=== PATIENT | female | born 1960 | race Caucasian/White ===

== ENCOUNTER 2021-01-01 14:00 | Inpatient (IN) | payer SELFPAY ==
[~2021-01-01] VITALS: Ht 165.1 cm; Wt 108.9 kg
--- NOTE | 2021-01-01 14:07 | ED General ---
General Stated Complaint: SOB History of Present Illness Date Seen by Provider: Jan 01, 2021 Time Seen by Provider: 14:07 Initial Comments 60-year-old female presents with shortness of breath. Patient reports that she has had shortness of breath for about 4 days. Patient has what sounds like an underlying COPD and takes inhalers for it. She reports that she has had "pneumonia" 5 or 6 times in the past and this seems similar. Patient states that she has not drink for 2 years but has been drinking vodka and large amounts for the last 3 days. Patient denies any chest pain. She denies any fevers or chills. She has been increasing and using inhaler for the last 4 days. Patient has a chronic cough. She denies any fevers or chills. She has not obtained a Covid vaccination and does not know of any Covid exposure. Patient believes she has allergies but she does not know what they are. Allergies and Home Medications Allergies Coded Allergies: No Known Drug Allergies (Unverified , 01/01/21) Patient Home Medication List Home Medication List Reviewed: Yes Review of Systems Review of Systems Constitutional: No chills, No fever; malaise EENTM: no symptoms reported Respiratory: cough, short of breath, wheezing Cardiovascular: No chest pain, No palpitations Gastrointestinal: No abdominal pain, No nausea, No vomiting Genitourinary: no symptoms reported Musculoskeletal: no symptoms reported Skin: no symptoms reported Psychiatric/Neurological: See HPI Hematologic/Lymphatic: No Symptoms Reported Immunological/Allergic: no symptoms reported Past Dquosxg-Ppdatq-Xehwxs Hx Patient Social History Tobacco Use?: No Physical Exam Vital Signs Vital Signs - First Documented 01/01/21 14:06 Temp 36.5 Pulse 109 Resp 20 B/P (MAP) 163/63 (96) Pulse Ox 91 O2 Delivery Nasal Cannula O2 Flow Rate 2.00 Capillary Refill : Height, Weight, BMI Height: '" Weight: lbs. oz. kg; BMI Method: General Appearance: Anxious HEENT: Pharynx Normal Neck: Non Tender, Supple Respiratory: No Accessory Muscle Use, No Respiratory Distress, Decreased Breath Sounds, Wheezing Cardiovascular: Tachycardia Gastrointestinal: Non Tender, Soft Extremity: Normal Capillary Refill, Normal Range of Motion Neurologic/Psychiatric: No Motor/Sensory Deficits, Other (Intoxicated) Skin: Normal Color, Warm/Dry Focused Exam Lactate Level 01/01/21 14:23: Lactic Acid Level 3.89*H 01/01/21 16:22: Lactic Acid Level 3.56*H Lactic Acid Level Laboratory Tests Test 01/01/21 14:23 01/01/21 16:22 Lactic Acid Level 3.89 MMOL/L (0.50-2.00) *H 3.56 MMOL/L (0.50-2.00) *H Progress/Results/Core Measures Suspected Sepsis SIRS Temperature: Pulse: Respiratory Rate: Laboratory Tests 01/01/21 14:23: White Blood Count 7.7 Blood Pressure / Mean: 01/01/21 14:23: Lactic Acid Level 3.89*H 01/01/21 16:22: Lactic Acid Level 3.56*H Laboratory Tests 01/01/21 14:23: Creatinine 0.67, Platelet Count 155, Total Bilirubin 0.5 Results/Orders Lab Results Laboratory Tests Test 01/01/21 14:10 01/01/21 14:23 01/01/21 14:26 01/01/21 16:22 Range/Units Urine Color YELLOW Urine Clarity CLOUDY Urine pH 6.0 5-9 Urine Specific Elida 1.020 1.016-1.022 Urine Protein 2+ H NEGATIVE Urine Glucose (UA) NEGATIVE NEGATIVE Urine Ketones NEGATIVE NEGATIVE Urine Nitrite NEGATIVE NEGATIVE Urine Bilirubin NEGATIVE NEGATIVE Urine Urobilinogen >=8.0 < = 1.0 MG/DL Urine Leukocyte Esterase TRACE H NEGATIVE Urine RBC (Auto) TRACE-I NEGATIVE Urine RBC 2-5 H /HPF Urine WBC 10-25 H /HPF Urine Squamous Epithelial Cells 25-50 H /HPF Urine Crystals NONE /LPF Urine Bacteria LARGE H /HPF Urine Casts NONE /LPF Urine Mucus NEGATIVE /LPF Urine Culture Indicated NO Urine Opiates Screen POSITIVE H NEGATIVE Urine Oxycodone Screen NEGATIVE NEGATIVE Urine Methadone Screen NEGATIVE NEGATIVE Urine Propoxyphene Screen NEGATIVE NEGATIVE Urine Barbiturates Screen NEGATIVE NEGATIVE Ur Tricyclic Antidepressants Screen NEGATIVE NEGATIVE Urine Phencyclidine Screen NEGATIVE NEGATIVE Urine Amphetamines Screen NEGATIVE NEGATIVE Urine Methamphetamines Screen NEGATIVE NEGATIVE Urine Benzodiazepines Screen POSITIVE H NEGATIVE Urine Cocaine Screen NEGATIVE NEGATIVE Urine Cannabinoids Screen NEGATIVE NEGATIVE White Blood Count 7.7 4.3-11.0 10^3/uL Red Blood Count 4.18 L 4.35-5.85 10^6/uL Hemoglobin 12.2 11.5-16.0 G/DL Hematocrit 36 35-52 % Mean Corpuscular Volume 87 80-99 FL Mean Corpuscular Hemoglobin 29 25-34 PG Mean Corpuscular Hemoglobin Concent 34 32-36 G/DL Red Cell Distribution Width 14.6 H 10.0-14.5 % Platelet Count 155 130-400 10^3/uL Mean Platelet Volume 10.6 H 7.4-10.4 FL Immature Granulocyte % (Auto) 0 % Neutrophils (%) (Auto) 67 42-75 % Lymphocytes (%) (Auto) 27 12-44 % Monocytes (%) (Auto) 5 0-12 % Eosinophils (%) (Auto) 0 0-10 % Basophils (%) (Auto) 0 0-10 % Neutrophils # (Auto) 5.2 1.8-7.8 X 10^3 Lymphocytes # (Auto) 2.1 1.0-4.0 X 10^3 Monocytes # (Auto) 0.4 0.0-1.0 X 10^3 Eosinophils # (Auto) 0.0 0.0-0.3 10^3/uL Basophils # (Auto) 0.0 0.0-0.1 10^3/uL Immature Granulocyte # (Auto) 0.0 0.0-0.1 10^3/uL Sodium Level 138 135-145 MMOL/L Potassium Level 3.4 L 3.6-5.0 MMOL/L Chloride Level 99 98-107 MMOL/L Carbon Dioxide Level 21 21-32 MMOL/L Anion Gap 18 H 5-14 MMOL/L Blood Urea Nitrogen 8 7-18 MG/DL Creatinine 0.67 0.60-1.30 MG/DL Estimat Glomerular Filtration Rate 89 BUN/Creatinine Ratio 12 Glucose Level 143 H 70-105 MG/DL Lactic Acid Level 3.89 *H 3.56 *H 0.50-2.00 MMOL/L Calcium Level 8.3 L 8.5-10.1 MG/DL Corrected Calcium 8.5 8.5-10.1 MG/DL Magnesium Level 1.6 1.6-2.4 MG/DL Total Bilirubin 0.5 0.1-1.0 MG/DL Aspartate Amino Transf (AST/SGOT) 89 H 5-34 U/L Alanine Aminotransferase (ALT/SGPT) 75 H 0-55 U/L Alkaline Phosphatase 334 H 40-136 U/L Total Protein 7.0 6.4-8.2 GM/DL Albumin 3.8 3.2-4.5 GM/DL Serum Alcohol 163 H <10 MG/DL My Orders Orders - RONAK THOMAS DO Alcohol (01/01/21 14:12) Cbc With Automated Diff (01/01/21 14:12) Comprehensive Metabolic Panel (01/01/21 14:12) Drug Screen Stat (Urine) (01/01/21 14:12) Magnesium (01/01/21 14:12) Ua Culture If Indicated (01/01/21 14:12) Albuterol/Ipra Inhalation Soln (Duoneb I (01/01/21 14:15) Methylprednisolone Sod Succ (Solu-Medrol (01/01/21 14:12) Svn Small Volume Nebulizer (01/01/21 14:12) Chest 1 View Ap/Pa Only (01/01/21 14:12) Covid 19 Inhouse Test (01/01/21 14:12) Ceftriaxone (Rocephin) (01/01/21 14:30) Azithromycin Injection (Zithromax Inject (01/01/21 14:30) Lactic Acid Analyzer (01/01/21 14:27) Acetaminophen Tablet (Tylenol Tablet) (01/01/21 14:52) Ondansetron Injection (Zofran Injectio (01/01/21 15:10) Ondansetron Injection (Zofran Injectio (01/01/21 15:15) Medications Given in ED Current Medications Medications Dose Ordered Sig/Gallito Route Start Time Stop Time Status Last Admin Dose Admin Albuterol/ Ipratropium 3 ml ONCE ONCE INH 01/01/21 14:15 01/01/21 14:16 DC 01/01/21 14:55 3 ML Azithromycin 500 mg/Sodium Chloride 255 ml @ 250 mls/hr ONCE ONCE IV 01/01/21 14:30 01/01/21 15:31 DC 01/01/21 15:01 250 MLS/HR Ceftriaxone Sodium 1000 mg/ Sterile Water 10 ml @ 200 mls/hr ONCE ONCE IV 01/01/21 14:30 01/01/21 14:32 DC 01/01/21 14:56 200 MLS/HR Ondansetron HCl 4 mg ONCE ONCE IVP 7/23/21 15:15 01/01/21 15:16 DC 01/01/21 15:15 4 MG Vital Signs/I&O 01/01/21 01/01/21 14:06 16:18 Temp 36.5 Pulse 109 98 Resp 20 20 B/P (MAP) 163/63 (96) 163/63 Pulse Ox 91 94 O2 Delivery Nasal Cannula Nasal Cannula O2 Flow Rate 2.00 2.00 Capillary Refill : Progress Note : Progress Note Patient x-ray shows pulmonary edema versus consolidation. Patient's lactic acid is elevated is likely result of her alcohol intoxication and abuse. Patient is requiring small amount of 2 L oxygen. We did attempt to wean starting at 1 L. She was able to maintain her oxygen on 1 L for a few minutes and it started to drop back in the upper 80s again. Patient is a likely with just some COPD with some pulmonary edema but she will be treated with azithromycin and Rocephin for early pneumonia. Patient stable, I did discuss with Dr. Juan and we will admit her for observation at [facility]. Patient was transferred in stable condition. ECG Initial ECG Impression Date: Jan 01, 2021 Initial ECG Impression Time: 14:12 Initial ECG Rate: 103 Initial ECG Rhythm: S.Tach Initial ECG Intervals: Normal Initial ECG Impression: Normal Comment No acute findings Diagnostic Imaging Diagonstic Imaging: Xray Plain Films/CT/US/NM/MRI: chest Comments CHEST 1 VIEW AP/PA ONLY EXAMINATION: Chest 1 view. HISTORY: SOB. COMPARISON: None available. FINDINGS: Heart size is upper limits of normal. There is prominence of the pulmonary vasculature which can be seen with pulmonary vascular congestion. There are patchy interstitial opacities within the left midlung and bilateral lung bases. No pleural effusion or pneumothorax. The osseous structures are intact. IMPRESSION: 1. Findings of pulmonary vascular congestion with findings of pulmonary edema or bibasilar atelectasis/consolidation. Departure Impression Primary Impression: Hypoxia Additional Impressions: Alcohol intoxication Qualified Codes: F10.920 - Alcohol use, unspecified with intoxication, uncomplicated COPD (chronic obstructive pulmonary disease) Qualified Codes: J44.9 - Chronic obstructive pulmonary disease, unspecified Pulmonary edema Qualified Codes: J81.0 - Acute pulmonary edema Disposition: 30 STILL A PATIENT Condition: Stable Departure-Patient Inst. Referrals: NO,LOCAL PHYSICIAN (PCP/Family) Primary Care Physician RONAK THOMAS DO Jan 01, 2021 14:07
[2021-01-01] MEDS ORDERED: methylPREDNISolone 125 MG (Solu-MEDROL) VIAL IV STA (14:12)
[2021-01-01] MEDS ORDERED: RT-ALBUTEROL/IPRATROPIUM 3 ML (DUONEB) VIAL INH ONE (14:15)
[2021-01-01] MEDS ORDERED: AZITHROMYCIN INJECTION 500 MG in NS (IVPB) 250 ML IV ONE (14:30)
[2021-01-01] MEDS ORDERED: cefTRIAXone 1,000 MG in WATER (STERILE) FOR INJECTION 10 ML IV ONE (14:30)
--- NOTE | 2021-01-01 14:35 | Diagnostic Imaging Report ---
EXAMINATION: Chest 1 view. HISTORY: SOB. COMPARISON: None available. FINDINGS: Heart size is upper limits of normal. There is prominence of the pulmonary vasculature which can be seen with pulmonary vascular congestion. There are patchy interstitial opacities within the left midlung and bilateral lung bases. No pleural effusion or pneumothorax. The osseous structures are intact. IMPRESSION: 1. Findings of pulmonary vascular congestion with findings of pulmonary edema or bibasilar atelectasis/consolidation. Dictated by: Dictated on workstation # [id number]
[2021-01-01 14:43] LABS: WHITE BLOOD COUNT 7.7 10^3/uL (4.3-11.0)
[2021-01-01 14:44] LABS: BASOPHILS % (AUTO) 0 % (0-10); EOSINOPHILS % (AUTO) 0 % (0-10); HEMATOCRIT 36 % (35-52); HEMOGLOBIN 12.2 G/DL (11.5-16.0); LYMPHOCYTES % (AUTO) 27 % (12-44); MEAN CORPUSCULAR HEMOGLOBIN 29 PG (25-34); MEAN CORPUSCULAR HGB CONC 34 G/DL (32-36); MEAN CORPUSCULAR VOLUME 87 FL (80-99); MEAN PLATELET VOLUME 10.6 FL (7.4-10.4); MONOCYTES % (AUTO) 5 % (0-12); NEUTROPHILS % (AUTO) 67 % (42-75); PLATELET COUNT 155 10^3/uL (130-400)
[2021-01-01 14:45] LABS: LYMPHOCYTES # (AUTO) 2.1 X 10^3 (1.0-4.0); MONOCYTES # (AUTO) 0.4 X 10^3 (0.0-1.0); NEUTROPHILS # (AUTO) 5.2 X 10^3 (1.8-7.8)
[2021-01-01 14:54] LABS: POTASSIUM 3.4 MMOL/L (3.6-5.0)
[2021-01-01 14:55] LABS: ALBUMIN 3.8 GM/DL (3.2-4.5); BILIRUBIN,TOTAL 0.5 MG/DL (0.1-1.0); CALCIUM 8.3 MG/DL (8.5-10.1); CREATININE SERUM 0.67 MG/DL (0.60-1.30); MAGNESIUM 1.6 MG/DL (1.6-2.4)
[2021-01-01] MEDS: ACETAMINOPHEN 500 MG TAB (TYLENOL) PO STA ×2 (15:04→15:07)
[2021-01-01 15:07] LABS: BILIRUBIN,URINE NEGATIVE (NEGATIVE); CLARITY,URINE CLOUDY; COLOR,URINE YELLOW; GLUCOSE, URINE (UA) NEGATIVE (NEGATIVE); KETONES,URINE NEGATIVE (NEGATIVE); NITRITE,URINE NEGATIVE (NEGATIVE); PROTEIN,URINE 2+ (NEGATIVE)
[2021-01-01 15:08] LABS: BACTERIA,URINE LARGE /HPF; LEUKOCYTE ESTERASE ,URINE TRACE (NEGATIVE); SQUAMOUS EPITHELIAL CELL,UR 25-50 /HPF
[2021-01-01] MEDS ORDERED: ONDANSETRON 4 MG/2 ML (SDV) Z0FRAN ONE (15:10)
[2021-01-01 15:11] LABS: AMPHETAMINE SCREEN, URINE NEGATIVE (NEGATIVE); BENZODIAZEPINES SCREEN URINE POSITIVE (NEGATIVE); CANNABINOID SCREEN, URINE NEGATIVE (NEGATIVE); COCAINE SCREEN URINE NEGATIVE (NEGATIVE); METHAMPHETAMINE SCREEN URINE S NEGATIVE (NEGATIVE); OPIATE SCREEN URINE POSITIVE (NEGATIVE)
[2021-01-01 15:12] LABS: BARBITURATE SCREEN URINE NEGATIVE (NEGATIVE); METHADONE STAT NEGATIVE (NEGATIVE); OXYCODONE STAT NEGATIVE (NEGATIVE); PROPOXYPHENE STAT NEGATIVE (NEGATIVE); TRICYCLIC ANTIDEPRESSANTS SCRE NEGATIVE (NEGATIVE)
[2021-01-01] MEDS ORDERED: ONDANSETRON 4 MG/2 ML (SDV) Z0FRAN IVP ONE (15:15)
[2021-01-01 17:54] VITALS: BP 136/72
[2021-01-01] MEDS ORDERED: RT-ALBUTEROL SULF 2.5 MG/3 ML PRE-MIX VIAL IH PRN (18:00)
[2021-01-01] MEDS ORDERED: CATHETER FLUSH 10 ML SYR IV PRN (18:00)
[2021-01-01] MEDS: LACTATED RINGERS 1,000 ML IV SCH (18:47)
[2021-01-01] MEDS ORDERED: HYDR-3817 PO (19:33)
[2021-01-01] MEDS ORDERED: QUET100T PO (19:33)
[2021-01-01] MEDS ORDERED: QUET50TA PO ×2 (19:33)
[2021-01-01] MEDS ORDERED: QUET400T PO (19:33)
[2021-01-01] MEDS ORDERED: PRAM0.5T2 PO (19:33)
[2021-01-01] MEDS ORDERED: ALPR0.5T PO (19:33)
[2021-01-01] MEDS ORDERED: MTP25TSR PO (19:33)
[2021-01-01 20:26] VITALS: BP 132/77
[2021-01-01] MEDS ORDERED: PRAMIPEXOLE 0.5 MG TAB (MIRAPEX) PO SCH (21:00)
[2021-01-01] MEDS ORDERED: RT-ALBUTEROL/IPRATROPIUM 3 ML (DUONEB) VIAL INH SCH (21:00)
[2021-01-01] MEDS: QUEtiapine 200 MG (SEROquel) TAB IMMEDIATE RELEASE PO SCH (21:36)
[2021-01-01] MEDS: meTOprolol TARTRATE 25 MG (LOPRESSOR) TABLET PO SCH (21:37)
[2021-01-01] MEDS ORDERED: ENOXAPARIN 30 MG/0.3 ML (LOVENOX) SYR SC SCH (21:45)
[2021-01-01 23:08] VITALS: BP 121/57
[2021-01-02] MEDS: RT-ALBUTEROL INHALER HFA (VENTOLIN HFA) 18 GM IH SCH ×4 (01:44→21:09)
[2021-01-02] MEDS: LACTATED RINGERS 1,000 ML IV SCH ×3 (02:27→18:39)
[2021-01-02 04:08] VITALS: BP 128/61
[2021-01-02] MEDS: dexAMETHasone 6 MG TAB (DECADRON) PO SCH (05:45)
[2021-01-02 05:53] LABS: BASOPHILS % (AUTO) 0 % (0-10); EOSINOPHILS % (AUTO) 0 % (0-10); HEMATOCRIT 35 % (35-52); HEMOGLOBIN 11.7 g/dL (11.5-16.0); LYMPHOCYTES # (AUTO) 0.9 10^3/uL (1.0-4.0); LYMPHOCYTES % (AUTO) 22 % (12-44); MEAN CORPUSCULAR HEMOGLOBIN 29 pg (25-34); MEAN CORPUSCULAR HGB CONC 33 g/dL (32-36); MEAN CORPUSCULAR VOLUME 89 fL (80-99); MEAN PLATELET VOLUME 10.9 fL (9.0-12.2); MONOCYTES # (AUTO) 0.2 10^3/uL (0.0-1.0); MONOCYTES % (AUTO) 4 % (0-12); NEUTROPHILS # (AUTO) 3.2 10^3/uL (1.8-7.8); NEUTROPHILS % (AUTO) 75 % (42-75); PLATELET COUNT 144 10^3/uL (130-400); WHITE BLOOD COUNT 4.3 10^3/uL (4.3-11.0)
[2021-01-02 06:02] LABS: ALBUMIN 3.6 GM/DL (3.2-4.5)
[2021-01-02 06:04] LABS: CALCIUM 8.4 MG/DL (8.5-10.1)
[2021-01-02 06:05] LABS: TOTAL PROTEIN 6.7 GM/DL (6.4-8.2)
[2021-01-02 06:07] LABS: BILIRUBIN,TOTAL 0.5 MG/DL (0.1-1.0)
[2021-01-02 06:09] LABS: CREATININE SERUM 0.93 MG/DL (0.60-1.30)
[2021-01-02] MEDS ORDERED: predniSONE 20 MG TAB PO SCH (07:00)
[2021-01-02 08:00] VITALS: BP 112/69
--- NOTE | 2021-01-02 08:35 | History & Physical-Hospitalist ---
History of Present Illness HPI/Chief Complaint Ilana Camara is a 60-year-old female with past medical history of anxiety, depression, COPD, alcohol abuse, who presented with shortness of breath. She has been short of breath for several days. She has also had a cough. She denies any fevers or chills. She denies any abdominal pain. She denies any nausea or vomiting. She has not had diarrhea. She denies chest pain. She did not get the Covid vaccine. She does not know of any sick contacts. She has been drinking heavily recently. Source: patient Exam Limitations: no limitations Date Seen 01/02/21 Time Seen by a Provider: 08:10 Attending Physician Carmel Arellano MD PCP No,Local Physician Referring Physician Date of Admission Jan 01, 2021 at 22:16 Home Medications & Allergies Home Medications Reviewed patient Home Medication Reconciliation performed by pharmacy medication reconciliations pharmacy technician instructor and/or nursing. Patients Allergies have been reviewed. Allergies Allergies Coded Allergies No Known Drug Allergies (Unverified01/01/21) Past Fokxdwx-Ogfwrp-Ouubbz Hx Patient Social History Tobacco Use?: No Smoking Status: Never a Smoker Smokeless Tobacco Frequency: Never a User Use of E-Cig and/or Vaping dev: No Substance use?: No Alcohol Use?: Yes Alcohol type: Hard Liquor Additional alcohol type: started drinking recently for pain management Additional Alcohol Comments: last 3 days being drinking heavly Pt feels they are or have been: Yes Current Status status: No status: No Advance Directives: No Communicates: Verbally Primary Language: Latvian Preferred Spoken Language: Latvian Is interpretation needed?: No Implanted or Applied Medical D: None Family Medical History No Pertinent Family Hx Review of Systems Constitutional: no symptoms reported EENTM: no symptoms reported Respiratory: cough, short of breath Cardiovascular: no symptoms reported Gastrointestinal: no symptoms reported Genitourinary: no symptoms reported Musculoskeletal: no symptoms reported Skin: no symptoms reported Psychiatric/Neurological: No Symptoms Reported Physical Exam Physical Exam Vital Signs Vital Signs - First Documented 01/01/21 14:06 Temp 36.5 Pulse 109 Resp 20 B/P (MAP) 163/63 (96) Pulse Ox 91 O2 Delivery Nasal Cannula O2 Flow Rate 2.00 Capillary Refill : Less Than 3 Seconds Height, Weight, BMI Height: '" Weight: lbs. oz. kg; 39.95 BMI Method: General Appearance: No Apparent Distress, Obese HEENT: PERRL/EOMI, Pharynx Normal Neck: Normal Inspection, Supple Respiratory: Lungs Clear, Normal Breath Sounds, No Respiratory Distress Cardiovascular: Regular Rate, Rhythm, No Edema, No Murmur Gastrointestinal: Normal Bowel Sounds, Non Tender, Soft Extremity: Normal Inspection, Non Tender, No Pedal Edema Neurologic/Psychiatric: Alert, Oriented x3, No Motor/Sensory Deficits, Depressed Affect Skin: Normal Color, Warm/Dry Lymphatic: No Adenopathy Results Results/Procedures Labs Laboratory Tests 01/01/21 14:23 01/02/21 05:13 Patient resulted labs reviewed. Imaging: Reviewed Imaging Report Assessment/Plan Admission Diagnosis Acute respiratory failure due to COVID-19 Admission Status: Inpatient Order (span 2 midnights) Reason for Inpatient Admission: Respiratory failure Assessment and Plan Acute respiratory failure due to COVID-19 COPD Covid positive on admission 01/01, symptoms started a few days prior Chest x-ray consistent with Covid, bilateral infiltrates Ddimer mildly elevated, monitor Prophylactic Lovenox Procalcitonin elevated Started on Rocephin and Azithromycin Requiring 4 L nasal cannula MAT protocol Started on Decadron Patient does not want remdesivir or convalescent plasma Acute alcohol intoxication Alcohol abuse Lactic acidosis Reports remote history of withdrawal Denies every day alcohol use at this time Lactic acidosis likely due to acute intoxication IV fluids Monitor Anxiety Depression Continue home meds Morbid obesity Clinically significant, no acute management needs DVT prophylaxis: Lovenox Diagnosis/Problems Diagnosis/Problems (1) Acute respiratory failure due to COVID-19 Status: Acute (2) COPD (chronic obstructive pulmonary disease) Status: Chronic Qualifiers: COPD type: unspecified COPD Qualified Codes: J44.9 - Chronic obstructive pulmonary disease, unspecified (3) Acute alcohol intoxication Status: Acute Qualifiers: Complication of substance-induced condition: uncomplicated Qualified Codes: F10.920 - Alcohol use, unspecified with intoxication, uncomplicated (4) Lactic acidosis Status: Acute (5) Anxiety and depression Status: Chronic (6) Morbid obesity Status: Chronic CARMEL ARELLANO MD Jan 02, 2021 08:35
[2021-01-02] MEDS: QUEtiapine 100 MG (SEROquel) TAB IMMEDIATE RELEASE PO SCH ×2 (10:57→11:01)
[2021-01-02] MEDS: AZITHROMYCIN 250 MG TAB (ZITHROMAX) PO SCH (10:57)
[2021-01-02] MEDS: meTOprolol TARTRATE 25 MG (LOPRESSOR) TABLET PO SCH ×2 (10:58→21:09)
[2021-01-02 12:00] VITALS: BP 115/70
[2021-01-02] MEDS: ENOXAPARIN 40 MG/0.4 ML (LOVENOX) SYR SC SCH ×2 (12:50→21:10)
[2021-01-02] MEDS ORDERED: AZITHROMYCIN 500 MG/NS 250 ML IVPB IV SCH ×2 (15:00)
[2021-01-02] MEDS: cefTRIAXone 1,000 MG/SWFI 10 ML IV PUSH IV SCH ×2 (15:24)
[2021-01-02] MEDS ORDERED: REMDESIVIR INJ 200 MG in NS (IVPB) 210 ML IV ONE (16:00)
[2021-01-02 16:30] VITALS: BP 130/73
[2021-01-02 19:45] VITALS: BP 136/80
[2021-01-02] MEDS: QUEtiapine 200 MG (SEROquel) TAB IMMEDIATE RELEASE PO SCH (21:09)
[2021-01-02] MEDS: PRAMIPEXOLE 0.5 MG TAB (MIRAPEX) PO SCH (21:09)
[2021-01-02] MEDS: ACETAMINOPHEN 325 MG TABLET PO PRN (21:19)
[2021-01-02] MEDS ORDERED: ALPRAZolam 0.25 MG (XANAX) TAB PO PRN (21:45)
[2021-01-03] VITALS (7 sets, daily range): BP systolic 108–157; BP diastolic 65–83
[2021-01-03] MEDS: ACETAMINOPHEN 325 MG TABLET PO PRN (02:23)
[2021-01-03] MEDS: RT-ALBUTEROL INHALER HFA (VENTOLIN HFA) 18 GM IH SCH ×6 (02:30→21:16)
[2021-01-03] MEDS: LACTATED RINGERS 1,000 ML IV SCH ×3 (03:36→14:41)
[2021-01-03] MEDS: dexAMETHasone 6 MG TAB (DECADRON) PO SCH (06:07)
[2021-01-03] MEDS ORDERED: BISACODYL 10 MG SUPP (DULCOLAX) PR PRN (07:45)
[2021-01-03] MEDS ORDERED: ANTACID SUSP 30 ML UDC (MYLANTA) PO PRN (07:45)
[2021-01-03] MEDS ORDERED: ONDANSETRON 4 MG (ZOFRAN) ORAL DISSOLVE TAB PO PRN (07:45)
[2021-01-03] MEDS ORDERED: polyethylene glycoL POWDER 17 GM (MIRALAX) PACK PO PRN (07:45)
[2021-01-03] MEDS ORDERED: diphenhydrAMINE 25 MG TAB (BENADRYL) PO PRN (07:45)
[2021-01-03] MEDS: ONDANSETRON 4 MG/2 ML (SDV) Z0FRAN IV PRN ×2 (09:30→10:54)
[2021-01-03] MEDS: AZITHROMYCIN 250 MG TAB (ZITHROMAX) PO SCH (10:53)
[2021-01-03] MEDS: ENOXAPARIN 40 MG/0.4 ML (LOVENOX) SYR SC SCH ×2 (10:54→20:53)
[2021-01-03] MEDS: QUEtiapine 100 MG (SEROquel) TAB IMMEDIATE RELEASE PO SCH (10:54)
[2021-01-03] MEDS: SENNOSIDES 8.6 MG (SENOKOT) TAB PO SCH ×2 (10:54→20:55)
[2021-01-03] MEDS: DOCUSATE SODIUM 100 MG (COLACE) CAP PO SCH ×2 (10:54→20:55)
[2021-01-03] MEDS: PRAMIPEXOLE 0.5 MG TAB (MIRAPEX) PO SCH ×2 (10:54→20:54)
[2021-01-03] MEDS: ALPRAZolam 0.5 MG (XANAX) TAB PO PRN ×2 (10:54→20:55)
[2021-01-03] MEDS: meTOprolol TARTRATE 25 MG (LOPRESSOR) TABLET PO SCH ×2 (10:54→20:55)
[2021-01-03] MEDS: inSUlin ASPART (NovoLOG) 1 UNIT/0.01 ML (CHARGE PER UNIT) SC SCH ×3 (10:58→20:48)
--- NOTE | 2021-01-03 12:01 | Progress Note - Hospitalist ---
Subjective HPI/CC On Admission Date Seen by Provider: Jan 03, 2021 Time Seen by Provider: 10:40 Ilana Camara is a 60-year-old female with past medical history of anxiety, depression, COPD, alcohol abuse, who presented with shortness of breath. She has been short of breath for several days. She has also had a cough. She denies any fevers or chills. She denies any abdominal pain. She denies any nausea or vomiting. She has not had diarrhea. She denies chest pain. She did not get the Covid vaccine. She does not know of any sick contacts. She has been drinking heavily recently. Subjective/Events-last exam She is feeling worse today. She does not feel short of breath. She has been having fevers. She still has a cough. She just feels unwell. Focused Exam Lactate Level 01/01/21 14:23: Lactic Acid Level 3.89*H 01/01/21 16:22: Lactic Acid Level 3.56*H 01/01/21 22:40: Lactic Acid Level 1.32 Objective Exam Vital Signs Vital Signs Date Time Temp Pulse Resp B/P (MAP) Pulse Ox O2 Delivery O2 Flow Rate FiO2 01/03/21 10:45 97 Vapotherm 30.00 75 01/03/21 08:00 36.5 103 32 157/83 (107) Capillary Refill : Less Than 3 Seconds General Appearance: Anxious, Mild Distress, Obese Respiratory: Decreased Breath Sounds, Respiratory Distress (Tachypnea) Cardiovascular: Regular Rate, Rhythm, No Edema, No Murmur Gastrointestinal: Normal Bowel Sounds, Non Tender, Soft Extremity: Normal Inspection, Non Tender, No Pedal Edema Neurologic/Psychiatric: Alert, Oriented x3, No Motor/Sensory Deficits, Normal Mood/Affect Skin: Normal Color, Warm/Dry Results/Procedures Lab Patient resulted labs reviewed. Imaging: Reviewed Imaging Report Assessment/Plan Assessment and Plan Assess & Plan/Chief Complaint Acute respiratory failure due to COVID-19 COPD Worsening oxygen requirement, transitioned to Vapotherm Covid positive on admission 01/01, symptoms started a few days prior Chest x-ray consistent with Covid, bilateral infiltrates Ddimer mildly elevated, repeat tomorrow Prophylactic Lovenox Procalcitonin elevated Continue Rocephin and Azithromycin MAT protocol Continue Decadron Remdesivir and convalescent plasma ordered after patient agreed yesterday afternoon Check CRP, consider Actemra Acute alcohol intoxication Alcohol abuse Reports remote history of withdrawal Denies every day alcohol use at this time Monitor Anxiety Depression Continue home meds Morbid obesity Clinically significant, no acute management needs DVT prophylaxis: Lovenox Lactic acidosis, resolved Diagnosis/Problems Diagnosis/Problems (1) Acute respiratory failure due to COVID-19 Status: Acute (2) COPD (chronic obstructive pulmonary disease) Status: Chronic Qualifiers: COPD type: unspecified COPD Qualified Codes: J44.9 - Chronic obstructive pulmonary disease, unspecified (3) Acute alcohol intoxication Status: Acute Qualifiers: Complication of substance-induced condition: uncomplicated Qualified Codes: F10.920 - Alcohol use, unspecified with intoxication, uncomplicated (4) Lactic acidosis Status: Resolved Resolution Date/Time: 01/03/21 @ 12:01 (5) Anxiety and depression Status: Chronic (6) Morbid obesity Status: Chronic CARMEL ARELLANO MD Jan 03, 2021 12:01
[2021-01-03 12:39] LABS: BASOPHILS % (AUTO) 0 % (0-10); EOSINOPHILS % (AUTO) 0 % (0-10); HEMATOCRIT 31 % (35-52); HEMOGLOBIN 10.3 g/dL (11.5-16.0); LYMPHOCYTES # (AUTO) 0.9 10^3/uL (1.0-4.0); LYMPHOCYTES % (AUTO) 11 % (12-44); MEAN CORPUSCULAR HEMOGLOBIN 30 pg (25-34); MEAN CORPUSCULAR HGB CONC 33 g/dL (32-36); MEAN CORPUSCULAR VOLUME 89 fL (80-99); MEAN PLATELET VOLUME 10.5 fL (9.0-12.2); MONOCYTES # (AUTO) 0.4 10^3/uL (0.0-1.0); MONOCYTES % (AUTO) 5 % (0-12); NEUTROPHILS # (AUTO) 6.3 10^3/uL (1.8-7.8); NEUTROPHILS % (AUTO) 82 % (42-75); PLATELET COUNT 133 10^3/uL (130-400); WHITE BLOOD COUNT 7.6 10^3/uL (4.3-11.0)
[2021-01-03 12:51] LABS: CALCIUM 8.1 MG/DL (8.5-10.1)
[2021-01-03 12:55] LABS: CREATININE SERUM 0.85 MG/DL (0.60-1.30)
[2021-01-03] MEDS: cefTRIAXone 1,000 MG/SWFI 10 ML IV PUSH IV SCH ×2 (14:40)
--- NOTE | 2021-01-03 15:48 | Tele-ICU Consult ---
Progress Note 60 y/o presents with SOB, has hx of COPD Has not had Covid vaccine. CXR: heart size is upper limits of normal. There is prominence of the pulmonary vasculature which can be seen with pulmonary vascular congestion. There are patchy interstitial opacities within the left midlung and bilateral lung bases. No pleural effusion or pneumothorax. The osseous structures are intact. IMPRESSION: 1. Findings of pulmonary vascular congestion with findings of pulmonary edema or bibasilar atelectasis/consolidation. Labs: COVID positive Lactate: 3.89 UA with bacteria , wbc and leukocyte esterase trace WBC: 4.18 Hgb: 12.2 Plt 155 Na 138 K: 3.4 Cl: 99 CO2 18 BUN 8 Creat: 0.67 Glu 143 ETOH 163 IMP: COVID PNA r/o bacterial PLAN: cultured Cefepime and zithromax Remdisivir and Decadron started Lovenox started Vapotherm for hypoxiaLaboratory Tests 01/01/21 14:10: Urine Color YELLOW, Urine Clarity CLOUDY, Urine pH 6.0, Urine Specific [place] 1.020, Urine Protein 2+H, Urine Glucose (UA) NEGATIVE, Urine Ketones NEGATIVE, Urine Nitrite NEGATIVE, Urine Bilirubin NEGATIVE, Urine Urobilinogen >=8.0, Urine Leukocyte Esterase TRACEH, Urine RBC (Auto) TRACE-I, Urine RBC 2-5H, Urine WBC 10-25H, Urine Squamous Epithelial Cells 25-50H, Urine Crystals NONE, Urine Bacteria LARGEH, Urine Casts NONE, Urine Mucus NEGATIVE, Urine Culture Indicated NO, Urine Opiates Screen POSITIVEH, Urine Oxycodone Screen NEGATIVE, Urine Methadone Screen NEGATIVE, Urine Propoxyphene Screen NEGATIVE, Urine Barbiturates Screen NEGATIVE, Ur Tricyclic Antidepressants Screen NEGATIVE, Urine Phencyclidine Screen NEGATIVE, Urine Amphetamines Screen NEGATIVE, Urine Methamphetamines Screen NEGATIVE, Urine Benzodiazepines Screen POSITIVEH, Urine Cocaine Screen NEGATIVE, Urine Cannabinoids Screen NEGATIVE 01/01/21 14:23: White Blood Count 7.7, Red Blood Count 4.18L, Hemoglobin 12.2, Hematocrit 36, Mean Corpuscular Volume 87, Mean Corpuscular Hemoglobin 29, Mean Corpuscular Hemoglobin Concent 34, Red Cell Distribution Width 14.6H, Platelet Count 155, Mean Platelet Volume 10.6H, Immature Granulocyte % (Auto) 0, Neutrophils (%) (Auto) 67, Lymphocytes (%) (Auto) 27, Monocytes (%) (Auto) 5, Eosinophils (%) (Auto) 0, Basophils (%) (Auto) 0, Neutrophils # (Auto) 5.2, Lymphocytes # (Auto) 2.1, Monocytes # (Auto) 0.4, Eosinophils # (Auto) 0.0, Basophils # (Auto) 0.0, Immature Granulocyte # (Auto) 0.0, Sodium Level 138, Potassium Level 3.4L, Chloride Level 99, Carbon Dioxide Level 21, Anion Gap 18H, Blood Urea Nitrogen 8, Creatinine 0.67, Estimat Glomerular Filtration Rate 89, BUN/Creatinine Ratio 12, Glucose Level 143H, Lactic Acid Level 3.89*H, Calcium Level 8.3L, Corrected Calcium 8.5, Magnesium Level 1.6, Total Bilirubin 0.5, Aspartate Amino Transf (AST/SGOT) 89H, Alanine Aminotransferase (ALT/SGPT) 75H, Alkaline Phosphatase 334H, Total Protein 7.0, Albumin 3.8, Serum Alcohol 163H 01/01/21 14:26: SARS-CoV-2 RNA (RT-PCR) DetectedH 01/01/21 16:22: Lactic Acid Level 3.56*H 01/01/21 19:31: Procalcitonin 1.01H 01/01/21 22:40: Lactic Acid Level 1.32 01/02/21 05:13: White Blood Count 4.3, Red Blood Count 3.98, Hemoglobin 11.7, Hematocrit 35, Mean Corpuscular Volume 89, Mean Corpuscular Hemoglobin 29, Mean Corpuscular Hemoglobin Concent 33, Red Cell Distribution Width 14.6H, Platelet Count 144, Mean Platelet Volume 10.9, Immature Granulocyte % (Auto) 1, Neutrophils (%) (Auto) 75, Lymphocytes (%) (Auto) 22, Monocytes (%) (Auto) 4, Eosinophils (%) (Auto) 0, Basophils (%) (Auto) 0, Neutrophils # (Auto) 3.2, Lymphocytes # (Auto) 0.9L, Monocytes # (Auto) 0.2, Eosinophils # (Auto) 0.0, Basophils # (Auto) 0.0, Immature Granulocyte # (Auto) 0.0, D-Dimer 0.85H, Sodium Level 139, Potassium Level 4.0, Chloride Level 101, Carbon Dioxide Level 26, Anion Gap 12, Blood Urea Nitrogen 14, Creatinine 0.93, Estimat Glomerular Filtration Rate 61, BUN/Creatinine Ratio 15, Glucose Level 277H, Calcium Level 8.4L, Corrected Calc ium 8.7, Total Bilirubin 0.5, Aspartate Amino Transf (AST/SGOT) 49H, Alanine Aminotransferase (ALT/SGPT) 68H, Alkaline Phosphatase 276H, Total Protein 6.7, Albumin 3.6 01/03/21 10:57: Glucometer 141H 01/03/21 12:25: White Blood Count 7.6, Red Blood Count 3.46L, Hemoglobin 10.3L, Hematocrit 31L, Mean Corpuscular Volume 89, Mean Corpuscular Hemoglobin 30, Mean Corpuscular Hemoglobin Concent 33, Red Cell Distribution Width 14.7H, Platelet Count 133, Mean Platelet Volume 10.5, Immature Granulocyte % (Auto) 2, Neutrophils (%) (Auto) 82H, Lymphocytes (%) (Auto) 11L, Monocytes (%) (Auto) 5, Eosinophils (%) (Auto) 0, Basophils (%) (Auto) 0, Neutrophils # (Auto) 6.3, Lymphocytes # (Auto) 0.9L, Monocytes # (Auto) 0.4, Eosinophils # (Auto) 0.0, Basophils # (Auto) 0.0, Immature Granulocyte # (Auto) 0.1, D-Dimer 0.96H, Sodium Level 137, Potassium Level 4.0, Chloride Level 99, Carbon Dioxide Level 27, Anion Gap 11, Blood Urea Nitrogen 18, Creatinine 0.85, Estimat Glomerular Filtration Rate 68, BUN/Creatinine Ratio 21, Glucose Level 146H, Calcium Level 8.1L, C-Reactive Protein High Sensitivity 3.50H Laboratory Tests 01/01/21 14:10: Urine Protein 2+H, Urine Leukocyte Esterase TRACEH, Urine RBC 2-5H, Urine WBC 10-25H, Urine Squamous Epithelial Cells 25-50H, Urine Bacteria LARGEH, Urine Opiates Screen POSITIVEH, Urine Benzodiazepines Screen POSITIVEH 01/01/21 14:23: Red Blood Count 4.18L, Red Cell Distribution Width 14.6H, Mean Platelet Volume 10.6H, Potassium Level 3.4L, Anion Gap 18H, Glucose Level 143H, Lactic Acid Level 3.89*H, Calcium Level 8.3L, Aspartate Amino Transf (AST/SGOT) 89H, Alanine Aminotransferase (ALT/SGPT) 75H, Alkaline Phosphatase 334H, Serum Alcohol 163H 01/01/21 14:26: SARS-CoV-2 RNA (RT-PCR) DetectedH 01/01/21 16:22: Lactic Acid Level 3.56*H 01/01/21 19:31: Procalcitonin 1.01H 01/01/21 22:40: 01/02/21 05:13: Red Cell Distribution Width 14.6H, Lymphocytes # (Auto) 0.9L, D-Dimer 0.85H, Glucose Level 277H, Calcium Level 8.4L, Aspartate Amino Transf (AST/SGOT) 49H, Alanine Aminotransferase (ALT/SGPT) 68H, Alkaline Phosphatase 276H 01/03/21 10:57: Glucometer 141H 01/03/21 12:25: Red Blood Count 3.46L, Hemoglobin 10.3L, Hematocrit 31L, Red Cell Distribution Width 14.7H, Neutrophils (%) (Auto) 82H, Lymphocytes (%) (Auto) 11L, Lymphocytes # (Auto) 0.9L, D-Dimer 0.96H, Glucose Level 146H, Calcium Level 8.1L, C-Reactive Protein High Sensitivity 3.50H Focused Exam Lactate Level 01/01/21 14:23: Lactic Acid Level 3.89*H 01/01/21 16:22: Lactic Acid Level 3.56*H 01/01/21 22:40: Lactic Acid Level 1.32 Height, Weight, BMI Height: '" Weight: lbs. oz. kg; 39.95 BMI Method: CHRISTOPHER JUDGE MD Jan 03, 2021 15:48
[2021-01-03] MEDS: REMDESIVIR INJ 100 MG in NS (IVPB) 230 ML IV SCH (20:50)
[2021-01-03] MEDS: QUEtiapine 200 MG (SEROquel) TAB IMMEDIATE RELEASE PO SCH (20:54)
[2021-01-04] VITALS (14 sets, daily range): BP systolic 110–129; BP diastolic 61–73
[2021-01-04] MEDS: RT-ALBUTEROL INHALER HFA (VENTOLIN HFA) 18 GM IH SCH ×6 (02:11→23:07)
[2021-01-04] MEDS: LACTATED RINGERS 1,000 ML IV SCH (03:22)
[2021-01-04] MEDS: ALPRAZolam 0.5 MG (XANAX) TAB PO PRN ×3 (05:04→20:37)
[2021-01-04] MEDS: ONDANSETRON 4 MG/2 ML (SDV) Z0FRAN IV PRN (05:04)
[2021-01-04] MEDS: dexAMETHasone 6 MG TAB (DECADRON) PO SCH (05:05)
[2021-01-04] MEDS: inSUlin ASPART (NovoLOG) 1 UNIT/0.01 ML (CHARGE PER UNIT) SC SCH ×4 (05:08→23:12)
[2021-01-04 07:26] LABS: BASOPHILS % (AUTO) 0 % (0-10); EOSINOPHILS % (AUTO) 0 % (0-10); HEMATOCRIT 33 % (35-52); HEMOGLOBIN 10.6 g/dL (11.5-16.0); LYMPHOCYTES # (AUTO) 1.3 10^3/uL (1.0-4.0); LYMPHOCYTES % (AUTO) 20 % (12-44); MEAN CORPUSCULAR HEMOGLOBIN 30 pg (25-34); MEAN CORPUSCULAR HGB CONC 33 g/dL (32-36); MEAN CORPUSCULAR VOLUME 91 fL (80-99); MEAN PLATELET VOLUME 10.2 fL (9.0-12.2); MONOCYTES # (AUTO) 0.4 10^3/uL (0.0-1.0); MONOCYTES % (AUTO) 6 % (0-12); NEUTROPHILS # (AUTO) 4.7 10^3/uL (1.8-7.8); NEUTROPHILS % (AUTO) 72 % (42-75); PLATELET COUNT 136 10^3/uL (130-400); WHITE BLOOD COUNT 6.5 10^3/uL (4.3-11.0)
[2021-01-04] MEDS: RT-ALBUTEROL INHALER HFA (VENTOLIN HFA) 18 GM IH PRN ×2 (07:31→22:07)
[2021-01-04 07:39] LABS: ALBUMIN 3.2 GM/DL (3.2-4.5); POTASSIUM 3.8 MMOL/L (3.6-5.0)
[2021-01-04 07:40] LABS: CALCIUM 7.9 MG/DL (8.5-10.1)
[2021-01-04 07:42] LABS: TOTAL PROTEIN 5.8 GM/DL (6.4-8.2)
[2021-01-04 07:44] LABS: BILIRUBIN,TOTAL 0.5 MG/DL (0.1-1.0)
[2021-01-04 07:45] LABS: CREATININE SERUM 0.83 MG/DL (0.60-1.30)
[2021-01-04] MEDS: DOCUSATE SODIUM 100 MG (COLACE) CAP PO SCH ×2 (08:59→20:38)
[2021-01-04] MEDS: meTOprolol TARTRATE 25 MG (LOPRESSOR) TABLET PO SCH ×2 (08:59→20:37)
[2021-01-04] MEDS: AZITHROMYCIN 250 MG TAB (ZITHROMAX) PO SCH (08:59)
[2021-01-04] MEDS: PRAMIPEXOLE 0.5 MG TAB (MIRAPEX) PO SCH ×2 (08:59→20:37)
[2021-01-04] MEDS: ENOXAPARIN 40 MG/0.4 ML (LOVENOX) SYR SC SCH ×2 (08:59→20:38)
[2021-01-04] MEDS: QUEtiapine 100 MG (SEROquel) TAB IMMEDIATE RELEASE PO SCH (08:59)
[2021-01-04] MEDS: SENNOSIDES 8.6 MG (SENOKOT) TAB PO SCH ×2 (08:59→20:37)
--- NOTE | 2021-01-04 10:29 | Progress Note - Hospitalist ---
Subjective HPI/CC On Admission Date Seen by Provider: Jan 04, 2021 Time Seen by Provider: 10:19 Ilana Camara is a 60-year-old female with past medical history of anxiety, depression, COPD, alcohol abuse, who presented with shortness of breath. She has been short of breath for several days. She has also had a cough. She denies any fevers or chills. She denies any abdominal pain. She denies any nausea or vomiting. She has not had diarrhea. She denies chest pain. She did not get the Covid vaccine. She does not know of any sick contacts. She has been drinking heavily recently. Subjective/Events-last exam Pt escalating to needing BiPAP overnight. Now on Vapotherm as she was quite nausea. She reports feeling worse and very sick. She clinically appears sick as well. Focused Exam Lactate Level 01/01/21 14:23: Lactic Acid Level 3.89*H 01/01/21 16:22: Lactic Acid Level 3.56*H 01/01/21 22:40: Lactic Acid Level 1.32 Objective Exam Vital Signs Vital Signs Date Time Temp Pulse Resp B/P (MAP) Pulse Ox O2 Delivery O2 Flow Rate FiO2 01/04/21 13:00 70 122/68 (86) 90 Vapotherm 40.00 50.00 01/04/21 12:40 75 01/04/21 11:28 36.6 22 Capillary Refill : Less Than 3 Seconds General Appearance: Chronically ill, Mild Distress (ill appearing), Obese Respiratory: Rhonci, Other (tachypneic in the 30s, on Vapotherm) Neurologic/Psychiatric: Alert, Oriented x3 Results/Procedures Lab Laboratory Tests 01/04/21 07:10 Patient resulted labs reviewed. Imaging: Reviewed Imaging Report Assessment/Plan Assessment and Plan Assess & Plan/Chief Complaint Acute respiratory failure due to COVID-19 COPD Still on Vapotherm and tachypneic- transfer to the ICU Covid positive on admission 01/01, symptoms started a few days prior Chest x-ray consistent with Covid, bilateral infiltrates Ddimer mildly elevated, repeat essentially the same Prophylactic Lovenox Procalcitonin elevated but trending down Continue Rocephin and Azithromycin MAT protocol Continue Decadron Remdesivir given, consider DC-ing due to high oxygen requirement and convalescent plasma ordered, awaiting arrival CRP 3.5, consider Actemra if no signs of bacterial infection still tomorrow Acute alcohol intoxication Alcohol abuse Reports remote history of withdrawal Denies every day alcohol use at this time Monitor Anxiety Depression Continue home meds Morbid obesity hyperglycemia Clinically significant, no acute management needs DVT prophylaxis: Lovenox Lactic acidosis, resolved QUINN KENT MD Jan 04, 2021 10:29
--- NOTE | 2021-01-04 13:26 | Physical Therapy Progress Note ---
Therapy Progress Note Patient has been transferred to ICU, will need new PT orders due to higher level of care. MANNY SKINNER PT Jan 04, 2021 13:26
--- NOTE | 2021-01-04 14:18 | Diagnostic Imaging Report ---
INDICATION: Hypoxia and Covid. FINDINGS: The severe 5 lobed infiltrates have substantially progressed from the comparison of 01/01/2021. The heart is at least mildly enlarged. There is no obvious pleural fluid or pneumothorax. IMPRESSION: Severe and progressive 5 lobed infiltrates. The report was faxed to Infection Control by derik@2:17 PM. Dictated by: Dictated on workstation # [id number]
--- NOTE | 2021-01-04 14:22 | Tele-ICU Consult ---
History of Present Illness History of Present Illness Date Seen by Provider: Jan 04, 2021 Time Seen by Provider: 14:21 Date of Admission Allergies and Home Medications Allergies Coded Allergies: No Known Drug Allergies (Unverified , 01/01/21) Home Medications Alprazolam 0.5 Mg Tablet, 0.5 MG PO DAILY, (Reported) Hydrocodone/Acetaminophen 1 Each Tablet, 1 EACH PO BID, (Reported) Metoprolol Succinate 25 Mg Tab.er.24h, 25 MG PO BID, (Reported) Pramipexole Di-HCl 0.5 Mg Tablet, 0.5 MG PO QID, (Reported) Quetiapine Fumarate 50 Mg Tablet, 50 MG PO DAILY, (Reported) Quetiapine Fumarate 100 Mg Tablet, 100 MG PO HS, (Reported) Quetiapine Fumarate 400 Mg Tablet, 400 MG PO HS, (Reported) Quetiapine Fumarate 50 Mg Tablet, 50 MG PO UD, (Reported) AT NOON Past Medical/Social/Family Hx Patient Social History Tobacco Use?: No Smoking Status: Never a Smoker Smokeless Tobacco Frequency: Never a User Use of E-Cig and/or Vaping dev: No Substance use?: No Alcohol Use?: Yes Alcohol type: Hard Liquor Additional alcohol type: started drinking recently for pain management last 3 days being drinking heavly Pt stated abuse/neglect: Yes Immunizations Up To Date Influenza Vaccine Up-to-Date: No; Not Current Current Status status: No status: No Advance Directives: No Communicates: Verbally Primary Language: Gabonese Preferred Spoken Language: Gabonese Is interpretation needed?: No Implanted or Applied Medical D: None Review of Systems Constitutional: see HPI Sepsis Event Evaluation Height, Weight, BMI Height: '" Weight: lbs. oz. kg; 39.95 BMI Method: Exam Exam Patient acknowledged, consented, and participated in this virtual visit which was conducted using real time audio/video Vital Signs Date Time Temp Pulse Resp B/P (MAP) Pulse Ox O2 Delivery O2 Flow Rate FiO2 01/04/21 13:00 70 122/68 (86) 90 Vapotherm 40.00 50.00 01/04/21 12:40 Vapotherm 40.00 75 01/04/21 12:35 Vapotherm 40.00 50.00 01/04/21 11:28 36.6 74 22 110/63 (79) 99 Vapotherm 30.00 80.00 7/26/21 10:06 98 Vapotherm 40.00 75 01/04/21 08:00 Vapotherm 40.00 75 01/04/21 07:54 36.2 91 24 129/73 (91) 96 Vapotherm 30.00 80.00 01/04/21 07:34 92 01/04/21 07:31 100 Vapotherm 40.00 90 01/04/21 03:23 36.0 87 26 124/70 (88) 100 NIV Bilevel 45.00 01/04/21 02:11 71 25 100 50.00 01/04/21 01:00 84 01/03/21 23:56 36.4 77 26 131/72 (91) 100 NIV Bilevel 60.00 01/03/21 21:17 97 28 94 40.00 01/03/21 20:56 36.6 87 26 115/69 (84) 97 Vapotherm 30.00 80.00 01/03/21 20:00 Vapotherm 40.00 100 01/03/21 19:00 102 01/03/21 18:53 100 Vapotherm 40.00 100 01/03/21 18:00 97 Vapotherm 40.00 100.00 01/03/21 15:51 36.6 96 26 124/76 (92) 94 NIV Bilevel 35.00 01/03/21 15:00 104 32 96 35.00 01/03/21 14:23 98 Vapotherm 30.00 50 I & O 01/04/21 07:00 Intake Total 1130 ml Output Total 2450 ml Balance -1320 ml Height & Weight Height: '" Weight: lbs. oz. kg; 39.95 BMI Method: General Appearance: No Apparent Distress, Chronically ill, Mild Distress (ill appearing), Obese HEENT: PERRL/EOMI, Pharynx Normal Neck: Normal Inspection, Supple Respiratory: Rhonci, Other (tachypneic in the 30s, on Vapotherm) Cardiovascular: Regular Rate, Rhythm, No Edema, No Murmur Capillary Refill: Less Than 3 Seconds Extremity: Normal Inspection, Non Tender, No Pedal Edema Neurologic/Psychiatric: Alert, Oriented x3 Skin: Normal Color, Warm/Dry Lymphatic: No Adenopathy Results Lab Laboratory Tests 01/03/21 12:25 01/04/21 07:10 Assessment/Plan Assessment/Plan (Tele-ICU Physician , consultation) Available chart/ vitals / labs / Images reviewed H&P is from ER notes Patient's information available about PMH, Shx, Fhx allergy reviewed in EMR. ROS as per chart and RN report Patient admitted 01/01 - COVID PNA 01/04 - trnsfer to ICU on Vapotherm , bipap at night Now in ICU, hemodynamically stable Video assessment done using teleICU camera, rest of exam as per RN Discussed with RN. Consultants: A/P Acute hypoxic resp failure - vapother, most likely will benfit from BIPAP at night -prone position if able - conservative fluid strategy (aim for even or negative fluid balance - recheck cxr [id number]/COVID-19 infection- ( Dx on admission 01/01, symptoms started a few days prior -Remdesivir - follow LFT Convalescent plasma -Steroids IV - started -Hypercoagulable state , DDIMER om low side -> lovenox ppx dose , follow D dimer Suspected superimposed bact PNA -empiric abx started on Rocephin and Azithromyci Acute alcohol intoxication Alcohol abuse- Denies every day alcohol use at this time Lines : periph (Central Line Necessity Reviewed) Mulligan: OG: Nutrition: op Analgesia: Anxiety/ delirium xanax VTE Prophylaxis: [id number] Stress Ulcer Prophylaxis: po intake Glycemic Control: ISS Plans in collaboration with bedside consultants and IM MDs. Discussed with RN to reach out if any questions or concerns A total of 32 minutes of critical care time was devoted to this patient today, required to treat and/or prevent further deterioration of critical care condition ( as above ) . IGLESIA DIEZ MD Jan 04, 2021 14:22
[2021-01-04] MEDS: cefTRIAXone 1,000 MG/SWFI 10 ML IV PUSH IV SCH ×2 (14:44)
[2021-01-04] MEDS: REMDESIVIR INJ 100 MG in NS (IVPB) 230 ML IV SCH (14:48)
--- NOTE | 2021-01-04 15:31 | Occ Therapy Progress Note ---
Therapy Progress Note Pt. transferred to ICU due to change in medical status. Will need new OT orders to resume care. [id number] TIANA SHELL OT Jan 04, 2021 15:31
[2021-01-04] MEDS: NS IV 500 ML 500 ML IV SCH (16:47)
[2021-01-04] MEDS: QUEtiapine 200 MG (SEROquel) TAB IMMEDIATE RELEASE PO SCH (20:37)
[2021-01-05] VITALS (26 sets, daily range): BP systolic 105–132; BP diastolic 60–95
[2021-01-05] MEDS: RT-ALBUTEROL INHALER HFA (VENTOLIN HFA) 18 GM IH PRN (02:43)
[2021-01-05] MEDS: RT-ALBUTEROL INHALER HFA (VENTOLIN HFA) 18 GM IH SCH ×6 (02:44→22:45)
[2021-01-05 04:28] LABS: BASOPHILS % (AUTO) 0 % (0-10); EOSINOPHILS % (AUTO) 0 % (0-10); HEMATOCRIT 33 % (35-52); HEMOGLOBIN 10.5 g/dL (11.5-16.0); LYMPHOCYTES # (AUTO) 2.2 10^3/uL (1.0-4.0); LYMPHOCYTES % (AUTO) 32 % (12-44); MEAN CORPUSCULAR HEMOGLOBIN 29 pg (25-34); MEAN CORPUSCULAR HGB CONC 32 g/dL (32-36); MEAN CORPUSCULAR VOLUME 91 fL (80-99); MEAN PLATELET VOLUME 10.9 fL (9.0-12.2); MONOCYTES # (AUTO) 0.4 10^3/uL (0.0-1.0); MONOCYTES % (AUTO) 6 % (0-12); NEUTROPHILS # (AUTO) 4.2 10^3/uL (1.8-7.8); NEUTROPHILS % (AUTO) 61 % (42-75); PLATELET COUNT 115 10^3/uL (130-400); WHITE BLOOD COUNT 6.9 10^3/uL (4.3-11.0)
[2021-01-05 04:46] LABS: ALBUMIN 3.2 GM/DL (3.2-4.5); POTASSIUM 3.8 MMOL/L (3.6-5.0)
[2021-01-05 04:47] LABS: CALCIUM 8.1 MG/DL (8.5-10.1)
[2021-01-05 04:50] LABS: BILIRUBIN,TOTAL 0.5 MG/DL (0.1-1.0)
[2021-01-05 04:52] LABS: CREATININE SERUM 0.77 MG/DL (0.60-1.30)
[2021-01-05] MEDS: MAGNESIUM 1 GM/100 ML IVPB 100 ML IV SCH (06:02)
[2021-01-05] MEDS: POTASSIUM CL 10MEQ/50ML IVPB 50 ML IV SCH (06:02)
[2021-01-05] MEDS: KCL 20 MEQ TAB (K-DUR) PO SCH (06:03)
[2021-01-05] MEDS: inSUlin ASPART (NovoLOG) 1 UNIT/0.01 ML (CHARGE PER UNIT) SC SCH ×4 (06:03→20:42)
[2021-01-05] MEDS: dexAMETHasone 6 MG TAB (DECADRON) PO SCH (06:19)
[2021-01-05] MEDS: NS IV 500 ML 500 ML IV SCH ×2 (07:40→20:49)
--- NOTE | 2021-01-05 07:59 | Progress Note - Hospitalist ---
Subjective HPI/CC On Admission Date Seen by Provider: Jan 05, 2021 Time Seen by Provider: 07:48 Ilana Camara is a 60-year-old female with past medical history of anxiety, depression, COPD, alcohol abuse, who presented with shortness of breath. She has been short of breath for several days. She has also had a cough. She denies any fevers or chills. She denies any abdominal pain. She denies any nausea or vomiting. She has not had diarrhea. She denies chest pain. She did not get the Covid vaccine. She does not know of any sick contacts. She has been drinking heavily recently. Subjective/Events-last exam Pt reports not feeling well. Escalated back to BiPAP overnight. Satting 89% when I was in the room. We discussed the potential need for intubation given worsening status. She is agreeable if needed. Objective Exam Vital Signs Vital Signs Date Time Temp Pulse Resp B/P (MAP) Pulse Ox O2 Delivery O2 Flow Rate FiO2 01/05/21 07:30 NIV Bilevel 90.00 01/05/21 07:08 72 36 96 01/05/21 06:00 106/95 (99) 01/05/21 04:00 36.4 01/05/21 04:00 95 Capillary Refill : Less Than 3 Seconds General Appearance: Anxious, Chronically ill, Obese Respiratory: Decreased Breath Sounds (in bases), Rhonci Cardiovascular: Regular Rate, Rhythm, No Murmur Gastrointestinal: Normal Bowel Sounds, Soft Neurologic/Psychiatric: Alert, Oriented x3 Results/Procedures Lab Laboratory Tests 01/05/21 04:00 Patient resulted labs reviewed. Imaging: Reviewed Imaging Report Assessment/Plan Assessment and Plan Assess & Plan/Chief Complaint Acute respiratory failure due to COVID-19 COPD Now on BiPAP, satting 89% while I was in the room, very high risk for intubation Covid positive on admission 01/01, symptoms started a few days prior Chest x-ray consistent with Covid, bilateral infiltrates Ddimer mildly elevated, repeat essentially the same Continue ppx lovenox Procalcitonin elevated but trending down Continue Rocephin and Azithromycin MAT protocol Continue Decadron Will DC remdesivir due to high oxygen requirement and dose Actemra instead Cannot tolerating proning TeleICU consulted, discussed with them today, appreciate assistance Acute alcohol intoxication Alcohol abuse Reports remote history of withdrawal Denies every day alcohol use at this time No evidence of withdrawal Anxiety Depression Continue home meds Morbid obesity hyperglycemia Clinically significant, no acute management needs DVT prophylaxis: Lovenox Lactic acidosis, resolved QUINN KENT MD Jan 05, 2021 07:59
--- NOTE | 2021-01-05 08:26 | Physical Therapy Progress Note ---
Therapy Progress Note Patient transferred to ICU. PT will require new orders due to transfer. MAGDI LEIGH PT Jan 05, 2021 08:26
[2021-01-05] MEDS ORDERED: TOCILIZUMAB INJECTION (NON-FOR 800 MG in NS (IVPB) 60 ML IV ONE (08:30)
[2021-01-05] MEDS: DOCUSATE SODIUM 100 MG (COLACE) CAP PO SCH ×2 (09:00→20:15)
[2021-01-05] MEDS: SENNOSIDES 8.6 MG (SENOKOT) TAB PO SCH ×2 (09:00→20:15)
[2021-01-05] MEDS: ENOXAPARIN 40 MG/0.4 ML (LOVENOX) SYR SC SCH ×2 (09:09→20:15)
[2021-01-05] MEDS: PRAMIPEXOLE 0.5 MG TAB (MIRAPEX) PO SCH ×2 (09:09→20:15)
[2021-01-05] MEDS: QUEtiapine 100 MG (SEROquel) TAB IMMEDIATE RELEASE PO SCH (09:09)
[2021-01-05] MEDS: meTOprolol TARTRATE 25 MG (LOPRESSOR) TABLET PO SCH ×2 (09:09→20:16)
[2021-01-05] MEDS: AZITHROMYCIN 250 MG TAB (ZITHROMAX) PO SCH (09:09)
--- NOTE | 2021-01-05 11:42 | Diagnostic Imaging Report ---
Portable erect AP chest at 1119 INDICATION: PICC line insertion The heart is enlarged but stable in size when compared to the prior exam of 01/04/2021. The diffuse alveolar/interstitial pulmonary infiltrates seen previously are again evident and no different. The mediastinum is not widened. The osseous structures are intact. In the interval since the prior exam a right-sided PICC line has been inserted. The tip of line overlies the cavoatrial junction. There is no sign of a pneumothorax. There is also a radiopaque oval density overlying the left upper quadrant. This was not present on the prior exam. This is probably extraneous to the patient. IMPRESSION: 1. There has been interval insertion of a right-sided PICC line without apparent complication. The tip of line overlies the cavoatrial junction. 2. The overall appearance of the chest is otherwise stable. Dictated by: Dictated on workstation # [id number]
--- NOTE | 2021-01-05 12:45 | Tele-ICU Progress Note ---
Subjective Date Seen by a Provider: Jan 05, 2021 Time Seen by a Provider: 12:45 Sepsis Event Evaluation Height, Weight, BMI Height: '" Weight: lbs. oz. kg; 39.95 BMI Method: Exam Exam Patient acknowledged, consented, and participated in this virtual visit which was conducted using real time audio/video Vital Signs Date Time Temp Pulse Resp B/P (MAP) Pulse Ox O2 Delivery O2 Flow Rate FiO2 01/05/21 12:00 61 112/62 (79) 94 NIV Bilevel 100.00 01/05/21 11:00 65 115/63 (80) 92 NIV Bilevel 100.00 01/05/21 10:40 68 40 98 95.00 01/05/21 10:00 66 108/60 (76) 94 NIV Bilevel 100.00 01/05/21 09:33 NIV Bilevel 100.00 01/05/21 09:00 73 131/68 (89) 100 NIV Bilevel 90.00 01/05/21 08:09 38.0 01/05/21 08:00 76 132/72 (92) 96 NIV Bilevel 90.00 01/05/21 08:00 NIV Bilevel 91 01/05/21 07:30 NIV Bilevel 90.00 01/05/21 07:08 72 36 96 100.00 01/05/21 07:00 73 126/66 (86) 97 NIV Bilevel 75.00 01/05/21 07:00 72 01/05/21 06:00 80 106/95 (99) 94 NIV Bilevel 75.00 01/05/21 05:11 75 125/71 (89) 87 NIV Bilevel 75.00 01/05/21 04:02 69 119/63 (81) 88 NIV Bilevel 75.00 01/05/21 04:00 36.4 01/05/21 04:00 NIV Bilevel 95 01/05/21 02:44 70 23 94 90.00 01/05/21 01:00 66 96 NIV Bilevel 75.00 01/05/21 01:00 66 01/05/21 00:01 82 120/68 (85) NIV Bilevel 75.00 01/05/21 00:00 NIV Bilevel 90 01/05/21 00:00 36.0 01/04/21 23:36 NIV Bilevel 75.00 01/04/21 23:27 72 114/61 (78) 81 NIV Bilevel 55.00 01/04/21 22:40 NIV Bilevel 55.00 01/04/21 22:29 72 112/64 (80) 86 Vapotherm 40.00 50.00 01/04/21 22:07 98 Vapotherm 40.00 95 01/04/21 20:28 36.2 68 36.2 36.0 01/04/21 20:27 90 123/61 (81) 88 Vapotherm 40.00 50.00 01/04/21 20:00 NIV Bilevel 55 01/04/21 19:31 36.2 01/04/21 19:14 36.2 68 36.1 36.2 01/04/21 19:00 84 01/04/21 18:50 89 Vapotherm 40.00 60 01/04/21 18:00 68 99 Vapotherm 40.00 50.00 01/04/21 17:00 71 8 117/65 (82) 94 Vapotherm 40.00 50.00 01/04/21 16:53 36.2 72 36.1 01/04/21 16:50 Vapotherm 40.00 60 01/04/21 16:00 70 121/68 (85) 85 Vapotherm 40.00 50.00 01/04/21 16:00 36.8 01/04/21 15:00 79 123/71 (88) 93 Vapotherm 40.00 50.00 01/04/21 14:54 91 Vapotherm 40.00 60 01/04/21 14:00 67 118/67 (84) 99 Vapotherm 40.00 50.00 01/04/21 13:00 70 122/68 (86) 90 Vapotherm 40.00 50.00 01/04/21 13:00 70 118/65 (82) 90 Vapotherm 40.00 50.00 01/04/21 13:00 70 I & O 01/05/21 07:00 Intake Total 1850 ml Output Total 3150 ml Balance -1300 ml Height & Weight Height: '" Weight: lbs. oz. kg; 39.95 BMI Method: General Appearance: Anxious, Chronically ill, Obese HEENT: PERRL/EOMI, Pharynx Normal Neck: Normal Inspection, Supple Respiratory: Decreased Breath Sounds (in bases), Rhonci Cardiovascular: Regular Rate, Rhythm, No Murmur Capillary Refill: Less Than 3 Seconds Extremity: Normal Inspection, Non Tender, No Pedal Edema Neurologic/Psychiatric: Alert, Oriented x3 Skin: Normal Color, Warm/Dry Lymphatic: No Adenopathy Results Lab Laboratory Tests 01/04/21 07:10 01/05/21 04:00 Assessment/Plan Assessment/Plan (Tele-ICU Physician , Progress Note ) BEDSIDE RN IS NOT AVAILABLE TO DISCUSS PATIENT, A/P DONE BASED ON DATA ABAILABLE IN EMR AND VIDEO ASSESSMENT BY E-CAMERA. FINAL PLAN /DECISIONS ARE BY ROUNDING BEDSIDE PHYSICIANS Available chart/ vitals / labs / Images reviewed Video assessment done using teleICU camera, Events overnight : biapap Afebrile I/O = danika 1400 Drips: Pressors: , hemodynamically stable EXAM PER RN Consultants: Hospital course: 01/01 - COVID PNA 01/04 - trnsfer to ICU on Vapotherm , bipap at night 01/05 BIPAP 18/10 100% rr 40 - tv 550 - TV 23 L Now in ICU, hemodynamically stable Video assessment done using teleICU camera Consultants: A/P Acute hypoxic resp failure - vapotherm -> BIPAP 18/10 100% rr 40 - tv 550 - TV 23 L , CXR is worsening - HIGH RESK FOR INTUBATION -prone position if able - can not tolerate for long - conservative fluid strategy (aim for even or negative fluid balance [id number]/COVID-19 infection- ( Dx on admission 01/01, symptoms started a few days prior -Remdesivir - follow LFT Convalescent plasma -Steroids IV - started -Hypercoagulable state , DDIMER om low side ( 1.8 on 01/05 ) -> lovenox ppx dose , follow D dimer Suspected superimposed bact PNA -empiric abx started on Rocephin and Azithromyci Acute alcohol intoxication Alcohol abuse- Denies every day alcohol use at this time Lines : periph (Central Line Necessity Reviewed) Mulligan: OG: Nutrition: op Analgesia: Anxiety/ delirium xanax VTE Prophylaxis: [id number] Stress Ulcer Prophylaxis: po intake? Glycemic Control: ISS Plans in collaboration with bedside consultants and IM MDs. RN to reach out if any questions or concerns Discussed wiyh Dr Itz A total of 32 minutes of critical care time was devoted to this patient today, required to treat and/or prevent further deterioration of critical care condition ( as above ) . IGLESIA DIEZ MD Jan 05, 2021 12:45
[2021-01-05] MEDS: cefTRIAXone 1,000 MG/SWFI 10 ML IV PUSH IV SCH ×2 (13:56)
[2021-01-05] MEDS: QUEtiapine 200 MG (SEROquel) TAB IMMEDIATE RELEASE PO SCH (20:14)
[2021-01-05] MEDS: ONDANSETRON 4 MG/2 ML (SDV) Z0FRAN IV PRN (20:42)
[2021-01-06] VITALS (28 sets, daily range): BP systolic 99–137; BP diastolic 49–95
[2021-01-06] MEDS: RT-ALBUTEROL INHALER HFA (VENTOLIN HFA) 18 GM IH SCH ×6 (02:31→22:02)
[2021-01-06 03:22] LABS: BASOPHILS % (AUTO) 0 % (0-10); EOSINOPHILS % (AUTO) 0 % (0-10); HEMATOCRIT 31 % (35-52); HEMOGLOBIN 9.8 g/dL (11.5-16.0); LYMPHOCYTES # (AUTO) 1.7 10^3/uL (1.0-4.0); LYMPHOCYTES % (AUTO) 42 % (12-44); MEAN CORPUSCULAR HEMOGLOBIN 29 pg (25-34); MEAN CORPUSCULAR HGB CONC 32 g/dL (32-36); MEAN CORPUSCULAR VOLUME 91 fL (80-99); MEAN PLATELET VOLUME 10.3 fL (9.0-12.2); MONOCYTES # (AUTO) 0.3 10^3/uL (0.0-1.0); MONOCYTES % (AUTO) 7 % (0-12); NEUTROPHILS # (AUTO) 2.1 10^3/uL (1.8-7.8); NEUTROPHILS % (AUTO) 50 % (42-75); PLATELET COUNT 130 10^3/uL (130-400); WHITE BLOOD COUNT 4.1 10^3/uL (4.3-11.0)
[2021-01-06 03:35] LABS: POTASSIUM 3.3 MMOL/L (3.6-5.0)
[2021-01-06 03:36] LABS: CALCIUM 8.3 MG/DL (8.5-10.1)
[2021-01-06 03:37] LABS: TOTAL PROTEIN 5.6 GM/DL (6.4-8.2)
[2021-01-06 03:39] LABS: BILIRUBIN,TOTAL 0.5 MG/DL (0.1-1.0)
[2021-01-06 03:40] LABS: CREATININE SERUM 0.67 MG/DL (0.60-1.30)
[2021-01-06] MEDS: KCL 20 MEQ TAB (K-DUR) PO SCH (05:14)
[2021-01-06] MEDS: inSUlin ASPART (NovoLOG) 1 UNIT/0.01 ML (CHARGE PER UNIT) SC SCH ×4 (05:14→21:15)
[2021-01-06] MEDS: MAGNESIUM 1 GM/100 ML IVPB 100 ML IV SCH ×2 (05:14→18:42)
[2021-01-06] MEDS: SENNOSIDES 8.6 MG (SENOKOT) TAB PO SCH ×2 (05:15→19:46)
[2021-01-06] MEDS: DOCUSATE SODIUM 100 MG (COLACE) CAP PO SCH ×2 (05:15→19:46)
[2021-01-06] MEDS: POTASSIUM CL 10MEQ/50ML IVPB 50 ML IV SCH (05:46)
[2021-01-06] MEDS: dexAMETHasone 6 MG TAB (DECADRON) PO SCH (05:47)
--- NOTE | 2021-01-06 07:57 | Physical Therapy Progress Note ---
Therapy Progress Note PT will require new orders due to transfer. MAGDI LEIGH PT Jan 06, 2021 07:57
--- NOTE | 2021-01-06 08:17 | Progress Note - Hospitalist ---
Subjective HPI/CC On Admission Date Seen by Provider: Jan 06, 2021 Time Seen by Provider: 08:15 Ilana Camara is a 60-year-old female with past medical history of anxiety, depression, COPD, alcohol abuse, who presented with shortness of breath. She has been short of breath for several days. She has also had a cough. She denies any fevers or chills. She denies any abdominal pain. She denies any nausea or vomiting. She has not had diarrhea. She denies chest pain. She did not get the Covid vaccine. She does not know of any sick contacts. She has been drinking heavily recently. Subjective/Events-last exam Pt reports doing ok today. About the same. Up in chair on BiPAP with 100% Fi02. No new complaints. Objective Exam Vital Signs Vital Signs Date Time Temp Pulse Resp B/P (MAP) Pulse Ox O2 Delivery O2 Flow Rate FiO2 01/07/21 13:43 100 Vapotherm 30.00 85 01/07/21 11:39 35.2 01/07/21 11:00 72 91/57 (68) 01/07/21 08:31 19 Capillary Refill : Less Than 3 Seconds General Appearance: No Apparent Distress, Chronically ill, Obese Respiratory: No Accessory Muscle Use, No Respiratory Distress, Decreased Breath Sounds Cardiovascular: Regular Rate, Rhythm, No Murmur Gastrointestinal: Normal Bowel Sounds, Non Tender, Soft Neurologic/Psychiatric: Alert, Oriented x3 Results/Procedures Lab Laboratory Tests 01/07/21 02:35 Patient resulted labs reviewed. Imaging: Reviewed Imaging Report Assessment/Plan Assessment and Plan Assess & Plan/Chief Complaint Acute respiratory failure due to COVID-19 COPD Still on BiPAP, encouraged continued OOB, very high risk for intubation still Covid positive on admission 01/01, symptoms started a few days prior Chest x-ray consistent with Covid, bilateral infiltrates Ddimer mildly elevated, repeat essentially the same Continue ppx lovenox Procalcitonin elevated but trending down Continue abx MAT protocol Continue Decadron received Actemra yesterday Cannot tolerating proning TeleICU consulted, appreciate assistance Acute alcohol intoxication Alcohol abuse Reports remote history of withdrawal Denies every day alcohol use at this time No evidence of withdrawal Anxiety Depression Continue home meds Morbid obesity hyperglycemia Clinically significant, no acute management needs DVT prophylaxis: Lovenox Lactic acidosis, resolved QUINN KENT MD Jan 06, 2021 08:17
[2021-01-06] MEDS: meTOprolol TARTRATE 25 MG (LOPRESSOR) TABLET PO SCH ×2 (09:04→19:49)
[2021-01-06] MEDS: PRAMIPEXOLE 0.5 MG TAB (MIRAPEX) PO SCH ×2 (09:04→19:48)
[2021-01-06] MEDS: QUEtiapine 100 MG (SEROquel) TAB IMMEDIATE RELEASE PO SCH (09:04)
[2021-01-06] MEDS: ENOXAPARIN 40 MG/0.4 ML (LOVENOX) SYR SC SCH (09:04)
[2021-01-06] MEDS: NS IV 500 ML 500 ML IV SCH (10:09)
--- NOTE | 2021-01-06 10:52 | Tele-ICU Progress Note ---
Subjective Date Seen by a Provider: Jan 06, 2021 Time Seen by a Provider: 10:52 Sepsis Event Evaluation Height, Weight, BMI Height: '" Weight: lbs. oz. kg; 39.95 BMI Method: Exam Exam Patient acknowledged, consented, and participated in this virtual visit which was conducted using real time audio/video Vital Signs Date Time Temp Pulse Resp B/P (MAP) Pulse Ox O2 Delivery O2 Flow Rate FiO2 01/06/21 10:00 51 101/65 (77) 97 NIV Bilevel 90.00 01/06/21 09:04 NIV Bilevel 90.00 01/06/21 09:00 54 109/73 (85) 100 NIV Bilevel 90.00 01/06/21 08:00 54 109/64 (79) 100 NIV Bilevel 90.00 01/06/21 07:45 36.1 01/06/21 07:00 57 113/95 (101) 93 NIV Bilevel 90.00 01/06/21 06:50 64 27 93 100.00 01/06/21 06:22 51 01/06/21 06:00 50 116/72 (87) 99 NIV Bilevel 90.00 01/06/21 05:00 55 127/71 (98) 89 NIV Bilevel 90.00 01/06/21 04:00 NIV Bilevel 95 01/06/21 04:00 55 117/70 (80) 90 NIV Bilevel 85.00 01/06/21 04:00 36.1 NIV Bilevel 90.00 01/06/21 03:00 53 115/69 (88) 90 NIV Bilevel 85.00 01/06/21 02:32 55 27 94 85.00 01/06/21 02:00 54 106/68 (87) 91 NIV Bilevel 85.00 01/06/21 01:00 57 01/06/21 01:00 57 110/60 (76) 89 NIV Bilevel 85.00 01/06/21 00:00 55 115/70 (89) 89 NIV Bilevel 90.00 01/06/21 00:00 36.5 NIV Bilevel 85.00 01/06/21 00:00 NIV Bilevel 85 01/05/21 23:00 67 109/63 (76) 100 NIV Bilevel 90.00 01/05/21 22:45 56 20 100 90.00 01/05/21 22:00 53 105/61 (78) 94 NIV Bilevel 90.00 01/05/21 21:00 68 113/72 (94) 98 NIV Bilevel 90.00 01/05/21 20:50 36.2 01/05/21 20:00 NIV Bilevel 95 01/05/21 20:00 58 123/66 (79) 98 NIV Bilevel 90.00 01/05/21 19:00 59 01/05/21 19:00 59 113/63 (80) 92 NIV Bilevel 90.00 01/05/21 18:35 NIV Bilevel 90.00 01/05/21 18:34 56 20 100 100.00 01/05/21 18:00 80 122/70 (87) 89 NIV Bilevel 100.00 01/05/21 17:00 56 111/65 (80) 91 NIV Bilevel 100.00 01/05/21 16:00 35.5 01/05/21 16:00 NIV Bilevel 92 01/05/21 16:00 60 113/70 (84) 96 NIV Bilevel 100.00 01/05/21 15:00 62 108/63 (78) 91 NIV Bilevel 100.00 01/05/21 14:57 60 24 93 100.00 01/05/21 14:00 63 116/70 (85) 98 NIV Bilevel 100.00 01/05/21 13:00 60 112/70 (84) 88 NIV Bilevel 100.00 01/05/21 13:00 60 01/05/21 12:55 36.3 01/05/21 12:00 61 112/62 (79) 94 NIV Bilevel 100.00 01/05/21 12:00 NIV Bilevel 94 01/05/21 11:00 65 115/63 (80) 92 NIV Bilevel 100.00 I & O 01/06/21 06:59 Intake Total 1250 ml Output Total 1425 ml Balance -175 ml Height & Weight Height: '" Weight: lbs. oz. kg; 39.95 BMI Method: General Appearance: No Apparent Distress, Chronically ill, Obese HEENT: PERRL/EOMI, Pharynx Normal Neck: Normal Inspection, Supple Respiratory: No Accessory Muscle Use, No Respiratory Distress, Decreased Breath Sounds Cardiovascular: Regular Rate, Rhythm, No Murmur Capillary Refill: Less Than 3 Seconds Extremity: Normal Inspection, Non Tender, No Pedal Edema Neurologic/Psychiatric: Alert, Oriented x3 Skin: Normal Color, Warm/Dry Lymphatic: No Adenopathy Results Lab Laboratory Tests 01/05/21 04:00 01/06/21 03:15 Assessment/Plan Assessment/Plan (Tele-ICU Physician , Progress Note ) Available chart/ vitals / labs / Images reviewed Video assessment done using teleICU camera, rest of exam as per RN Discussed with RN Events overnight : was sitting in a chair Afebrile I/O = even Drips: Pressors: , hemodynamically stable EXAM PER RN Consultants: Hospital course: 01/01 - COVID PNA 01/04 - trnsfer to ICU on Vapotherm , bipap at night 01/05 BIPAP 18/10 100% rr 40 - tv 550 - TV 23 L 01/06 - RR ? to 20s on biapp 90% A/P Acute hypoxic resp failure - BIPAP 18/ 10 - 90 % , RR ? to 20s - will try vapotherm to get some nutritions -BIAPAP at night ( even if tolerates Vapotherm -prone position if able - conservative fluid strategy (aim for even or negative fluid balance - CR stable , monitor id she can get PO TYDI-Caajnqwpsbl-3/COVID-19 infection- ( Dx on admission 01/01, symptoms started a few days prior -Remdesivir - follow LFT Convalescent plasma -Steroids IV - started -Hypercoagulable state , DDIMER on low side 01/05-> lovenox ppx dose , follow D dimer Suspected superimposed bact PNA -empiric abx started on Rocephin and Azithromyci Acute alcohol intoxication - Alcohol abuse- Denies every day alcohol use at this time Lines : periph (Central Line Necessity Reviewed) Mulligan: + OG: Nutrition: PO to try Analgesia: Anxiety/ delirium xanax VTE Prophylaxis: [id number] Stress Ulcer Prophylaxis: po intake Glycemic Control: ISS Plans in collaboration with bedside consultants and IM MDs. Discussed with RN to reach out if any questions or concerns A total of 32 minutes of critical care time was devoted to this patient today, required to treat and/or prevent further deterioration of critical care condition ( as above ) . IGLESIA DIEZ MD Jan 06, 2021 10:52
[2021-01-06] MEDS: QUEtiapine 200 MG (SEROquel) TAB IMMEDIATE RELEASE PO SCH (19:48)
[2021-01-06] MEDS: APIXABAN 5 MG (ELIQUIS) TABLET PO SCH (19:49)
--- NOTE | 2021-01-06 20:45 | Consultation-Cardiology ---
HPI-Cardiology Cardiology Consultation: Date of Consultation 01/06/21 Time Seen by a Provider: 20:20 Date of Admission Attending Physician Shannon Juan MD Admitting Physician No,Local Physician Consulting Physician ALLEN VILLALOBOS MD, MA, FACP, FACC, FSCAI, CCDS HPI: Chief Complaint: Reason for consultation: Wide-complex tachycardia HPI 60 yo woman admitted to the Hospitalist service on 01/01/21 with increasing angelo rtness of breath, COPD, COVID-positive status, and probable COVID pneumonia, who exhibited brief runs of irreg tachycardia today one of which showed wide complexes. Pt was asymptomatic. She denies cp or syncope. She has a chronic h/o brief, intermittent palpitations. She states she was diagnosed with PAF in [place] many years ago but has been noncompliant with therapy. She does not report swelling Review of Systems-Cardiology Review of Systems Constitutional: malaise, tiredness; No weight loss, No weight gain Eyes: No vision change Ears/Nose/Throat: No ear discharge, No nasal drainage, No recent hearing loss Respiratory: As described under HPI Gastrointestinal: No diarrhea, No nausea, No vomiting Genitourinary: No dysuria, No hematuria, No urine frequency changes Musculoskeletal: No back pain, No joint pain Skin: No rash, No ulcerations Psychiatric/Neurological: No seizure, No focal weakness, No syncope Hematologic: No bleeding abnormalities DWS-Zjoqzl-Ovhmkd Hx Patient Social History Smoking Status: Never a Smoker Have you traveled recently?: No Alcohol Use?: Yes Pt feels they are or have been: Yes Past Medical History PMH As described under Assessment. Family Medical History Family Medical History: She does not report fam h/o early CAD or SCD Allergies and Home Medications Allergies Coded Allergies: No Known Drug Allergies (Unverified , 01/01/21) Home Medications Alprazolam 0.5 Mg Tablet, 0.5 MG PO DAILY, (Reported) Last Action: New Order Hydrocodone/Acetaminophen 1 Each Tablet, 1 EACH PO BID, (Reported) Last Action: New Order Metoprolol Succinate 25 Mg Tab.er.24h, 25 MG PO BID, (Reported) Last Action: New Order Pramipexole Di-HCl 0.5 Mg Tablet, 0.5 MG PO QID, (Reported) Last Action: New Order Quetiapine Fumarate 50 Mg Tablet, 50 MG PO DAILY, (Reported) Last Action: New Order Quetiapine Fumarate 100 Mg Tablet, 100 MG PO HS, (Reported) Last Action: New Order Quetiapine Fumarate 400 Mg Tablet, 400 MG PO HS, (Reported) Last Action: New Order Quetiapine Fumarate 50 Mg Tablet, 50 MG PO UD, (Reported) AT NOON Last Action: New Order Patient Home Medication List Home Medication List Reviewed: Yes Physical Exam-Cardiology Physical Exam Vital Signs/I&O 01/06/21 01/06/21 01/06/21 01/06/21 09:00 09:04 10:00 10:50 Pulse 54 51 62 Resp 26 B/P (MAP) 109/73 (85) 101/65 (77) Pulse Ox 100 97 97 O2 Delivery NIV Bilevel NIV Bilevel NIV Bilevel O2 Flow Rate 90.00 90.00 90.00 90.00 01/06/21 01/06/21 01/06/21 01/06/21 10:58 11:00 12:00 12:00 Pulse 56 52 B/P (MAP) 117/75 (89) 124/74 (91) Pulse Ox 97 99 O2 Delivery NIV Bilevel NIV Bilevel NIV Bilevel NIV Bilevel O2 Flow Rate 80.00 80.00 80.00 FiO2 90 01/06/21 01/06/21 01/06/21 01/06/21 12:00 13:00 13:02 13:29 Temp 35.7 Pulse 54 55 B/P (MAP) 109/64 (79) Pulse Ox 93 98 O2 Delivery NIV Bilevel Vapotherm O2 Flow Rate 80.00 35.00 FiO2 95 01/06/21 01/06/21 01/06/21 01/06/21 13:45 14:00 15:00 16:00 Pulse 66 66 B/P (MAP) 122/78 (93) 100/51 (67) Pulse Ox 94 97 O2 Delivery Vapotherm Vapotherm Vapotherm NIV Bilevel O2 Flow Rate 35.00 35.00 35.00 95.00 95.00 95.00 FiO2 90 01/06/21 01/06/21 01/06/21 01/06/21 16:00 17:00 18:00 18:30 Pulse 73 55 59 57 Resp 27 B/P (MAP) 117/70 (86) 108/56 (73) 106/73 (84) Pulse Ox 84 100 94 99 O2 Delivery NIV Bilevel NIV Bilevel NIV Bilevel O2 Flow Rate 80.00 80.00 80.00 80.00 01/06/21 19:40 Temp 35.8 01/06/21 00:00 Intake Total 900 ml Output Total 600 ml Balance 300 ml Capillary Refill : Less Than 3 Seconds Constitutional: AAO x 3, well-developed, well-nourished HEENT: EOMI, hearing is well preserved; No xanthelasmas are seen Neck: carotid pulses are 2 + bilaterally, with good upstrokes Respiratory: No accessory muscle use Cardiovascular: regular rate-rhythm, systolic murmur (soft HORACE at card base) Gastrointestinal: No tender; soft; No guarding; audible bowel sounds Extremities: No clubbing, No cyanosis, No significant edema Neurologic/Psychiatric: oriented x 3, other (moves all limbs equally) Skin: No rash on exposed areas, No ulcerations on exposed areas Data Review Labs Laboratory Tests 01/06/21 03:15: White Blood Count 4.1L, Red Blood Count 3.38L, Hemoglobin 9.8L, Hematocrit 31L, Mean Corpuscular Volume 91, Mean Corpuscular Hemoglobin 29, Mean Corpuscular Hemoglobin Concent 32, Red Cell Distribution Width 14.3, Platelet Count 130, Mean Platelet Volume 10.3, Immature Granulocyte % (Auto) 2, Neutrophils (%) (Auto) 50, Lymphocytes (%) (Auto) 42, Monocytes (%) (Auto) 7, Eosinophils (%) (Auto) 0, Basophils (%) (Auto) 0, Neutrophils # (Auto) 2.1, Lymphocytes # (Auto) 1.7, Monocytes # (Auto) 0.3, Eosinophils # (Auto) 0.0, Basophils # (Auto) 0.0, Immature Granulocyte # (Auto) 0.1, Sodium Level 142, Potassium Level 3.3L, Chloride Level 99, Carbon Dioxide Level 29, Anion Gap 14, Blood Urea Nitrogen 16, Creatinine 0.67, Estimat Glomerular Filtration Rate 89, BUN/Creatinine Ratio 24, Glucose Level 105, Calcium Level 8.3L, Corrected Calcium 9.1, Total Bilirubin 0.5, Aspartate Amino Transf (AST/SGOT) 36H, Alanine Aminotransferase (ALT/SGPT) 26, Alkaline Phosphatase 121, Total Protein 5.6L, Albumin 3.0L 01/06/21 11:12: Glucometer 138H 01/06/21 16:24: Glucometer 120H Laboratory Tests 01/05/21 04:00 01/06/21 03:15 A/P-Cardiology Assessment/Admission Diagnosis PAF, diagnosed several years ago, per patient report - brief runs of irreg rhythm, both narrow and wide-complex, appear to be brief runs of PAF, wide-runs likely representing aberrancy Ac resp failure due to COVID-19 pneumonia superimposed on probable COPD and probable obesity-hypoventilation syndrome Obesity with BMI 40 Electrolyte abnormalities Discussion and Recomendations * Correct electrolyte abnormalities * Beta-tahir for vent rate control * Eliquis for stroke prophylaxis. D/c Lovenox after starting Eliquis * Advised compliance with meds * Outpt f/u advised ALLEN VILLALOBOS MD FACP FAC CCDS Jan 06, 2021 20:45
[2021-01-06] MEDS: ALPRAZolam 0.5 MG (XANAX) TAB PO PRN (23:33)
[2021-01-07] VITALS (22 sets, daily range): BP systolic 91–155; BP diastolic 48–115
[2021-01-07] MEDS: RT-ALBUTEROL INHALER HFA (VENTOLIN HFA) 18 GM IH SCH ×7 (01:55→21:44)
[2021-01-07 02:43] LABS: BASOPHILS % (AUTO) 0 % (0-10); EOSINOPHILS % (AUTO) 0 % (0-10); HEMATOCRIT 31 % (35-52); HEMOGLOBIN 10.1 g/dL (11.5-16.0); LYMPHOCYTES # (AUTO) 1.7 10^3/uL (1.0-4.0); LYMPHOCYTES % (AUTO) 39 % (12-44); MEAN CORPUSCULAR HEMOGLOBIN 29 pg (25-34); MEAN CORPUSCULAR HGB CONC 33 g/dL (32-36); MEAN CORPUSCULAR VOLUME 90 fL (80-99); MEAN PLATELET VOLUME 10.3 fL (9.0-12.2); MONOCYTES # (AUTO) 0.3 10^3/uL (0.0-1.0); MONOCYTES % (AUTO) 7 % (0-12); NEUTROPHILS # (AUTO) 2.3 10^3/uL (1.8-7.8); NEUTROPHILS % (AUTO) 53 % (42-75); PLATELET COUNT 179 10^3/uL (130-400); WHITE BLOOD COUNT 4.4 10^3/uL (4.3-11.0)
[2021-01-07 02:51] LABS: ALBUMIN 3.1 GM/DL (3.2-4.5); POTASSIUM 3.5 MMOL/L (3.6-5.0)
[2021-01-07 02:53] LABS: CALCIUM 8.3 MG/DL (8.5-10.1)
[2021-01-07 02:54] LABS: TOTAL PROTEIN 5.6 GM/DL (6.4-8.2)
[2021-01-07 02:56] LABS: BILIRUBIN,TOTAL 0.5 MG/DL (0.1-1.0)
[2021-01-07 02:57] LABS: CREATININE SERUM 0.74 MG/DL (0.60-1.30)
[2021-01-07] MEDS: POTASSIUM CL 10MEQ/50ML IVPB 50 ML IV SCH (04:55)
[2021-01-07] MEDS: KCL 20 MEQ TAB (K-DUR) PO SCH (04:55)
[2021-01-07] MEDS: inSUlin ASPART (NovoLOG) 1 UNIT/0.01 ML (CHARGE PER UNIT) SC SCH ×4 (04:55→21:27)
[2021-01-07] MEDS: MAGNESIUM 1 GM/100 ML IVPB 100 ML IV SCH (04:56)
[2021-01-07] MEDS: dexAMETHasone 6 MG TAB (DECADRON) PO SCH (04:56)
--- NOTE | 2021-01-07 07:44 | Diagnostic Imaging Report ---
INDICATION: Hypoxia. COMPARISON: 01/05/2021 FINDINGS: There is diffuse bilateral airspace disease. There is cardiomegaly. Underlying venous congestion cannot be excluded. There is no pleural effusion or pneumothorax. Mediastinum is unremarkable. PICC line has its tip in the superior vena cava IMPRESSION: 1. Diffuse bilateral airspace disease. 2. Cardiomegaly. 3. Some underlying central pulmonary venous congestion cannot be excluded Dictated by: Dictated on workstation # [id number]
--- NOTE | 2021-01-07 07:59 | Physical Therapy Progress Note ---
Therapy Progress Note Patient currently on BiPap and is up with nursing staff SBA to independent. PT will require new orders due to transfer. MAGDI LEIGH PT Jan 07, 2021 07:59
--- NOTE | 2021-01-07 08:28 | Tele-ICU Progress Note ---
Subjective Date Seen by a Provider: Jan 07, 2021 Time Seen by a Provider: 08:27 Sepsis Event Evaluation Height, Weight, BMI Height: '" Weight: lbs. oz. kg; 39.95 BMI Method: Exam Exam Patient acknowledged, consented, and participated in this virtual visit which was conducted using real time audio/video Vital Signs Date Time Temp Pulse Resp B/P (MAP) Pulse Ox O2 Delivery O2 Flow Rate FiO2 01/07/21 08:00 60 128/68 (88) 90 NIV Bilevel 70.00 01/07/21 07:54 35.6 01/07/21 07:00 57 118/65 (82) 93 NIV Bilevel 70.00 01/07/21 07:00 60 01/07/21 06:45 NIV Bilevel 70.00 01/07/21 06:35 Vapotherm 40.00 100.00 01/07/21 06:00 52 129/73 (91) 97 NIV Bilevel 70.00 01/07/21 05:00 57 123/71 (88) 91 NIV Bilevel 70.00 01/07/21 04:00 NIV Bilevel 70 01/07/21 04:00 63 130/67 (88) 88 NIV Bilevel 70.00 01/07/21 04:00 36.0 70.00 01/07/21 03:00 60 124/68 (86) 94 NIV Bilevel 75.00 01/07/21 02:00 51 129/71 (90) 98 NIV Bilevel 75.00 01/07/21 01:56 57 24 95 75.00 01/07/21 01:00 55 01/07/21 01:00 55 118/73 (88) 95 NIV Bilevel 75.00 01/07/21 00:00 NIV Bilevel 80 01/07/21 00:00 54 104/57 (73) 95 NIV Bilevel 75.00 01/07/21 00:00 36.0 NIV Bilevel 75.00 01/06/21 23:00 56 109/59 (76) 98 NIV Bilevel 80.00 01/06/21 22:02 53 20 98 75.00 01/06/21 22:00 53 113/67 (82) 99 NIV Bilevel 80.00 01/06/21 21:00 64 99/49 (66) 96 NIV Bilevel 80.00 01/06/21 20:00 Vapotherm 100 01/06/21 20:00 70 137/70 (92) 98 NIV Bilevel 80.00 01/06/21 19:40 35.8 01/06/21 19:00 60 01/06/21 19:00 58 98 NIV Bilevel 80.00 01/06/21 18:30 57 27 99 80.00 01/06/21 18:00 59 106/73 (84) 94 NIV Bilevel 80.00 01/06/21 17:00 55 108/56 (73) 100 NIV Bilevel 80.00 01/06/21 16:00 73 117/70 (86) 84 NIV Bilevel 80.00 01/06/21 16:00 NIV Bilevel 90 01/06/21 15:00 66 100/51 (67) 97 Vapotherm 35.00 95.00 01/06/21 14:00 66 122/78 (93) 94 Vapotherm 35.00 95.00 01/06/21 13:45 Vapotherm 35.00 95.00 01/06/21 13:29 98 Vapotherm 35.00 95 01/06/21 13:02 55 01/06/21 13:00 54 109/64 (79) 93 NIV Bilevel 80.00 01/06/21 12:00 35.7 01/06/21 12:00 52 124/74 (91) 99 NIV Bilevel 80.00 01/06/21 12:00 NIV Bilevel 90 01/06/21 11:00 56 117/75 (89) 97 NIV Bilevel 80.00 01/06/21 10:58 NIV Bilevel 80.00 01/06/21 10:50 62 26 97 90.00 01/06/21 10:00 51 101/65 (77) 97 NIV Bilevel 90.00 01/06/21 09:04 NIV Bilevel 90.00 01/06/21 09:00 54 109/73 (85) 100 NIV Bilevel 90.00 I & O 01/07/21 07:00 Intake Total 1415 ml Output Total 1775 ml Balance -360 ml Height & Weight Height: '" Weight: lbs. oz. kg; 39.95 BMI Method: General Appearance: No Apparent Distress, Chronically ill, Obese HEENT: PERRL/EOMI, Pharynx Normal Neck: Normal Inspection, Supple Respiratory: No Accessory Muscle Use, No Respiratory Distress, Decreased Breath Sounds Cardiovascular: Regular Rate, Rhythm, No Murmur Capillary Refill: Less Than 3 Seconds Extremity: Normal Inspection, Non Tender, No Pedal Edema Neurologic/Psychiatric: Alert, Oriented x3 Skin: Normal Color, Warm/Dry Lymphatic: No Adenopathy Results Lab Laboratory Tests 01/06/21 03:15 01/07/21 02:35 Assessment/Plan Assessment/Plan (Tele-ICU Physician , Progress Note ) Available chart/ vitals / labs / Images reviewed Video assessment done using teleICU camera, rest of exam as per RN Discussed with RN Events overnight : was sitting in a chair Afebrile I/O = even Drips: Pressors: , hemodynamically stable EXAM PER RN Consultants: nasir Hospital course: 01/01 - COVID PNA 01/04 - trnsfer to ICU on Vapotherm , bipap at night 01/05 BIPAP 18/10 100% rr 40 - tv 550 - TV 23 L 01/06 - RR ? to 20s on biapp 90% 01/06 - PAF - cards consulted - eliquis started 01/07 - vapothemt 70% 40L A/P Acute hypoxic resp failure - BIPAP 18/ 10 - 70 % , RR to 20s - PRN vapotherm -BIAPAP at night ( even if tolerates Vapotherm -prone position if able - conservative fluid strategy (aim for even or negative fluid balance - CR stable , monitor id she can get PO HHYP-Vyjjdgktfbu-9/COVID-19 infection- ( Dx on admission 01/01, symptoms started a few days prior -Remdesivir - follow LFT Convalescent plasma -Steroids IV - started -Hypercoagulable state , DDIMER on low side 01/05-> lovenox ppx dose ,started on ELIQUIS 01/06 ( fo PAF Suspected superimposed bact PNA -empiric abx started on Rocephin and Azithromycin PAF - intermittent , on 01/06 - beta blockers , ELIQUIS 01/06 Acute alcohol intoxication - Alcohol abuse- Denies every day alcohol use at this time Loose BM X 1 - on ABX , s/p stool softener - monitor Lines : periph (Central Line Necessity Reviewed) Mulligan: + OG: Nutrition: PO to try Analgesia: Anxiety/ delirium xanax VTE Prophylaxis: [id number] Stress Ulcer Prophylaxis: po intake Glycemic Control: ISS Plans in collaboration with bedside consultants and IM MDs. Discussed with RN to reach out if any questions or concerns A total of 32 minutes of critical care time was devoted to this patient today, required to treat and/or prevent further deterioration of critical care condition ( as above ) . IGLESIA DIEZ MD Jan 07, 2021 08:27
[2021-01-07] MEDS: RT-ALBUTEROL INHALER HFA (VENTOLIN HFA) 18 GM IH PRN (08:29)
[2021-01-07] MEDS: meTOprolol TARTRATE 25 MG (LOPRESSOR) TABLET PO SCH ×2 (08:58→20:05)
[2021-01-07] MEDS: DOCUSATE SODIUM 100 MG (COLACE) CAP PO SCH ×2 (08:58→20:05)
[2021-01-07] MEDS: SENNOSIDES 8.6 MG (SENOKOT) TAB PO SCH ×2 (08:58→20:23)
[2021-01-07] MEDS: QUEtiapine 100 MG (SEROquel) TAB IMMEDIATE RELEASE PO SCH (08:58)
[2021-01-07] MEDS: PRAMIPEXOLE 0.5 MG TAB (MIRAPEX) PO SCH ×2 (08:58→20:05)
[2021-01-07] MEDS: APIXABAN 5 MG (ELIQUIS) TABLET PO SCH ×2 (08:58→20:05)
[2021-01-07] MEDS: NS IV 500 ML 500 ML IV SCH (08:59)
--- NOTE | 2021-01-07 09:42 | Cardiology Progress Note ---
Progress Note-Cardiology Events since last exam Date Seen by Provider: Jan 07, 2021 Time Seen by Provider: 09:39 Events since last exam We are seeing her due to paroxysmal atrial fibrillation. I did not see the patient today due to her Covid status. I reviewed her telemetry and she has not had any recurrent atrial fibrillation in the last 24 hours. Vitals Last set of Vitals Signs Vital Signs 01/07/21 01/07/21 01/07/21 01/07/21 04:00 07:54 08:00 08:31 Temp 35.6 Pulse 57 Resp 19 B/P (MAP) 128/68 (88) Pulse Ox 99 O2 Delivery NIV Bilevel O2 Flow Rate 60.00 FiO2 70 Labs Labs Laboratory Tests 01/07/21 02:35 Exam Vital Signs Vital Signs Date Time Temp Pulse Resp B/P (MAP) Pulse Ox O2 Delivery O2 Flow Rate FiO2 01/07/21 08:31 57 19 99 60.00 01/07/21 08:00 128/68 (88) NIV Bilevel 01/07/21 07:54 35.6 01/07/21 04:00 70 Physical Exam The patient was not examined due to her Covid status. Labs Laboratory Tests Test 01/06/21 11:12 01/06/21 16:24 01/06/21 20:57 01/07/21 02:35 Range/Units Glucometer 138 H 120 H 151 H 70-110 MG/DL White Blood Count 4.4 4.3-11.0 10^3/uL Red Blood Count 3.46 L 3.80-5.11 10^6/uL Hemoglobin 10.1 L 11.5-16.0 g/dL Hematocrit 31 L 35-52 % Mean Corpuscular Volume 90 80-99 fL Mean Corpuscular Hemoglobin 29 25-34 pg Mean Corpuscular Hemoglobin Concent 33 32-36 g/dL Red Cell Distribution Width 13.8 10.0-14.5 % Platelet Count 179 130-400 10^3/uL Mean Platelet Volume 10.3 9.0-12.2 fL Immature Granulocyte % (Auto) 2 % Neutrophils (%) (Auto) 53 42-75 % Lymphocytes (%) (Auto) 39 12-44 % Monocytes (%) (Auto) 7 0-12 % Eosinophils (%) (Auto) 0 0-10 % Basophils (%) (Auto) 0 0-10 % Neutrophils # (Auto) 2.3 1.8-7.8 10^3/uL Lymphocytes # (Auto) 1.7 1.0-4.0 10^3/uL Monocytes # (Auto) 0.3 0.0-1.0 10^3/uL Eosinophils # (Auto) 0.0 0.0-0.3 10^3/uL Basophils # (Auto) 0.0 0.0-0.1 10^3/uL Immature Granulocyte # (Auto) 0.1 0.0-0.1 10^3/uL Sodium Level 142 135-145 MMOL/L Potassium Level 3.5 L 3.6-5.0 MMOL/L Chloride Level 100 98-107 MMOL/L Carbon Dioxide Level 29 21-32 MMOL/L Anion Gap 13 5-14 MMOL/L Blood Urea Nitrogen 19 H 7-18 MG/DL Creatinine 0.74 0.60-1.30 MG/DL Estimat Glomerular Filtration Rate 80 BUN/Creatinine Ratio 26 Glucose Level 99 70-105 MG/DL Calcium Level 8.3 L 8.5-10.1 MG/DL Corrected Calcium 9.0 8.5-10.1 MG/DL Total Bilirubin 0.5 0.1-1.0 MG/DL Aspartate Amino Transf (AST/SGOT) 32 5-34 U/L Alanine Aminotransferase (ALT/SGPT) 25 0-55 U/L Alkaline Phosphatase 109 40-136 U/L Total Protein 5.6 L 6.4-8.2 GM/DL Albumin 3.1 L 3.2-4.5 GM/DL Diagnosis/Problems Diagnosis/Problems (1) Paroxysmal atrial fibrillation Assessment & Plan: She remains in sinus rhythm on metoprolol. Apixaban has been started for stroke prophylaxis. If she starts to have recurrent episodes of atrial fibrillation, we may want to consider a short course of antiarrhythmic drug therapy. Once she is discharged to home, she will need outpatient cardiology follow-up and an echocardiogram would be helpful after she is treated for the Covid. (2) Morbid obesity Status: Chronic Assessment & Plan: There is data in the literature to show that 20 pounds of weight loss will help decrease the risk of recurrent atrial fibrillation. CONI LEWIS JR, MD Jan 07, 2021 09:42
--- NOTE | 2021-01-07 09:51 | Progress Note - Hospitalist ---
Subjective HPI/CC On Admission Date Seen by Provider: Jan 07, 2021 Time Seen by Provider: 09:50 Ilana Camara is a 60-year-old female with past medical history of anxiety, depression, COPD, alcohol abuse, who presented with shortness of breath. She has been short of breath for several days. She has also had a cough. She denies any fevers or chills. She denies any abdominal pain. She denies any nausea or vomiting. She has not had diarrhea. She denies chest pain. She did not get the Covid vaccine. She does not know of any sick contacts. She has been drinking heavily recently. Subjective/Events-last exam Pt reports feeling fair today. Her only concern today is about getting a bath/shower and increasing her pain medication. I informed her that we will address her pain as much as possible but have to balance this with her respiratory status. She agrees. Objective Exam Vital Signs Vital Signs Date Time Temp Pulse Resp B/P (MAP) Pulse Ox O2 Delivery O2 Flow Rate FiO2 01/07/21 13:43 100 Vapotherm 30.00 85 01/07/21 11:39 35.2 01/07/21 11:00 72 91/57 (68) 01/07/21 08:31 19 Capillary Refill : Less Than 3 Seconds General Appearance: No Apparent Distress Results/Procedures Lab Laboratory Tests 01/07/21 02:35 Patient resulted labs reviewed. Imaging: Reviewed Imaging Report Assessment/Plan Assessment and Plan Assess & Plan/Chief Complaint Acute respiratory failure due to COVID-19 COPD Still on BiPAP, encouraged continued OOB, very high risk for intubation still despite some improvement with oxygen requirement Covid positive on admission 01/01, symptoms started a few days prior Chest x-ray consistent with Covid, bilateral infiltrates Ddimer mildly elevated, repeats essentially the same Continue ppx lovenox Procalcitonin elevated but trended down Continue abx MAT protocol Continue Decadron received Actemra Cannot tolerating proning TeleICU consulted, appreciate assistance Acute alcohol intoxication Alcohol abuse Reports remote history of withdrawal Denies every day alcohol use at this time No evidence of withdrawal Anxiety Depression Continue home meds Morbid obesity hyperglycemia Clinically significant, no acute management needs DVT prophylaxis: Lovenox Lactic acidosis, resolved QUINN KENT MD Jan 07, 2021 09:51
[2021-01-07] MEDS: LOPERAMIDE 2 MG (IMODIUM) TABLET PO PRN (18:50)
[2021-01-07] MEDS: QUEtiapine 200 MG (SEROquel) TAB IMMEDIATE RELEASE PO SCH (20:05)
[2021-01-08] VITALS (16 sets, daily range): BP systolic 102–137; BP diastolic 52–95
[2021-01-08] MEDS: RT-ALBUTEROL INHALER HFA (VENTOLIN HFA) 18 GM IH SCH ×6 (02:13→22:16)
[2021-01-08] MEDS: NS IV 500 ML 500 ML IV SCH (04:17)
[2021-01-08 04:42] LABS: BASOPHILS % (AUTO) 0 % (0-10); EOSINOPHILS # (AUTO) 0.1 10^3/uL (0.0-0.3); EOSINOPHILS % (AUTO) 1 % (0-10); HEMATOCRIT 32 % (35-52); HEMOGLOBIN 10.2 g/dL (11.5-16.0); LYMPHOCYTES # (AUTO) 2.4 10^3/uL (1.0-4.0); LYMPHOCYTES % (AUTO) 39 % (12-44); MEAN CORPUSCULAR HEMOGLOBIN 29 pg (25-34); MEAN CORPUSCULAR HGB CONC 32 g/dL (32-36); MEAN CORPUSCULAR VOLUME 90 fL (80-99); MEAN PLATELET VOLUME 10.1 fL (9.0-12.2); MONOCYTES # (AUTO) 0.4 10^3/uL (0.0-1.0); MONOCYTES % (AUTO) 6 % (0-12); NEUTROPHILS # (AUTO) 3.1 10^3/uL (1.8-7.8); NEUTROPHILS % (AUTO) 51 % (42-75); PLATELET COUNT 212 10^3/uL (130-400); WHITE BLOOD COUNT 6.1 10^3/uL (4.3-11.0)
[2021-01-08 04:59] LABS: ALBUMIN 3.1 GM/DL (3.2-4.5); POTASSIUM 3.4 MMOL/L (3.6-5.0)
[2021-01-08 05:00] LABS: CALCIUM 8.3 MG/DL (8.5-10.1)
[2021-01-08 05:02] LABS: TOTAL PROTEIN 5.5 GM/DL (6.4-8.2)
[2021-01-08 05:03] LABS: BILIRUBIN,TOTAL 0.5 MG/DL (0.1-1.0)
[2021-01-08 05:05] LABS: CREATININE SERUM 0.8 MG/DL (0.60-1.30)
[2021-01-08] MEDS: POTASSIUM CL 10MEQ/50ML IVPB 50 ML IV SCH (05:23)
[2021-01-08] MEDS: KCL 20 MEQ TAB (K-DUR) PO SCH (05:23)
[2021-01-08] MEDS: inSUlin ASPART (NovoLOG) 1 UNIT/0.01 ML (CHARGE PER UNIT) SC SCH ×4 (05:25→21:26)
[2021-01-08] MEDS ORDERED: KCL 20 MEQ TAB (K-DUR) PO ONE (05:30)
[2021-01-08] MEDS: MAGNESIUM 1 GM/100 ML IVPB 100 ML IV SCH (05:54)
[2021-01-08] MEDS: dexAMETHasone 6 MG TAB (DECADRON) PO SCH (06:13)
--- NOTE | 2021-01-08 07:57 | Physical Therapy Progress Note ---
Therapy Progress Note Patient currently on Vapotherm and is up with nursing staff SBA to independent. PT will require new orders due to transfer. MAGDI LEIGH PT Jan 08, 2021 07:57
--- NOTE | 2021-01-08 08:52 | Progress Note - Hospitalist ---
Subjective HPI/CC On Admission Date Seen by Provider: Jan 08, 2021 Time Seen by Provider: 08:45 Ilana Camara is a 60-year-old female with past medical history of anxiety, depression, COPD, alcohol abuse, who presented with shortness of breath. She has been short of breath for several days. She has also had a cough. She denies any fevers or chills. She denies any abdominal pain. She denies any nausea or vomiting. She has not had diarrhea. She denies chest pain. She did not get the Covid vaccine. She does not know of any sick contacts. She has been drinking heavily recently. Subjective/Events-last exam Pt reports feeling better today. Currently on vapotherm. Wore BiPAP all night. Encouraged continued OOB activity and IS. Objective Exam Vital Signs Vital Signs Date Time Temp Pulse Resp B/P (MAP) Pulse Ox O2 Delivery O2 Flow Rate FiO2 01/08/21 08:11 35.9 01/08/21 07:17 94 Vapotherm 30.00 100 01/08/21 06:00 60 132/81 (98) 01/08/21 02:13 18 Capillary Refill : Less Than 3 Seconds General Appearance: No Apparent Distress, WD/WN Respiratory: No Accessory Muscle Use, Crackles, Decreased Breath Sounds, Other (on Vapotherm) Cardiovascular: Regular Rate, Rhythm, No Murmur Gastrointestinal: Normal Bowel Sounds, Non Tender, Soft Neurologic/Psychiatric: Alert, Oriented x3 Results/Procedures Lab Laboratory Tests 01/08/21 04:15 Patient resulted labs reviewed. Imaging: Reviewed Imaging Report Assessment/Plan Assessment and Plan Assess & Plan/Chief Complaint Acute respiratory failure due to COVID-19 COPD On Vapotherm, encouraged continued OOB/IS, still high risk for COVID but hopefully improving and may be able to avoid Covid positive on admission 01/01, symptoms started a few days prior Chest x-ray consistent with Covid, bilateral infiltrates Ddimer mildly elevated, repeats essentially the same Continue ppx lovenox Continue abx MAT protocol Continue Decadron received Actemra Cannot tolerating proning TeleICU consulted, appreciate assistance Acute alcohol intoxication Alcohol abuse Reports remote history of withdrawal Denies every day alcohol use at this time No evidence of withdrawal Anxiety Depression Continue home meds Requesting Lexapro restarted but not on med rec or in fill history, will confirm dose and restart Morbid obesity hyperglycemia Clinically significant, no acute management needs DVT prophylaxis: Lovenox Lactic acidosis, resolved QUINN KENT MD Jan 08, 2021 08:52
--- NOTE | 2021-01-08 09:04 | Cardiology Progress Note ---
Progress Note-Cardiology Events since last exam Date Seen by Provider: Jan 08, 2021 Time Seen by Provider: 09:03 Events since last exam We are seeing the patient due to paroxysmal atrial fibrillation. I did not enter the room due to Covid status. I did speak with the nurse. I did review telemetry and she has remained in sinus rhythm. Certain portions of this document may have been dictated utilizing voice recognition technology. Inherent to this technology, typographical and grammatical errors may exist. As much as I am diligent to identify and correct these mistakes, some errors may remain in the document. Vitals Last set of Vitals Signs Vital Signs 01/08/21 01/08/21 01/08/21 01/08/21 01/08/21 15:00 15:58 16:00 17:00 18:35 Temp 36.2 Pulse 70 Resp 18 B/P (MAP) 120/95 (103) Pulse Ox 92 O2 Delivery Vapotherm O2 Flow Rate 25.00 FiO2 45 Labs Labs Laboratory Tests 01/08/21 04:15 Exam Vital Signs Vital Signs Date Time Temp Pulse Resp B/P (MAP) Pulse Ox O2 Delivery O2 Flow Rate FiO2 01/08/21 18:35 92 Vapotherm 25.00 45 01/08/21 17:00 70 01/08/21 15:58 36.2 01/08/21 15:00 18 Physical Exam I did not examine the patient due to Covid status. Labs Laboratory Tests Test 01/07/21 20:22 01/08/21 04:15 01/08/21 10:51 01/08/21 15:31 Range/Units Glucometer 79 170 H 120 H 70-110 MG/DL White Blood Count 6.1 4.3-11.0 10^3/uL Red Blood Count 3.53 L 3.80-5.11 10^6/uL Hemoglobin 10.2 L 11.5-16.0 g/dL Hematocrit 32 L 35-52 % Mean Corpuscular Volume 90 80-99 fL Mean Corpuscular Hemoglobin 29 25-34 pg Mean Corpuscular Hemoglobin Concent 32 32-36 g/dL Red Cell Distribution Width 13.9 10.0-14.5 % Platelet Count 212 130-400 10^3/uL Mean Platelet Volume 10.1 9.0-12.2 fL Immature Granulocyte % (Auto) 3 % Neutrophils (%) (Auto) 51 42-75 % Lymphocytes (%) (Auto) 39 12-44 % Monocytes (%) (Auto) 6 0-12 % Eosinophils (%) (Auto) 1 0-10 % Basophils (%) (Auto) 0 0-10 % Neutrophils # (Auto) 3.1 1.8-7.8 10^3/uL Lymphocytes # (Auto) 2.4 1.0-4.0 10^3/uL Monocytes # (Auto) 0.4 0.0-1.0 10^3/uL Eosinophils # (Auto) 0.1 0.0-0.3 10^3/uL Basophils # (Auto) 0.0 0.0-0.1 10^3/uL Immature Granulocyte # (Auto) 0.2 H 0.0-0.1 10^3/uL Sodium Level 143 135-145 MMOL/L Potassium Level 3.4 L 3.6-5.0 MMOL/L Chloride Level 102 98-107 MMOL/L Carbon Dioxide Level 28 21-32 MMOL/L Anion Gap 13 5-14 MMOL/L Blood Urea Nitrogen 18 7-18 MG/DL Creatinine 0.80 0.60-1.30 MG/DL Estimat Glomerular Filtration Rate 73 BUN/Creatinine Ratio 23 Glucose Level 99 70-105 MG/DL Calcium Level 8.3 L 8.5-10.1 MG/DL Corrected Calcium 9.0 8.5-10.1 MG/DL Magnesium Level 1.9 1.6-2.4 MG/DL Total Bilirubin 0.5 0.1-1.0 MG/DL Aspartate Amino Transf (AST/SGOT) 31 5-34 U/L Alanine Aminotransferase (ALT/SGPT) 21 0-55 U/L Alkaline Phosphatase 108 40-136 U/L Total Protein 5.5 L 6.4-8.2 GM/DL Albumin 3.1 L 3.2-4.5 GM/DL Diagnosis/Problems Diagnosis/Problems (1) Paroxysmal atrial fibrillation Assessment & Plan: No further atrial fibrillation since starting metoprolol. Continue apixaban started for stroke prophylaxis. If she starts to have recurrent episodes of atrial fibrillation, we may want to consider a short course of antiarrhythmic drug therapy. Once she is discharged to home, she will need outpatient cardiology follow-up and an echocardiogram would be helpful after she is treated for the Covid. (2) Morbid obesity Status: Chronic Assessment & Plan: There is data in the literature to show that 20 pounds of weight loss will help decrease the risk of recurrent atrial fibrillation. CONI LEWIS JR, MD Jan 08, 2021 09:04
[2021-01-08] MEDS: QUEtiapine 100 MG (SEROquel) TAB IMMEDIATE RELEASE PO SCH (09:05)
[2021-01-08] MEDS: APIXABAN 5 MG (ELIQUIS) TABLET PO SCH ×2 (09:05→21:25)
[2021-01-08] MEDS: PRAMIPEXOLE 0.5 MG TAB (MIRAPEX) PO SCH ×2 (09:05→21:25)
[2021-01-08] MEDS: meTOprolol TARTRATE 25 MG (LOPRESSOR) TABLET PO SCH ×2 (09:05→21:25)
[2021-01-08] MEDS: SENNOSIDES 8.6 MG (SENOKOT) TAB PO SCH ×2 (09:07→21:53)
[2021-01-08] MEDS: DOCUSATE SODIUM 100 MG (COLACE) CAP PO SCH ×2 (09:07→21:53)
--- NOTE | 2021-01-08 09:18 | Tele-ICU Progress Note ---
Subjective Date Seen by a Provider: Jan 08, 2021 Time Seen by a Provider: 11:00 Subjective/Events-last exam PNA from COVID, on vapotherm, 30 lpm, FiO2 70% with good SpO2 on decadron, remdesivir, eliquis for PAF CXR shows extensive bilateral opacities Not working hard to breathe c/o chronic back pain Sepsis Event Evaluation Height, Weight, BMI Height: '" Weight: lbs. oz. kg; 39.95 BMI Method: Exam Exam Patient acknowledged, consented, and participated in this virtual visit which was conducted using real time audio/video Vital Signs Date Time Temp Pulse Resp B/P (MAP) Pulse Ox O2 Delivery O2 Flow Rate FiO2 01/08/21 08:11 35.9 01/08/21 08:00 76 131/67 (85) 97 Vapotherm 30.00 70.00 01/08/21 07:17 94 Vapotherm 30.00 100 01/08/21 07:00 61 01/08/21 07:00 63 136/73 (102) 89 Vapotherm 30.00 70.00 01/08/21 06:19 Vapotherm 30.00 70.00 01/08/21 06:00 60 132/81 (98) 100 NIV Bilevel 70.00 01/08/21 05:00 57 124/76 (92) 97 NIV Bilevel 70.00 01/08/21 04:00 94 NIV Bilevel 70 01/08/21 04:00 35.1 01/08/21 04:00 60 123/66 (85) 97 NIV Bilevel 70.00 01/08/21 03:00 62 127/70 (89) 93 NIV Bilevel 70.00 01/08/21 02:13 64 18 98 50.00 01/08/21 01:00 65 01/08/21 00:00 NIV Bilevel 70 01/07/21 23:46 NIV Bilevel 70.00 01/07/21 23:26 35.3 01/07/21 23:00 73 155/115 (128) 100 Vapotherm 30.00 70.00 01/07/21 22:00 72 154/83 (106) 93 Vapotherm 30.00 70.00 01/07/21 21:44 92 Vapotherm 30.00 70 01/07/21 21:00 61 98/57 (71) 97 Vapotherm 30.00 70.00 01/07/21 20:00 67 115/77 (90) 100 Vapotherm 30.00 70.00 01/07/21 20:00 Vapotherm 30.00 80 01/07/21 19:35 35.9 01/07/21 19:00 81 01/07/21 19:00 81 114/57 (76) 100 Vapotherm 30.00 70.00 01/07/21 18:38 93 Vapotherm 30.00 70 01/07/21 16:25 35.9 01/07/21 16:00 Vapotherm 30.00 80 01/07/21 14:00 71 131/71 (91) 93 NIV Bilevel 70.00 01/07/21 13:43 100 Vapotherm 30.00 85 01/07/21 13:00 59 121/68 (85) 87 NIV Bilevel 70.00 01/07/21 12:44 61 01/07/21 12:00 56 117/64 (81) 100 NIV Bilevel 70.00 01/07/21 12:00 Vapotherm 40.00 100 01/07/21 11:39 35.2 01/07/21 11:00 72 91/57 (68) 94 NIV Bilevel 70.00 01/07/21 10:12 96 Vapotherm 40.00 100 01/07/21 10:00 75 94 NIV Bilevel 70.00 01/07/21 10:00 106/48 (67) I & O 01/08/21 06:59 Intake Total 1345 ml Output Total 1190 ml Balance 155 ml Height & Weight Height: '" Weight: lbs. oz. kg; 39.95 BMI Method: General Appearance: No Apparent Distress, WD/WN HEENT: PERRL/EOMI, Pharynx Normal Neck: Normal Inspection, Supple Respiratory: No Accessory Muscle Use, Crackles, Decreased Breath Sounds, Other (on Vapotherm) Cardiovascular: Regular Rate, Rhythm, No Murmur Capillary Refill: Less Than 3 Seconds Gastrointestinal: normal bowel sounds, non tender, soft Extremity: Normal Inspection, Non Tender, No Pedal Edema Neurologic/Psychiatric: Alert, Oriented x3 Skin: Normal Color, Warm/Dry Lymphatic: No Adenopathy Results Lab Laboratory Tests 01/07/21 02:35 01/08/21 04:15 Assessment/Plan Assessment/Plan Severe COVID PNA, continue present meds, has gotten convalescent plasma, Despite CXR looks better Can send to floor, keep on vapotherm continue Eliquis Critical Care: Critically Ill Patient CHRISTOPHER ROE MD Jan 08, 2021 09:18
[2021-01-08] MEDS ORDERED: ESCI20TA PO (10:35)
[2021-01-08] MEDS: LOPERAMIDE 2 MG (IMODIUM) TABLET PO PRN ×2 (18:01→21:25)
[2021-01-08] MEDS: QUEtiapine 200 MG (SEROquel) TAB IMMEDIATE RELEASE PO SCH (21:30)
[2021-01-09] VITALS (7 sets, daily range): BP systolic 130–144; BP diastolic 66–81
[2021-01-09] MEDS: RT-ALBUTEROL INHALER HFA (VENTOLIN HFA) 18 GM IH SCH ×6 (02:26→22:20)
[2021-01-09 04:04] LABS: BASOPHILS % (AUTO) 0 % (0-10); EOSINOPHILS # (AUTO) 0.1 10^3/uL (0.0-0.3); EOSINOPHILS % (AUTO) 1 % (0-10); HEMATOCRIT 32 % (35-52); HEMOGLOBIN 10.2 g/dL (11.5-16.0); LYMPHOCYTES # (AUTO) 2.4 10^3/uL (1.0-4.0); LYMPHOCYTES % (AUTO) 30 % (12-44); MEAN CORPUSCULAR HEMOGLOBIN 29 pg (25-34); MEAN CORPUSCULAR HGB CONC 32 g/dL (32-36); MEAN CORPUSCULAR VOLUME 91 fL (80-99); MEAN PLATELET VOLUME 9.9 fL (9.0-12.2); MONOCYTES # (AUTO) 0.5 10^3/uL (0.0-1.0); MONOCYTES % (AUTO) 6 % (0-12); NEUTROPHILS # (AUTO) 4.9 10^3/uL (1.8-7.8); NEUTROPHILS % (AUTO) 60 % (42-75); PLATELET COUNT 218 10^3/uL (130-400); WHITE BLOOD COUNT 8.2 10^3/uL (4.3-11.0)
[2021-01-09 04:13] LABS: ALBUMIN 3.2 GM/DL (3.2-4.5)
[2021-01-09 04:14] LABS: CALCIUM 8.4 MG/DL (8.5-10.1)
[2021-01-09 04:16] LABS: TOTAL PROTEIN 5.6 GM/DL (6.4-8.2)
[2021-01-09 04:17] LABS: BILIRUBIN,TOTAL 0.5 MG/DL (0.1-1.0)
[2021-01-09] MEDS: inSUlin ASPART (NovoLOG) 1 UNIT/0.01 ML (CHARGE PER UNIT) SC SCH ×4 (04:17→20:04)
[2021-01-09 04:19] LABS: CREATININE SERUM 0.91 MG/DL (0.60-1.30)
[2021-01-09 04:23] LABS: MAGNESIUM 1.9 MG/DL (1.6-2.4)
[2021-01-09] MEDS: dexAMETHasone 6 MG TAB (DECADRON) PO SCH (06:28)
[2021-01-09] MEDS: QUEtiapine 100 MG (SEROquel) TAB IMMEDIATE RELEASE PO SCH (09:27)
[2021-01-09] MEDS: APIXABAN 5 MG (ELIQUIS) TABLET PO SCH ×2 (09:28→20:04)
[2021-01-09] MEDS: DOCUSATE SODIUM 100 MG (COLACE) CAP PO SCH ×2 (09:28→19:31)
[2021-01-09] MEDS: meTOprolol TARTRATE 25 MG (LOPRESSOR) TABLET PO SCH ×2 (09:28→20:04)
[2021-01-09] MEDS: PRAMIPEXOLE 0.5 MG TAB (MIRAPEX) PO SCH ×2 (09:28→20:03)
[2021-01-09] MEDS: SENNOSIDES 8.6 MG (SENOKOT) TAB PO SCH ×2 (09:29→20:04)
--- NOTE | 2021-01-09 11:04 | Cardiology Progress Note ---
Progress Note-Cardiology Events since last exam Date Seen by Provider: Jan 09, 2021 Time Seen by Provider: 11:02 Events since last exam We are seeing her due to atrial fibrillation. She remains on telemetry. No recurrent atrial fibrillation. I did not see the patient due to her Covid status. Certain portions of this document may have been dictated utilizing voice recognition technology. Inherent to this technology, typographical and grammatical errors may exist. As much as I am diligent to identify and correct these mistakes, some errors may remain in the document. Vitals Last set of Vitals Signs Vital Signs 01/09/21 01/09/21 01/09/21 08:45 09:59 10:00 Temp 36.2 Pulse 79 Resp 21 B/P (MAP) 135/78 (97) Pulse Ox 98 O2 Delivery Vapotherm O2 Flow Rate 30.00 FiO2 65 Labs Labs Laboratory Tests 01/09/21 03:50 Exam Vital Signs Vital Signs Date Time Temp Pulse Resp B/P (MAP) Pulse Ox O2 Delivery O2 Flow Rate FiO2 01/09/21 10:00 30.00 65 01/09/21 09:59 98 Vapotherm 01/09/21 08:45 36.2 79 21 135/78 (97) Physical Exam I did not examine the patient due to her Covid status. Labs Laboratory Tests Test 01/08/21 15:31 01/08/21 20:28 01/09/21 03:50 Range/Units Glucometer 120 H 115 H 70-110 MG/DL White Blood Count 8.2 4.3-11.0 10^3/uL Red Blood Count 3.47 L 3.80-5.11 10^6/uL Hemoglobin 10.2 L 11.5-16.0 g/dL Hematocrit 32 L 35-52 % Mean Corpuscular Volume 91 80-99 fL Mean Corpuscular Hemoglobin 29 25-34 pg Mean Corpuscular Hemoglobin Concent 32 32-36 g/dL Red Cell Distribution Width 14.1 10.0-14.5 % Platelet Count 218 130-400 10^3/uL Mean Platelet Volume 9.9 9.0-12.2 fL Immature Granulocyte % (Auto) 3 % Neutrophils (%) (Auto) 60 42-75 % Lymphocytes (%) (Auto) 30 12-44 % Monocytes (%) (Auto) 6 0-12 % Eosinophils (%) (Auto) 1 0-10 % Basophils (%) (Auto) 0 0-10 % Neutrophils # (Auto) 4.9 1.8-7.8 10^3/uL Lymphocytes # (Auto) 2.4 1.0-4.0 10^3/uL Monocytes # (Auto) 0.5 0.0-1.0 10^3/uL Eosinophils # (Auto) 0.1 0.0-0.3 10^3/uL Basophils # (Auto) 0.0 0.0-0.1 10^3/uL Immature Granulocyte # (Auto) 0.2 H 0.0-0.1 10^3/uL Sodium Level 143 135-145 MMOL/L Potassium Level 4.0 3.6-5.0 MMOL/L Chloride Level 102 98-107 MMOL/L Carbon Dioxide Level 27 21-32 MMOL/L Anion Gap 14 5-14 MMOL/L Blood Urea Nitrogen 22 H 7-18 MG/DL Creatinine 0.91 0.60-1.30 MG/DL Estimat Glomerular Filtration Rate 63 BUN/Creatinine Ratio 24 Glucose Level 109 H 70-105 MG/DL Calcium Level 8.4 L 8.5-10.1 MG/DL Corrected Calcium 9.0 8.5-10.1 MG/DL Magnesium Level 1.9 1.6-2.4 MG/DL Total Bilirubin 0.5 0.1-1.0 MG/DL Aspartate Amino Transf (AST/SGOT) 30 5-34 U/L Alanine Aminotransferase (ALT/SGPT) 26 0-55 U/L Alkaline Phosphatase 100 40-136 U/L Total Protein 5.6 L 6.4-8.2 GM/DL Albumin 3.2 3.2-4.5 GM/DL Diagnosis/Problems Diagnosis/Problems (1) Paroxysmal atrial fibrillation Assessment & Plan: No further atrial fibrillation since starting metoprolol. Continue apixaban started for stroke prophylaxis. If she starts to have recurrent episodes of atrial fibrillation, we may want to consider a short course of antiarrhythmic drug therapy. Once she is discharged to home, she will need outpatient cardiology follow-up and an echocardiogram would be helpful after she is treated for the Covid. I suspect the atrial fibrillation may have been brought on by the acute pulmonary illness. She may not need life long anticoagulation but it is too early to tell. (2) Morbid obesity Status: Chronic Assessment & Plan: Weight loss has been proven to help reduce the risk of recurrent atrial fibrillation. CONI LEWIS JR, MD Jan 09, 2021 11:04
--- NOTE | 2021-01-09 11:28 | Progress Note - Hospitalist ---
Subjective HPI/CC On Admission Date Seen by Provider: Jan 09, 2021 Time Seen by Provider: 11:25 Ilana Camara is a 60-year-old female with past medical history of anxiety, depression, COPD, alcohol abuse, who presented with shortness of breath. She has been short of breath for several days. She has also had a cough. She denies any fevers or chills. She denies any abdominal pain. She denies any nausea or vomiting. She has not had diarrhea. She denies chest pain. She did not get the Covid vaccine. She does not know of any sick contacts. She has been drinking heavily recently. Subjective/Events-last exam Pt reports feeling better today. No complaints. Breathing is easier. Objective Exam Vital Signs Vital Signs Date Time Temp Pulse Resp B/P (MAP) Pulse Ox O2 Delivery O2 Flow Rate FiO2 01/09/21 10:00 30.00 65 01/09/21 09:59 98 Vapotherm 01/09/21 08:45 36.2 79 21 135/78 (97) Capillary Refill : Less Than 3 Seconds General Appearance: No Apparent Distress, WD/WN Respiratory: No Accessory Muscle Use; No Crackles; Decreased Breath Sounds, Other (on Vapotherm- 30lpm at 70%) Cardiovascular: Regular Rate, Rhythm, No Murmur Extremity: No Calf Tenderness, No Pedal Edema Neurologic/Psychiatric: Alert, Oriented x3 Results/Procedures Lab Laboratory Tests 01/09/21 03:50 Patient resulted labs reviewed. Imaging: Reviewed Imaging Report Assessment/Plan Assessment and Plan Assess & Plan/Chief Complaint Acute respiratory failure due to COVID-19 COPD On Vapotherm, encouraged continued OOB/IS, continue to titrate down Covid positive on admission 01/01, symptoms started a few days prior Chest x-ray consistent with Covid, bilateral infiltrates Ddimer was elevated but stable, Continue ppx lovenox Continue abx MAT protocol Continue Decadron received Actemra Cannot tolerating proning TeleICU consulted, appreciate assistance Acute alcohol intoxication Alcohol abuse Reports remote history of withdrawal Denies every day alcohol use at this time No evidence of withdrawal Anxiety Depression Continue home meds- resumed per med rec Morbid obesity hyperglycemia Clinically significant, no acute management needs DVT prophylaxis: Lovenox Critical Care Critically Ill Patient QUINN KENT MD Jan 09, 2021 11:28
[2021-01-09] MEDS: QUEtiapine 200 MG (SEROquel) TAB IMMEDIATE RELEASE PO SCH (20:03)
[2021-01-09] MEDS: ALPRAZolam 0.5 MG (XANAX) TAB PO PRN (20:04)
[2021-01-09] MEDS: MELATONIN 3 MG TABLET PO PRN (20:04)
[2021-01-10] VITALS: BP 106/59
[2021-01-10 01:58] LABS: BASOPHILS % (AUTO) 0 % (0-10); EOSINOPHILS # (AUTO) 0.1 10^3/uL (0.0-0.3); EOSINOPHILS % (AUTO) 1 % (0-10); HEMATOCRIT 31 % (35-52); LYMPHOCYTES # (AUTO) 2.6 X 10^3 (1.0-4.0); LYMPHOCYTES % (AUTO) 26 % (12-44); MEAN CORPUSCULAR HEMOGLOBIN 30 pg (25-34); MEAN CORPUSCULAR HGB CONC 33 g/dL (32-36); MEAN CORPUSCULAR VOLUME 92 fL (80-99); MEAN PLATELET VOLUME 9.6 fL (9.0-12.2); MONOCYTES # (AUTO) 0.6 X 10^3 (0.0-1.0); MONOCYTES % (AUTO) 6 % (0-12); NEUTROPHILS # (AUTO) 6.5 X 10^3 (1.8-7.8); NEUTROPHILS % (AUTO) 65 % (42-75); PLATELET COUNT 236 10^3/uL (130-400); WHITE BLOOD COUNT 10.1 10^3/uL (4.3-11.0)
[2021-01-10] MEDS: RT-ALBUTEROL INHALER HFA (VENTOLIN HFA) 18 GM IH SCH ×5 (02:33→19:16)
[2021-01-10 03:10] LABS: CALCIUM 8.3 MG/DL (8.5-10.1); CREATININE SERUM 0.79 MG/DL (0.60-1.30); POTASSIUM 3.9 MMOL/L (3.6-5.0)
[2021-01-10 03:11] LABS: ALBUMIN 3.2 GM/DL (3.2-4.5); BILIRUBIN,TOTAL 0.5 MG/DL (0.1-1.0); TOTAL PROTEIN 5.8 GM/DL (6.4-8.2)
[2021-01-10 03:42] LABS: MAGNESIUM 1.9 MG/DL (1.6-2.4)
[2021-01-10 04:00] VITALS: BP 128/66
[2021-01-10] MEDS: inSUlin ASPART (NovoLOG) 1 UNIT/0.01 ML (CHARGE PER UNIT) SC SCH ×4 (06:22→21:44)
[2021-01-10] MEDS: dexAMETHasone 6 MG TAB (DECADRON) PO SCH (06:43)
[2021-01-10 07:58] VITALS: BP 115/65
[2021-01-10] MEDS: QUEtiapine 100 MG (SEROquel) TAB IMMEDIATE RELEASE PO SCH (08:57)
[2021-01-10] MEDS: DOCUSATE SODIUM 100 MG (COLACE) CAP PO SCH ×3 (08:57→19:48)
[2021-01-10] MEDS: SENNOSIDES 8.6 MG (SENOKOT) TAB PO SCH ×3 (08:57→19:49)
[2021-01-10] MEDS: meTOprolol TARTRATE 25 MG (LOPRESSOR) TABLET PO SCH ×2 (08:57→21:45)
[2021-01-10] MEDS: PRAMIPEXOLE 0.5 MG TAB (MIRAPEX) PO SCH ×2 (08:57→21:44)
[2021-01-10] MEDS: APIXABAN 5 MG (ELIQUIS) TABLET PO SCH ×2 (08:57→21:45)
--- NOTE | 2021-01-10 09:44 | Cardiology Progress Note ---
Progress Note-Cardiology Events since last exam Date Seen by Provider: Jan 10, 2021 Time Seen by Provider: 09:42 Events since last exam We are seeing her due to paroxysmal atrial fibrillation. I did not actually see the patient due to her Covid status. I did review the telemetry and there have been no signs of recurrent atrial fibrillation. Certain portions of this document may have been dictated utilizing voice recognition technology. Inherent to this technology, typographical and grammatical errors may exist. As much as I am diligent to identify and correct these mistakes, some errors may remain in the document. Vitals Last set of Vitals Signs Vital Signs 01/09/21 01/10/21 01/10/21 16:12 07:12 07:58 Temp 35.0 Pulse 63 Resp 20 B/P (MAP) 115/65 (82) Pulse Ox 97 O2 Delivery Vapotherm O2 Flow Rate 30.00 70.00 FiO2 70 Labs Labs Laboratory Tests 01/10/21 01:50 Exam Vital Signs Vital Signs Date Time Temp Pulse Resp B/P (MAP) Pulse Ox O2 Delivery O2 Flow Rate FiO2 01/10/21 07:58 35.0 63 115/65 (82) 97 Vapotherm 30.00 70.00 01/10/21 07:12 70 01/09/21 16:12 20 Physical Exam The patient was not seen or examined due to her Covid status. Labs Laboratory Tests Test 01/09/21 11:10 01/09/21 17:20 01/09/21 20:00 01/10/21 01:50 Range/Units Glucometer 225 H 146 H 163 H 70-110 MG/DL White Blood Count 10.1 4.3-11.0 10^3/uL Red Blood Count 3.35 L 3.80-5.11 10^6/uL Hemoglobin 10.0 L 11.5-16.0 g/dL Hematocrit 31 L 35-52 % Mean Corpuscular Volume 92 80-99 fL Mean Corpuscular Hemoglobin 30 25-34 pg Mean Corpuscular Hemoglobin Concent 33 32-36 g/dL Red Cell Distribution Width 14.2 10.0-14.5 % Platelet Count 236 130-400 10^3/uL Mean Platelet Volume 9.6 9.0-12.2 fL Immature Granulocyte % (Auto) 2 % Neutrophils (%) (Auto) 65 42-75 % Lymphocytes (%) (Auto) 26 12-44 % Monocytes (%) (Auto) 6 0-12 % Eosinophils (%) (Auto) 1 0-10 % Basophils (%) (Auto) 0 0-10 % Neutrophils # (Auto) 6.5 1.8-7.8 X 10^3 Lymphocytes # (Auto) 2.6 1.0-4.0 X 10^3 Monocytes # (Auto) 0.6 0.0-1.0 X 10^3 Eosinophils # (Auto) 0.1 0.0-0.3 10^3/uL Basophils # (Auto) 0.0 0.0-0.1 10^3/uL Immature Granulocyte # (Auto) 0.2 H 0.0-0.1 10^3/uL Sodium Level 141 135-145 MMOL/L Potassium Level 3.9 3.6-5.0 MMOL/L Chloride Level 103 98-107 MMOL/L Carbon Dioxide Level 28 21-32 MMOL/L Anion Gap 10 5-14 MMOL/L Blood Urea Nitrogen 21 H 7-18 MG/DL Creatinine 0.79 0.60-1.30 MG/DL Estimat Glomerular Filtration Rate 74 BUN/Creatinine Ratio 27 Glucose Level 108 H 70-105 MG/DL Calcium Level 8.3 L 8.5-10.1 MG/DL Corrected Calcium 8.9 8.5-10.1 MG/DL Magnesium Level 1.9 1.6-2.4 MG/DL Total Bilirubin 0.5 0.1-1.0 MG/DL Aspartate Amino Transf (AST/SGOT) 25 5-34 U/L Alanine Aminotransferase (ALT/SGPT) 29 0-55 U/L Alkaline Phosphatase 99 40-136 U/L Total Protein 5.8 L 6.4-8.2 GM/DL Albumin 3.2 3.2-4.5 GM/DL Test 01/10/21 05:30 Range/Units Glucometer 94 70-110 MG/DL Diagnosis/Problems Diagnosis/Problems (1) Paroxysmal atrial fibrillation Assessment & Plan: No further atrial fibrillation since starting metoprolol. Continue apixaban started for stroke prophylaxis. If she starts to have recurrent episodes of atrial fibrillation, we may want to consider a short course of antiarrhythmic drug therapy. Once she is discharged to home, she will need outpatient cardiology follow-up and an echocardiogram would be helpful after she is treated for the Covid. I suspect the atrial fibrillation may have been brought on by the acute pulmonary illness. She may not need life long anticoagulation but it is too early to tell. (2) Morbid obesity Status: Chronic Assessment & Plan: She needs to work on weight loss not only to help reduce the risk of recurrent atrial fibrillation but to help reduce the risk of other complications related to obesity. CONI LEWIS JR, MD Jan 10, 2021 09:44
--- NOTE | 2021-01-10 09:47 | Progress Note - Hospitalist ---
Subjective HPI/CC On Admission Date Seen by Provider: Jan 10, 2021 Time Seen by Provider: 09:45 Ilana Camara is a 60-year-old female with past medical history of anxiety, depression, COPD, alcohol abuse, who presented with shortness of breath. She has been short of breath for several days. She has also had a cough. She denies any fevers or chills. She denies any abdominal pain. She denies any nausea or vomiting. She has not had diarrhea. She denies chest pain. She did not get the Covid vaccine. She does not know of any sick contacts. She has been drinking heavily recently. Subjective/Events-last exam Pt reports feeling much better today. No complaints.Was satting 100% when I entered the room and I titrated vapotherm setting down. Objective Exam Vital Signs Vital Signs Date Time Temp Pulse Resp B/P (MAP) Pulse Ox O2 Delivery O2 Flow Rate FiO2 01/10/21 07:58 35.0 63 115/65 (82) 97 Vapotherm 30.00 70.00 01/10/21 07:12 70 01/09/21 16:12 20 Capillary Refill : Less Than 3 Seconds General Appearance: No Apparent Distress, Chronically ill, Obese Respiratory: No Accessory Muscle Use, Decreased Breath Sounds, Other (Vapotherm 30lpm at 60%) Cardiovascular: Regular Rate, Rhythm, No Murmur Gastrointestinal: Normal Bowel Sounds, Non Tender, Soft Neurologic/Psychiatric: Alert, Oriented x3 Results/Procedures Lab Laboratory Tests 01/10/21 01:50 Patient resulted labs reviewed. Imaging: Reviewed Imaging Report Assessment/Plan Assessment and Plan Assess & Plan/Chief Complaint Acute respiratory failure due to COVID-19 COPD On Vapotherm, encouraged continued OOB/IS, continue to titrate down, may be able to transfer to 4th floor soon Covid positive on admission 01/01, symptoms started a few days prior Chest x-ray consistent with Covid, bilateral infiltrates Ddimer was elevated but stable, Continue ppx lovenox Continue abx MAT protocol Continue Decadron received Actemra Cannot tolerating proning TeleICU consulted, appreciate assistance Acute alcohol intoxication Alcohol abuse Reports remote history of withdrawal Denies every day alcohol use at this time No evidence of withdrawal Anxiety Depression Continue home meds- resumed per med rec Morbid obesity hyperglycemia Clinically significant, no acute management needs DVT prophylaxis: Lovenox Critical Care Critically Ill Patient QUINN KENT MD Jan 10, 2021 09:47
[2021-01-10 12:15] VITALS: BP 108/56
[2021-01-10 20:59] VITALS: BP 156/88
[2021-01-10] MEDS: RT-ALBUTEROL INHALER HFA (VENTOLIN HFA) 18 GM IH PRN (21:10)
[2021-01-10] MEDS: MELATONIN 3 MG TABLET PO PRN (21:44)
[2021-01-10] MEDS: QUEtiapine 200 MG (SEROquel) TAB IMMEDIATE RELEASE PO SCH (22:44)
[2021-01-11 00:08] VITALS: BP 134/83
[2021-01-11] MEDS: ACETAMINOPHEN 325 MG TABLET PO PRN (02:11)
[2021-01-11 03:41] VITALS: BP 109/68
[2021-01-11 05:25] LABS: ALBUMIN 3.3 GM/DL (3.2-4.5); POTASSIUM 3.9 MMOL/L (3.6-5.0)
[2021-01-11 05:26] LABS: CALCIUM 8.7 MG/DL (8.5-10.1)
[2021-01-11 05:28] LABS: TOTAL PROTEIN 5.7 GM/DL (6.4-8.2)
[2021-01-11 05:29] LABS: BILIRUBIN,TOTAL 0.5 MG/DL (0.1-1.0)
[2021-01-11 05:31] LABS: CREATININE SERUM 0.97 MG/DL (0.60-1.30)
[2021-01-11 05:34] LABS: MAGNESIUM 2.1 MG/DL (1.6-2.4)
[2021-01-11] MEDS: inSUlin ASPART (NovoLOG) 1 UNIT/0.01 ML (CHARGE PER UNIT) SC SCH ×3 (05:34→16:31)
[2021-01-11] MEDS: dexAMETHasone 6 MG TAB (DECADRON) PO SCH (06:20)
[2021-01-11 07:07] LABS: BASOPHILS % (AUTO) 0 % (0-10); EOSINOPHILS # (AUTO) 0.1 10^3/uL (0.0-0.3); EOSINOPHILS % (AUTO) 1 % (0-10); HEMATOCRIT 33 % (35-52); HEMOGLOBIN 10.2 g/dL (11.5-16.0); LYMPHOCYTES # (AUTO) 3.1 10^3/uL (1.0-4.0); LYMPHOCYTES % (AUTO) 30 % (12-44); MEAN CORPUSCULAR HEMOGLOBIN 29 pg (25-34); MEAN CORPUSCULAR HGB CONC 31 g/dL (32-36); MEAN CORPUSCULAR VOLUME 92 fL (80-99); MEAN PLATELET VOLUME 10.1 fL (9.0-12.2); MONOCYTES # (AUTO) 0.6 10^3/uL (0.0-1.0); MONOCYTES % (AUTO) 6 % (0-12); NEUTROPHILS # (AUTO) 6.2 10^3/uL (1.8-7.8); NEUTROPHILS % (AUTO) 61 % (42-75); PLATELET COUNT 265 10^3/uL (130-400); WHITE BLOOD COUNT 10.2 10^3/uL (4.3-11.0)
--- NOTE | 2021-01-11 07:52 | Physical Therapy Progress Note ---
Therapy Progress Note Patient currently on Vapotherm and is up with nursing staff SBA to independent. PT will require new orders due to transfer. MAGDI LEIGH PT Jan 11, 2021 07:52
[2021-01-11 08:54] VITALS: BP 135/65
[2021-01-11] MEDS: APIXABAN 5 MG (ELIQUIS) TABLET PO SCH (09:09)
[2021-01-11] MEDS: DOCUSATE SODIUM 100 MG (COLACE) CAP PO SCH (09:09)
[2021-01-11] MEDS: SENNOSIDES 8.6 MG (SENOKOT) TAB PO SCH (09:09)
[2021-01-11] MEDS: PRAMIPEXOLE 0.5 MG TAB (MIRAPEX) PO SCH (09:09)
[2021-01-11] MEDS: meTOprolol TARTRATE 25 MG (LOPRESSOR) TABLET PO SCH (09:09)
[2021-01-11] MEDS: QUEtiapine 100 MG (SEROquel) TAB IMMEDIATE RELEASE PO SCH (09:09)
[2021-01-11] MEDS: RT-ALBUTEROL INHALER HFA (VENTOLIN HFA) 18 GM IH SCH ×4 (09:32→15:10)
--- NOTE | 2021-01-11 09:52 | Cardiology Progress Note ---
Progress Note-Cardiology Events since last exam Date Seen by Provider: Jan 11, 2021 Time Seen by Provider: 09:50 Events since last exam We are following the patient for paroxysmal atrial fibrillation. I did not see the patient today due to her Covid status.Last evening she was transferred from the ICU to the medical floor. Her telemetry monitoring was inadvertently discontinued although the order is still in place. I asked the nurses to get her back on telemetry. Certain portions of this document may have been dictated utilizing voice recognition technology. Inherent to this technology, typographical and grammatical errors may exist. As much as I am diligent to identify and correct these mistakes, some errors may remain in the document. Vitals Last set of Vitals Signs Vital Signs 01/10/21 01/11/21 01/11/21 14:48 08:54 09:33 Temp 36.3 Pulse 76 Resp 20 B/P (MAP) 135/65 (88) Pulse Ox 96 O2 Delivery Nasal Cannula O2 Flow Rate 4.00 FiO2 70 Labs Labs Laboratory Tests 01/11/21 04:35 01/11/21 06:30 Exam Vital Signs Vital Signs Date Time Temp Pulse Resp B/P (MAP) Pulse Ox O2 Delivery O2 Flow Rate FiO2 01/11/21 09:33 Nasal Cannula 4.00 01/11/21 08:54 36.3 76 20 135/65 (88) 96 01/10/21 14:48 70 Physical Exam The patient was not examined today due to her Covid status. Labs Laboratory Tests Test 01/10/21 10:28 01/10/21 11:39 01/10/21 15:58 01/10/21 21:43 Range/Units Glucometer 208 H 130 H 167 H 105 70-110 MG/DL Test 01/11/21 04:35 01/11/21 06:30 Range/Units Sodium Level 143 135-145 MMOL/L Potassium Level 3.9 3.6-5.0 MMOL/L Chloride Level 102 98-107 MMOL/L Carbon Dioxide Level 28 21-32 MMOL/L Anion Gap 13 5-14 MMOL/L Blood Urea Nitrogen 24 H 7-18 MG/DL Creatinine 0.97 0.60-1.30 MG/DL Estimat Glomerular Filtration Rate 58 BUN/Creatinine Ratio 25 Glucose Level 91 70-105 MG/DL Calcium Level 8.7 8.5-10.1 MG/DL Corrected Calcium 9.3 8.5-10.1 MG/DL Magnesium Level 2.1 1.6-2.4 MG/DL Total Bilirubin 0.5 0.1-1.0 MG/DL Aspartate Amino Transf (AST/SGOT) 20 5-34 U/L Alanine Aminotransferase (ALT/SGPT) 23 0-55 U/L Alkaline Phosphatase 87 40-136 U/L Total Protein 5.7 L 6.4-8.2 GM/DL Albumin 3.3 3.2-4.5 GM/DL White Blood Count 10.2 4.3-11.0 10^3/uL Red Blood Count 3.54 L 3.80-5.11 10^6/uL Hemoglobin 10.2 L 11.5-16.0 g/dL Hematocrit 33 L 35-52 % Mean Corpuscular Volume 92 80-99 fL Mean Corpuscular Hemoglobin 29 25-34 pg Mean Corpuscular Hemoglobin Concent 31 L 32-36 g/dL Red Cell Distribution Width 14.3 10.0-14.5 % Platelet Count 265 130-400 10^3/uL Mean Platelet Volume 10.1 9.0-12.2 fL Immature Granulocyte % (Auto) 2 % Neutrophils (%) (Auto) 61 42-75 % Lymphocytes (%) (Auto) 30 12-44 % Monocytes (%) (Auto) 6 0-12 % Eosinophils (%) (Auto) 1 0-10 % Basophils (%) (Auto) 0 0-10 % Neutrophils # (Auto) 6.2 1.8-7.8 10^3/uL Lymphocytes # (Auto) 3.1 1.0-4.0 10^3/uL Monocytes # (Auto) 0.6 0.0-1.0 10^3/uL Eosinophils # (Auto) 0.1 0.0-0.3 10^3/uL Basophils # (Auto) 0.0 0.0-0.1 10^3/uL Immature Granulocyte # (Auto) 0.2 H 0.0-0.1 10^3/uL Diagnosis/Problems Diagnosis/Problems (1) Paroxysmal atrial fibrillation Assessment & Plan: No further atrial fibrillation since starting metoprolol although she has been off telemetry since last night. I have asked the nurses to get her back on telemetry and I also ordered an electrocardiogram for this morning. Continue apixaban for stroke prophylaxis. If she starts to have recurrent episodes of atrial fibrillation, we may want to consider a short course of antiarrhythmic drug therapy. Once she is discharged to home, she will need outpatient cardiology follow-up and an echocardiogram would be helpful after she is treated for the Covid. I suspect the atrial fibrillation may have been brought on by the acute pulmonary illness. She may not need life long anticoagulation but it is too early to tell. (2) Morbid obesity Status: Chronic Assessment & Plan: She needs to work on weight loss not only to help reduce the risk of recurrent atrial fibrillation but to help reduce the risk of other complications related to obesity. CONI LEWIS JR, MD Jan 11, 2021 09:52
[2021-01-11] MEDS ORDERED: METO-333 PO (11:30)
[2021-01-11] MEDS ORDERED: APIX5TAB PO (11:30)
[2021-01-11] MEDS ORDERED: ESCI20TA PO (11:56)
[2021-01-11] MEDS ORDERED: ALPR0.5T PO (11:56)
[2021-01-11] MEDS ORDERED: PRAM0.5T2 PO (11:56)
[2021-01-11] MEDS ORDERED: HYDR-3817 PO (11:56)
[2021-01-11] MEDS ORDERED: QUET50TA PO (11:56)
[2021-01-11] MEDS ORDERED: QUET400T PO (11:56)
[2021-01-11 12:10] VITALS: BP 115/62
--- NOTE | 2021-01-11 17:04 | Discharge Summary ---
Discharge Summary Hospital Course Problems/Dx: (1) Acute respiratory failure due to COVID-19 Status: Acute (2) Acute alcohol intoxication Status: Acute Qualifiers: Qualified Codes: F10.920 - Alcohol use, unspecified with intoxication, uncomplicated (3) Anxiety and depression Status: Chronic (4) Paroxysmal atrial fibrillation Status: Acute (5) Morbid obesity Status: Chronic Hospital Course Date of Admission: Jan 01, 2021 at 22:16 Admission Diagnosis : Acute respiratory failure due to COVID-19 Family Physician/Provider: JeanetteLocal Physician Date of Discharge: 01/11/21 Discharge Diagnosis: Acute respiratory failure due to COVID-19 Hospital Course: Ilana Durán is a 60-year-old female who presented with shortness of breath and was admitted with acute respiratory failure due to COVID-19. She was also found to be acutely intoxicated with alcohol. She was treated with Decadron and Actemra. He was requiring high flow oxygen Via Vapotherm. This improved and she was transitioned to nasal cannula. An oxygen evaluation done at the time of discharge found her to need 4 L continuously. Her course was complicated by a bacterial pneumonia and she received a course of antibiotics. She does not have a local physician. She needs to establish care with a primary care physician and a follow-up appointment was scheduled at the [facility]. She was discharged home in stable condition. Labs and Pending Lab Test: Laboratory Tests 01/10/21 21:43: Glucometer 105 01/11/21 04:35: Sodium Level 143, Potassium Level 3.9, Chloride Level 102, Carbon Dioxide Level 28, Anion Gap 13, Blood Urea Nitrogen 24H, Creatinine 0.97, Estimat Glomerular Filtration Rate 58, BUN/Creatinine Ratio 25, Glucose Level 91, Calcium Level 8.7, Corrected Calcium 9.3, Magnesium Level 2.1, Total Bilirubin 0.5, Aspartate Amino Transf (AST/SGOT) 20, Alanine Aminotransferase (ALT/SGPT) 23, Alkaline Phosphatase 87, Total Protein 5.7L, Albumin 3.3 01/11/21 06:30: White Blood Count 10.2, Red Blood Count 3.54L, Hemoglobin 10.2L, Hematocrit 33L, Mean Corpuscular Volume 92, Mean Corpuscular Hemoglobin 29, Mean Corpuscular Hemoglobin Concent 31L, Red Cell Distribution Width 14.3, Platelet Count 265, Mean Platelet Volume 10.1, Immature Granulocyte % (Auto) 2, Neutrophils (%) (Auto) 61, Lymphocytes (%) (Auto) 30, Monocytes (%) (Auto) 6, Eosinophils (%) (Auto) 1, Basophils (%) (Auto) 0, Neutrophils # (Auto) 6.2, Lymphocytes # (Auto) 3.1, Monocytes # (Auto) 0.6, Eosinophils # (Auto) 0.1, Basophils # (Auto) 0.0, Immature Granulocyte # (Auto) 0.2H 01/11/21 10:51: Glucometer 127H Home Meds Active Lexapro (Escitalopram Oxalate) 20 Mg Tablet 20 Mg PO DAILY 30 Days Seroquel (Quetiapine Fumarate) 400 Mg Tablet 400 Mg PO HS 30 Days Seroquel (Quetiapine Fumarate) 50 Mg Tablet 50 Mg PO 0800,1300 30 Days Mirapex (Pramipexole Di-HCl) 0.5 Mg Tablet 0.5 Mg PO QID 30 Days Hydrocodone-Acetamin 7.5-325 (Hydrocodone/Acetaminophen) 1 Each Tablet 1 Each PO BID 7 Days Xanax (Alprazolam) 0.5 Mg Tablet 0.5 Mg PO HS 30 Days Metoprolol Tartrate 25 Mg Tablet 25 Mg PO BID 30 Days Eliquis (Apixaban) 5 Mg Tablet 5 Mg PO BID 30 Days Assessment/Pt Instructions Take medications as prescribed. Establish care with a primary care physician. Return with worsening shortness of breath or if you feel like you are getting worse. Discharge Planning: >30 minutes discharge planning Discharge Instructions Discharge Diet: No Restrictions Activity as Tolerated: Yes Consultations Cardiology, pulmonology Discharge Physical Examination Vital Signs Vital Signs Date Time Temp Pulse Resp B/P (MAP) Pulse Ox O2 Delivery O2 Flow Rate FiO2 01/11/21 15:10 95 Nasal Cannula 4.00 01/11/21 15:03 92 01/11/21 12:10 36.1 12 115/62 (79) 01/10/21 14:48 70 Allergies: Coded Allergies: No Known Drug Allergies (Unverified , 01/01/21) Copy Copies To 1: [facility] [place] Summary Date of Admission Jan 01, 2021 at 22:16 Date of Discharge Discharge Date: Jan 11, 2021 Discharge Time: 17:05 Admission Diagnosis Acute respiratory failure due to COVID-19 Consults/Procedures Consulations Cardiology, pulmonology Discharge Diagnosis Acute respiratory failure due to COVID-19 (1) Acute respiratory failure due to COVID-19 Status: Acute (2) Acute alcohol intoxication Status: Acute Qualifiers: Qualified Codes: F10.920 - Alcohol use, unspecified with intoxication, uncomplicated (3) Anxiety and depression Status: Chronic (4) Paroxysmal atrial fibrillation Status: Acute (5) Morbid obesity Status: Chronic CARMEL ARELLANO MD Jan 11, 2021 17:04
[2021-01-11 18:34] VITALS: BP 115/62
== END 2021-01-11 18:35 | disposition home or self-care (01) | DRG 177 ==
LOC: ER FS 14:02 → 4TH 17:30 → OBSVTOIN 22:16 → 4TH 01-03 10:36 → ICU 01-03 14:53 → 4TH 01-03 16:29 → ICU 01-04 12:25 → CSD 01-08 18:42 → 4TH 01-10 21:15
PROVIDERS: ADMIT Internal Medicine; ATTEND Internal Medicine
PROC: 5A09457 Assistance with Respiratory Ventilation, 24-96 Consecutive Hours, Continuous Positive Airway Pressure (ICD-10-PCS; 2021-01-03)
PROC: XW033E5 Introduction of Remdesivir Anti-infective into Peripheral Vein, Percutaneous Approach, New Technology Group 5 (ICD-10-PCS; principal; 2021-01-04)
PROC: XW13325 Transfusion of Convalescent Plasma (Nonautologous) into Peripheral Vein, Percutaneous Approach, New Technology Group 5 (ICD-10-PCS; 2021-01-04)
DX: U07.1 COVID-19 (principal); J96.01 Acute respiratory failure with hypoxia; J81.0 Acute pulmonary edema; J12.82 Pneumonia due to coronavirus disease 2019; J15.9 Unspecified bacterial pneumonia; Z68.41 Body mass index [BMI] 40.0-44.9, adult; E87.2 Acidosis; J44.0 Chronic obstructive pulmonary disease with (acute) lower respiratory infection; D68.59 Other primary thrombophilia; F10.129 Alcohol abuse with intoxication, unspecified; E66.01 Morbid (severe) obesity due to excess calories; F41.9 Anxiety disorder, unspecified; F32.9 Major depressive disorder, single episode, unspecified; R73.9 Hyperglycemia, unspecified; I48.0 Paroxysmal atrial fibrillation
CPT/HCPCS: 36415; 36569; 71045; 76937; 80048; 80053; 80306; 80320; 81000; 82947; 83036; 83605; 83735; 84145; 85025; 85379; 86141; 86900; 86901; 87636; 93005; 94640; 94660; 94760; 94761; 96365; 96375; G0378

== ENCOUNTER 2021-04-07 23:44 | Emergency (ER) | payer SELFPAY ==
[~2021-04-07] VITALS: Ht 165 cm; Wt 107.0 kg
[~2021-04-07 23:44] MED LIST: ALPR0.5T PO; APIX5TAB PO; ESCI20TA PO; HYDR-3817 PO; METO-333 PO; MTP25TSR PO; PRAM0.5T2 PO; QUET100T PO; QUET400T PO; QUET50TA PO
--- NOTE | 2021-04-08 00:37 | ED Chest Pain ---
General Chief Complaint: Cardiac/General Problems Stated Complaint: CHEST PAIN Source: patient Exam Limitations: no limitations History of Present Illness Date Seen by Provider: Apr 08, 2021 Time Seen by Provider: 11:45 Initial Comments 60yoF with past medical history of paroxysmal A. fib on Eliquis, bipolar disorder, and previous gastric bypass coming in due to intermittent sharp substernal chest pain that started earlier this morning. Lasts a couple minutes at a time and is not having much right now. Nothing seems to make the pain better or worse. Denies ever having pain like this before. Has some associated nausea but no vomiting. Also states that she feels like she is going "crazy" and that she started hearing voices earlier today. The voices sound like her family that lives with her, but when she got up to check if they were there they were not. Of note, she says she had COVID this summer and since then has had more medical problems then ever before. Wears 1.5L O2 at home intermittently. Has been taking a lot of vitamins to try to helps including a lot of extra vitamin D. Allergies: NKDA Meds: eliquis, metoprolol, seroquel, vitamin D, mirapex, hydrocodone PMH: denies h/o blood clots or cardiac disease PSH: lap appendectomy, cholecystectomy, gastric bypass SH: denies smoking or drug use, alcohol use rarely Allergies and Home Medications Allergies Coded Allergies: No Known Drug Allergies (Unverified , 01/01/21) Patient Home Medication List Home Medication List Reviewed: Yes Alprazolam (Xanax) 0.5 Mg Tablet, 0.5 MG PO HS Prescribed by: CARMEL ARELLANO on 01/11/21 1157 Apixaban (Eliquis) 5 Mg Tablet, 5 MG PO BID Prescribed by: CARMEL ARELLANO on 01/11/21 1130 Escitalopram Oxalate (Lexapro) 20 Mg Tablet, 20 MG PO DAILY Prescribed by: CARMEL ARELLANO on 01/11/21 1156 Hydrocodone/Acetaminophen (Hydrocodone-Acetamin 7.5-325) 1 Each Tablet, 1 EACH PO BID Prescribed by: CARMEL ARELLANO on 01/11/21 1157 Metoprolol Tartrate (Metoprolol Tartrate) 25 Mg Tablet, 25 MG PO BID Prescribed by: CARMEL ARELLANO on 01/11/21 1130 Pramipexole Di-HCl (Mirapex) 0.5 Mg Tablet, 0.5 MG PO QID Prescribed by: CARMEL ARELLANO on 01/11/21 1156 Quetiapine Fumarate (Seroquel) 50 Mg Tablet, 50 MG PO 0800,1300 Prescribed by: CARMEL ARELLANO on 01/11/21 1156 Quetiapine Fumarate (Seroquel) 400 Mg Tablet, 400 MG PO HS Prescribed by: CARMEL ARELLANO on 01/11/21 1156 Review of Systems Review of Systems Constitutional: No chills, No fever EENTM: No Blurred Vision Respiratory: Denies Cough, Denies Shortness of Air Cardiovascular: Chest Pain; Denies Lightheadedness; Palpitations; Denies Syncope Gastrointestinal: Abdominal Pain; Denies Diarrhea; Nausea; Denies Vomiting Genitourinary: No Symptoms Reported Musculoskeletal: no symptoms reported Skin: no symptoms reported Psychiatric/Neurological: No Symptoms Reported Endocrine: No Symptoms Reported Hematologic/Lymphatic: No Symptoms Reported All Other Systems Reviewed Negative Unless Noted: Yes Past Udhasdq-[id number]-Ktgemj Hx Patient Social History Tobacco Use?: No Substance use?: No Alcohol Use?: Yes Alcohol Frequency: Once in a while Past Medical History Surgeries: Yes Abdominal (gastric bypass), Appendectomy, Gallbladder Family Medical History No Pertinent Family Hx Physical Exam Vital Signs Vital Signs - First Documented 04/07/21 23:45 Temp 36.7 Pulse 100 Resp 19 B/P (MAP) 190/87 (121) Pulse Ox 98 O2 Delivery Room Air Capillary Refill : Height, Weight, BMI Height: '" Weight: lbs. oz. kg; 39.95 BMI Method: General Appearance: No Apparent Distress, WD/WN HEENT: PERRL/EOMI, Normal ENT Inspection, Pharynx Normal Neck: Full Range of Motion, Normal Inspection, Non Tender, Supple Respiratory: Chest Non Tender, Lungs Clear, Normal Breath Sounds, No Accessory Muscle Use, No Respiratory Distress Cardiovascular: Regular Rate, Rhythm, No Edema, Normal Peripheral Pulses Gastrointestinal: Normal Bowel Sounds, Non Tender, Soft; No Guarding Extremity: Normal Capillary Refill, Normal Inspection, Normal Range of Motion, Non Tender, No Calf Tenderness, No Pedal Edema Neurologic/Psychiatric: Alert, Oriented x3, No Motor/Sensory Deficits, Normal Mood/Affect, barrel inspector tight II-XII Norm as Tested, Other (denies hallucinations currently) Skin: Normal Color, Warm/Dry Lymphatic: No Adenopathy Progress/Results/Core Measures Results/Orders Lab Results Laboratory Tests Test 04/08/21 00:03 04/08/21 01:38 Range/Units White Blood Count 6.6 4.3-11.0 10^3/uL Red Blood Count 4.47 3.80-5.11 10^6/uL Hemoglobin 14.1 11.5-16.0 g/dL Hematocrit 41 35-52 % Mean Corpuscular Volume 92 80-99 fL Mean Corpuscular Hemoglobin 32 25-34 pg Mean Corpuscular Hemoglobin Concent 34 32-36 g/dL Red Cell Distribution Width 14.8 H 10.0-14.5 % Platelet Count 126 L 130-400 10^3/uL Mean Platelet Volume 10.9 9.0-12.2 fL Immature Granulocyte % (Auto) 0 % Neutrophils (%) (Auto) 49 42-75 % Lymphocytes (%) (Auto) 43 12-44 % Monocytes (%) (Auto) 7 0-12 % Eosinophils (%) (Auto) 1 0-10 % Basophils (%) (Auto) 0 0-10 % Neutrophils # (Auto) 3.2 1.8-7.8 X 10^3 Lymphocytes # (Auto) 2.8 1.0-4.0 X 10^3 Monocytes # (Auto) 0.5 0.0-1.0 X 10^3 Eosinophils # (Auto) 0.0 0.0-0.3 10^3/uL Basophils # (Auto) 0.0 0.0-0.1 10^3/uL Immature Granulocyte # (Auto) 0.0 0.0-0.1 10^3/uL Prothrombin Time 15.2 H 12.2-14.7 SEC INR Comment 1.2 0.8-1.4 Activated Partial Thromboplast Time 28 24-35 SEC Sodium Level 136 135-145 MMOL/L Potassium Level 3.7 3.6-5.0 MMOL/L Chloride Level 99 98-107 MMOL/L Carbon Dioxide Level 23 21-32 MMOL/L Anion Gap 14 5-14 MMOL/L Blood Urea Nitrogen 16 7-18 MG/DL Creatinine 0.90 0.60-1.30 MG/DL Estimat Glomerular Filtration Rate 64 BUN/Creatinine Ratio 18 Glucose Level 138 H 70-105 MG/DL Calcium Level 9.1 8.5-10.1 MG/DL Corrected Calcium 8.7 8.5-10.1 MG/DL Total Bilirubin 1.8 H 0.1-1.0 MG/DL Aspartate Amino Transf (AST/SGOT) 35 H 5-34 U/L Alanine Aminotransferase (ALT/SGPT) 21 0-55 U/L Alkaline Phosphatase 79 40-136 U/L Troponin I < 0.30 < 0.30 <0.30 NG/ML Pro-B-Type Natriuretic Peptide 495.3 H <75.0 PG/ML Total Protein 7.4 6.4-8.2 GM/DL Albumin 4.5 3.2-4.5 GM/DL Lipase 36 8-78 U/L My Orders Orders - SARA HAM MD Nitroglycerin Ointment (Nitrobid Ointme (04/08/21 00:45) Aspirin Chewable Tablet (Baby Aspirin Ch (04/08/21 00:45) Antacid Suspension (Mylanta Suspension (04/08/21 00:45) Chest 1 View Ap/Pa Only (04/08/21 ) Ct Abdomen/Pelvis W (04/08/21 01:06) Troponin I Fs (04/08/21 01:40) Iohexol Injection (Omnipaque 350 Mg/Ml 1 (04/08/21 01:30) Received Contrast (Hold Metformin- Contr (04/08/21 01:30) Sodium Chloride Flush (Catheter Flush Sy (04/08/21 01:30) Ns (Ivpb) (Sodium Chloride 0.9% Ivpb Bag (04/08/21 01:30) Cbc With Automated Diff (04/08/21 00:03) Protime With Inr (04/08/21 00:03) Partial Thromboplastin Time (04/08/21 00:03) Comprehensive Metabolic Panel (04/08/21 00:03) Lipase (04/08/21 00:03) Probnp Fs (04/08/21 00:03) Troponin I Fs (04/08/21 00:03) Hydrocodone/Apap 10/325 Tablet (Lortab 1 (04/08/21 01:45) Iohexol Injection (Omnipaque 350 Mg/Ml 1 (04/08/21 02:00) Received Contrast (Hold Metformin- Contr (04/08/21 02:00) Sodium Chloride Flush (Catheter Flush Sy (04/08/21 02:00) Ns (Ivpb) (Sodium Chloride 0.9% Ivpb Bag (04/08/21 02:00) Medications Given in ED Current Medications Medications Dose Ordered Sig/Gallito Route Start Time Stop Time Status Last Admin Dose Admin Acetaminophen/ Hydrocodone Bitart 1 ea ONCE ONCE PO 04/08/21 01:45 04/08/21 01:46 DC 04/08/21 01:46 1 EA Al Hydrox/Mg Hydrox/Simethicone 30 ml ONCE ONCE PO 04/08/21 00:45 04/08/21 00:46 DC 04/08/21 00:24 30 ML Aspirin 324 mg ONCE ONCE PO 04/08/21 00:45 04/08/21 00:46 DC 04/08/21 00:20 324 MG Nitroglycerin 1 inch ONCE ONCE TOP 04/08/21 00:45 04/08/21 00:46 DC 04/08/21 00:22 1 INCH Vital Signs/I&O 04/07/21 23:45 Temp 36.7 Pulse 100 Resp 19 B/P (MAP) 190/87 (121) Pulse Ox 98 O2 Delivery Room Air Progress Progress Note : Progress Note 60-year-old female with above history coming in due to multiple issues most notably intermittent chest pain with intermittent abdominal pain and hallucinations earlier that she is not currently having. ABCs were intact and vitals were stable on presentation. She does have paroxysmal A. fib but is sinus rhythm currently. She is on metoprolol and Eliquis for this and has not missed any doses. Most notably in her history she has been taking a lot of vitamin D and I am mostly concerned she could have hypercalcemia causing double symptoms. IV was placed and basic labs were obtained including cardiac biomarkers. Labs significant for normal white blood count, normal creatinine, slightly elevated bilirubin at 1.8, barely elevated AST at 35. Troponin is negative x2. On reassessment she is having more vague abdominal pain and given her previous surgeries CT abdomen and pelvis ordered which was negative for any obstruction. Her common bile duct was 17 mm with previous study being 15 mm. This is not a significant change. On reassessment her pain had almost completely resolved. I discussed her liver enzymes and recommended she get repeat labs within the next week or so which she is agreeable to. I believe she is stable for discharge. She was sent home with strict return precautions. At the time of discharge, she is also not having any hallucinations. Initial ECG Impression Date: Apr 08, 2021 Initial ECG Impression Time: 23:47 Initial ECG Rate: 101 Initial ECG Rhythm: Normal Sinus Comment Narrow QRS, normal axis, no significant ST changes or T wave abnormalities, baseline wander in multiple leads Diagnostic Imaging Diagonstic Imaging: CT Plain Films/CT/US/NM/MRI: abdomen, pelvis Comments Reviewed the [facility] read showing, bile duct of 17 mm previously measuring 15 mm, no bowel obstruction Departure Impression Primary Impression: Chest pain Qualified Codes: R07.9 - Chest pain, unspecified Additional Impressions: Abdominal pain Qualified Codes: R10.11 - Right upper quadrant pain Common bile duct dilatation Disposition: 01 HOME, SELF-CARE Condition: Stable Departure-Patient Inst. Decision time for Depature: 03:11 Referrals: NO,LOCAL PHYSICIAN (PCP/Family) Primary Care Physician Patient Instructions: Chest Pain (DC), Abdominal Pain, Adult ED Add. Discharge Instructions: You are seen in the emergency department for chest pain as well as intermittent abdominal pain. Your labs are reassuring and it does not appear like you had a heart attack. We did a CT of your abdomen and pelvis and we do not see any acute findings that would cause the pain you are experiencing. Your common bile duct was 17mm which is slightly enlarged, and previously it was 15mm. This is not a significant difference. Your total bilirubin was slighlty elevated at 1.8 (normal is 1) and AST very slightly elevated at 35 (another liver enzyme). I recommend you show this to yor primary care doctor and have repeat labs done soon to make sure they are trending in the right direction. In regards to the hallucinations that you are hearing voices, if this continues I would recommend calling your primary care doctor for potential psychiatric evaluation, but if it never happens again it is possible you are just under a lot of stress on the moment. If you have any concerns then please come back to the ER. SARA HAM MD Apr 08, 2021 00:37
[2021-04-08] MEDS ORDERED: ASPIRIN 81 MG CHEW (CHILDREN'S ASA) PO ONE (00:45)
[2021-04-08] MEDS ORDERED: ANTACID SUSP 30 ML UDC (MYLANTA) PO ONE (00:45)
[2021-04-08] MEDS ORDERED: NITROGLYCERIN 2% OINT 1 GM UNIT DOSE PACKET TOP ONE (00:45)
[2021-04-08 01:22] LABS: HEMATOCRIT 41 % (35-52); HEMOGLOBIN 14.1 g/dL (11.5-16.0); MEAN CORPUSCULAR VOLUME 92 fL (80-99); WHITE BLOOD COUNT 6.6 10^3/uL (4.3-11.0)
[2021-04-08 01:23] LABS: BASOPHILS % (AUTO) 0 % (0-10); EOSINOPHILS % (AUTO) 1 % (0-10); LYMPHOCYTES # (AUTO) 2.8 X 10^3 (1.0-4.0); LYMPHOCYTES % (AUTO) 43 % (12-44); MEAN CORPUSCULAR HEMOGLOBIN 32 pg (25-34); MEAN CORPUSCULAR HGB CONC 34 g/dL (32-36); MEAN PLATELET VOLUME 10.9 fL (9.0-12.2); MONOCYTES # (AUTO) 0.5 X 10^3 (0.0-1.0); MONOCYTES % (AUTO) 7 % (0-12); NEUTROPHILS # (AUTO) 3.2 X 10^3 (1.8-7.8); NEUTROPHILS % (AUTO) 49 % (42-75); PLATELET COUNT 126 10^3/uL (130-400)
[2021-04-08 01:25] LABS: ALANINE AMINOTRANSFERASE 21 U/L (0-55); ALKALINE PHOSPHATASE 79 U/L (40-136); BILIRUBIN,TOTAL 1.8 MG/DL (0.1-1.0); BUN/CREATININE RATIO 18; CALCIUM 9.1 MG/DL (8.5-10.1); CARBON DIOXIDE 23 MMOL/L (21-32); CHLORIDE 99 MMOL/L (98-107); GFR ESTIMATED 64; GLUCOSE 138 MG/DL (70-105); POTASSIUM 3.7 MMOL/L (3.6-5.0); SODIUM 136 MMOL/L (135-145)
[2021-04-08 01:26] LABS: LIPASE 36 U/L (8-78); TOTAL PROTEIN 7.4 GM/DL (6.4-8.2)
[2021-04-08 01:27] LABS: ALBUMIN 4.5 GM/DL (3.2-4.5); PROTHROMBIN TIME PATIENT 15.2 SEC (12.2-14.7)
[2021-04-08 01:28] LABS: INR 1.2 (0.8-1.4)
[2021-04-08] MEDS ORDERED: CATHETER FLUSH 10 ML SYR IV PRN ×2 (01:30→02:00)
[2021-04-08] MEDS ORDERED: NS 100 ML (IVPB) BAG IV ONE ×2 (01:30→02:00)
[2021-04-08] MEDS ORDERED: HOLD METFORMIN - RECEIVED CONTRAST 20 ML VIAL IV SCH ×2 (01:30→02:00)
[2021-04-08] MEDS ORDERED: IOHEXOL 350 MG/ML 100 ML (OMNIPAQUE 350) VIAL IV ONE ×2 (01:30→02:00)
[2021-04-08 03:29] VITALS: BP 168/86
--- NOTE | 2021-04-08 05:57 | Diagnostic Imaging Report ---
EXAMINATION: AP upright portable chest INDICATION: Chest pain. COMPARISON: Multiple priors, most recent performed on 01/07/2021. FINDINGS: Marked improvement in lung aeration compared to prior exam. There is mild linear scarring/atelectasis in left midlung. The lungs are otherwise clear and the pulmonary vasculature is normal. No pneumothorax or large pleural effusion. Heart size and mediastinal contours are normal. No acute osseous abnormality is identified. IMPRESSION: Marked improvement in lung aeration compared to prior exam. There is mild linear scarring/atelectasis in left midlung. Otherwise, no radiographic evidence of acute chest disease. Dictated by: Dictated on workstation # [id number]
--- NOTE | 2021-04-08 06:57 | Diagnostic Imaging Report ---
PROCEDURE: CT abdomen and pelvis with contrast. TECHNIQUE: Multiple contiguous axial images were obtained through the abdomen and pelvis after administration of intravenous contrast. Auto Exposure Controls were utilized during the CT exam to meet ALARA standards for radiation dose reduction. All CT scans use one or more of the following dose optimizing techniques: automated exposure control, MA and/or KvP adjustment based on patient size and exam type or iterative reconstruction. INDICATION: Right abdominal pain. COMPARISON: None available. FINDINGS: Focal linear consolidation in the inferior lingula laterally likely reflects atelectasis. The lung bases are otherwise clear. The heart is normal in size. The liver, spleen, pancreas and adrenal glands are unremarkable. The gallbladder is surgically absent. There is dilatation of the common bile duct, which measures up to 17 mm in diameter. No calcified choledocholithiasis. Kidneys are symmetric in size and demonstrate normal enhancement. There is no renal calculus or hydronephrosis on either side. No suspicious renal mass. The ureters are normal. Patient is status post gastric bypass surgery. There is suggestion of a small hiatal hernia. No abnormality at site of anastomosis in the left upper abdomen. There is no evidence of obstruction or bowel wall thickening. The appendix is not visualized and may be surgically absent. There is no pneumoperitoneum, abdominal free fluid or loculated collection. The bladder is normal. Uterus is unremarkable. No suspicious adnexal mass or pelvic free fluid is identified. There is mild calcified atherosclerotic plaque of the abdominal aorta, without aneurysmal dilatation. There is no evidence of venous thrombosis. There is a small fat-containing ventral wall hernia below the umbilicus just to the right of midline. There is a small amount of layering fluid in the hernia. Postsurgical changes are noted along the midline ventral abdominal wall inferiorly. Mild stranding is noted in the subcutaneous fat of both lateral thighs and in the lumbar region, without focal fluid collection. No acute osseous abnormality is identified. IMPRESSION: There is dilatation of the common bile duct, which may be related to prior cholecystectomy. There is no calcified choledocholithiasis. This can be correlated with physical exam and laboratory values. There is a small fat-containing ventral wall hernia just to the right of midline below the level of the umbilicus, which contains a small amount of fluid. Otherwise, no acute abdominal or pelvic pathology and no findings to account for the patient's symptoms. Chronic and incidental findings are detailed above. Findings are in agreement with initial teleradiology report. Dictated by: Dictated on workstation # [id number]
== END 2021-04-08 03:29 | disposition home or self-care (01) ==
LOC: EDUNIT# 23:44 → ER FS 23:44
DX: R07.9 Chest pain, unspecified (principal); K83.8 Other specified diseases of biliary tract; R10.9 Unspecified abdominal pain; I48.0 Paroxysmal atrial fibrillation; F31.9 Bipolar disorder, unspecified; Z79.01 Long term (current) use of anticoagulants; Z79.899 Other long term (current) drug therapy
CPT/HCPCS: 36415; 71045; 74177; 80053; 83690; 83880; 84484; 85025; 85610; 85730; 93005

== ENCOUNTER → 2021-06-08 | Outpatient (CLI) | payer MEDICAID | LOC: CARD 11:30 | PROVIDERS: ATTEND Internal Medicine Cardiovascular Disease | DX: I08.0 Rheumatic disorders of both mitral and aortic valves (principal); I48.0 Paroxysmal atrial fibrillation | CPT/HCPCS: 93306 ==

== ENCOUNTER 2021-06-27 04:28 | Inpatient (IN) | payer MEDICAID ==
[~2021-06-27] VITALS: Ht 165.1 cm; Wt 108.0 kg
[2021-06-27] VITALS (9 sets, daily range): BP systolic 140–181; BP diastolic 65–98
[2021-06-27] MEDS ORDERED: NS IV 1000 ML 1,000 ML IV STA ×2 (04:43→05:10)
[2021-06-27] MEDS ORDERED: ONDANSETRON 4 MG/2 ML (SDV) Z0FRAN IVP STA (04:43)
--- NOTE | 2021-06-27 04:45 | ED General ---
General Chief Complaint: Abdominal/GI Problems Stated Complaint: VOMITTING Source of Information: Patient, EMS History of Present Illness Date Seen by Provider: Jun 27, 2021 Time Seen by Provider: 04:28 Initial Comments 60-year-old female presenting by EMS from home. She reports that she has been drinking vodka for the last 3 weeks. She has been drinking at least a pint of vodka a day. She was diagnosed with COVID a little over 2 weeks ago. She states with the COVID she had gotten a lot of swelling in her legs and abdomen as well as elevated blood pressure. She was recently started on blood pressure medicine. She has been having nausea and vomiting in the last few days. She reports that she recently moved here from [place] and is seeing Dr. Storm in the [facility] clinic. She reports that she has not tried to call or see Dr. Storm about her alcohol abuse because she was too embarrassed to speak with her about it. This morning at 4 am after several days of reported n/v and f eeling sick at home she called EMS to transport her to the ED. She denies any acute change this morning to prompt EMS to be called, other than she was worried she would go into DTs because she has done that in the past. She reports her last drink of Vodka was less than 2 hours ago. She also expressed concern that she might have blood clots with her legs being swollen since she had Covid a few weeks ago. Again, although her legs have been swollen for over 2 weeks and they are no different this am, she has not tried to call or check with the clinic or her PCP about this. Timing/Duration: 3-4 Days Modifying Factors: worse with Eating Associated Systoms: No Chest Pain, No Cough, No Diaphoresis, No Fever/Chills, No Headaches, No Loss of Appetite; Nausea/Vomiting; No Rash, No Seizure, No Shortness of Air, No Syncope, No Weakness Allergies and Home Medications Allergies Coded Allergies: No Known Drug Allergies (Unverified , 01/01/21) Patient Home Medication List Home Medication List Reviewed: Yes Alprazolam (Xanax) 0.5 Mg Tablet, 0.5 MG PO HS Prescribed by: CARMEL ARELLANO on 01/11/21 1157 Apixaban (Eliquis) 5 Mg Tablet, 5 MG PO BID Prescribed by: CARMEL ARELLANO on 01/11/21 1130 Escitalopram Oxalate (Lexapro) 20 Mg Tablet, 20 MG PO DAILY Prescribed by: CARMEL ARELLANO on 01/11/21 1156 Hydrocodone/Acetaminophen (Hydrocodone-Acetamin 7.5-325) 1 Each Tablet, 1 EACH PO BID Prescribed by: CARMEL ARELLANO on 01/11/21 1157 Metoprolol Tartrate (Metoprolol Tartrate) 25 Mg Tablet, 25 MG PO BID Prescribed by: CARMEL ARELLANO on 01/11/21 1130 Pramipexole Di-HCl (Mirapex) 0.5 Mg Tablet, 0.5 MG PO QID Prescribed by: CARMEL ARELLANO on 01/11/21 1156 Quetiapine Fumarate (Seroquel) 50 Mg Tablet, 50 MG PO 0800,1300 Prescribed by: CARMEL ARELLANO on 01/11/21 1156 Quetiapine Fumarate (Seroquel) 400 Mg Tablet, 400 MG PO HS Prescribed by: CARMEL ARELLANO on 01/11/21 1156 Review of Systems Review of Systems Constitutional: No chills, No fever EENTM: No epistaxis, No nose congestion Respiratory: No cough, No short of breath Cardiovascular: see HPI; No chest pain; edema Gastrointestinal: No abdominal pain; nausea, vomiting Genitourinary: No dysuria, No frequency Musculoskeletal: back pain (chronic) Skin: No rash Psychiatric/Neurological: Other (burning sensation in her feet since diagnosed with Covid a few weeks ago) Past Dmygtgp-Mtqchf-Aeghgf Hx Patient Social History Tobacco Use?: No Use of E-Cig and/or Vaping dev: No Substance use?: No Alcohol Use?: Yes Alcohol type: Hard Liquor Alcohol Frequency: Daily Past Medical History Surgeries: Yes Abdominal, Appendectomy, Gallbladder Psychosocial: Yes Bipolar Family Medical History No Pertinent Family Hx Physical Exam Vital Signs Vital Signs - First Documented 06/27/21 04:32 Temp 36.6 Pulse 112 Resp 18 B/P (MAP) 171/73 (105) Pulse Ox 92 O2 Delivery Room Air Capillary Refill : Height, Weight, BMI Height: '" Weight: lbs. oz. kg; 39.00 BMI Method: General Appearance: No Apparent Distress, Obese, Other HEENT: PERRL/EOMI, Pharynx Normal, Moist Mucous Membranes Neck: Full Range of Motion, Non Tender, Supple Respiratory: Chest Non Tender, Lungs Clear, Normal Breath Sounds, No Accessory Muscle Use, No Respiratory Distress Cardiovascular: Regular Rate, Rhythm, Normal Peripheral Pulses Gastrointestinal: Normal Bowel Sounds, No Pulsatile Mass, Non Tender, Soft Rectal: Deferred Extremity: Normal Capillary Refill, Normal Inspection, Pedal Edema (1+ pitting edema to BLE) Neurologic/Psychiatric: Alert, Oriented x3, senior storage administrator II-XII Norm as Tested Skin: Normal Color, Warm/Dry Progress/Results/Core Measures Suspected Sepsis SIRS Temperature: Pulse: Respiratory Rate: Laboratory Tests 06/27/21 04:42: White Blood Count 5.8 Blood Pressure / Mean: Laboratory Tests 06/27/21 04:42: Creatinine 0.80, INR Comment 1.0, Platelet Count 173, Total Bilirubin 1.1H Results/Orders Lab Results Laboratory Tests Test 06/27/21 04:42 Range/Units White Blood Count 5.8 4.3-11.0 10^3/uL Red Blood Count 4.82 3.80-5.11 10^6/uL Hemoglobin 15.4 11.5-16.0 g/dL Hematocrit 44 35-52 % Mean Corpuscular Volume 91 80-99 fL Mean Corpuscular Hemoglobin 32 25-34 pg Mean Corpuscular Hemoglobin Concent 35 32-36 g/dL Red Cell Distribution Width 14.7 H 10.0-14.5 % Platelet Count 173 130-400 10^3/uL Mean Platelet Volume 9.4 9.0-12.2 fL Immature Granulocyte % (Auto) 0 % Neutrophils (%) (Auto) 35 L 42-75 % Lymphocytes (%) (Auto) 50 H 12-44 % Monocytes (%) (Auto) 13 H 0-12 % Eosinophils (%) (Auto) 1 0-10 % Basophils (%) (Auto) 1 0-10 % Neutrophils # (Auto) 2.1 1.8-7.8 X 10^3 Lymphocytes # (Auto) 2.9 1.0-4.0 X 10^3 Monocytes # (Auto) 0.8 0.0-1.0 X 10^3 Eosinophils # (Auto) 0.1 0.0-0.3 10^3/uL Basophils # (Auto) 0.1 0.0-0.1 10^3/uL Immature Granulocyte # (Auto) 0.0 0.0-0.1 10^3/uL Prothrombin Time 13.4 12.2-14.7 SEC INR Comment 1.0 0.8-1.4 Activated Partial Thromboplast Time 28 24-35 SEC D-Dimer 0.29 0.00-0.49 UG/ML Sodium Level 137 135-145 MMOL/L Potassium Level 2.3 *L 3.6-5.0 MMOL/L Chloride Level 83 L 98-107 MMOL/L Carbon Dioxide Level 30 21-32 MMOL/L Anion Gap 24 H 5-14 MMOL/L Blood Urea Nitrogen 6 L 7-18 MG/DL Creatinine 0.80 0.60-1.30 MG/DL Estimat Glomerular Filtration Rate 84 BUN/Creatinine Ratio 8 Glucose Level 172 H 70-105 MG/DL Calcium Level 8.6 8.5-10.1 MG/DL Corrected Calcium 8.4 L 8.5-10.1 MG/DL Magnesium Level 1.4 L 1.6-2.4 MG/DL Total Bilirubin 1.1 H 0.1-1.0 MG/DL Aspartate Amino Transf (AST/SGOT) 423 H 5-34 U/L Alanine Aminotransferase (ALT/SGPT) 126 H 0-55 U/L Alkaline Phosphatase 144 H 40-136 U/L Troponin I < 0.30 <0.30 NG/ML Pro-B-Type Natriuretic Peptide 71.3 <75.0 PG/ML Total Protein 7.5 6.4-8.2 GM/DL Albumin 4.3 3.2-4.5 GM/DL Lipase 26 8-78 U/L Salicylates Level < 0.3 L 5.0-20.0 MG/DL Acetaminophen Level < 10 L 10-30 UG/ML Serum Alcohol 260 H <10 MG/DL My Orders Orders - COLTEN FRANKLIN MD Ua Culture If Indicated (06/27/21 04:41) Cbc With Automated Diff (06/27/21 04:41) Comprehensive Metabolic Panel (06/27/21 04:41) Alcohol (06/27/21 04:41) Drug Screen Stat (Urine) (06/27/21 04:41) Acetaminophen (06/27/21 04:41) Salicylate (06/27/21 04:41) Ekg Tracing (06/27/21 04:41) Ed Iv/Invasive Line Start (06/27/21 04:41) Monitor-Rhythm Ecg Trace Only (06/27/21 04:41) Lipase (06/27/21 04:41) Fibrin Degradation Products (06/27/21 04:41) Protime With Inr (06/27/21 04:41) Partial Thromboplastin Time (06/27/21 04:41) Ns Iv 1000 Ml (Sodium Chloride 0.9%) (06/27/21 04:43) Ondansetron Injection (Zofran Injectio (06/27/21 04:43) Troponin I Fs (06/27/21 04:43) Probnp Fs (06/27/21 04:43) Magnesium (06/27/21 04:45) Magnesium 1 Gm/100 Ml Ivpb (Magnesium Dawson (06/27/21 05:10) Potassium Cl 10meq/50ml Ivpb (Kcl 10 Meq (06/27/21 05:10) Potassium Chloride (Tablet) (K Dur Table (06/27/21 05:10) Ns Iv 1000 Ml (Sodium Chloride 0.9%) (06/27/21 05:10) Lorazepam Injection (Ativan Injection) (06/27/21 05:34) Apixaban Tablet (Eliquis Tablet) (06/27/21 05:34) Vital Signs/I&O 06/27/21 06/27/21 04:32 06:21 Temp 36.6 Pulse 112 105 Resp 18 16 B/P (MAP) 171/73 (105) 140/65 Pulse Ox 92 92 O2 Delivery Room Air Room Air Capillary Refill : Progress Note #1: Progress Note Check basic labs and electrocardiogram with cardiac enzymes. Give IV fluids for hydration, Zofran for nausea. Obtain urine check urinalysis as well as urine drug screen. Obtain alcohol level with serum analysis. Progress Note #2: Progress Note Labs show that her CBC is stable. Her coags and D-dimer are not elevated. Her chemistry panel shows low sodium of 2.3 and magnesium of 1.4. She does have elevation of her LFTs as well. Her alcohol level came back at 260. Lipase was negative. Discussed results with the patient and advised that we would help supplement her potassium and magnesium. Continue IV fluids for hydration. Will discuss admission with Dr. Haile who is on-call for the [facility] service and Dr. Storm. When I discussed with patient about admission and doing a prophylactic blood thinner she stated that she does take Eliquis. She also reports that she has not taken any of her medications for the last 6 days because she has just been drinking alcohol. Will restart her Eliquis as a blood thinner and to act as a DVT prophylaxis as well. [address] Haile for the [facility] service and he accepted the patient for admission to telemetry bed for alcohol intoxication and electrolyte imbalance. Will supplement her electrolytes and admit with the CIWA protocol for alcohol withdrawal. ECG Initial ECG Impression Date: Jun 27, 2021 Initial ECG Impression Time: 04:47 Initial ECG Rate: 108 Initial ECG Rhythm: S.Tach Initial ECG Comparisson: Changed Comment Sinus tachycardia with a heart rate of 108 bpm. NC interval 149 ms. QT interval 349 ms with a QTc interval of [address] elevation. There is artifact on the tracing. Multifocal PVCs. Frequent PVCs are new from her previous tracings in 2020. Departure Communication (Admissions) Time/Spoke to Admitting Phy: 05:19 d/w Dr. Haile for [facility]. He accepted pt for admit for alcohol intoxication with hypokalemia, hypomagnesemia and tachycardia. Will admit with CIWA protocol. Initiate potassium and magnesium here in the ED. Continue with IV fluids and Zofran. Impression Primary Impression: Acute alcohol intoxication Qualified Codes: F10.920 - Alcohol use, unspecified with intoxication, uncomplicated Additional Impressions: Hypokalemia Hypomagnesemia Nausea and vomiting in adult Disposition: 30 STILL A PATIENT Condition: Stable Admissions Decision to Admit Reason: Admit from ER (General) Decision to Admit/Date: Jun 27, 2021 Time/Decision to Admit Time: 05:19 Departure-Patient Inst. Referrals: NO,LOCAL PHYSICIAN (PCP/Family) Primary Care Physician COLTEN FRANKLIN MD Jun 27, 2021 04:45
[2021-06-27 04:52] LABS: BASOPHILS % (AUTO) 1 % (0-10); EOSINOPHILS % (AUTO) 1 % (0-10); HEMATOCRIT 44 % (35-52); HEMOGLOBIN 15.4 g/dL (11.5-16.0); LYMPHOCYTES # (AUTO) 2.9 X 10^3 (1.0-4.0); LYMPHOCYTES % (AUTO) 50 % (12-44); MEAN CORPUSCULAR HEMOGLOBIN 32 pg (25-34); MEAN CORPUSCULAR HGB CONC 35 g/dL (32-36); MEAN CORPUSCULAR VOLUME 91 fL (80-99); MEAN PLATELET VOLUME 9.4 fL (9.0-12.2); MONOCYTES % (AUTO) 13 % (0-12); NEUTROPHILS # (AUTO) 2.1 X 10^3 (1.8-7.8); NEUTROPHILS % (AUTO) 35 % (42-75); PLATELET COUNT 173 10^3/uL (130-400); WHITE BLOOD COUNT 5.8 10^3/uL (4.3-11.0)
[2021-06-27 04:53] LABS: BASOPHILS # (AUTO) 0.1 10^3/uL (0.0-0.1); EOSINOPHILS # (AUTO) 0.1 10^3/uL (0.0-0.3); MONOCYTES # (AUTO) 0.8 X 10^3 (0.0-1.0)
[2021-06-27 05:08] LABS: MAGNESIUM 1.4 MG/DL (1.6-2.4); SODIUM 137 MMOL/L (135-145)
[2021-06-27 05:09] LABS: BILIRUBIN,TOTAL 1.1 MG/DL (0.1-1.0); CALCIUM 8.6 MG/DL (8.5-10.1); CARBON DIOXIDE 30 MMOL/L (21-32); CHLORIDE 83 MMOL/L (98-107); GLUCOSE 172 MG/DL (70-105); POTASSIUM 2.3 MMOL/L (3.6-5.0); TOTAL PROTEIN 7.5 GM/DL (6.4-8.2)
[2021-06-27] MEDS ORDERED: KCL 20 MEQ TAB (K-DUR) PO STA (05:10)
[2021-06-27] MEDS ORDERED: POTASSIUM CL 10MEQ/50ML IVPB 50 ML IV STA (05:10)
[2021-06-27] MEDS ORDERED: MAGNESIUM 1 GM/100 ML IVPB 100 ML IV STA (05:10)
[2021-06-27 05:11] LABS: ACETAMINOPHEN < 10 UG/ML (10-30); ALANINE AMINOTRANSFERASE 126 U/L (0-55); ALBUMIN 4.3 GM/DL (3.2-4.5); ALKALINE PHOSPHATASE 144 U/L (40-136); BUN/CREATININE RATIO 8; GFR ESTIMATED 84; SALICYLATE < 0.3 MG/DL (5.0-20.0)
[2021-06-27 05:12] LABS: PROTHROMBIN TIME PATIENT 13.4 SEC (12.2-14.7)
[2021-06-27 05:32] LABS: FIBRIN DEGRADATION PRODUCTS 0.29 UG/ML (0.00-0.49)
[2021-06-27] MEDS ORDERED: LORazepam INJ 2 MG/ML (ATIVAN) VIAL IVP STA (05:34)
[2021-06-27] MEDS ORDERED: APIXABAN 5 MG (ELIQUIS) TABLET PO STA (05:34)
[2021-06-27] MEDS ORDERED: ONDANSETRON 4 MG/2 ML (SDV) Z0FRAN IV PRN (08:45)
[2021-06-27] MEDS ORDERED: SENNA W/DOCUSATE (SENOKOT S) TABLET PO PRN (08:45)
[2021-06-27] MEDS ORDERED: ANTACID SUSP 30 ML UDC (MYLANTA) PO PRN (08:45)
[2021-06-27] MEDS ORDERED: LORazepam INJ 2 MG/ML (ATIVAN) VIAL IM/IV PRN (08:45)
[2021-06-27] MEDS ORDERED: D5 1/2 NS 1000 ML IV SOLUTION 1,000 ML IV PRN (08:45)
[2021-06-27] MEDS ORDERED: 1/2 NS IV SOLUTION 1,000 ML IV PRN (08:45)
[2021-06-27] MEDS ORDERED: LORazepam INJ 2 MG/ML (ATIVAN) VIAL IV PRN (08:45)
[2021-06-27] MEDS: NS IV 1000 ML 1,000 ML IV SCH ×3 (09:39→19:58)
[2021-06-27] MEDS: FOLIC ACID 1 MG TAB PO SCH (09:39)
[2021-06-27] MEDS: MAGNESIUM OXIDE (MAG-OX)400 MG TAB PO SCH ×2 (09:39→20:03)
[2021-06-27] MEDS: meTOproloL SUCCINATE 50 MG (TOPROL XL) TAB PO SCH (09:39)
[2021-06-27] MEDS ORDERED: RT-ALBUTEROL SULF 2.5 MG/3 ML PRE-MIX VIAL INH PRN (09:45)
[2021-06-27] MEDS ORDERED: LORazepam 0.5 MG (ATIVAN) TABLET PO STA (10:03)
[2021-06-27] MEDS ORDERED: LORazepam 1 MG (ATIVAN) TAB ONE (10:05)
--- NOTE | 2021-06-27 10:37 | History & Physical-Hospitalist ---
History of Present Illness HPI/Chief Complaint I have the patient is 60-year-old white female with alcohol use disorder who over the last 3 or 4 weeks have been drinking at least a pint of vodka a day. She noted some increased lower extremity swelling 3 to 4 weeks ago and a week ago started having intermittent nausea and vomiting. She denied hematemesis melena or bright red blood per rectum. She reported epigastric discomfort aggravated by alcohol. Last reported drink was late last night and when she presented to the emergency room her alcohol level of 260 without obvious evidence for intoxication. She reports a history of withdrawals in 1 alcohol-related seizure during hospitalization in the past. She was last hospitalized here in January for COVID-pneumonia with respiratory failure that did not require mechanical intubation. She reports she received her first Moderna vaccination a month and a half ago had a lot of shoulder soreness and she felt like she had flulike symptoms for a week after. She denies any head cold symptoms cough or chest congestion. In her January admission she was intoxicated on admission as well but did not have severe withdrawal symptoms at that time that were reported anyway. She reports a history of bipolar disorder that she has taken Seroquel in the past but the only medication that she has been compliant with over the past month is been Eliquis that she takes for paroxysmal atrial fibrillation likely alcohol related noted in her January admission. She has not been aware of any palpitations or heart racing. In the emergency room she was in sinus tachycardia with frequent PACs on reviewed ECG heart rate anywhere from 1 10- 30. Date Seen 06/27/21 Time Seen by a Provider: 10:37 Attending Physician Aditya Barry MD PCP Lida Storm MD Referring Physician Date of Admission Jun 27, 2021 at 08:22 Home Medications & Allergies Home Medications Reviewed patient Home Medication Reconciliation performed by pharmacy medication reconciliations commercial service technician and/or nursing. Patients Allergies have been reviewed. Allergies Allergies Coded Allergies No Known Drug Allergies (Unverified01/01/21) Past Hkfxzoc-Rpsluc-Yrjyvm Hx Patient Social History Tobacco Use?: No Use of E-Cig and/or Vaping dev: No Substance use?: No Alcohol Use?: Yes Alcohol type: Hard Liquor Alcohol Frequency: Daily Current Status Advance Directives: No Primary Language: [place] Preferred Spoken Language: [place] Past Medical History Surgeries: Abdominal, Appendectomy, Gallbladder Bipolar Family Medical History No Pertinent Family Hx Review of Systems Constitutional: see HPI Physical Exam Physical Exam Vital Signs Vital Signs - First Documented 06/27/21 06/27/21 04:32 09:37 Temp 36.6 Pulse 112 Resp 18 B/P (MAP) 171/73 (105) Pulse Ox 92 O2 Delivery Room Air FiO2 21 Capillary Refill : Less Than 3 Seconds Height, Weight, BMI Height: '" Weight: lbs. oz. kg; 39.00 BMI Method: General Appearance: No Apparent Distress, Obese, Other (Alert oriented and appropriate.) Respiratory: Chest Non Tender, Lungs Clear, Normal Breath Sounds, No Accessory Muscle Use, No Respiratory Distress Cardiovascular: Regular Rate, Rhythm, No Edema, No Gallop, No JVD, No Murmur, Normal Peripheral Pulses Gastrointestinal: No Organomegaly, Soft, Other (Epigastric pain to palpation without rebound or guarding abdomen nondistended.) Extremity: Normal Range of Motion, No Calf Tenderness, Other (Trace pretibial edema bilaterally) Neurologic/Psychiatric: Alert, Oriented x3 Results Results/Procedures Labs Laboratory Tests 06/27/21 04:42 Patient resulted labs reviewed. Assessment/Plan Admission Diagnosis 1. Alcohol use disorder complicated by alcohol related hepatitis as well as likely gastritis. She is high risk for bleeding so we will hold Eliquis and monitor telemetry for evidence for atrial fibrillation. We will consult dialysis social worker as the patient at this point is amenable to consideration for treatment for her alcohol use disorder. She is at high risk for significant withdrawal symptoms so we will continue withdrawal protocol. 2. Reported bipolar disorder off of medication for some time without reported [place] it was some depressive symptoms without suicidal ideation we will continue to monitor. 3. Paroxysmal atrial fibrillation currently sinus tachycardia with PACs due to alcohol intoxication it is too early with for withdrawal symptoms as the patient still has significant the elevated alcohol level. Admission Status: Inpatient Order (span 2 midnights) Reason for Inpatient Admission: See admission diagnosis ADITYA BARRY MD Jun 27, 2021 10:37
[2021-06-27] MEDS ORDERED: ONDANSETRON 4 MG/2 ML (SDV) Z0FRAN IVP PRN (11:00)
[2021-06-28] VITALS (7 sets, daily range): BP systolic 149–187; BP diastolic 77–886
[2021-06-28] MEDS: NS IV 1000 ML 1,000 ML IV SCH ×2 (06:00→15:52)
[2021-06-28] MEDS: THIAMINE 100 MG (VITAMIN B-1) TAB PO SCH (06:00)
[2021-06-28] MEDS: MULTIVIT W/MINERALS TAB (THERAGRAN M) PO SCH (06:00)
[2021-06-28] MEDS: meTOproloL SUCCINATE 50 MG (TOPROL XL) TAB PO SCH (06:00)
[2021-06-28] MEDS ORDERED: METO-333 PO (08:30)
[2021-06-28] MEDS ORDERED: PRAM0.5T9 PO (08:30)
[2021-06-28] MEDS ORDERED: APIX2.5T PO (08:30)
[2021-06-28] MEDS ORDERED: HYDR25TA4 PO (08:30)
[2021-06-28] MEDS ORDERED: QUET200T29 PO (08:30)
[2021-06-28] MEDS ORDERED: HYDR-3817 PO (08:31)
[2021-06-28] MEDS ORDERED: CYAN250010 PO (08:32)
[2021-06-28] MEDS ORDERED: ASCO500C17 PO (08:33)
[2021-06-28] MEDS ORDERED: CHOL10004 PO (08:33)
[2021-06-28] MEDS ORDERED: LOPE1LIQ7 PO (08:34)
[2021-06-28] MEDS ORDERED: FERR-84 PO (08:34)
[2021-06-28] MEDS ORDERED: APIX5TAB PO (09:02)
[2021-06-28] MEDS: FOLIC ACID 1 MG TAB PO SCH (09:18)
[2021-06-28] MEDS: MAGNESIUM OXIDE (MAG-OX)400 MG TAB PO SCH ×2 (09:18→21:47)
[2021-06-28 12:22] LABS: ALBUMIN 3.6 GM/DL (3.2-4.5); POTASSIUM 2.9 MMOL/L (3.6-5.0)
[2021-06-28 12:23] LABS: CALCIUM 7.3 MG/DL (8.5-10.1)
[2021-06-28 12:24] LABS: TOTAL PROTEIN 6.3 GM/DL (6.4-8.2)
[2021-06-28 12:26] LABS: BILIRUBIN,TOTAL 1.6 MG/DL (0.1-1.0)
[2021-06-28 12:28] LABS: CREATININE SERUM 0.81 MG/DL (0.60-1.30)
--- NOTE | 2021-06-28 12:28 | Progress Note - Hospitalist ---
Subjective HPI/CC On Admission Date Seen by Provider: Jun 28, 2021 Time Seen by Provider: 11:00 I have the patient is 60-year-old white female with alcohol use disorder who over the last 3 or 4 weeks have been drinking at least a pint of vodka a day. She noted some increased lower extremity swelling 3 to 4 weeks ago and a week ago started having intermittent nausea and vomiting. She denied hematemesis melena or bright red blood per rectum. She reported epigastric discomfort aggravated by alcohol. Last reported drink was late last night and when she presented to the emergency room her alcohol level of 260 without obvious e vidence for intoxication. She reports a history of withdrawals in 1 alcohol- related seizure during hospitalization in the past. She was last hospitalized here in January for COVID-pneumonia with respiratory failure that did not require mechanical intubation. She reports she received her first Moderna vaccination a month and a half ago had a lot of shoulder soreness and she felt like she had flulike symptoms for a week after. She denies any head cold symptoms cough or chest congestion. In her January admission she was intoxicated on admission as well but did not have severe withdrawal symptoms at that time that were reported anyway. She reports a history of bipolar disorder that she has taken Seroquel in the past but the only medication that she has been compliant with over the past month is been Eliquis that she takes for paroxysmal atrial fibrillation likely alcohol related noted in her January admission. She has not been aware of any palpitations or heart racing. In the emergency room she was in sinus tachycardia with frequent PACs on reviewed ECG heart rate anywhere from 1 10-1 30. Subjective/Events-last exam Patient reports feeling little anxious but does not appear to be agitated. 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 She denies abdominal pain. Objective Exam Vital Signs Vital Signs Date Time Temp Pulse Resp B/P (MAP) Pulse Ox O2 Delivery O2 Flow Rate FiO2 06/28/21 11:58 149/86 (107) 06/28/21 11:25 36.6 92 20 94 Room Air 06/27/21 09:37 21 Capillary Refill : Less Than 3 Seconds General Appearance: No Apparent Distress Respiratory: Chest Non Tender, Lungs Clear, Normal Breath Sounds, No Accessory Muscle Use, No Respiratory Distress Cardiovascular: Regular Rate, Rhythm, No Edema, No Gallop, No JVD, No Murmur, Normal Peripheral Pulses Gastrointestinal: Normal Bowel Sounds, No Organomegaly, No Pulsatile Mass, Non Tender, Soft Results/Procedures Lab Laboratory Tests 06/28/21 12:02 Patient resulted labs reviewed. Assessment/Plan Assessment and Plan Assess & Plan/Chief Complaint 1. Alcohol use disorder complicated by alcohol related hepatitis as well as likely gastritis. She is high risk for bleeding so we will hold Eliquis and monitor telemetry for evidence for atrial fibrillation. We will consult certified social workers in health care as the patient at this point is amenable to consideration for treatment for her alcohol use disorder. Thus far no evidence for withdrawal. 2. Reported bipolar disorder off of medication for some time without reported [place] it was some depressive symptoms without suicidal ideation we will continue to monitor And will resume Seroquel and the patient requests trazodone which she takes nightly for insomnia as well. 3. Paroxysmal atrial fibrillation Past history continue to hold Eliquis as noted above no evidence for recurrent atrial fibrillation heart rate trending lower sinus rhythm with frequent PACs. ADITYA BARRY MD Jun 28, 2021 12:28
[2021-06-28] MEDS: DIPHENOXYLATE/ATROPINE 2.5MG/0.025MG (LOMOTIL) TAB PO PRN (12:59)
[2021-06-28] MEDS: LORazepam 1 MG (ATIVAN) TAB PO PRN (21:47)
[2021-06-28] MEDS: PRAMIPEXOLE 0.5 MG TAB (MIRAPEX) PO SCH (21:47)
[2021-06-28] MEDS: QUEtiapine 200 MG (SEROquel) TAB IMMEDIATE RELEASE PO SCH (21:47)
[2021-06-29] VITALS (7 sets, daily range): BP systolic 107–167; BP diastolic 66–85
[2021-06-29] MEDS: NS IV 1000 ML 1,000 ML IV SCH ×3 (02:35→21:49)
[2021-06-29] MEDS: LORazepam 1 MG (ATIVAN) TAB PO PRN ×5 (04:13→23:55)
[2021-06-29] MEDS: MULTIVIT W/MINERALS TAB (THERAGRAN M) PO SCH (06:06)
[2021-06-29] MEDS: THIAMINE 100 MG (VITAMIN B-1) TAB PO SCH (06:06)
[2021-06-29 07:03] LABS: ALBUMIN 3.3 GM/DL (3.2-4.5); BILIRUBIN,TOTAL 1.8 MG/DL (0.1-1.0); CALCIUM 6.9 MG/DL (8.5-10.1); CREATININE SERUM 0.76 MG/DL (0.60-1.30)
[2021-06-29 07:10] LABS: BASOPHILS % (AUTO) 0 % (0-10); HEMATOCRIT 37 % (35-52); HEMOGLOBIN 12.4 g/dL (11.5-16.0); MEAN CORPUSCULAR HEMOGLOBIN 32 pg (25-34); MEAN CORPUSCULAR HGB CONC 33 g/dL (32-36); MEAN CORPUSCULAR VOLUME 97 fL (80-99); MEAN PLATELET VOLUME 11.1 fL (9.0-12.2); PLATELET COUNT 87 10^3/uL (130-400)
[2021-06-29 07:12] LABS: EOSINOPHILS # (AUTO) 0.1 10^3/uL (0.0-0.3); EOSINOPHILS % (AUTO) 1 % (0-10); LYMPHOCYTES # (AUTO) 2.4 10^3/uL (1.0-4.0); LYMPHOCYTES % (AUTO) 44 % (12-44); MONOCYTES # (AUTO) 0.4 10^3/uL (0.0-1.0); MONOCYTES % (AUTO) 6 % (0-12); NEUTROPHILS # (AUTO) 2.6 10^3/uL (1.8-7.8); NEUTROPHILS % (AUTO) 48 % (42-75); WHITE BLOOD COUNT 5.5 10^3/uL (4.3-11.0)
[2021-06-29 07:14] LABS: POTASSIUM 2.4 MMOL/L (3.6-5.0)
[2021-06-29] MEDS ORDERED: POTASSIUM CL 10MEQ/50ML IVPB 400 ML IV ONE (09:07)
[2021-06-29] MEDS: DIPHENOXYLATE/ATROPINE 2.5MG/0.025MG (LOMOTIL) TAB PO PRN ×2 (09:09→21:42)
[2021-06-29] MEDS: MAGNESIUM OXIDE (MAG-OX)400 MG TAB PO SCH ×2 (09:09→20:14)
[2021-06-29] MEDS: meTOprolol SUCCINATE 100 MG (TOPROL XL) TAB PO SCH (09:09)
[2021-06-29] MEDS: ONDANSETRON 4 MG (ZOFRAN) ORAL DISSOLVE TAB SL PRN (09:09)
[2021-06-29] MEDS: FOLIC ACID 1 MG TAB PO SCH (09:09)
[2021-06-29] MEDS: POTASSIUM CL 10MEQ/50ML IVPB 50 ML IV SCH ×8 (09:11→17:00)
--- NOTE | 2021-06-29 09:45 | Progress Note - Hospitalist ---
Subjective HPI/CC On Admission Date Seen by Provider: Jun 29, 2021 Time Seen by Provider: 10:00 I have the patient is 60-year-old white female with alcohol use disorder who over the last 3 or 4 weeks have been drinking at least a pint of vodka a day. She noted some increased lower extremity swelling 3 to 4 weeks ago and a week ago started having intermittent nausea and vomiting. She denied hematemesis melena or bright red blood per rectum. She reported epigastric discomfort aggravated by alcohol. Last reported drink was late last night and when she presented to the emergency room her alcohol level of 260 without obvious e vidence for intoxication. She reports a history of withdrawals in 1 alcohol- related seizure during hospitalization in the past. She was last hospitalized here in January for COVID-pneumonia with respiratory failure that did not require mechanical intubation. She reports she received her first Moderna vaccination a month and a half ago had a lot of shoulder soreness and she felt like she had flulike symptoms for a week after. She denies any head cold symptoms cough or chest congestion. In her January admission she was intoxicated on admission as well but did not have severe withdrawal symptoms at that time that were reported anyway. She reports a history of bipolar disorder that she has taken Seroquel in the past but the only medication that she has been compliant with over the past month is been Eliquis that she takes for paroxysmal atrial fibrillation likely alcohol related noted in her January admission. She has not been aware of any palpitations or heart racing. In the emergency room she was in sinus tachycardia with frequent PACs on reviewed ECG heart rate anywhere from 1 10- 30. Subjective/Events-last exam Pt is about the same Alcohol withdrawal protocol still on board Hypokalemia will be replaced with 80 mL equivalent of IV potassium Still pretty nauseated can't do it on the oral route Pt wants to go home soon Review of Systems General: Fatigue, Malaise Objective Exam Vital Signs Vital Signs Date Time Temp Pulse Resp B/P (MAP) Pulse Ox O2 Delivery O2 Flow Rate FiO2 06/30/21 03:52 36.8 85 93 06/30/21 03:23 18 150/91 (110) Nasal Cannula 2.00 06/27/21 09:37 21 Capillary Refill : Less Than 3 Seconds General Appearance: WD/WN, Anxious, Chronically ill, Mild Distress Respiratory: Lungs Clear, Normal Breath Sounds Cardiovascular: Regular Rate, Rhythm Neurologic/Psychiatric: Alert, Oriented x3, No Motor/Sensory Deficits, Normal Mood/Affect Results/Procedures Lab Laboratory Tests 06/29/21 06:12 Patient resulted labs reviewed. Assessment/Plan Assessment and Plan Assess & Plan/Chief Complaint Assessment: 1. Alcohol use disorder complicated by alcohol related hepatitis as well as likely gastritis. She is high risk for bleeding so we will hold Eliquis and monitor telemetry for evidence for atrial fibrillation. We will consult social media director as the patient at this point is amenable to consideration for treatment for her alcohol use disorder. Thus far no evidence for withdrawal. 2. Reported bipolar disorder off of medication for some time without reported am[place] albeit was some depressive symptoms without suicidal ideation we will continue to monitor And will resume Seroquel and the patient requests trazodone which she takes nightly for insomnia as well. 3. Paroxysmal atrial fibrillation Past history continue to hold Eliquis as noted above no evidence for recurrent atrial fibrillation heart rate trending lower sinus rhythm with frequent PACs. Plan: Replace potassium Monitor closely BENY WHEELER DO Jun 29, 2021 09:45
[2021-06-29] MEDS: ENOXAPARIN 40 MG/0.4 ML (LOVENOX) SYR SC SCH (10:42)
[2021-06-29] MEDS: PRAMIPEXOLE 0.5 MG TAB (MIRAPEX) PO SCH (20:14)
[2021-06-29] MEDS: QUEtiapine 200 MG (SEROquel) TAB IMMEDIATE RELEASE PO SCH (20:14)
[2021-06-30] VITALS (7 sets, daily range): BP systolic 141–176; BP diastolic 73–93
[2021-06-30] MEDS: LORazepam 1 MG (ATIVAN) TAB PO PRN ×4 (03:26→19:44)
[2021-06-30] MEDS: THIAMINE 100 MG (VITAMIN B-1) TAB PO SCH (06:58)
[2021-06-30] MEDS: MULTIVIT W/MINERALS TAB (THERAGRAN M) PO SCH (06:58)
[2021-06-30 07:10] LABS: BASOPHILS % (AUTO) 0 % (0-10); EOSINOPHILS # (AUTO) 0.1 10^3/uL (0.0-0.3); EOSINOPHILS % (AUTO) 2 % (0-10); HEMATOCRIT 36 % (35-52); HEMOGLOBIN 11.9 g/dL (11.5-16.0); LYMPHOCYTES # (AUTO) 2.5 10^3/uL (1.0-4.0); LYMPHOCYTES % (AUTO) 40 % (12-44); MEAN CORPUSCULAR HEMOGLOBIN 32 pg (25-34); MEAN CORPUSCULAR HGB CONC 33 g/dL (32-36); MEAN CORPUSCULAR VOLUME 97 fL (80-99); MEAN PLATELET VOLUME 10.4 fL (9.0-12.2); MONOCYTES # (AUTO) 0.3 10^3/uL (0.0-1.0); MONOCYTES % (AUTO) 5 % (0-12); NEUTROPHILS # (AUTO) 3.3 10^3/uL (1.8-7.8); NEUTROPHILS % (AUTO) 52 % (42-75); WHITE BLOOD COUNT 6.2 10^3/uL (4.3-11.0)
[2021-06-30 07:18] LABS: PLATELET COUNT 79 10^3/uL (130-400)
[2021-06-30 07:36] LABS: ALBUMIN 3.2 GM/DL (3.2-4.5); BILIRUBIN,TOTAL 1.2 MG/DL (0.1-1.0); CALCIUM 6.7 MG/DL (8.5-10.1); CREATININE SERUM 0.72 MG/DL (0.60-1.30); MAGNESIUM 1.5 MG/DL (1.6-2.4); POTASSIUM 2.9 MMOL/L (3.6-5.0); TOTAL PROTEIN 5.9 GM/DL (6.4-8.2)
[2021-06-30] MEDS: ONDANSETRON 4 MG (ZOFRAN) ORAL DISSOLVE TAB SL PRN (07:49)
[2021-06-30] MEDS: DIPHENOXYLATE/ATROPINE 2.5MG/0.025MG (LOMOTIL) TAB PO PRN (07:49)
[2021-06-30] MEDS: meTOprolol SUCCINATE 100 MG (TOPROL XL) TAB PO SCH (07:49)
[2021-06-30] MEDS: NS IV 1000 ML 1,000 ML IV SCH ×2 (07:49→23:41)
[2021-06-30] MEDS: FOLIC ACID 1 MG TAB PO SCH (07:49)
[2021-06-30] MEDS: ENOXAPARIN 40 MG/0.4 ML (LOVENOX) SYR SC SCH (11:09)
--- NOTE | 2021-06-30 12:15 | Progress Note - Hospitalist ---
[facility] 06/30/21 1215: Subjective HPI/CC On Admission Date Seen by Provider: Jun 30, 2021 Time Seen by Provider: 08:30 I have the patient is 60-year-old white female with alcohol use disorder who over the last 3 or 4 weeks have been drinking at least a pint of vodka a day. She noted some increased lower extremity swelling 3 to 4 weeks ago and a week ago started having intermittent nausea and vomiting. She denied hematemesis melena or bright red blood per rectum. She reported epigastric discomfort aggravated by alcohol. Last reported drink was late last night and when she presented to the emergency room her alcohol level of 260 without obvious evidence for intoxication. She reports a history of withdrawals in 1 alcohol- related seizure during hospitalization in the past. She was last hospitalized here in January for COVID-pneumonia with respiratory failure that did not require mechanical intubation. She reports she received her first Moderna vaccination a month and a half ago had a lot of shoulder soreness and she felt like she had flulike symptoms for a week after. She denies any head cold symptoms cough or chest congestion. In her January admission she was intoxicated on admission as well but did not have severe withdrawal symptoms at that time that were reported anyway. She reports a history of bipolar disorder that she has taken Seroquel in the past but the only medication that she has been compliant with over the past month is been Eliquis that she takes for paroxysmal atrial fibrillation likely alcohol related noted in her January admission. She has not been aware of any palpitations or heart racing. In the emergency room she was in sinus tachycardia with frequent PACs on reviewed ECG heart rate anywhere from 06 21-07 11. Subjective/Events-last exam Patient continues to have nausea and diarrhea Reports numbness and tingling, and calf cramps States that her hand cramps when she is having her BP taken Reports a medical history of Back pain and sciatica which she takes hydrocodone to relieve the pain Potassium at 2.9, Platelets at 79, Ca2+ at 7.3 and Liver enzymes are trending down Review of Systems General: No Chills, No Other (fevers) Pulmonary: No Dyspnea, No Cough Cardiovascular: No: Chest Pain, Palpitations Gastrointestinal: Nausea, Diarrhea; No: Vomiting, Abdominal Pain Neurological: Numbness (In UE and LE) Objective Exam Vital Signs Vital Signs Date Time Temp Pulse Resp B/P (MAP) Pulse Ox O2 Delivery O2 Flow Rate FiO2 06/30/21 08:00 36.7 98 18 172/82 (112) 93 Nasal Cannula 2.00 06/27/21 09:37 21 Capillary Refill : Less Than 3 Seconds General Appearance: No Apparent Distress, WD/WN HEENT: TMs Normal, Normal ENT Inspection (no gross deformities) Neck: Non Tender, Supple Respiratory: Chest Non Tender, Lungs Clear, Normal Breath Sounds, No Accessory Muscle Use, No Respiratory Distress Cardiovascular: No Edema, No Murmur, Normal Peripheral Pulses (radial pulses bilaterally 2+), Irregularly Irregular Gastrointestinal: Non Tender, Soft Extremity: No Calf Tenderness, No Pedal Edema Neurologic/Psychiatric: Alert, Oriented x3, Normal Mood/Affect Skin: Normal Color, Warm/Dry Results/Procedures Lab Laboratory Tests 06/30/21 06:55 Patient resulted labs reviewed. Assessment/Plan Assessment and Plan Assess & Plan/Chief Complaint Alcohol use disorder Alcohol withdrawal diarrhea possibly secondary to Opioid withdrawal hypokalemia hypomagnesemia hypocalcemia Acute hepatitis secondary to alcohol Numbness and tingling secondary to electrolyte disturbance Hypertensive during hospital course Sciatica (outside diagnosis) Reported bipolar disorder Paroxysmal Afib Appreciate substance abuse services director Continue GI prophylaxis including tums Continue Home meds for bipolar disorder Will begin pain regimen for sciatica Continue to replace electrolytes Continue medication for nausea Alcohol withdrawal protocol monitor closely HILLARY WHEELER DO 07/01/21 0539: Subjective Subjective/Events-last exam Pt is still in alcohol withdrawal Potassium 2.9, I did order more potassium She remains very nauseated when she attempts to eat Midline will be placed, she just ripped out her IV Review of Systems General: Fatigue, Malaise Gastrointestinal: Nausea Objective Exam General Appearance: No Apparent Distress, WD/WN, Chronically ill, Obese Respiratory: Lungs Clear, Normal Breath Sounds Cardiovascular: Irregularly Irregular Neurologic/Psychiatric: Alert, Oriented x3 Assessment/Plan Assessment and Plan Assess & Plan/Chief Complaint Supportive care Supervisory-Addendum Brief Verification & Attestation Participated in pt care: history, MDM, physical Personally performed: exam, history, MDM, supervision of care Care discussed with: Medical Student Procedures: n/a Results interpretation: Verified all documentation Verification and Attestation of Medical Student E/M Service A medical student performed and documented this service in my presence. I reviewed and verified all information documented by the medical student and made modifications to such information, when appropriate. I personally performed the physical exam and medical decision making. Hillary Wheeler, Jul 01, 2021,05:37 [facility] Jun 30, 2021 12:15 HILLARY WHEELER DO Jul 01, 2021 05:39
[2021-06-30] MEDS: CALCIUM CARBONATE 500 MG (TUMS) TAB.CHEW PO SCH ×3 (12:22→19:44)
[2021-06-30] MEDS: POTASSIUM CL 10MEQ/50ML IVPB 50 ML IV SCH ×8 (14:29→23:27)
[2021-06-30] MEDS ORDERED: REGADENOSON 0.4 MG/5 ML SYR (LEXISCAN) IV ONE (15:45)
[2021-06-30] MEDS: QUEtiapine 200 MG (SEROquel) TAB IMMEDIATE RELEASE PO SCH (19:44)
[2021-06-30] MEDS: PRAMIPEXOLE 0.5 MG TAB (MIRAPEX) PO SCH (19:44)
[2021-07-01 05:03] VITALS: BP 183/91
[2021-07-01] MEDS ORDERED: LOPERAMIDE SUSP 2 MG/15 ML (IMODIUM) UDC PO PRN (05:45)
[2021-07-01 05:57] LABS: BASOPHILS % (AUTO) 0 % (0-10); EOSINOPHILS # (AUTO) 0.1 10^3/uL (0.0-0.3); EOSINOPHILS % (AUTO) 2 % (0-10); LYMPHOCYTES # (AUTO) 1.8 10^3/uL (1.0-4.0); MEAN CORPUSCULAR HEMOGLOBIN 32 pg (25-34); MEAN PLATELET VOLUME 10.3 fL (9.0-12.2)
[2021-07-01 05:59] LABS: HEMATOCRIT 35 % (35-52); HEMOGLOBIN 11.4 g/dL (11.5-16.0); LYMPHOCYTES % (AUTO) 24 % (12-44); MEAN CORPUSCULAR HGB CONC 33 g/dL (32-36); MEAN CORPUSCULAR VOLUME 99 fL (80-99); MONOCYTES # (AUTO) 0.3 10^3/uL (0.0-1.0); MONOCYTES % (AUTO) 4 % (0-12); NEUTROPHILS # (AUTO) 5.4 10^3/uL (1.8-7.8); NEUTROPHILS % (AUTO) 70 % (42-75); PLATELET COUNT 87 10^3/uL (130-400); WHITE BLOOD COUNT 7.7 10^3/uL (4.3-11.0)
[2021-07-01 06:23] LABS: ALBUMIN 3.3 GM/DL (3.2-4.5); POTASSIUM 3.4 MMOL/L (3.6-5.0)
[2021-07-01 06:24] LABS: CALCIUM 6.9 MG/DL (8.5-10.1)
[2021-07-01 06:27] LABS: BILIRUBIN,TOTAL 1.4 MG/DL (0.1-1.0)
[2021-07-01 06:29] LABS: CREATININE SERUM 0.73 MG/DL (0.60-1.30)
[2021-07-01 07:00] VITALS: BP 171/82
[2021-07-01] MEDS: MULTIVIT W/MINERALS TAB (THERAGRAN M) PO SCH (07:34)
[2021-07-01] MEDS: CATHETER FLUSH 10 ML SYR IV PRN ×2 (07:53→08:55)
[2021-07-01] MEDS ORDERED: REGADENOSON 0.4 MG/5 ML SYR (LEXISCAN) IV ONE (08:44)
[2021-07-01 08:53] VITALS: BP 177/108
[2021-07-01] MEDS ORDERED: VITAMIN D3 25 MCG (1,000 UNITS) TABLET PO SCH (09:00)
[2021-07-01] MEDS ORDERED: meTOprolol TARTRATE 25 MG (LOPRESSOR) TABLET PO SCH (09:00)
[2021-07-01] MEDS ORDERED: APIXABAN 5 MG (ELIQUIS) TABLET PO SCH (09:00)
[2021-07-01] MEDS: meTOprolol SUCCINATE 100 MG (TOPROL XL) TAB PO SCH (10:00)
[2021-07-01] MEDS: FOLIC ACID 1 MG TAB PO SCH (10:00)
[2021-07-01] MEDS: CALCIUM CARBONATE 500 MG (TUMS) TAB.CHEW PO SCH ×2 (10:01→13:36)
--- NOTE | 2021-07-01 10:51 | NUCLEAR STRESS TEST ---
REGADENOSON NUCLEAR STRESS Date of procedure: 07/01/2021. Primary care provider: Lida Storm MD Admitting physician: Marquita Rawls DO. INDICATION: Abnormal electrocardiogram. BASELINE ELECTROCARDIOGRAM: Sinus tachycardia at [address] changes. STRESS TEST PROCEDURE: The patient was administered 0.4 mg of intravenous Regadenoson. The resting heart rate was 104 bpm and the peak heart rate was 116 bpm. The resting blood pressure was 192/116 mmHg and the minimum blood pressure was 177/108 mmHg. This represents a normal heart rate and a normal blood pressure response to Regadenoson with resting hypertension. The test was stopped due to the protocol. There was no chest discomfort during the test. There were no arrhythmias during the test. There were no significant stress induced electrocardiogram changes. NUCLEAR PROCEDURE: The patient was administered 10.4 mCi of intravenous technetium 99m Tetrofosmin at rest for the rest images. The patient was subsequently administered 32.8 mCi of intravenous technetium 99m Tetrofosmin at peak stress for the stress images. Following an appropriate wait after each injection, imaging was obtained. The images were subsequently processed and reformatted in the usual views. Gated imaging was obtained. The image quality was adequate with some degree of gastrointestinal and breast attenuation artifact. CT attenuation correction was used as a adjunct to standard imaging. Both the corrected and uncorrected images were reviewed for interpretation. NUCLEAR RESULTS: There was normal myocardial perfusion in all segments without evidence of infarction or ischemia. There was normal left ventricular chamber size with an end-diastolic volume of 38 mL and an end-systolic volume of 9 mL. There was no evidence of transient ischemic dilatation. The TID ratio was 1.09. There was normal wall motion in all segments with a calculated ejection fraction of 77%. IMPRESSION: 1. Normal heart rate and blood pressure response to regadenoson with resting hypertension. 2. There was no chest discomfort, arrhythmias, or electrocardiogram changes during the test. 3. There was normal myocardial perfusion in all segments without evidence of infarction or ischemia. 4. There was normal wall motion in all segments with a calculated ejection fraction of 77%. Certain portions of this document may have been dictated utilizing voice recognition technology. Inherent to this technology, typographical and grammatical errors may exist. As much as I am diligent to identify and correct these mistakes, some errors may remain in the document. CONI LEWIS JR, MD Jul 01, 2021 10:50
[2021-07-01] MEDS ORDERED: KCL 20 MEQ TAB (K-DUR) PO ONE ×2 (11:30→11:41)
[2021-07-01] MEDS ORDERED: CATHETER FLUSH 10 ML SYR IV PRN (11:45)
[2021-07-01] MEDS ORDERED: QUET200T29 PO (11:55)
[2021-07-01] MEDS ORDERED: FERR-84 PO (11:55)
[2021-07-01] MEDS ORDERED: APIX5TAB PO (11:55)
[2021-07-01] MEDS ORDERED: PRAM0.5T9 PO (11:55)
[2021-07-01] MEDS ORDERED: HYDR-3817 PO (11:55)
[2021-07-01] MEDS ORDERED: HYDR25TA4 PO (11:55)
[2021-07-01] MEDS ORDERED: MTP100TCR PO (11:55)
[2021-07-01] MEDS ORDERED: POTA10TA37 PO (11:55)
--- NOTE | 2021-07-01 11:56 | Discharge Summary ---
Discharge Summary Hospital Course Was the Problem List Reviewed?: Yes Problems/Dx: (1) Alcohol withdrawal (2) Hypokalemia Hospital Course Date of Admission: Jun 27, 2021 at 08:22 Admission Diagnosis : Family Physician/Provider: Lida Storm MD Date of Discharge: 07/01/21 Discharge Diagnosis: Alcohol withdrawal, hypokalemia, paroxysmal A. fib Hospital Course: Standard hospital course: Withdrawal. Hypokalemia replaced. Paroxysmal A. fib was stable. Stress test obtained by Dr. Biggs and was planned for outpatient. Restarted all home meds. Patient was discharged improved condition. Labs and Pending Lab Test: Laboratory Tests 07/01/21 05:35: White Blood Count 7.7, Red Blood Count 3.54L, Hemoglobin 11.4L, Hematocrit 35, Mean Corpuscular Volume 99, Mean Corpuscular Hemoglobin 32, Mean Corpuscular Hemoglobin Concent 33, Red Cell Distribution Width 14.6H, Platelet Count 87L, Mean Platelet Volume 10.3, Immature Granulocyte % (Auto) 0, Neutrophils (%) (Auto) 70, Lymphocytes (%) (Auto) 24, Monocytes (%) (Auto) 4, Eosinophils (%) (Auto) 2, Basophils (%) (Auto) 0, Neutrophils # (Auto) 5.4, Lymphocytes # (Auto) 1.8, Monocytes # (Auto) 0.3, Eosinophils # (Auto) 0.1, Basophils # (Auto) 0.0, Immature Granulocyte # (Auto) 0.0, Percent Immature Platelet Fraction 4.4, Sodium Level 140, Potassium Level 3.4L, Chloride Level 105, Carbon Dioxide Level 22, Anion Gap 13, Blood Urea Nitrogen 7, Creatinine 0.73, Estimat Glomerular Filtration Rate 94, BUN/Creatinine Ratio 10, Glucose Level 103, Calcium Level 6.9L, Corrected Calcium 7.5L, Total Bilirubin 1.4H, Aspartate Amino Transf (AST/SGOT) 59H, Alanine Aminotransferase (ALT/SGPT) 42, Alkaline Phosphatase 69, Total Protein 6.0L, Albumin 3.3 Home Meds Active Potassium Chloride 10 Meq Tab.er.prt 10 Meq PO DAILY Metoprolol Succinate 100 Mg Tab.er.24h 100 Mg PO DAILY Eliquis (Apixaban) 5 Mg Tablet 5 Mg PO BID Iron (Ferrous Sulfate) 325 Mg Tablet 325 Mg PO DAILY Hydrocodone-Acetamin 7.5-325 (Hydrocodone/Acetaminophen) 1 Each Tablet 1 Each PO Q6H PRN Pramipexole Dihydrochloride (Pramipexole Di-HCl) 0.5 Mg Tablet 0.5 Mg PO HS Quetiapine Fumarate 200 Mg Tablet 200 Mg PO HS Hydrochlorothiazide 25 Mg Tablet 25 Mg PO DAILY Reported Imodium A-D (Loperamide HCl) 1 Mg/7.5 Ml Liquid 1 Mg PO Q4H PRN Vitamin D3 (Cholecalciferol (Vitamin D3)) 25 Mcg Tablet 25 Mcg PO DAILY Vitamin C (Ascorbic Acid) 500 Mg Capsule 500 Mg PO DAILY Vitamin B12 (Cyanocobalamin (Vitamin B-12)) 2,500 Mcg Tablet 2,500 Mcg PO DAILY Metoprolol Tartrate 25 Mg Tablet 25 Mg PO DAILY Assessment/Pt Instructions PCP in 1 week Discharge Planning: <30 minutes discharge planning Discharge Instructions Discharge Diet: No Restrictions Discharge Physical Examination Vital Signs Vital Signs Date Time Temp Pulse Resp B/P (MAP) Pulse Ox O2 Delivery O2 Flow Rate FiO2 07/01/21 10:00 Nasal Cannula 2.00 07/01/21 08:53 104 16 177/108 (131) 95 07/01/21 07:00 37.4 06/27/21 09:37 21 General Appearance: No Apparent Distress, WD/WN, Chronically ill Allergies: Coded Allergies: cephalexin (Verified Allergy, Severe, 06/27/21) Discharge Summary Date of Admission Jun 27, 2021 at 08:22 Date of Discharge Discharge Date: Jul 01, 2021 Admission Diagnosis 1. Alcohol use disorder complicated by alcohol related hepatitis as well as likely gastritis. She is high risk for bleeding so we will hold Eliquis and monitor telemetry for evidence for atrial fibrillation. We will consult addiction social worker as the patient at this point is amenable to consideration for treatment for her alcohol use disorder. She is at high risk for significant withdrawal symptoms so we will continue withdrawal protocol. 2. Reported bipolar disorder off of medication for some time without reported [place] it was some depressive symptoms without suicidal ideation we will continue to monitor. 3. Paroxysmal atrial fibrillation currently sinus tachycardia with PACs due to alcohol intoxication it is too early with for withdrawal symptoms as the patient still has significant the elevated alcohol level. Discharge Diagnosis Supportive care BENY WHEELER DO Jul 01, 2021 11:56
[2021-07-01 12:00] VITALS: BP 169/89
--- NOTE | 2021-07-01 13:49 | Progress Note ---
[facility] 07/01/21 1349: Progress Note Brief Hospital Course: Patient was admitted on 06/27/2021 and discharged 07/01/2021. Patient was admitted from the ED to the ICU and when stable, transferred to the floor. Patient received CBC, CMP, UA, Drug Screen, EKG. CMP was significant for low potassium of 2.3 and magnesium of 1.4. Serum alcohol was 260. EKG was significant for Sinus tachycardia with a heart rate of 108 bpm. [place] interval 149 ms. QT interval 349 ms with a QTc interval of [address] elevation. There is artifact on the tracing. Multifocal PVCs. Patient was admitted to medicine and consulted Macerator Operator. Hospital interventions included medical management of electrolyte abnormalities, and alcohol withdrawal protocol as well as other past medical history, and medical issues. On discharge, patient was sent home. Patient will continue home meds. This summary does not include the entirety of the patient's visit and is only a short description of pertinent lab values and information. For the complete hospital course, please refer to the patient's chart. Date of Admission: 06/27/2021 Date of Discharge: 07/01/2021 Attending Physician: Dr. Hillary Rawls DO Admission Diagnosis: Alcohol Intoxication, Hypomagnesemia, Hypokalemia Discharge Diagnosis: Alcohol Use Disorder Consultations: Macerator Operator, Nutrition Procedures: None HILLARY RAWLS DO 07/01/212020: Supervisory-Addendum Brief Verification & Attestation Participated in pt care: history, MDM, physical Personally performed: exam, history, MDM, supervision of care Care discussed with: Medical Student Procedures: n/a Results interpretation: Verified all documentation Verification and Attestation of Medical Student E/M Service A medical student performed and documented this service in my presence. I reviewed and verified all information documented by the medical student and made modifications to such information, when appropriate. I personally performed the physical exam and medical decision making. Hillary Rawls, Jul 01, 2021,20:21 [facility] Jul 01, 2021 13:49 HILLARY RAWLS DO Jul 01, 2021 20:21
[2021-07-01] MEDS ORDERED: CATHETER FLUSH 10 ML SYR IV SCH (14:00)
[2021-07-01] MEDS ORDERED: PRAMIPEXOLE 0.5 MG TAB (MIRAPEX) PO SCH (21:00)
[2021-07-01] MEDS ORDERED: QUEtiapine 200 MG (SEROquel) TAB IMMEDIATE RELEASE PO SCH (21:00)
[2021-07-02] MEDS ORDERED: KCL 20 MEQ TAB (K-DUR) PO SCH (07:00)
== END 2021-07-01 17:00 | disposition home or self-care (01) | DRG 897 ==
LOC: EDUNIT# 04:28 → ER FS 04:30 → 4TH 08:22
PROVIDERS: ADMIT Internal Medicine; ATTEND Internal Medicine
DX: F10.929 Alcohol use, unspecified with intoxication, unspecified (principal); F10.939 Alcohol use, unspecified with withdrawal, unspecified; Y90.8 Blood alcohol level of 240 mg/100 ml or more; K70.10 Alcoholic hepatitis without ascites; K29.20 Alcoholic gastritis without bleeding; E87.6 Hypokalemia; E83.42 Hypomagnesemia; I48.0 Paroxysmal atrial fibrillation; F31.9 Bipolar disorder, unspecified; Z86.16 Personal history of COVID-19; R19.7 Diarrhea, unspecified; F11.23 Opioid dependence with withdrawal; E83.51 Hypocalcemia; M54.30 Sciatica, unspecified side
CPT/HCPCS: 36410; 36415; 76937; 78452; 80053; 80320; 80329; 83690; 83735; 83880; 84484; 85025; 85379; 85610; 85730; 93005; 93017; 93041; 94760; 96361; 96365; 96375

== ENCOUNTER 2021-07-29 01:01 | Emergency (ER) | payer MEDICAID ==
[~2021-07-29] VITALS: Ht 165 cm; Wt 99.7 kg
[~2021-07-29 01:01] MED LIST changes: +APIX2.5T PO; +ASCO500C17 PO; +CHOL10004 PO; +CYAN250010 PO; +FERR-84 PO; +HYDR25TA4 PO; +LOPE1LIQ7 PO; +MTP100TCR PO; +POTA10TA37 PO; +PRAM0.5T9 PO; +QUET200T29 PO
[2021-07-29] MEDS ORDERED: ONDANSETRON 4 MG/2 ML (SDV) Z0FRAN IVP STA ×2 (01:15→05:35)
[2021-07-29] MEDS ORDERED: PANTOPRAZOLE 40 MG (PROTONIX) VIAL IV STA (01:15)
[2021-07-29] MEDS ORDERED: NS IV 1000 ML 1,000 ML IV STA (01:15)
--- NOTE | 2021-07-29 01:24 | ED Psychosocial ---
General Chief Complaint: Substance Abuse Stated Complaint: SOB;SUBSTANCE ABUSE Source: patient, EMS, old records Exam Limitations: intoxication History of Present Illness Date Seen by Provider: Jul 29, 2021 Time Seen by Provider: 01:01 Initial Comments 60-year-old female presenting by EMS with complaints of alcohol intoxication. She states that she wants to get help with alcohol withdrawal and stopping drinking. She presents with the same story as when she was here June 27. She again states that she has had vomiting and diarrhea for the last several days. She states that she has only been able to keep down alcohol. She has been drinking alcohol to prevent having withdrawal symptoms and seizures. She states that it has been over 4 years since she had any seizures when withdrawing from alcohol. She has been drinking at least 2/5 of vodka a day. She had been very apologetic again just like her last ER visit a month ago stating that she wants to quit drinking and wants help. She has established with Dr. Funez through the [facility] clinic but has not seen her for the symptoms. She has not followed up since she was released from the hospital for alcohol intoxication and hypokalemia when she was admitted June 27. Given that she has been having symptoms for several days to a week she has not seen anyone until tonight in the middle of the night when she called EMS. 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) Severity: severe Associated Symptoms: anxiety, impaired concentration Allergies and Home Medications Allergies Coded Allergies: cephalexin (Verified Allergy, Severe, 06/27/21) Patient Home Medication List Home Medication List Reviewed: Yes Apixaban (Eliquis) 5 Mg Tablet, 5 MG PO BID Prescribed by: BENY WHEELER on 07/01/21 1155 Ascorbic Acid (Vitamin C) 500 Mg Capsule, 500 MG PO DAILY, (Reported) Entered as Reported by: INGRID SLADE on 06/28/21 0833 Chlordiazepoxide HCl (Chlordiazepoxide HCl) 25 Mg Capsule, 25 MG PO UD Prescribed by: COLTEN FRANKLIN on 07/29/21 0745 Cholecalciferol (Vitamin D3) (Vitamin D3) 25 Mcg Tablet, 25 MCG PO DAILY, (Reported) Entered as Reported by: INGRID SLADE on 06/28/21 0833 Cyanocobalamin (Vitamin B-12) (Vitamin B12) 2,500 Mcg Tablet, 2,500 MCG PO DAILY, (Reported) Entered as Reported by: INGRID SLADE on 06/28/21 0832 Ferrous Sulfate (Iron) 325 Mg Tablet, 325 MG PO DAILY Prescribed by: BENY WHEELER on 07/01/21 115 Hydrochlorothiazide (Hydrochlorothiazide) 25 Mg Tablet, 25 MG PO DAILY Prescribed by: BENY WHEELER on 07/01/21 1155 Hydrocodone/Acetaminophen (Hydrocodone-Acetamin 7.5-325) 1 Each Tablet, 1 EACH PO Q6H PRN for PAIN-MODERATE (5-7) Prescribed by: BENY WHEELER on 07/01/21 115 Loperamide HCl (Imodium A-D) 1 Mg/7.5 Ml Liquid, 1 MG PO Q4H PRN for DIARRHEA, (Reported) Entered as Reported by: INGRID SLADE on 06/28/21 0834 Metoprolol Succinate (Metoprolol Succinate) 100 Mg Tab.er.24h, 100 MG PO DAILY Prescribed by: BENY WHEELER on 07/01/21 115 Ondansetron (Ondansetron Odt) 4 Mg Tab.rapdis, 4 MG PO Q6H PRN for NAUSEA/VOMITING Prescribed by: COLTEN FRANKLIN on 07/29/21 0735 Potassium Chloride (Potassium Chloride) 10 Meq Tab.er.prt, 10 MEQ PO DAILY Prescribed by: BENY WHEELER on 07/01/21 115 Pramipexole Di-HCl (Pramipexole Dihydrochloride) 0.5 Mg Tablet, 0.5 MG PO HS Prescribed by: BENY WHEELER on 07/01/21 115 Quetiapine Fumarate (Quetiapine Fumarate) 200 Mg Tablet, 200 MG PO HS Prescribed by: BENY WHEELER on 07/01/21 1155 Review of Systems Constitutional: No chills; fever (subjective feels like she is "burning the alcohol out of my system") EENTM: no symptoms reported Respiratory: cough, short of breath Cardiovascular: No chest pain; palpitations Gastrointestinal: abdominal pain (epigastric abdominal pain), diarrhea, nausea, vomiting Genitourinary: no symptoms reported Musculoskeletal: no symptoms reported Skin: no symptoms reported Psychiatric/Neurological: Anxiety Past Ifopzbm-[id number]-Sezkbk Hx Patient Social History Tobacco Use?: No Alcohol Use?: Yes Alcohol type: Hard Liquor (Vodka) Alcohol Frequency: Daily Immunizations Up To Date First/Initial COVID19 Vaccinat: JAN 2021 Past Medical History Surgery/Hospitalization HX: Alcohol Abuse, Bipolar Surgeries: Yes Abdominal, Appendectomy, Gallbladder Psychosocial: Yes Bipolar Family Medical History No Pertinent Family Hx Physical Exam Vital Signs - First Documented 07/29/21 01:03 Temp 36.5 Pulse 98 Resp 22 B/P (MAP) 171/80 (110) Pulse Ox 96 O2 Delivery Room Air Capillary Refill : Height, Weight, BMI Height: '" Weight: lbs. oz. kg; 39.62 BMI Method: General Appearance: obese, other (tearful and anxious) HEENT: PERRL/EOMI, pharynx normal Neck: non-tender, full range of motion Respiratory: chest non-tender, lungs clear, normal breath sounds, no respiratory distress, no accessory muscle use Cardiovascular: normal peripheral pulses, regular rate, rhythm Gastrointestinal: normal bowel sounds, soft, no pulsatile mass; No distended, No guarding, No rebound; tenderness (diffuse) Extremities: normal range of motion, non-tender, normal capillary refill Neurologic/Psychiatric: alert, oriented x 3, other (anxious, tearful and apologizing repeatedly about being here with alcohol intoxication) Appearance/Memory: disheveled Behavior/Eye Contact: cooperative, good eye contact Thoughts/Hallucinations: no apparent hallucination Skin: normal color, warm/dry Progress/Results/Core Measures Results/Orders Lab Results Laboratory Tests Test 07/29/21 01:35 07/29/21 02:30 07/29/21 05:50 Range/Units White Blood Count 9.0 4.3-11.0 10^3/uL Red Blood Count 4.14 3.80-5.11 10^6/uL Hemoglobin 13.2 11.5-16.0 g/dL Hematocrit 38 35-52 % Mean Corpuscular Volume 92 80-99 fL Mean Corpuscular Hemoglobin 32 25-34 pg Mean Corpuscular Hemoglobin Concent 35 32-36 g/dL Red Cell Distribution Width 14.6 H 10.0-14.5 % Platelet Count 107 L 130-400 10^3/uL Mean Platelet Volume 9.6 9.0-12.2 fL Immature Granulocyte % (Auto) 0 % Neutrophils (%) (Auto) 49 42-75 % Lymphocytes (%) (Auto) 46 H 12-44 % Monocytes (%) (Auto) 5 0-12 % Eosinophils (%) (Auto) 0 0-10 % Basophils (%) (Auto) 0 0-10 % Neutrophils # (Auto) 4.4 1.8-7.8 10^3/uL Lymphocytes # (Auto) 4.1 H 1.0-4.0 10^3/uL Monocytes # (Auto) 0.4 0.0-1.0 10^3/uL Eosinophils # (Auto) 0.0 0.0-0.3 10^3/uL Basophils # (Auto) 0.0 0.0-0.1 10^3/uL Immature Granulocyte # (Auto) 0.0 0.0-0.1 10^3/uL Sodium Level 138 142 135-145 MMOL/L Potassium Level 3.0 L 3.4 L 3.6-5.0 MMOL/L Chloride Level 91 L 96 L 98-107 MMOL/L Carbon Dioxide Level 26 27 21-32 MMOL/L Anion Gap 21 H 19 H 5-14 MMOL/L Blood Urea Nitrogen 6 L 6 L 7-18 MG/DL Creatinine 0.69 0.70 0.60-1.30 MG/DL Estimat Glomerular Filtration Rate 99 98 BUN/Creatinine Ratio 9 9 Glucose Level 128 H 125 H 70-105 MG/DL Calcium Level 8.9 8.5 8.5-10.1 MG/DL Corrected Calcium 8.8 8.6 8.5-10.1 MG/DL Total Bilirubin 1.4 H 1.2 H 0.1-1.0 MG/DL Aspartate Amino Transf (AST/SGOT) 324 H 331 H 5-34 U/L Alanine Aminotransferase (ALT/SGPT) 93 H 93 H 0-55 U/L Alkaline Phosphatase 157 H 151 H 40-136 U/L Total Protein 7.0 6.8 6.4-8.2 GM/DL Albumin 4.1 3.9 3.2-4.5 GM/DL Salicylates Level < 0.3 L 5.0-20.0 MG/DL Acetaminophen Level < 10 L 10-30 UG/ML Serum Alcohol 279 H 142 H <10 MG/DL Urine Color YELLOW Urine Clarity CLEAR Urine pH 7.0 5-9 Urine Specific V[place]ell <=1.005 1.016-1.022 Urine Protein NEGATIVE NEGATIVE Urine Glucose (UA) NEGATIVE NEGATIVE Urine Ketones NEGATIVE NEGATIVE Urine Nitrite NEGATIVE NEGATIVE Urine Bilirubin NEGATIVE NEGATIVE Urine Urobilinogen 0.2 < = 1.0 MG/DL Urine Leukocyte Esterase NEGATIVE NEGATIVE Urine RBC (Auto) NEGATIVE NEGATIVE Urine RBC NONE /HPF Urine WBC NONE /HPF Urine Squamous Epithelial Cells 0-2 /HPF Urine Crystals NONE /LPF Urine Bacteria NEGATIVE /HPF Urine Casts NONE /LPF Urine Mucus NEGATIVE /LPF Urine Culture Indicated NO Urine Opiates Screen NEGATIVE NEGATIVE Urine Oxycodone Screen NEGATIVE NEGATIVE Urine Methadone Screen NEGATIVE NEGATIVE Urine Propoxyphene Screen NEGATIVE NEGATIVE Urine Barbiturates Screen NEGATIVE NEGATIVE Ur Tricyclic Antidepressants Screen NEGATIVE NEGATIVE Urine Phencyclidine Screen NEGATIVE NEGATIVE Urine Amphetamines Screen NEGATIVE NEGATIVE Urine Methamphetamines Screen NEGATIVE NEGATIVE Urine Benzodiazepines Screen NEGATIVE NEGATIVE Urine Cocaine Screen NEGATIVE NEGATIVE Urine Cannabinoids Screen NEGATIVE NEGATIVE My Orders Orders - COLTEN FRANKLIN MD Ua Culture If Indicated (07/29/21 01:15) Cbc With Automated Diff (07/29/21 01:15) Comprehensive Metabolic Panel (07/29/21 01:15) Alcohol (07/29/21 01:15) Drug Screen Stat (Urine) (07/29/21 01:15) Acetaminophen (07/29/21 01:15) Salicylate (07/29/21 01:15) Ekg Tracing (07/29/21 01:15) Ed Iv/Invasive Line Start (07/29/21 01:15) Monitor-Rhythm Ecg Trace Only (07/29/21 01:15) Ns Iv 1000 Ml (Sodium Chloride 0.9%) (07/29/21 01:15) Ondansetron Injection (Zofran Injectio (07/29/21 01:15) Pantoprazole Injection (Protonix Injecti (07/29/21 01:15) Ondansetron Injection (Zofran Injectio (07/29/21 01:50) Lactated Ringers (Lr 1000 Ml Iv Solution (07/29/21 04:08) Potassium Cl 10meq/50ml Ivpb (Kcl 10 Meq (07/29/21 04:08) Ondansetron Injection (Zofran Injectio (07/29/21 05:35) Comprehensive Metabolic Panel (07/29/21 05:46) Alcohol (07/29/21 05:46) Lorazepam Injection (Ativan Injection) (07/29/21 07:45) Vital Signs/I&O Progress Progress Note #1: Progress Note Obtain basic labs and alcohol level. Give a liter of normal saline IV fluids for hydration. Have her on cardiac telemetry monitoring in addition to obtaining electrocardiogram since she has a history of hypokalemia a month ago when she presented with similar complaints Progress Note #2: Progress Note Labs were showing stable CBC without acute significant abnormality. Her chemistry panel did show mild hypokalemia at 3.0. Her LFTs were slightly elevated with total bili 1.4. She also had elevation of her AST, ALT and alk phos. Her alcohol level was 279. Her acetaminophen and salicylate levels were 0. Her urine drug screen was negative. Her urine did not show signs of infection. Patient remained stable with normal blood pressure and heart rate. She has been resting in the room and has not had any vomiting or diarrhea here in the ED. She does have some apparent sleep apnea as when she falls asleep her O2 saturation does drift down to 88-89% but then she wakes herself up and it comes right back up. [address] Wheeler and with patient not exhibiting signs and symptoms of withdrawal such as hypertension, tachycardia, or seizures and her hypokalemia is not as severe as when she was admitted for this in June. Will try additional hydration with supplemental potassium and see how she is doing with a recheck of alcohol level around 6 am. Progress Note #3: Time: 07:00 Progress Note Recheck of chemistry shows improved electrolytes with potassium up to 3.4. LFTs improved as well. Alcohol level down to 142. She has still not had any diarrhea or emesis here in the ED. She has heart rate 90-100 bpm and is not hypertensive. Will continue with plan for outpatient treatment and try treating with Librium scheduled taper and Zofran prn for nausea. Encouraged to drink fluids and check with [facility] and [facility] about help with alcohol detox and to stay sober Initial ECG Impression Date: Jul 29, 2021 Initial ECG Impression Time: 02:06 Initial ECG Rate: 85 Initial ECG Rhythm: Normal Sinus Initial ECG Comparisson: Unchanged Comment Normal sinus rhythm with a heart rate of 85 bpm. NE interval 155 ms. Low voltage precordial leads. Prolonged QT interval of 423 ms with a QTc interval of [address] elevation. Appears similar to prior tracings in the system. Departure Impression Primary Impression: Alcohol intoxication Qualified Codes: F10.920 - Alcohol use, unspecified with intoxication, uncomplicated Disposition: 01 HOME, SELF-CARE Condition: Stable Departure-Patient Inst. Decision time for Depature: 07:33 Referrals: SUNNY FUNEZ MD (PCP/Family) Primary Care Physician Patient Instructions: ALCOHOL AND SUBSTANCE ABUSE, Alcohol Intoxication ED, Alcohol Use Disorder ED Add. Discharge Instructions: Work with Dr. Funez and [facility] clinic as well as the [facility] about your alcohol abuse. All discharge instructions reviewed with patient and/or family. Voiced understanding. Scripts Chlordiazepoxide HCl (Chlordiazepoxide HCl) 25 Mg Capsule 25 MG PO UD for Alcohol Withdrawal for 4 Days, #15 CAP 0 Refills 50 mg (2 caps) by mouth every 6 hours day 1, 25 mg by mouth every 6 hours day 2, 25 mg by mouth every 12 hours day 3, 25 mg by mouth at bedtime day 4, then stop Prov: COLTEN FRANKLIN MD 07/29/21 Ondansetron (Ondansetron Odt) 4 Mg Tab.rapdis 4 MG PO Q6H PRN for NAUSEA/VOMITING for 4 Days, #16 TAB 0 Refills Prov: COLTEN FRANKLIN MD 07/29/21 COLTEN FRANKLIN MD Jul 29, 2021 01:24
[2021-07-29] MEDS ORDERED: ONDANSETRON 4 MG/2 ML (SDV) Z0FRAN ONE (01:50)
[2021-07-29 01:53] LABS: BASOPHILS % (AUTO) 0 % (0-10); EOSINOPHILS % (AUTO) 0 % (0-10); HEMATOCRIT 38 % (35-52); HEMOGLOBIN 13.2 g/dL (11.5-16.0); LYMPHOCYTES # (AUTO) 4.1 10^3/uL (1.0-4.0); LYMPHOCYTES % (AUTO) 46 % (12-44); MEAN CORPUSCULAR HEMOGLOBIN 32 pg (25-34); MEAN CORPUSCULAR HGB CONC 35 g/dL (32-36); MEAN CORPUSCULAR VOLUME 92 fL (80-99); MEAN PLATELET VOLUME 9.6 fL (9.0-12.2); MONOCYTES # (AUTO) 0.4 10^3/uL (0.0-1.0); MONOCYTES % (AUTO) 5 % (0-12); NEUTROPHILS # (AUTO) 4.4 10^3/uL (1.8-7.8); NEUTROPHILS % (AUTO) 49 % (42-75); PLATELET COUNT 107 10^3/uL (130-400)
[2021-07-29 02:16] LABS: ACETAMINOPHEN < 10 UG/ML (10-30); ALANINE AMINOTRANSFERASE 93 U/L (0-55); ALBUMIN 4.1 GM/DL (3.2-4.5); ALKALINE PHOSPHATASE 157 U/L (40-136); BILIRUBIN,TOTAL 1.4 MG/DL (0.1-1.0); BUN/CREATININE RATIO 9; CALCIUM 8.9 MG/DL (8.5-10.1); CARBON DIOXIDE 26 MMOL/L (21-32); CHLORIDE 91 MMOL/L (98-107); CREATININE SERUM 0.69 MG/DL (0.60-1.30); GFR ESTIMATED 99; GLUCOSE 128 MG/DL (70-105); SALICYLATE < 0.3 MG/DL (5.0-20.0); SODIUM 138 MMOL/L (135-145)
[2021-07-29 02:40] LABS: BILIRUBIN,URINE NEGATIVE (NEGATIVE); CLARITY,URINE CLEAR; COLOR,URINE YELLOW; GLUCOSE, URINE (UA) NEGATIVE (NEGATIVE); KETONES,URINE NEGATIVE (NEGATIVE); LEUKOCYTE ESTERASE ,URINE NEGATIVE (NEGATIVE); NITRITE,URINE NEGATIVE (NEGATIVE); PROTEIN,URINE NEGATIVE (NEGATIVE)
[2021-07-29 02:49] LABS: BACTERIA,URINE NEGATIVE /HPF; SQUAMOUS EPITHELIAL CELL,UR 0-2 /HPF
[2021-07-29 02:52] LABS: AMPHETAMINE SCREEN, URINE NEGATIVE (NEGATIVE); BARBITURATE SCREEN URINE NEGATIVE (NEGATIVE); BENZODIAZEPINES SCREEN URINE NEGATIVE (NEGATIVE); CANNABINOID SCREEN, URINE NEGATIVE (NEGATIVE); COCAINE SCREEN URINE NEGATIVE (NEGATIVE); METHADONE STAT NEGATIVE (NEGATIVE); METHAMPHETAMINE SCREEN URINE S NEGATIVE (NEGATIVE); OPIATE SCREEN URINE NEGATIVE (NEGATIVE); OXYCODONE STAT NEGATIVE (NEGATIVE); PROPOXYPHENE STAT NEGATIVE (NEGATIVE); TRICYCLIC ANTIDEPRESSANTS SCRE NEGATIVE (NEGATIVE)
[2021-07-29] MEDS ORDERED: POTASSIUM CL 10MEQ/50ML IVPB 50 ML IV STA (04:08)
[2021-07-29] MEDS ORDERED: LACTATED RINGERS 1,000 ML IV STA (04:08)
[2021-07-29 06:24] LABS: BILIRUBIN,TOTAL 1.2 MG/DL (0.1-1.0); CALCIUM 8.5 MG/DL (8.5-10.1); CREATININE SERUM 0.7 MG/DL (0.60-1.30); POTASSIUM 3.4 MMOL/L (3.6-5.0)
[2021-07-29 06:25] LABS: ALBUMIN 3.9 GM/DL (3.2-4.5); TOTAL PROTEIN 6.8 GM/DL (6.4-8.2)
[2021-07-29] MEDS ORDERED: ONDA4TAB11 PO (07:35)
[2021-07-29] MEDS ORDERED: CHLO25CA10 PO ×2 (07:35→07:45)
[2021-07-29] MEDS ORDERED: LORazepam INJ 2 MG/ML (ATIVAN) VIAL IVP ONE (07:45)
[2021-07-29 07:50] VITALS: BP 164/81
== END 2021-07-29 07:51 | disposition home or self-care (01) ==
LOC: EDUNIT# 01:01 → ER FS 01:03
DX: F10.129 Alcohol abuse with intoxication, unspecified (principal); F31.9 Bipolar disorder, unspecified; E66.9 Obesity, unspecified; Z68.39 Body mass index [BMI] 39.0-39.9, adult; Z79.899 Other long term (current) drug therapy; Z79.01 Long term (current) use of anticoagulants
CPT/HCPCS: 36415; 80053; 80306; 81000; 85025; 93005; 93041; 99284; G0480 ×3; 80320; 80329

== ENCOUNTER 2021-07-29 08:07 | Emergency (ER) | payer MEDICAID ==
[~2021-07-29 08:07] MED LIST changes: +CHLO25CA10 PO; +ONDA4TAB11 PO
== END 2021-07-29 08:17 | disposition left against medical advice (07) ==
LOC: EDUNIT# 08:07 → ER FS 08:08
DX: R45.851 Suicidal ideations (principal)

== ENCOUNTER 2021-11-22 10:21 | Emergency (ER) | payer MEDICAID ==
--- NOTE | 2021-11-22 10:24 | ED General ---
General Chief Complaint: Suicidal Ideation Risk Stated Complaint: SUICIDAL IDEATION History of Present Illness Date Seen by Provider: Nov 22, 2021 Time Seen by Provider: 10:25 Initial Comments Pt left without being fully examined since there was a critical patient in the ER, and pt did not want to wait. I saw the pt to explain to her that there will be a wait. No exam done but I visualized vitals and it was unremarkable for criticality Allergies and Home Medications Allergies Coded Allergies: cephalexin (Verified Allergy, Severe, 06/27/21) Patient Home Medication List Home Medication List Reviewed: Yes Apixaban (Eliquis) 5 Mg Tablet, 5 MG PO BID Prescribed by: BENY WHEELER on 07/01/21 1155 Ascorbic Acid (Vitamin C) 500 Mg Capsule, 500 MG PO DAILY, (Reported) Entered as Reported by: INGRID SLADE on 06/28/21 0833 Chlordiazepoxide HCl (Chlordiazepoxide HCl) 25 Mg Capsule, 25 MG PO UD Prescribed by: COLTEN FRANKLIN on 07/29/21 0745 Cholecalciferol (Vitamin D3) (Vitamin D3) 25 Mcg Tablet, 25 MCG PO DAILY, (Reported) Entered as Reported by: INGRID SLADE on 06/28/21 0833 Cyanocobalamin (Vitamin B-12) (Vitamin B12) 2,500 Mcg Tablet, 2,500 MCG PO DAILY, (Reported) Entered as Reported by: INGRID SLADE on 06/28/21 0832 Ferrous Sulfate (Iron) 325 Mg Tablet, 325 MG PO DAILY Prescribed by: BENY WHEELER on 07/01/21 1155 Hydrochlorothiazide (Hydrochlorothiazide) 25 Mg Tablet, 25 MG PO DAILY Prescribed by: BENY WHEELER on 07/01/21 1155 Hydrocodone/Acetaminophen (Hydrocodone-Acetamin 7.5-325) 1 Each Tablet, 1 EACH PO Q6H PRN for PAIN-MODERATE (5-7) Prescribed by: BENY WHEELER on 07/01/21 1156 Loperamide HCl (Imodium A-D) 1 Mg/7.5 Ml Liquid, 1 MG PO Q4H PRN for DIARRHEA, (Reported) Entered as Reported by: INGRID SLADE on 06/28/21 0834 Metoprolol Succinate (Metoprolol Succinate) 100 Mg Tab.er.24h, 100 MG PO DAILY Prescribed by: BENY WHEELER on 07/01/21 1155 Ondansetron (Ondansetron Odt) 4 Mg Tab.rapdis, 4 MG PO Q6H PRN for NAUSEA/VOMITING Prescribed by: COLTEN FRANKLIN on 07/29/21 0735 Potassium Chloride (Potassium Chloride) 10 Meq Tab.er.prt, 10 MEQ PO DAILY Prescribed by: BENY WHEELER on 07/01/21 1155 Pramipexole Di-HCl (Pramipexole Dihydrochloride) 0.5 Mg Tablet, 0.5 MG PO HS Prescribed by: BENY WHEELER on 07/01/21 1155 Quetiapine Fumarate (Quetiapine Fumarate) 200 Mg Tablet, 200 MG PO HS Prescribed by: BENY WHEELER on 07/01/21 1155 Review of Systems Review of Systems Constitutional: no symptoms reported Physical Exam Vital Signs Capillary Refill : Height, Weight, BMI Height: '" Weight: lbs. oz. kg; BMI Method: General Appearance: No Apparent Distress, WD/WN Progress/Results/Core Measures Suspected Sepsis SIRS Temperature: Pulse: Respiratory Rate: Blood Pressure / Mean: Results/Orders My Orders Orders - BABATUNDE FOSTER MD Ekg Tracing (11/22/21 10:24) Acetaminophen (11/22/21 12:44) Alcohol (11/22/21 12:44) Cbc With Automated Diff (11/22/21 12:44) Comprehensive Metabolic Panel (11/22/21 12:44) Drug Screen Stat (Urine) (11/22/21 12:44) Lactic Acid Analyzer (11/22/21 12:44) Magnesium (11/22/21 12:44) Salicylate (11/22/21 12:44) Ua Culture If Indicated (11/22/21 12:44) Ekg Tracing (11/22/21 12:45) Vital Signs/I&O Capillary Refill : Progress Note : Progress Note Pt left without being fully examined since there was a critical patient in the ER, and pt did not want to wait. I saw the pt to explain to her that there will be a wait. No exam done but I visualized vitals and it was unremarkable for criticality Departure Impression Primary Impression: Patient left without being seen Disposition: 07 AGAINST MEDICAL ADVICE Condition: Stable Departure-Patient Inst. Patient Instructions: OUTPT MENTAL HEALTH SERVICES BABATUNDE FOSTER MD Nov 22, 2021 10:24
[2021-11-23] MEDS ORDERED: NITR100C PO (01:21)
== END 2021-11-22 11:55 | disposition left against medical advice (07) ==
LOC: EDUNIT# 10:21 → ER FS 10:23
DX: R45.851 Suicidal ideations (principal)
CPT/HCPCS: 83605

== ENCOUNTER 2021-11-22 19:20 | Emergency (ER) | payer MEDICAID ==
[~2021-11-22] VITALS: Ht 165 cm; Wt 90.7 kg
[2021-11-22] MEDS ORDERED: NS IV 1000 ML 1,000 ML IV SCH ×2 (19:30→21:45)
--- NOTE | 2021-11-22 19:33 | ED Psychosocial ---
General Chief Complaint: Psych/Social Disorder Stated Complaint: PSYCH EVAL Nursing Triage Note: Pt c/o feeling anxious and possibly having a panic attack. Pt reports drinking vodka today and stated "I just need something to help me sleep." Pt denies SI/HI or using any other drugs. History of Present Illness Date Seen by Provider: Nov 22, 2021 Time Seen by Provider: 19:26 Initial Comments 61-year-old female with PMH of alcohol addiction and abuse/BPD/anxiety, is here with complaints of alcohol intoxication and panic attack which has been going on all day today. Patient has run out of her Seroquel which she takes at night, and has not taken it for the past 3 days. Patient states that she has moved here from [place] and has not yet set up care with a primary care physician. Patient denies drug abuse, abdominal pain, nausea and vomiting, fever, chest p ain or shortness of breath. Patient also came earlier in the morning but left AMA. Allergies and Home Medications Allergies Coded Allergies: cephalexin (Verified Allergy, Severe, 06/27/21) Patient Home Medication List Home Medication List Reviewed: Yes Apixaban (Eliquis) 5 Mg Tablet, 5 MG PO BID Prescribed by: BENY WHEELER on 07/01/21 1155 Ascorbic Acid (Vitamin C) 500 Mg Capsule, 500 MG PO DAILY, (Reported) Entered as Reported by: INGRID SLADE on 06/28/21 0833 Chlordiazepoxide HCl (Chlordiazepoxide HCl) 25 Mg Capsule, 25 MG PO UD Prescribed by: COLTEN FRANKLIN on 07/29/21 0745 Cholecalciferol (Vitamin D3) (Vitamin D3) 25 Mcg Tablet, 25 MCG PO DAILY, (Reported) Entered as Reported by: INGRID SLADE on 06/28/21 0833 Cyanocobalamin (Vitamin B-12) (Vitamin B12) 2,500 Mcg Tablet, 2,500 MCG PO DAILY, (Reported) Entered as Reported by: INGRID SLADE on 06/28/21 0832 Ferrous Sulfate (Iron) 325 Mg Tablet, 325 MG PO DAILY Prescribed by: BENY WHEELER on 07/01/21 1155 Hydrochlorothiazide (Hydrochlorothiazide) 25 Mg Tablet, 25 MG PO DAILY Prescribed by: BENY WHEELER on 07/01/21 1155 Hydrocodone/Acetaminophen (Hydrocodone-Acetamin 7.5-325) 1 Each Tablet, 1 EACH PO Q6H PRN for PAIN-MODERATE (5-7) Prescribed by: BENY WHEELER on 07/01/21 1156 Loperamide HCl (Imodium A-D) 1 Mg/7.5 Ml Liquid, 1 MG PO Q4H PRN for DIARRHEA, (Reported) Entered as Reported by: INGRID SLADE on 06/28/21 0834 Metoprolol Succinate (Metoprolol Succinate) 100 Mg Tab.er.24h, 100 MG PO DAILY Prescribed by: BENY WHEELER on 07/01/21 1155 Nitrofurantoin Macrocrystal (Nitrofurantoin) 100 Mg Capsule, 100 MG PO BID Prescribed by: BABATUNDE FOSTER MD on 11/23/21 0121 Last Action: New Order Ondansetron (Ondansetron Odt) 4 Mg Tab.rapdis, 4 MG PO Q6H PRN for NAUSEA/VOMITING Prescribed by: COLTEN FRANKLIN on 07/29/21 0735 Potassium Chloride (Potassium Chloride) 10 Meq Tab.er.prt, 10 MEQ PO DAILY Prescribed by: BENY WHEELER on 07/01/21 1155 Pramipexole Di-HCl (Pramipexole Dihydrochloride) 0.5 Mg Tablet, 0.5 MG PO HS Prescribed by: BENY WHEELER on 07/01/21 1155 Quetiapine Fumarate (Quetiapine Fumarate) 200 Mg Tablet, 200 MG PO HS Prescribed by: BENY WHEELER on 07/01/21 1155 Review of Systems Constitutional: no symptoms reported EENTM: no symptoms reported Respiratory: no symptoms reported Cardiovascular: no symptoms reported Gastrointestinal: no symptoms reported Genitourinary: no symptoms reported Musculoskeletal: no symptoms reported Skin: no symptoms reported Psychiatric/Neurological: Anxiety, Other (alcohol intoxication) Past Wdescis-Vcjeuw-Iseikx Hx Immunizations Up To Date First/Initial COVID19 Vaccinat: JAN 2021 Past Medical History Surgery/Hospitalization HX: Alcohol Abuse, Bipolar Surgeries: Yes Abdominal, Appendectomy, Gallbladder Psychosocial: Yes Bipolar Family Medical History No Pertinent Family Hx Physical Exam Vital Signs - First Documented 11/22/21 19:20 Temp 37.0 Pulse 129 Resp 18 B/P (MAP) 134/92 (106) Pulse Ox 98 O2 Delivery Room Air Capillary Refill : Less Than 3 Seconds Height, Weight, BMI Height: '" Weight: lbs. oz. kg; 35.00 BMI Method: General Appearance: mild distress HEENT: PERRL/EOMI Neck: full range of motion Respiratory: chest non-tender, lungs clear, normal breath sounds Cardiovascular: normal peripheral pulses, regular rate, rhythm Gastrointestinal: normal bowel sounds, non tender, soft Neurologic/Psychiatric: no motor/sensory deficits, alert, oriented x 3, other (intoxicated, anxious and agitated) Behavior/Eye Contact: normal speech, increased rate of speech, other (anxious) Progress/Results/Core Measures Results/Orders Lab Results Laboratory Tests Test 11/22/21 19:50 11/22/21 20:36 11/22/21 22:40 Range/Units White Blood Count 8.5 4.3-11.0 10^3/uL Red Blood Count 4.22 3.80-5.11 10^6/uL Hemoglobin 13.2 11.5-16.0 g/dL Hematocrit 38 35-52 % Mean Corpuscular Volume 90 80-99 fL Mean Corpuscular Hemoglobin 31 25-34 pg Mean Corpuscular Hemoglobin Concent 35 32-36 g/dL Red Cell Distribution Width 15.4 H 10.0-14.5 % Platelet Count 113 L 130-400 10^3/uL Mean Platelet Volume 10.6 9.0-12.2 fL Immature Granulocyte % (Auto) 1 % Neutrophils (%) (Auto) 54 42-75 % Lymphocytes (%) (Auto) 40 12-44 % Monocytes (%) (Auto) 5 0-12 % Eosinophils (%) (Auto) 0 0-10 % Basophils (%) (Auto) 0 0-10 % Neutrophils # (Auto) 4.6 1.8-7.8 X 10^3 Lymphocytes # (Auto) 3.4 1.0-4.0 X 10^3 Monocytes # (Auto) 0.5 0.0-1.0 X 10^3 Eosinophils # (Auto) 0.0 0.0-0.3 10^3/uL Basophils # (Auto) 0.0 0.0-0.1 10^3/uL Immature Granulocyte # (Auto) 0.0 0.0-0.1 10^3/uL Percent Immature Platelet Fraction 4.9 0.0-7.6 % Sodium Level 138 135-145 MMOL/L Potassium Level 4.1 3.6-5.0 MMOL/L Chloride Level 96 L 98-107 MMOL/L Carbon Dioxide Level 20 L 21-32 MMOL/L Anion Gap 22 H 5-14 MMOL/L Blood Urea Nitrogen 10 7-18 MG/DL Creatinine 0.97 0.60-1.30 MG/DL Estimat Glomerular Filtration Rate 66 BUN/Creatinine Ratio 10 Glucose Level 96 70-105 MG/DL Calcium Level 8.6 8.5-10.1 MG/DL Corrected Calcium 8.2 L 8.5-10.1 MG/DL Magnesium Level 1.8 1.6-2.4 MG/DL Total Bilirubin 1.4 H 0.1-1.0 MG/DL Aspartate Amino Transf (AST/SGOT) 225 H 5-34 U/L Alanine Aminotransferase (ALT/SGPT) 118 H 0-55 U/L Alkaline Phosphatase 239 H 40-136 U/L Total Protein 7.6 6.4-8.2 GM/DL Albumin 4.5 3.2-4.5 GM/DL Lipase 16 8-78 U/L Salicylates Level < 0.3 L 5.0-20.0 MG/DL Acetaminophen Level < 10 L 10-30 UG/ML Serum Alcohol 346 *H <10 MG/DL Urine Color YELLOW Urine Clarity SL CLOUDY Urine pH 6.0 5-9 Urine Specific [place] 1.025 H 1.016-1.022 Urine Protein TRACE H NEGATIVE Urine Glucose (UA) NEGATIVE NEGATIVE Urine Ketones 1+ H NEGATIVE Urine Nitrite POSITIVE H NEGATIVE Urine Bilirubin NEGATIVE NEGATIVE Urine Urobilinogen 0.2 < = 1.0 MG/DL Urine Leukocyte Esterase NEGATIVE NEGATIVE Urine RBC (Auto) TRACE-I H NEGATIVE Urine RBC NONE /HPF Urine WBC RARE /HPF Urine Squamous Epithelial Cells RARE /HPF Urine Crystals NONE /LPF Urine Bacteria LARGE H /HPF Urine Casts NONE /LPF Urine Mucus NEGATIVE /LPF Urine Culture Indicated YES Urine Opiates Screen NEGATIVE NEGATIVE Urine Oxycodone Screen NEGATIVE NEGATIVE Urine Methadone Screen NEGATIVE NEGATIVE Urine Propoxyphene Screen NEGATIVE NEGATIVE Urine Barbiturates Screen NEGATIVE NEGATIVE Ur Tricyclic Antidepressants Screen POSITIVE H NEGATIVE Urine Phencyclidine Screen NEGATIVE NEGATIVE Urine Amphetamines Screen NEGATIVE NEGATIVE Urine Methamphetamines Screen NEGATIVE NEGATIVE Urine Benzodiazepines Screen NEGATIVE NEGATIVE Urine Cocaine Screen NEGATIVE NEGATIVE Urine Cannabinoids Screen NEGATIVE NEGATIVE My Orders Orders - CRISTIAN,BABATUNDE L MD Alcohol (11/22/21 19:30) Cbc With Automated Diff (11/22/21 19:30) Comprehensive Metabolic Panel (11/22/21 19:30) Drug Screen Stat (Urine) (11/22/21 19:30) Lipase (11/22/21 19:30) Magnesium (11/22/21 19:30) Ua Culture If Indicated (11/22/21 19:30) Ed Iv/Invasive Line Start (11/22/21 19:30) Ns Iv 1000 Ml (Sodium Chloride 0.9%) (11/22/21 19:30) Thiamine Injection (Vitamin B-1 Injectio (11/22/21 20:19) Acetaminophen (11/22/21 20:26) Salicylate (11/22/21 20:26) Thiamine Injection (Vitamin B-1 Injectio (11/22/21 20:34) Ns (Ivpb) (Sodium Chloride 0.9% Ivpb Bag (11/22/21 20:34) Urine Culture (11/22/21 20:36) Lorazepam Injection (Ativan Injection) (11/22/21 21:00) Lorazepam Injection (Ativan Injection) (11/22/21 21:30) Ed Iv/Invasive Line Start (11/22/21 21:38) Ns Iv 1000 Ml (Sodium Chloride 0.9%) (11/22/21 21:45) Nitrofurantoin Capsule,Macro (Macrobid C (11/22/21 21:45) Alcohol (11/22/21 22:42) Medications Given in ED Current Medications Medications Dose Ordered Sig/Gallito Route Start Time Stop Time Status Last Admin Dose Admin Lorazepam 0.5 mg ONCE ONCE IVP 11/22/21 21:00 11/22/21 21:01 DC 11/22/21 20:58 0.5 MG Lorazepam 1 mg ONCE ONCE IVP 11/22/21 21:30 11/22/21 21:31 DC 11/22/21 21:30 1 MG Nitrofurantoin Macrocrystals 100 mg ONCE ONCE PO 11/22/21 21:45 11/22/21 21:50 DC 11/22/21 21:51 100 MG Vital Signs/I&O 11/22/21 11/22/21 19:20 21:10 Temp 37.0 Pulse 129 119 Resp 18 17 B/P (MAP) 134/92 (106) Pulse Ox 98 96 O2 Delivery Room Air Room Air Blood Pressure Mean: 106 Progress Progress Note : Progress Note 1. ALCOHOL INTOXICATION: -s. ETOH 346 - Labs unremarkable - NS IVF bolus x 2, Thiamine iv - alcohol cessation counselling - pt wants to go to detox 2. ANXIETY ATTACK: - UDS: Benzos - Ativan 0.5mg , then later 1mg 3. UTI: - UA positive for infection - Nitrofurantoin 100 mg bid for 7 days Diagnostic Imaging Plain Films/CT/US/NM/MRI: other (spine) Departure Impression Primary Impression: UTI (urinary tract infection) Qualified Codes: N30.01 - Acute cystitis with hematuria Additional Impressions: Alcohol intoxication Qualified Codes: F10.929 - Alcohol use, unspecified with intoxication, unspecified Alcohol dependence Qualified Codes: F10.288 - Alcohol dependence with other alcohol-induced disorder Acute anxiety Disposition: HOME, SELF-CARE Condition: Stable Departure-Patient Inst. Referrals: SUNNY FUNEZ MD (PCP/Family) Primary Care Physician Patient Instructions: Alcohol Intoxication ED, Effects of Alcohol on Your Health, Urinary Tract Infection, Adult (DC) Add. Discharge Instructions: Follow up with PCP in the next 1 to 3 days - Alcohol cessation counselling - Nitrofurantoin 100mg bid for 7 days All discharge instructions reviewed with patient and/or family. Voiced understanding. Scripts Nitrofurantoin Macrocrystal (Nitrofurantoin) 100 Mg Capsule 100 MG PO BID for 7 Days, #14 CAP Prov: BABATUNDE FOSTER MD 11/23/21 BABATUNDE FOSTER MD Nov 22, 2021 19:33
[2021-11-22 20:02] LABS: HEMATOCRIT 38 % (35-52); HEMOGLOBIN 13.2 g/dL (11.5-16.0); MEAN CORPUSCULAR HEMOGLOBIN 31 pg (25-34); MEAN CORPUSCULAR VOLUME 90 fL (80-99); WHITE BLOOD COUNT 8.5 10^3/uL (4.3-11.0)
[2021-11-22 20:03] LABS: BASOPHILS % (AUTO) 0 % (0-10); EOSINOPHILS % (AUTO) 0 % (0-10); LYMPHOCYTES # (AUTO) 3.4 X 10^3 (1.0-4.0); LYMPHOCYTES % (AUTO) 40 % (12-44); MEAN CORPUSCULAR HGB CONC 35 g/dL (32-36); MEAN PLATELET VOLUME 10.6 fL (9.0-12.2); MONOCYTES # (AUTO) 0.5 X 10^3 (0.0-1.0); MONOCYTES % (AUTO) 5 % (0-12); NEUTROPHILS # (AUTO) 4.6 X 10^3 (1.8-7.8); NEUTROPHILS % (AUTO) 54 % (42-75); PLATELET COUNT 113 10^3/uL (130-400)
[2021-11-22] MEDS ORDERED: THIAMINE INJECTION 100 MG in NS (IVPB) 50 ML IV STA (20:19)
[2021-11-22 20:20] LABS: BILIRUBIN,TOTAL 1.4 MG/DL (0.1-1.0); CALCIUM 8.6 MG/DL (8.5-10.1); CREATININE SERUM 0.97 MG/DL (0.60-1.30); MAGNESIUM 1.8 MG/DL (1.6-2.4); POTASSIUM 4.1 MMOL/L (3.6-5.0); TOTAL PROTEIN 7.6 GM/DL (6.4-8.2)
[2021-11-22 20:21] LABS: ALBUMIN 4.5 GM/DL (3.2-4.5)
[2021-11-22] MEDS ORDERED: NS (IVPB) 50 ML ONE (20:34)
[2021-11-22] MEDS ORDERED: THIAMINE 100 MG/ML 2 ML (VITAMIN B-1) VIAL ONE (20:34)
[2021-11-22 20:45] LABS: BILIRUBIN,URINE NEGATIVE (NEGATIVE); CLARITY,URINE SL CLOUDY; COLOR,URINE YELLOW; GLUCOSE, URINE (UA) NEGATIVE (NEGATIVE); KETONES,URINE 1+ (NEGATIVE); LEUKOCYTE ESTERASE ,URINE NEGATIVE (NEGATIVE); NITRITE,URINE POSITIVE (NEGATIVE); PROTEIN,URINE TRACE (NEGATIVE)
[2021-11-22 20:46] LABS: ACETAMINOPHEN < 10 UG/ML (10-30); SALICYLATE < 0.3 MG/DL (5.0-20.0)
[2021-11-22 20:51] LABS: BACTERIA,URINE LARGE /HPF; SQUAMOUS EPITHELIAL CELL,UR RARE /HPF; WBC,URINE RARE /HPF
[2021-11-22 20:54] LABS: AMPHETAMINE SCREEN, URINE NEGATIVE (NEGATIVE); BARBITURATE SCREEN URINE NEGATIVE (NEGATIVE); BENZODIAZEPINES SCREEN URINE NEGATIVE (NEGATIVE); CANNABINOID SCREEN, URINE NEGATIVE (NEGATIVE); COCAINE SCREEN URINE NEGATIVE (NEGATIVE); METHADONE STAT NEGATIVE (NEGATIVE); OPIATE SCREEN URINE NEGATIVE (NEGATIVE); OXYCODONE STAT NEGATIVE (NEGATIVE); PROPOXYPHENE STAT NEGATIVE (NEGATIVE); TRICYCLIC ANTIDEPRESSANTS SCRE POSITIVE (NEGATIVE)
[2021-11-22] MEDS ORDERED: LORazepam INJ 2 MG/ML (ATIVAN) VIAL IVP ONE ×2 (21:00→21:30)
[2021-11-22] MEDS ORDERED: NITROFURANTOIN 100 MG (MACROBID) CAPSULE PO ONE (21:45)
[2021-11-23 01:20] VITALS: BP 142/85
[2021-11-23] MEDS ORDERED: NITR100C PO (01:21)
== END 2021-11-23 01:20 | disposition home or self-care (01) ==
LOC: EDUNIT# 19:20 → ER FS 19:21
DX: F41.0 Panic disorder [episodic paroxysmal anxiety] (principal); F10.229 Alcohol dependence with intoxication, unspecified; N39.0 Urinary tract infection, site not specified; T43.596A Underdosing of other antipsychotics and neuroleptics, initial encounter; Z91.14 Patient's other noncompliance with medication regimen; Z90.49 Acquired absence of other specified parts of digestive tract; Y90.8 Blood alcohol level of 240 mg/100 ml or more
CPT/HCPCS: 36415; 80053; 80306; 81000; 83690; 83735; 85025; 87088; 99284; G0480 ×3; 80320; 80329; 87077; 87186

== ENCOUNTER 2021-11-25 18:09 | Inpatient (IN) | payer MEDICAID ==
[~2021-11-25] VITALS: Ht 163 cm; Wt 105.3 kg
[~2021-11-25 18:09] MED LIST changes: +NITR100C PO
[2021-11-25] MEDS ORDERED: MAGNESIUM 1 GM/100 ML IVPB 100 ML IV STA ×2 (18:16→20:08)
[2021-11-25] MEDS ORDERED: dilTIAZem DRIP PRE-MIX 125 ML IV STA (18:16)
--- NOTE | 2021-11-25 18:24 | ED General ---
General Chief Complaint: General Problems/Pain Stated Complaint: CP,SOA Source of Information: Patient, EMS Exam Limitations: No Limitations History of Present Illness Date Seen by Provider: Nov 25, 2021 Time Seen by Provider: 18:10 Initial Comments 61-year-old female with past medical history of A. fib on Eliquis, chronic respiratory failure with hypoxia on roughly 2 L baseline oxygen, hypertension, alcohol use disorder coming in via EMS from home due to 3 days of chest pain, shortness of breath, and worsening anxiety. She drinks about 1/5 of alcohol per day. She stopped cold turkey 3 days ago trying to get into rehab. Symptoms started around that time. EMS reports A. fib with RVR ranging from 120s to 180s . They gave 25 mg of Cardizem with improvement to around 110. They also gave 1 L bolus of IV fluids. Oxygen was 88% on her baseline 2 L on arrival. She says she is also felt nauseous. Had COVID roughly 4 to 5 months ago, and says she has been on oxygen since then. Says she has not taken any of her medicines for 3 days including her Eliquis. Allergies and Home Medications Allergies Coded Allergies: cephalexin (Verified Allergy, Severe, 06/27/21) Patient Home Medication List Home Medication List Reviewed: Yes Apixaban (Eliquis) 5 Mg Tablet, 5 MG PO BID Prescribed by: BENY WHEELER on 07/01/21 1155 Ascorbic Acid (Vitamin C) 500 Mg Capsule, 500 MG PO DAILY, (Reported) Entered as Reported by: INGRID SLADE on 06/28/21 0833 Chlordiazepoxide HCl (Chlordiazepoxide HCl) 25 Mg Capsule, 25 MG PO UD Prescribed by: COLTEN FRANKLIN on 07/29/21 0745 Cholecalciferol (Vitamin D3) (Vitamin D3) 25 Mcg Tablet, 25 MCG PO DAILY, (Rep orted) Entered as Reported by: INGRID SLADE on 06/28/21 0833 Cyanocobalamin (Vitamin B-12) (Vitamin B12) 2,500 Mcg Tablet, 2,500 MCG PO DAILY, (Reported) Entered as Reported by: INGRID SLADE on 06/28/21 0832 Ferrous Sulfate (Iron) 325 Mg Tablet, 325 MG PO DAILY Prescribed by: BENY WHEELER on 07/01/21 1155 Hydrochlorothiazide (Hydrochlorothiazide) 25 Mg Tablet, 25 MG PO DAILY Prescribed by: BENY WHEELER on 07/01/21 1155 Hydrocodone/Acetaminophen (Hydrocodone-Acetamin 7.5-325) 1 Each Tablet, 1 EACH PO Q6H PRN for PAIN-MODERATE (5-7) Prescribed by: BENY WHEELER on 07/01/21 1156 Loperamide HCl (Imodium A-D) 1 Mg/7.5 Ml Liquid, 1 MG PO Q4H PRN for DIARRHEA, (Reported) Entered as Reported by: INGRID SLADE on 06/28/21 0834 Metoprolol Succinate (Metoprolol Succinate) 100 Mg Tab.er.24h, 100 MG PO DAILY Prescribed by: BENY WHEELER on 07/01/21 115 Nitrofurantoin Macrocrystal (Nitrofurantoin) 100 Mg Capsule, 100 MG PO BID Prescribed by: BABATUNDE FOSTER MD on 11/23/21 0121 Ondansetron (Ondansetron Odt) 4 Mg Tab.rapdis, 4 MG PO Q6H PRN for NAUSEA/VOMITING Prescribed by: COLTEN FRANKLIN on 07/29/21 0735 Potassium Chloride (Potassium Chloride) 10 Meq Tab.er.prt, 10 MEQ PO DAILY Prescribed by: BENY WHEELER on 07/01/21 1155 Pramipexole Di-HCl (Pramipexole Dihydrochloride) 0.5 Mg Tablet, 0.5 MG PO HS Prescribed by: BENY WHEELER on 07/01/21 115 Quetiapine Fumarate (Quetiapine Fumarate) 200 Mg Tablet, 200 MG PO HS Prescribed by: BENY WHEELER on 07/01/21 1155 Review of Systems Review of Systems Constitutional: No fever EENTM: No blurred vision Respiratory: No cough; short of breath Cardiovascular: chest pain Gastrointestinal: No abdominal pain; nausea Genitourinary: no symptoms reported Musculoskeletal: no symptoms reported Skin: no symptoms reported Psychiatric/Neurological: Anxiety Hematologic/Lymphatic: No Symptoms Reported Immunological/Allergic: no symptoms reported All Other Systems Reviewed Negative Unless Noted: Yes Past Agzygnc-Bvihgm-Ezjlkp Hx Patient Social History Tobacco Use?: No Substance use?: No Alcohol Use?: Yes Alcohol type: Hard Liquor Alcohol Frequency: Daily Pt feels they are or have been: Unable to obtain Immunizations Up To Date First/Initial COVID19 Vaccinat: [place] Past Medical History Surgery/Hospitalization HX: Alcohol Abuse, Bipolar Surgeries: Yes Abdominal, Appendectomy, Gallbladder Psychosocial: Yes Bipolar Family Medical History No Pertinent Family Hx Physical Exam Vital Signs Vital Signs - First Documented 11/25/21 11/25/21 18:21 19:00 Temp 37.6 Pulse 131 Resp 28 B/P (MAP) 124/103 (110) Pulse Ox 94 O2 Delivery Room Air O2 Flow Rate 2.00 FiO2 92 Capillary Refill : Height, Weight, BMI Height: '" Weight: lbs. oz. kg; 33.00 BMI Method: General Appearance: Anxious Eyes: Bilateral Eye Normal Inspection HEENT: PERRL/EOMI, Normal ENT Inspection, Pharynx Normal Neck: Full Range of Motion, Normal Inspection, Non Tender, Supple Respiratory: Chest Non Tender, Lungs Clear, Normal Breath Sounds, No Accessory Muscle Use, No Respiratory Distress Cardiovascular: No Edema, Normal Peripheral Pulses, Irregularly Irregular, Tachycardia Gastrointestinal: Normal Bowel Sounds, Non Tender, Soft; No Distended, No Guarding Back: Normal Inspection, No CVA Tenderness, No Vertebral Tenderness Extremity: Normal Capillary Refill, Normal Inspection, Normal Range of Motion, Non Tender, No Calf Tenderness Neurologic/Psychiatric: Alert, Oriented x3, No Motor/Sensory Deficits, Normal Mood/Affect Skin: Normal Color, Warm/Dry Lymphatic: No Adenopathy Focused Exam Sepsis Stage: Severe Sepsis Possible Source: Pulmonary Lactate Level 11/25/21 18:58: Lactic Acid Level 3.66*H 11/25/21 20:52: Lactic Acid Level 2.88*H Time of Focused Exam: 19:00 Respiratory: Chest Non Tender, Lungs Clear, Other (increased respiratory rate with some accessory muscle use) Cardiovascular: No Edema, Normal Peripheral Pulses, Irregularly Irregular, Tachycardia Capillary Refill: Less Than 3 Seconds Peripheral Pulses: 2+ Radial Pulses (R), 2+ Radial Pulses (L) Skin: normal color, warm/dry Lactic Acid Level Laboratory Tests Test 11/25/21 18:58 11/25/21 20:52 Lactic Acid Level 3.66 MMOL/L (0.50-2.00) *H 2.88 MMOL/L (0.50-2.00) *H Within 3hrs of presentation: Admin fluids, Admin 30ml/kg IBW due to BMI>30, Admin ABX, Blood cultures prior to ABX's, Focus exam, Lactate level Procedures/Interventions Ultrasound guidance used in real-time depression 18-gauge IV in the right basilic vein in the left basilic vein without complications Progress/Results/Core Measures Suspected Sepsis SIRS Temperature: Pulse: Respiratory Rate: Laboratory Tests 11/25/21 18:14: White Blood Count 10.3 Blood Pressure / Mean: 11/25/21 18:58: Lactic Acid Level 3.66*H 11/25/21 20:52: Lactic Acid Level 2.88*H Laboratory Tests 11/25/21 18:14: Creatinine 1.33H, INR Comment 1.2, Platelet Count 41L, Total Bilirubin 3.5H Results/Orders Lab Results Laboratory Tests Test 11/25/21 18:14 11/25/21 18:30 11/25/21 18:58 11/25/21 20:52 Range/Units White Blood Count 10.3 4.3-11.0 10^3/uL Red Blood Count 3.82 3.80-5.11 10^6/uL Hemoglobin 12.0 11.5-16.0 g/dL Hematocrit 34 L 35-52 % Mean Corpuscular Volume 90 80-99 fL Mean Corpuscular Hemoglobin 31 25-34 pg Mean Corpuscular Hemoglobin Concent 35 32-36 g/dL Red Cell Distribution Width 14.2 10.0-14.5 % Platelet Count 41 L 130-400 10^3/uL Mean Platelet Volume 12.1 9.0-12.2 fL Immature Granulocyte % (Auto) 10 % Neutrophils (%) (Auto) 80 H 42-75 % Lymphocytes (%) (Auto) 7 L 12-44 % Monocytes (%) (Auto) 2 0-12 % Eosinophils (%) (Auto) 1 0-10 % Basophils (%) (Auto) 1 0-10 % Neutrophils # (Auto) 8.3 H 1.8-7.8 10^3/uL Lymphocytes # (Auto) 0.7 L 1.0-4.0 10^3/uL Monocytes # (Auto) 0.2 0.0-1.0 10^3/uL Eosinophils # (Auto) 0.1 0.0-0.3 10^3/uL Basophils # (Auto) 0.1 0.0-0.1 10^3/uL Immature Granulocyte # (Auto) 1.0 H 0.0-0.1 10^3/uL Neutrophils % (Manual) 64 % Lymphocytes % (Manual) 10 % Monocytes % (Manual) 7 % Eosinophils % (Manual) 1 % Basophils % (Manual) 0 % Metamyelocytes % 1 % Band Neutrophils 17 % Prothrombin Time 16.1 H 12.2-14.7 SEC INR Comment 1.2 0.8-1.4 Activated Partial Thromboplast Time 35 24-35 SEC D-Dimer 4.55 H 0.00-0.49 UG/ML Sodium Level 131 L 135-145 MMOL/L Potassium Level 2.7 L 3.6-5.0 MMOL/L Chloride Level 89 L 98-107 MMOL/L Carbon Dioxide Level 23 21-32 MMOL/L Anion Gap 19 H 5-14 MMOL/L Blood Urea Nitrogen 13 7-18 MG/DL Creatinine 1.33 H 0.60-1.30 MG/DL Estimat Glomerular Filtration Rate 45 BUN/Creatinine Ratio 10 Glucose Level 145 H 70-105 MG/DL Calcium Level 7.3 L 8.5-10.1 MG/DL Corrected Calcium 7.9 L 8.5-10.1 MG/DL Magnesium Level 0.8 *L 1.6-2.4 MG/DL Total Bilirubin 3.5 H 0.1-1.0 MG/DL Aspartate Amino Transf (AST/SGOT) 102 H 5-34 U/L Alanine Aminotransferase (ALT/SGPT) 65 H 0-55 U/L Alkaline Phosphatase 157 H 40-136 U/L Troponin I < 0.30 <0.30 NG/ML Pro-B-Type Natriuretic Peptide 38298.0 H <75.0 PG/ML Total Protein 6.3 L 6.4-8.2 GM/DL Albumin 3.3 3.2-4.5 GM/DL Serum Alcohol < 10 <10 MG/DL Influenza Type A Antigen NEGATIVE NEGATIVE Influenza Type B Antigen NEGATIVE NEGATIVE Lactic Acid Level 3.66 *H 2.88 *H 0.50-2.00 MMOL/L My Orders Orders - SARA HAM MD Fibrin Degradation Products (11/25/21 18:16) Procalcitonin (Pct) (11/25/21 18:16) Covid 19 Inhouse Test (11/25/21 18:16) Influenza A & B Antigens (11/25/21 18:16) Cbc With Automated Diff (11/25/21 18:16) Magnesium (11/25/21 18:16) Chest 1 View Ap/Pa Only (11/25/21 18:16) Ekg Tracing (11/25/21 18:16) Comprehensive Metabolic Panel (11/25/21 18:16) Protime With Inr (11/25/21 18:16) Partial Thromboplastin Time (11/25/21 18:16) O2 (11/25/21 18:16) Monitor-Rhythm Ecg Trace Only (11/25/21 18:16) Aspirin Chewable Tablet (Baby Aspirin Ch (11/25/21 18:30) Ed Iv/Invasive Line Start (11/25/21 18:16) Troponin I Fs (11/25/21 18:16) Probnp Fs (11/25/21 18:16) Ondansetron Injection (Zofran Injectio (11/25/21 18:30) Diltiazem Drip Pre-Mix (Cardizem Drip Pr (11/25/21 18:16) Magnesium 1 Gm/100 Ml Ivpb (Magnesium Dawson (11/25/21 18:16) Enoxaparin Injection (Lovenox Injection) (11/25/21 18:30) Lorazepam Injection (Ativan Injection) (11/25/21 18:30) Manual Differential (11/25/21 18:14) Blood Culture (11/25/21 18:39) Vital Signs Adult Sepsis Patie Q15M (11/25/21 18:39) Remove Rings In Anticipation O (11/25/21 18:39) Lactic Acid Analyzer (11/25/21 18:39) Levofloxacin 750 Mg/150 Ml Iv (Levaquin (11/25/21 18:45) Ns Iv 1000 Ml (Sodium Chloride 0.9%) (11/25/21 18:44) Ct Angio Chest W (11/25/21 19:08) Iohexol Injection (Omnipaque 350 Mg/Ml 1 (11/25/21 19:15) Received Contrast (Hold Metformin- Contr (11/25/21 19:15) Ns (Ivpb) (Sodium Chloride 0.9% Ivpb Bag (11/25/21 19:15) Alcohol (11/25/21 20:08) Diazepam Tablet (Valium Tablet) (11/25/21 20:15) Magnesium 1 Gm/100 Ml Ivpb (Magnesium Dawson (11/25/21 20:08) Acetaminophen Tablet (Tylenol Tablet) (11/25/21 20:15) Ed Admission (Communication) (11/25/21 20:18) Medications Given in ED Current Medications Medications Dose Ordered Sig/Gallito Route Start Time Stop Time Status Last Admin Dose Admin Acetaminophen 1,000 mg ONCE ONCE PO 11/25/21 20:15 11/25/21 20:16 DC 11/25/21 20:18 1,000 MG Aspirin 324 mg ONCE ONCE PO 11/25/21 18:30 11/25/21 18:31 DC 11/25/21 18:32 324 MG Diazepam 5 mg ONCE ONCE PO 11/25/21 20:15 11/25/21 20:16 DC 11/25/21 20:18 5 MG Enoxaparin Sodium 90 mg ONCE ONCE SC 11/25/21 18:30 11/25/21 18:31 DC 11/25/21 18:31 90 MG Iohexol 125 ml ONCE ONCE IV 11/25/21 19:15 11/25/21 19:16 DC 11/25/21 19:50 125 ML Levofloxacin/ Dextrose 150 ml @ 100 mls/hr ONCE ONCE IV 11/25/21 18:45 11/25/21 20:14 DC 11/25/21 19:48 100 MLS/HR Lorazepam 1 mg ONCE ONCE IVP 11/25/21 18:30 11/25/21 18:31 DC 11/25/21 18:28 1 MG Ondansetron HCl 4 mg ONCE ONCE IVP 11/25/21 18:30 11/25/21 18:31 DC 11/25/21 18:28 4 MG Sodium Chloride 100 ml ONCE ONCE IV 11/25/21 19:15 11/25/21 19:16 DC 11/25/21 19:50 100 ML Vital Signs/I&O 11/25/21 11/25/21 11/25/21 18:21 19:00 21:08 Temp 37.6 Pulse 131 133 Resp 28 93 B/P (MAP) 124/103 (110) 101/69 Pulse Ox 94 92 93 O2 Delivery Room Air Nasal Cannula Nasal Cannula O2 Flow Rate 2.00 2.00 FiO2 92 Capillary Refill : Progress Note : Progress Note 61-year-old female with above history coming in short of breath with chest pain. Patient was tachycardic to around the 150s in A. fib with RVR. Blood pressure appropriate. Oxygen on 2 L sats in the 90s which is her baseline. Chest x-ray my interpretation with pneumonia in the right lower lobe. She is allergic to cephalosporins so was given Levaquin. EKG without acute ischemic changes, just shows A. fib with RVR. She was given Lovenox, started on Cardizem drip, given a second liter of IV fluids. Her ideal body weight is around 121 pounds so this is over 30 cc/kg of ideal body weight. She was given Ativan given her vital sign abnormalities with her lack of drinking alcohol in roughly 3 days. Troponin negative, BNP just under 11,000, D-dimer very elevated. CTA then ordered. I was discussing the case with the radiologist on-call, and he believes the chest x-ray could show some perihilar findings concerning for malignancy which they will also assess for on the CT. I called and discussed the case with Dr. hWeeler, she will admit the patient to the intensive care unit. I then contacted the business consult, Dr. Biggs who will be consulting on this case. ECG Initial ECG Impression Date: Nov 25, 2021 Initial ECG Impression Time: 18:20 Initial ECG Rate: 151 Initial ECG Rhythm: A Fib/Flutter Comment Narrow QRS, normal axis, mild ST depression in the lateral leads , no T wave abnormalities Diagnostic Imaging Diagonstic Imaging: Xray Plain Films/CT/US/NM/MRI: chest Comments NAME: ALBINO LAZCANO [facility] REC#: [id number] PT STATUS: REG ER : 1960 PHYSICIAN: SARA HAM MD ADMIT DATE: 11/25/21/ER FS Draft Date of Exam:11/25/21 CHEST 1 VIEW AP/PA ONLY HISTORY: Chest pain and shortness of breath. TECHNIQUE: Frontal view of the chest. COMPARISON: 04/08/2021 FINDINGS: There is airspace consolidation in the right perihilar region and right lung base. No significant pleural effusion or pneumothorax is seen. The cardiac silhouette is normal in size. IMPRESSION:. Airspace opacities in the right lung concerning for infection in the appropriate clinical setting. Recommend followup to resolution. Dictated on workstation # [id number] Dict: 11/25/211834 Trans: 11/25/211841 CVB [id number] Interpreted by: ROSIE CRUZ MD Electronically signed by: NAME: ALBINO LAZCANO [facility] REC#: [id number] PT STATUS: REG ER : 1960 PHYSICIAN: SARA HAM MD ADMIT DATE: 11/25/21/ER FS Draft Date of Exam:11/25/21 CT ANGIO CHEST W PROCEDURE: CT angiography of the chest with contrast. TECHNIQUE: Multiple contiguous axial images were obtained through the chest after uneventful bolus administration of intravenous contrast. 3D reconstructed CTA MIP acquisitions were also performed. Auto Exposure Controls were utilized during the CT exam to meet ALARA standards for radiation dose reduction. INDICATION: Chest pain. Shortness of breath. Elevated D-dimer. History of gastric bypass surgery. COMPARISON: Chest radiograph 11/25/2021. FINDINGS: No pulmonary artery filling defects. Normal caliber thoracic aorta. Normal heart size. No pericardial effusion. Prominent subcarinal and right hilar lymph nodes measuring up to 1.1 cm in short axis dimension. There is dense airspace consolidation with air bronchograms in the superior right lower lobe and nearly the entire right middle lobe. There are additional patchy airspace opacities in the right upper lobe and left upper lobe. No pleural effusion or pneumothorax. No acute osseous findings. Diffuse fatty infiltration of the liver. Cholecystectomy. Postoperative changes in the stomach and a small hiatal hernia. IMPRESSION: 1. No pulmonary emboli. 2. Dense airspace opacities with air bronchograms consistent with pneumonitis involving nearly the entire right middle lobe and a large portion of the superior right lower lobe. There are also additional patchy airspace opacities in the upper lobes bilaterally. 3. Subcarinal and right hilar lymphadenopathy is likely reactive. 4. Hepatic steatosis. Dictated on workstation # [id number] Dict: 11/25/212006 Trans: 11/25/212012 CVB [id number] Interpreted by: SHREYA JIMENES MD Electronically signed by: Critical Care Note Critical Care Start Time: 18:10 Stop Time: 19:45 Total Time (minutes) 95 Progress The patient was at significant risk for hemodynamic compromise and received notable medications that require frequent monitoring and reevaluation. There is a lot of time as well spent discussing the case with other physicians, chart reviewing, documenting, and doing repeat exams on the patient. This is all separate from procedures. Departure Impression Primary Impression: Atrial fibrillation with RVR Additional Impressions: Pneumonia Qualified Codes: J18.9 - Pneumonia, unspecified organism Hypomagnesemia Respiratory failure Qualified Codes: J96.21 - Acute and chronic respiratory failure with hypoxia Severe sepsis Disposition: 30 STILL A PATIENT Condition: Stable Admissions Decision to Admit Reason: Admit from ER (General) Decision to Admit/Date: Nov 25, 2021 Time/Decision to Admit Time: 20:00 Transfer Method of Transfer: EMS Departure-Patient Inst. Referrals: SUNNY FUNEZ MD (PCP/Family) Primary Care Physician SARA HAM MD Nov 25, 2021 18:24
[2021-11-25] MEDS ORDERED: ASPIRIN 81 MG CHEW (CHILDREN'S ASA) PO ONE (18:30)
[2021-11-25] MEDS ORDERED: LORazepam INJ 2 MG/ML (ATIVAN) VIAL IVP ONE (18:30)
[2021-11-25] MEDS ORDERED: ENOXAPARIN 100 MG/1 ML (LOVENOX) SYR SC ONE (18:30)
[2021-11-25] MEDS ORDERED: ONDANSETRON 4 MG/2 ML (SDV) Z0FRAN IVP ONE (18:30)
[2021-11-25 18:31] LABS: BASOPHILS # (AUTO) 0.1 10^3/uL (0.0-0.1); BASOPHILS % (AUTO) 1 % (0-10); EOSINOPHILS # (AUTO) 0.1 10^3/uL (0.0-0.3); EOSINOPHILS % (AUTO) 1 % (0-10); HEMATOCRIT 34 % (35-52); LYMPHOCYTES # (AUTO) 0.7 10^3/uL (1.0-4.0); LYMPHOCYTES % (AUTO) 7 % (12-44); MEAN CORPUSCULAR HEMOGLOBIN 31 pg (25-34); MEAN CORPUSCULAR HGB CONC 35 g/dL (32-36); MEAN CORPUSCULAR VOLUME 90 fL (80-99); MEAN PLATELET VOLUME 12.1 fL (9.0-12.2); MONOCYTES # (AUTO) 0.2 10^3/uL (0.0-1.0); MONOCYTES % (AUTO) 2 % (0-12); NEUTROPHILS # (AUTO) 8.3 10^3/uL (1.8-7.8); NEUTROPHILS % (AUTO) 80 % (42-75); PLATELET COUNT 41 10^3/uL (130-400); WHITE BLOOD COUNT 10.3 10^3/uL (4.3-11.0)
--- NOTE | 2021-11-25 18:42 | Diagnostic Imaging Report ---
HISTORY: Chest pain and shortness of breath. TECHNIQUE: Frontal view of the chest. COMPARISON: 04/08/2021 FINDINGS: There is airspace consolidation in the right perihilar region and right lung base. No significant pleural effusion or pneumothorax is seen. The cardiac silhouette is normal in size. IMPRESSION:. Airspace opacities in the right lung concerning for infection in the appropriate clinical setting. Recommend followup to resolution. Dictated by: Dictated on workstation # [id number]
[2021-11-25] MEDS ORDERED: NS IV 1000 ML 1,000 ML IV STA (18:44)
[2021-11-25] MEDS ORDERED: NS IV ONE (18:45)
[2021-11-25 19:05] LABS: INR 1.2 (0.8-1.4); PROTHROMBIN TIME PATIENT 16.1 SEC (12.2-14.7)
[2021-11-25 19:07] LABS: CALCIUM 7.3 MG/DL (8.5-10.1); CREATININE SERUM 1.33 MG/DL (0.60-1.30); POTASSIUM 2.7 MMOL/L (3.6-5.0)
[2021-11-25 19:09] LABS: ALBUMIN 3.3 GM/DL (3.2-4.5); BILIRUBIN,TOTAL 3.5 MG/DL (0.1-1.0); MAGNESIUM 0.8 MG/DL (1.6-2.4); TOTAL PROTEIN 6.3 GM/DL (6.4-8.2)
[2021-11-25] MEDS ORDERED: IOHEXOL 350 MG/ML 150 ML (OMNIPAQUE 350) VIAL IV ONE (19:15)
[2021-11-25] MEDS ORDERED: NS 100 ML (IVPB) BAG IV ONE (19:15)
[2021-11-25] MEDS ORDERED: HOLD METFORMIN - RECEIVED CONTRAST 20 ML VIAL IV SCH (19:15)
[2021-11-25 19:28] LABS: BAND NEUTROPHILS 17 %; BASOPHILS % (MANUAL) 0 %; EOSINOPHILS % (MANUAL) 1 %; LYMPHOCYTES % (MANUAL) 10 %; METAMYELOCYTES % 1 %; MONOCYTES % (MANUAL) 7 %; NEUTROPHILS % (MANUAL) 64 %
--- NOTE | 2021-11-25 20:14 | Diagnostic Imaging Report ---
PROCEDURE: CT angiography of the chest with contrast. TECHNIQUE: Multiple contiguous axial images were obtained through the chest after uneventful bolus administration of intravenous contrast. 3D reconstructed CTA MIP acquisitions were also performed. Auto Exposure Controls were utilized during the CT exam to meet ALARA standards for radiation dose reduction. INDICATION: Chest pain. Shortness of breath. Elevated D-dimer. History of gastric bypass surgery. COMPARISON: Chest radiograph 11/25/2021. FINDINGS: No pulmonary artery filling defects. Normal caliber thoracic aorta. Normal heart size. No pericardial effusion. Prominent subcarinal and right hilar lymph nodes measuring up to 1.1 cm in short axis dimension. There is dense airspace consolidation with air bronchograms in the superior right lower lobe and nearly the entire right middle lobe. There are additional patchy airspace opacities in the right upper lobe and left upper lobe. No pleural effusion or pneumothorax. No acute osseous findings. Diffuse fatty infiltration of the liver. Cholecystectomy. Postoperative changes in the stomach and a small hiatal hernia. IMPRESSION: 1. No pulmonary emboli. 2. Dense airspace opacities with air bronchograms consistent with pneumonitis involving nearly the entire right middle lobe and a large portion of the superior right lower lobe. There are also additional patchy airspace opacities in the upper lobes bilaterally. 3. Subcarinal and right hilar lymphadenopathy is likely reactive. 4. Hepatic steatosis. Dictated by: Dictated on workstation # [id number]
[2021-11-25] MEDS ORDERED: DIAZEPAM 5 MG (VALIUM) TABLET PO ONE (20:15)
[2021-11-25] MEDS ORDERED: ACETAMINOPHEN 500 MG TAB (TYLENOL) PO ONE (20:15)
[2021-11-25 22:45] VITALS: BP 124/103
[2021-11-25] MEDS ORDERED: ENOXAPARIN 100 MG/1 ML (LOVENOX) SYR SC SCH (22:45)
[2021-11-25] MEDS ORDERED: 1/2 NS IV SOLUTION 1,000 ML IV PRN (22:45)
[2021-11-25] MEDS ORDERED: diphenhydrAMINE 50 MG/ML INJ (BENADRYL) IVP PRN (22:45)
[2021-11-25] MEDS ORDERED: diphenhydrAMINE 25 MG TAB (BENADRYL) PO PRN (22:45)
[2021-11-25] MEDS ORDERED: D5 1/2 NS 1000 ML IV SOLUTION 1,000 ML IV PRN (22:45)
[2021-11-25] MEDS ORDERED: BISACODYL 10 MG SUPP (DULCOLAX) PR PRN (22:45)
[2021-11-25] MEDS ORDERED: ONDANSETRON 4 MG (ZOFRAN) ORAL DISSOLVE TAB PO PRN (22:45)
[2021-11-25] MEDS ORDERED: ONDANSETRON 4 MG/2 ML (SDV) Z0FRAN IV PRN (22:45)
[2021-11-25] MEDS ORDERED: LORazepam INJ 2 MG/ML (ATIVAN) VIAL IM/IV PRN (22:45)
[2021-11-25] MEDS ORDERED: ANTACID SUSP 30 ML UDC (MYLANTA) PO PRN (22:45)
[2021-11-25] MEDS ORDERED: MELATONIN 3 MG TABLET PO PRN (22:45)
[2021-11-25] MEDS ORDERED: ACETAMINOPHEN 325 MG TABLET PO PRN (22:45)
[2021-11-25] MEDS ORDERED: polyethylene glycoL POWDER 17 GM (MIRALAX) PACK PO PRN (22:45)
[2021-11-25] MEDS: morphine INJ 4 MG/ML 1 ML (VIAL/SYRINGE) IV PRN (23:06)
[2021-11-25 23:08] LABS: POTASSIUM 2.7 MMOL/L (3.6-5.0)
[2021-11-25 23:10] LABS: CALCIUM 7.2 MG/DL (8.5-10.1)
[2021-11-25 23:11] LABS: TOTAL PROTEIN 5.4 GM/DL (6.4-8.2)
[2021-11-25 23:13] LABS: BILIRUBIN,TOTAL 4.2 MG/DL (0.1-1.0)
[2021-11-25 23:15] LABS: CREATININE SERUM 1.4 MG/DL (0.60-1.30)
[2021-11-25 23:17] LABS: MAGNESIUM 1.5 MG/DL (1.6-2.4)
[2021-11-26] MEDS ORDERED: KCL 20 MEQ TAB (K-DUR) PO ONE ×4 (00:30→09:30)
--- NOTE | 2021-11-26 00:54 | Tele-ICU Consult ---
History of Present Illness History of Present Illness Date Seen by Provider: Nov 26, 2021 Time Seen by Provider: 00:49 History of Present Illness 61 yo F brought to ED with a fib with RVR with rate 120-180, Given IV Cardizem, and 3 l IVF, Has been on Eliquis but not taken for 3 day, Chronic EtOH abuse last drink 3 days ago Many abnormal labs T Bili 3.5, LA was 3.66 was 2.88, potassium 2.7, Cr 1.22, INR 1.2, PTT 35 PT 16, ASST 105, ALT 65 Carries Dx of biploar, had COVID 4-5 months, uses home oxygn @ 2 lpm plt count 41 CTA did not show pulm emb but has PNA RML, RLL flu serology negative, COVID serology negative Allergies and Home Medications Allergies Coded Allergies: cephalexin (Verified Allergy, Severe, 06/27/21) Home Medications Apixaban 5 Mg Tablet, 5 MG PO BID Prescribed by: BENY WHEELER on 07/01/21 1155 Ascorbic Acid 500 Mg Capsule, 500 MG PO DAILY, (Reported) Chlordiazepoxide HCl 25 Mg Capsule, 25 MG PO UD 50 mg (2 caps) by mouth every 6 hours day 1, 25 mg by mouth every 6 hours day 2, 25 mg by mouth every 12 hours day 3, 25 mg by mouth at bedtime day 4, then stop Prescribed by: COLTEN FRANKLIN on 07/29/21 0745 Cholecalciferol (Vitamin D3) 25 Mcg Tablet, 25 MCG PO DAILY, (Reported) Cyanocobalamin (Vitamin B-12) 2,500 Mcg Tablet, 2,500 MCG PO DAILY, (Reported) Ferrous Sulfate 325 Mg Tablet, 325 MG PO DAILY Prescribed by: BENY WHEELER on 07/01/21 1155 Hydrochlorothiazide 25 Mg Tablet, 25 MG PO DAILY Prescribed by: BENY WHEELER on 07/01/21 1155 Hydrocodone/Acetaminophen 1 Each Tablet, 1 EACH PO Q6H PRN for PAIN-MODERATE (5- 7) Prescribed by: BENY WHEELER on 07/01/21 1156 Loperamide HCl 1 Mg/7.5 Ml Liquid, 1 MG PO Q4H PRN for DIARRHEA, (Reported) Metoprolol Succinate 100 Mg Tab.er.24h, 100 MG PO DAILY Prescribed by: BENY WHEELER on 07/01/21 1155 Nitrofurantoin Macrocrystal 100 Mg Capsule, 100 MG PO BID Prescribed by: BABATUNDE FOSTER MD on 11/23/21 0121 Ondansetron 4 Mg Tab.rapdis, 4 MG PO Q6H PRN for NAUSEA/VOMITING Prescribed by: COLTEN FRANKLIN on 07/29/21 0735 Potassium Chloride 10 Meq Tab.er.prt, 10 MEQ PO DAILY Prescribed by: BENY WHEELER on 07/01/21 1155 Pramipexole Di-HCl 0.5 Mg Tablet, 0.5 MG PO HS Prescribed by: BENY WHEELER on 07/01/21 115 Quetiapine Fumarate 200 Mg Tablet, 200 MG PO HS Prescribed by: BENY WHEELER on 07/01/21 1155 Past Medical/Social/Family Hx Patient Social History Tobacco Use?: No Substance use?: No Alcohol Use?: Yes Alcohol type: Hard Liquor Alcohol Frequency: Daily 5th of vodka per day for the last 5 months. Pt stated abuse/neglect: Unable to obtain Immunizations Up To Date First/Initial COVID19 Vaccinat: Moderna Current Status Primary Language: Montenegrin Preferred Spoken Language: Montenegrin Review of Systems Constitutional: see HPI EENTM: see HPI Respiratory: see HPI Cardiovascular: see HPI Gastrointestinal: see HPI Genitourinary: see HPI Musculoskeletal: see HPI Skin: see HPI Psychiatric/Neurological: See HPI Focused Exam Lactate Level 11/25/21 18:58: Lactic Acid Level 3.66*H 11/25/21 20:52: Lactic Acid Level 2.88*H 11/25/21 22:45: Lactic Acid Level 2.97*H Height, Weight, BMI Height: '" Weight: lbs. oz. kg; 34.00 BMI Method: Time of Focused Exam: 19:00 Lactic Acid Level Laboratory Tests Test 11/25/21 20:52 11/25/21 22:45 Lactic Acid Level 2.88 MMOL/L (0.50-2.00) *H 2.97 MMOL/L (0.50-2.00) *H Exam Exam Patient acknowledged, consented, and participated in this virtual visit which was conducted using real time audio/video Vital Signs Date Time Temp Pulse Resp B/P (MAP) Pulse Ox O2 Delivery O2 Flow Rate FiO2 11/26/21 00:15 103 96/53 95 Nasal Cannula 4.00 11/26/21 00:00 109 91/52 97 Nasal Cannula 4.00 11/25/21 23:45 122 89/50 93 Nasal Cannula 4.00 11/25/21 23:27 37.5 11/25/21 23:06 36.5 11/25/21 22:45 37.6 131 94 28 11/25/21 22:30 116 115/59 91 Nasal Cannula 4.00 11/25/21 21:08 133 93 101/69 93 Nasal Cannula 2.00 11/25/21 19:00 92 Nasal Cannula 2.00 92 11/25/21 18:21 37.6 131 28 124/103 (110) 94 Room Air I & O 11/26/21 07:00 Intake Total 1950 ml Balance 1950 ml Height & Weight Height: '" Weight: lbs. oz. kg; 34.00 BMI Method: General Appearance: Anxious HEENT: PERRL/EOMI, Normal ENT Inspection, Pharynx Normal Neck: Full Range of Motion, Normal Inspection, Non Tender, Supple Respiratory: Chest Non Tender, Lungs Clear, Decreased Breath Sounds, Other (increased respiratory rate with some accessory muscle use) Cardiovascular: No Edema, Normal Peripheral Pulses, Irregularly Irregular, Tachycardia, Other (A fib rate 110-120 continues on IV Cardizem BP 89/55) Capillary Refill: Less Than 3 Seconds Peripheral Pulses: 2+ Radial Pulses (R), 2+ Radial Pulses (L) Gastrointestinal: normal bowel sounds, non tender, soft Extremity: Normal Capillary Refill, Normal Inspection, Normal Range of Motion, Non Tender, No Calf Tenderness, No Pedal Edema Neurologic/Psychiatric: Alert, Oriented x3, No Motor/Sensory Deficits, Normal Mood/Affect Skin: Normal Color, Warm/Dry Lymphatic: No Adenopathy Results Lab Laboratory Tests 11/25/21 18:14 11/25/21 22:45 Assessment/Plan Assessment/Plan will continue IV Cardizem for a fib with RVR Pt bleeding from puncture sites so will hold Lovenox for tonight, plt count 41, probably from chonic EtOH T Bili elevated will need to be w/u cirrrhosis?, EtOH hepatitis, will watch for sign for ETOH withdrawal Critical Care: Critically Ill Patient Time spent with patient (mins): 35 CHRISTOPHER ROE MD Nov 26, 2021 00:54
[2021-11-26] MEDS: MAGNESIUM 1 GM/100 ML IVPB 100 ML IV SCH ×3 (00:57→06:55)
[2021-11-26] MEDS: dilTIAZem DRIP PRE-MIX 125 ML IV SCH ×2 (01:01→19:45)
[2021-11-26] MEDS: NS IV 1000 ML 1,000 ML IV SCH ×3 (01:02→19:55)
[2021-11-26] MEDS: morphine INJ 4 MG/ML 1 ML (VIAL/SYRINGE) IV PRN ×2 (02:15→19:54)
[2021-11-26] MEDS: LORazepam INJ 2 MG/ML (ATIVAN) VIAL IV PRN ×3 (02:56→19:53)
[2021-11-26 02:59] LABS: EOSINOPHILS % (AUTO) 1 % (0-10); MEAN PLATELET VOLUME 12.1 fL (9.0-12.2); MONOCYTES # (AUTO) 0.2 10^3/uL (0.0-1.0)
[2021-11-26 03:00] LABS: BASOPHILS # (AUTO) 0.1 10^3/uL (0.0-0.1); BASOPHILS % (AUTO) 1 % (0-10); HEMATOCRIT 31 % (35-52); HEMOGLOBIN 10.7 g/dL (11.5-16.0); LYMPHOCYTES # (AUTO) 0.6 10^3/uL (1.0-4.0); LYMPHOCYTES % (AUTO) 10 % (12-44); MEAN CORPUSCULAR HEMOGLOBIN 31 pg (25-34); MEAN CORPUSCULAR HGB CONC 34 g/dL (32-36); MEAN CORPUSCULAR VOLUME 92 fL (80-99); MONOCYTES % (AUTO) 3 % (0-12); NEUTROPHILS # (AUTO) 4.7 10^3/uL (1.8-7.8); NEUTROPHILS % (AUTO) 84 % (42-75); WHITE BLOOD COUNT 5.6 10^3/uL (4.3-11.0)
[2021-11-26 03:09] LABS: PLATELET COUNT 33 10^3/uL (130-400)
[2021-11-26 03:11] LABS: ALBUMIN 3.1 GM/DL (3.2-4.5)
[2021-11-26 03:12] LABS: POTASSIUM 2.6 MMOL/L (3.6-5.0)
[2021-11-26 03:13] LABS: CALCIUM 7.2 MG/DL (8.5-10.1)
[2021-11-26 03:14] LABS: TOTAL PROTEIN 5.6 GM/DL (6.4-8.2)
[2021-11-26 03:16] LABS: BILIRUBIN,TOTAL 4.5 MG/DL (0.1-1.0)
[2021-11-26 03:18] LABS: CREATININE SERUM 1.31 MG/DL (0.60-1.30)
[2021-11-26 03:34] LABS: HYPOCHROMASIA SLIGHT; LYMPHOCYTES % (MANUAL) 10 %; MONOCYTES % (MANUAL) 3 %; NEUTROPHILS % (MANUAL) 87 %; POLYCHROMASIA SLIGHT
[2021-11-26 05:15] LABS: POTASSIUM 2.8 MMOL/L (3.6-5.0)
[2021-11-26 05:22] LABS: MAGNESIUM 2.1 MG/DL (1.6-2.4)
--- NOTE | 2021-11-26 06:17 | History & Physical-Hospitalist ---
History of Present Illness HPI/Chief Complaint CC: Atrial Fibrillation with RVR with Pneumonia and Alcohol Withdrawal HPI: This is a 61F alcoholic clinic patient of [facility] who presented to the ER at [facility] [place] with complaints of SOB and weakness. She was found to have A-Fib with RVR, along with pneumonia and alcohol withdrawal, acute kidney injury among other significant issues. She was placed in ICU. Cardiology was consulted, Cardizem drip was maintained. Potassium and Magnesium were very low those were replaced. Alcohol withdrawal was placed on protocol and will monitor patient closely in the meantime. Pt has guarded prognosis at this current time. Source: patient Exam Limitations: clinical condition Date Seen 11/26/21 Time Seen by a Provider: 10:30 Attending Physician Lida Storm MD PCP Admitting Physician: Hillary Rawls DO Attending Physician: Hillary Rawls DO Referring Physician Date of Admission Nov 25, 2021 at 22:21 Home Medications & Allergies Home Medications Reviewed patient Home Medication Reconciliation performed by pharmacy medication reconciliations auto transmission technician and/or nursing. Patients Allergies have been reviewed. Allergies Allergies Coded Allergies cephalexin (Verified Allergy, Severe, 06/27/21) Past Rysiwlz-Qsfkof-Gcuedw Hx Patient Social History Marrital Status: single Employed/Student: unemployed Tobacco Use?: No Smoking Status: Current Everyday Smoker Substance use?: No Alcohol Use?: Yes Alcohol type: Hard Liquor Alcohol Frequency: Daily Additional Alcohol Comments: 5th of vodka per day for the last 5 months. Pt feels they are or have been: Unable to obtain Immunizations Up To Date Date of Influenza Vaccine: Apr 12, 2021 First/Initial COVID19 Vaccinat: Moderna Current Status Primary Language: Guyanese Preferred Spoken Language: Guyanese Past Medical History Surgeries: Abdominal, Appendectomy, Gallbladder COPD High Cholesterol, Hypertension Bipolar Family Medical History No Pertinent Family Hx Review of Systems ROS-Unable to Obtain: lethargy Constitutional: see HPI, malaise, weakness Physical Exam Physical Exam Vital Signs Vital Signs - First Documented 11/25/21 11/25/21 18:21 19:00 Temp 37.6 Pulse 131 Resp 28 B/P (MAP) 124/103 (110) Pulse Ox 94 O2 Delivery Room Air O2 Flow Rate 2.00 FiO2 92 Capillary Refill : Less Than 3 Seconds Height, Weight, BMI Height: '" Weight: lbs. oz. kg; 34.00 BMI Method: General Appearance: No Apparent Distress, Anxious, Chronically ill, Obese Respiratory: No Accessory Muscle Use, No Respiratory Distress, Decreased Breath Sounds Cardiovascular: Irregularly Irregular, Tachycardia Neurologic/Psychiatric: Alert, Depressed Affect, Disoriented, Motor Weakness (generalized) Results Results/Procedures Labs Laboratory Tests 11/25/21 18:14 11/25/21 22:45 11/26/21 02:51 11/26/21 04:55 Patient resulted labs reviewed. Assessment/Plan Admission Diagnosis Assessment: Sepsis AF RVR PNA JUAQUIN Hypokalemia Hypomag ETOH withdrawal Plan: IVF IV abx Cardiology ETOH w/d protocol Admission Status: Inpatient Order (span 2 midnights) Reason for Inpatient Admission: af rvr pna etoh w/d Diagnosis/Problems Diagnosis/Problems (1) Paroxysmal atrial fibrillation Status: Acute (2) Pneumonia (3) Alcohol withdrawal (4) Lactic acidosis Status: Resolved Resolution Date/Time: 01/03/21 @ 12:01 (5) Acute respiratory failure due to COVID-19 Status: Acute (6) COPD (chronic obstructive pulmonary disease) Status: Chronic HILLARY RAWLS DO Nov 26, 2021 06:17
[2021-11-26] MEDS ORDERED: ENOXAPARIN 100 MG/1 ML (LOVENOX) SYR SC SCH (06:30)
[2021-11-26] MEDS: KCL 20 MEQ TAB (K-DUR) PO SCH (06:45)
[2021-11-26] MEDS: POTASSIUM CL 10MEQ/50ML IVPB 50 ML IV SCH (06:55)
[2021-11-26] MEDS: PANTOPRAZOLE 40 MG (PROTONIX) VIAL IV SCH (08:41)
[2021-11-26] MEDS: DOCUSATE SODIUM 100 MG (COLACE) CAP PO SCH ×2 (08:41→19:54)
[2021-11-26] MEDS: NICOTINE 21 MG (NICODERM) PATCH TD SCH ×2 (08:41→09:00)
[2021-11-26] MEDS: FOLIC ACID 1 MG TAB PO SCH (08:41)
[2021-11-26] MEDS: MAGNESIUM OXIDE (MAG-OX)400 MG TAB PO SCH ×2 (08:41→19:54)
--- NOTE | 2021-11-26 09:42 | Physical Therapy Evaluation ---
PT Evaluation-General Medical Diagnosis Admission Date Nov 25, 2021 at 22:21 Medical Diagnosis: ETOH withdraw, A-fib with RVR and pneumonia Onset Date: Nov 25, 2021 Therapy Diagnosis Therapy Diagnosis: impaired mobility, strength, endurance Precautions Precautions/Isolations: Standard Precautions Referral Physician: Hillary Rawls DO Reason for Referral: Evaluation/Treatment Medical History Additional Medical History Past Medical History Surgeries: Abdominal, Appendectomy, Gallbladder Bipolar Reviewed History: Yes Social History Current Living Status: Alone Entry Into Home: Level Entry Prior Prior Level of Function SCALE: Activities may be completed with or without assistive devices. 0-Zvmvcslliw-ghnpdcr completes the activity by him/herself with no assistance from a helper. 5-Set-up or Clean-up Assistance-helper sets up or cleans up; patient completes activity. [place] assists only prior to or following the activity. 4-Supervision or Touching Assistance-helper provides verbal cues and/or touching /steadying and/or contact guard assistance as patient completes activity. Assistance may be provided throughout the activity or intermittently. 3-Partial/Moderate Assistance-helper does LESS THAN HALF the effort. [place] lifts, holds or supports trunk or limbs, but provides less than half the effort. 2-Substantial/Maximal Assistance-helper does MORE THAN HALF the effort. [place] lifts or holds trunk or limbs and provides more than half the effort. 8-Boxbkzxix-xzcwsv does ALL the effort. Patient does none of the effort to complete the activity. Or, the assistance of 2 or more helpers is required for the patient to complete the activity. If activity was not attempted, code reason: 7-Patient Refused. 9-Not Applicable-not attempted and the patient did not perform the activity before the current illness, exacerbation or injury. 10-Not Attempted due to Environmental Limitations-(lack of equipment, weather restraints, etc.). 88-Not Attempted due to Medical Conditions or Safety Concerns. Bed Mobility: 6 Transfers (B,C,W/C): 6 Gait: 6 Stairs: 6 Indoor Mobility (Ambulation): Independent Stairs: Independent PT Evaluation-Current Subjective Patient in bed pre tx, agrees to PT, has chest and back pain, nurse aware of pain. Pt/Family Goals to be independent at home Objective Patient Orientation: Person, Place, Situation Attachments: Oxygen, Mulligan Catheter, IV ROM/Strength ROM Lower Extremities WNL Strength Lower Extremities LLE (hip flexion 3/5, knee flexion 3+/5, knee extension 3+/5, dorsiflexion 4/5), RLE (hip flexion 3/5, knee flexion 3+/5, knee extension 3+/5, dorsiflexion 4/5) Sensory Hearing: Functional Sensation Right Lower Extremit: Impaired Sensation Left Lower Extremity: Impaired Transfers Roll Left to Right (QC): 3 Sit to Lying (QC): 3 Lying to Sitting/Side of Bed(Q: 3 Sit to Stand (QC): 4 min assist for supine <-> sit, CGA for sit <-> stand Gait Does the Patient Walk?: Yes Mode of Locomotion: Walk Anticipated Mode of Locomotion: Walk Distance: 3' Gait Assistive Device: FWW Comments/Gait Description sidestep at bedside toward the head of the bed. After standing and taking a few steps to the head of the bed patient's O2 drops quickly to about 75%, patient sits and performs purse lip breathing and O2 comes back up to 90% after about 15 sec Balance Sitting Static: Fair Sitting Dynamic: Fair Standing Static: Fair Assessment/Needs Patient in bed post tx with nurse call, phone, tray, all needs met. Patient has impaired mobility, strength, endurance. Nurse in room post tx. Rehab Potential: Fair PT Senior Care Goals Pressure Vessel Inspector Goals PT Pressure Vessel Inspector Goals Time Frame: Dec 03, 2021 Roll Left & Right (QC): 6 Sit to Lying (QC): 6 Lying-Sitting on Side/Bed(QC): 6 Sit to Stand (QC): 4 (SBA) Chair/Wzh-mr-Jdstv Xfer(QC): 4 (SBA) Walk 10 feet (QC): 4 (SBA) Walk 50ft with 2 Turns (QC): 4 (SBA) PT Plan Problem List Problem List: Activity Tolerance, Functional Strength, Safety, Balance, Gait, Transfer, Bed Mobility, ROM Treatment/Plan Treatment Plan: Continue Plan of Care Treatment Plan: Bed Mobility, Education, Functional Activity Tian, Functional Strength, Gait, Safety, Therapeutic Exercise, Transfers Treatment Duration: Dec 03, 2021 Frequency: 6 times per week Estimated Hrs Per Day: .25 hour per day Patient and/or Family Agrees t: Yes Safety Risks/Education Patient Education: Gait Training, Transfer Techniques, Correct Positioning, Safety Issues Teaching Recipient: Patient Teaching Methods: Demonstration, Discussion Response to Teaching: Reinforcement Needed Discharge Recommendations Plan Patient will perform bed mobility and transfer training, balance and endurance training, functional strengthening, stair training, gait training, and education, to improve functional mobility and independence at home. Therapy Discharge Recommendati: Scheduled Assistance, Post Acute PT Time/GCodes Time In: 906 Time Out: 917 Total Billed Treatment Time: 11 Total Billed Treatment 1 visit MANNY CHAN PT Nov 26, 2021 09:42
--- NOTE | 2021-11-26 11:37 | Occupational Therapy Eval ---
OT Evaluation-General/PLF Medical Diagnosis Admission Date Nov 25, 2021 at 22:21 Medical Diagnosis: ETOH withdraw, A-fib with RVR and pneumonia Onset Date: Nov 25, 2021 Therapy Diagnosis Therapy Diagnosis: reduced adl status Precautions Precautions/Isolations: Fall Prevention, Standard Precautions Referral Physician: Hillary Rawls DO Referral Reason: Evaluation/Treatment Medical History Pertinent Medical History: Atrial Fib, Alcoholism, HTN Current History appendectomy, gallbladder surgery Reviewed History: Yes Social History Home: Apartment (3rd floor apartment ) Current Living Status: Alone Entry Into Home: Elevator Pt arrived to ER with c/o chest pain, SOB and worsening anxiety. She drinks ~1/5 of alcohol per day. She stopped cold turkey 3 days prior. Found to be in a-fib. Pt reports living alone in a 3rd floor apartment with elevator access. She states she had trouble with adls but could "manage." She was not using any AD at baseline. Pt reports using 4-5L oxygen at baseline. ADL-Prior Level of Function SCALE: Activities may be completed with or without assistive devices. 3-Dfxrznwlds-vztqcnv completes the activity by him/herself with no assistance from a helper. 5-Set-up or Clean-up Assistance-helper sets up or cleans up; patient completes activity. [place] assists only prior to or following the activity. 4-Supervision or Touching Assistance-helper provides verbal cues and/or touching/steadying and/or contact guard assistance as patient completes activity. Assistance may be provided throughout the activity or intermittently. 3-Partial/Moderate Assistance-helper does LESS THAN HALF the effort. [place] lif ts, holds or supports trunk or limbs, but provides less than half the effort. 2-Substantial/Maximal Assistance-helper does MORE THAN HALF the effort. [place] lifts or holds trunk or limbs and provides more than half the effort. 4-Vagomvath-ngzemq does ALL the effort. Patient does none of the effort to complete the activity. Or, the assistance of 2 or more helpers is required for the patient to complete the activity. If activity was not attempted, code reason: 7-Patient Refused. 9-Not Applicable-not attempted and the patient did not perform the activity before the current illness, exacerbation or injury. 10-Not Attempted due to Environmental Limitations-(lack of equipment, weather restraints, etc.). 88-Not Attempted due to Medical Conditions or Safety Concerns. Self Care: Independent Functional Cognition: Unknown Drive Self: Yes OT Current Status Subjective Pt lethargic, difficult to keep awake. States she has chest and back pain rating at 9/10. Appearance Pt left supine in bed, all needs within reach, RN notified. Current Upper Extremity ROM Difficult to get accurate range as pt is very lethargic. ADL-Treatment Pt lethargic, difficult to keep awake. States she has chest and back pain rating at 9/10. RN reports pt is currently detoxing and was given Ativan. Pt not safe to perform any OOB/EOB activities this date secondary to lethargy. She was able to bring hand to face to drink water and wash face but was falling asleep during task, thus needing assist from therapist to keep cup from spilling. Education OT Patient Education: Purpose of tx/functional activities, Reviewed precautions, Rehab process, Safety issues Teaching Recipient: Patient Teaching Methods: Discussion Response to Teaching: Reinforcement Needed OT Detention Goals Detention Goals Time Frame: Dec 13, 2021 Eating (QC): 5 Oral Hygiene (QC): 5 Toileting Hygiene (QC): 4 Shower/Bathe Self (QC): 4 Upper Body Dressing (QC): 5 Lower Body Dressing (QC): 4 On/Off Footwear (QC): 4 1=Demonstrate adherence to instructed precautions during ADL tasks. 2=Patient will verbalize/demonstrate understanding of assistive devices/modifications for ADL. 3=Patient will improve strength/tolerance for activity to enable patient to pe rform ADL's. OT Education/Plan Problem List/Assessment Assessment: Decreased Activ Tolerance, Decreased Safety Aware, Decreased UE Strength, Impaired Cognition, Impaired I ADL's, Impaired Self-Care Skills Discharge Recommendations Plan/Recommendations: Continue POC Target Placement ongoing assessment needed Treatment Plan/Plan of Care Treatment,Training & Education: Yes Patient would benefit from OT for education, treatment and training to promote independence in ADL's, mobility, safety and/or upper extremity function for ADL's. Plan of Care: ADL Retraining, Cognitive Retraining, Functional Mobility, Group Exercise/Act as Ind, UE Funct Exercise/Act Treatment Duration: Dec 13, 2021 Frequency: 3 times per week (3-5x/week) Estimated Hrs Per Day: .25 hour per day Rehab Potential: Fair Time/GCodes Start Time: 11:12 Stop Time: 11:20 Total Time Billed (hr/min): 8 Billed Treatment Time 1 visit Keren Garcia OT Nov 26, 2021 11:37
[2021-11-26] MEDS ORDERED: QUET400T13 PO (12:00)
[2021-11-26] MEDS ORDERED: DULO30CA49 PO (12:00)
[2021-11-26] MEDS ORDERED: ACHD5005 PO (12:00)
[2021-11-26] MEDS ORDERED: PRAM0.5T9 PO (12:00)
--- NOTE | 2021-11-26 14:21 | Consultation-Cardiology ---
HPI-Cardiology Cardiology Consultation: Date of Consultation 11/26/21 Date of Admission 11/25/21 Attending Physician Lida Storm MD Admitting Physician Admitting Physician: Hillary Wheeler DO Attending Physician: Hillary Wheeler DO Consulting Physician CONI LEWIS JR, MD HPI: Time Seen by a Provider: 16:12 Chief Complaint: REASON FOR CONSULTATION: Atrial fibrillation. I had the pleasure of seeing Ilana in the intensive care unit at [facility] in [place], [place] today. She is known to me from a previous hospitalization and the office. She has a history of paroxysmal atrial fibrillation first identified around December 2020 when she was in the hospital with COVID, aortic stenosis, hypertension, recurrent pneumonia, bipolar disorder with depression, alcohol dependence, and obesity. She states that she recently started drinking a fair amount of alcohol. At that time, she stopped her cardiac medications. Then about 3 or 4 days ago she started developing a cough and shortness of breath. She stopped drinking alcohol thinking that she will get herself into an alcohol rehab facility. However, the cough and shortness of breath persisted. She was also having some chest tightness that radiated to her back. She had a fair amount of palpitations associated with lightheadedness but denies any syncope. She was also having a fair amount of insomnia. Yesterday she could barely even move because of the shortness of breath and discomfort she seemed to be experiencing all over her body. She called 911 and was brought to the emergency room in [place]. She was found to be in atrial fibrillation with a rapid ventricular rate and was placed on intravenous diltiazem and transferred to our intensive care unit. Overnight, she converted to sinus rhythm. She is still somewhat drowsy. I did restart her beta-tahir for couple of hours ago. She still has a cough and some slight shortness of breath. Her main complaint right now is that she wants her psychiatric medications resumed so that she can sleep at night. She does not report paroxysmal nocturnal dyspnea, orthopnea, or lower extremity edema. Because of the atrial fibrillation, a cardiology consultation was requested. Certain portions of this document may have been dictated utilizing voice recognition technology. Inherent to this technology, typographical and grammatical errors may exist. As much as I am diligent to identify and correct these mistakes, some errors may remain in the document. Review of Systems-Cardiology Review of Systems Other comments Review of 10 organ systems is as per the history of present illness, otherwise negative. All Other Systems Reviewed Negative Unless Noted: Yes [id number] Hx Patient Social History Alcohol Use?: Yes Pt feels they are or have been: Unable to obtain Immunizations Up To Date Date of Influenza Vaccine: Apr 12, 2021 Past Medical History PMH As described under Assessment. Family Medical History Family Medical History: She does not report fam h/o early CAD or SCD Allergies and Home Medications Allergies Coded Allergies: cephalexin (Verified Allergy, Severe, 06/27/21) Patient Home Medication List Home Medication List Reviewed: Yes Duloxetine HCl (Duloxetine HCl) 30 Mg Capsule.dr, 30 MG PO DAILY, (Reported) Entered as Reported by: INGRID GODINEZ on 11/26/211199 Last Action: Reviewed Hydrocodone/Acetaminophen (Hydrocodone-Acetamin 5-325 mg) 5 Mg-325 Mg Tablet, 1 TAB PO BID PRN for PAIN-MODERATE (5-7), (Reported) Entered as Reported by: INGRID GODINEZ on 11/26/211199 Last Action: Reviewed Loperamide HCl (Imodium A-D) 1 Mg/7.5 Ml Liquid, 1 MG PO Q4H PRN for DIARRHEA, (Reported) Entered as Reported by: INGRID SLADE on 06/28/21 0834 Last Action: Reviewed Pramipexole Di-HCl (Pramipexole Dihydrochloride) 0.5 Mg Tablet, 0.5 MG PO HS, (Reported) Entered as Reported by: INGRID GODINEZ on 11/26/211199 Last Action: Reviewed Quetiapine Fumarate (Quetiapine Fumarate) 400 Mg Tablet, 400 MG PO HS, (Reported) Entered as Reported by: INGRID GODINEZ on 11/26/211199 Last Action: Reviewed Discontinued Medications Apixaban (Eliquis) 5 Mg Tablet, 5 MG PO BID Discontinued Reason: No Longer Taking Prescribed by: HILLARY WHEELER on 07/01/21 1155 Last Action: Discontinued Ascorbic Acid (Vitamin C) 500 Mg Capsule, 500 MG PO DAILY, (Reported) Discontinued Reason: No Longer Taking Entered as Reported by: INGRID SLADE on 06/28/21 0833 Last Action: Discontinued Chlordiazepoxide HCl (Chlordiazepoxide HCl) 25 Mg Capsule, 25 MG PO UD Discontinued Reason: No Longer Taking Prescribed by: COLTEN FRANKLIN on 07/29/21 0745 Last Action: Discontinued Cholecalciferol (Vitamin D3) (Vitamin D3) 25 Mcg Tablet, 25 MCG PO DAILY, (Reported) Discontinued Reason: No Longer Taking Entered as Reported by: INGRID SLADE on 06/28/21 0833 Last Action: Discontinued Cyanocobalamin (Vitamin B-12) (Vitamin B12) 2,500 Mcg Tablet, 2,500 MCG PO DAILY, (Reported) Discontinued Reason: No Longer Taking Entered as Reported by: INGRID SLADE on 06/28/21 0832 Last Action: Discontinued Ferrous Sulfate (Iron) 325 Mg Tablet, 325 MG PO DAILY Discontinued Reason: No Longer Taking Prescribed by: HILLARY WHEELER on 07/01/211154 Last Action: Discontinued Hydrochlorothiazide (Hydrochlorothiazide) 25 Mg Tablet, 25 MG PO DAILY Discontinued Reason: No Longer Taking Prescribed by: HILLARY WHEELER on 07/01/211154 Last Action: Discontinued Hydrocodone/Acetaminophen (Hydrocodone-Acetamin 7.5-325) 1 Each Tablet, 1 EACH PO Q6H PRN for PAIN-MODERATE (5-7) Discontinued Reason: No Longer Taking Prescribed by: HILLARY WHEELER on 07/01/211155 Last Action: Discontinued Metoprolol Succinate (Metoprolol Succinate) 100 Mg Tab.er.24h, 100 MG PO DAILY Discontinued Reason: No Longer Taking Prescribed by: HILLARY WHEELER on 07/01/211154 Last Action: Discontinued Nitrofurantoin Macrocrystal (Nitrofurantoin) 100 Mg Capsule, 100 MG PO BID Discontinued Reason: No Longer Taking Prescribed by: BABATUNDE FOSTER MD on 11/23/21 0121 Last Action: Discontinued Ondansetron (Ondansetron Odt) 4 Mg Tab.rapdis, 4 MG PO Q6H PRN for TRUMAN SEA/VOMITING Discontinued Reason: No Longer Taking Prescribed by: COLTEN FRANKLIN on 07/29/21 0735 Last Action: Discontinued Potassium Chloride (Potassium Chloride) 10 Meq Tab.er.prt, 10 MEQ PO DAILY Discontinued Reason: No Longer Taking Prescribed by: HILLARY WHEELER on 07/01/211154 Last Action: Discontinued Pramipexole Di-HCl (Pramipexole Dihydrochloride) 0.5 Mg Tablet, 0.5 MG PO HS Discontinued Reason: No Longer Taking Prescribed by: HILLARY WHEELER on 07/01/211154 Last Action: Discontinued Quetiapine Fumarate (Quetiapine Fumarate) 200 Mg Tablet, 200 MG PO HS Discontinued Reason: No Longer Taking Prescribed by: HILLARY WHEELER on 07/01/21 1155 Last Action: Discontinued Exam Vital Signs Vital Signs Date Time Temp Pulse Resp B/P (MAP) Pulse Ox O2 Delivery O2 Flow Rate FiO2 11/26/21 16:00 99 93/55 92 Nasal Cannula 2.00 11/26/21 15:00 23 11/26/21 12:00 37.1 11/25/21 22:45 28 Physical Exam General: Somewhat somnolent but talkative. No acute distress. Well nourished and appears stated age. She is obese. Eye: Extraocular movements are intact. Conjunctivae are clear. There are no xanthelasma. HENT: Normocephalic. Atraumatic. Carotid pulsations 2/2 without bruits. Neck: Jugular venous pressure does not appear elevated. No thyromegaly appreciated. Respiratory: Lungs are clear to auscultation. Respirations are non-labored. Breath sounds are equal. Symmetrical chest wall expansion. Cardiovascular: Normal rate. Regular rhythm. Distant S1/S2. 2/6 systolic ejection murmur. No gallop. Point of maximal impulse is not appear displaced. Good pulses equal in all extremities. No edema. Gastrointestinal: Soft. Normal bowel sounds. Skin: Skin turgor is normal. There is no pallor. Musculoskeletal: No kyphosis or scoliosis appreciated. Neurologic: Somewhat somnolent but oriented to person, place, time. Cranial nerves 3-12 appear grossly intact. The patient has good motor tone strength in the upper and lower extremities bilaterally. Psychiatric: Cooperative. Flat affect. Labs Laboratory Tests Test 11/25/21 18:14 11/25/21 18:30 11/25/21 18:58 11/25/21 20:52 Range/Units White Blood Count 10.3 4.3-11.0 10^3/uL Red Blood Count 3.82 3.80-5.11 10^6/uL Hemoglobin 12.0 11.5-16.0 g/dL Hematocrit 34 L 35-52 % Mean Corpuscular Volume 90 80-99 fL Mean Corpuscular Hemoglobin 31 25-34 pg Mean Corpuscular Hemoglobin Concent 35 32-36 g/dL Red Cell Distribution Width 14.2 10.0-14.5 % Platelet Count 41 L 130-400 10^3/uL Mean Platelet Volume 12.1 9.0-12.2 fL Immature Granulocyte % (Auto) 10 % Neutrophils (%) (Auto) 80 H 42-75 % Lymphocytes (%) (Auto) 7 L 12-44 % Monocytes (%) (Auto) 2 0-12 % Eosinophils (%) (Auto) 1 0-10 % Basophils (%) (Auto) 1 0-10 % Neutrophils # (Auto) 8.3 H 1.8-7.8 10^3/uL Lymphocytes # (Auto) 0.7 L 1.0-4.0 10^3/uL Monocytes # (Auto) 0.2 0.0-1.0 10^3/uL Eosinophils # (Auto) 0.1 0.0-0.3 10^3/uL Basophils # (Auto) 0.1 0.0-0.1 10^3/uL Immature Granulocyte # (Auto) 1.0 H 0.0-0.1 10^3/uL Neutrophils % (Manual) 64 % Lymphocytes % (Manual) 10 % Monocytes % (Manual) 7 % Eosinophils % (Manual) 1 % Basophils % (Manual) 0 % Metamyelocytes % 1 % Band Neutrophils 17 % Prothrombin Time 16.1 H 12.2-14.7 SEC INR Comment 1.2 0.8-1.4 Activated Partial Thromboplast Time 35 24-35 SEC D-Dimer 4.55 H 0.00-0.49 UG/ML Sodium Level 131 L 135-145 MMOL/L Potassium Level 2.7 L 3.6-5.0 MMOL/L Chloride Level 89 L 98-107 MMOL/L Carbon Dioxide Level 23 21-32 MMOL/L Anion Gap 19 H 5-14 MMOL/L Blood Urea Nitrogen 13 7-18 MG/DL Creatinine 1.33 H 0.60-1.30 MG/DL Estimat Glomerular Filtration Rate 45 BUN/Creatinine Ratio 10 Glucose Level 145 H 70-105 MG/DL Calcium Level 7.3 L 8.5-10.1 MG/DL Corrected Calcium 7.9 L 8.5-10.1 MG/DL Magnesium Level 0.8 *L 1.6-2.4 MG/DL Total Bilirubin 3.5 H 0.1-1.0 MG/DL Aspartate Amino Transf (AST/SGOT) 102 H 5-34 U/L Alanine Aminotransferase (ALT/SGPT) 65 H 0-55 U/L Alkaline Phosphatase 157 H 40-136 U/L Troponin I < 0.30 <0.30 NG/ML Pro-B-Type Natriuretic Peptide 23322.0 H <75.0 PG/ML Total Protein 6.3 L 6.4-8.2 GM/DL Albumin 3.3 3.2-4.5 GM/DL Procalcitonin 10.63 H <0.10 NG/ML Serum Alcohol < 10 <10 MG/DL Influenza Type A Antigen NEGATIVE NEGATIVE Influenza Type B Antigen NEGATIVE NEGATIVE SARS-CoV-2 RNA (RT-PCR) Not Detected Not Detecte Lactic Acid Level 3.66 *H 2.88 *H 0.50-2.00 MMOL/L Test 11/25/21 22:45 11/25/21 23:13 11/26/21 00:48 11/26/21 02:51 Range/Units Sodium Level 130 L 130 L 135-145 MMOL/L Potassium Level 2.7 L 2.6 L 3.6-5.0 MMOL/L Chloride Level 91 L 91 L 98-107 MMOL/L Carbon Dioxide Level 23 23 21-32 MMOL/L Anion Gap 16 H 16 H 5-14 MMOL/L Blood Urea Nitrogen 14 14 7-18 MG/DL Creatinine 1.40 H 1.31 H 0.60-1.30 MG/DL Estimat Glomerular Filtration Rate 43 46 BUN/Creatinine Ratio 10 11 Glucose Level 96 102 70-105 MG/DL Lactic Acid Level 2.97 *H 3.53 *H 2.07 *H 0.50-2.00 MMOL/L Calcium Level 7.2 L 7.2 L 8.5-10.1 MG/DL Corrected Calcium 8.0 L 7.9 L 8.5-10.1 MG/DL Magnesium Level 1.5 L 1.6-2.4 MG/DL Total Bilirubin 4.2 H 4.5 H 0.1-1.0 MG/DL Aspartate Amino Transf (AST/SGOT) 89 H 85 H 5-34 U/L Alanine Aminotransferase (ALT/SGPT) 66 H 64 H 0-55 U/L Alkaline Phosphatase 132 132 40-136 U/L Total Protein 5.4 L 5.6 L 6.4-8.2 GM/DL Albumin 3.0 L 3.1 L 3.2-4.5 GM/DL Glucometer 94 70-110 MG/DL White Blood Count 5.6 4.3-11.0 10^3/uL Red Blood Count 3.41 L 3.80-5.11 10^6/uL Hemoglobin 10.7 L 11.5-16.0 g/dL Hematocrit 31 L 35-52 % Mean Corpuscular Volume 92 80-99 fL Mean Corpuscular Hemoglobin 31 25-34 pg Mean Corpuscular Hemoglobin Concent 34 32-36 g/dL Red Cell Distribution Width 14.2 10.0-14.5 % Platelet Count 33 *L 130-400 10^3/uL Mean Platelet Volume 12.1 9.0-12.2 fL Immature Granulocyte % (Auto) 1 % Neutrophils (%) (Auto) 84 H 42-75 % Lymphocytes (%) (Auto) 10 L 12-44 % Monocytes (%) (Auto) 3 0-12 % Eosinophils (%) (Auto) 1 0-10 % Basophils (%) (Auto) 1 0-10 % Neutrophils # (Auto) 4.7 1.8-7.8 10^3/uL Lymphocytes # (Auto) 0.6 L 1.0-4.0 10^3/uL Monocytes # (Auto) 0.2 0.0-1.0 10^3/uL Eosinophils # (Auto) 0.0 0.0-0.3 10^3/uL Basophils # (Auto) 0.1 0.0-0.1 10^3/uL Immature Granulocyte # (Auto) 0.0 0.0-0.1 10^3/uL Neutrophils % (Manual) 87 % Lymphocytes % (Manual) 10 % Monocytes % (Manual) 3 % Smudge Cells SLIGHT Percent Immature Platelet Fraction 12.9 H 0.0-7.6 % Polychromasia SLIGHT Hypochromasia SLIGHT Test 11/26/21 04:55 11/26/21 13:50 Range/Units Potassium Level 2.8 L 3.6-5.0 MMOL/L Lactic Acid Level 1.86 0.50-2.00 MMOL/L Magnesium Level 2.1 1.6-2.4 MG/DL Glucometer 104 70-110 MG/DL Radiology ECHOCARDIOGRAM (11/26/2021): 1. The is a technically difficult study due to poor image quality secondary to patient's body habitus. 2. Left ventricle: The cavity size is normal. There is mild concentric hypertrophy. Systolic function is normal. The estimated ejection fraction is 55- 60%. Regional wall motion abnormalities cannot be excluded due to poor endocardial definition. The left ventricular diastolic function is indeterminate. 3. Left atrium: The left atrium is mildly to moderately dilated with a volume index ranging from 29-60 mL/m. 4. Right atrium: The right atrium is mildly dilated with an area of 23 cm. 5. Aortic valve: The aortic valve appears tricuspid with thickened and calcified leaflets with restricted leaflet mobility. There is mild aortic stenosis with a mean gradient of 17 mmHg, a peak gradient of 30 mmHg, a peak velocity of 2.7 m/s, and an aortic valve area of 1.6 cm. There is trivial aortic regurgitation. 6. Mitral valve: There is mild mitral annular calcification. 7. Pulmonary arteries: The estimated pulmonary artery systolic pressure is 37 mmHg assuming a right atrial pressure of 5 mmHg. 8. Compared to the previous study from 06/08/2021, there has been no significant change. REGADENOSON NUCLEAR STRESS TEST (07/01/2021): 1. Normal heart rate and blood pressure response to regadenoson with resting hypertension. 2. There was no chest discomfort, arrhythmias, or electrocardiogram changes during the test. 3. There was normal myocardial perfusion in all segments without evidence of infarction or ischemia. 4. There was normal wall motion in all segments with a calculated ejection fraction of 77%. ELECTROCARDIOGRAM (06/21/2021): Sinus rhythm with low voltage in the precordial leads and possible old anterior myocardial infarction. ECHOCARDIOGRAM (06/08/2021): 1. Normal left ventricular chamber size with moderate concentric left ventricular hypertrophy. Normal left ventricular systolic function with an estimated ejection fraction of 65-70% with no regional wall motion abnormalities identified. 2. The left ventricular diastolic parameters are consistent with grade 2 diastolic dysfunction. 3. The left atrium is mildly dilated with a volume index of 31-37 mL/m. 4. There is mild mitral annular calcification. 5. There is mild mitral regurgitation. 6. There is mild aortic stenosis with a mean gradient of 19 mmHg, a peak gradient of 33 mmHg, a peak velocity of 2.9 m/s and a calculated aortic valve area of 1.6 cm. 7. There is mild aortic regurgitation with a pressure half-time of 407 ms. 8. The estimated pulmonary artery systolic pressure is 31 mmHg assuming a right atrial pressure of 5 mmHg. ECG Impression ECG Comment Electrocardiogram from the emergency room on 11/25 shows atrial fibrillation with a rapid ventricular rate at 151 bpm with low voltage in the precordial leads, poor R wave progression and nonspecific ST-T wave changes. Diagnosis/Problems Diagnosis/Problems (1) Paroxysmal atrial fibrillation Status: Acute Assessment & Plan: She now has recurrent atrial fibrillation. She converted to sinus rhythm overnight. Her [id number] score is 2 for female sex and hypertension. I have restarted her beta-tahir. I will also resume apixaban. At this point, I do not see any strong indication for antiarrhythmic drug. (2) Aortic stenosis Assessment & Plan: Her echocardiogram from this admission again shows mild aortic stenosis. This should not be causing symptoms but will need to be followed longitudinally. (3) Primary hypertension Assessment & Plan: As above, I have resumed her metoprolol. Her blood pressures have intermittently been running on the low side. If this persists, we may need to decrease the dose of metoprolol. (4) Chest pain Status: Acute Assessment & Plan: Exact etiology unclear. She does not have any ischemic changes on her electrocardiogram and her troponin level was undetectable in the outside emergency room. I suspect this is noncardiac chest pain, possibly due to musculoskeletal strain from her coughing. She did undergo a nuclear stress test in June 2021 as outlined above and this was normal. (5) Alcohol dependence Status: Acute Assessment & Plan: She was counseled about abstinence from alcohol. However, I did also tell her that her cardiac medications do not necessarily have any specific interaction with alcohol and that if she does resume heavy drinking, she should try to continue to take her cardiac medications. But again, I encouraged her to quit drinking. CONI LEWIS JR, MD Nov 26, 2021 14:21
[2021-11-26] MEDS ORDERED: meTOprolol SUCCINATE 100 MG (TOPROL XL) TAB PO ONE (14:30)
[2021-11-26] MEDS ORDERED: CATHETER FLUSH 10 ML SYR IVP PRN (17:45)
[2021-11-26] MEDS: APIXABAN 5 MG (ELIQUIS) TABLET PO SCH (19:54)
[2021-11-26] MEDS ORDERED: VANCOMYCIN INJECTION 0.1 MG in NS (IVPB) 250 ML IV SCH (20:15)
[2021-11-26] MEDS ORDERED: LOPERAMIDE SUSP 2 MG/15 ML (IMODIUM) UDC PO PRN (20:30)
[2021-11-26] MEDS: RT-ALBUTEROL/IPRATROPIUM 3 ML (DUONEB) VIAL INH PRN (21:17)
[2021-11-26] MEDS: HYDROcodone/APAP 5 MG/325 MG (LORTAB) TAB PO PRN (21:59)
[2021-11-26] MEDS: VANCOMYCIN 1 GM/NS 250 ML IVPB IV SCH ×4 (22:00→22:42)
[2021-11-26] MEDS: QUEtiapine 200 MG (SEROquel) TAB IMMEDIATE RELEASE PO SCH (22:16)
[2021-11-26] MEDS: PRAMIPEXOLE 0.5 MG TAB (MIRAPEX) PO SCH (22:16)
[2021-11-26] MEDS ORDERED: NS IV 1000 ML 1,000 ML IV SCH (22:30)
[2021-11-27] MEDS ORDERED: NS IV 1000 ML 1,000 ML IV SCH (02:00)
[2021-11-27 04:36] LABS: MEAN CORPUSCULAR HGB CONC 34 g/dL (32-36); MONOCYTES # (AUTO) 0.4 10^3/uL (0.0-1.0)
[2021-11-27 04:38] LABS: BASOPHILS % (AUTO) 1 % (0-10); EOSINOPHILS % (AUTO) 1 % (0-10); HEMATOCRIT 25 % (35-52); HEMOGLOBIN 8.5 g/dL (11.5-16.0); LYMPHOCYTES % (AUTO) 28 % (12-44); MEAN CORPUSCULAR HEMOGLOBIN 32 pg (25-34); MEAN CORPUSCULAR VOLUME 96 fL (80-99); MONOCYTES % (AUTO) 12 % (0-12); NEUTROPHILS % (AUTO) 57 % (42-75); WHITE BLOOD COUNT 3.5 10^3/uL (4.3-11.0)
[2021-11-27 04:41] LABS: PLATELET COUNT 33 10^3/uL (130-400)
[2021-11-27 04:42] VITALS: BP 92/55
[2021-11-27 04:52] LABS: ALBUMIN 2.8 GM/DL (3.2-4.5); POTASSIUM 3.7 MMOL/L (3.6-5.0)
[2021-11-27 04:53] LABS: CALCIUM 6.9 MG/DL (8.5-10.1)
[2021-11-27 04:55] LABS: TOTAL PROTEIN 5.4 GM/DL (6.4-8.2)
[2021-11-27 04:56] LABS: BILIRUBIN,TOTAL 3.2 MG/DL (0.1-1.0)
[2021-11-27] MEDS: POTASSIUM CL 10MEQ/50ML IVPB 50 ML IV SCH (04:56)
[2021-11-27] MEDS: KCL 20 MEQ TAB (K-DUR) PO SCH (04:56)
[2021-11-27 04:58] LABS: CREATININE SERUM 1.21 MG/DL (0.60-1.30)
[2021-11-27 05:53] LABS: MAGNESIUM 1.8 MG/DL (1.6-2.4)
[2021-11-27 05:59] LABS: PHOSPHORUS 0.8 MG/DL (2.3-4.7)
[2021-11-27] MEDS: MAGNESIUM 1 GM/100 ML IVPB 100 ML IV SCH (05:59)
--- NOTE | 2021-11-27 06:06 | Progress Note - Hospitalist ---
Subjective HPI/CC On Admission Date Seen by Provider: Nov 27, 2021 Time Seen by Provider: 09:00 CC: Atrial Fibrillation with RVR with Pneumonia and Alcohol Withdrawal HPI: This is a 61F alcoholic clinic patient of [facility] who presented to the ER at [facility] with complaints of SOB and weakness. She was found to have A-Fib with RVR, along with pneumonia and alcohol withdrawal, acute kidney injury among other significant issues. She was placed in ICU. Cardiology was consulted, Cardizem drip was maintained. Potassium and Magnesium were very low those were replaced. Alcohol withdrawal was placed on protocol and will monitor patient closely in the meantime. Pt has guarded prognosis at this current time. Subjective/Events-last exam Patient doing a little better Platelet count 33,000 Patient going through alcohol withdrawal Ativan given per protocol E. coli bacteremia awaiting sensitivity Vancomycin for staph bacteremia Review of Systems General: Fatigue Neurological: Confusion Focused Exam Lactate Level 11/26/21 00:48: Lactic Acid Level 3.53*H 11/26/21 02:51: Lactic Acid Level 2.07*H 11/26/21 04:55: Lactic Acid Level 1.86 Time of Focused Exam: 19:00 Objective Exam Vital Signs Vital Signs Date Time Temp Pulse Resp B/P (MAP) Pulse Ox O2 Delivery O2 Flow Rate FiO2 11/27/21 19:00 37.6 112 26 106/66 95 Nasal Cannula 3.00 11/27/21 08:00 40 Capillary Refill : Less Than 3 Seconds General Appearance: No Apparent Distress, WD/WN, Chronically ill Respiratory: Lungs Clear, Normal Breath Sounds Cardiovascular: Regular Rate, Rhythm, Tachycardia Neurologic/Psychiatric: Alert, Oriented x3, No Motor/Sensory Deficits, Normal Mood/Affect Results/Procedures Lab Laboratory Tests 11/27/21 04:20 Patient resulted labs reviewed. Assessment/Plan Assessment and Plan Assess & Plan/Chief Complaint Assessment: Sepsis AF RVR PNA JUAQUIN Hypokalemia Hypomag ETOH withdrawal E. coli bacteremia Staph bacteremia Plan: IVF IV abx Cardiology ETOH w/d protocol 11/27/2021: Supportive care ICU required Alcohol withdrawal Antibiotics Critical Care Critically Ill Patient Diagnosis/Problems Diagnosis/Problems (1) Paroxysmal atrial fibrillation Status: Acute (2) Pneumonia (3) Alcohol withdrawal (4) Lactic acidosis Status: Resolved Resolution Date/Time: 01/03/21 @ 12:01 (5) Acute respiratory failure due to COVID-19 Status: Acute (6) COPD (chronic obstructive pulmonary disease) Status: Chronic BENY WHEELER DO Nov 27, 2021 06:06
--- NOTE | 2021-11-27 06:44 | Diagnostic Imaging Report ---
Indication: Respiratory distress Portable chest 6:21 AM There is cardiomegaly. There is consolidation in the right lower lung. There is some left perihilar atelectasis. There are no effusions. IMPRESSION: Bilateral perihilar atelectasis with large area of consolidation in the right lower lung suspicious for pneumonia. The lung weiss appear slightly worse compared to 11/25/2021. Dictated by: Dictated on workstation # [id number]
[2021-11-27 06:45] VITALS: BP 98/62
[2021-11-27] MEDS ORDERED: POTASSIUM PHOSPHATE INJ 30 MM in NS (IVPB) 250 ML IV ONE (08:00)
[2021-11-27] MEDS: HYDROcodone/APAP 5 MG/325 MG (LORTAB) TAB PO PRN (08:02)
[2021-11-27] MEDS: FOLIC ACID 1 MG TAB PO SCH (08:02)
[2021-11-27] MEDS: MAGNESIUM OXIDE (MAG-OX)400 MG TAB PO SCH ×2 (08:02→19:41)
[2021-11-27] MEDS: NICOTINE 21 MG (NICODERM) PATCH TD SCH (08:02)
[2021-11-27] MEDS: PANTOPRAZOLE 40 MG (PROTONIX) VIAL IV SCH (08:02)
[2021-11-27] MEDS: DULoxetine 30 MG (CYMBALTA) CAP PO SCH (08:02)
[2021-11-27] MEDS: APIXABAN 5 MG (ELIQUIS) TABLET PO SCH ×2 (08:02→19:41)
[2021-11-27] MEDS: DOCUSATE SODIUM 100 MG (COLACE) CAP PO SCH ×2 (08:04→19:47)
[2021-11-27] MEDS: meTOprolol SUCCINATE 100 MG (TOPROL XL) TAB PO SCH (08:04)
[2021-11-27] MEDS: LORazepam INJ 2 MG/ML (ATIVAN) VIAL IV PRN ×2 (09:47→17:18)
--- NOTE | 2021-11-27 10:05 | Cardiology Progress Note ---
Progress Note-Cardiology Events since last exam Date Seen by Provider: Nov 27, 2021 Time Seen by Provider: 10:00 Events since last exam I am following her due to atrial fibrillation. She remains in the intensive care unit on the alcohol withdrawal protocol. Last evening she dropped her saturations and was placed on BiPAP. This was removed this morning. Just before I saw the patient, she was given Ativan for the alcohol withdrawal protocol and was somewhat sedated but arousable and talkative to voice. She still complains of some vague chest discomfort. Her shortness of breath persists. She denies palpitations, syncope, or ankle edema. Certain portions of this document may have been dictated utilizing voice recognition technology. Inherent to this technology, typographical and grammatical errors may exist. As much as I am diligent to identify and correct these mistakes, some errors may remain in the document. Vitals Last set of Vitals Signs Vital Signs 11/27/21 11/27/21 11/27/21 08:00 09:00 09:26 Temp 37.1 Pulse 87 Resp 21 B/P (MAP) 95/55 Pulse Ox 94 O2 Delivery Nasal Cannula O2 Flow Rate 2.00 Labs Labs Laboratory Tests 11/27/21 04:20 Exam Vital Signs Vital Signs Date Time Temp Pulse Resp B/P (MAP) Pulse Ox O2 Delivery O2 Flow Rate FiO2 11/27/21 09:26 94 Nasal Cannula 2.00 11/27/21 09:00 87 21 95/55 11/27/21 08:00 40 11/27/21 08:00 37.1 Physical Exam General: Somnolent from Ativan but arousable to voice. No acute distress. She is obese. Eye: No xanthelasma. HENT: Normocephalic. Neck: Jugular venous pressure does not appear elevated. Respiratory: Lungs are clear to auscultation. Respirations are non-labored. Breath sounds are equal. Symmetrical chest wall expansion. Cardiovascular: Normal rate. Regular rhythm. Distant S1/S2. 2/6 systolic ejection murmur. No gallop. No edema. Gastrointestinal: Soft. Normal bowel sounds. Skin: Warm. Dry. Neurologic: Somnolent but oriented to person and place but not time. Cranial nerves 3-11 grossly intact. Psychiatric: Cooperative. Flat affect. Labs Laboratory Tests Test 6/17/22 13:50 11/27/21 04:18 11/27/21 04:20 Range/Units Glucometer 104 70-110 MG/DL Bedside Blood Gas pH (LAB) 7.347 7.310-7.410 Bedside Blood Gas pCO2 (LAB) 35.0 L 41.0-51.0 mmHg Bedside Blood Gas pO2 (LAB) 81 80-105 mmHg Bedside Blood Gas HCO3 (LAB) 19.2 L 23.0-28.0 mmol/L POC Blood Gas Total CO2 Calc 20 L 24-29 mmol/L Bedside Bl Gas O2 Saturation (Calc) 95 95-98 % Bedside Arterial Blood Base Excess -6 L -2-3 mmol/L White Blood Count 3.5 L 4.3-11.0 10^3/uL Red Blood Count 2.66 L 3.80-5.11 10^6/uL Hemoglobin 8.5 #L 11.5-16.0 g/dL Hematocrit 25 L 35-52 % Mean Corpuscular Volume 96 80-99 fL Mean Corpuscular Hemoglobin 32 25-34 pg Mean Corpuscular Hemoglobin Concent 34 32-36 g/dL Red Cell Distribution Width 14.9 H 10.0-14.5 % Platelet Count 33 *L 130-400 10^3/uL Mean Platelet Volume 12.0 9.0-12.2 fL Immature Granulocyte % (Auto) 2 % Neutrophils (%) (Auto) 57 42-75 % Lymphocytes (%) (Auto) 28 12-44 % Monocytes (%) (Auto) 12 0-12 % Eosinophils (%) (Auto) 1 0-10 % Basophils (%) (Auto) 1 0-10 % Neutrophils # (Auto) 2.0 1.8-7.8 10^3/uL Lymphocytes # (Auto) 1.0 1.0-4.0 10^3/uL Monocytes # (Auto) 0.4 0.0-1.0 10^3/uL Eosinophils # (Auto) 0.0 0.0-0.3 10^3/uL Basophils # (Auto) 0.0 0.0-0.1 10^3/uL Immature Granulocyte # (Auto) 0.1 0.0-0.1 10^3/uL Percent Immature Platelet Fraction 16.6 H 0.0-7.6 % Sodium Level 127 L 135-145 MMOL/L Potassium Level 3.7 3.6-5.0 MMOL/L Chloride Level 97 L 98-107 MMOL/L Carbon Dioxide Level 19 L 21-32 MMOL/L Anion Gap 11 5-14 MMOL/L Blood Urea Nitrogen 21 H 7-18 MG/DL Creatinine 1.21 0.60-1.30 MG/DL Estimat Glomerular Filtration Rate 51 BUN/Creatinine Ratio 17 Glucose Level 88 70-105 MG/DL Calcium Level 6.9 L 8.5-10.1 MG/DL Corrected Calcium 7.9 L 8.5-10.1 MG/DL Phosphorus Level 0.8 *L 2.3-4.7 MG/DL Magnesium Level 1.8 1.6-2.4 MG/DL Total Bilirubin 3.2 H 0.1-1.0 MG/DL Aspartate Amino Transf (AST/SGOT) 107 H 5-34 U/L Alanine Aminotransferase (ALT/SGPT) 57 H 0-55 U/L Alkaline Phosphatase 151 H 40-136 U/L Total Protein 5.4 L 6.4-8.2 GM/DL Albumin 2.8 L 3.2-4.5 GM/DL Diagnosis/Problems Diagnosis/Problems (1) Paroxysmal atrial fibrillation Status: Acute Assessment & Plan: She had recurrent atrial fibrillation in the emergency room that converted to sinus rhythm on the first evening while on intravenous diltiazem. The diltiazem infusion has been discontinued. Her [id number] score is 2 for female sex and hypertension. I resumed her apixaban. I have also restarted her beta-tahir. At this point, I do not see any strong indication for antiarrhythmic drug. (2) Aortic stenosis Assessment & Plan: Her echocardiogram from this admission again shows mild aortic stenosis. This should not be causing symptoms but will need to be followed longitudinally. (3) Primary hypertension Assessment & Plan: As above, I have resumed her metoprolol. Her blood pressures have intermittently been running on the low side. If this persists, we may need to decrease the dose of metoprolol. (4) Chest pain Status: Acute Assessment & Plan: Exact etiology unclear. She does not have any ischemic changes on her electrocardiogram and her troponin level was undetectable in the outside emergency room. She had a nuclear stress test in June 2021 that was normal. I suspect this is noncardiac chest pain, possibly due to musculoskeletal strain from her coughing which she had for at least a couple of days prior to admission. (5) Alcohol dependence Status: Acute Assessment & Plan: She was counseled about abstinence from alcohol. However, I did also tell her that her cardiac medications do not necessarily have any specific interaction with alcohol and that if she does resume heavy drinking, she should try to continue to take her cardiac medications. But again, I encouraged her to quit drinking. (6) Morbid obesity Status: Chronic Assessment & Plan: She needs to work on weight loss. She was counseled in this regard. CONI LEWIS JR, MD Nov 27, 2021 10:05
--- NOTE | 2021-11-27 10:53 | Tele-ICU Progress Note ---
Subjective Date Seen by a Provider: Nov 27, 2021 Time Seen by a Provider: 10:47 Subjective/Events-last exam Now on BiPAP, but now off, back on 2 lpm NC SpO2 92%, spont RR and less use of accessory muscles. Needing IV Ativan 2mg PRN for EtOH withdrawal for diaphoresis, agitation, anxiety. No hallucinations. On IV Vancomycin, Levaquin for PNA, not much coughing, lungs are sounding clearer Now having sinus tachycardia but does have paroxysms of a fib, off cardizem plt still low at 33k but no active bleeding LFT's still up, T Bili 3 which I sucpect is due to EtOH liver disease as is low plt count Sepsis Event Evaluation Height, Weight, BMI Height: '" Weight: lbs. oz. kg; 41.74 BMI Method: Focused Exam Lactate Level 11/26/21 00:48: Lactic Acid Level 3.53*H 11/26/21 02:51: Lactic Acid Level 2.07*H 11/26/21 04:55: Lactic Acid Level 1.86 Time of Focused Exam: 19:00 Exam Exam Patient acknowledged, consented, and participated in this virtual visit which was conducted using real time audio/video Vital Signs Date Time Temp Pulse Resp B/P (MAP) Pulse Ox O2 Delivery O2 Flow Rate FiO2 11/27/21 10:00 93 21 92/60 91 NIV Bilevel 40.00 11/27/21 09:26 94 Nasal Cannula 2.00 11/27/21 09:00 87 21 95/55 97 NIV Bilevel 40.00 11/27/21 08:00 97 NIV Bilevel 40 11/27/21 08:00 91 26 97/62 98 NIV Bilevel 40.00 11/27/21 08:00 37.1 11/27/21 07:00 87 24 104/64 99 NIV Bilevel 40.00 11/27/21 07:00 95 11/27/21 06:59 NIV Bilevel 40.00 11/27/21 06:48 40.00 11/27/21 06:45 94 25 100 50.00 11/27/21 06:00 93 21 97/59 100 NIV Bilevel 50.00 11/27/21 05:00 92 26 88/55 100 NIV Bilevel 50.00 11/27/21 04:42 96 24 99 50.00 11/27/21 04:38 NIV Bilevel 50.00 11/27/21 04:36 NIV Bilevel 60.00 11/27/21 04:18 Nasal Cannula 5.00 11/27/21 04:00 99 35 94/68 98 Non Rebreather 15.00 11/27/21 04:00 Non Rebreather 15.00 11/27/21 03:45 94 Nasal Cannula 6.00 11/27/21 03:45 36.9 Nasal Cannula 4.00 11/27/21 03:00 96 17 91/62 96 Nasal Cannula 4.00 11/27/21 02:00 93 32 97/66 96 Nasal Cannula 4.00 11/27/21 01:32 Nasal Cannula 4.00 11/27/21 01:00 Nasal Cannula 3.00 11/27/21 01:00 95 32 101/63 92 Nasal Cannula 3.00 11/27/21 01:00 93 11/27/21 00:00 85 26 92/65 95 Nasal Cannula 2.00 11/26/21 23:00 36.5 81 22 89/59 92 Nasal Cannula 2.00 11/26/21 23:00 92 Nasal Cannula 2.00 11/26/21 22:00 95 27 83/55 96 Nasal Cannula 2.00 11/26/21 21:17 94 Face Tent 2.00 11/26/21 21:00 94 32 98/67 95 Nasal Cannula 2.00 11/26/21 20:00 96 Nasal Cannula 2.00 11/26/21 20:00 93 88/67 95 Nasal Cannula 2.00 11/26/21 19:38 93 11/26/21 19:00 36.3 92 16 98/51 96 Nasal Cannula 2.00 11/26/21 18:00 93 92/51 93 Nasal Cannula 2.00 11/26/21 17:00 92 93/44 93 Nasal Cannula 2.00 11/26/21 16:00 99 93/55 92 Nasal Cannula 2.00 11/26/21 16:00 96 Nasal Cannula 2.00 11/26/21 15:00 107 23 92/71 91 Nasal Cannula 2.00 11/26/21 14:00 112 25 120/63 97 Nasal Cannula 2.00 11/26/21 13:00 112 104/59 96 Nasal Cannula 2.00 11/26/21 12:37 103 11/26/21 12:00 107 109/64 96 Nasal Cannula 2.00 11/26/21 12:00 37.1 11/26/21 12:00 96 Nasal Cannula 2.00 11/26/21 11:00 106 93/62 96 Nasal Cannula 2.00 I & O 11/27/21 07:00 Intake Total 5465 ml Output Total 875 ml Balance 4590 ml Height & Weight Height: '" Weight: lbs. oz. kg; 41.74 BMI Method: General Appearance: No Apparent Distress, Anxious, Chronically ill, Obese HEENT: PERRL/EOMI, Normal ENT Inspection, Pharynx Normal Neck: Full Range of Motion, Normal Inspection, Non Tender, Supple Respiratory: Lungs Clear, No Accessory Muscle Use, No Respiratory Distress, Decreased Breath Sounds Cardiovascular: Irregularly Irregular, Tachycardia, Other (a fib at times) Capillary Refill: Less Than 3 Seconds Peripheral Pulses: 2+ Radial Pulses (R), 2+ Radial Pulses (L) Gastrointestinal: normal bowel sounds, non tender, soft Extremity: Normal Capillary Refill, Normal Inspection, Normal Range of Motion, Non Tender, No Calf Tenderness, No Pedal Edema Neurologic/Psychiatric: Alert, Depressed Affect, Disoriented, Motor Weakness (generalized) Skin: Normal Color, Warm/Dry Lymphatic: No Adenopathy Results Lab Laboratory Tests 11/25/21 18:14 11/25/21 22:45 11/26/21 02:51 11/26/21 04:55 11/27/21 04:20 Assessment/Plan Assessment/Plan EtOH withdrawal-will continue PRN Ativan per CIWA score Elevated LFT's,-would image liver on u/s or CT looking for signs of cirrhosis a fib-will follow and give something for rate control if needed, cardiology note read, due to CHADSVASC-2 on apixiban, will watch for any bleeding. PNA-resp status is better and will continue abx, follow QTc interval as is on Levaquin-last QTc was 452 If does well today may be able to go to step down in am Phosphaate 0.8, is being replaced. Critical Care: Critically Ill Patient Time spent with patient (mins): 30 CHRISTOPHER ROE MD Nov 27, 2021 10:53
--- NOTE | 2021-11-27 12:41 | Physical Therapy Daily Note ---
PT Daily Note-Current Subjective States that she is feeling okay. Transfers SCALE: Activities may be completed with or without assistive devices. 5-Agdiqswhzg-qnvemqo completes the activity by him/herself with no assistance from a helper. 5-Set-up or Clean-up Assistance-helper sets up or cleans up; patient completes activity. [place] assists only prior to or following the activity. 4-Supervision or Touching Assistance-helper provides verbal cues and/or touching/steadying and/or contact guard assistance as patient completes activity. Assistance may be provided throughout the activity or intermittently. 3-Partial/Moderate Assistance-helper does LESS THAN HALF the effort. [place] lift s, holds or supports trunk or limbs, but provides less than half the effort. 2-Substantial/Maximal Assistance-helper does MORE THAN HALF the effort. [place] lifts or holds trunk or limbs and provides more than half the effort. 8-Nfreqflcb-zzndvj does ALL the effort. Patient does none of the effort to complete the activity. Or, the assistance of 2 or more helpers is required for the patient to complete the activity. If activity was not attempted, code reason: 7-Patient Refused. 9-Not Applicable-not attempted and the patient did not perform the activity before the current illness, exacerbation or injury. 10-Not Attempted due to Environmental Limitations-(lack of equipment, weather restraints, etc.). 88-Not Attempted due to Medical Conditions or Safety Concerns. Exercises Supine Ex: LE Protocol Supine Reps: 20 Assessment Current Status: Fair Progress Patient very lethargic today. PT Group Home Goals Skin Care Therapist Goals PT Skin Care Therapist Goals Time Frame: Dec 03, 2021 Roll Left & Right (QC): 6 Sit to Lying (QC): 6 Lying-Sitting on Side/Bed(QC): 6 Sit to Stand (QC): 4 (SBA) Chair/Ydz-ab-Jgaaz Xfer(QC): 4 (SBA) Walk 10 feet (QC): 4 (SBA) Walk 50ft with 2 Turns (QC): 4 (SBA) PT Plan Treatment/Plan Treatment Plan: Continue Plan of Care Treatment Plan: Bed Mobility, Education, Functional Activity Tian, Functional Strength, Gait, Safety, Therapeutic Exercise, Transfers Treatment Duration: Dec 03, 2021 Frequency: 6 times per week Estimated Hrs Per Day: .25 hour per day Patient and/or Family Agrees t: Yes Time/GCodes Time In: 1210 Time Out: 1220 Total Billed Treatment Time: 10 Total Billed Treatment 1, EX x 10' MARICHUY PALACIOS PT Nov 27, 2021 12:41
[2021-11-27] MEDS: VANCOMYCIN 1 GM/NS 250 ML IVPB IV SCH ×2 (17:07)
[2021-11-27] MEDS ORDERED: meTOproloL SUCCINATE 50 MG (TOPROL XL) TAB PO ONE (19:37)
[2021-11-27] MEDS: QUEtiapine 200 MG (SEROquel) TAB IMMEDIATE RELEASE PO SCH (19:41)
[2021-11-27] MEDS: PRAMIPEXOLE 0.5 MG TAB (MIRAPEX) PO SCH (19:41)
[2021-11-27] MEDS ORDERED: meTOprolol SUCCINATE 100 MG (TOPROL XL) TAB PO ONE (19:45)
[2021-11-27] MEDS: dilTIAZem DRIP PRE-MIX 125 ML IV SCH (22:27)
[2021-11-28] MEDS ORDERED: dilTIAZem DRIP PRE-MIX 125 ML IV ONE (01:08)
[2021-11-28] MEDS: dilTIAZem DRIP PRE-MIX 125 ML IV SCH ×2 (01:13→15:36)
[2021-11-28 04:55] LABS: BASOPHILS % (AUTO) 1 % (0-10); EOSINOPHILS % (AUTO) 1 % (0-10); HEMATOCRIT 28 % (35-52); HEMOGLOBIN 9.1 g/dL (11.5-16.0); LYMPHOCYTES # (AUTO) 0.9 10^3/uL (1.0-4.0); LYMPHOCYTES % (AUTO) 22 % (12-44); MEAN CORPUSCULAR HEMOGLOBIN 31 pg (25-34); MEAN CORPUSCULAR HGB CONC 32 g/dL (32-36); MEAN CORPUSCULAR VOLUME 97 fL (80-99); MEAN PLATELET VOLUME 12.4 fL (9.0-12.2); MONOCYTES # (AUTO) 0.7 10^3/uL (0.0-1.0); MONOCYTES % (AUTO) 17 % (0-12); NEUTROPHILS # (AUTO) 2.4 10^3/uL (1.8-7.8); NEUTROPHILS % (AUTO) 55 % (42-75); PLATELET COUNT 49 10^3/uL (130-400); WHITE BLOOD COUNT 4.3 10^3/uL (4.3-11.0)
[2021-11-28 05:08] LABS: ALBUMIN 2.9 GM/DL (3.2-4.5)
[2021-11-28 05:09] LABS: POTASSIUM 3.5 MMOL/L (3.6-5.0)
[2021-11-28 05:10] LABS: CALCIUM 7.6 MG/DL (8.5-10.1)
[2021-11-28 05:11] LABS: TOTAL PROTEIN 5.7 GM/DL (6.4-8.2)
[2021-11-28 05:13] LABS: BILIRUBIN,TOTAL 1.9 MG/DL (0.1-1.0)
[2021-11-28] MEDS: KCL 20 MEQ TAB (K-DUR) PO SCH (05:13)
[2021-11-28] MEDS: POTASSIUM CL 10MEQ/50ML IVPB 50 ML IV SCH (05:13)
[2021-11-28 05:14] LABS: PHOSPHORUS 1.3 MG/DL (2.3-4.7)
[2021-11-28 05:15] LABS: CREATININE SERUM 1.09 MG/DL (0.60-1.30)
[2021-11-28] MEDS: MAGNESIUM 1 GM/100 ML IVPB 100 ML IV SCH (06:09)
--- NOTE | 2021-11-28 07:06 | Progress Note - Hospitalist ---
Subjective HPI/CC On Admission Date Seen by Provider: Nov 28, 2021 Time Seen by Provider: 10:00 CC: Atrial Fibrillation with RVR with Pneumonia and Alcohol Withdrawal HPI: This is a 61F alcoholic clinic patient of [facility] who presented to the ER at [facility] with complaints of SOB and weakness. She was found to have A-Fib with RVR, along with pneumonia and alcohol withdrawal, acute kidney injury among other significant issues. She was placed in ICU. Cardiology was consulted, Cardizem drip was maintained. Potassium and Magnesium were very low those were replaced. Alcohol withdrawal was placed on protocol and will monitor patient closely in the meantime. Pt has guarded prognosis at this current time. Subjective/Events-last exam Patient doing a little better Back on a Cardizem drip for A. fib with RVR Flecainide started Antibiotics maintained Alcohol withdrawal still requiring treatment Review of Systems General: Fatigue, Malaise Pulmonary: Dyspnea, Cough Cardiovascular: Chest Pain Neurological: Confusion Focused Exam Lactate Level 11/26/21 00:48: Lactic Acid Level 3.53*H 11/26/21 02:51: Lactic Acid Level 2.07*H 11/26/21 04:55: Lactic Acid Level 1.86 Time of Focused Exam: 19:00 Objective Exam Vital Signs Vital Signs Date Time Temp Pulse Resp B/P (MAP) Pulse Ox O2 Delivery O2 Flow Rate FiO2 11/28/21 17:00 109 111/83 94 Nasal Cannula 4.00 11/28/21 16:00 97 11/28/21 16:00 15 11/28/21 15:47 36.6 Capillary Refill : Less Than 3 Seconds General Appearance: No Apparent Distress, WD/WN, Chronically ill Respiratory: Lungs Clear, Normal Breath Sounds Cardiovascular: Irregularly Irregular, Tachycardia Neurologic/Psychiatric: Alert, Depressed Affect Results/Procedures Lab Laboratory Tests 11/28/21 04:50 Patient resulted labs reviewed. Assessment/Plan Assessment and Plan Assess & Plan/Chief Complaint Assessment: Sepsis AF RVR PNA JUAQUIN Hypokalemia Hypomag ETOH withdrawal E. coli bacteremia Staph bacteremia Plan: IVF IV abx Cardiology ETOH w/d protocol 11/27/2021: Supportive care ICU required Alcohol withdrawal Antibiotics 11/28/2021: Supportive care Elichastityis A. fib with RVR Critical Care Critically Ill Patient Diagnosis/Problems Diagnosis/Problems (1) Paroxysmal atrial fibrillation Status: Acute (2) Pneumonia (3) Alcohol withdrawal (4) Lactic acidosis Status: Resolved Resolution Date/Time: 01/03/21 @ 12:01 (5) Acute respiratory failure due to COVID-19 Status: Acute (6) COPD (chronic obstructive pulmonary disease) Status: Chronic BENY WHEELER DO Nov 28, 2021 07:06
[2021-11-28] MEDS: PANTOPRAZOLE 40 MG (PROTONIX) VIAL IV SCH (08:15)
[2021-11-28] MEDS: FOLIC ACID 1 MG TAB PO SCH (08:16)
[2021-11-28] MEDS: MAGNESIUM OXIDE (MAG-OX)400 MG TAB PO SCH ×2 (08:16→20:44)
[2021-11-28] MEDS: APIXABAN 5 MG (ELIQUIS) TABLET PO SCH ×2 (08:16→20:43)
[2021-11-28] MEDS: DULoxetine 30 MG (CYMBALTA) CAP PO SCH (08:16)
[2021-11-28] MEDS: meTOprolol SUCCINATE 100 MG (TOPROL XL) TAB PO SCH (08:16)
[2021-11-28] MEDS: DOCUSATE SODIUM 100 MG (COLACE) CAP PO SCH ×2 (08:17→20:44)
[2021-11-28] MEDS: NICOTINE 21 MG (NICODERM) PATCH TD SCH (08:20)
[2021-11-28] MEDS ORDERED: KCL 20 MEQ TAB (K-DUR) PO ONE (09:00)
--- NOTE | 2021-11-28 09:41 | Cardiology Progress Note ---
Progress Note-Cardiology Events since last exam Date Seen by Provider: Nov 28, 2021 Time Seen by Provider: 09:36 Events since last exam I am following her due to atrial fibrillation. She developed recurrent atrial fibrillation last evening. Yesterday she did not receive her metoprolol due to low blood pressure. Diltiazem was restarted and her heart rates have improved but she remains in atrial fibrillation. She still complains of nearly constant chest pain as well as some shortness of breath. She has a multitude of cardiac and noncardiac complaints. However, she denies palpitations, syncope, or ankle edema. Certain portions of this document may have been dictated utilizing voice recognition technology. Inherent to this technology, typographical and grammatical errors may exist. As much as I am diligent to identify and correct these mistakes, some errors may remain in the document. Vitals Last set of Vitals Signs Vital Signs 11/28/21 11/28/21 11/28/21 11/28/21 07:52 08:00 08:08 08:33 Temp 36.4 Pulse 99 Resp 21 B/P (MAP) 104/72 Pulse Ox 94 O2 Delivery Nasal Cannula O2 Flow Rate 4.00 FiO2 90 Labs Labs Laboratory Tests 11/28/21 04:50 Exam Vital Signs Vital Signs Date Time Temp Pulse Resp B/P (MAP) Pulse Ox O2 Delivery O2 Flow Rate FiO2 11/28/21 08:33 Nasal Cannula 4.00 11/28/21 08:08 90 11/28/21 08:00 99 21 104/72 94 11/28/21 07:52 36.4 Physical Exam General: Alert but somewhat drowsy. No acute distress. She is obese. Eye: No xanthelasma. HENT: Normocephalic. Neck: Jugular venous pressure does not appear elevated. Respiratory: Lungs are clear to auscultation. Respirations are non-labored. Breath sounds are equal. Symmetrical chest wall expansion. Cardiovascular: Normal rate. Irregular rhythm. Distant S1/S2. 2/6 systolic ejection murmur. No gallop. No edema. Gastrointestinal: Soft. Normal bowel sounds. Skin: Warm. Dry. Neurologic: Alert and oriented to person, place, time. Cranial nerves 3-11 grossly intact. Psychiatric: Cooperative. Flat affect. Labs Laboratory Tests Test 11/28/21 04:50 Range/Units White Blood Count 4.3 4.3-11.0 10^3/uL Red Blood Count 2.91 L 3.80-5.11 10^6/uL Hemoglobin 9.1 L 11.5-16.0 g/dL Hematocrit 28 L 35-52 % Mean Corpuscular Volume 97 80-99 fL Mean Corpuscular Hemoglobin 31 25-34 pg Mean Corpuscular Hemoglobin Concent 32 32-36 g/dL Red Cell Distribution Width 15.2 H 10.0-14.5 % Platelet Count 49 L 130-400 10^3/uL Mean Platelet Volume 12.4 H 9.0-12.2 fL Immature Granulocyte % (Auto) 4 % Neutrophils (%) (Auto) 55 42-75 % Lymphocytes (%) (Auto) 22 12-44 % Monocytes (%) (Auto) 17 H 0-12 % Eosinophils (%) (Auto) 1 0-10 % Basophils (%) (Auto) 1 0-10 % Neutrophils # (Auto) 2.4 1.8-7.8 10^3/uL Lymphocytes # (Auto) 0.9 L 1.0-4.0 10^3/uL Monocytes # (Auto) 0.7 0.0-1.0 10^3/uL Eosinophils # (Auto) 0.0 0.0-0.3 10^3/uL Basophils # (Auto) 0.0 0.0-0.1 10^3/uL Immature Granulocyte # (Auto) 0.2 H 0.0-0.1 10^3/uL Sodium Level 132 L 135-145 MMOL/L Potassium Level 3.5 L 3.6-5.0 MMOL/L Chloride Level 100 98-107 MMOL/L Carbon Dioxide Level 19 L 21-32 MMOL/L Anion Gap 13 5-14 MMOL/L Blood Urea Nitrogen 16 7-18 MG/DL Creatinine 1.09 0.60-1.30 MG/DL Estimat Glomerular Filtration Rate 57 BUN/Creatinine Ratio 15 Glucose Level 85 70-105 MG/DL Calcium Level 7.6 L 8.5-10.1 MG/DL Corrected Calcium 8.5 8.5-10.1 MG/DL Phosphorus Level 1.3 L 2.3-4.7 MG/DL Magnesium Level 2.0 1.6-2.4 MG/DL Total Bilirubin 1.9 H 0.1-1.0 MG/DL Aspartate Amino Transf (AST/SGOT) 79 H 5-34 U/L Alanine Aminotransferase (ALT/SGPT) 50 0-55 U/L Alkaline Phosphatase 148 H 40-136 U/L Total Protein 5.7 L 6.4-8.2 GM/DL Albumin 2.9 L 3.2-4.5 GM/DL Diagnosis/Problems Diagnosis/Problems (1) Persistent atrial fibrillation Assessment & Plan: She had recurrent atrial fibrillation in the emergency room that converted to sinus rhythm on the first evening while on intravenous diltiazem. She then developed recurrent atrial fibrillation last evening and was placed back on the intravenous diltiazem. Her beta-tahir had been held due to low blood pressure. I will decrease the dose of beta-tahir. Due to the recurrent atrial fibrillation, I will start her on flecainide. She did have a nuclear stress test earlier this year that was normal and she does not have an y known history of coronary artery disease. Her [id number] score is 2 for female sex and hypertension. I resumed her apixaban. (2) Aortic stenosis Assessment & Plan: Her echocardiogram from this admission again shows mild aortic stenosis. This should not be causing symptoms but will need to be followed longitudinally. (3) Primary hypertension Assessment & Plan: As above, I have resumed her metoprolol. Her blood pressures have intermittently been running on the low side. I cut the dose of metoprolol succinate in half down to 50 mg daily. I put a hold order for systolic blood pressure less than 100 but asked the nurses to notify cardiology if they need to hold the beta-tahir. (4) Chest pain Status: Acute Assessment & Plan: Exact etiology unclear. She does not have any ischemic changes on her electrocardiogram and her troponin level was undetectable in the outside emergency room. She had a nuclear stress test in June 2021 that was normal. I suspect this is noncardiac chest pain, possibly due to musculoskeletal strain from her coughing which she had for at least a couple of days prior to admission. (5) Alcohol dependence Status: Acute Assessment & Plan: She was counseled about abstinence from alcohol. However, I did also tell her that her cardiac medications do not necessarily have any specific interaction with alcohol and that if she does resume heavy drinking, she should try to continue to take her cardiac medications. But again, I encouraged her to quit drinking. (6) Morbid obesity Status: Chronic Assessment & Plan: She needs to work on weight loss. She was counseled in this regard. CONI LEWSI JR, MD Nov 28, 2021 09:41
[2021-11-28] MEDS: FLECAINIDE 100 MG (TAMBOCOR) TAB PO SCH ×2 (10:43→20:44)
[2021-11-28] MEDS: VANCOMYCIN 1 GM/NS 250 ML IVPB IV SCH ×2 (10:48)
--- NOTE | 2021-11-28 14:46 | Tele-ICU Progress Note ---
Subjective Date Seen by a Provider: Nov 28, 2021 Time Seen by a Provider: 14:45 Subjective/Events-last exam (Tele-ICU Physician , Progress Note ) Available chart/ vitals / labs / Images reviewed Video assessment done using teleICU camera, rest of exam as per RN Discussed with RN , EXAM PER RN Events overnight : recurrent atrial fibrillation last evening. Afebrile FiO2 - 3l I/O = + Drips: Pressors: , hemodynamically stable Consultants: nasir Hospital course: (11/25) 61yr old female admitted with respiratory failure, chest pain, pneumonia, afib/rvr, hypokalemia and hypomagnesemia. Admits to drinking 1/5th a day. Last drink 3 days ago (11/28) Blood cultures return pos for ecoli and staph aureus. On Vanco A/P EtOH withdrawal -will continue PRN Ativan per CIWA score A fib RVR - as per cards , -did not receive her metoprolol due to low blood pressure - now on cardizem gtt - AC with eliquis ETOH withdrawal - cont CIWA E. coli bacteremia Staph bacteremia 11/25 - cont abx ( follow QTc interval as is on Levaquin-last QTc was 452 - repeat cx 11/28 Elevated LFT's Lines : (Central Line Necessity Reviewed) Mulligan: + OG: Nutrition: po Analgesia: Anxiety/ delirium eliquis VTE Prophylaxis: eliquis Stress Ulcer Prophylaxis: ppi Plans in collaboration with bedside consultants and IM MDs. Discussed with RN to reach out if any questions or concerns A total of 32 minutes of critical care time was devoted to this patient today, required to treat and/or prevent further deterioration of critical care condition ( as above) Sepsis Event Evaluation Height, Weight, BMI Height: '" Weight: lbs. oz. kg; 41.81 BMI Method: Focused Exam Lactate Level 11/26/21 00:48: Lactic Acid Level 3.53*H 11/26/21 02:51: Lactic Acid Level 2.07*H 11/26/21 04:55: Lactic Acid Level 1.86 Time of Focused Exam: 19:00 Exam Exam Patient acknowledged, consented, and participated in this virtual visit which was conducted using real time audio/video Vital Signs Date Time Temp Pulse Resp B/P (MAP) Pulse Ox O2 Delivery O2 Flow Rate FiO2 11/28/21 14:00 96 91 94/78 95 Nasal Cannula 4.00 11/28/21 13:00 95 34 90/61 96 Nasal Cannula 4.00 11/28/21 13:00 101 11/28/21 12:00 Nasal Cannula 5.00 90 11/28/21 12:00 90 18 99/63 92 Nasal Cannula 4.00 11/28/21 11:58 36.3 11/28/21 11:00 93 22 102/66 93 Nasal Cannula 4.00 11/28/21 10:00 99 8 105/74 94 Nasal Cannula 4.00 11/28/21 09:00 112 15 109/72 94 Nasal Cannula 4.00 11/28/21 08:33 Nasal Cannula 4.00 11/28/21 08:08 Nasal Cannula 5.00 90 11/28/21 08:00 99 21 104/72 94 Nasal Cannula 3.00 11/28/21 07:52 36.4 11/28/21 07:00 106 24 96/57 93 Nasal Cannula 3.00 11/28/21 07:00 108 11/28/21 06:00 98 27 121/92 93 Nasal Cannula 3.00 11/28/21 05:00 107 27 118/75 95 Nasal Cannula 3.00 11/28/21 04:00 36.7 107 21 146/87 95 Nasal Cannula 3.00 11/28/21 04:00 95 Nasal Cannula 3.00 11/28/21 03:00 112 22 120/86 96 Nasal Cannula 3.00 11/28/21 02:00 108 27 124/90 96 Nasal Cannula 3.00 11/28/21 01:00 121 11/28/21 01:00 110 16 115/77 98 Nasal Cannula 3.00 11/28/21 00:00 118 24 128/86 98 Nasal Cannula 3.00 11/27/21 23:25 99 Nasal Cannula 3.00 11/27/21 23:25 36.4 Nasal Cannula 3.00 11/27/21 23:00 118 29 111/74 99 Nasal Cannula 3.00 11/27/21 22:00 128 30 92/67 97 Nasal Cannula 3.00 11/27/21 21:00 118 28 97/76 97 Nasal Cannula 3.00 11/27/21 20:00 122 22 102/72 97 Nasal Cannula 3.00 11/27/21 19:00 37.6 112 26 106/66 95 Nasal Cannula 3.00 11/27/21 19:00 95 Nasal Cannula 3.00 11/27/21 19:00 120 11/27/21 18:00 101 24 120/75 90 Nasal Cannula 2.00 11/27/21 17:57 38.4 11/27/21 17:00 107 14 104/65 92 Nasal Cannula 2.00 11/27/21 16:03 97 Nasal Cannula 2.00 11/27/21 16:00 128 12 96/64 91 Nasal Cannula 11/27/21 15:00 96 33 113/74 92 Nasal Cannula 2.00 I & O 11/28/21 07:00 Intake Total 1635 ml Output Total 2550 ml Balance -915 ml Height & Weight Height: '" Weight: lbs. oz. kg; 41.81 BMI Method: General Appearance: No Apparent Distress, WD/WN, Chronically ill HEENT: PERRL/EOMI, Normal ENT Inspection, Pharynx Normal Neck: Full Range of Motion, Normal Inspection, Non Tender, Supple Respiratory: Lungs Clear, Normal Breath Sounds Cardiovascular: Regular Rate, Rhythm, Tachycardia Capillary Refill: Less Than 3 Seconds Peripheral Pulses: 2+ Radial Pulses (R), 2+ Radial Pulses (L) Gastrointestinal: normal bowel sounds, non tender, soft Extremity: Normal Capillary Refill, Normal Inspection, Normal Range of Motion, Non Tender, No Calf Tenderness, No Pedal Edema Neurologic/Psychiatric: Alert, Oriented x3, No Motor/Sensory Deficits, Normal Mood/Affect Skin: Normal Color, Warm/Dry Lymphatic: No Adenopathy Results Lab Laboratory Tests 11/27/21 04:20 11/28/21 04:50 Assessment/Plan Assessment/Plan ` IGLESIA DIEZ MD Nov 28, 2021 14:46
[2021-11-28] MEDS: QUEtiapine 200 MG (SEROquel) TAB IMMEDIATE RELEASE PO SCH (20:44)
[2021-11-28] MEDS: PRAMIPEXOLE 0.5 MG TAB (MIRAPEX) PO SCH (20:44)
[2021-11-28] MEDS: HYDROcodone/APAP 5 MG/325 MG (LORTAB) TAB PO PRN (20:45)
[2021-11-28 23:05] VITALS: BP 94/69
[2021-11-28] MEDS: LORazepam INJ 2 MG/ML (ATIVAN) VIAL IV PRN (23:46)
[2021-11-29] MEDS ORDERED: TROUGH ORDER-PHARMACY XX NR (03:00)
[2021-11-29 03:35] LABS: ALBUMIN 2.9 GM/DL (3.2-4.5); POTASSIUM 3.6 MMOL/L (3.6-5.0)
[2021-11-29 03:36] LABS: CALCIUM 8.2 MG/DL (8.5-10.1)
[2021-11-29 03:39] LABS: BILIRUBIN,TOTAL 1.6 MG/DL (0.1-1.0)
[2021-11-29 03:40] LABS: PHOSPHORUS 1.9 MG/DL (2.3-4.7)
[2021-11-29 03:41] LABS: CREATININE SERUM 1.11 MG/DL (0.60-1.30)
[2021-11-29 03:44] LABS: MAGNESIUM 2.2 MG/DL (1.6-2.4)
[2021-11-29 03:50] LABS: VANCOMYCIN,TROUGH 9.5 UG/ML (10.0-20.0)
[2021-11-29 04:12] LABS: BASOPHILS % (AUTO) 0 % (0-10); EOSINOPHILS % (AUTO) 0 % (0-10); HEMATOCRIT 35 % (35-52); HEMOGLOBIN 10.8 g/dL (11.5-16.0); LYMPHOCYTES # (AUTO) 0.3 10^3/uL (1.0-4.0); LYMPHOCYTES % (AUTO) 2 % (12-44); MEAN CORPUSCULAR HEMOGLOBIN 32 pg (25-34); MEAN CORPUSCULAR HGB CONC 31 g/dL (32-36); MEAN CORPUSCULAR VOLUME 102 fL (80-99); MEAN PLATELET VOLUME 11.5 fL (9.0-12.2); MONOCYTES # (AUTO) 0.7 10^3/uL (0.0-1.0); MONOCYTES % (AUTO) 5 % (0-12); NEUTROPHILS # (AUTO) 12.4 10^3/uL (1.8-7.8); NEUTROPHILS % (AUTO) 89 % (42-75); PLATELET COUNT 146 10^3/uL (130-400); WHITE BLOOD COUNT 13.9 10^3/uL (4.3-11.0)
[2021-11-29] MEDS: POTASSIUM CL 10MEQ/50ML IVPB 50 ML IV SCH (07:53)
[2021-11-29] MEDS: dilTIAZem DRIP PRE-MIX 125 ML IV SCH ×2 (07:53→18:25)
[2021-11-29] MEDS: KCL 20 MEQ TAB (K-DUR) PO SCH (07:54)
[2021-11-29] MEDS: MAGNESIUM 1 GM/100 ML IVPB 100 ML IV SCH (07:54)
[2021-11-29] MEDS ORDERED: POTASSIUM CL 10MEQ/50ML IVPB 50 ML IV SCH (08:15)
[2021-11-29] MEDS: VANCOMYCIN 1 GM/NS 250 ML IVPB IV SCH ×2 (08:15)
[2021-11-29] MEDS ORDERED: KCL 20 MEQ TAB (K-DUR) PO NR (08:59)
[2021-11-29] MEDS: DOCUSATE SODIUM 100 MG (COLACE) CAP PO SCH ×2 (09:00→20:41)
[2021-11-29] MEDS ORDERED: meTOprolol SUCCINATE 100 MG (TOPROL XL) TAB PO SCH (09:00)
[2021-11-29] MEDS ORDERED: meTOproloL SUCCINATE 50 MG (TOPROL XL) TAB PO SCH (09:00)
[2021-11-29] MEDS: NICOTINE 21 MG (NICODERM) PATCH TD SCH (09:00)
--- NOTE | 2021-11-29 09:00 | Tele-ICU Progress Note ---
Subjective Date Seen by a Provider: Nov 29, 2021 Time Seen by a Provider: 09:00 Subjective/Events-last exam (Tele-ICU Physician , Progress Note ) Available chart/ vitals / labs / Images reviewed Video assessment done using teleICU camera, rest of exam as per RN Discussed with RN , EXAM PER RN Events overnight : recurrent atrial fibrillation last evening. Afebrile FiO2 - 3l I/O = neg 1200 Drips: Pressors: , hemodynamically stable Consultants: nasir Hospital course: (11/25) 61yr old female admitted with respiratory failure, chest pain, pneumonia, afib/rvr, hypokalemia and hypomagnesemia. Admits to drinking 1/5th a day. Last drink 3 days ago (11/28) Blood cultures return pos for ecoli and staph aureus. On Vanco 11/29-OFF cardizem gtt A/P EtOH withdrawal -will continue PRN Ativan per CIWA score- neede only one dose last 12 h Hypoxia - BIPAP last night for lethargy empirically - NC now 4 L Lethargy - not needed lots of benzo - nhung check ABG - TSH is elevated ( can contributes to fatigue ) - w/up as per PCP A fib RVR - as per cards , -did not receive her metoprolol due to low blood pressure - OFF cardizem gtt - AC with eliquis ETOH withdrawal - cont CIWA E. coli bacteremia Staph bacteremia 11/25 - cont abx ( follow QTc interval as is on Levaquin-last QTc was 452 - repeated cx 11/28- pending Elevated LFT's Lines : (Central Line Necessity Reviewed) Mulligan: + OG: Nutrition: po Analgesia: Anxiety/ delirium VTE Prophylaxis: eliquis Stress Ulcer Prophylaxis: ppi Plans in collaboration with bedside consultants and IM MDs. Discussed with RN to reach out if any questions or concerns A total of 32 minutes of critical care time was devoted to this patient today, required to treat and/or prevent further deterioration of critical care condition ( as above) Sepsis Event Evaluation Height, Weight, BMI Height: '" Weight: lbs. oz. kg; 41.81 BMI Method: Focused Exam Time of Focused Exam: 19:00 Exam Exam Patient acknowledged, consented, and participated in this virtual visit which was conducted using real time audio/video Vital Signs Date Time Temp Pulse Resp B/P (MAP) Pulse Ox O2 Delivery O2 Flow Rate FiO2 11/29/21 08:00 37.2 93 24 92/67 99 Nasal Cannula 4.00 11/29/21 07:00 104 11/29/21 07:00 118 24 113/70 98 Nasal Cannula 4.00 11/29/21 06:00 120 130/90 98 Nasal Cannula 4.00 11/29/21 05:00 88 107/79 97 Nasal Cannula 4.00 11/29/21 04:00 89 108/72 98 Nasal Cannula 4.00 11/29/21 04:00 NIV Bilevel 40 11/29/21 03:00 90 108/74 94 Nasal Cannula 4.00 11/29/21 03:00 37.0 11/29/21 02:00 105 108/75 97 Nasal Cannula 4.00 11/29/21 01:00 104 11/29/21 01:00 104 104/71 94 Nasal Cannula 4.00 11/29/21 00:00 104 108/84 100 Nasal Cannula 4.00 11/29/21 00:00 NIV Bilevel 40 11/28/21 23:05 89 35 100 40.00 11/28/21 23:03 103 94/69 Nasal Cannula 4.00 11/28/21 22:00 87 92/66 96 Nasal Cannula 4.00 11/28/21 21:00 88 105/70 96 Nasal Cannula 4.00 11/28/21 20:00 85 115/82 98 Nasal Cannula 4.00 11/28/21 20:00 37.1 11/28/21 19:51 NIV Bilevel 40 11/28/21 19:00 100 96/59 91 Nasal Cannula 4.00 11/28/21 19:00 100 11/28/21 17:00 109 111/83 94 Nasal Cannula 4.00 11/28/21 16:00 Nasal Cannula 3.00 97 11/28/21 16:00 101 15 103/76 95 Nasal Cannula 4.00 11/28/21 15:47 36.6 11/28/21 15:00 100 119/78 97 Nasal Cannula 4.00 11/28/21 14:00 96 94/78 95 Nasal Cannula 4.00 11/28/21 13:00 95 34 90/61 96 Nasal Cannula 4.00 11/28/21 13:00 101 11/28/21 12:00 Nasal Cannula 5.00 90 6/19/22 12:00 90 18 99/63 92 Nasal Cannula 4.00 11/28/21 11:58 36.3 11/28/21 11:00 93 22 102/66 93 Nasal Cannula 4.00 11/28/21 10:00 99 8 105/74 94 Nasal Cannula 4.00 I & O 11/29/21 07:00 Intake Total 750 ml Output Total 1775 ml Balance -1025 ml Height & Weight Height: '" Weight: lbs. oz. kg; 41.81 BMI Method: General Appearance: No Apparent Distress, WD/WN, Chronically ill HEENT: PERRL/EOMI, Normal ENT Inspection, Pharynx Normal Neck: Full Range of Motion, Normal Inspection, Non Tender, Supple Respiratory: Lungs Clear, Normal Breath Sounds Cardiovascular: Irregularly Irregular, Tachycardia Capillary Refill: Less Than 3 Seconds Peripheral Pulses: 2+ Radial Pulses (R), 2+ Radial Pulses (L) Gastrointestinal: normal bowel sounds, non tender, soft Extremity: Normal Capillary Refill, Normal Inspection, Normal Range of Motion, Non Tender, No Calf Tenderness, No Pedal Edema Neurologic/Psychiatric: Alert, Depressed Affect Skin: Normal Color, Warm/Dry Lymphatic: No Adenopathy Results Lab Laboratory Tests 11/28/21 04:50 11/29/21 03:00 11/29/21 04:00 Assessment/Plan Assessment/Plan 1 IGLESIA DIEZ MD Nov 29, 2021 09:00
--- NOTE | 2021-11-29 09:14 | Cardiology Progress Note ---
Progress Note-Cardiology Events since last exam Date Seen by Provider: Nov 29, 2021 Time Seen by Provider: 09:10 Events since last exam I am following her due to atrial fibrillation. She developed recurrent atrial fibrillation while here in the hospital after having converted earlier during the hospitalization. She remains in the intensive care unit. She was up sitting in her chair. She still complains of vague discomfort all over her chest and back as well as shortness of breath. She denies palpitations, syncope, or ankle edema. Certain portions of this document may have been dictated utilizing voice recognition technology. Inherent to this technology, typographical and grammatical errors may exist. As much as I am diligent to identify and correct these mistakes, some errors may remain in the document. Vitals Last set of Vitals Signs Vital Signs 11/29/21 11/29/21 11/29/21 04:00 08:00 09:00 Temp 37.2 Pulse 130 Resp 24 B/P (MAP) 126/97 Pulse Ox 100 O2 Delivery Nasal Cannula O2 Flow Rate 4.00 FiO2 40 Labs Labs Laboratory Tests 11/29/21 03:00 11/29/21 04:00 Exam Vital Signs Vital Signs Date Time Temp Pulse Resp B/P (MAP) Pulse Ox O2 Delivery O2 Flow Rate FiO2 11/29/21 09:00 130 24 126/97 100 Nasal Cannula 4.00 11/29/21 08:00 37.2 11/29/21 04:00 40 Physical Exam General: Alert. No acute distress. She is obese. Eye: No xanthelasma. HENT: Normocephalic. Neck: Jugular venous pressure does not appear elevated. Respiratory: Lungs are clear to auscultation but with decreased breath sounds at the bases bilaterally. Respirations are non-labored. Breath sounds are equal. Symmetrical chest wall expansion. Cardiovascular: Normal rate. Irregular rhythm. Distant S1/S2. 2/6 systolic ejection murmur. No gallop. No edema. Gastrointestinal: Soft. Normal bowel sounds. Skin: Warm. Dry. Neurologic: Alert and oriented to person, place, time. Cranial nerves 3-11 grossly intact. Psychiatric: Cooperative. Appropriate mood & affect. Labs Laboratory Tests Test 11/29/21 03:00 11/29/21 04:00 Range/Units Sodium Level 133 L 135-145 MMOL/L Potassium Level 3.6 3.6-5.0 MMOL/L Chloride Level 100 98-107 MMOL/L Carbon Dioxide Level 20 L 21-32 MMOL/L Anion Gap 13 5-14 MMOL/L Blood Urea Nitrogen 17 7-18 MG/DL Creatinine 1.11 0.60-1.30 MG/DL Estimat Glomerular Filtration Rate 56 BUN/Creatinine Ratio 15 Glucose Level 104 70-105 MG/DL Calcium Level 8.2 L 8.5-10.1 MG/DL Corrected Calcium 9.1 8.5-10.1 MG/DL Phosphorus Level 1.9 L 2.3-4.7 MG/DL Magnesium Level 2.2 1.6-2.4 MG/DL Total Bilirubin 1.6 H 0.1-1.0 MG/DL Aspartate Amino Transf (AST/SGOT) 69 H 5-34 U/L Alanine Aminotransferase (ALT/SGPT) 45 0-55 U/L Alkaline Phosphatase 138 H 40-136 U/L Total Protein 6.0 L 6.4-8.2 GM/DL Albumin 2.9 L 3.2-4.5 GM/DL Vancomycin Level Trough 9.5 L 10.0-20.0 UG/ML White Blood Count 13.9 H 4.3-11.0 10^3/uL Red Blood Count 3.43 L 3.80-5.11 10^6/uL Hemoglobin 10.8 L 11.5-16.0 g/dL Hematocrit 35 35-52 % Mean Corpuscular Volume 102 H 80-99 fL Mean Corpuscular Hemoglobin 32 25-34 pg Mean Corpuscular Hemoglobin Concent 31 L 32-36 g/dL Red Cell Distribution Width 13.6 10.0-14.5 % Platelet Count 146 130-400 10^3/uL Mean Platelet Volume 11.5 9.0-12.2 fL Immature Granulocyte % (Auto) 4 % Neutrophils (%) (Auto) 89 H 42-75 % Lymphocytes (%) (Auto) 2 L 12-44 % Monocytes (%) (Auto) 5 0-12 % Eosinophils (%) (Auto) 0 0-10 % Basophils (%) (Auto) 0 0-10 % Neutrophils # (Auto) 12.4 H 1.8-7.8 10^3/uL Lymphocytes # (Auto) 0.3 L 1.0-4.0 10^3/uL Monocytes # (Auto) 0.7 0.0-1.0 10^3/uL Eosinophils # (Auto) 0.0 0.0-0.3 10^3/uL Basophils # (Auto) 0.0 0.0-0.1 10^3/uL Immature Granulocyte # (Auto) 0.5 H 0.0-0.1 10^3/uL Diagnosis/Problems Diagnosis/Problems (1) Persistent atrial fibrillation Assessment & Plan: She had recurrent atrial fibrillation in the emergency room that converted to sinus rhythm on the first evening while on intravenous diltiazem. She then developed recurrent atrial fibrillation on 11/28 and was placed back on the intravenous diltiazem. Her beta-tahir had been held due to low blood pressure. I decreased the dose of beta-tahir. Due to the recurrent atrial fibrillation, I started her on flecainide on 11/28. She did have a nuclear stress test earlier this year that was normal and she does not have any known history of coronary artery disease. Her [id number] score is 2 for female sex and hypertension. I resumed her apixaban. She remains in atrial fibrillation this morning. If she does not convert overnight, I will plan on a cardioversion on 11/30. (2) Aortic stenosis Assessment & Plan: Her echocardiogram from this admission again shows mild aortic stenosis which was similar to an echocardiogram from earlier this year. This should not be causing symptoms but will need to be followed longitudinally. (3) Primary hypertension Assessment & Plan: As above, I have resumed her metoprolol. Her blood pressures have intermittently been running on the low side. I cut the dose of metoprolol succinate in half down to 50 mg daily. I put a hold order for systolic blood pressure less than 100 but asked the nurses to notify cardiology if they need to hold the beta-tahir. (4) Chest pain Status: Acute Assessment & Plan: Exact etiology unclear. She does not have any ischemic changes on her electrocardiogram and her troponin level was undetectable in the outside emergency room. She had a nuclear stress test in June 2021 that was normal. I suspect this is noncardiac chest pain, possibly due to musculoskeletal strain from her coughing which she had for at least a couple of days prior to admission. (5) Alcohol dependence Status: Acute Assessment & Plan: She was counseled about abstinence from alcohol. However, I did also tell her that her cardiac medications do not necessarily have any specific interaction with alcohol and that if she does resume heavy drinking, she should try to continue to take her cardiac medications. But again, I encouraged her to quit drinking. (6) Morbid obesity Status: Chronic Assessment & Plan: She needs to work on weight loss. She was counseled in this regard. CONI LEWIS JR, MD Nov 29, 2021 09:14
[2021-11-29] MEDS: PANTOPRAZOLE 40 MG (PROTONIX) VIAL IV SCH (09:42)
[2021-11-29] MEDS: FOLIC ACID 1 MG TAB PO SCH (09:42)
[2021-11-29] MEDS: APIXABAN 5 MG (ELIQUIS) TABLET PO SCH ×2 (09:42→20:40)
[2021-11-29] MEDS: FLECAINIDE 100 MG (TAMBOCOR) TAB PO SCH ×2 (09:43→20:40)
[2021-11-29] MEDS: DULoxetine 30 MG (CYMBALTA) CAP PO SCH (09:43)
--- NOTE | 2021-11-29 10:06 | Progress Note ---
Subjective Subjective/Events-last exam Pt states she is not feeling well, hurts all over including skin and especially chest. She feels out of it but is oriented, just very drowsy. Focused Exam Time of Focused Exam: 19:00 Objective Exam Last Set of Vital Signs Vital Signs Date Time Temp Pulse Resp B/P (MAP) Pulse Ox O2 Delivery O2 Flow Rate FiO2 11/29/21 10:00 105 36 125/88 96 Nasal Cannula 4.00 11/29/21 08:00 37.2 11/29/21 04:00 40 Capillary Refill : Less Than 3 Seconds I&O Intake and Output 11/28/21 23:59 Intake Total 1100 ml Output Total 2300 ml Balance -1200 ml Intake Oral 700 ml IV Total 400 ml Output Urine Total 2300 ml General: Other (drowsy but arousable, oriented to self, location and month and year) HEENT: PERRLA, EOMI Lungs: Clear to Auscultation Heart: Other (irregularly irregular ) Abdomen: Normal Bowel Sounds, Soft Neuro: Normal Tone, Cranial Nerves 3-12 NL, Other (normal finger to nose testing) Results/Procedures Lab Laboratory Tests 11/29/21 03:00: Sodium Level 133L, Potassium Level 3.6, Chloride Level 100, Carbon Dioxide Level 20L, Anion Gap 13, Blood Urea Nitrogen 17, Creatinine 1.11, Estimat Glomerular Filtration Rate 56, BUN/Creatinine Ratio 15, Glucose Level 104, Calcium Level 8.2L, Corrected Calcium 9.1, Phosphorus Level 1.9L, Magnesium Level 2.2, Total Bilirubin 1.6H, Aspartate Amino Transf (AST/SGOT) 69H, Alanine Aminotransferase (ALT/SGPT) 45, Alkaline Phosphatase 138H, Total Protein 6.0L, Albumin 2.9L, Vancomycin Level Trough 9.5L 11/29/21 04:00: White Blood Count 13.9H, Red Blood Count 3.43L, Hemoglobin 10.8L, Hematocrit 35, Mean Corpuscular Volume 102H, Mean Corpuscular Hemoglobin 32, Mean Corpuscular Hemoglobin Concent 31L, Red Cell Distribution Width 13.6, Platelet Count 146, Mean Platelet Volume 11.5, Immature Granulocyte % (Auto) 4, Neutrophils (%) (Auto) 89H, Lymphocytes (%) (Auto) 2L, Monocytes (%) (Auto) 5, Eosinophils (%) (Auto) 0, Basophils (%) (Auto) 0, Neutrophils # (Auto) 12.4H, Lymphocytes # (Auto) 0.3L, Monocytes # (Auto) 0.7, Eosinophils # (Auto) 0.0, Basophils # (Auto) 0.0, Immature Granulocyte # (Auto) 0.5H Microbiology 11/25/21 Blood Culture - Final, Complete Escherichia coli Assessment/Plan Assessment/Plan Assessment & Plan Sepsis AF RVR PNA JUAQUIN Hypokalemia Hypomag ETOH withdrawal E. coli bacteremia Staph bacteremia (1) Pneumonia Status: Acute Assessment & Plan: Blood culture with E coli and MSSA, change antibiotics to ceftiraxone and d/c vancomycin. Qualifiers: Qualified Codes: J15.5 - Pneumonia due to Escherichia coli (2) Severe sepsis Status: Acute Assessment & Plan: Secondary to pneumonia. (3) Lactic acidosis Status: Resolved (4) Atrial fibrillation with RVR Status: Acute Assessment & Plan: Requiring diltiazem drip. Appreciate Cardiology recommendations. D dimer elevated on admit, CTA negative for PE. On apixaban. (5) COPD (chronic obstructive pulmonary disease) Status: Chronic (6) Alcohol dependence Status: Chronic Assessment & Plan: Alcohol withdrawal protocol initiated, scores low over last 24 hours, last lorazepam last night, do not suspect it is causing her somnolence this morning. (7) Alcohol withdrawal Status: Acute (8) Primary hypertension Status: Chronic (9) Chest pain Status: Acute (10) DVT prophylaxis Status: Acute Assessment & Plan: Apixaban. VICKI VICENTE MD Nov 29, 2021 10:06
[2021-11-29 10:15] LABS: ABG BASE EXCESS -3.5 MMOL/L (-2.5-2.5); ABG OXYGEN SATURATION 94 % (94-100); ABG PCO2 35 MMHG (35-45); ABG PH 7.38 (7.37-7.43); ABG PO2 62 MMHG (79-93); ABG TCO2 22.1 MMOL/L (21.0-31.0)
[2021-11-29 10:16] LABS: ALLENS TEST YES-POS; VENTILATOR NO
[2021-11-29 10:17] LABS: INSPIRED O2 4L / 40%
--- NOTE | 2021-11-29 10:19 | Physical Therapy Daily Note ---
PT Daily Note-Current Subjective Patient reluctantly agrees to PT. Mental Status Patient Orientation: Person, Time, Situation Attachments: Oxygen, Mulligan Catheter, IV Transfers SCALE: Activities may be completed with or without assistive devices. 3-Cjmckhotzy-siqbait completes the activity by him/herself with no assistance from a helper. 5-Set-up or Clean-up Assistance-helper sets up or cleans up; patient completes activity. [place] assists only prior to or following the activity. 4-Supervision or Touching Assistance-helper provides verbal cues and/or touching/steadying and/or contact guard assistance as patient completes activity. Assistance may be provided throughout the activity or intermittently. 3-Partial/Moderate Assistance-helper does LESS THAN HALF the effort. [place] lifts, holds or supports trunk or limbs, but provides less than half the effort. 2-Substantial/Maximal Assistance-helper does MORE THAN HALF the effort. [place] lifts or holds trunk or limbs and provides more than half the effort. 7-Utwjqhfpc-xcgwdx does ALL the effort. Patient does none of the effort to complete the activity. Or, the assistance of 2 or more helpers is required for the patient to complete the activity. If activity was not attempted, code reason: 7-Patient Refused. 9-Not Applicable-not attempted and the patient did not perform the activity before the current illness, exacerbation or injury. 10-Not Attempted due to Environmental Limitations-(lack of equipment, weather restraints, etc.). 88-Not Attempted due to Medical Conditions or Safety Concerns. Lying to Sitting/Side of Bed(Q: 4 Sit to Stand (QC): 4 Chair/Bji-wa-Mjnmi Xfer(QC): 4 Gait Training Walk 10 feet (QC): 7 Walk 50 ft with 2 Turns(QC): 7 Walk 150 ft (QC): 7 Exercises Seated Therapy Exercises: Ankle pumps, Long arc quads Seated Reps: 15 Assessment Patient performed a squat pivot transfer bed to chair SBA. Patient declined ambulation at this time. Increase activity as allow/tolerated by patient. PT Keyboard Operator Goals Keyboard Operator Goals PT Fpc Goals Time Frame: Dec 03, 2021 Roll Left & Right (QC): 6 Sit to Lying (QC): 6 Lying-Sitting on Side/Bed(QC): 6 Sit to Stand (QC): 4 (SBA) Chair/Ncf-jw-Jkmnj Xfer(QC): 4 (SBA) Walk 10 feet (QC): 4 (SBA) Walk 50ft with 2 Turns (QC): 4 (SBA) PT Plan Treatment/Plan Treatment Plan: Continue Plan of Care Treatment Plan: Bed Mobility, Education, Functional Activity Tian, Functional Strength, Gait, Safety, Therapeutic Exercise, Transfers Treatment Duration: Dec 03, 2021 Frequency: 6 times per week Estimated Hrs Per Day: .25 hour per day Patient and/or Family Agrees t: Yes Time/GCodes Time In: 800 Time Out: 814 Total Billed Treatment Time: 14 Total Billed Treatment 1 visit FA 14 min MAGDI LEIGH PT Nov 29, 2021 10:19
[2021-11-29] MEDS: cefTRIAXone 2,000 MG/NS 50 ML IVPB IV SCH ×2 (12:09)
[2021-11-29] MEDS: POT PHOS/NA PHOS (K-PHOS NEUTRAL) PO SCH ×2 (12:09→20:41)
--- NOTE | 2021-11-29 14:18 | Occupational Ther Daily Note ---
OT Current Status-Daily Note Subjective Pt sleepy but awake lying in bed. Pt agrees to therapy. No c/o pain. Mental Status/Objective Patient Orientation: Person, Unable to Assess (due to sleepiness) Attachments: Mulligan Catheter, IV, Oxygen, Telemetry ADL-Treatment Therapy Code Descriptions/Definitions Functional [place] Measure: 0=Not Assessed/NA 4=Minimal Assistance 1=Total Assistance 5=Supervision or Setup 2=Maximal Assistance 6=Modified [place] 3=Moderate Assistance 7=Complete IndependenceSCALE: Activities may be completed with or without assistive devices. 4-Rwasdeqvac-ukjpbug completes the activity by him/herself with no assistance from a helper. 5-Set-up or Clean-up Assistance-helper sets up or cleans up; patient completes activity. [place] assists only prior to or following the activity. 4-Supervision or Touching Assistance-helper provides verbal cues and/or touching/steadying and/or contact guard assistance as patient completes activity. Assistance may be provided throughout the activity or intermittently. 3-Partial/Moderate Assistance-helper does LESS THAN HALF the effort. [place] lifts, holds or supports trunk or limbs, but provides less than half the effort. 2-Substantial/Maximal Assistance-helper does MORE THAN HALF the effort. [place] lifts or holds trunk or limbs and provides more than half the effort. 3-Xlvtpgfvv-fnxcab does ALL the effort. Patient does none of the effort to complete the activity. Or, the assistance of 2 or more helpers is required for the patient to complete the activity. If activity was not attempted, code reason: 7-Patient Refused. 9-Not Applicable-not attempted and the patient did not perform the activity before the current illness, exacerbation or injury. 10-Not Attempted due to Environmental Limitations-(lack of equipment, weather restraints, etc.). 88-Not Attempted due to Medical Conditions or Safety Concerns. Other Treatment Pt able to follow simple directions to complete B UE exercises using light resistance. Skilled instruction for correct technique and modifications when necessary. Pt completed 4 exercises 1 set 5 reps of each. Pt fatigues quickly with each exercise. Pt able to demonstrate understanding of theraband exercises. After therapy, pt lying in bed with call light/phone in reach. All needs met in room. OT Insurance Claims Analyst Goals Insurance Claims Analyst Goals Time Frame: Dec 13, 2021 Eating (QC): 5 Oral Hygiene (QC): 5 Toileting Hygiene (QC): 4 Shower/Bathe Self (QC): 4 Upper Body Dressing (QC): 5 Lower Body Dressing (QC): 4 On/Off Footwear (QC): 4 1=Demonstrate adherence to instructed precautions during ADL tasks. 2=Patient will verbalize/demonstrate understanding of assistive devices/modifications for ADL. 3=Patient will improve strength/tolerance for activity to enable patient to perform ADL's. OT Education/Plan Problem List/Assessment Assessment: Decreased Activ Tolerance, Decreased Safety Aware, Decreased UE Strength Discharge Recommendations Plan/Recommendations: Continue POC Treatment Plan/Plan of Care Patient would benefit from OT for education, treatment and training to promote independence in ADL's, mobility, safety and/or upper extremity function for ADL's. Plan of Care: ADL Retraining, Cognitive Retraining, Functional Mobility, Group Exercise/Act as Ind, UE Funct Exercise/Act Treatment Duration: Dec 13, 2021 Frequency: 3 times per week (3-5x/week) Estimated Hrs Per Day: .25 hour per day Rehab Potential: Fair Time/GCodes Start Time: 13:43 Stop Time: 13:53 Total Time Billed (hr/min): 10 Billed Treatment Time 1 visit-EX 1 (10 min) YINA WHITFIELD Nov 29, 2021 14:18
[2021-11-29] MEDS ORDERED: dilTIAZem DRIP PRE-MIX 125 ML IV SCH (18:30)
[2021-11-29] MEDS: QUEtiapine 200 MG (SEROquel) TAB IMMEDIATE RELEASE PO SCH (20:40)
[2021-11-29] MEDS: PRAMIPEXOLE 0.5 MG TAB (MIRAPEX) PO SCH (20:41)
[2021-11-30 04:48] VITALS: BP 109/73
[2021-11-30] MEDS: KCL 20 MEQ TAB (K-DUR) PO SCH (05:33)
[2021-11-30] MEDS: POTASSIUM CL 10MEQ/50ML IVPB 50 ML IV SCH (05:33)
[2021-11-30] MEDS: MAGNESIUM 1 GM/100 ML IVPB 100 ML IV SCH (05:33)
--- NOTE | 2021-11-30 05:43 | Progress Note - Hospitalist ---
Subjective HPI/CC On Admission Date Seen by Provider: Nov 30, 2021 Time Seen by Provider: 10:00 CC: Atrial Fibrillation with RVR with Pneumonia and Alcohol Withdrawal HPI: This is a 61F alcoholic clinic patient of [facility] who presented to the ER at [facility] with complaints of SOB and weakness. She was found to have A-Fib with RVR, along with pneumonia and alcohol withdrawal, acute kidney injury among other significant issues. She was placed in ICU. Cardiology was consulted, Cardizem drip was maintained. Potassium and Magnesium were very low those were replaced. Alcohol withdrawal was placed on protocol and will monitor patient closely in the meantime. Pt has guarded prognosis at this current time. Subjective/Events-last exam Pt had a cardioversion today Afib was 125 on monitor Pt appears to be chronically ill Alcohol withdrawal seems to be improved Review of Systems General: Fatigue, Malaise Focused Exam Time of Focused Exam: 19:00 Objective Exam Vital Signs Vital Signs Date Time Temp Pulse Resp B/P (MAP) Pulse Ox O2 Delivery O2 Flow Rate FiO2 11/30/21 19:49 36.8 11/30/21 19:35 96 High Flow N/C 4.00 11/30/21 19:00 87 21 121/73 11/30/21 04:48 28 Capillary Refill : Less Than 3 Seconds General Appearance: No Apparent Distress, WD/WN, Chronically ill Respiratory: Lungs Clear, Normal Breath Sounds Cardiovascular: Irregularly Irregular, Tachycardia Neurologic/Psychiatric: Alert, Depressed Affect Results/Procedures Lab Laboratory Tests 11/30/21 06:25 Patient resulted labs reviewed. Assessment/Plan Assessment and Plan Assess & Plan/Chief Complaint Assessment: Sepsis AF RVR PNA JUAQUIN Hypokalemia Hypomag ETOH withdrawal E. coli bacteremia Staph bacteremia Plan: IVF IV abx Cardiology ETOH w/d protocol 11/27/2021: Supportive care ICU required Alcohol withdrawal Antibiotics 11/28/2021: Supportive care Eliquis A. fib with RVR 11/30: Cardioversion Critical Care Critically Ill Patient Diagnosis/Problems Diagnosis/Problems (1) Paroxysmal atrial fibrillation Status: Acute (2) Alcohol withdrawal Status: Acute (3) Lactic acidosis Status: Resolved Resolution Date/Time: 01/03/21 @ 12:01 (4) Acute respiratory failure due to COVID-19 Status: Resolved (5) COPD (chronic obstructive pulmonary disease) Status: Chronic BENY WHEELER DO Nov 30, 2021 05:43
[2021-11-30 06:46] LABS: BASOPHILS # (AUTO) 0.1 10^3/uL (0.0-0.1); BASOPHILS % (AUTO) 1 % (0-10); EOSINOPHILS # (AUTO) 0.1 10^3/uL (0.0-0.3); EOSINOPHILS % (AUTO) 0 % (0-10); HEMATOCRIT 30 % (35-52); HEMOGLOBIN 9.6 g/dL (11.5-16.0); LYMPHOCYTES # (AUTO) 2.2 10^3/uL (1.0-4.0); LYMPHOCYTES % (AUTO) 19 % (12-44); MEAN CORPUSCULAR HEMOGLOBIN 32 pg (25-34); MEAN CORPUSCULAR HGB CONC 33 g/dL (32-36); MEAN CORPUSCULAR VOLUME 98 fL (80-99); MEAN PLATELET VOLUME 11.5 fL (9.0-12.2); MONOCYTES # (AUTO) 1.4 10^3/uL (0.0-1.0); MONOCYTES % (AUTO) 12 % (0-12); NEUTROPHILS # (AUTO) 7.4 10^3/uL (1.8-7.8); NEUTROPHILS % (AUTO) 62 % (42-75); PLATELET COUNT 145 10^3/uL (130-400); WHITE BLOOD COUNT 11.9 10^3/uL (4.3-11.0)
[2021-11-30 06:58] LABS: ALBUMIN 2.7 GM/DL (3.2-4.5)
[2021-11-30 06:59] LABS: POTASSIUM 3.6 MMOL/L (3.6-5.0)
[2021-11-30 07:00] LABS: CALCIUM 8.2 MG/DL (8.5-10.1)
[2021-11-30 07:01] LABS: TOTAL PROTEIN 5.8 GM/DL (6.4-8.2)
[2021-11-30 07:03] LABS: BILIRUBIN,TOTAL 1.3 MG/DL (0.1-1.0)
[2021-11-30 07:04] LABS: PHOSPHORUS 2.8 MG/DL (2.3-4.7)
[2021-11-30 07:05] LABS: CREATININE SERUM 0.79 MG/DL (0.60-1.30)
[2021-11-30 07:07] LABS: MAGNESIUM 1.7 MG/DL (1.6-2.4)
[2021-11-30] MEDS ORDERED: NS IV 500 ML 500 ML ONE (09:03)
--- NOTE | 2021-11-30 09:26 | Cardiology Progress Note ---
Progress Note-Cardiology Events since last exam Date Seen by Provider: Nov 30, 2021 Time Seen by Provider: 09:22 Events since last exam I am following her due to atrial fibrillation. She remained in atrial fibri llation overnight. She seems to be asymptomatic with this. She continues to be somnolent. She has not received any Ativan for about the past 24 hours which has been prescribed for alcohol withdrawal. However, she has been taking some oxycodone for back pain. This morning she was somnolent prior to the cardioversion but denied chest discomfort, dyspnea, palpitations, syncope, or ankle edema. Certain portions of this document may have been dictated utilizing voice recognition technology. Inherent to this technology, typographical and grammatical errors may exist. As much as I am diligent to identify and correct these mistakes, some errors may remain in the document. Vitals Last set of Vitals Signs Vital Signs 11/30/21 11/30/21 11/30/21 11/30/21 11/30/21 03:25 04:48 06:03 07:21 07:38 Temp 36.7 Pulse 102 Resp 36 B/P (MAP) 107/71 Pulse Ox 91 O2 Delivery Nasal Cannula O2 Flow Rate 4.00 FiO2 28 Labs Labs Laboratory Tests 11/30/21 06:25 Exam Vital Signs Vital Signs Date Time Temp Pulse Resp B/P (MAP) Pulse Ox O2 Delivery O2 Flow Rate FiO2 11/30/21 07:38 91 Nasal Cannula 4.00 11/30/21 07:21 102 11/30/21 06:03 36 107/71 11/30/21 04:48 28 11/30/21 03:25 36.7 Physical Exam General: Somnolent but arousable to voice and answering questions however, she quickly falls back to sleep. No acute distress. She is obese. Eye: No xanthelasma. HENT: Normocephalic. Neck: Jugular venous pressure does not appear elevated. Respiratory: Lungs are clear to auscultation but decreased at the bases bilaterally. Respirations are non-labored. Breath sounds are equal. Symmetrical chest wall expansion. Cardiovascular: Normal rate. Regular rhythm. (Following cardioversion). Distant S1/S2. 2/6 systolic ejection murmur. No gallop. No edema. Gastrointestinal: Soft. Normal bowel sounds. Skin: Warm. Dry. Neurologic: Somnolent and seems to be oriented to person only but difficult to tell because she falls asleep.. Cranial nerves 3-11 grossly intact. Psychiatric: Cooperative when awake. Flat affect. Labs Laboratory Tests Test 11/29/21 10:00 11/30/21 06:25 Range/Units Blood Gas Puncture Site RT RAD Blood Gas Patient Temperature 36.0 Arterial Blood pH 7.38 7.37-7.43 Arterial Blood Partial Pressure CO2 35 35-45 MMHG Arterial Blood Partial Pressure O2 62 L 79-93 MMHG Arterial Blood HCO3 21 L 23-27 MMOL/L Arterial Blood Total CO2 22.1 21.0-31.0 MMOL/L Arterial Blood Oxygen Saturation 94 94-100 % Arterial Blood Base Excess -3.5 L -2.5-2.5 MMOL/L Ambrose Test YES-POS Blood Gas Ventilator Setting NO Blood Gas Inspired Oxygen 4L / 40% White Blood Count 11.9 H 4.3-11.0 10^3/uL Red Blood Count 3.02 L 3.80-5.11 10^6/uL Hemoglobin 9.6 L 11.5-16.0 g/dL Hematocrit 30 L 35-52 % Mean Corpuscular Volume 98 80-99 fL Mean Corpuscular Hemoglobin 32 25-34 pg Mean Corpuscular Hemoglobin Concent 33 32-36 g/dL Red Cell Distribution Width 15.9 H 10.0-14.5 % Platelet Count 145 130-400 10^3/uL Mean Platelet Volume 11.5 9.0-12.2 fL Immature Granulocyte % (Auto) 6 % Neutrophils (%) (Auto) 62 42-75 % Lymphocytes (%) (Auto) 19 12-44 % Monocytes (%) (Auto) 12 0-12 % Eosinophils (%) (Auto) 0 0-10 % Basophils (%) (Auto) 1 0-10 % Neutrophils # (Auto) 7.4 1.8-7.8 10^3/uL Lymphocytes # (Auto) 2.2 1.0-4.0 10^3/uL Monocytes # (Auto) 1.4 H 0.0-1.0 10^3/uL Eosinophils # (Auto) 0.1 0.0-0.3 10^3/uL Basophils # (Auto) 0.1 0.0-0.1 10^3/uL Immature Granulocyte # (Auto) 0.7 H 0.0-0.1 10^3/uL Sodium Level 135 135-145 MMOL/L Potassium Level 3.6 3.6-5.0 MMOL/L Chloride Level 101 98-107 MMOL/L Carbon Dioxide Level 22 21-32 MMOL/L Anion Gap 12 5-14 MMOL/L Blood Urea Nitrogen 11 7-18 MG/DL Creatinine 0.79 0.60-1.30 MG/DL Estimat Glomerular Filtration Rate 85 BUN/Creatinine Ratio 14 Glucose Level 83 70-105 MG/DL Calcium Level 8.2 L 8.5-10.1 MG/DL Corrected Calcium 9.2 8.5-10.1 MG/DL Phosphorus Level 2.8 2.3-4.7 MG/DL Magnesium Level 1.7 1.6-2.4 MG/DL Total Bilirubin 1.3 H 0.1-1.0 MG/DL Aspartate Amino Transf (AST/SGOT) 55 H 5-34 U/L Alanine Aminotransferase (ALT/SGPT) 35 0-55 U/L Alkaline Phosphatase 148 H 40-136 U/L Total Protein 5.8 L 6.4-8.2 GM/DL Albumin 2.7 L 3.2-4.5 GM/DL Diagnosis/Problems Diagnosis/Problems (1) Persistent atrial fibrillation Assessment & Plan: She had recurrent atrial fibrillation in the emergency room that converted to sinus rhythm on the first evening while on intravenous diltiazem. She then developed recurrent atrial fibrillation on 11/28 and was placed back on the intravenous diltiazem. Her beta-tahir had been held due to low blood pressure. I decreased the dose of beta-tahir. Due to the recurrent atrial fibrillation, I started her on flecainide on 11/28. She did have a nuclear stress test earlier this year that was normal and she does not have any known history of coronary artery disease. Her [id number] score is 2 for female sex and hypertension. I resumed her apixaban. She remains in atrial f ibrillation this morning. I have increased the flecainide and did a cardioversion this morning which was successful. We will continue beta-tahir and apixaban. (2) Aortic stenosis Status: Chronic Assessment & Plan: Her echocardiogram from this admission again shows mild aortic stenosis which was similar to an echocardiogram from earlier this year. This should not be causing symptoms but will need to be followed longitudinally. (3) Primary hypertension Status: Chronic Assessment & Plan: As above, I have resumed her metoprolol. Her blood pressures have intermittently been running on the low side. I cut the dose of metoprolol succinate in half down to 50 mg daily. I will decrease the dose to 25 mg daily due to ongoing low blood pressures. She needs to be on at least a low-dose of beta-tahir since she is now on flecainide for the atrial fibrillation. (4) Chest pain Status: Acute Assessment & Plan: Exact etiology unclear. She does not have any ischemic changes on her electrocardiogram and her troponin level was undetectable in the outside emergency room. She had a nuclear stress test in June 2021 that was normal. I suspect this is noncardiac chest pain, possibly due to musculoskeletal strain from her coughing which she had for at least a couple of days prior to admission. (5) Alcohol dependence Status: Chronic Assessment & Plan: She was counseled about abstinence from alcohol. However, I did also tell her that her cardiac medications do not necessarily have any specific interaction with alcohol and that if she does resume heavy drinking, she should try to continue to take her cardiac medications. But again, I encouraged her to quit drinking. (6) Morbid obesity Status: Chronic Assessment & Plan: She needs to work on weight loss. She was counseled in this regard. CONI LEWIS JR, MD Nov 30, 2021 09:26
--- NOTE | 2021-11-30 09:28 | Cardiac Procedure Note-KU ---
Cardiology Procedures Date of Procedure 11/30/21 DIRECT-CURRENT CARDIOVERSION INDICATION: Persistent atrial fibrillation. PROCEDURE: After informed consent for both the patient and her brother and in the fasting state, deep sedation was provided by the anesthesia department. I subsequently performed direct-current cardioversion in a stepwise fashion with synchronized, biphasic shocks starting with 50 J and then 100 J. With the second shock, she converted from atrial fibrillation to sinus rhythm. IMPRESSION: 1. Status post successful direct-current cardioversion with a final biphasic energy level of 100 J with conversion of atrial fibrillation to sinus rhythm. Certain portions of this document may have been dictated utilizing voice recognition technology. Inherent to this technology, typographical and grammatical errors may exist. As much as I am diligent to identify and correct these mistakes, some errors may remain in the document. CONI LEWIS JR, MD Nov 30, 2021 09:28
[2021-11-30] MEDS: APIXABAN 5 MG (ELIQUIS) TABLET PO SCH ×2 (09:31→20:28)
[2021-11-30] MEDS: PANTOPRAZOLE 40 MG (PROTONIX) VIAL IV SCH (09:31)
[2021-11-30] MEDS: DOCUSATE SODIUM 100 MG (COLACE) CAP PO SCH ×2 (09:31→20:28)
[2021-11-30] MEDS: FOLIC ACID 1 MG TAB PO SCH (09:31)
[2021-11-30] MEDS: DULoxetine 30 MG (CYMBALTA) CAP PO SCH (09:31)
[2021-11-30] MEDS: POT PHOS/NA PHOS (K-PHOS NEUTRAL) PO SCH ×2 (09:31→20:28)
--- NOTE | 2021-11-30 09:31 | Anesthesia-General Post-Op ---
MAC Patient Condition Mental Status/LOC: Same as Preop Cardiovascular: Satisfactory Nausea/Vomiting: Absent Respiratory: Satisfactory Pain: Controlled Complications: Absent Post Op Complications Complications None Follow Up Care/Instructions Patient Instructions None needed. Anesthesiology Discharge Order Discharge Order Patient is doing well, no complaints, stable vital signs, no apparent adverse anesthesia problems. No complications reported per nursing. DANIEL VACA CRNA Nov 30, 2021 09:31
[2021-11-30] MEDS ORDERED: proPOfol 200 MG/20 ML (DIPRIVAN) VIAL IV ONE (09:33)
[2021-11-30] MEDS: FLECAINIDE 100 MG (TAMBOCOR) TAB PO SCH ×2 (09:44→20:28)
--- NOTE | 2021-11-30 10:25 | Tele-ICU Progress Note ---
Subjective Date Seen by a Provider: Nov 30, 2021 Time Seen by a Provider: 10:25 Subjective/Events-last exam Tele-ICU Physician , Progress Note ) Available chart/ vitals / labs / Images reviewed Video assessment done using teleICU camera, rest of exam as per RN Discussed with RN , EXAM PER RN Events overnight : recurrent atrial fibrillation last evening. Afebrile FiO2 - 3l I/O = neg 1200 Drips: Pressors: , hemodynamically stable Consultants: nasir Hospital course: (11/25) 61yr old female admitted with respiratory failure, chest pain, pneumonia, afib/rvr, hypokalemia and hypomagnesemia. Admits to drinking 1/5th a day. Last drink 3 days ago (11/28) Blood cultures return pos for ecoli and staph aureus. On Vanco 11/29-OFF cardizem gtt -12/01- s/p cardioversion 12/01- sinus A/P EtOH withdrawal -will continue PRN Ativan per CIWA score- neede only one dose last 12 h Hypoxia - BIPAP last night for lethargy empirically - NC now 4 L Lethargy - not needed lots of benzo - nhung check ABG - TSH is elevated ( can contributes to fatigue ) - w/up as per PCP A fib RVR - as per cards , -s/p cardioversion 12/01- sinus - AC with eliquis ETOH withdrawal - cont CIWA E. coli bacteremia Staph bacteremia 11/25 - cont abx - cefepime - CONSIDER to stop tomorrow 9 7 days - repeated cx 11/28- NEGATIVE x2 Elevated LFT's Lines : (Central Line Necessity Reviewed) Mulligan: + OG: Nutrition: po Analgesia: Anxiety/ delirium VTE Prophylaxis: eliquis Stress Ulcer Prophylaxis: ppi Plans in collaboration with bedside consultants and IM MDs. Discussed with RN to reach out if any questions or concerns A total of 32 minutes of critical care time was devoted to this patient today, required to treat and/or prevent further deterioration of critical care condition ( as above) Sepsis Event Evaluation Height, Weight, BMI Height: '" Weight: lbs. oz. kg; 41.43 BMI Method: Focused Exam Time of Focused Exam: 19:00 Exam Exam Patient acknowledged, consented, and participated in this virtual visit which was conducted using real time audio/video Vital Signs Date Time Temp Pulse Resp B/P (MAP) Pulse Ox O2 Delivery O2 Flow Rate FiO2 11/30/21 10:00 88 12 104/60 93 High Flow N/C 4.00 11/30/21 09:15 112 11/30/21 09:00 103 35 109/65 93 High Flow N/C 4.00 11/30/21 08:00 36.1 11/30/21 08:00 117 23 110/68 93 High Flow N/C 4.00 11/30/21 07:38 91 Nasal Cannula 4.00 11/30/21 07:21 102 11/30/21 07:00 115 32 104/90 92 High Flow N/C 4.00 11/30/21 06:39 High Flow N/C 4.00 11/30/21 06:13 High Flow N/C 6.00 11/30/21 06:03 112 36 107/71 88 Nasal Cannula 4.00 11/30/21 05:00 85 23 106/76 92 Nasal Cannula 4.00 11/30/21 04:48 87 94 28 11/30/21 04:00 109 27 117/77 92 Nasal Cannula 4.00 11/30/21 03:25 36.7 87 23 109/73 93 Nasal Cannula 4.00 11/30/21 03:25 93 Nasal Cannula 4.00 11/30/21 03:00 96 23 101/67 93 Nasal Cannula 4.00 11/30/21 02:00 107 24 110/68 93 Nasal Cannula 4.00 11/30/21 01:00 105 23 102/62 95 Nasal Cannula 4.00 11/30/21 01:00 105 11/30/21 00:00 111 20 100/72 92 Nasal Cannula 4.00 11/29/21 23:00 36.4 104 20 98/70 94 Nasal Cannula 4.00 11/29/21 23:00 94 Nasal Cannula 4.00 11/29/21 22:00 129 107/78 95 Nasal Cannula 4.00 11/29/21 21:00 92 106/69 94 Nasal Cannula 4.00 11/29/21 20:00 117 26 101/77 95 Nasal Cannula 4.00 11/29/21 19:45 95 Nasal Cannula 4.00 11/29/21 19:00 111 11/29/21 19:00 36.3 126 16 109/78 94 Nasal Cannula 4.00 11/29/21 18:00 113 36 125/82 95 Nasal Cannula 4.00 11/29/21 17:00 112 32 115/74 95 Nasal Cannula 4.00 11/29/21 16:00 Nasal Cannula 4.00 11/29/21 16:00 105 22 107/73 95 Nasal Cannula 4.00 11/29/21 15:27 36.2 11/29/21 15:00 103 18 105/72 95 Nasal Cannula 4.00 11/29/21 14:00 118 28 118/79 97 Nasal Cannula 4.00 11/29/21 13:00 101 24 98/66 99 Nasal Cannula 4.00 11/29/21 12:50 114 11/29/21 12:00 105 24 105/71 99 Nasal Cannula 4.00 11/29/21 12:00 36.9 Nasal Cannula 4.00 11/29/21 12:00 Nasal Cannula 4.00 11/29/21 11:00 108 15 106/67 96 Nasal Cannula 4.00 I & O 11/30/21 07:00 Intake Total 950 ml Output Total 1635 ml Balance -685 ml Height & Weight Height: '" Weight: lbs. oz. kg; 41.43 BMI Method: General Appearance: No Apparent Distress, WD/WN, Chronically ill HEENT: PERRL/EOMI, Normal ENT Inspection, Pharynx Normal Neck: Full Range of Motion, Normal Inspection, Non Tender, Supple Respiratory: Lungs Clear, Normal Breath Sounds Cardiovascular: Irregularly Irregular, Tachycardia Capillary Refill: Less Than 3 Seconds Peripheral Pulses: 2+ Radial Pulses (R), 2+ Radial Pulses (L) Gastrointestinal: normal bowel sounds, non tender, soft Extremity: Normal Capillary Refill, Normal Inspection, Normal Range of Motion, Non Tender, No Calf Tenderness, No Pedal Edema Neurologic/Psychiatric: Alert, Depressed Affect Skin: Normal Color, Warm/Dry Lymphatic: No Adenopathy Results Lab Laboratory Tests 11/29/21 03:00 11/29/21 04:00 11/30/21 06:25 Assessment/Plan Assessment/Plan ` IGLESIA DIEZ MD Nov 30, 2021 10:25
[2021-11-30] MEDS: cefTRIAXone 2,000 MG/NS 50 ML IVPB IV SCH ×2 (12:55)
--- NOTE | 2021-11-30 14:00 | Occupational Ther Daily Note ---
OT Current Status-Daily Note Subjective Pt sitting in recliner, drowsy. Pt agrees to therapy. No c/o pain. Mental Status/Objective Patient Orientation: Person, Place, Time, Situation Attachments: IV, Oxygen (HiFlow 4L), Telemetry ADL-Treatment Set up to eat. Pt ate only a few bites of lunch. Pt is able to reach out and grasp cup then bring to mouth for drink. Pt agrees to oral care. After sup plies gathered and toothpaste applied to toothbrush, pt able to complete oral care with supervision. Call light/phone in reach, pt sitting in recliner after session. All needs met. Therapy Code Descriptions/Definitions Functional [place] Measure: 0=Not Assessed/NA 4=Minimal Assistance 1=Total Assistance 5=Supervision or Setup 2=Maximal Assistance 6=Modified [place] 3=Moderate Assistance 7=Complete IndependenceSCALE: Activities may be completed with or without assistive devices. 1-Nvswysmcvx-jebdcfd completes the activity by him/herself with no assistance from a helper. 5-Set-up or Clean-up Assistance-helper sets up or cleans up; patient completes a ctivity. [place] assists only prior to or following the activity. 4-Supervision or Touching Assistance-helper provides verbal cues and/or touching/steadying and/or contact guard assistance as patient completes activity. Assistance may be provided throughout the activity or intermittently. 3-Partial/Moderate Assistance-helper does LESS THAN HALF the effort. [place] lifts, holds or supports trunk or limbs, but provides less than half the effort. 2-Substantial/Maximal Assistance-helper does MORE THAN HALF the effort. [place] lifts or holds trunk or limbs and provides more than half the effort. 5-Psdlveuvy-vgorlz does ALL the effort. Patient does none of the effort to complete the activity. Or, the assistance of 2 or more helpers is required for the patient to complete the activity. If activity was not attempted, code reason: 7-Patient Refused. 9-Not Applicable-not attempted and the patient did not perform the activity before the current illness, exacerbation or injury. 10-Not Attempted due to Environmental Limitations-(lack of equipment, weather restraints, etc.). 88-Not Attempted due to Medical Conditions or Safety Concerns. Eating (QC): 5 Oral Hygiene (QC): 4 OT Educational Specialist Goals Detention Goals Time Frame: Dec 13, 2021 Eating (QC): 5 Oral Hygiene (QC): 5 Toileting Hygiene (QC): 4 Shower/Bathe Self (QC): 4 Upper Body Dressing (QC): 5 Lower Body Dressing (QC): 4 On/Off Footwear (QC): 4 1=Demonstrate adherence to instructed precautions during ADL tasks. 2=Patient will verbalize/demonstrate understanding of assistive devices/modifications for ADL. 3=Patient will improve strength/tolerance for activity to enable patient to perform ADL's. OT Education/Plan Problem List/Assessment Assessment: Decreased Activ Tolerance, Decreased UE Strength, Impaired Self- Care Skills Discharge Recommendations Plan/Recommendations: Continue POC Treatment Plan/Plan of Care Patient would benefit from OT for education, treatment and training to promote independence in ADL's, mobility, safety and/or upper extremity function for ADL's. Plan of Care: ADL Retraining, Cognitive Retraining, Functional Mobility, Group Exercise/Act as Ind, UE Funct Exercise/Act Treatment Duration: Dec 13, 2021 Frequency: 3 times per week (3-5x/week) Estimated Hrs Per Day: .25 hour per day Rehab Potential: Fair Time/GCodes Start Time: 13:26 Stop Time: 13:46 Total Time Billed (hr/min): 20 Billed Treatment Time 1 visit-ADL 1 (20 min) YINA WHITFIELD Nov 30, 2021 14:00
--- NOTE | 2021-11-30 15:51 | Physical Therapy Daily Note ---
PT Daily Note-Current Subjective Patient lying supine in bed upon PT arrival, agreeable to treatment but very drowsy. Mental Status Patient Orientation: Person, Place, Time, Situation Transfers SCALE: Activities may be completed with or without assistive devices. 5-Mtfaeqsgjm-ggrziia completes the activity by him/herself with no assistance from a helper. 5-Set-up or Clean-up Assistance-helper sets up or cleans up; patient completes activity. [place] assists only prior to or following the activity. 4-Supervision or Touching Assistance-helper provides verbal cues and/or touching/steadying and/or contact guard assistance as patient completes activity. Assistance may be provided throughout the activity or intermittently. 3-Partial/Moderate Assistance-helper does LESS THAN HALF the effort. [place] lifts, holds or supports trunk or limbs, but provides less than half the effort. 2-Substantial/Maximal Assistance-helper does MORE THAN HALF the effort. [place] lifts or holds trunk or limbs and provides more than half the effort. 2-Fztdaikcj-zltflv does ALL the effort. Patient does none of the effort to complete the activity. Or, the assistance of 2 or more helpers is required for the patient to complete the activity. If activity was not attempted, code reason: 7-Patient Refused. 9-Not Applicable-not attempted and the patient did not perform the activity before the current illness, exacerbation or injury. 10-Not Attempted due to Environmental Limitations-(lack of equipment, weather restraints, etc.). 88-Not Attempted due to Medical Conditions or Safety Concerns. Roll Left & Right (QC): 4 Sit to Lying (QC): 4 Lying to Sitting/Side of Bed(Q: 4 Sit to Stand (QC): 4 Chair/Idx-zl-Zreuc Xfer(QC): 4 Gait Training Does the Patient Walk?: Yes Distance: 4 Assessment Current Status: Poor Progress Patient very tired and groggy. Agreeable to treatment but difficulty awakening initially. Patient performs all observed bed mobility and transfers with CGA and verbal cues for safety and performance. Patient performs short steps with FWW to chair with CGA. Patient in chair post treatment with all needs met, nursing notified, call light in hand. PT Family And Divorce Legal Assistant Goals Family And Divorce Legal Assistant Goals PT Family And Divorce Legal Assistant Goals Time Frame: Dec 03, 2021 Roll Left & Right (QC): 6 Sit to Lying (QC): 6 Lying-Sitting on Side/Bed(QC): 6 Sit to Stand (QC): 4 (SBA) Chair/Nzm-gy-Wivls Xfer(QC): 4 (SBA) Walk 10 feet (QC): 4 (SBA) Walk 50ft with 2 Turns (QC): 4 (SBA) PT Plan Treatment/Plan Treatment Plan: Continue Plan of Care Treatment Plan: Bed Mobility, Education, Functional Activity Tian, Functional Strength, Gait, Safety, Therapeutic Exercise, Transfers Treatment Duration: Dec 03, 2021 Frequency: 6 times per week Estimated Hrs Per Day: .25 hour per day Patient and/or Family Agrees t: Yes Safety Risks/Education Patient Education: Transfer Techniques Teaching Recipient: Patient Teaching Methods: Demonstration, Discussion Response to Teaching: Verbalize Understanding, Return Demonstration Time/GCodes Time In: 1122 Time Out: 1136 Total Billed Treatment Time: 14 Total Billed Treatment Visit, FA REE COOPER PT Nov 30, 2021 15:51
[2021-11-30] MEDS: dilTIAZem DRIP PRE-MIX 125 ML IV SCH (19:42)
[2021-11-30] MEDS: PRAMIPEXOLE 0.5 MG TAB (MIRAPEX) PO SCH (20:28)
[2021-11-30] MEDS: QUEtiapine 200 MG (SEROquel) TAB IMMEDIATE RELEASE PO SCH (20:29)
[2021-12-01 05:21] LABS: BASOPHILS # (AUTO) 0.1 10^3/uL (0.0-0.1); BASOPHILS % (AUTO) 1 % (0-10); EOSINOPHILS # (AUTO) 0.1 10^3/uL (0.0-0.3); EOSINOPHILS % (AUTO) 1 % (0-10); HEMATOCRIT 28 % (35-52); HEMOGLOBIN 9.1 g/dL (11.5-16.0); LYMPHOCYTES # (AUTO) 2.4 10^3/uL (1.0-4.0); LYMPHOCYTES % (AUTO) 20 % (12-44); MEAN CORPUSCULAR HEMOGLOBIN 32 pg (25-34); MEAN CORPUSCULAR HGB CONC 33 g/dL (32-36); MEAN CORPUSCULAR VOLUME 98 fL (80-99); MEAN PLATELET VOLUME 10.4 fL (9.0-12.2); MONOCYTES # (AUTO) 0.9 10^3/uL (0.0-1.0); MONOCYTES % (AUTO) 7 % (0-12); NEUTROPHILS % (AUTO) 65 % (42-75); PLATELET COUNT 201 10^3/uL (130-400); WHITE BLOOD COUNT 12.3 10^3/uL (4.3-11.0)
[2021-12-01 05:30] LABS: ALBUMIN 2.7 GM/DL (3.2-4.5); POTASSIUM 3.3 MMOL/L (3.6-5.0)
[2021-12-01 05:31] LABS: CALCIUM 8.3 MG/DL (8.5-10.1)
[2021-12-01 05:32] LABS: TOTAL PROTEIN 5.7 GM/DL (6.4-8.2)
[2021-12-01 05:34] LABS: BILIRUBIN,TOTAL 1.2 MG/DL (0.1-1.0)
[2021-12-01 05:36] LABS: CREATININE SERUM 0.76 MG/DL (0.60-1.30); PHOSPHORUS 3.4 MG/DL (2.3-4.7)
[2021-12-01 05:39] LABS: MAGNESIUM 1.7 MG/DL (1.6-2.4)
[2021-12-01] MEDS: MAGNESIUM 1 GM/100 ML IVPB 100 ML IV SCH ×2 (05:56→06:08)
[2021-12-01] MEDS: POTASSIUM CL 10MEQ/50ML IVPB 50 ML IV SCH (05:56)
[2021-12-01] MEDS: KCL 20 MEQ TAB (K-DUR) PO SCH (05:56)
[2021-12-01] MEDS ORDERED: KCL 20 MEQ TAB (K-DUR) PO ONE ×2 (06:00→08:00)
[2021-12-01] MEDS: PANTOPRAZOLE 40 MG (PROTONIX) VIAL IV SCH (08:32)
[2021-12-01] MEDS: FOLIC ACID 1 MG TAB PO SCH (08:33)
[2021-12-01] MEDS: APIXABAN 5 MG (ELIQUIS) TABLET PO SCH ×2 (08:33→19:45)
[2021-12-01] MEDS: DOCUSATE SODIUM 100 MG (COLACE) CAP PO SCH ×2 (08:33→19:45)
[2021-12-01] MEDS: meTOproloL SUCCINATE 50 MG (TOPROL XL) TAB PO SCH (08:33)
[2021-12-01] MEDS: DULoxetine 30 MG (CYMBALTA) CAP PO SCH (08:33)
[2021-12-01] MEDS: FLECAINIDE 100 MG (TAMBOCOR) TAB PO SCH ×2 (08:34→19:45)
--- NOTE | 2021-12-01 09:23 | Physical Therapy Daily Note ---
PT Daily Note-Current Subjective Patient sitting in chair upon PT arrival, agreeable to treatment. Reports 7/10 pain in her abdomen and back, Nurse in the room during pain rating. Mental Status Patient Orientation: Person Attachments: Oxygen, Mulligan Catheter, IV Transfers SCALE: Activities may be completed with or without assistive devices. 2-Vbfrmarpvx-dccjwhn completes the activity by him/herself with no assistance from a helper. 5-Set-up or Clean-up Assistance-helper sets up or cleans up; patient completes activity. [place] assists only prior to or following the activity. 4-Supervision or Touching Assistance-helper provides verbal cues and/or touching/steadying and/or contact guard assistance as patient completes activity. Assistance may be provided throughout the activity or intermittently. 3-Partial/Moderate Assistance-helper does LESS THAN HALF the effort. [place] lifts, holds or supports trunk or limbs, but provides less than half the effort. 2-Substantial/Maximal Assistance-helper does MORE THAN HALF the effort. [place] lifts or holds trunk or limbs and provides more than half the effort. 1-Nyshsjqon-wxlxib does ALL the effort. Patient does none of the effort to complete the activity. Or, the assistance of 2 or more helpers is required for the patient to complete the activity. If activity was not attempted, code reason: 7-Patient Refused. 9-Not Applicable-not attempted and the patient did not perform the activity before the current illness, exacerbation or injury. 10-Not Attempted due to Environmental Limitations-(lack of equipment, weather restraints, etc.). 88-Not Attempted due to Medical Conditions or Safety Concerns. Sit to Stand (QC): 3 Chair/Shm-yl-Ewsjy Xfer(QC): 4 Gait Training Does the Patient Walk?: Yes Distance: 20 Walk 10 feet (QC): 4 Gait Assistive Device: FWW Exercises Supine Ex: Ankle pumps, Quad Set, Glut sets Supine Reps: 20 Assessment Current Status: Fair Progress Patient tolerated treatment fair. Performed LE exercises as listed above. Patient performs all observed transfers with min/SBA. Patient ambulates 20 feet in the room with FWW, with CGA and verbal cues for safety, progression and posture. Patient reports dizziness at midpoint of gait and requests to return to the chair. Patient in chair post treatment with all needs met, nursing notified, call light in reach. PT Drafter Marine Goals Prison Goals PT Drafter Marine Goals Time Frame: Dec 03, 2021 Roll Left & Right (QC): 6 Sit to Lying (QC): 6 Lying-Sitting on Side/Bed(QC): 6 Sit to Stand (QC): 4 (SBA) Chair/Djb-zi-Hgccg Xfer(QC): 4 (SBA) Walk 10 feet (QC): 4 (SBA) Walk 50ft with 2 Turns (QC): 4 (SBA) PT Plan Treatment/Plan Treatment Plan: Continue Plan of Care Treatment Plan: Bed Mobility, Education, Functional Activity Tian, Functional Strength, Gait, Safety, Therapeutic Exercise, Transfers Treatment Duration: Dec 03, 2021 Frequency: 6 times per week Estimated Hrs Per Day: .25 hour per day Patient and/or Family Agrees t: Yes Safety Risks/Education Patient Education: Gait Training, Transfer Techniques Teaching Recipient: Patient Teaching Methods: Demonstration, Discussion Response to Teaching: Verbalize Understanding, Return Demonstration Time/GCodes Time In: 841 Time Out: 906 Total Billed Treatment Time: 25 Total Billed Treatment Visit, Piter, REE Dewitt PT Dec 01, 2021 09:23
--- NOTE | 2021-12-01 09:25 | Cardiology Progress Note ---
Progress Note-Cardiology Events since last exam Date Seen by Provider: Dec 01, 2021 Time Seen by Provider: 09:23 Events since last exam I am following her due to atrial fibrillation. She remains in the intensive care unit. She is more awake and alert today than she has been during the entire hospitalization. She still has nearly constant chest pain. This is worse with deep breathing. She has a persistent cough and also shortness of breath. She denies palpitations or syncope. She still has mild ankle edema. Certain portions of this document may have been dictated utilizing voice recognition technology. Inherent to this technology, typographical and grammatical errors may exist. As much as I am diligent to identify and correct these mistakes, some errors may remain in the document. Vitals Last set of Vitals Signs Vital Signs 11/30/21 12/01/21 12/01/21 04:48 11:35 12:00 Temp 35.9 B/P (MAP) 117/71 FiO2 28 Labs Labs Laboratory Tests 12/01/21 05:14 Exam Vital Signs Vital Signs Date Time Temp Pulse Resp B/P (MAP) Pulse Ox O2 Delivery O2 Flow Rate FiO2 12/01/21 13:00 86 20 99 High Flow N/C 4.00 12/01/21 11:35 35.9 11/30/21 04:48 28 Physical Exam General: Somnolent but easily arousable. No acute distress. She is obese. Eye: No xanthelasma. HENT: Normocephalic. Neck: Jugular venous pressure does not appear elevated. Respiratory: Lungs have some scattered rhonchi. Respirations are non-labored. Breath sounds are equal. Symmetrical chest wall expansion. Cardiovascular: Normal rate. Regular rhythm. Distant S1/S2. 2/6 systolic ejection murmur. No gallop. 1+ bilateral pretibial edema. Gastrointestinal: Soft. Normal bowel sounds. Skin: Warm. Dry. Neurologic: Somnolent but easily arousable and oriented to person, place, time. Cranial nerves 3-11 grossly intact. Psychiatric: Cooperative. Appropriate mood & affect. Labs Laboratory Tests Test 12/01/21 05:14 Range/Units White Blood Count 12.3 H 4.3-11.0 10^3/uL Red Blood Count 2.84 L 3.80-5.11 10^6/uL Hemoglobin 9.1 L 11.5-16.0 g/dL Hematocrit 28 L 35-52 % Mean Corpuscular Volume 98 80-99 fL Mean Corpuscular Hemoglobin 32 25-34 pg Mean Corpuscular Hemoglobin Concent 33 32-36 g/dL Red Cell Distribution Width 15.7 H 10.0-14.5 % Platelet Count 201 130-400 10^3/uL Mean Platelet Volume 10.4 9.0-12.2 fL Immature Granulocyte % (Auto) 7 % Neutrophils (%) (Auto) 65 42-75 % Lymphocytes (%) (Auto) 20 12-44 % Monocytes (%) (Auto) 7 0-12 % Eosinophils (%) (Auto) 1 0-10 % Basophils (%) (Auto) 1 0-10 % Neutrophils # (Auto) 8.0 H 1.8-7.8 10^3/uL Lymphocytes # (Auto) 2.4 1.0-4.0 10^3/uL Monocytes # (Auto) 0.9 0.0-1.0 10^3/uL Eosinophils # (Auto) 0.1 0.0-0.3 10^3/uL Basophils # (Auto) 0.1 0.0-0.1 10^3/uL Immature Granulocyte # (Auto) 0.9 H 0.0-0.1 10^3/uL Sodium Level 136 135-145 MMOL/L Potassium Level 3.3 L 3.6-5.0 MMOL/L Chloride Level 99 98-107 MMOL/L Carbon Dioxide Level 23 21-32 MMOL/L Anion Gap 14 5-14 MMOL/L Blood Urea Nitrogen 8 7-18 MG/DL Creatinine 0.76 0.60-1.30 MG/DL Estimat Glomerular Filtration Rate 89 BUN/Creatinine Ratio 11 Glucose Level 85 70-105 MG/DL Calcium Level 8.3 L 8.5-10.1 MG/DL Corrected Calcium 9.3 8.5-10.1 MG/DL Phosphorus Level 3.4 2.3-4.7 MG/DL Magnesium Level 1.7 1.6-2.4 MG/DL Total Bilirubin 1.2 H 0.1-1.0 MG/DL Aspartate Amino Transf (AST/SGOT) 45 H 5-34 U/L Alanine Aminotransferase (ALT/SGPT) 30 0-55 U/L Alkaline Phosphatase 140 H 40-136 U/L Total Protein 5.7 L 6.4-8.2 GM/DL Albumin 2.7 L 3.2-4.5 GM/DL Diagnosis/Problems Diagnosis/Problems (1) Persistent atrial fibrillation Assessment & Plan: She had recurrent atrial fibrillation in the emergency room that converted to sinus rhythm on the first evening while on intravenous diltiazem. She then developed recurrent atrial fibrillation on 11/28 and was placed back on the intravenous diltiazem. Her beta-tahir had been held due to low blood pressure. I decreased the dose of beta-tahir. Due to the recurrent atrial fibrillation, I started her on flecainide on 11/28. She did have a nuclear stress test earlier this year that was normal and she does not have any known history of coronary artery disease. Her [id number] score is 2 for female sex and hypertension. I resumed her apixaban. On 11/30 I had her undergo a cardioversion which was successful. She should continue on beta-tahir, flecainide and apixaban. From a cardiac standpoint, she can be transferred out of the ICU to a medical bed on telemetry. (2) Aortic stenosis Status: Chronic Assessment & Plan: Her echocardiogram from this admission again shows mild aortic stenosis which was similar to an echocardiogram from earlier this year. This should not be causing symptoms but will need to be followed longitudinally. (3) Primary hypertension Status: Chronic Assessment & Plan: As above, I have resumed her metoprolol. Her blood pressures have intermittently been running on the low side. I have decreased her dose of metoprolol. She needs to be on at least a low-dose of beta-tahir since she is now on flecainide for the atrial fibrillation. (4) Chest pain Status: Acute Assessment & Plan: Exact etiology unclear. She does not have any ischemic changes on her electrocardiogram and her troponin level was undetectable in the outside emergency room. She had a nuclear stress test in June 2021 that was normal. I suspect this is noncardiac chest pain, possibly due to musculoskeletal strain from her coughing which she had for at least a couple of days prior to admission. (5) Acute on chronic respiratory failure with hypoxemia Assessment & Plan: Most likely due to pneumonia. She has been treated with antibiotics under the direction of the hospitalist. (6) Alcohol dependence Status: Chronic Assessment & Plan: She was counseled about abstinence from alcohol. However, I did also tell her that her cardiac medications do not necessarily have any specific interaction with alcohol and that if she does resume heavy drinking, she should try to continue to take her cardiac medications. But again, I encouraged her to quit drinking. (7) Morbid obesity Status: Chronic Assessment & Plan: She needs to work on weight loss. She was counseled in this regard. CONI LEWIS JR, MD Dec 01, 2021 09:25
[2021-12-01] MEDS ORDERED: guaiFENesin SYRUP 100 MG/5 ML 10 ML (ROBITUSSIN SF) PO PRN (09:30)
--- NOTE | 2021-12-01 10:00 | Diagnostic Imaging Report ---
INDICATION: Lower respiratory infection. EXAMINATION: PA and lateral chest. FINDINGS: There is an infiltrate present in the right lower lung and in the anterior segment of the right upper lobe. The left lung is clear. There is no appreciable effusion. IMPRESSION: Infiltrates in the right upper and lower lobes. There is minimal residual left perihilar atelectasis which has improved. The infiltrate in the right lung is stable compared to 11/27/2021. Dictated by: Dictated on workstation # [id number]
--- NOTE | 2021-12-01 10:46 | Tele-ICU Progress Note ---
Subjective Date Seen by a Provider: Dec 01, 2021 Time Seen by a Provider: 10:46 Subjective/Events-last exam Tele-ICU Physician , Progress Note ) Available chart/ vitals / labs / Images reviewed Video assessment done using teleICU camera, rest of exam as per RN Discussed with RN , EXAM PER RN Events overnight : recurrent atrial fibrillation last evening. Afebrile FiO2 - 3l I/O = neg 1200 Drips: Pressors: , hemodynamically stable Consultants: nasir Hospital course: (11/25) 61yr old female admitted with respiratory failure, chest pain, pneumonia, afib/rvr, hypokalemia and hypomagnesemia. Admits to drinking 1/5th a day. Last drink 3 days ago (11/28) Blood cultures return pos for ecoli and staph aureus. On Vanco 11/29-OFF cardizem gtt -12/01- s/p cardioversion 12/01- sinus A/P EtOH withdrawal -will continue PRN Ativan per CIWA score- MINIMAL NEEDS for benzo Hypoxia - BIPAP OFF - NC now 4 L Lethargy - not needed lots of benzo - TSH is elevated ( can contributes to fatigue ) - w/up as per PCP A fib RVR - as per cards , -s/p cardioversion 11/30- sinus - AC with eliquis ETOH withdrawal - cont CIWA E. coli bacteremia Staph bacteremia 11/25 - cont abx - cefepime - CONSIDER to stop today if ok with PCP - repeated cx 11/28- NEGATIVE x2 Elevated LFT's Lines : (Central Line Necessity Reviewed) Mulligan: + OG: Nutrition: po Analgesia: Anxiety/ delirium VTE Prophylaxis: eliquis Stress Ulcer Prophylaxis: ppi Plans in collaboration with bedside consultants and IM MDs. Discussed with RN to reach out if any questions or concerns A total of 32 minutes of critical care time was devoted to this patient today, required to treat and/or prevent further deterioration of critical care condition ( as above) Sepsis Event Evaluation Height, Weight, BMI Height: '" Weight: lbs. oz. kg; 40.91 BMI Method: Focused Exam Time of Focused Exam: 19:00 Exam Exam Patient acknowledged, consented, and participated in this virtual visit which was conducted using real time audio/video Vital Signs Date Time Temp Pulse Resp B/P (MAP) Pulse Ox O2 Delivery O2 Flow Rate FiO2 12/01/21 08:00 93 High Flow N/C 4.00 12/01/21 07:45 36.7 12/01/21 06:00 86 21 126/76 96 High Flow N/C 4.00 12/01/21 05:00 84 25 111/67 94 High Flow N/C 4.00 12/01/21 04:00 86 32 92/65 92 High Flow N/C 4.00 12/01/21 03:45 93 High Flow N/C 4.00 12/01/21 03:45 36.2 85 23 93 High Flow N/C 4.00 12/01/21 03:00 85 36 114/69 95 High Flow N/C 4.00 12/01/21 02:00 87 27 115/70 89 High Flow N/C 4.00 12/01/21 01:00 85 19 114/69 94 High Flow N/C 4.00 12/01/21 01:00 85 12/01/21 00:00 95 High Flow N/C 4.00 12/01/21 00:00 82 30 120/68 96 High Flow N/C 4.00 12/01/21 00:00 36.6 High Flow N/C 4.00 11/30/21 23:00 83 20 110/68 93 High Flow N/C 4.00 11/30/21 22:00 84 111/55 95 High Flow N/C 4.00 11/30/21 21:00 84 21 105/64 93 High Flow N/C 4.00 11/30/21 20:00 87 32 124/68 92 High Flow N/C 4.00 11/30/21 19:49 36.8 11/30/21 19:35 96 High Flow N/C 4.00 11/30/21 19:00 88 11/30/21 19:00 87 21 121/73 96 High Flow N/C 4.00 11/30/21 18:00 90 25 120/73 96 High Flow N/C 4.00 11/30/21 17:00 86 25 126/66 92 High Flow N/C 4.00 11/30/21 16:00 93 Nasal Cannula 4.00 11/30/21 16:00 85 17 106/61 95 High Flow N/C 4.00 11/30/21 16:00 36.2 11/30/21 15:00 85 16 122/72 97 High Flow N/C 4.00 11/30/21 14:00 86 27 123/74 95 High Flow N/C 4.00 11/30/21 13:00 85 26 118/68 97 High Flow N/C 4.00 11/30/21 12:33 87 11/30/21 12:00 93 Nasal Cannula 4.00 11/30/21 11:00 88 12 104/60 93 High Flow N/C 4.00 I & O 12/01/21 07:00 Intake Total 1590 ml Output Total 1720 ml Balance -130 ml Height & Weight Height: '" Weight: lbs. oz. kg; 40.91 BMI Method: General Appearance: No Apparent Distress, WD/WN, Chronically ill HEENT: PERRL/EOMI, Normal ENT Inspection, Pharynx Normal Neck: Full Range of Motion, Normal Inspection, Non Tender, Supple Respiratory: Lungs Clear, Normal Breath Sounds Cardiovascular: Irregularly Irregular, Tachycardia Capillary Refill: Less Than 3 Seconds Peripheral Pulses: 2+ Radial Pulses (R), 2+ Radial Pulses (L) Gastrointestinal: normal bowel sounds, non tender, soft Extremity: Normal Capillary Refill, Normal Inspection, Normal Range of Motion, Non Tender, No Calf Tenderness, No Pedal Edema Neurologic/Psychiatric: Alert, Depressed Affect Skin: Normal Color, Warm/Dry Lymphatic: No Adenopathy Results Lab Laboratory Tests 11/30/21 06:25 12/01/21 05:14 Assessment/Plan Assessment/Plan ` IGLESIA DIEZ MD Dec 01, 2021 10:46
[2021-12-01] MEDS: cefTRIAXone 2,000 MG/NS 50 ML IVPB IV SCH ×2 (11:39)
--- NOTE | 2021-12-01 13:07 | Occupational Ther Daily Note ---
OT Current Status-Daily Note Subjective Pt dowsy, but awake sitting in recliner. Pt agrees to therapy. No c/o pain. Mental Status/Objective Patient Orientation: Person, Place, Time, Situation Attachments: [place] Catheter, IV, Oxygen (HiFlow 4L), Telemetry ADL-Treatment Therapy Code Descriptions/Definitions Functional [place] Measure: 0=Not Assessed/NA 4=Minimal Assistance 1=Total Assistance 5=Supervision or Setup 2=Maximal Assistance 6=Modified [place] 3=Moderate Assistance 7=Complete IndependenceSCALE: Activities may be completed with or without assistive devices. 0-Xvapgtrltx-pzlspgq completes the activity by him/herself with no assistance from a helper. 5-Set-up or Clean-up Assistance-helper sets up or cleans up; patient completes activity. [place] assists only prior to or following the activity. 4-Supervision or Touching Assistance-helper provides verbal cues and/or touching/steadying and/or contact guard assistance as patient completes activity. Assistance may be provided throughout the activity or intermittently. 3-Partial/Moderate Assistance-helper does LESS THAN HALF the effort. [place] lifts, holds or supports trunk or limbs, but provides less than half the effort. 2-Substantial/Maximal Assistance-helper does MORE THAN HALF the effort. [place] lifts or holds trunk or limbs and provides more than half the effort. 4-Rvjspamyl-imxodf does ALL the effort. Patient does none of the effort to complete the activity. Or, the assistance of 2 or more helpers is required for the patient to complete the activity. If activity was not attempted, code reason: 7-Patient Refused. 9-Not Applicable-not attempted and the patient did not perform the activity before the current illness, exacerbation or injury. 10-Not Attempted due to Environmental Limitations-(lack of equipment, weather restraints, etc.). 88-Not Attempted due to Medical Conditions or Safety Concerns. Oral Hygiene (QC): 5 Other Treatment Pt given medium resistance theraband for B UE strengthening. Skilled instruction to complete exercises with correct technique. Pt tolerate 15 reps 1 set of shldr horizontal abd/add. Pt able to complete oral care by self after supplies gathered. Pt then was able to stand 2x's with education on breathing through nose when O2 sats below 90%. Pt able to stand and maintain 90%+. After session, pt sitting in recliner with call light/phone in reach. All needs met in room. OT Assisted Goals Assisted Goals Time Frame: Dec 13, 2021 Eating (QC): 5 Oral Hygiene (QC): 5 Toileting Hygiene (QC): 4 Shower/Bathe Self (QC): 4 Upper Body Dressing (QC): 5 Lower Body Dressing (QC): 4 On/Off Footwear (QC): 4 1=Demonstrate adherence to instructed precautions during ADL tasks. 2=Patient will verbalize/demonstrate understanding of assistive devices/modifications for ADL. 3=Patient will improve strength/tolerance for activity to enable patient to perform ADL's. OT Education/Plan Problem List/Assessment Assessment: Decreased Activ Tolerance, Decreased UE Strength, Impaired Funct Balance, Impaired Self-Care Skills Discharge Recommendations Plan/Recommendations: Continue POC Treatment Plan/Plan of Care Patient would benefit from OT for education, treatment and training to promote independence in ADL's, mobility, safety and/or upper extremity function for ADL's. Plan of Care: ADL Retraining, Cognitive Retraining, Functional Mobility, Group Exercise/Act as Ind, UE Funct Exercise/Act Treatment Duration: Dec 13, 2021 Frequency: 3 times per week (3-5x/week) Estimated Hrs Per Day: .25 hour per day Rehab Potential: Fair Time/GCodes Start Time: 12:36 Stop Time: 13:00 Total Time Billed (hr/min): 24 Billed Treatment Time 1 visit-EX 1 (8 min) FA 1 (16 min) YINA WHITFIELD Dec 01, 2021 13:07
--- NOTE | 2021-12-01 13:32 | Progress Note ---
Subjective Subjective/Events-last exam Afebrile, feeling a little better than yesterday, but still much worse than her baseline. Asking if she can get something for cough. Focused Exam Time of Focused Exam: 19:00 Objective Exam Last Set of Vital Signs Vital Signs Date Time Temp Pulse Resp B/P (MAP) Pulse Ox O2 Delivery O2 Flow Rate FiO2 12/01/21 11:35 35.9 12/01/21 08:00 93 High Flow N/C 4.00 12/01/21 06:00 86 21 126/76 11/30/21 04:48 28 Capillary Refill : Less Than 3 Seconds I&O Intake and Output 12/01/21 00:00 Intake Total 1390 ml Output Total 1420 ml Balance -30 ml Intake Oral 1040 ml IV Total 350 ml Output Urine Total 1420 ml General: Alert, No Acute Distress Lungs: Other (ronchi) Heart: Regular Rate Extremities: Other (1+ pitting edema) Neuro: Normal Speech Psych/Mental Status: Mood NL Results/Procedures Lab Laboratory Tests 12/01/21 05:14: White Blood Count 12.3H, Red Blood Count 2.84L, Hemoglobin 9.1L, Hematocrit 28L, Mean Corpuscular Volume 98, Mean Corpuscular Hemoglobin 32, Mean Corpuscular Hemoglobin Concent 33, Red Cell Distribution Width 15.7H, Platelet Count 201, Mean Platelet Volume 10.4, Immature Granulocyte % (Auto) 7, Neutrophils (%) (Auto) 65, Lymphocytes (%) (Auto) 20, Monocytes (%) (Auto) 7, Eosinophils (%) (Auto) 1, Basophils (%) (Auto) 1, Neutrophils # (Auto) 8.0H, Lymphocytes # (Auto) 2.4, Monocytes # (Auto) 0.9, Eosinophils # (Auto) 0.1, Basophils # (Auto) 0.1, Immature Granulocyte # (Auto) 0.9H, Sodium Level 136, Potassium Level 3.3L, Chloride Level 99, Carbon Dioxide Level 23, Anion Gap 14, Blood Urea Nitrogen 8, Creatinine 0.76, Estimat Glomerular Filtration Rate 89, BUN/Creatinine Ratio 11, Glucose Level 85, Calcium Level 8.3L, Corrected Calcium 9.3, Phosphorus Level 3.4, Magnesium Level 1.7, Total Bilirubin 1.2H, Aspartate Amino Transf (AST/SGOT) 45H, Alanine Aminotransferase (ALT/SGPT) 30, Alkaline Phosphatase 140H, Total Protein 5.7L, Albumin 2.7L Microbiology 11/28/21 Blood Culture - Preliminary, Resulted No growth Assessment/Plan Assessment/Plan Assessment & Plan Sepsis AF RVR PNA JUAQUIN Hypokalemia Hypomag ETOH withdrawal E. coli bacteremia Staph bacteremia (1) Pneumonia Status: Acute Assessment & Plan: 11/29: Blood culture with E coli and MSSA, change antibiotics to ceftriaxone and d/c vancomycin. Qualifiers: Qualified Codes: J15.5 - Pneumonia due to Escherichia coli (2) Severe sepsis Status: Resolved Assessment & Plan: Secondary to pneumonia. (3) Lactic acidosis Status: Resolved (4) Atrial fibrillation with RVR Status: Resolved Assessment & Plan: Requiring diltiazem drip. Appreciate Cardiology recommendations. D dimer elevated on admit, CTA negative for PE. On apixaban. 12/01 s/p cardioversion yesterday, monitor. Flecainide per Cardiology. (5) COPD (chronic obstructive pulmonary disease) Status: Chronic (6) Alcohol dependence Status: Chronic Assessment & Plan: 11/29 Alcohol withdrawal protocol initiated, scores low over last 24 hours, last lorazepam last night, do not suspect it is causing her somnolence this morning. 12/01 has not required further doses of lorazepam (7) Alcohol withdrawal Status: Acute (8) Primary hypertension Status: Chronic (9) Chest pain Status: Acute (10) DVT prophylaxis Status: Acute Assessment & Plan: Apixaban. VICKI VICENTE MD Dec 01, 2021 13:32
[2021-12-01] MEDS: PRAMIPEXOLE 0.5 MG TAB (MIRAPEX) PO SCH (19:45)
[2021-12-01] MEDS: QUEtiapine 200 MG (SEROquel) TAB IMMEDIATE RELEASE PO SCH (19:45)
[2021-12-02 06:11] LABS: BASOPHILS # (AUTO) 0.1 10^3/uL (0.0-0.1); BASOPHILS % (AUTO) 1 % (0-10); EOSINOPHILS % (AUTO) 0 % (0-10); HEMATOCRIT 27 % (35-52); HEMOGLOBIN 8.6 g/dL (11.5-16.0); LYMPHOCYTES # (AUTO) 1.9 10^3/uL (1.0-4.0); LYMPHOCYTES % (AUTO) 18 % (12-44); MEAN CORPUSCULAR HEMOGLOBIN 31 pg (25-34); MEAN CORPUSCULAR HGB CONC 32 g/dL (32-36); MEAN CORPUSCULAR VOLUME 98 fL (80-99); MEAN PLATELET VOLUME 10.5 fL (9.0-12.2); MONOCYTES # (AUTO) 0.5 10^3/uL (0.0-1.0); MONOCYTES % (AUTO) 5 % (0-12); NEUTROPHILS # (AUTO) 7.4 10^3/uL (1.8-7.8); NEUTROPHILS % (AUTO) 71 % (42-75); PLATELET COUNT 233 10^3/uL (130-400); WHITE BLOOD COUNT 10.4 10^3/uL (4.3-11.0)
[2021-12-02] MEDS: guaiFENesin/DM (ROBITUSSIN DM) 10 ML UDC PO PRN ×2 (06:12→15:12)
[2021-12-02 06:19] LABS: ALBUMIN 2.6 GM/DL (3.2-4.5); POTASSIUM 3.8 MMOL/L (3.6-5.0)
[2021-12-02 06:20] LABS: CALCIUM 8.4 MG/DL (8.5-10.1)
[2021-12-02 06:22] LABS: TOTAL PROTEIN 5.6 GM/DL (6.4-8.2)
[2021-12-02 06:25] LABS: CREATININE SERUM 0.72 MG/DL (0.60-1.30); PHOSPHORUS 3.2 MG/DL (2.3-4.7)
[2021-12-02 06:28] LABS: MAGNESIUM 1.8 MG/DL (1.6-2.4)
[2021-12-02] MEDS: APIXABAN 5 MG (ELIQUIS) TABLET PO SCH ×2 (08:57→20:17)
[2021-12-02] MEDS: meTOproloL SUCCINATE 50 MG (TOPROL XL) TAB PO SCH (08:57)
[2021-12-02] MEDS: DULoxetine 30 MG (CYMBALTA) CAP PO SCH (08:57)
[2021-12-02] MEDS: DOCUSATE SODIUM 100 MG (COLACE) CAP PO SCH ×2 (08:57→20:20)
[2021-12-02] MEDS: FLECAINIDE 100 MG (TAMBOCOR) TAB PO SCH ×2 (08:57→20:17)
[2021-12-02] MEDS: FOLIC ACID 1 MG TAB PO SCH (08:57)
[2021-12-02] MEDS: PANTOPRAZOLE 40 MG (PROTONIX) VIAL IV SCH (08:58)
--- NOTE | 2021-12-02 09:03 | Occupational Ther Daily Note ---
OT Current Status-Daily Note Subjective Pt alert, sitting up in bed. Pt coughing and having hard time catching breath. Guided pt with breathing techniques for calming. Pt agrees to therapy. Mental Status/Objective Patient Orientation: Person, Place, Time, Situation Attachments: IV, Oxygen, Telemetry ADL-Treatment Therapy Code Descriptions/Definitions Functional Bent Measure: 0=Not Assessed/NA 4=Minimal Assistance 1=Total Assistance 5=Supervision or Setup 2=Maximal Assistance 6=Modified Bent 3=Moderate Assistance 7=Complete IndependenceSCALE: Activities may be completed with or without assistive devices. 8-Geumgejnvm-itorldk completes the activity by him/herself with no assistance from a helper. 5-Set-up or Clean-up Assistance-helper sets up or cleans up; patient completes activity. [place] assists only prior to or following the activity. 4-Supervision or Touching Assistance-helper provides verbal cues and/or touch ing/steadying and/or contact guard assistance as patient completes activity. Assistance may be provided throughout the activity or intermittently. 3-Partial/Moderate Assistance-helper does LESS THAN HALF the effort. Sheyenne lifts, holds or supports trunk or limbs, but provides less than half the effort. 2-Substantial/Maximal Assistance-helper does MORE THAN HALF the effort. [place]yenne lifts or holds trunk or limbs and provides more than half the effort. 5-Znwpsjbdw-jmmvjk does ALL the effort. Patient does none of the effort to complete the activity. Or, the assistance of 2 or more helpers is required for the patient to complete the activity. If activity was not attempted, code reason: 7-Patient Refused. 9-Not Applicable-not attempted and the patient did not perform the activity before the current illness, exacerbation or injury. 10-Not Attempted due to Environmental Limitations-(lack of equipment, weather restraints, etc.). 88-Not Attempted due to Medical Conditions or Safety Concerns. Eating (QC): 6 Other Treatment Pt attempting to eat in bed. Pt agrees to sit in recliner to eat breakfast. Supine to EOB SBA with HOB raised. CGA for SPT from EOB to recliner. Pt able to complete own meal set up and uses regular utensils to eat. After session, pt sitting in recliner with call light/phone in reach. Nrsg aware of pt's position. All needs met. OT Shelter Goals Customer Acquisition Manager Goals Time Frame: Dec 13, 2021 Eating (QC): 5 Oral Hygiene (QC): 5 Toileting Hygiene (QC): 4 Shower/Bathe Self (QC): 4 Upper Body Dressing (QC): 5 Lower Body Dressing (QC): 4 On/Off Footwear (QC): 4 1=Demonstrate adherence to instructed precautions during ADL tasks. 2=Patient will verbalize/demonstrate understanding of assistive devices/modifications for ADL. 3=Patient will improve strength/tolerance for activity to enable patient to perform ADL's. OT Education/Plan Problem List/Assessment Assessment: Decreased Activ Tolerance, Decreased UE Strength, Impaired Self- Care Skills Discharge Recommendations Plan/Recommendations: Continue POC Treatment Plan/Plan of Care Patient would benefit from OT for education, treatment and training to promote independence in ADL's, mobility, safety and/or upper extremity function for ADL's. Plan of Care: ADL Retraining, Cognitive Retraining, Functional Mobility, Group Exercise/Act as Ind, UE Funct Exercise/Act Treatment Duration: Dec 13, 2021 Frequency: 3 times per week (3-5x/week) Estimated Hrs Per Day: .25 hour per day Rehab Potential: Fair Time/GCodes Start Time: 07:30 Stop Time: 07:47 Total Time Billed (hr/min): 17 Billed Treatment Time 1 visit-FA 1 (17 min) YNIA WHITFIELD Dec 02, 2021 09:03
[2021-12-02] MEDS: cefTRIAXone 2,000 MG/NS 50 ML IVPB IV SCH ×2 (10:14)
--- NOTE | 2021-12-02 10:20 | Physical Therapy Daily Note ---
PT Daily Note-Current Subjective Patient agrees to PT. Mental Status Patient Orientation: Person, Time, Situation Attachments: Oxygen (4L HF), Mulligan Catheter Transfers SCALE: Activities may be completed with or without assistive devices. 2-Atytjajwjm-hjmqase completes the activity by him/herself with no assistance from a helper. 5-Set-up or Clean-up Assistance-helper sets up or cleans up; patient completes activity. Morris assists only prior to or following the activity. 4-Supervision or Touching Assistance-helper provides verbal cues and/or touching/steadying and/or contact guard assistance as patient completes activity. Assistance may be provided throughout the activity or intermittently. 3-Partial/Moderate Assistance-helper does LESS THAN HALF the effort. Morris lifts, holds or supports trunk or limbs, but provides less than half the effort. 2-Substantial/Maximal Assistance-helper does MORE THAN HALF the effort. Morris lifts or holds trunk or limbs and provides more than half the effort. 7-Pittjqyze-twnvxp does ALL the effort. Patient does none of the effort to complete the activity. Or, the assistance of 2 or more helpers is required for the patient to complete the activity. If activity was not attempted, code reason: 7-Patient Refused. 9-Not Applicable-not attempted and the patient did not perform the activity before the current illness, exacerbation or injury. 10-Not Attempted due to Environmental Limitations-(lack of equipment, weather restraints, etc.). 88-Not Attempted due to Medical Conditions or Safety Concerns. Lying to Sitting/Side of Bed(Q: 4 Sit to Stand (QC): 4 Chair/Uwv-vk-Wbgud Xfer(QC): 4 Gait Training Distance: 150' Walk 10 feet (QC): 4 Walk 50 ft with 2 Turns(QC): 4 Walk 150 ft (QC): 4 Gait Assistive Device: FWW patient c/o dizziness with upright activity Assessment Patient up in recliner with needs met. Patient much improved on this date. Patient does c/o dizziness with up right activity. RN notified. PT [facility] Goals Wheelchair Van Driver Goals PT Wheelchair Van Driver Goals Time Frame: Dec 03, 2021 Roll Left & Right (QC): 6 Sit to Lying (QC): 6 Lying-Sitting on Side/Bed(QC): 6 Sit to Stand (QC): 4 (SBA) Chair/Tme-pb-Dzekk Xfer(QC): 4 (SBA) Walk 10 feet (QC): 4 (SBA) Walk 50ft with 2 Turns (QC): 4 (SBA) PT Plan Treatment/Plan Treatment Plan: Continue Plan of Care Treatment Plan: Bed Mobility, Education, Functional Activity Tian, Functional Strength, Gait, Safety, Therapeutic Exercise, Transfers Treatment Duration: Dec 03, 2021 Frequency: 6 times per week Estimated Hrs Per Day: .25 hour per day Patient and/or Family Agrees t: Yes Time/GCodes Time In: 940 Time Out: 951 Total Billed Treatment Time: 11 Total Billed Treatment 1 visit FA 11 min MAGDI LEIGH PT Dec 02, 2021 10:20
[2021-12-02 11:45] VITALS: BP 121/71
--- NOTE | 2021-12-02 12:15 | Cardiology Progress Note ---
Progress Note-Cardiology Events since last exam Date Seen by Provider: Dec 02, 2021 Time Seen by Provider: 12:14 Events since last exam I am following her for atrial fibrillation. On 12/01 she was transferred from the ICU to the medical floor. Her chest discomfort and dyspnea seem to be improving. She plans to be transferred to inpatient drug and alcohol rehab facility tomorrow. She denies palpitations or syncope. She has mild ankle edema. Certain portions of this document may have been dictated utilizing voice recognition technology. Inherent to this technology, typographical and grammatical errors may exist. As much as I am diligent to identify and correct these mistakes, some errors may remain in the document. Vitals Last set of Vitals Signs Vital Signs 12/02/21 12/02/21 12/02/21 08:00 08:18 11:45 Temp 36.0 Pulse 88 Resp 18 B/P (MAP) 121/71 (88) Pulse Ox 95 O2 Delivery Room Air O2 Flow Rate 4.00 FiO2 92 Labs Labs Laboratory Tests 12/02/21 05:38 Exam Vital Signs Vital Signs Date Time Temp Pulse Resp B/P (MAP) Pulse Ox O2 Delivery O2 Flow Rate FiO2 12/02/21 11:45 36.0 88 18 121/71 (88) 95 Room Air 12/02/21 08:18 4.00 12/02/21 08:00 92 Physical Exam General: Alert. No acute distress. She is much more awake and alert than she has been for this entire hospitalization. Eye: No xanthelasma. HENT: Normocephalic. Neck: Jugular venous pressure does not appear elevated. Respiratory: Lungs are clear to auscultation. Respirations are non-labored. Breath sounds are equal. Symmetrical chest wall expansion. Cardiovascular: Normal rate. Regular rhythm. Distant S1/S2. 2/6 systolic e jection murmur. No gallop. 1+ bilateral pretibial edema. Gastrointestinal: Soft. Normal bowel sounds. Skin: Warm. Dry. Neurologic: Alert and oriented to person, place, time. Cranial nerves 3-11 gross ly intact. Psychiatric: Cooperative. Appropriate mood & affect. Labs Laboratory Tests Test 12/02/21 05:38 Range/Units White Blood Count 10.4 4.3-11.0 10^3/uL Red Blood Count 2.75 L 3.80-5.11 10^6/uL Hemoglobin 8.6 L 11.5-16.0 g/dL Hematocrit 27 L 35-52 % Mean Corpuscular Volume 98 80-99 fL Mean Corpuscular Hemoglobin 31 25-34 pg Mean Corpuscular Hemoglobin Concent 32 32-36 g/dL Red Cell Distribution Width 15.5 H 10.0-14.5 % Platelet Count 233 130-400 10^3/uL Mean Platelet Volume 10.5 9.0-12.2 fL Immature Granulocyte % (Auto) 5 % Neutrophils (%) (Auto) 71 42-75 % Lymphocytes (%) (Auto) 18 12-44 % Monocytes (%) (Auto) 5 0-12 % Eosinophils (%) (Auto) 0 0-10 % Basophils (%) (Auto) 1 0-10 % Neutrophils # (Auto) 7.4 1.8-7.8 10^3/uL Lymphocytes # (Auto) 1.9 1.0-4.0 10^3/uL Monocytes # (Auto) 0.5 0.0-1.0 10^3/uL Eosinophils # (Auto) 0.0 0.0-0.3 10^3/uL Basophils # (Auto) 0.1 0.0-0.1 10^3/uL Immature Granulocyte # (Auto) 0.6 H 0.0-0.1 10^3/uL Sodium Level 139 135-145 MMOL/L Potassium Level 3.8 3.6-5.0 MMOL/L Chloride Level 102 98-107 MMOL/L Carbon Dioxide Level 27 21-32 MMOL/L Anion Gap 10 5-14 MMOL/L Blood Urea Nitrogen 7 7-18 MG/DL Creatinine 0.72 0.60-1.30 MG/DL Estimat Glomerular Filtration Rate 94 BUN/Creatinine Ratio 10 Glucose Level 92 70-105 MG/DL Calcium Level 8.4 L 8.5-10.1 MG/DL Corrected Calcium 9.5 8.5-10.1 MG/DL Phosphorus Level 3.2 2.3-4.7 MG/DL Magnesium Level 1.8 1.6-2.4 MG/DL Total Bilirubin 1.0 0.1-1.0 MG/DL Aspartate Amino Transf (AST/SGOT) 32 5-34 U/L Alanine Aminotransferase (ALT/SGPT) 23 0-55 U/L Alkaline Phosphatase 124 40-136 U/L Total Protein 5.6 L 6.4-8.2 GM/DL Albumin 2.6 L 3.2-4.5 GM/DL Diagnosis/Problems Diagnosis/Problems (1) Persistent atrial fibrillation Assessment & Plan: She had recurrent atrial fibrillation in the emergency room that converted to sinus rhythm on the first evening while on intravenous diltiazem. She then developed recurrent atrial fibrillation on 11/28 and was placed back on the intravenous diltiazem. Her beta-tahir had been held due to low blood pressure. I decreased the dose of beta-tahir. Due to the recurrent atrial fibrillation, I started her on flecainide on 11/28. She did have a nuclear stress test earlier this year that was normal and she does not have any known history of coronary artery disease. Her [id number] score is 2 for female sex and hypertension. I resumed her apixaban. On 11/30 I had her undergo a cardioversion which was successful. She should continue on beta-tahir, flecainide and apixaban. From a cardiac standpoint, she can discharge once her noncardiac issues are improved. I have sent prescriptions for beta-tahir, flecainide and apixaban to her regular outpatient pharmacy. I have asked the staff to get the patient a follow-up appointment with me in 1 month. (2) Aortic stenosis Status: Chronic Assessment & Plan: Her echocardiogram from this admission again shows mild aortic stenosis which was similar to an echocardiogram from earlier this year. This should not be causing symptoms but will need to be followed longitudinally. (3) Primary hypertension Status: Chronic Assessment & Plan: As above, I have resumed her metoprolol. Her blood pressures have intermittently been running on the low side. I have decreased her dose of metoprolol. She needs to be on at least a low-dose of beta-tahir since she is now on flecainide for the atrial fibrillation. (4) Chest pain Status: Acute Assessment & Plan: Exact etiology unclear. She does not have any ischemic changes on her electrocardiogram and her troponin level was undetectable in the outside emergency room. She had a nuclear stress test in June 2021 that was normal. I suspect this is noncardiac chest pain, possibly due to musculoskeletal strain from her coughing which she had for at least a couple of days prior to admission. The chest discomfort now seems to be improving. (5) Acute on chronic respiratory failure with hypoxemia Assessment & Plan: Most likely due to pneumonia. She has been treated with antibiotics under the direction of the hospitalist. (6) Alcohol dependence Status: Chronic Assessment & Plan: She was counseled about abstinence from alcohol. However, I did also tell her that her cardiac medications do not necessarily have any specific interaction with alcohol and that if she does resume heavy drinking, she should try to continue to take her cardiac medications. But again, I encouraged her to quit drinking. From a cardiac standpoint, she can be transferred to the inpatient alcohol rehabilitation facility at any point in time. (7) Morbid obesity Status: Chronic Assessment & Plan: She needs to work on weight loss. She was counseled in this regard. CONI LEWIS JR, MD Dec 02, 2021 12:15
[2021-12-02] MEDS ORDERED: FLEC100T PO (12:17)
[2021-12-02] MEDS ORDERED: METO50TA7 PO (12:17)
[2021-12-02] MEDS ORDERED: APIX5TAB PO (12:17)
--- NOTE | 2021-12-02 15:02 | Progress Note ---
Subjective Subjective/Events-last exam States she is still feeling very weak, had a hard time walking with PT, thinks she needs to try to work on that more today. Focused Exam Time of Focused Exam: 19:00 Objective Exam Last Set of Vital Signs Vital Signs Date Time Temp Pulse Resp B/P (MAP) Pulse Ox O2 Delivery O2 Flow Rate FiO2 12/02/21 13:33 92 12/02/21 11:45 36.0 18 121/71 (88) 95 Room Air 12/02/21 08:18 4.00 12/02/21 08:00 92 Capillary Refill : Less Than 3 Seconds I&O Intake and Output 12/02/21 00:00 Intake Total 1280 ml Output Total 2075 ml Balance -795 ml Intake Oral 1280 ml Output Urine Total 2075 ml General: Alert, No Acute Distress Lungs: Normal Air Movement Heart: Regular Rate, No Murmurs Extremities: Other (1+ pitting edema both legs) Psych/Mental Status: Other (flat affect) Results/Procedures Lab Laboratory Tests 12/02/21 05:38: White Blood Count 10.4, Red Blood Count 2.75L, Hemoglobin 8.6L, Hematocrit 27L, Mean Corpuscular Volume 98, Mean Corpuscular Hemoglobin 31, Mean Corpuscular Hemoglobin Concent 32, Red Cell Distribution Width 15.5H, Platelet Count 233, Mean Platelet Volume 10.5, Immature Granulocyte % (Auto) 5, Neutrophils (%) (Auto) 71, Lymphocytes (%) (Auto) 18, Monocytes (%) (Auto) 5, Eosinophils (%) (Auto) 0, Basophils (%) (Auto) 1, Neutrophils # (Auto) 7.4, Lymphocytes # (Auto) 1.9, Monocytes # (Auto) 0.5, Eosinophils # (Auto) 0.0, Basophils # (Auto) 0.1, Immature Granulocyte # (Auto) 0.6H, Sodium Level 139, Potassium Level 3.8, Chloride Level 102, Carbon Dioxide Level 27, Anion Gap 10, Blood Urea Nitrogen 7, Creatinine 0.72, Estimat Glomerular Filtration Rate 94, BUN/Creatinine Ratio 10, Glucose Level 92, Calcium Level 8.4L, Corrected Calcium 9.5, Phosphorus Level 3.2, Magnesium Level 1.8, Total Bilirubin 1.0, Aspartate Amino Transf (AST/SGOT) 32, Alanine Aminotransferase (ALT/SGPT) 23, Alkaline Phosphatase 124, Total Protein 5.6L, Albumin 2.6L Microbiology 11/28/21 Blood Culture - Preliminary, Resulted No growth Assessment/Plan Assessment/Plan Assessment & Plan Sepsis AF RVR PNA JUAQUIN Hypokalemia Hypomag ETOH withdrawal E. coli bacteremia Staph bacteremia (1) Pneumonia Status: Acute Assessment & Plan: 11/29: Blood culture with E coli and MSSA, change antibiotics to ceftriaxone and d/c vancomycin. 12/02: IV going bad, will change to cefdinir. Qualifiers: Qualified Codes: J15.5 - Pneumonia due to Escherichia coli (2) Severe sepsis Status: Resolved Assessment & Plan: Secondary to pneumonia. (3) Lactic acidosis Status: Resolved (4) Atrial fibrillation with RVR Status: Resolved Assessment & Plan: Requiring diltiazem drip. Appreciate Cardiology recommendations. D dimer elevated on admit, CTA negative for PE. On apixaban. 12/01 s/p cardioversion yesterday, monitor. Flecainide per Cardiology. (5) COPD (chronic obstructive pulmonary disease) Status: Chronic (6) Alcohol dependence Status: Chronic Assessment & Plan: 11/29 Alcohol withdrawal protocol initiated, scores low over last 24 hours, last lorazepam last night, do not suspect it is causing her somnolence this morning. 12/01 has not required further doses of lorazepam [facility] when d/c. (7) Alcohol withdrawal Status: Acute (8) Primary hypertension Status: Chronic (9) Chest pain Status: Acute Assessment & Plan: No ischemic changes on EKG, negative troponin and unremarkable stress test 06/2021. (10) Debility Status: Acute Assessment & Plan: Continue to work with PT, anticipate d/c tomorrow with walker (11) DVT prophylaxis Status: Acute Assessment & Plan: Apixaban. VICKI VICENTE MD Dec 02, 2021 15:02
[2021-12-02 15:56] VITALS: BP 149/85
[2021-12-02 20:00] VITALS: BP 138/69
[2021-12-02] MEDS: PRAMIPEXOLE 0.5 MG TAB (MIRAPEX) PO SCH (20:17)
[2021-12-02] MEDS: QUEtiapine 200 MG (SEROquel) TAB IMMEDIATE RELEASE PO SCH (20:18)
[2021-12-02] MEDS: CEFDINIR 300 MG (OMNICEF) CAP PO SCH (20:18)
[2021-12-02 23:10] VITALS: BP 123/74
[2021-12-03] MEDS: guaiFENesin/DM (ROBITUSSIN DM) 10 ML UDC PO PRN (03:10)
[2021-12-03] MEDS: RT-ALBUTEROL/IPRATROPIUM 3 ML (DUONEB) VIAL INH PRN ×2 (03:20→08:02)
[2021-12-03 04:36] VITALS: BP 125/64
[2021-12-03 07:01] LABS: BASOPHILS # (AUTO) 0.1 10^3/uL (0.0-0.1); BASOPHILS % (AUTO) 1 % (0-10); EOSINOPHILS % (AUTO) 0 % (0-10); HEMATOCRIT 27 % (35-52); HEMOGLOBIN 8.8 g/dL (11.5-16.0); LYMPHOCYTES # (AUTO) 1.5 10^3/uL (1.0-4.0); LYMPHOCYTES % (AUTO) 12 % (12-44); MEAN CORPUSCULAR HEMOGLOBIN 31 pg (25-34); MEAN CORPUSCULAR HGB CONC 32 g/dL (32-36); MEAN CORPUSCULAR VOLUME 98 fL (80-99); MEAN PLATELET VOLUME 10.1 fL (9.0-12.2); MONOCYTES # (AUTO) 0.6 10^3/uL (0.0-1.0); MONOCYTES % (AUTO) 5 % (0-12); NEUTROPHILS # (AUTO) 10.5 10^3/uL (1.8-7.8); NEUTROPHILS % (AUTO) 81 % (42-75); PLATELET COUNT 236 10^3/uL (130-400); WHITE BLOOD COUNT 12.9 10^3/uL (4.3-11.0)
[2021-12-03 07:11] LABS: ALBUMIN 2.9 GM/DL (3.2-4.5)
[2021-12-03 07:12] LABS: POTASSIUM 3.7 MMOL/L (3.6-5.0)
[2021-12-03 07:13] LABS: CALCIUM 8.6 MG/DL (8.5-10.1)
[2021-12-03 07:16] LABS: BILIRUBIN,TOTAL 1.1 MG/DL (0.1-1.0)
[2021-12-03 07:18] LABS: CREATININE SERUM 0.7 MG/DL (0.60-1.30)
[2021-12-03 07:39] VITALS: BP 139/80
[2021-12-03 08:08] VITALS: BP 139/80
[2021-12-03] MEDS ORDERED: RT-ALBUTEROL HFA 8.5 GM INHALER IH PRN (08:15)
--- NOTE | 2021-12-03 08:38 | Occupational Ther Daily Note ---
OT Current Status-Daily Note Subjective Pt seated in recliner upon OT arrival. Pt agreeable to tx. Pt was hungry and requested OT to call and order breakfast. Mental Status/Objective Patient Orientation: Person, Place, Situation Attachments: Oxygen (4L via NC) ADL-Treatment Therapy Code Descriptions/Definitions Functional [place] Measure: 0=Not Assessed/NA 4=Minimal Assistance 1=Total Assistance 5=Supervision or Setup 2=Maximal Assistance 6=Modified [place] 3=Moderate Assistance 7=Complete IndependenceSCALE: Activities may be completed with or without assistive devices. 2-Tbznlhrdej-tpfldqh completes the activity by him/herself with no assistance from a helper. 5-Set-up or Clean-up Assistance-helper sets up or cleans up; patient completes activity. [place] assists only prior to or following the activity. 4-Supervision or Touching Assistance-helper provides verbal cues and/or touching/steadying and/or contact guard assistance as patient completes activity. Assistance may be provided throughout the activity or intermittently. 3-Partial/Moderate Assistance-helper does LESS THAN HALF the effort. [place] lifts, holds or supports trunk or limbs, but provides less than half the effort. 2-Substantial/Maximal Assistance-helper does MORE THAN HALF the effort. [place] lifts or holds trunk or limbs and provides more than half the effort. 6-Wlbrkrgim-yagvdi does ALL the effort. Patient does none of the effort to complete the activity. Or, the assistance of 2 or more helpers is required for the patient to complete the activity. If activity was not attempted, code reason: 7-Patient Refused. 9-Not Applicable-not attempted and the patient did not perform the activity before the current illness, exacerbation or injury. 10-Not Attempted due to Environmental Limitations-(lack of equipment, weather restraints, etc.). 88-Not Attempted due to Medical Conditions or Safety Concerns. Oral Hygiene (QC): 4 (Supervision for standing balance) Other Treatment Pt stood from recliner, [facility], and used FWW to walk to bathroom, A, to complete oral hygiene and grooming tasks standing at the sink. Pt then returned to recliner with FWW, SBA. She was educated on the importance of holding onto FWW until back of BLEs are touching the recliner to increase safety and prevent falls. While seated in recliner, pt participated in BUE exercises with Theraband (red-med resistance), completed ~5-10 reps of 4 different exercises, brief RB between exercises. Post tx, pt left in recliner with call light in reach and needs met. Education OT Patient Education: Correct positioning, Energy conservation, Exercise program, Progress toward Goal/Update tx plan, Purpose of tx/functional activities, Rehab process, Transfer techniques Teaching Recipient: Patient Teaching Methods: Demonstration, Discussion Response to Teaching: Verbalize Understanding, Return Demonstration, Reinforcement Needed OT [facility] Goals [employer] Goals Time Frame: Dec 13, 2021 Eating (QC): 5 Oral Hygiene (QC): 5 Toileting Hygiene (QC): 4 Shower/Bathe Self (QC): 4 Upper Body Dressing (QC): 5 Lower Body Dressing (QC): 4 On/Off Footwear (QC): 4 1=Demonstrate adherence to instructed precautions during ADL tasks. 2=Patient will verbalize/demonstrate understanding of assistive devices/modifications for ADL. 3=Patient will improve strength/tolerance for activity to enable patient to perform ADL's. OT Education/Plan Problem List/Assessment Assessment: Decreased Activ Tolerance, Decreased Safety Aware, Decreased UE Strength, Impaired Funct Balance, Impaired I ADL's, Impaired Self-Care Skills Discharge Recommendations Plan/Recommendations: Continue POC Treatment Plan/Plan of Care Patient would benefit from OT for education, treatment and training to promote independence in ADL's, mobility, safety and/or upper extremity function for ADL' s. Plan of Care: ADL Retraining, Cognitive Retraining, Functional Mobility, Group Exercise/Act as Ind, UE Funct Exercise/Act Treatment Duration: Dec 13, 2021 Frequency: 3 times per week (3-5x/week) Estimated Hrs Per Day: .25 hour per day Rehab Potential: Fair Time/GCodes Start Time: 08:07 Stop Time: 08:23 Total Time Billed (hr/min): 16 Billed Treatment Time 1, ADL (16') BENITO HERNANDEZ OT Dec 03, 2021 08:38
[2021-12-03] MEDS: DOCUSATE SODIUM 100 MG (COLACE) CAP PO SCH (08:46)
[2021-12-03] MEDS: APIXABAN 5 MG (ELIQUIS) TABLET PO SCH (08:46)
[2021-12-03] MEDS: FOLIC ACID 1 MG TAB PO SCH (08:47)
[2021-12-03] MEDS: FLECAINIDE 100 MG (TAMBOCOR) TAB PO SCH (08:47)
[2021-12-03] MEDS: CEFDINIR 300 MG (OMNICEF) CAP PO SCH (08:47)
[2021-12-03] MEDS: DULoxetine 30 MG (CYMBALTA) CAP PO SCH (08:47)
[2021-12-03] MEDS: meTOproloL SUCCINATE 50 MG (TOPROL XL) TAB PO SCH (08:48)
[2021-12-03] MEDS ORDERED: PANTOPRAZOLE 40 MG (PROTONIX) TAB PO SCH (09:00)
--- NOTE | 2021-12-03 10:03 | Physical Therapy Daily Note ---
PT Daily Note-Current Subjective Patient much more alert on this date. Agrees to PT. Mental Status Patient Orientation: Normal For Age Attachments: Oxygen (5L HF NC), Mulligan Catheter Transfers SCALE: Activities may be completed with or without assistive devices. 2-Mvmozuikfs-csclpaf completes the activity by him/herself with no assistance from a helper. 5-Set-up or Clean-up Assistance-helper sets up or cleans up; patient completes activity. [place] assists only prior to or following the activity. 4-Supervision or Touching Assistance-helper provides verbal cues and/or touching/steadying and/or contact guard assistance as patient completes activity. Assistance may be provided throughout the activity or intermittently. 3-Partial/Moderate Assistance-helper does LESS THAN HALF the effort. [place] lifts, holds or supports trunk or limbs, but provides less than half the effort. 2-Substantial/Maximal Assistance-helper does MORE THAN HALF the effort. [place] lifts or holds trunk or limbs and provides more than half the effort. 5-Wlqclhkuc-awoxgg does ALL the effort. Patient does none of the effort to complete the activity. Or, the assistance of 2 or more helpers is required for the patient to complete the activity. If activity was not attempted, code reason: 7-Patient Refused. 9-Not Applicable-not attempted and the patient did not perform the activity before the current illness, exacerbation or injury. 10-Not Attempted due to Environmental Limitations-(lack of equipment, weather restraints, etc.). 88-Not Attempted due to Medical Conditions or Safety Concerns. Sit to Stand (QC): 6 Gait Training Distance: 250' Walk 10 feet (QC): 6 Walk 50 ft with 2 Turns(QC): 6 Walk 150 ft (QC): 6 Gait Assistive Device: FWW safe and functional with no deviation Assessment Current Status: Excellent Progress Patient much improved on this date. PT to dismiss patient from services due to independent PLOF. PT [employer] Goals Half-Way Goals PT [employer] Goals Time Frame: Dec 03, 2021 Roll Left & Right (QC): 6 Sit to Lying (QC): 6 Lying-Sitting on Side/Bed(QC): 6 Sit to Stand (QC): 4 (SBA) Chair/Koy-sa-Jwqse Xfer(QC): 4 (SBA) Walk 10 feet (QC): 4 (SBA) Walk 50ft with 2 Turns (QC): 4 (SBA) PT Plan Treatment/Plan Treatment Plan: Discontinue PT Treatment Plan: Bed Mobility, Education, Functional Activity Tian, Functional Strength, Gait, Safety, Therapeutic Exercise, Transfers Treatment Duration: Dec 03, 2021 Frequency: 6 times per week Estimated Hrs Per Day: .25 hour per day Patient and/or Family Agrees t: Yes Time/GCodes Time In: 907 Time Out: 917 Total Billed Treatment Time: 10 Total Billed Treatment 1 visit FA 10 min MAGDI LEIGH PT Dec 03, 2021 10:03
[2021-12-03 11:12] VITALS: BP 142/86
--- NOTE | 2021-12-03 11:19 | Discharge Summary ---
Discharge Summary Hospital Course Problems/Diagnosis: (1) Pneumonia Status: Acute Assessment & Plan: 11/29: Blood culture with E coli and MSSA, change antibiotics to ceftriaxone and d/c vancomycin. 12/02: IV went bad, changed to cefdinir, completed course prior to d/c. Qualifiers: Qualified Codes: J15.5 - Pneumonia due to Escherichia coli (2) Severe sepsis Status: Resolved Resolution Date/Time: 12/01/21 @ 13:30 Assessment & Plan: Secondary to pneumonia. (3) Lactic acidosis Status: Resolved Resolution Date/Time: 01/03/21 @ 12:01 (4) Atrial fibrillation with RVR Status: Resolved Resolution Date/Time: 12/01/21 @ 13:30 Assessment & Plan: Requiring diltiazem drip. Appreciate Cardiology rec ommendations. D dimer elevated on admit, CTA negative for PE. On apixaban. 12/01 s/p cardioversion yesterday, monitor. Flecainide per Cardiology. (5) COPD (chronic obstructive pulmonary disease) Status: Chronic Assessment & Plan: Required 5 lpm supplemental oxygen on d/c. (6) Alcohol dependence Status: Chronic Assessment & Plan: 11/29 Alcohol withdrawal protocol initiated, scores low over last 24 hours, last lorazepam last night, do not suspect it is causing her somnolence this morning. 12/01 has not required further doses of lorazepam [facility] d/c. (7) Alcohol withdrawal Status: Resolved Resolution Date/Time: 12/03/21 @ 11:17 (8) Primary hypertension Status: Chronic (9) Chest pain Status: Acute Assessment & Plan: No ischemic changes on EKG, negative troponin and unremarkable stress test 06/2021. (10) Debility Status: Acute Assessment & Plan: Walker ordered for home use. Hospital Course Date of Admission: Nov 25, 2021 at 22:21 Admission Diagnosis : Family Physician/Provider: Lida Storm MD Date of Discharge: 12/03/21 Discharge Diagnosis: See problem list Hospital Course: See problem list Labs and Pending Lab Test: Laboratory Tests 12/03/21 06:51: White Blood Count 12.9H, Red Blood Count 2.80L, Hemoglobin 8.8L, Hematocrit 27L, Mean Corpuscular Volume 98, Mean Corpuscular Hemoglobin 31, Mean Corpuscular Hemoglobin Concent 32, Red Cell Distribution Width 15.4H, Platelet Count 236, Mean Platelet Volume 10.1, Immature Granulocyte % (Auto) 2, Neutrophils (%) (Auto) 81H, Lymphocytes (%) (Auto) 12, Monocytes (%) (Auto) 5, Eosinophils (%) (Auto) 0, Basophils (%) (Auto) 1, Neutrophils # (Auto) 10.5H, Lymphocytes # (Auto) 1.5, Monocytes # (Auto) 0.6, Eosinophils # (Auto) 0.0, Basophils # (Auto) 0.1, Immature Granulocyte # (Auto) 0.2H, Sodium Level 138, Potassium Level 3.7, Chloride Level 99, Carbon Dioxide Level 28, Anion Gap 11, Blood Urea Nitrogen 6L , Creatinine 0.70, Estimat Glomerular Filtration Rate 98, BUN/Creatinine Ratio 9, Glucose Level 100, Calcium Level 8.6, Corrected Calcium 9.5, Total Bilirubin 1.1H, Aspartate Amino Transf (AST/SGOT) 33, Alanine Aminotransferase (ALT/SGPT) 23, Alkaline Phosphatase 109, Total Protein 6.0L, Albumin 2.9L Microbiology 11/28/21 Blood Culture - Preliminary, Resulted No growth Home Meds Active Flecainide Acetate 100 Mg Tablet 150 Mg PO BID Metoprolol Succinate 50 Mg Tab.er.24h 25 Mg PO DAILY Eliquis (Apixaban) 5 Mg Tablet 5 Mg PO BID Reported Hydrocodone-Acetamin 5-325 mg (Hydrocodone/Acetaminophen) 5 Mg-325 Mg Tablet 1 Tab PO BID PRN Pramipexole Dihydrochloride (Pramipexole Di-HCl) 0.5 Mg Tablet 0.5 Mg PO HS Quetiapine Fumarate 400 Mg Tablet 400 Mg PO HS Duloxetine HCl 30 Mg Capsule.dr 30 Mg PO DAILY Imodium A-D (Loperamide HCl) 1 Mg/7.5 Ml Liquid 1 Mg PO Q4H PRN Assessment/Pt DC Instructions Follow up with primary doctor after leaving [facility]. Discharge Diet: Cardiac Diet Activity as Tolerated: Yes Discharge Physical Examination Allergies: Coded Allergies: cephalexin (Verified Allergy, Severe, Has received ceftriaxone in the past w/o issue, 11/29/21) General Appearance: No Apparent Distress Respiratory: No Respiratory Distress Skin: Normal Color Neurologic/Psychiatric: Alert, Normal Mood/Affect VICKI VICENTE MD Dec 03, 2021 11:17
== END 2021-12-03 11:40 | disposition short-term general hospital (02) | DRG 871 ==
LOC: EDUNIT# 18:09 → ER FS 18:10 → ICU 22:21 → 4TH 12-01 16:12
PROVIDERS: ADMIT Internal Medicine; ATTEND Family Medicine
PROC: 5A09357 Assistance with Respiratory Ventilation, Less than 24 Consecutive Hours, Continuous Positive Airway Pressure (ICD-10-PCS; 2021-11-27)
PROC: 5A2204Z Restoration of Cardiac Rhythm, Single (ICD-10-PCS; principal; 2021-11-30)
PROC: 5A0945A Assistance with Respiratory Ventilation, 24-96 Consecutive Hours, High Flow/Velocity Cannula (ICD-10-PCS; 2021-11-30)
DX: A41.51 Sepsis due to Escherichia coli [E. coli] (principal); J18.9 Pneumonia, unspecified organism; J96.21 Acute and chronic respiratory failure with hypoxia; F10.239 Alcohol dependence with withdrawal, unspecified; N17.9 Acute kidney failure, unspecified; J44.0 Chronic obstructive pulmonary disease with (acute) lower respiratory infection; E87.2 Acidosis; I48.19 Other persistent atrial fibrillation; A41.2 Sepsis due to unspecified staphylococcus; Z79.01 Long term (current) use of anticoagulants; I10 Essential (primary) hypertension; F31.9 Bipolar disorder, unspecified; E83.42 Hypomagnesemia; F17.210 Nicotine dependence, cigarettes, uncomplicated; E78.00 Pure hypercholesterolemia, unspecified; E87.6 Hypokalemia; I48.0 Paroxysmal atrial fibrillation; R53.83 Other fatigue; R65.20 Severe sepsis without septic shock; I35.0 Nonrheumatic aortic (valve) stenosis; R07.9 Chest pain, unspecified; E66.01 Morbid (severe) obesity due to excess calories; Z68.39 Body mass index [BMI] 39.0-39.9, adult; Z20.822 Contact with and (suspected) exposure to COVID-19
CPT/HCPCS: 36415; 71045; 71046; 71275; 80053; 80061; 80202; 80320; 82805; 82947; 83605; 83735; 83880; 84100; 84132; 84145; 84443; 84484; 85007; 85025; 85027; 85379; 85610; 85730; 87040; 87077; 87186; 87636; 87804; 93005; 93041; 93306; 94640; 94660; 94760; 94761; 96361; 96365; 96366; 96367; 96372; 96375; Q9967

== ENCOUNTER 2021-12-04 06:45 | Inpatient (IN) | payer MEDICAID ==
[~2021-12-04] VITALS: Ht 165.1 cm; Wt 103.0 kg
[~2021-12-04 06:45] MED LIST changes: +ACHD5005 PO; +DULO30CA49 PO; +FLEC100T PO; +METO50TA7 PO; +QUET400T13 PO
--- NOTE | 2021-12-04 08:00 | History & Physical-Hospitalist ---
History of Present Illness HPI/Chief Complaint Chief complaint: Pneumonia with acute respiratory failure History of present illness: This is a 61-year-old female who was transferred from [facility] due to shortness of breath 1 day after discharge from a complicated ICU course which included A. fib with RVR status post cardioversion and pneumonia with bacteremia and alcohol withdrawal. She had been discharged to a [facility] for alcohol rehab when she began having shortness of breath so was brought to [facility] found to have significant pneumon ia and due to cardiac risk factors she was transferred to higher level care. Currently she is feeling much better. Source: patient Exam Limitations: no limitations Date Seen 12/04/21 Time Seen by a Provider: 11:30 Attending Physician Lida Storm MD PCP Admitting Physician: Hillary Rawls DO Attending Physician: Hillary Rawls DO Referring Physician Date of Admission Home Medications & Allergies Home Medications Reviewed patient Home Medication Reconciliation performed by pharmacy medication reconciliations general service technician and/or nursing. Patients Allergies have been reviewed. Allergies Allergies Coded Allergies cephalexin (Verified Allergy, Severe, Has received ceftriaxone in the past w/o issue, 11/29/21) Past Ewbmuth-Zpafwq-Ndgcpg Hx Patient Social History Marrital Status: single Employed/Student: unemployed Smoking Status: Former Smoker Alcohol Use?: Yes Immunizations Up To Date Date of Influenza Vaccine: Apr 12, 2021 First/Initial COVID19 Vaccinat: Moderna Current Status Primary Language: Congolese Past Medical History Surgeries: Abdominal, Appendectomy, Gallbladder COPD Atrial Fibrillation, High Cholesterol, Hypertension Bipolar Family Medical History No Pertinent Family Hx Review of Systems Constitutional: see HPI, malaise, weakness EENTM: no symptoms reported Respiratory: cough, dyspnea on exertion Cardiovascular: no symptoms reported Gastrointestinal: no symptoms reported Genitourinary: no symptoms reported Musculoskeletal: no symptoms reported Skin: no symptoms reported Psychiatric/Neurological: No Symptoms Reported All Other Systems Reviewed Negative Unless Noted: Yes Physical Exam Physical Exam Vital Signs Vital Signs - First Documented 12/04/21 12/04/21 12/04/21 10:53 11:00 12:00 Temp 36.3 Pulse 89 Resp 15 B/P (MAP) 154/93 (113) Pulse Ox 94 O2 Delivery Nasal Cannula O2 Flow Rate 5.00 Capillary Refill : Height, Weight, BMI Height: '" Weight: lbs. oz. kg; 39.63 BMI Method: General Appearance: No Apparent Distress, Chronically ill Eyes: Right Eye Normal Inspection, Right Eye PERRL HEENT: PERRL/EOMI, Normal ENT Inspection, Pharynx Normal, Moist Mucous Membranes Neck: Full Range of Motion, Normal Inspection, Non Tender Respiratory: Chest Non Tender, No Accessory Muscle Use, No Respiratory Distress, Crackles, Decreased Breath Sounds Cardiovascular: Regular Rate, Rhythm, No Edema, No Gallop, No JVD, No Murmur, Normal Peripheral Pulses Gastrointestinal: Normal Bowel Sounds, No Organomegaly, No Pulsatile Mass, Non Tender, Soft Back: Normal Inspection, No CVA Tenderness, No Vertebral Tenderness Extremity: Normal Capillary Refill, Normal Inspection, Normal Range of Motion, Non Tender, No Calf Tenderness, No Pedal Edema Neurologic/Psychiatric: Alert, Oriented x3, No Motor/Sensory Deficits, Normal Mood/Affect Skin: Normal Color, Warm/Dry Lymphatic: No Adenopathy Results Results/Procedures Labs Laboratory Tests 12/04/21 11:12 12/05/21 05:23 Patient resulted labs reviewed. Assessment/Plan Admission Diagnosis Assessment: Pneumonia Hypoxia History of A. fib with RVR status post cardioversion last week Alcohol withdrawal hospital course last week Recent E. coli bacteremia Plan: IV antibiotics Supportive care Admission Status: Inpatient Order (span 2 midnights) Reason for Inpatient Admission: Pneumonia with A. fib HILLARY RAWLS DO Dec 04, 2021 08:00
[2021-12-04] MEDS ORDERED: CALCIUM CARBONATE 500 MG (TUMS) TAB.CHEW PO PRN (10:45)
[2021-12-04] MEDS ORDERED: polyethylene glycoL POWDER 17 GM (MIRALAX) PACK PO PRN ×2 (10:45→11:45)
[2021-12-04] MEDS ORDERED: diphenhydrAMINE 50 MG/ML INJ (BENADRYL) IVP PRN (10:45)
[2021-12-04] MEDS ORDERED: MILK OF MAGNESIA 400 MG/5 ML 30 ML UDC PO PRN (10:45)
[2021-12-04] MEDS ORDERED: BISACODYL 10 MG SUPP (DULCOLAX) PR PRN ×2 (10:45→11:45)
[2021-12-04] MEDS ORDERED: ONDANSETRON 4 MG/2 ML (SDV) Z0FRAN IV PRN (10:45)
[2021-12-04] MEDS ORDERED: ANTACID SUSP 30 ML UDC (MYLANTA) PO PRN ×2 (10:45→11:45)
[2021-12-04] MEDS ORDERED: ONDANSETRON 4 MG (ZOFRAN) ORAL DISSOLVE TAB PO PRN ×2 (10:45→11:45)
[2021-12-04] MEDS ORDERED: LACTULOSE SYRUP 10GM/15ML (ENULOSE) 30ML UDC PO PRN (10:45)
[2021-12-04] MEDS ORDERED: diphenhydrAMINE 25 MG TAB (BENADRYL) PO PRN (10:45)
[2021-12-04] MEDS ORDERED: VANCOMYCIN INJECTION 0.1 MG in NS (IVPB) 250 ML IV SCH (10:45)
[2021-12-04 11:25] LABS: BASOPHILS # (AUTO) 0.1 10^3/uL (0.0-0.1); BASOPHILS % (AUTO) 0 % (0-10); EOSINOPHILS % (AUTO) 0 % (0-10); HEMATOCRIT 26 % (35-52); HEMOGLOBIN 7.9 g/dL (11.5-16.0); LYMPHOCYTES # (AUTO) 1.4 10^3/uL (1.0-4.0); LYMPHOCYTES % (AUTO) 11 % (12-44); MEAN CORPUSCULAR HEMOGLOBIN 32 pg (25-34); MEAN CORPUSCULAR HGB CONC 31 g/dL (32-36); MEAN CORPUSCULAR VOLUME 102 fL (80-99); MEAN PLATELET VOLUME 10.5 fL (9.0-12.2); MONOCYTES # (AUTO) 0.6 10^3/uL (0.0-1.0); MONOCYTES % (AUTO) 5 % (0-12); NEUTROPHILS # (AUTO) 10.2 10^3/uL (1.8-7.8); NEUTROPHILS % (AUTO) 82 % (42-75); PLATELET COUNT 204 10^3/uL (130-400); WHITE BLOOD COUNT 12.5 10^3/uL (4.3-11.0)
--- NOTE | 2021-12-04 11:30 | Physical Therapy Evaluation ---
PT Evaluation-General Medical Diagnosis Admission Date Dec 04, 2021 at 10:12 Medical Diagnosis: sepsis, pneumonia Onset Date: Nov 25, 2021 Therapy Diagnosis Therapy Diagnosis: weakness Precautions Precautions/Isolations: Fall Prevention, Standard Precautions Weight Bear Status Right Lower Extremity: Right Full Weight Bearing Left Lower Extremity: Left Full Weight Bearing Referral Physician: Curly Reason for Referral: Evaluation/Treatment Medical History Pertinent Medical History: Atrial Fib, Alcoholism, COPD, HTN Additional Medical History abdominal Sx, high cholesterol, bipolar Current History Pt admitted on 11/25/ due to weakness, SOA. Just discharged yesterday to [facility]. Back to ER this morning due to SOA. Reviewed History: Yes Social History Home: Apartment Current Living Status: Alone Entry Into Home: Level Entry Prior Prior Level of Function SCALE: Activities may be completed with or without assistive devices. 2-Fbckvzrkun-nfxabpi completes the activity by him/herself with no assistance from a helper. 5-Set-up or Clean-up Assistance-helper sets up or cleans up; patient completes activity. [place] assists only prior to or following the activity. 4-Supervision or Touching Assistance-helper provides verbal cues and/or touching/steadying and/or contact guard assistance as patient completes activity. Assistance may be provided throughout the activity or intermittently. 3-Partial/Moderate Assistance-helper does LESS THAN HALF the effort. [place] lifts, holds or supports trunk or limbs, but provides less than half the effort. 2-Substantial/Maximal Assistance-helper does MORE THAN HALF the effort. [place] lifts or holds trunk or limbs and provides more than half the effort. 4-Dcrkkdpan-hvwmtc does ALL the effort. Patient does none of the effort to complete the activity. Or, the assistance of 2 or more helpers is required for the patient to complete the activity. If activity was not attempted, code reason: 7-Patient Refused. 9-Not Applicable-not attempted and the patient did not perform the activity before the current illness, exacerbation or injury. 10-Not Attempted due to Environmental Limitations-(lack of equipment, weather restraints, etc.). 88-Not Attempted due to Medical Conditions or Safety Concerns. Bed Mobility: 6 Transfers (B,C,W/C): 6 Gait: 6 Stairs: 9 Indoor Mobility (Ambulation): Independent Stairs: Not Applicalbe Prior Devices Use: None Prior Device Use: Pt did admit to furniture/wall walking PT Evaluation-Current Subjective Pt in bed, agreeable. Reports she continues to feel significant SOA. Pt reports she felt "pretty normal" walking yesterday and this AM. Pain Numeric Pain Scale: 0-No Pain Pt/Family Goals Home Objective Patient Orientation: Person, Place, Time, Situation Attachments: Oxygen Multiple monitor lines ROM/Strength ROM Upper Extremities See OT ROM Lower Extremities WFL Strength Upper Extremities See OT Strength Lower Extremities grossly WFL Integumentary/Posture Integumentary See nurses' notes Posture grossly WFL, forward head Sensory Vision: Functional Hearing: Functional Transfers Roll Left to Right (QC): 6 Sit to Lying (QC): 6 Lying to Sitting/Side of Bed(Q: 6 Sit to Stand (QC): 6 Gait Does the Patient Walk?: Yes Mode of Locomotion: Walk Anticipated Mode of Locomotion: Walk Walk 10 feet (QC): 10 Walk 50 ft with 2 Turns(QC): 10 Walk 150 ft (QC): 10 Gait Assistive Device: FWW Comments/Gait Description Pt stood and marched at EOB with SBA-mod (I) due to limited range on monitors, O2 this date. Pt sats remained >92% but increased SOB Wheelchair Training Does the Pt Use a Wheelchair?: No Type of Wheelchair: N/A Balance Sitting Static: Normal Sitting Dynamic: Normal Standing Static: Good Standing Dynamic: Good Treatment Eval. Returned to bed with O2 in situ Assessment/Needs Pt near PLOF for functional mobility per her report. Pt would benefit from short term skilled PT to improve functional activity tolerance and (I) with functional mobility for safe return home. Rehab Potential: Good PT [employer] Goals [facility] Goals PT [employer] Goals Time Frame: Dec 11, 2021 Roll Left & Right (QC): 6 Sit to Lying (QC): 6 Lying-Sitting on Side/Bed(QC): 6 Sit to Stand (QC): 6 Chair/Cyy-ls-Qxlxd Xfer(QC): 6 Toilet Transfer (QC): 6 Car Transfer (QC): 6 Does the Patient Walk: Yes Walk 10 feet (QC): 6 Walk 50ft with 2 Turns (QC): 6 Walk 150 ft (QC): 6 Walking 10ft on Uneven Surface: 6 1 Step (curb) (QC): 6 4 Steps (QC): 9 12 Steps (QC): 9 Picking up an Object (QC): 6 Does the Pt use WC or Scooter?: No Wheel 50 feet with 2 turns (QC: 9 Wheel 150 feet: 9 Type: N/A (9) LTGs established to allow safe (I) return home. PT Plan Problem List Problem List: Activity Tolerance, Functional Strength, Safety, Balance, Gait, Transfer Treatment/Plan Treatment Plan: Continue Plan of Care Treatment Plan: Education, Functional Activity Tian, Functional Strength, Gait, Safety, Therapeutic Exercise, Transfers Treatment Duration: Dec 11, 2021 Frequency: 6 times per week Estimated Hrs Per Day: .25 hour per day Patient and/or Family Agrees t: Yes Safety Risks/Education Teaching Recipient: Patient Teaching Methods: Discussion Response to Teaching: Verbalize Understanding PT POC Discharge Recommendations Therapy Discharge Recommendati: Home & Family Time/GCodes Time In: 1059 Time Out: 1122 Total Billed Treatment Time: 23 Total Billed Treatment 1, EVMODC x 23' SAYRA CAMERON DPMegan Dec 04, 2021 11:30
[2021-12-04 11:42] LABS: ALBUMIN 2.6 GM/DL (3.2-4.5); BILIRUBIN,TOTAL 1.1 MG/DL (0.1-1.0); CALCIUM 8.2 MG/DL (8.5-10.1); CREATININE SERUM 0.68 MG/DL (0.60-1.30); POTASSIUM 3.8 MMOL/L (3.6-5.0); TOTAL PROTEIN 5.5 GM/DL (6.4-8.2)
[2021-12-04] MEDS ORDERED: guaiFENesin SYRUP 100 MG/5 ML 10 ML (ROBITUSSIN SF) PO PRN (11:45)
[2021-12-04] MEDS ORDERED: ACETAMINOPHEN 325 MG TABLET PO PRN (11:45)
[2021-12-04] MEDS ORDERED: morphine INJ 4 MG/ML 1 ML (VIAL/SYRINGE) IV PRN (11:45)
[2021-12-04] MEDS ORDERED: CATHETER FLUSH 10 ML SYR IVP PRN (11:45)
[2021-12-04] MEDS ORDERED: MELATONIN 3 MG TABLET PO PRN (11:45)
[2021-12-04 12:00] VITALS: BP 154/93
[2021-12-04] MEDS ORDERED: PIPERACILLIN SODIUM/TAZOBACTAM 4.5 GM in NS (IVPB) 100 ML IV NR (12:00)
[2021-12-04] MEDS ORDERED: SENNA W/DOCUSATE (SENOKOT S) TABLET PO ONE ×2 (12:30→14:45)
[2021-12-04] MEDS ORDERED: LACTULOSE SYRUP 10GM/15ML (ENULOSE) 30ML UDC PO ONE ×2 (12:30→14:45)
[2021-12-04] MEDS ORDERED: BISACODYL 10 MG SUPP (DULCOLAX) PR ONE (12:30)
[2021-12-04] MEDS ORDERED: VANCOMYCIN 2000 MG/NS 500 ML IVPB IV ONE ×2 (13:00)
[2021-12-04] MEDS: morphine INJ 4 MG/ML 1 ML (VIAL/SYRINGE) IV PRN (14:43)
[2021-12-04] MEDS: RT-ALBUTEROL SULF 2.5 MG/3 ML PRE-MIX VIAL INH SCH ×2 (14:58→18:52)
[2021-12-04 15:44] VITALS: BP 156/87
--- NOTE | 2021-12-04 16:07 | Consultation-Cardiology ---
HPI-Cardiology Cardiology Consultation Date of Consultation 12/04/21 Date of Admission Time Seen by Provider: 16:02 Indication: Shortness of breath HPI 61-year-old lady with paroxysmal atrial fibrillation, was discharged yesterday from the hospital. Patient reported that she started to have increasing shortness of breath. Loss of energy. Fatigue. Return to the emergency room for evaluation she was admitted. On my evaluation she was laying down in bed, reporting improvement in her symptoms. Reporting that she is feeling better. Home Medications & Allergies Allergies: Coded Allergies: cephalexin (Verified Allergy, Severe, Has received ceftriaxone in the past w/o issue, 11/29/21) Home Medication List Reviewed: Yes [id number] Hx Patient Social History Marital Status: Employed/Student: retired Have you traveled recently?: No Alcohol Use?: Yes Immunizations Up To Date Date of Influenza Vaccine: Apr 12, 2021 Past Medical History Discussed below Family Medical History Significant Family History: No Pertinent Family Hx Family Medical Hx Noncontributory Review of Systems-General Review of Systems Constitutional: no symptoms reported, see HPI, malaise, weakness EENTM: see HPI, no symptoms reported Respiratory: see HPI; No cough; dyspnea on exertion; No hemoptysis, No orthopnea, No phlegm; short of breath; No stridor, No wheezing, No other Cardiovascular: see HPI; No chest pain; edema; No Hx of Intervention, No palpitations, No syncope, No vascular heart diseas, No other Gastrointestinal: no symptoms reported, see HPI Genitourinary: no symptoms reported, see HPI Musculoskeletal: no symptoms reported, see HPI Skin: no symptoms reported, see HPI Psychiatric/Neurological: No Symptoms Reported, See HPI Reviewed Test Results Reviewed Test Results Lab Laboratory Tests Test 12/04/21 11:12 Range/Units White Blood Count 12.5 H 4.3-11.0 10^3/uL Red Blood Count 2.50 L 3.80-5.11 10^6/uL Hemoglobin 7.9 L 11.5-16.0 g/dL Hematocrit 26 L 35-52 % Mean Corpuscular Volume 102 H 80-99 fL Mean Corpuscular Hemoglobin 32 25-34 pg Mean Corpuscular Hemoglobin Concent 31 L 32-36 g/dL Red Cell Distribution Width 15.7 H 10.0-14.5 % Platelet Count 204 130-400 10^3/uL Mean Platelet Volume 10.5 9.0-12.2 fL Immature Granulocyte % (Auto) 1 % Neutrophils (%) (Auto) 82 H 42-75 % Lymphocytes (%) (Auto) 11 L 12-44 % Monocytes (%) (Auto) 5 0-12 % Eosinophils (%) (Auto) 0 0-10 % Basophils (%) (Auto) 0 0-10 % Neutrophils # (Auto) 10.2 H 1.8-7.8 10^3/uL Lymphocytes # (Auto) 1.4 1.0-4.0 10^3/uL Monocytes # (Auto) 0.6 0.0-1.0 10^3/uL Eosinophils # (Auto) 0.0 0.0-0.3 10^3/uL Basophils # (Auto) 0.1 0.0-0.1 10^3/uL Immature Granulocyte # (Auto) 0.2 H 0.0-0.1 10^3/uL Sodium Level 138 135-145 MMOL/L Potassium Level 3.8 3.6-5.0 MMOL/L Chloride Level 98 98-107 MMOL/L Carbon Dioxide Level 26 21-32 MMOL/L Anion Gap 14 5-14 MMOL/L Blood Urea Nitrogen 5 L 7-18 MG/DL Creatinine 0.68 0.60-1.30 MG/DL Estimat Glomerular Filtration Rate 98 BUN/Creatinine Ratio 7 Glucose Level 89 70-105 MG/DL Calcium Level 8.2 L 8.5-10.1 MG/DL Corrected Calcium 9.3 8.5-10.1 MG/DL Total Bilirubin 1.1 H 0.1-1.0 MG/DL Aspartate Amino Transf (AST/SGOT) 34 5-34 U/L Alanine Aminotransferase (ALT/SGPT) 20 0-55 U/L Alkaline Phosphatase 85 40-136 U/L Total Protein 5.5 L 6.4-8.2 GM/DL Albumin 2.6 L 3.2-4.5 GM/DL Physical Exam Physical Exam Vital Signs Vital Signs - First Documented 12/04/21 12/04/21 12/04/21 10:53 11:00 12:00 Temp 36.3 Pulse 89 Resp 15 B/P (MAP) 154/93 (113) Pulse Ox 94 O2 Delivery Nasal Cannula O2 Flow Rate 5.00 Capillary Refill : Height, Weight, BMI Height: '" Weight: lbs. oz. kg; 38.30 BMI Method: General Appearance: No Apparent Distress, WD/WN Eyes: Bilateral Eye Normal Inspection, Bilateral Eye PERRL, Bilateral Eye EOMI HEENT: PERRL/EOMI, TMs Normal, Normal ENT Inspection, Pharynx Normal, Moist Mucous Membranes Neck: Full Range of Motion, Normal Inspection, Non Tender, Supple, Carotid Bruit Respiratory: Chest Non Tender, Normal Breath Sounds, No Accessory Muscle Use, No Respiratory Distress Cardiovascular: Regular Rate, Rhythm, No Edema, No Gallop, No JVD, No Murmur, Normal Peripheral Pulses Gastrointestinal: Normal Bowel Sounds, No Organomegaly, No Pulsatile Mass, Non Tender, Soft Back: Normal Inspection, No CVA Tenderness, No Vertebral Tenderness Extremity: Normal Capillary Refill, Normal Inspection, Normal Range of Motion, Non Tender, No Calf Tenderness, No Pedal Edema Neurologic/Psychiatric: Alert, Oriented x3, No Motor/Sensory Deficits, Normal Mood/Affect Skin: Normal Color, Warm/Dry Lymphatic: No Adenopathy A/P-Cardiology Admission Diagnosis Shortness of breath Pneumonia Paroxysmal atrial fibrillation Hypertension Assessment/Plan Shortness of breath, worsening recently, increasing dyspnea. Patient was admitted to stepdown unit and started on antibiotic and diuretics. Pneumonia, started on piperacillin. Managed by medical team. Paroxysmal atrial fibrillation, underwent cardioversion on November 30, 2021. Maintained on flecainide and Eliquis. Continue to monitor [id number] score 2, maintained on Eliquis. Mild aortic valve stenosis. Has been followed by Dr. Biggs. Continue to monitor Chest pain nonspecific etiology, reporting improvement, no chest pain was reported at this point. Hypertension, controlled, restart home medication monitor History of alcoholism. Obesity, BMI 38, we discussed weight loss MISBAH RIVERA MD Dec 04, 2021 16:07
[2021-12-04 16:43] VITALS: BP 150/70
[2021-12-04] MEDS ORDERED: RIVAROXABAN 20 MG TABLET (XARELTO) PO SCH (17:00)
[2021-12-04] MEDS: PIPERACILLIN SODIUM/TAZOBACTAM 4.5 GM in NS (IVPB) 100 ML IV SCH (17:46)
[2021-12-04 19:18] VITALS: BP 143/72
[2021-12-04] MEDS ORDERED: DIAZEPAM INJ 10 MG/2 ML (VALIUM) SYR ONE (20:07)
[2021-12-04] MEDS: SENNA W/DOCUSATE (SENOKOT S) TABLET PO SCH (20:12)
[2021-12-04] MEDS: PRAMIPEXOLE 0.5 MG TAB (MIRAPEX) PO SCH (20:12)
[2021-12-04] MEDS: QUEtiapine 200 MG (SEROquel) TAB IMMEDIATE RELEASE PO SCH (20:12)
[2021-12-04] MEDS: SENNOSIDES 8.6 MG (SENOKOT) TAB PO SCH (20:12)
[2021-12-04] MEDS: DOCUSATE SODIUM 100 MG (COLACE) CAP PO SCH (20:12)
[2021-12-04] MEDS: FLECAINIDE 100 MG (TAMBOCOR) TAB PO SCH (20:13)
[2021-12-04] MEDS: DIAZEPAM INJ 10 MG/2 ML (VALIUM) SYR IVP PRN (20:15)
[2021-12-04] MEDS: LACTULOSE SYRUP 10GM/15ML (ENULOSE) 30ML UDC PO SCH (20:17)
[2021-12-04] MEDS ORDERED: DOCUSATE SODIUM 100 MG (COLACE) CAP PO SCH (21:00)
[2021-12-04] MEDS: VANCOMYCIN 1 GM/NS 250 ML IVPB IV SCH ×2 (23:33)
[2021-12-05] MEDS: MELATONIN 3 MG TABLET PO PRN (00:24)
[2021-12-05] MEDS: morphine INJ 4 MG/ML 1 ML (VIAL/SYRINGE) IV PRN ×3 (00:24→19:37)
[2021-12-05] MEDS: PIPERACILLIN SODIUM/TAZOBACTAM 4.5 GM in NS (IVPB) 100 ML IV SCH ×3 (02:46→17:15)
[2021-12-05 04:56] VITALS: BP 143/85
[2021-12-05 05:40] LABS: BASOPHILS # (AUTO) 0.1 10^3/uL (0.0-0.1); BASOPHILS % (AUTO) 1 % (0-10); EOSINOPHILS % (AUTO) 0 % (0-10); HEMATOCRIT 24 % (35-52); HEMOGLOBIN 7.6 g/dL (11.5-16.0); LYMPHOCYTES # (AUTO) 1.5 10^3/uL (1.0-4.0); LYMPHOCYTES % (AUTO) 14 % (12-44); MEAN CORPUSCULAR HEMOGLOBIN 31 pg (25-34); MEAN CORPUSCULAR HGB CONC 32 g/dL (32-36); MEAN CORPUSCULAR VOLUME 99 fL (80-99); MEAN PLATELET VOLUME 9.9 fL (9.0-12.2); MONOCYTES # (AUTO) 0.7 10^3/uL (0.0-1.0); MONOCYTES % (AUTO) 7 % (0-12); NEUTROPHILS # (AUTO) 8.5 10^3/uL (1.8-7.8); NEUTROPHILS % (AUTO) 78 % (42-75); PLATELET COUNT 285 10^3/uL (130-400); WHITE BLOOD COUNT 10.9 10^3/uL (4.3-11.0)
[2021-12-05] MEDS: VANCOMYCIN 1 GM/NS 250 ML IVPB IV SCH ×6 (05:41→21:32)
[2021-12-05 05:56] LABS: ALBUMIN 2.7 GM/DL (3.2-4.5)
[2021-12-05 05:57] LABS: POTASSIUM 3.2 MMOL/L (3.6-5.0)
[2021-12-05 05:58] LABS: CALCIUM 8.2 MG/DL (8.5-10.1)
[2021-12-05 05:59] LABS: TOTAL PROTEIN 5.5 GM/DL (6.4-8.2)
[2021-12-05 06:01] LABS: BILIRUBIN,TOTAL 1.2 MG/DL (0.1-1.0)
[2021-12-05 06:02] LABS: CREATININE SERUM 0.71 MG/DL (0.60-1.30)
[2021-12-05] MEDS: MULTIVIT W/MINERALS TAB (THERAGRAN M) PO SCH (06:31)
--- NOTE | 2021-12-05 07:26 | Progress Note - Hospitalist ---
Subjective HPI/CC On Admission Date Seen by Provider: Dec 05, 2021 Time Seen by Provider: 11:00 Chief complaint: Pneumonia with acute respiratory failure History of present illness: This is a 61-year-old female who was transferred from [facility] due to shortness of breath 1 day after discharge from a complicated ICU course which included A. fib with RVR status post cardioversion and pneumonia with bacteremia and alcohol withdrawal. She had been discharged to a [facility] for alcohol rehab when she began having shortness of breath so was brought to [facility] found to have significant pneumonia and due to cardiac risk factors she was transferred to higher level care. Currently she is feeling much better. Subjective/Events-last exam Patient doing a lot better Coughing is an issue Shortness of breath is an issue Nebulizers, Advair, Singulair, IV steroids, Tessalon Perles will be added Review of Systems Pulmonary: Cough Objective Exam Vital Signs Vital Signs Date Time Temp Pulse Resp B/P (MAP) Pulse Ox O2 Delivery O2 Flow Rate FiO2 12/05/21 19:52 36.1 87 19 120/75 (90) 95 Nasal Cannula 5.00 Capillary Refill : General Appearance: No Apparent Distress, WD/WN, Chronically ill Respiratory: Lungs Clear, Normal Breath Sounds Cardiovascular: Regular Rate, Rhythm Results/Procedures Lab Laboratory Tests 12/05/21 05:23 Patient resulted labs reviewed. Assessment/Plan Assessment and Plan Assess & Plan/Chief Complaint Assessment: Pneumonia Hypoxia History of A. fib with RVR status post cardioversion last week Alcohol withdrawal hospital course last week Recent E. coli bacteremia Plan: IV antibiotics Supportive care BENY WHEELER DO Dec 05, 2021 07:26
[2021-12-05 08:03] VITALS: BP 138/65
[2021-12-05] MEDS: RT-ALBUTEROL SULF 2.5 MG/3 ML PRE-MIX VIAL INH SCH ×3 (09:02→21:00)
[2021-12-05] MEDS: SENNA W/DOCUSATE (SENOKOT S) TABLET PO SCH ×2 (09:07→20:17)
[2021-12-05] MEDS: guaiFENesin/DM (ROBITUSSIN DM) 10 ML UDC PO PRN ×2 (09:07→17:14)
[2021-12-05] MEDS: LACTULOSE SYRUP 10GM/15ML (ENULOSE) 30ML UDC PO SCH ×2 (09:07→20:16)
[2021-12-05] MEDS: FOLIC ACID 1 MG TAB PO SCH (09:07)
[2021-12-05] MEDS: KCL 20 MEQ TAB (K-DUR) PO SCH (09:08)
[2021-12-05] MEDS: DULoxetine 30 MG (CYMBALTA) CAP PO SCH (09:08)
[2021-12-05] MEDS: SENNOSIDES 8.6 MG (SENOKOT) TAB PO SCH ×2 (09:08→20:17)
[2021-12-05] MEDS: FLECAINIDE 100 MG (TAMBOCOR) TAB PO SCH ×2 (09:08→20:17)
[2021-12-05] MEDS: DOCUSATE SODIUM 100 MG (COLACE) CAP PO SCH ×2 (09:08→20:17)
[2021-12-05] MEDS: PANTOPRAZOLE 40 MG (PROTONIX) TAB PO SCH (09:08)
--- NOTE | 2021-12-05 11:25 | Cardiology Progress Note ---
Subjective Date Seen by Provider: Dec 05, 2021 Time Seen by Provider: 11:24 Subjective/Events-last exam Patient is laying down in bed, still having shortness of breath, maintained on oxygen. No chest pain Review of Systems General: No Chills, No Night Sweats; Fatigue; No Malaise, No Appetite, No Other HEENT: No Head Aches, No Visual Changes, No Eye Pain, No Ear Pain, No Dysphasia, No Sinus Congestion, No Post Nasal Drip, No Sore Throat, No Other Pulmonary: Dyspnea; No Cough, No Pleuritic Chest Pain, No Other Cardiovascular: No: Chest Pain, Palpitations, Orthopnea, Paroxysmal Noc. Dyspnea, Edema, Lt Headedness, Other Objective-Cardiology Exam Last Set of Vital Signs Vital Signs 12/05/21 12/05/21 08:03 09:09 Temp 36.4 Pulse 94 Resp 20 B/P (MAP) 138/65 (89) Pulse Ox 96 O2 Delivery Nasal Cannula O2 Flow Rate 5.00 I&O Intake and Output 12/05/21 00:00 Intake Total 1160 ml Balance 1160 ml Intake Oral 1160 ml # Voids 3 Daily Weight Change No General: Alert, Oriented X3, Cooperative HEENT: Atraumatic, PERRLA Neck: Supple, No JVD, No Thyromegaly Lungs: Normal Air Movement Heart: Regular Rate, Normal S1, Normal S2, No Murmurs Abdomen: Normal Bowel Sounds, Soft, No Tenderness, No Hepatosplenomegaly, No Masses Extremities: No Clubbing, No Cyanosis, No Edema, Normal Pulses, No Tenderness/Swelling Skin: No Rashes, No Breakdown, No Significant Lesion Neuro: Normal Gait, Normal Speech, Strength at 5/5 X4 Ext, Normal Tone, Sensation Intact Psych/Mental Status: Mental Status NL, Mood NL Results Lab Laboratory Tests 12/05/21 05:23 A/P-Cardiology Admission Diagnosis Shortness of breath Pneumonia Paroxysmal atrial fibrillation Hypertension Assessment/Plan Shortness of breath, worsening recently, increasing dyspnea. Patient was readmitted, receiving antibiotics and diuretics. I will repeat chest x-ray and evaluate BNP level Pneumonia, started on piperacillin and vancomycin. Managed by medical team. Paroxysmal atrial fibrillation, underwent cardioversion on November 30, 2021. Maintained on flecainide and Eliquis. Continue to monitor [id number] score 2, maintained on Eliquis. Mild aortic valve stenosis. Has been followed by Dr. Biggs. Continue to monitor Chest pain nonspecific etiology, reporting improvement, no chest pain was reported at this point. Hypertension, controlled, restart home medication monitor History of alcoholism. Obesity, BMI 38, we discussed weight loss MISBAH RIVERA MD Dec 05, 2021 11:25
[2021-12-05] MEDS ORDERED: FUROSEMIDE 40 MG/4 ML INJ (LASIX) IVP ONE (11:30)
[2021-12-05] MEDS ORDERED: ADVAIR HFA 115/21 MCG INHALER 8 GM IH SCH (11:30)
[2021-12-05 11:37] VITALS: BP 129/60
--- NOTE | 2021-12-05 12:02 | Diagnostic Imaging Report ---
INDICATION: Shortness of breath. COMPARISON: December 01, 2021. FINDINGS: There is persistent airspace consolidation present within the right lung, most suggestive of pneumonia. Some minimal discoid opacities within the mid left lung are stable. There is no large effusion evident or findings of a pneumothorax. The heart size is mildly prominent but the pulmonary vascularity appears appropriate. IMPRESSION: Persistent dense airspace consolidation at the right base suggesting a right base pneumonia. Dictated by: Dictated on workstation # [id number]
[2021-12-05] MEDS: methylPREDNISolone 40 MG/ML (Solu-MEDROL) VIAL IV SCH ×2 (12:55→17:14)
[2021-12-05] MEDS: BENZONATATE 100 MG (TESSALON) CAPSULE PO SCH ×2 (12:55→20:18)
[2021-12-05] MEDS: MONTELUKAST 10 MG (SINGULAIR) TAB PO SCH (12:57)
[2021-12-05 15:30] VITALS: BP 147/63
[2021-12-05 19:52] VITALS: BP 120/75
[2021-12-05] MEDS: QUEtiapine 200 MG (SEROquel) TAB IMMEDIATE RELEASE PO SCH (20:18)
[2021-12-05] MEDS: PRAMIPEXOLE 0.5 MG TAB (MIRAPEX) PO SCH (20:25)
[2021-12-05] MEDS ORDERED: TROUGH ORDER-PHARMACY XX NR (21:00)
[2021-12-05] MEDS: RT--FLUTICASONE/SALMETEROL 113-14 (AIRDUO RespiCLICK) IH SCH (21:00)
[2021-12-06] MEDS: methylPREDNISolone 40 MG/ML (Solu-MEDROL) VIAL IV SCH ×5 (00:42→23:28)
[2021-12-06 00:59] VITALS: BP 132/64
[2021-12-06] MEDS: PIPERACILLIN SODIUM/TAZOBACTAM 4.5 GM in NS (IVPB) 100 ML IV SCH ×3 (02:32→17:16)
[2021-12-06] MEDS: morphine INJ 4 MG/ML 1 ML (VIAL/SYRINGE) IV PRN ×3 (05:25→18:36)
[2021-12-06] MEDS: MULTIVIT W/MINERALS TAB (THERAGRAN M) PO SCH (06:05)
[2021-12-06] MEDS: KCL 20 MEQ TAB (K-DUR) PO SCH (06:05)
--- NOTE | 2021-12-06 06:09 | Progress Note - Hospitalist ---
Subjective HPI/CC On Admission Date Seen by Provider: Dec 06, 2021 Time Seen by Provider: 10:00 Chief complaint: Pneumonia with acute respiratory failure History of present illness: This is a 61-year-old female who was transferred from [facility] due to shortness of breath 1 day after discharge from a complicated ICU course which included A. fib with RVR status post cardioversion and pneumonia with bacteremia and alcohol withdrawal. She had been discharged to a [facility] for alcohol rehab when she began having shortness of breath so was brought to [facility] found to have significant pneumonia and due to cardiac risk factors she was transferred to higher level care. Currently she is feeling much better. Subjective/Events-last exam Patient doing a lot better Cough is improved Decreased wheezing Aggressive medication initiated to help with exacerbation of COPD and pneumonia Appreciate Dr. Biggs managing the atrial fibrillation status post cardioversion Hopefully discharge back to [facility] tomorrow Review of Systems General: Fatigue, Malaise Pulmonary: Dyspnea, Cough Objective Exam Vital Signs Vital Signs Date Time Temp Pulse Resp B/P (MAP) Pulse Ox O2 Delivery O2 Flow Rate FiO2 12/06/21 19:34 36.2 87 18 138/86 (103) 97 Nasal Cannula 5.00 Capillary Refill : General Appearance: No Apparent Distress, WD/WN, Chronically ill Respiratory: Lungs Clear, Normal Breath Sounds, Decreased Breath Sounds Cardiovascular: Regular Rate, Rhythm Neurologic/Psychiatric: Alert, Oriented x3, No Motor/Sensory Deficits, Normal Mood/Affect Results/Procedures Lab Laboratory Tests 12/06/21 05:56 Patient resulted labs reviewed. Assessment/Plan Assessment and Plan Assess & Plan/Chief Complaint Assessment: Pneumonia Hypoxia History of A. fib with RVR status post cardioversion last week Alcohol withdrawal hospital course last week Recent E. coli bacteremia Anemia Plan: IV antibiotics Supportive care Nebs O2 Singulair Steroids BENY WHEELER DO Dec 06, 2021 06:09
[2021-12-06 06:52] LABS: BASOPHILS % (AUTO) 0 % (0-10); EOSINOPHILS % (AUTO) 0 % (0-10); HEMATOCRIT 26 % (35-52); LYMPHOCYTES % (AUTO) 10 % (12-44); MEAN CORPUSCULAR HEMOGLOBIN 31 pg (25-34); MEAN CORPUSCULAR HGB CONC 31 g/dL (32-36); MEAN CORPUSCULAR VOLUME 99 fL (80-99); MEAN PLATELET VOLUME 10.2 fL (9.0-12.2); MONOCYTES # (AUTO) 0.3 10^3/uL (0.0-1.0); MONOCYTES % (AUTO) 3 % (0-12); NEUTROPHILS # (AUTO) 8.3 10^3/uL (1.8-7.8); NEUTROPHILS % (AUTO) 86 % (42-75); PLATELET COUNT 332 10^3/uL (130-400); WHITE BLOOD COUNT 9.6 10^3/uL (4.3-11.0)
[2021-12-06 06:56] LABS: POTASSIUM 3.5 MMOL/L (3.6-5.0)
[2021-12-06 06:57] LABS: CALCIUM 8.8 MG/DL (8.5-10.1)
[2021-12-06 06:58] LABS: TOTAL PROTEIN 6.1 GM/DL (6.4-8.2)
[2021-12-06 07:02] LABS: CREATININE SERUM 0.79 MG/DL (0.60-1.30)
[2021-12-06 07:04] LABS: MAGNESIUM 1.7 MG/DL (1.6-2.4)
[2021-12-06 07:53] VITALS: BP 149/72
[2021-12-06] MEDS: RT-ALBUTEROL SULF 2.5 MG/3 ML PRE-MIX VIAL INH SCH ×3 (07:54→21:31)
[2021-12-06] MEDS: RT--FLUTICASONE/SALMETEROL 113-14 (AIRDUO RespiCLICK) IH SCH ×2 (07:55→21:31)
--- NOTE | 2021-12-06 08:28 | Cardiology Progress Note ---
Progress Note-Cardiology Events since last exam Date Seen by Provider: Dec 06, 2021 Time Seen by Provider: 08:27 Events since last exam I am following her due to atrial fibrillation. She feels as though her ceferino thing has improved since admission. She feels like she might benefit from having a nebulizer when she is discharged. Her chest discomfort has essentially resolved. She denies palpitations, syncope, or ankle edema. Certain portions of this document may have been dictated utilizing voice recognition technology. Inherent to this technology, typographical and grammatical errors may exist. As much as I am diligent to identify and correct these mistakes, some errors may remain in the document. Vitals Last set of Vitals Signs Vital Signs 12/06/21 12/06/21 12/06/21 07:53 07:55 08:00 Temp 37.0 Pulse 81 Resp 19 B/P (MAP) 149/72 (97) Pulse Ox 95 O2 Delivery Nasal Cannula O2 Flow Rate 5.00 Labs Labs Laboratory Tests 12/06/21 05:56 Exam Vital Signs Vital Signs Date Time Temp Pulse Resp B/P (MAP) Pulse Ox O2 Delivery O2 Flow Rate FiO2 12/06/21 08:00 Nasal Cannula 5.00 12/06/21 07:55 95 12/06/21 07:53 37.0 81 19 149/72 (97) Physical Exam General: Alert. No acute distress. She is obese. Eye: No xanthelasma. HENT: Normocephalic. Neck: Jugular venous pressure does not appear elevated. Respiratory: Lungs are clear to auscultation. Respirations are non-labored. Breath sounds are equal. Symmetrical chest wall expansion. Cardiovascular: Normal rate. Regular rhythm. Distant S1/S2. 2/6 systolic ejection murmur. No gallop. No edema. Gastrointestinal: Soft. Normal bowel sounds. Skin: Warm. Dry. Neurologic: Alert and oriented to person, place, time. Cranial nerves 3-11 grossly intact. Psychiatric: Cooperative. Appropriate mood & affect. Labs Laboratory Tests Test 12/05/21 20:54 12/06/21 05:56 Range/Units Vancomycin Level Trough 25.5 *H 10.0-20.0 UG/ML White Blood Count 9.6 4.3-11.0 10^3/uL Red Blood Count 2.62 L 3.80-5.11 10^6/uL Hemoglobin 8.0 L 11.5-16.0 g/dL Hematocrit 26 L 35-52 % Mean Corpuscular Volume 99 80-99 fL Mean Corpuscular Hemoglobin 31 25-34 pg Mean Corpuscular Hemoglobin Concent 31 L 32-36 g/dL Red Cell Distribution Width 15.1 H 10.0-14.5 % Platelet Count 332 130-400 10^3/uL Mean Platelet Volume 10.2 9.0-12.2 fL Immature Granulocyte % (Auto) 1 % Neutrophils (%) (Auto) 86 H 42-75 % Lymphocytes (%) (Auto) 10 L 12-44 % Monocytes (%) (Auto) 3 0-12 % Eosinophils (%) (Auto) 0 0-10 % Basophils (%) (Auto) 0 0-10 % Neutrophils # (Auto) 8.3 H 1.8-7.8 10^3/uL Lymphocytes # (Auto) 1.0 1.0-4.0 10^3/uL Monocytes # (Auto) 0.3 0.0-1.0 10^3/uL Eosinophils # (Auto) 0.0 0.0-0.3 10^3/uL Basophils # (Auto) 0.0 0.0-0.1 10^3/uL Immature Granulocyte # (Auto) 0.1 0.0-0.1 10^3/uL Sodium Level 140 135-145 MMOL/L Potassium Level 3.5 L 3.6-5.0 MMOL/L Chloride Level 99 98-107 MMOL/L Carbon Dioxide Level 28 21-32 MMOL/L Anion Gap 13 5-14 MMOL/L Blood Urea Nitrogen 6 L 7-18 MG/DL Creatinine 0.79 0.60-1.30 MG/DL Estimat Glomerular Filtration Rate 85 BUN/Creatinine Ratio 8 Glucose Level 176 H 70-105 MG/DL Calcium Level 8.8 8.5-10.1 MG/DL Corrected Calcium 9.6 8.5-10.1 MG/DL Magnesium Level 1.7 1.6-2.4 MG/DL Total Bilirubin 1.0 0.1-1.0 MG/DL Aspartate Amino Transf (AST/SGOT) 17 5-34 U/L Alanine Aminotransferase (ALT/SGPT) 12 0-55 U/L Alkaline Phosphatase 89 40-136 U/L B-Type Natriuretic Peptide 756.8 H <100.0 PG/ML Total Protein 6.1 L 6.4-8.2 GM/DL Albumin 3.0 L 3.2-4.5 GM/DL Diagnosis/Problems Diagnosis/Problems (1) Persistent atrial fibrillation Assessment & Plan: No signs of recurrence on flecainide. She is on beta- tahir for rate control in the event she has recurrent atrial fibrillation. She had been on apixaban prior to discharge but has anemia. Her hemoglobin level has been stable. I will restart her apixaban but the anemia probably warrants evaluation. (2) Aortic stenosis Status: Chronic Assessment & Plan: This has been in a mild range and should not be causing symptoms but will need to be followed. (3) Primary hypertension Status: Chronic Assessment & Plan: Blood pressure has been reasonably controlled with present medication. (4) Anemia Assessment & Plan: Etiology unclear. Her hemoglobin was normal earlier in the year. Some of the anemia could be related to her alcohol abuse. However, she probably needs some additional evaluation of the anemia which I will leave up to the discretion of the hospitalist. Since her hemoglobin has been stable, I will restart her apixaban. (5) Acute on chronic respiratory failure with hypoxemia Assessment & Plan: Most likely due to pneumonia for which she is being treated. CONI LEWIS JR, MD Dec 06, 2021 08:28
[2021-12-06] MEDS: BENZONATATE 100 MG (TESSALON) CAPSULE PO SCH ×3 (08:47→20:38)
[2021-12-06] MEDS: VANCOMYCIN 1250 MG/NS 250 ML IVPB IV SCH ×4 (08:47→18:36)
[2021-12-06] MEDS: PANTOPRAZOLE 40 MG (PROTONIX) TAB PO SCH (08:48)
[2021-12-06] MEDS: FOLIC ACID 1 MG TAB PO SCH (08:48)
[2021-12-06] MEDS: MONTELUKAST 10 MG (SINGULAIR) TAB PO SCH (08:48)
[2021-12-06] MEDS: FLECAINIDE 100 MG (TAMBOCOR) TAB PO SCH ×2 (08:48→20:38)
[2021-12-06] MEDS: DULoxetine 30 MG (CYMBALTA) CAP PO SCH (08:49)
[2021-12-06] MEDS: SENNOSIDES 8.6 MG (SENOKOT) TAB PO SCH ×2 (08:49→21:53)
[2021-12-06] MEDS: SENNA W/DOCUSATE (SENOKOT S) TABLET PO SCH ×2 (08:49→21:53)
[2021-12-06] MEDS: LACTULOSE SYRUP 10GM/15ML (ENULOSE) 30ML UDC PO SCH ×2 (08:49→21:53)
[2021-12-06] MEDS: DOCUSATE SODIUM 100 MG (COLACE) CAP PO SCH ×2 (08:49→21:53)
[2021-12-06] MEDS ORDERED: AMT10T PO (09:43)
[2021-12-06] MEDS ORDERED: FLUO40CA PO (09:43)
[2021-12-06] MEDS ORDERED: METO50TA7 PO ×2 (09:43→09:44)
[2021-12-06] MEDS ORDERED: APIX5TAB PO (09:44)
[2021-12-06] MEDS ORDERED: ASCO250T55 PO (09:46)
[2021-12-06] MEDS ORDERED: MULT200T12 PO (09:46)
[2021-12-06] MEDS ORDERED: FERR-84 PO (09:47)
--- NOTE | 2021-12-06 11:12 | Physical Therapy Daily Note ---
PT Daily Note-Current Subjective Patient agrees to PT. Mental Status Patient Orientation: Normal For Age Attachments: Oxygen, IV Transfers SCALE: Activities may be completed with or without assistive devices. 8-Zqrgyznngc-ghdaxom completes the activity by him/herself with no assistance from a helper. 5-Set-up or Clean-up Assistance-helper sets up or cleans up; patient completes activity. [place] assists only prior to or following the activity. 4-Supervision or Touching Assistance-helper provides verbal cues and/or touching/steadying and/or contact guard assistance as patient completes activity. Assistance may be provided throughout the activity or intermittently. 3-Partial/Moderate Assistance-helper does LESS THAN HALF the effort. [place] lifts, holds or supports trunk or limbs, but provides less than half the effort. 2-Substantial/Maximal Assistance-helper does MORE THAN HALF the effort. [place] lifts or holds trunk or limbs and provides more than half the effort. 5-Ujcfsvunq-iodwaf does ALL the effort. Patient does none of the effort to complete the activity. Or, the assistance of 2 or more helpers is required for the patient to complete the activity. If activity was not attempted, code reason: 7-Patient Refused. 9-Not Applicable-not attempted and the patient did not perform the activity before the current illness, exacerbation or injury. 10-Not Attempted due to Environmental Limitations-(lack of equipment, weather restraints, etc.). 88-Not Attempted due to Medical Conditions or Safety Concerns. Lying to Sitting/Side of Bed(Q: 6 Sit to Stand (QC): 6 Chair/Bte-wj-Tdbug Xfer(QC): 6 Weight Bearing Right Lower Extremity: Right Full Weight Bearing Left Lower Extremity: Left Full Weight Bearing Gait Training Distance: 500' Walk 10 feet (QC): 6 Walk 50 ft with 2 Turns(QC): 6 Walk 150 ft (QC): 6 Gait Assistive Device: None safe and functional with no deviation Assessment Patient is currently at independent PLOF with all gross motor skills and does not require skilled PT at this time. PT to dismiss patient from services. Patient to ambulate PRN in hallway with O2 in place. PT Debone Supervisor Goals Debone Supervisor Goals PT Debone Supervisor Goals Time Frame: Dec 11, 2021 Roll Left & Right (QC): 6 Sit to Lying (QC): 6 Lying-Sitting on Side/Bed(QC): 6 Sit to Stand (QC): 6 Chair/Eks-yz-Jzkfv Xfer(QC): 6 Toilet Transfer (QC): 6 Car Transfer (QC): 6 Does the Patient Walk: Yes Walk 10 feet (QC): 6 Walk 50ft with 2 Turns (QC): 6 Walk 150 ft (QC): 6 Walking 10ft on Uneven Surface: 6 1 Step (curb) (QC): 6 4 Steps (QC): 9 12 Steps (QC): 9 Picking up an Object (QC): 6 Does the Pt use WC or Scooter?: No Wheel 50 feet with 2 turns (QC: 9 Wheel 150 feet: 9 Type: N/A (9) PT Plan Treatment/Plan Treatment Plan: Continue Plan of Care Treatment Plan: Education, Functional Activity Tian, Functional Strength, Gait, Safety, Therapeutic Exercise, Transfers Treatment Duration: Dec 11, 2021 Frequency: 6 times per week Estimated Hrs Per Day: .25 hour per day Patient and/or Family Agrees t: Yes Time/GCodes Time In: 1020 Time Out: 1033 Total Billed Treatment Time: 13 Total Billed Treatment 1 visit FA 13 min MAGDI LEIGH PT Dec 06, 2021 11:12
--- NOTE | 2021-12-06 11:27 | Occupational Therapy Eval ---
OT Evaluation-General/PLF Medical Diagnosis Admission Date Dec 04, 2021 at 10:12 Medical Diagnosis: sepsis, pneumonia Onset Date: Nov 25, 2021 Therapy Diagnosis Therapy Diagnosis: decreased ADL status Precautions Precautions/Isolations: Standard Precautions Referral Physician: Curly Becker Reason: Evaluation/Treatment Medical History Pertinent Medical History: Atrial Fib, Alcoholism, COPD, HTN Additional Medical History COPD, AFib, HTN, and Bipolar Current History tsf from [facility] d/t SOB and higher level of care one day after d/c from complicated ICU course of aFib with RVR. S/p cardioversion and PNA with bacterium and alcohol withdrawal. She was d/c'd to a ATC, began having SOB so brought to [facility], found significant PNA. Social History Home: Apartment Current Living Status: Alone Entry Into Home: Elevator ADL-Prior Level of Function SCALE: Activities may be completed with or without assistive devices. 6-Eljbhrkosx-tgfdcbe completes the activity by him/herself with no assistance from a helper. 5-Set-up or Clean-up Assistance-helper sets up or cleans up; patient completes activity. [place] assists only prior to or following the activity. 4-Supervision or Touching Assistance-helper provides verbal cues and/or touching/steadying and/or contact guard assistance as patient completes activity. Assistance may be provided throughout the activity or intermittently. 3-Partial/Moderate Assistance-helper does LESS THAN HALF the effort. [place] lifts, holds or supports trunk or limbs, but provides less than half the effort. 2-Substantial/Maximal Assistance-helper does MORE THAN HALF the effort. [place] lifts or holds trunk or limbs and provides more than half the effort. 6-Xmnsieueq-xbtxjw does ALL the effort. Patient does none of the effort to complete the activity. Or, the assistance of 2 or more helpers is required for the patient to complete the activity. If activity was not attempted, code reason: 7-Patient Refused. 9-Not Applicable-not attempted and the patient did not perform the activity before the current illness, exacerbation or injury. 10-Not Attempted due to Environmental Limitations-(lack of equipment, weather restraints, etc.). 88-Not Attempted due to Medical Conditions or Safety Concerns. ADL PLOF Comments Pt reports having some difficulty with ADLs at PLOF, but was IND. Pt does not use AE or AD and furniture/wall walks to get around. Self Care: Independent Functional Cognition: Independent OT Current Status Subjective Pt seated in recliner upon OT arrival, agreeable to eval/tx. Mental Status/Objective Patient Orientation: Person, Place, Situation Attachments: IV, Oxygen Current Upper Extremity ROM WFL Upper Extremity Sensation WFL Upper Extremity Strength grossly 3+/5 ADL-Treatment Eating (QC): 6 Oral Hygiene (QC): 6 Other Treatments Pt provided information about PLOF and home environment. Pt transferred sit <>stand, IND, and independently walked to bathroom without AD to complete oral hygiene and grooming tasks. Pt returned to recliner, no AD, IND. Pt educated on the purpose of OT tx, but politely declined as she feels that she is at her baseline. Per PT report, pt walked 500' with no AD. Post tx, pt left in recliner with call light in reach and all needs met. Education OT Patient Education: Progress toward Goal/Update tx plan, Purpose of tx/functional activities, Rehab process Teaching Recipient: Patient Teaching Methods: Discussion Response to Teaching: Verbalize Understanding OT Sawyer Cork Slabs Goals Sawyer Cork Slabs Goals 1=Demonstrate adherence to instructed precautions during ADL tasks. 2=Patient will verbalize/demonstrate understanding of assistive devices/anastasia fications for ADL. 3=Patient will improve strength/tolerance for activity to enable patient to perform ADL's. OT Education/Plan Problem List/Assessment Assessment: No Skilled OT Needs ID'd Pt demonstrated PLOF skills by completing oral hygiene, grooming, and functional mobility tasks independently. No need for skilled OT services at this time. Pt told to have staff notify OT if any further questions/concerns about self-care activities arise. Discharge Recommendations Plan/Recommendations: Discharge/Goals Met Treatment Plan/Plan of Care Patient would benefit from OT for education, treatment and training to promote independence in ADL's, mobility, safety and/or upper extremity function for ADL's. Plan of Care: ADL Retraining, Functional Mobility Treatment Duration: Dec 06, 2021 Frequency: 1 time per week (eval only) Estimated Hrs Per Day: .25 hour per day Rehab Potential: Good Time/GCodes Start Time: 11:07 Stop Time: 11:17 Total Time Billed (hr/min): 10 Billed Treatment Time 1, EVL (10') BENITO HERNANDEZ OT Dec 06, 2021 11:27
[2021-12-06 12:08] VITALS: BP 135/65
[2021-12-06 15:28] VITALS: BP 129/74
[2021-12-06] MEDS: DIAZEPAM INJ 10 MG/2 ML (VALIUM) SYR IVP PRN (18:35)
[2021-12-06 19:34] VITALS: BP 138/86
[2021-12-06] MEDS: QUEtiapine 200 MG (SEROquel) TAB IMMEDIATE RELEASE PO SCH (20:38)
[2021-12-06] MEDS: PRAMIPEXOLE 0.5 MG TAB (MIRAPEX) PO SCH (20:38)
[2021-12-06] MEDS ORDERED: PRAMIPEXOLE 0.5 MG TAB (MIRAPEX) PO SCH (21:00)
[2021-12-06] MEDS ORDERED: NON-FORMULARY MEDICATION 1 EA EA (Quetiapine Fumarate 400 MG) PO SCH (21:00)
[2021-12-06 23:23] VITALS: BP 120/76
[2021-12-07] VITALS (7 sets, daily range): BP systolic 120–147; BP diastolic 60–79
[2021-12-07] MEDS: morphine INJ 4 MG/ML 1 ML (VIAL/SYRINGE) IV PRN ×5 (01:46→21:05)
[2021-12-07] MEDS: PIPERACILLIN SODIUM/TAZOBACTAM 4.5 GM in NS (IVPB) 100 ML IV SCH ×3 (01:46→18:41)
--- NOTE | 2021-12-07 05:52 | Progress Note - Hospitalist ---
Subjective HPI/CC On Admission Date Seen by Provider: Dec 07, 2021 Time Seen by Provider: 09:00 Chief complaint: Pneumonia with acute respiratory failure History of present illness: This is a 61-year-old female who was transferred from [facility] due to shortness of breath 1 day after discharge from a complicated ICU course which included A. fib with RVR status post cardioversion and pneumonia with bacteremia and alcohol withdrawal. She had been discharged to a [facility] for alcohol rehab when she began having shortness of breath so was brought to [facility] found to have significant pneumonia and due to cardiac risk factors she was transferred to higher level care. Currently she is feeling much better. Subjective/Events-last exam Patient doing a lot better Hemoglobin 7.5 Iron studies along with B12 ordered pending results Dr. Smith will be consulted for scope Lungs remain stable Decreasing Solu-Medrol from every 6 to every 12 PT and OT Ambulating Review of Systems Pulmonary: Dyspnea, Cough Objective Exam Vital Signs Vital Signs Date Time Temp Pulse Resp B/P (MAP) Pulse Ox O2 Delivery O2 Flow Rate FiO2 12/07/21 20:26 36.3 82 18 144/64 (90) 92 Nasal Cannula 5.00 Capillary Refill : General Appearance: No Apparent Distress, WD/WN Respiratory: Chest Non Tender, Lungs Clear, Normal Breath Sounds, No Accessory Muscle Use, No Respiratory Distress, Decreased Breath Sounds Cardiovascular: Regular Rate, Rhythm Neurologic/Psychiatric: Alert, Oriented x3, No Motor/Sensory Deficits, 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 Assessment/Plan Assessment and Plan Assess & Plan/Chief Complaint Assessment: Pneumonia Hypoxia History of A. fib with RVR status post cardioversion last week Alcohol withdrawal hospital course last week Recent E. coli bacteremia Anemia Plan: IV antibiotics Supportive care Nebs O2 Singulair Steroids Dr Smith consult BENY WHEELER DO Dec 07, 2021 05:52
[2021-12-07 06:08] LABS: BASOPHILS % (AUTO) 0 % (0-10); EOSINOPHILS % (AUTO) 0 % (0-10); HEMATOCRIT 25 % (35-52); HEMOGLOBIN 7.5 g/dL (11.5-16.0); LYMPHOCYTES # (AUTO) 1.2 10^3/uL (1.0-4.0); LYMPHOCYTES % (AUTO) 9 % (12-44); MEAN CORPUSCULAR HEMOGLOBIN 31 pg (25-34); MEAN CORPUSCULAR HGB CONC 31 g/dL (32-36); MEAN CORPUSCULAR VOLUME 101 fL (80-99); MEAN PLATELET VOLUME 10.2 fL (9.0-12.2); MONOCYTES # (AUTO) 0.5 10^3/uL (0.0-1.0); MONOCYTES % (AUTO) 3 % (0-12); NEUTROPHILS # (AUTO) 11.9 10^3/uL (1.8-7.8); NEUTROPHILS % (AUTO) 87 % (42-75); PLATELET COUNT 393 10^3/uL (130-400); WHITE BLOOD COUNT 13.7 10^3/uL (4.3-11.0)
[2021-12-07] MEDS: MULTIVIT W/MINERALS TAB (THERAGRAN M) PO SCH (06:10)
[2021-12-07] MEDS: methylPREDNISolone 40 MG/ML (Solu-MEDROL) VIAL IV SCH ×2 (06:10→18:41)
[2021-12-07] MEDS: KCL 20 MEQ TAB (K-DUR) PO SCH (06:10)
[2021-12-07 06:11] LABS: ALBUMIN 3.1 GM/DL (3.2-4.5)
[2021-12-07 06:12] LABS: POTASSIUM 3.7 MMOL/L (3.6-5.0)
[2021-12-07 06:13] LABS: CALCIUM 8.9 MG/DL (8.5-10.1)
[2021-12-07 06:14] LABS: TOTAL PROTEIN 6.1 GM/DL (6.4-8.2)
[2021-12-07 06:16] LABS: BILIRUBIN,TOTAL 0.8 MG/DL (0.1-1.0)
[2021-12-07 06:18] LABS: CREATININE SERUM 1.56 MG/DL (0.60-1.30)
[2021-12-07 06:30] LABS: VANCOMYCIN,TROUGH 32.5 UG/ML (10.0-20.0)
[2021-12-07] MEDS: VANCOMYCIN 1250 MG/NS 250 ML IVPB IV SCH ×2 (06:35)
[2021-12-07] MEDS: RT-ALBUTEROL SULF 2.5 MG/3 ML PRE-MIX VIAL INH SCH ×2 (06:40→20:25)
[2021-12-07] MEDS: RT--FLUTICASONE/SALMETEROL 113-14 (AIRDUO RespiCLICK) IH SCH ×2 (06:40→20:25)
[2021-12-07] MEDS ORDERED: TROUGH ORDER-PHARMACY XX ONE (07:00)
[2021-12-07 07:20] LABS: NEUTROPHILS % (MANUAL) 94 %
[2021-12-07 07:21] LABS: ANISOCYTOSIS MODERATE; LYMPHOCYTES % (MANUAL) 4 %; MONOCYTES % (MANUAL) 2 %
--- NOTE | 2021-12-07 08:20 | Cardiology Progress Note ---
Progress Note-Cardiology Events since last exam Date Seen by Provider: Dec 07, 2021 Time Seen by Provider: 08:18 Events since last exam I am following her due to atrial fibrillation. She feels as though her ceferino thing is gradually improving. She denies chest discomfort, palpitations, syncope, or ankle edema. Certain portions of this document may have been dictated utilizing voice recognition technology. Inherent to this technology, typographical and grammatical errors may exist. As much as I am diligent to identify and correct these mistakes, some errors may remain in the document. Vitals Last set of Vitals Signs Vital Signs 12/07/21 12/07/21 07:35 08:53 Temp 36.3 Pulse 87 Resp 19 B/P (MAP) 147/79 (101) Pulse Ox 94 O2 Delivery Nasal Cannula O2 Flow Rate 5.00 Labs Labs Laboratory Tests 12/07/21 05:59 Exam Vital Signs Vital Signs Date Time Temp Pulse Resp B/P (MAP) Pulse Ox O2 Delivery O2 Flow Rate FiO2 12/07/21 08:53 94 Nasal Cannula 5.00 12/07/21 07:35 36.3 87 19 147/79 (101) Physical Exam General: Alert. No acute distress. She is obese. Eye: No xanthelasma. HENT: Normocephalic. Neck: Jugular venous pressure does not appear elevated. Respiratory: Lungs are clear to auscultation. Respirations are non-labored. Breath sounds are equal. Symmetrical chest wall expansion. Cardiovascular: Normal rate. Regular rhythm. 2/6 systolic ejection murmur. No gallop. No edema. Gastrointestinal: Soft. Normal bowel sounds. Skin: Warm. Dry. Neurologic: Alert and oriented to person, place, time. Cranial nerves 3-11 grossly intact. Psychiatric: Cooperative. Appropriate mood & affect. Labs Laboratory Tests Test 12/07/21 05:59 Range/Units White Blood Count 13.7 H 4.3-11.0 10^3/uL Red Blood Count 2.43 L 3.80-5.11 10^6/uL Hemoglobin 7.5 L 11.5-16.0 g/dL Hematocrit 25 L 35-52 % Mean Corpuscular Volume 101 H 80-99 fL Mean Corpuscular Hemoglobin 31 25-34 pg Mean Corpuscular Hemoglobin Concent 31 L 32-36 g/dL Red Cell Distribution Width 15.4 H 10.0-14.5 % Platelet Count 393 130-400 10^3/uL Mean Platelet Volume 10.2 9.0-12.2 fL Immature Granulocyte % (Auto) 1 % Neutrophils (%) (Auto) 87 H 42-75 % Lymphocytes (%) (Auto) 9 L 12-44 % Monocytes (%) (Auto) 3 0-12 % Eosinophils (%) (Auto) 0 0-10 % Basophils (%) (Auto) 0 0-10 % Neutrophils # (Auto) 11.9 H 1.8-7.8 10^3/uL Lymphocytes # (Auto) 1.2 1.0-4.0 10^3/uL Monocytes # (Auto) 0.5 0.0-1.0 10^3/uL Eosinophils # (Auto) 0.0 0.0-0.3 10^3/uL Basophils # (Auto) 0.0 0.0-0.1 10^3/uL Immature Granulocyte # (Auto) 0.1 0.0-0.1 10^3/uL Neutrophils % (Manual) 94 % Lymphocytes % (Manual) 4 % Monocytes % (Manual) 2 % Anisocytosis MODERATE Sodium Level 139 135-145 MMOL/L Potassium Level 3.7 3.6-5.0 MMOL/L Chloride Level 99 98-107 MMOL/L Carbon Dioxide Level 27 21-32 MMOL/L Anion Gap 13 5-14 MMOL/L Blood Urea Nitrogen 14 7-18 MG/DL Creatinine 1.56 H 0.60-1.30 MG/DL Estimat Glomerular Filtration Rate 37 BUN/Creatinine Ratio 9 Glucose Level 180 H 70-105 MG/DL Calcium Level 8.9 8.5-10.1 MG/DL Corrected Calcium 9.6 8.5-10.1 MG/DL Total Bilirubin 0.8 0.1-1.0 MG/DL Aspartate Amino Transf (AST/SGOT) 19 5-34 U/L Alanine Aminotransferase (ALT/SGPT) 14 0-55 U/L Alkaline Phosphatase 76 40-136 U/L Total Protein 6.1 L 6.4-8.2 GM/DL Albumin 3.1 L 3.2-4.5 GM/DL Vancomycin Level Trough 32.5 *H 10.0-20.0 UG/ML Diagnosis/Problems Diagnosis/Problems (1) Persistent atrial fibrillation Assessment & Plan: No signs of recurrence on flecainide. She is on beta- tahir for rate control in the event she has recurrent atrial fibrillation. She had been on apixaban prior to discharge but has anemia. Her hemoglobin level has been stable. I restarted her apixaban on 12/06. The hospitalist has ordered iron studies and stool Hemoccult. (2) Aortic stenosis Status: Chronic Assessment & Plan: This has been in a mild range and should not be causing symptoms but will need to be followed. (3) Primary hypertension Status: Chronic Assessment & Plan: Blood pressure has been reasonably controlled with present medication. (4) Acute kidney injury Assessment & Plan: Her creatinine went up over the past 24 hours. Exact etiology unclear. She is not receiving diuretic. This will need to be watched closely. (5) Anemia Assessment & Plan: Etiology unclear. Her hemoglobin was normal earlier in the month. Some of the anemia could be related to her alcohol abuse. However, she probably needs some additional evaluation of the anemia which I will leave up to the discretion of the hospitalist. Since her hemoglobin has been stable, I restarted her apixaban. The hospitalist has ordered iron studies and stool for Hemoccult. (6) Acute on chronic respiratory failure with hypoxemia Assessment & Plan: Most likely due to pneumonia for which she is being treated. CONI LEWIS JR, MD Dec 07, 2021 08:20
--- NOTE | 2021-12-07 08:46 | Diagnostic Imaging Report ---
EXAMINATION: Chest, 1 view. HISTORY: Pneumonia. COMPARISON: 11/27/2021. FINDINGS: No significant change in the bilateral airspace opacities, consistent with pneumonia. No pneumothorax. There may be a tiny right effusion. The heart size is normal. IMPRESSION: Stable moderate bilateral airspace opacities, consistent with pneumonia. Dictated by: Dictated on workstation # [id number]
[2021-12-07] MEDS ORDERED: BISACODYL 10 MG SUPP (DULCOLAX) PR ONE (09:00)
[2021-12-07] MEDS ORDERED: DULoxetine 30 MG (CYMBALTA) CAP PO SCH (09:00)
[2021-12-07] MEDS ORDERED: APIXABAN 5 MG (ELIQUIS) TABLET PO SCH (09:00)
[2021-12-07] MEDS ORDERED: LACTULOSE SYRUP 10GM/15ML (ENULOSE) 30ML UDC PO ONE (09:00)
[2021-12-07] MEDS ORDERED: SENNA W/DOCUSATE (SENOKOT S) TABLET PO ONE (09:00)
[2021-12-07] MEDS: DOCUSATE SODIUM 100 MG (COLACE) CAP PO SCH ×2 (09:46→20:17)
[2021-12-07] MEDS: FOLIC ACID 1 MG TAB PO SCH (09:46)
[2021-12-07] MEDS: ASCORBIC ACID (VIT C) 500 MG TABLET PO SCH (09:46)
[2021-12-07] MEDS: SENNOSIDES 8.6 MG (SENOKOT) TAB PO SCH ×2 (09:46→20:17)
[2021-12-07] MEDS: DULoxetine 30 MG (CYMBALTA) CAP PO SCH (09:46)
[2021-12-07] MEDS: MONTELUKAST 10 MG (SINGULAIR) TAB PO SCH (09:47)
[2021-12-07] MEDS: SENNA W/DOCUSATE (SENOKOT S) TABLET PO SCH ×2 (09:47→20:17)
[2021-12-07] MEDS: PANTOPRAZOLE 40 MG (PROTONIX) TAB PO SCH (09:47)
[2021-12-07] MEDS: meTOproloL SUCCINATE 50 MG (TOPROL XL) TAB PO SCH (09:47)
[2021-12-07] MEDS: FLECAINIDE 100 MG (TAMBOCOR) TAB PO SCH ×2 (09:48→20:17)
[2021-12-07] MEDS: FLUoxetine HCL 20 MG (PROzac) CAP PO SCH (09:48)
[2021-12-07] MEDS: FERROUS SULF 325 MG (IRON) TAB PO SCH (09:49)
[2021-12-07] MEDS: BENZONATATE 100 MG (TESSALON) CAPSULE PO SCH ×3 (09:49→20:16)
[2021-12-07] MEDS: LACTULOSE SYRUP 10GM/15ML (ENULOSE) 30ML UDC PO SCH ×2 (09:50→20:17)
[2021-12-07] MEDS: AMITRIPTYLINE 10 MG (ELAVIL) TAB PO SCH (10:09)
--- NOTE | 2021-12-07 10:10 | Consultation - Surgery ---
History of Present Illness History of Present Illness Patient Consulted On(jay/time) 12/07/21 10:10 Date Seen by Provider: Dec 07, 2021 Time Seen by Provider: 10:10 Reason for Visit: Shortness of breath History of Present Illness Consult requested by Dr. Rawls for anemia. Patient is a 61 year old female with pneumonia bacteremia and alcohol withdrawal. Patient with Afib rvr and on abixiban. Her hgb is 7.5 which is stable. She denies any abdominal pain. Her breathing is improving she states. She does not notice any dark or bloody stools. She does have occasional GERD symptoms. Fairly controlled on her medications she states. She states overall she is improving. Denies any other complaints at this time. Allergies and Home Medications Allergies Coded Allergies: cephalexin (Verified Allergy, Severe, Has received ceftriaxone in the past w/o issue, 11/29/21) Patient Home Medication List Home Medication List Reviewed: Yes Amitriptyline HCl (Amitriptyline HCl) 10 Mg Tablet, 10 MG PO DAILY, (Reported) Entered as Reported by: INGRID SLADE on 12/06/2143 Last Action: Continued Apixaban (Eliquis) 5 Mg Tablet, 5 MG PO DAILY, (Reported) Entered as Reported by: INGRID SLADE on 12/06/21 0944 Last Action: Continued Ascorbic Acid/Ascorbate Sodium (Vitamin C 250 mg Tablet Chew) 250 Mg Tab.chew, 250 MG PO DAILY, (Reported) Entered as Reported by: INGRID SLADE on 12/06/21 0946 Last Action: Converted Duloxetine HCl (Duloxetine HCl) 30 Mg Capsule.dr, 30 MG PO DAILY, (Reported) Entered as Reported by: INGRID GODINEZ on 11/26/21 1200 Last Action: Continued Ferrous Sulfate (Iron) 325 Mg (65 Mg Iron) Tablet, 325 MG PO DAILY, (Reported) Entered as Reported by: INGRID SLADE on 12/06/21 0947 Last Action: Continued Fluoxetine HCl (Fluoxetine HCl) 40 Mg Capsule, 40 MG PO DAILY, (Reported) Entered as Reported by: INGRID SLADE on 12/06/21 0943 Last Action: Converted Loperamide HCl (Imodium A-D) 1 Mg/7.5 Ml Liquid, 1 MG PO Q4H PRN for DIARRHEA, (Reported) Entered as Reported by: INGRID SLADE on 06/28/2134 Last Action: Continued Metoprolol Succinate (Metoprolol Succinate) 50 Mg Tab.er.24h, 50 MG PO DAILY, (Reported) Entered as Reported by: INGRID SLADE on 12/06/21943 Last Action: Continued Multivit-Minerals/Folic Acid (Multivitamin Gummies) 200 Mcg Tab.chew, 200 MCG PO DAILY, (Reported) Entered as Reported by: INGRID SLADE on 12/06/2146 Last Action: Converted Pramipexole Di-HCl (Pramipexole Dihydrochloride) 0.5 Mg Tablet, 0.5 MG PO HS, (Reported) Entered as Reported by: INGRID GODINEZ on 11/26/211199 Last Action: Continued Quetiapine Fumarate (Quetiapine Fumarate) 400 Mg Tablet, 400 MG PO HS, (Reported) Entered as Reported by: INGRID GODINEZ on 11/26/211199 Last Action: Converted Past Fyjbpki-Snhnki-Clnolc Hx Patient Social History Drug of Choice: EtOH Smoking Status: Former Smoker Alcohol Use?: Yes Have you traveled recently?: No Immunizations Up To Date Date of Influenza Vaccine: Apr 12, 2021 Surgeries History of Surgeries: Yes Surgeries: Abdominal, Appendectomy, Gallbladder Respiratory History of Respiratory Disorde: Yes Respiratory Disorders: COPD Cardiovascular History of Cardiac Disorders: Yes Cardiac Disorders: Atrial Fibrillation, High Cholesterol, Hypertension Neurological History of Neurological Disord: No Genitourinary History of Genitourinary Disor: No Gastrointestinal History of Gastrointestinal Di: Yes Gastrointestinal Disorders: Gastroesophageal Reflux Musculoskeletal History of Musculoskeletal Dis: No Endocrine History of Endocrine Disorders: No Cancer History of Cancer: No Psychosocial History of Psychiatric Problem: Yes Behavioral Health Disorders: Bipolar Reviewed Nursing Assessment Reviewed/Agree w Nursing PMH: Yes Family Medical History Significant Family History: No Pertinent Family Hx Review of Systems-General Constitutional: No chills, No diaphoresis EENTM: No blurred vision Respiratory: dyspnea on exertion, short of breath Cardiovascular: No chest pain, No palpitations Gastrointestinal: No abdominal pain, No nausea, No vomiting Genitourinary: No decreased output, No discharge Musculoskeletal: No back pain, No joint pain Skin: No change in color, No change in hair/nails Psychiatric/Neurological: Denies Anxiety, Denies Depressed, Denies Emotional Problems All Other Systems Reviewed Negative Unless Noted: Yes (Negative excepted noted.) Physical Exam-General Problems Physical Exam Vital Signs Vital Signs - First Documented 12/04/21 12/04/21 12/04/21 10:53 11:00 12:00 Temp 36.3 Pulse 89 Resp 15 B/P (MAP) 154/93 (113) Pulse Ox 94 O2 Delivery Nasal Cannula O2 Flow Rate 5.00 Capillary Refill : General Appearance: no apparent distress, mild distress HEENT: PERRL/EOMI, normal ENT inspection Neck: non-tender Respiratory: chest non-tender, no respiratory distress, no accessory muscle use Cardiovascular: no JVD, irregularly irregular Gastrointestinal: non tender, soft Rectal: deferred Back: normal inspection, no CVA tenderness Extremities: non-tender, normal inspection Neurologic/Psychiatric: alert, normal mood/affect, oriented x 3 Skin: normal color, warm/dry Lymphatic: no adenopathy Data Review Labs Laboratory Tests 12/07/21 05:59: White Blood Count 13.7H, Red Blood Count 2.43L, Hemoglobin 7.5L, Hematocrit 25L, Mean Corpuscular Volume 101H, Mean Corpuscular Hemoglobin 31, Mean Corpuscular Hemoglobin Concent 31L, Red Cell Distribution Width 15.4H, Platelet Count 393, Mean Platelet Volume 10.2, Immature Granulocyte % (Auto) 1, Neutrophils (%) ( Auto) 87H, Lymphocytes (%) (Auto) 9L, Monocytes (%) (Auto) 3, Eosinophils (%) (Auto) 0, Basophils (%) (Auto) 0, Neutrophils # (Auto) 11.9H, Lymphocytes # (Auto) 1.2, Monocytes # (Auto) 0.5, Eosinophils # (Auto) 0.0, Basophils # (Auto) 0.0, Immature Granulocyte # (Auto) 0.1, Neutrophils % (Manual) 94, Lymphocytes % (Manual) 4, Monocytes % (Manual) 2, Anisocytosis MODERATE, Sodium Level 139, Potassium Level 3.7, Chloride Level 99, Carbon Dioxide Level 27, Anion Gap 13, Blood Urea Nitrogen 14, Creatinine 1.56H, Estimat Glomerular Filtration Rate 37, BUN/Creatinine Ratio 9, Glucose Level 180H, Calcium Level 8.9, Corrected Calcium 9.6, Total Bilirubin 0.8, Aspartate Amino Transf (AST/SGOT) 19, Alanine Aminotransferase (ALT/SGPT) 14, Alkaline Phosphatase 76, Total Protein 6.1L, Albumin 3.1L, Vancomycin Level Trough 32.5*H Assessment/Plan Assessment/Plan Assessment/Plan anemia GERD Etoh Withdrawal Pneumonia Afib rvr snf anticoagulation patient with anemia which has been stable and on anticogulation. added carafate to current regimen has not had colonoscopy for greater than 10 years, would recomend egd/colonoscopy inpatient vs outpatient since hgb stable and currently on Eliquis likely outpatient follow hgb transfuse prbc if needed KEYLA ZELAYA DO Dec 07, 2021 10:10
[2021-12-07] MEDS: APIXABAN 5 MG (ELIQUIS) TABLET PO SCH ×2 (10:14→20:17)
[2021-12-07] MEDS: SUCRALFATE 1 GM (CARAFATE) TAB PO SCH ×3 (11:24→20:17)
[2021-12-07] MEDS: PRAMIPEXOLE 0.5 MG TAB (MIRAPEX) PO SCH (20:16)
[2021-12-07] MEDS: QUEtiapine 200 MG (SEROquel) TAB IMMEDIATE RELEASE PO SCH (20:16)
[2021-12-08] MEDS: PIPERACILLIN SODIUM/TAZOBACTAM 4.5 GM in NS (IVPB) 100 ML IV SCH ×3 (01:50→17:21)
[2021-12-08] MEDS: morphine INJ 4 MG/ML 1 ML (VIAL/SYRINGE) IV PRN ×4 (01:50→21:37)
[2021-12-08 03:46] VITALS: BP 131/75
--- NOTE | 2021-12-08 05:52 | Progress Note - Hospitalist ---
Subjective HPI/CC On Admission Date Seen by Provider: Dec 08, 2021 Time Seen by Provider: 09:00 Chief complaint: Pneumonia with acute respiratory failure History of present illness: This is a 61-year-old female who was transferred from [facility] due to shortness of breath 1 day after discharge from a complicated ICU course which included A. fib with RVR status post cardioversion and pneumonia with bacteremia and alcohol withdrawal. She had been discharged to a [facility] for alcohol rehab when she began having shortness of breath so was brought to [facility] found to have significant pneumonia and due to cardiac risk factors she was transferred to higher level care. Currently she is feeling much better. Subjective/Events-last exam Pt feels like she isn't doing well today Hypotension noted Hemoglobin is 7.[address] Smith consulted for scope Overall very debilitated status Review of Systems General: Fatigue, Malaise Pulmonary: Dyspnea, Cough Objective Exam Vital Signs Vital Signs Date Time Temp Pulse Resp B/P (MAP) Pulse Ox O2 Delivery O2 Flow Rate FiO2 12/08/21 19:16 95 Nasal Cannula 5.00 12/08/21 19:00 82 12/08/21 16:54 36.2 22 152/86 (108) Capillary Refill : General Appearance: No Apparent Distress, WD/WN, Chronically ill Respiratory: Lungs Clear, Normal Breath Sounds, Decreased Breath Sounds Cardiovascular: Regular Rate, Rhythm Neurologic/Psychiatric: Alert, Oriented x3, No Motor/Sensory Deficits, Normal Mood/Affect Results/Procedures Lab Laboratory Tests 12/08/21 06:41 Patient resulted labs reviewed. Assessment/Plan Assessment and Plan Assess & Plan/Chief Complaint Assessment: Pneumonia Hypoxia History of A. fib with RVR status post cardioversion last week Alcohol withdrawal hospital course last week Recent E. coli bacteremia Anemia Plan: IV antibiotics Supportive care Nebs O2 Singulair Steroids Dr Smith consult Ambulate BENY WHEELER DO Dec 08, 2021 05:52
[2021-12-08] MEDS: methylPREDNISolone 40 MG/ML (Solu-MEDROL) VIAL IV SCH ×2 (05:57→17:20)
[2021-12-08] MEDS: KCL 20 MEQ TAB (K-DUR) PO SCH (05:57)
[2021-12-08] MEDS: MULTIVIT W/MINERALS TAB (THERAGRAN M) PO SCH (05:57)
[2021-12-08] MEDS: SUCRALFATE 1 GM (CARAFATE) TAB PO SCH ×4 (05:58→20:07)
[2021-12-08 06:54] LABS: BASOPHILS % (AUTO) 0 % (0-10); EOSINOPHILS % (AUTO) 0 % (0-10); HEMATOCRIT 26 % (35-52); HEMOGLOBIN 7.4 g/dL (11.5-16.0); LYMPHOCYTES # (AUTO) 1.8 10^3/uL (1.0-4.0); LYMPHOCYTES % (AUTO) 13 % (12-44); MEAN CORPUSCULAR HEMOGLOBIN 31 pg (25-34); MEAN CORPUSCULAR HGB CONC 29 g/dL (32-36); MEAN CORPUSCULAR VOLUME 106 fL (80-99); MEAN PLATELET VOLUME 10.2 fL (9.0-12.2); MONOCYTES # (AUTO) 0.8 10^3/uL (0.0-1.0); MONOCYTES % (AUTO) 5 % (0-12); NEUTROPHILS # (AUTO) 11.6 10^3/uL (1.8-7.8); NEUTROPHILS % (AUTO) 81 % (42-75); PLATELET COUNT 390 10^3/uL (130-400); WHITE BLOOD COUNT 14.3 10^3/uL (4.3-11.0)
[2021-12-08] MEDS ORDERED: TROUGH ORDER-PHARMACY XX ONE (07:00)
[2021-12-08 07:12] LABS: ALBUMIN 3.1 GM/DL (3.2-4.5); POTASSIUM 4.7 MMOL/L (3.6-5.0)
[2021-12-08 07:13] LABS: CALCIUM 8.8 MG/DL (8.5-10.1)
[2021-12-08 07:14] LABS: TOTAL PROTEIN 6.1 GM/DL (6.4-8.2)
[2021-12-08 07:28] LABS: VANCOMYCIN,TROUGH 22.9 UG/ML (10.0-20.0)
[2021-12-08] MEDS: RT--FLUTICASONE/SALMETEROL 113-14 (AIRDUO RespiCLICK) IH SCH ×2 (07:31→19:14)
[2021-12-08] MEDS: RT-ALBUTEROL SULF 2.5 MG/3 ML PRE-MIX VIAL INH SCH ×2 (07:31→19:14)
[2021-12-08 07:56] VITALS: BP 108/52
--- NOTE | 2021-12-08 08:33 | Cardiology Progress Note ---
Progress Note-Cardiology Events since last exam Date Seen by Provider: Dec 08, 2021 Time Seen by Provider: 08:32 Events since last exam I am following her due to atrial fibrillation. Today she feels weak. She t hinks this is because her blood pressure is low although she has not had any systolic readings below 100 mmHg. She is starting to cough again. She denies chest discomfort. She denies dyspnea at rest. She denies palpitations, syncope, or ankle edema. Certain portions of this document may have been dictated utilizing voice recognition technology. Inherent to this technology, typographical and grammatical errors may exist. As much as I am diligent to identify and correct these mistakes, some errors may remain in the document. Vitals Last set of Vitals Signs Vital Signs 12/08/21 16:54 Temp 36.2 Pulse 79 Resp 22 B/P (MAP) 152/86 (108) Pulse Ox 97 O2 Delivery Nasal Cannula O2 Flow Rate 5.00 Labs Labs Laboratory Tests 12/08/21 06:41 Exam Vital Signs Vital Signs Date Time Temp Pulse Resp B/P (MAP) Pulse Ox O2 Delivery O2 Flow Rate FiO2 12/08/21 16:54 36.2 79 22 152/86 (108) 97 Nasal Cannula 5.00 Physical Exam General: Alert. No acute distress. She is obese. Eye: No xanthelasma. HENT: Normocephalic. Neck: Jugular venous pressure does not appear elevated. Respiratory: Lungs are clear to auscultation. Respirations are non-labored. Breath sounds are equal. Symmetrical chest wall expansion. Cardiovascular: Normal rate. Regular rhythm. 2/6 systolic ejection murmur. No gallop. No edema. Gastrointestinal: Soft. Normal bowel sounds. Skin: Warm. Dry. Neurologic: Alert and oriented to person, place, time. Cranial nerves 3-11 grossly intact. Psychiatric: Cooperative. Appropriate mood & affect. Labs Laboratory Tests Test 12/08/21 06:41 12/08/21 15:15 Range/Units White Blood Count 14.3 H 4.3-11.0 10^3/uL Red Blood Count 2.41 L 3.80-5.11 10^6/uL Hemoglobin 7.4 L 11.5-16.0 g/dL Hematocrit 26 L 35-52 % Mean Corpuscular Volume 106 H 80-99 fL Mean Corpuscular Hemoglobin 31 25-34 pg Mean Corpuscular Hemoglobin Concent 29 L 32-36 g/dL Red Cell Distribution Width 15.9 H 10.0-14.5 % Platelet Count 390 130-400 10^3/uL Mean Platelet Volume 10.2 9.0-12.2 fL Immature Granulocyte % (Auto) 1 % Neutrophils (%) (Auto) 81 H 42-75 % Lymphocytes (%) (Auto) 13 12-44 % Monocytes (%) (Auto) 5 0-12 % Eosinophils (%) (Auto) 0 0-10 % Basophils (%) (Auto) 0 0-10 % Neutrophils # (Auto) 11.6 H 1.8-7.8 10^3/uL Lymphocytes # (Auto) 1.8 1.0-4.0 10^3/uL Monocytes # (Auto) 0.8 0.0-1.0 10^3/uL Eosinophils # (Auto) 0.0 0.0-0.3 10^3/uL Basophils # (Auto) 0.0 0.0-0.1 10^3/uL Immature Granulocyte # (Auto) 0.1 0.0-0.1 10^3/uL Sodium Level 137 135-145 MMOL/L Potassium Level 4.7 3.6-5.0 MMOL/L Chloride Level 98 98-107 MMOL/L Carbon Dioxide Level 27 21-32 MMOL/L Anion Gap 12 5-14 MMOL/L Blood Urea Nitrogen 21 H 7-18 MG/DL Creatinine 2.00 H 0.60-1.30 MG/DL Estimat Glomerular Filtration Rate 28 BUN/Creatinine Ratio 11 Glucose Level 95 70-105 MG/DL Calcium Level 8.8 8.5-10.1 MG/DL Corrected Calcium 9.5 8.5-10.1 MG/DL Total Bilirubin 1.0 0.1-1.0 MG/DL Aspartate Amino Transf (AST/SGOT) 61 H 5-34 U/L Alanine Aminotransferase (ALT/SGPT) 26 0-55 U/L Alkaline Phosphatase 72 40-136 U/L Total Protein 6.1 L 6.4-8.2 GM/DL Albumin 3.1 L 3.2-4.5 GM/DL Vancomycin Level Trough 22.9 H 10.0-20.0 UG/ML Stool Occult Blood Immunoassay POSITIVE H NEGATIVE Diagnosis/Problems Diagnosis/Problems (1) Persistent atrial fibrillation Assessment & Plan: No signs of recurrence on flecainide. She is on beta- tahir for rate control in the event she has recurrent atrial fibrillation. She had been on apixaban prior to discharge but has anemia. Her hemoglobin level has been stable. I restarted her apixaban on 12/06. The hospitalist has ordered iron studies and stool Hemoccult. General surgery has seen and plans to arrange for an outpatient EGD and colonoscopy. (2) Primary hypertension Status: Chronic Assessment & Plan: She feels like her blood pressure has been low but her blood pressure has been reasonably controlled with present medication. (3) Aortic stenosis Status: Chronic Assessment & Plan: This has been in a mild range and should not be causing symptoms but will need to be followed. (4) Acute kidney injury Assessment & Plan: Her creatinine went up over the past 48 hours. Exact etiology unclear. She is not receiving diuretic. I will give her a a fluid bolus. I will also consult pharmacy to see if any of her antibiotics could be causing the creatinine to go up. This will need to be watched closely. (5) Anemia Assessment & Plan: Etiology unclear. Her hemoglobin was normal earlier in the month. Some of the anemia could be related to her alcohol abuse. However, she probably needs some additional evaluation of the anemia which I will leave up to the discretion of the hospitalist. She has been seen by general surgery who will arrange for some outpatient testing as outlined above. (6) Acute on chronic respiratory failure with hypoxemia Assessment & Plan: Most likely due to pneumonia for which she is being treated. CONI LEWIS JR, MD Dec 08, 2021 08:33
[2021-12-08] MEDS: FERROUS SULF 325 MG (IRON) TAB PO SCH (08:45)
[2021-12-08] MEDS: PANTOPRAZOLE 40 MG (PROTONIX) TAB PO SCH (08:45)
[2021-12-08] MEDS: AMITRIPTYLINE 10 MG (ELAVIL) TAB PO SCH (08:45)
[2021-12-08] MEDS: LACTULOSE SYRUP 10GM/15ML (ENULOSE) 30ML UDC PO SCH ×2 (08:45→20:05)
[2021-12-08] MEDS: ASCORBIC ACID (VIT C) 500 MG TABLET PO SCH (08:46)
[2021-12-08] MEDS: BENZONATATE 100 MG (TESSALON) CAPSULE PO SCH ×3 (08:46→20:06)
[2021-12-08] MEDS: APIXABAN 5 MG (ELIQUIS) TABLET PO SCH (08:46)
[2021-12-08] MEDS: MONTELUKAST 10 MG (SINGULAIR) TAB PO SCH (08:47)
[2021-12-08] MEDS: FOLIC ACID 1 MG TAB PO SCH (08:47)
[2021-12-08] MEDS: DOCUSATE SODIUM 100 MG (COLACE) CAP PO SCH ×2 (08:47→20:07)
[2021-12-08] MEDS: DULoxetine 30 MG (CYMBALTA) CAP PO SCH (08:47)
[2021-12-08] MEDS: SENNA W/DOCUSATE (SENOKOT S) TABLET PO SCH ×2 (08:47→20:07)
[2021-12-08] MEDS: FLUoxetine HCL 20 MG (PROzac) CAP PO SCH (08:47)
[2021-12-08] MEDS: SENNOSIDES 8.6 MG (SENOKOT) TAB PO SCH ×2 (08:48→20:06)
[2021-12-08 11:13] VITALS: BP 106/56
--- NOTE | 2021-12-08 11:18 | Progress Note - Surgery ---
Subjective Date Seen by a Provider: Dec 08, 2021 Time Seen by a Provider: 11:18 Subjective/Events-last exam Feeling worse today in terms of her breathing. No abdominal pain. Hgb stable. WBC slight increase. Denies n/v fever sweats chills or chest pain. Objective Exam Vital Signs Date Time Temp Pulse Resp B/P (MAP) Pulse Ox O2 Delivery O2 Flow Rate FiO2 12/08/21 11:13 35.9 84 18 106/56 (73) 93 Nasal Cannula 5.00 12/08/21 07:56 35.9 91 16 108/52 (70) 94 Nasal Cannula 5.00 12/08/21 07:31 95 Nasal Cannula 5.00 12/08/21 06:43 79 12/08/21 03:46 35.8 79 18 131/75 (93) 93 Nasal Cannula 5.00 12/08/21 01:00 76 12/07/21 23:10 36.1 73 18 127/75 (92) 92 Nasal Cannula 5.00 12/07/21 20:26 36.3 82 18 144/64 (90) 92 Nasal Cannula 5.00 12/07/21 20:25 92 Nasal Cannula 5.00 12/07/21 20:00 92 Nasal Cannula 5.00 12/07/21 18:39 84 12/07/21 16:30 36.2 96 18 121/64 (83) 94 Nasal Cannula 5.00 12/07/21 12:37 89 I & O 12/08/21 07:00 Intake Total 2000 ml Balance 2000 ml Capillary Refill : General Appearance: No Apparent Distress, WD/WN HEENT: PERRL/EOMI, Normal ENT Inspection, Pharynx Normal, Moist Mucous Membranes Neck: Full Range of Motion, Normal Inspection, Non Tender Respiratory: Chest Non Tender, No Accessory Muscle Use, No Respiratory Distress, Decreased Breath Sounds Cardiovascular: Regular Rate, Rhythm, No JVD Gastrointestinal: non tender, soft Extremity: Normal Capillary Refill, Normal Inspection, Normal Range of Motion, Non Tender, No Calf Tenderness, No Pedal Edema Neurologic/Psychiatric: Alert, Oriented x3, No Motor/Sensory Deficits, regulatory coordinator II- XII Norm as Tested, Depressed Affect Skin: Normal Color, Warm/Dry Lymphatic: No Adenopathy Results Lab Laboratory Tests 12/08/21 06:41: White Blood Count 14.3H, Red Blood Count 2.41L, Hemoglobin 7.4L, Hematocrit 26L, Mean Corpuscular Volume 106H, Mean Corpuscular Hemoglobin 31, Mean Corpuscular Hemoglobin Concent 29L, Red Cell Distribution Width 15.9H, Platelet Count 390, Mean Platelet Volume 10.2, Immature Granulocyte % (Auto) 1, Neutrophils (%) (Auto) 81H, Lymphocytes (%) (Auto) 13, Monocytes (%) (Auto) 5, Eosinophils (%) (Auto) 0, Basophils (%) (Auto) 0, Neutrophils # (Auto) 11.6H, Lymphocytes # (Auto) 1.8, Monocytes # (Auto) 0.8, Eosinophils # (Auto) 0.0, Basophils # (Auto) 0.0, Immature Granulocyte # (Auto) 0.1, Sodium Level 137, Potassium Level 4.7, Chloride Level 98, Carbon Dioxide Level 27, Anion Gap 12, Blood Urea Nitrogen 21H, Creatinine 2.00H, Estimat Glomerular Filtration Rate 28, BUN/Creatinine Ratio 11, Glucose Level 95, Calcium Level 8.8, Corrected Calcium 9.5, Total Bilirubin 1.0, Aspartate Amino Transf (AST/SGOT) 61H, Alanine Aminotransferase (ALT/SGPT) 26, Alkaline Phosphatase 72, Total Protein 6.1L, Albumin 3.1L, Vancomycin Level Trough 22.9H Assessment/Plan Assessment/Plan Assessment/Plan anemia GERD Etoh Withdrawal Pneumonia Afib [facility] anticoagulation patient with anemia which has been stable and on anticogulation. Protonix/ carafate has not had colonoscopy for greater than 10 years, would recomend egd/colonoscopy inpatient vs outpatient since hgb stable and currently on Eliquis likely outpatient follow hgb transfuse prbc if needed slightly worsening respiratory status today, encouraged using IS KEYLA ZELAYA DO Dec 08, 2021 11:18
[2021-12-08] MEDS: FLECAINIDE 100 MG (TAMBOCOR) TAB PO SCH ×2 (11:27→20:08)
[2021-12-08] MEDS: meTOproloL SUCCINATE 50 MG (TOPROL XL) TAB PO SCH (11:28)
[2021-12-08 16:54] VITALS: BP 152/86
[2021-12-08] MEDS: NS IV 500 ML 500 ML IV SCH (18:17)
[2021-12-08 19:30] VITALS: BP 157/84
[2021-12-08] MEDS: PRAMIPEXOLE 0.5 MG TAB (MIRAPEX) PO SCH (20:06)
[2021-12-08] MEDS: QUEtiapine 200 MG (SEROquel) TAB IMMEDIATE RELEASE PO SCH (20:07)
[2021-12-08] MEDS: MELATONIN 3 MG TABLET PO PRN (20:07)
[2021-12-08 23:52] VITALS: BP 126/73
[2021-12-09] VITALS (9 sets, daily range): BP systolic 128–159; BP diastolic 70–82
[2021-12-09] MEDS: NS IV 500 ML 500 ML IV SCH
[2021-12-09] MEDS: PIPERACILLIN SODIUM/TAZOBACTAM 4.5 GM in NS (IVPB) 100 ML IV SCH ×3 (01:13→18:16)
[2021-12-09] MEDS: SUCRALFATE 1 GM (CARAFATE) TAB PO SCH ×4 (04:54→21:00)
[2021-12-09] MEDS: methylPREDNISolone 40 MG/ML (Solu-MEDROL) VIAL IV SCH ×2 (04:54→18:16)
--- NOTE | 2021-12-09 05:56 | Progress Note - Hospitalist ---
Subjective HPI/CC On Admission Date Seen by Provider: Dec 09, 2021 Time Seen by Provider: 11:00 Chief complaint: Pneumonia with acute respiratory failure History of present illness: This is a 61-year-old female who was transferred from [facility] due to shortness of breath 1 day after discharge from a complicated ICU course which included A. fib with RVR status post cardioversion and pneumonia with bacteremia and alcohol withdrawal. She had been discharged to a [facility] for alcohol rehab when she began having shortness of breath so was brought to [facility] found to have significant pneumonia and due to cardiac risk factors she was transferred to higher level care. Currently she is feeling much better. Subjective/Events-last exam Pt is doing about the same Hemoglobin is 7.1, will give one unit of blood Creatinine was 2.17 Overall appears to be very fatigued Review of Systems General: Fatigue Pulmonary: Dyspnea Objective Exam Vital Signs Vital Signs Date Time Temp Pulse Resp B/P (MAP) Pulse Ox O2 Delivery O2 Flow Rate FiO2 12/09/21 20:02 36.4 69 18 159/77 (104) 94 Nasal Cannula 4.00 Capillary Refill : General Appearance: No Apparent Distress, WD/WN, Chronically ill Respiratory: Lungs Clear, Normal Breath Sounds Cardiovascular: Regular Rate, Rhythm Neurologic/Psychiatric: Alert, Oriented x3, No Motor/Sensory Deficits, Depressed Affect Results/Procedures Lab Laboratory Tests 12/09/21 05:29 Patient resulted labs reviewed. Assessment/Plan Assessment and Plan Assess & Plan/Chief Complaint Assessment: Pneumonia Hypoxia History of A. fib with RVR status post cardioversion last week Alcohol withdrawal hospital course last week Recent E. coli bacteremia Anemia requiring transfusion 12/09/21 Plan: IV antibiotics Supportive care Nebs O2 Singulair Steroids Dr Smith consult Ambulate Transfuse Change IV steroids to PO BENY WHEELER DO Dec 09, 2021 05:56
[2021-12-09] MEDS: KCL 20 MEQ TAB (K-DUR) PO SCH (05:57)
[2021-12-09] MEDS: MULTIVIT W/MINERALS TAB (THERAGRAN M) PO SCH (05:57)
[2021-12-09] MEDS: LOPERAMIDE SUSP 2 MG/15 ML (IMODIUM) UDC PO PRN (06:00)
[2021-12-09 06:05] LABS: BASOPHILS % (AUTO) 0 % (0-10); EOSINOPHILS % (AUTO) 0 % (0-10); HEMATOCRIT 23 % (35-52); HEMOGLOBIN 7.1 g/dL (11.5-16.0); LYMPHOCYTES # (AUTO) 1.7 10^3/uL (1.0-4.0); LYMPHOCYTES % (AUTO) 17 % (12-44); MEAN CORPUSCULAR HEMOGLOBIN 31 pg (25-34); MEAN CORPUSCULAR HGB CONC 31 g/dL (32-36); MEAN CORPUSCULAR VOLUME 101 fL (80-99); MONOCYTES # (AUTO) 0.6 10^3/uL (0.0-1.0); MONOCYTES % (AUTO) 7 % (0-12); NEUTROPHILS # (AUTO) 7.1 10^3/uL (1.8-7.8); NEUTROPHILS % (AUTO) 75 % (42-75); PLATELET COUNT 388 10^3/uL (130-400); WHITE BLOOD COUNT 9.5 10^3/uL (4.3-11.0)
[2021-12-09 06:26] LABS: ALBUMIN 3.1 GM/DL (3.2-4.5)
[2021-12-09 06:27] LABS: POTASSIUM 3.6 MMOL/L (3.6-5.0)
[2021-12-09 06:28] LABS: CALCIUM 8.8 MG/DL (8.5-10.1)
[2021-12-09 06:29] LABS: TOTAL PROTEIN 5.8 GM/DL (6.4-8.2)
[2021-12-09 06:31] LABS: BILIRUBIN,TOTAL 0.9 MG/DL (0.1-1.0)
[2021-12-09 06:33] LABS: CREATININE SERUM 2.17 MG/DL (0.60-1.30)
[2021-12-09] MEDS: RT-ALBUTEROL SULF 2.5 MG/3 ML PRE-MIX VIAL INH SCH ×2 (07:59→21:20)
[2021-12-09] MEDS: RT--FLUTICASONE/SALMETEROL 113-14 (AIRDUO RespiCLICK) IH SCH ×2 (07:59→21:20)
[2021-12-09] MEDS: LACTULOSE SYRUP 10GM/15ML (ENULOSE) 30ML UDC PO SCH ×2 (09:35→21:17)
[2021-12-09] MEDS: ACETAMINOPHEN 325 MG TABLET PO PRN ×3 (09:36→20:58)
[2021-12-09] MEDS: AMITRIPTYLINE 10 MG (ELAVIL) TAB PO SCH (09:37)
[2021-12-09] MEDS: ASCORBIC ACID (VIT C) 500 MG TABLET PO SCH (09:37)
[2021-12-09] MEDS: FLUoxetine HCL 20 MG (PROzac) CAP PO SCH (09:38)
[2021-12-09] MEDS: FLECAINIDE 100 MG (TAMBOCOR) TAB PO SCH ×2 (09:38→20:59)
[2021-12-09] MEDS: FERROUS SULF 325 MG (IRON) TAB PO SCH (09:38)
[2021-12-09] MEDS: FOLIC ACID 1 MG TAB PO SCH (09:39)
[2021-12-09] MEDS: meTOproloL SUCCINATE 50 MG (TOPROL XL) TAB PO SCH (09:39)
[2021-12-09] MEDS: MONTELUKAST 10 MG (SINGULAIR) TAB PO SCH (09:39)
[2021-12-09] MEDS: PANTOPRAZOLE 40 MG (PROTONIX) TAB PO SCH (09:39)
[2021-12-09] MEDS: BENZONATATE 100 MG (TESSALON) CAPSULE PO SCH ×3 (09:40→20:58)
[2021-12-09] MEDS: DOCUSATE SODIUM 100 MG (COLACE) CAP PO SCH ×2 (10:14→21:16)
[2021-12-09] MEDS: SENNOSIDES 8.6 MG (SENOKOT) TAB PO SCH ×2 (10:16→21:17)
[2021-12-09] MEDS: SENNA W/DOCUSATE (SENOKOT S) TABLET PO SCH ×2 (10:16→21:17)
[2021-12-09] MEDS: DULoxetine 30 MG (CYMBALTA) CAP PO SCH (10:24)
[2021-12-09] MEDS ORDERED: NS IV 500 ML 500 ML IV SCH (11:00)
--- NOTE | 2021-12-09 12:48 | Progress Note - Surgery ---
Subjective Date Seen by a Provider: Dec 09, 2021 Time Seen by a Provider: 12:41 Subjective/Events-last exam Patient breathing about the same as yesterday. Hgb 7.1. No abdominal pain. Tolerating diet. Denies n/v fever sweats chills shortness Objective Exam Vital Signs Date Time Temp Pulse Resp B/P (MAP) Pulse Ox O2 Delivery O2 Flow Rate FiO2 12/09/21 11:41 96 Nasal Cannula 4.00 12/09/21 11:40 36.2 67 20 128/77 (94) 98 Nasal Cannula 4.00 12/09/21 08:03 36.3 80 20 143/78 (99) 99 Nasal Cannula 5.00 12/09/21 08:00 94 Nasal Cannula 4.00 12/09/21 07:59 95 Nasal Cannula 5.00 12/09/21 07:00 93 Nasal Cannula 4.00 12/09/21 07:00 69 12/09/21 03:18 36.4 78 22 153/82 (105) 100 Nasal Cannula 5.00 12/09/21 01:00 96 12/08/21 23:52 35.7 74 22 126/73 (90) 97 Nasal Cannula 5.00 12/08/21 22:03 92 Nasal Cannula 5.00 12/08/21 20:00 92 Nasal Cannula 5.00 12/08/21 19:30 36.2 88 22 157/84 (108) 97 Nasal Cannula 5.00 12/08/21 19:16 95 Nasal Cannula 5.00 12/08/21 19:00 82 12/08/21 16:54 36.2 79 22 152/86 (108) 97 Nasal Cannula 5.00 I & O 12/09/21 07:00 Intake Total 3050 ml Balance 3050 ml Capillary Refill : General Appearance: No Apparent Distress, WD/WN, Chronically ill HEENT: PERRL/EOMI, Normal ENT Inspection, Pharynx Normal, Moist Mucous Membranes Neck: Full Range of Motion, Normal Inspection, Non Tender Respiratory: Chest Non Tender, Normal Breath Sounds, Decreased Breath Sounds Cardiovascular: Regular Rate, Rhythm Gastrointestinal: non tender, soft Extremity: Normal Capillary Refill, Normal Inspection, Normal Range of Motion, Non Tender, No Calf Tenderness, No Pedal Edema Neurologic/Psychiatric: Alert, Oriented x3, No Motor/Sensory Deficits, Normal Mood/Affect Skin: Normal Color, Warm/Dry Lymphatic: No Adenopathy Results Lab Laboratory Tests 12/08/21 15:15: Stool Occult Blood Immunoassay POSITIVEH 12/09/21 05:29: White Blood Count 9.5, Red Blood Count 2.30L, Hemoglobin 7.1L, Hematocrit 23L, Mean Corpuscular Volume 101H, Mean Corpuscular Hemoglobin 31, Mean Corpuscular Hemoglobin Concent 31L, Red Cell Distribution Width 15.7H, Platelet Count 388, Mean Platelet Volume 10.0, Immature Granulocyte % (Auto) 1, Neutrophils (%) (Auto) 75, Lymphocytes (%) (Auto) 17, Monocytes (%) (Auto) 7, Eosinophils (%) (Auto) 0, Basophils (%) (Auto) 0, Neutrophils # (Auto) 7.1, Lymphocytes # (Auto) 1.7, Monocytes # (Auto) 0.6, Eosinophils # (Auto) 0.0, Basophils # (Auto) 0.0, Immature Granulocyte # (Auto) 0.1, Sodium Level 139, Potassium Level 3.6, Chloride Level 101, Carbon Dioxide Level 28, Anion Gap 10, Blood Urea Nitrogen 24H, Creatinine 2.17H, Estimat Glomerular Filtration Rate 25, BUN/Creatinine Ratio 11, Glucose Level 105, Calcium Level 8.8, Corrected Calcium 9.5, Total Bilirubin 0.9, Aspartate Amino Transf (AST/SGOT) 38H, Alanine Aminotransferase (ALT/SGPT) 29, Alkaline Phosphatase 70, Total Protein 5.8L, Albumin 3.1L Assessment/Plan Assessment/Plan Assessment/Plan anemia GERD Etoh Withdrawal Pneumonia Afib rvr care home anticoagulation patient with anemia which has been stable and on anticogulation. Protonix/ carafate has not had colonoscopy for greater than 10 years, would recomend egd/colonoscopy inpatient vs outpatient since hgb stable and currently on Eliquis likely outpatient follow hgb transfuse prbc if needed respiratory status same as yesterday, encouraged using IS KEYLA ZELAYA DO Dec 09, 2021 12:48
--- NOTE | 2021-12-09 18:47 | Cardiology Progress Note ---
Progress Note-Cardiology Events since last exam Date Seen by Provider: Dec 09, 2021 Time Seen by Provider: 18:42 Events since last exam I am following her due to atrial fibrillation. Today she received a blood t ransfusion. She denies chest discomfort, dyspnea at rest, palpitations, syncope, or ankle edema. If she needs to have endoscopies, she would prefer to have this done before she is discharged. Certain portions of this document may have been dictated utilizing voice recognition technology. Inherent to this technology, typographical and grammatical errors may exist. As much as I am diligent to identify and correct these mistakes, some errors may remain in the document. Vitals Last set of Vitals Signs Vital Signs 12/09/21 18:00 Temp 36.0 Pulse 77 Resp 18 B/P (MAP) 142/77 Pulse Ox 95 O2 Delivery Nasal Cannula O2 Flow Rate 4.00 Labs Labs Laboratory Tests 12/09/21 05:29 Exam Vital Signs Vital Signs Date Time Temp Pulse Resp B/P (MAP) Pulse Ox O2 Delivery O2 Flow Rate FiO2 12/09/21 18:00 36.0 77 18 142/77 95 Nasal Cannula 4.00 Physical Exam General: Alert. No acute distress. She is obese. Eye: No xanthelasma. HENT: Normocephalic. Neck: Jugular venous pressure does not appear elevated. Respiratory: Lungs are clear to auscultation. Respirations are non-labored. Breath sounds are equal. Symmetrical chest wall expansion. Cardiovascular: Normal rate. Regular rhythm. Distant S1/S2. 2/6 systolic ejection murmur. No gallop. Trace bilateral pretibial edema. Gastrointestinal: Soft. Normal bowel sounds. Skin: Warm. Dry. Neurologic: Alert and oriented to person, place, time. Cranial nerves 3-11 grossly intact. Psychiatric: Cooperative. Appropriate mood & affect. Labs Laboratory Tests Test 12/09/21 05:29 Range/Units White Blood Count 9.5 4.3-11.0 10^3/uL Red Blood Count 2.30 L 3.80-5.11 10^6/uL Hemoglobin 7.1 L 11.5-16.0 g/dL Hematocrit 23 L 35-52 % Mean Corpuscular Volume 101 H 80-99 fL Mean Corpuscular Hemoglobin 31 25-34 pg Mean Corpuscular Hemoglobin Concent 31 L 32-36 g/dL Red Cell Distribution Width 15.7 H 10.0-14.5 % Platelet Count 388 130-400 10^3/uL Mean Platelet Volume 10.0 9.0-12.2 fL Immature Granulocyte % (Auto) 1 % Neutrophils (%) (Auto) 75 42-75 % Lymphocytes (%) (Auto) 17 12-44 % Monocytes (%) (Auto) 7 0-12 % Eosinophils (%) (Auto) 0 0-10 % Basophils (%) (Auto) 0 0-10 % Neutrophils # (Auto) 7.1 1.8-7.8 10^3/uL Lymphocytes # (Auto) 1.7 1.0-4.0 10^3/uL Monocytes # (Auto) 0.6 0.0-1.0 10^3/uL Eosinophils # (Auto) 0.0 0.0-0.3 10^3/uL Basophils # (Auto) 0.0 0.0-0.1 10^3/uL Immature Granulocyte # (Auto) 0.1 0.0-0.1 10^3/uL Sodium Level 139 135-145 MMOL/L Potassium Level 3.6 3.6-5.0 MMOL/L Chloride Level 101 98-107 MMOL/L Carbon Dioxide Level 28 21-32 MMOL/L Anion Gap 10 5-14 MMOL/L Blood Urea Nitrogen 24 H 7-18 MG/DL Creatinine 2.17 H 0.60-1.30 MG/DL Estimat Glomerular Filtration Rate 25 BUN/Creatinine Ratio 11 Glucose Level 105 70-105 MG/DL Calcium Level 8.8 8.5-10.1 MG/DL Corrected Calcium 9.5 8.5-10.1 MG/DL Total Bilirubin 0.9 0.1-1.0 MG/DL Aspartate Amino Transf (AST/SGOT) 38 H 5-34 U/L Alanine Aminotransferase (ALT/SGPT) 29 0-55 U/L Alkaline Phosphatase 70 40-136 U/L Total Protein 5.8 L 6.4-8.2 GM/DL Albumin 3.1 L 3.2-4.5 GM/DL Diagnosis/Problems Diagnosis/Problems (1) Persistent atrial fibrillation Assessment & Plan: No signs of recurrence on flecainide. She is on beta- tahir for rate control in the event she has recurrent atrial fibrillation and apixaban for stroke prophylaxis. Since she had a blood transfusion today, from a cardiac standpoint, I would prefer she have upper and lower endoscopy prior to discharge if possible by general surgery. (2) Primary hypertension Status: Chronic Assessment & Plan: Her blood pressure has been reasonably controlled with present medication but trended up slightly today. Continue to monitor. (3) Aortic stenosis Status: Chronic Assessment & Plan: This has been in a mild range and should not be causing symptoms but will need to be followed. (4) Acute kidney injury Assessment & Plan: Her creatinine went up over the past 48 hours. Exact etiology unclear. She is not receiving diuretic. I will gave her a a fluid bolus on 12/08 but her creatinine is worse today. Unclear whether or not this could be related to her anemia.. I consulted pharmacy to see if any of her antibiotics or other medications could be causing the creatinine to go up. This will need to be watched closely. (5) Anemia Assessment & Plan: Etiology unclear. Her hemoglobin was normal earlier in the month. Some of the anemia could be related to her alcohol abuse. As above, she has now received a blood transfusion. General surgery is following the patient in regards to deciding about inpatient versus outpatient endoscopies. (6) Acute on chronic respiratory failure with hypoxemia Assessment & Plan: Most likely due to pneumonia for which she is being treated. CONI LEWIS JR, MD Dec 09, 2021 18:47
[2021-12-09] MEDS: MELATONIN 3 MG TABLET PO PRN (20:59)
[2021-12-09] MEDS: QUEtiapine 200 MG (SEROquel) TAB IMMEDIATE RELEASE PO SCH (20:59)
[2021-12-09] MEDS: PRAMIPEXOLE 0.5 MG TAB (MIRAPEX) PO SCH (21:14)
[2021-12-10] MEDS: PIPERACILLIN SODIUM/TAZOBACTAM 4.5 GM in NS (IVPB) 100 ML IV SCH ×3 (02:13→17:57)
[2021-12-10 03:21] VITALS: BP 143/72
[2021-12-10 05:56] LABS: BASOPHILS % (AUTO) 0 % (0-10); EOSINOPHILS % (AUTO) 0 % (0-10); HEMATOCRIT 27 % (35-52); HEMOGLOBIN 8.2 g/dL (11.5-16.0); LYMPHOCYTES # (AUTO) 1.4 10^3/uL (1.0-4.0); LYMPHOCYTES % (AUTO) 12 % (12-44); MEAN CORPUSCULAR HEMOGLOBIN 31 pg (25-34); MEAN CORPUSCULAR HGB CONC 31 g/dL (32-36); MEAN CORPUSCULAR VOLUME 100 fL (80-99); MONOCYTES # (AUTO) 0.5 10^3/uL (0.0-1.0); MONOCYTES % (AUTO) 4 % (0-12); NEUTROPHILS # (AUTO) 9.1 10^3/uL (1.8-7.8); NEUTROPHILS % (AUTO) 82 % (42-75); PLATELET COUNT 383 10^3/uL (130-400); WHITE BLOOD COUNT 11.2 10^3/uL (4.3-11.0)
--- NOTE | 2021-12-10 06:04 | Progress Note - Hospitalist ---
Subjective HPI/CC On Admission Date Seen by Provider: Dec 10, 2021 Time Seen by Provider: 10:30 Chief complaint: Pneumonia with acute respiratory failure History of present illness: This is a 61-year-old female who was transferred from [facility] due to shortness of breath 1 day after discharge from a complicated ICU course which included A. fib with RVR status post cardioversion and pneumonia with bacteremia and alcohol withdrawal. She had been discharged to a [facility] for alcohol rehab when she began having shortness of breath so was brought to [facility] found to have significant pneumonia and due to cardiac risk factors she was transferred to higher level care. Currently she is feeling much better. Subjective/Events-last exam Pt is doing a little better Still very fatigued Nauseated today Creatinine is 2.1 Hemoglobin is 8.2 Alcohol rehab will likely wait until Monday Review of Systems General: Fatigue, Malaise Objective Exam Vital Signs Vital Signs Date Time Temp Pulse Resp B/P (MAP) Pulse Ox O2 Delivery O2 Flow Rate FiO2 12/10/21 19:00 71 12/10/21 16:11 36.4 16 171/87 (115) 97 Nasal Cannula 4.00 Capillary Refill : General Appearance: No Apparent Distress, WD/WN, Chronically ill, Obese Respiratory: Lungs Clear, Normal Breath Sounds, Decreased Breath Sounds Cardiovascular: Regular Rate, Rhythm Neurologic/Psychiatric: Alert, Oriented x3, No Motor/Sensory Deficits, Depressed Affect Results/Procedures Lab Laboratory Tests 12/10/21 05:20 Patient resulted labs reviewed. Assessment/Plan Assessment and Plan Assess & Plan/Chief Complaint Assessment: Pneumonia Hypoxia History of A. fib with RVR status post cardioversion last week Alcohol withdrawal hospital course last week Recent E. coli bacteremia Anemia requiring transfusion 12/09/21 Plan: IV antibiotics Supportive care Nebs O2 Singulair Steroids Dr Smith consult Ambulate Transfuse Change IV steroids to PO BENY WHEELER DO Dec 10, 2021 06:04
[2021-12-10 06:09] LABS: POTASSIUM 4.1 MMOL/L (3.6-5.0)
[2021-12-10 06:11] LABS: CALCIUM 8.7 MG/DL (8.5-10.1)
[2021-12-10 06:12] LABS: TOTAL PROTEIN 5.6 GM/DL (6.4-8.2)
[2021-12-10] MEDS: KCL 20 MEQ TAB (K-DUR) PO SCH (06:12)
[2021-12-10] MEDS: MULTIVIT W/MINERALS TAB (THERAGRAN M) PO SCH (06:12)
[2021-12-10] MEDS: SUCRALFATE 1 GM (CARAFATE) TAB PO SCH ×4 (06:13→20:13)
[2021-12-10 06:14] LABS: BILIRUBIN,TOTAL 0.8 MG/DL (0.1-1.0)
[2021-12-10 06:15] LABS: CREATININE SERUM 2.16 MG/DL (0.60-1.30)
[2021-12-10] MEDS: ACETAMINOPHEN 325 MG TABLET PO PRN (06:19)
[2021-12-10] MEDS ORDERED: predniSONE 20 MG TAB PO SCH (07:00)
[2021-12-10] MEDS: RT-ALBUTEROL SULF 2.5 MG/3 ML PRE-MIX VIAL INH SCH ×2 (07:29→21:50)
[2021-12-10] MEDS: RT--FLUTICASONE/SALMETEROL 113-14 (AIRDUO RespiCLICK) IH SCH ×2 (07:30→21:50)
[2021-12-10] MEDS: SENNOSIDES 8.6 MG (SENOKOT) TAB PO SCH ×2 (07:46→21:13)
[2021-12-10] MEDS: LACTULOSE SYRUP 10GM/15ML (ENULOSE) 30ML UDC PO SCH ×2 (07:46→21:13)
[2021-12-10] MEDS: SENNA W/DOCUSATE (SENOKOT S) TABLET PO SCH ×2 (07:46→21:13)
[2021-12-10] MEDS: DOCUSATE SODIUM 100 MG (COLACE) CAP PO SCH ×2 (07:46→21:13)
[2021-12-10] MEDS: FLUoxetine HCL 20 MG (PROzac) CAP PO SCH (08:17)
[2021-12-10] MEDS: AMITRIPTYLINE 10 MG (ELAVIL) TAB PO SCH (08:17)
[2021-12-10] MEDS: ASCORBIC ACID (VIT C) 500 MG TABLET PO SCH (08:17)
[2021-12-10] MEDS: BENZONATATE 100 MG (TESSALON) CAPSULE PO SCH ×3 (08:17→20:13)
[2021-12-10] MEDS: FLECAINIDE 100 MG (TAMBOCOR) TAB PO SCH ×2 (08:18→20:13)
[2021-12-10] MEDS: PANTOPRAZOLE 40 MG (PROTONIX) TAB PO SCH ×2 (08:20→20:13)
[2021-12-10] MEDS: FERROUS SULF 325 MG (IRON) TAB PO SCH (08:20)
[2021-12-10] MEDS: FOLIC ACID 1 MG TAB PO SCH (08:20)
[2021-12-10] MEDS: MONTELUKAST 10 MG (SINGULAIR) TAB PO SCH (08:20)
[2021-12-10] MEDS: meTOproloL SUCCINATE 50 MG (TOPROL XL) TAB PO SCH (08:20)
[2021-12-10] MEDS: DULoxetine 30 MG (CYMBALTA) CAP PO SCH (08:20)
[2021-12-10 08:40] VITALS: BP 174/81
--- NOTE | 2021-12-10 10:24 | Progress Note - Surgery ---
Subjective Date Seen by a Provider: Dec 10, 2021 Time Seen by a Provider: 09:20 Subjective/Events-last exam Having some nausea. Did not really want to eat. Breathing still not much improved from yesterday. Sitting in chair. No abdominal pain. Denies fever chills chest pain. Transfused 1 prbc yesterday a nd hgb increased appropriately. Objective Exam Vital Signs Date Time Temp Pulse Resp B/P (MAP) Pulse Ox O2 Delivery O2 Flow Rate FiO2 12/10/21 08:40 36.4 73 19 174/81 (112) 97 Nasal Cannula 4.00 12/10/21 08:00 Nasal Cannula 4.00 12/10/21 07:31 97 Nasal Cannula 4.00 12/10/21 07:00 67 12/10/21 03:21 36.4 68 20 143/72 (95) 98 Nasal Cannula 4.00 12/10/21 01:00 64 12/09/21 23:03 36.3 81 20 148/70 (96) 96 Nasal Cannula 4.00 12/09/21 21:20 93 Nasal Cannula 4.00 12/09/21 20:59 Nasal Cannula 4.00 12/09/21 20:02 36.4 69 18 159/77 (104) 94 Nasal Cannula 4.00 12/09/21 19:00 71 12/09/21 18:00 36.0 77 18 142/77 95 Nasal Cannula 4.00 12/09/21 16:09 36.2 67 18 149/79 (102) 98 Nasal Cannula 4.00 12/09/21 15:30 36.2 67 17 149/76 4.00 12/09/21 15:15 35.8 66 17 144/72 Nasal Cannula 4.00 12/09/21 13:00 97 12/09/21 11:41 96 Nasal Cannula 4.00 12/09/21 11:40 36.2 67 20 128/77 (94) 98 Nasal Cannula 4.00 I & O 12/10/21 07:00 Intake Total 2810 ml Balance 2810 ml Capillary Refill : General Appearance: No Apparent Distress, WD/WN, Chronically ill HEENT: PERRL/EOMI, Normal ENT Inspection, Pharynx Normal, Moist Mucous Membranes Neck: Full Range of Motion, Normal Inspection, Non Tender Respiratory: Chest Non Tender, No Accessory Muscle Use, No Respiratory Distress Cardiovascular: Regular Rate, Rhythm, No JVD Gastrointestinal: non tender, soft Extremity: Normal Capillary Refill, Normal Inspection, Normal Range of Motion, Non Tender, No Calf Tenderness, No Pedal Edema Neurologic/Psychiatric: Alert, Oriented x3, No Motor/Sensory Deficits, Depressed Affect Skin: Normal Color, Warm/Dry Lymphatic: No Adenopathy Results Lab Laboratory Tests 12/10/21 05:20: White Blood Count 11.2H, Red Blood Count 2.66L, Hemoglobin 8.2L, Hematocrit 27L, Mean Corpuscular Volume 100H, Mean Corpuscular Hemoglobin 31, Mean Corpuscular Hemoglobin Concent 31L, Red Cell Distribution Width 16.5H, Platelet Count 383, Mean Platelet Volume 10.0, Immature Granulocyte % (Auto) 1, Neutrophils (%) (Auto) 82H, Lymphocytes (%) (Auto) 12, Monocytes (%) (Auto) 4, Eosinophils (%) (Auto) 0, Basophils (%) (Auto) 0, Neutrophils # (Auto) 9.1H, Lymphocytes # (Auto) 1.4, Monocytes # (Auto) 0.5, Eosinophils # (Auto) 0.0, Basophils # (Auto) 0.0, Immature Granulocyte # (Auto) 0.1, Sodium Level 139, Potassium Level 4.1, Chloride Level 101, Carbon Dioxide Level 26, Anion Gap 12, Blood Urea Nitrogen 22H, Creatinine 2.16H, Estimat Glomerular Filtration Rate 25, BUN/Creatinine Ratio 10, Glucose Level 112H, Calcium Level 8.7, Corrected Calcium 9.5, Total Bilirubin 0.8, Aspartate Amino Transf (AST/SGOT) 42H, Alanine Aminotransferase (ALT/SGPT) 35, Alkaline Phosphatase 69, Total Protein 5.6L, Albumin 3.0L Assessment/Plan Assessment/Plan Assessment/Plan anemia GERD Etoh Withdrawal Pneumonia Afib rvr fci anticoagulation patient with anemia 1 prbc yesterday responded appropriately on anticoagulation for Afib Protonix changed to BID/ carafate has not had colonoscopy for greater than 10 years, would recommend egd/colonoscopy inpatient vs outpatient since hgb stable and currently on Eliquis likely outpatient and want respiratory status to improve unless emergent follow hgb transfuse prbc if needed encouraged using IS KEYLA ZELAYA DO Dec 10, 2021 10:24
[2021-12-10 12:00] VITALS: BP 171/82
[2021-12-10 16:11] VITALS: BP 171/87
[2021-12-10] MEDS ORDERED: morphine INJ 4 MG/ML 1 ML (VIAL/SYRINGE) IV PRN (16:30)
[2021-12-10] MEDS: GABAPENTIN 100 MG (NEURONTIN) CAP PO SCH ×2 (17:37→20:13)
--- NOTE | 2021-12-10 17:50 | Cardiology Progress Note ---
Progress Note-Cardiology Events since last exam Date Seen by Provider: Dec 10, 2021 Time Seen by Provider: 17:47 Events since last exam I am following her due to atrial fibrillation. She still has a cough and feels short of breath. She denies chest pain, palpitations, syncope, or ankle edema. Certain portions of this document may have been dictated utilizing voice recognition technology. Inherent to this technology, typographical and grammatical errors may exist. As much as I am diligent to identify and correct these mistakes, some errors may remain in the document. Vitals Last set of Vitals Signs Vital Signs 12/10/21 16:11 Temp 36.4 Pulse 70 Resp 16 B/P (MAP) 171/87 (115) Pulse Ox 97 O2 Delivery Nasal Cannula O2 Flow Rate 4.00 Labs Labs Laboratory Tests 12/10/21 05:20 Exam Vital Signs Vital Signs Date Time Temp Pulse Resp B/P (MAP) Pulse Ox O2 Delivery O2 Flow Rate FiO2 12/10/21 16:11 36.4 70 16 171/87 (115) 97 Nasal Cannula 4.00 Physical Exam General: Alert. No acute distress. Eye: No xanthelasma. HENT: Normocephalic. Neck: Jugular venous pressure does not appear elevated. Respiratory: Lungs are clear to auscultation. Respirations are non-labored. Breath sounds are equal. Symmetrical chest wall expansion. Cardiovascular: Normal rate. Regular rhythm. 2/6 systolic ejection murmur. No gallop. No edema. Gastrointestinal: Soft. Normal bowel sounds. Skin: Warm. Dry. Neurologic: Alert and oriented to person, place, time. Cranial nerves 3-11 grossly intact. Psychiatric: Cooperative. Appropriate mood & affect. Labs Laboratory Tests Test 12/10/21 05:20 Range/Units White Blood Count 11.2 H 4.3-11.0 10^3/uL Red Blood Count 2.66 L 3.80-5.11 10^6/uL Hemoglobin 8.2 L 11.5-16.0 g/dL Hematocrit 27 L 35-52 % Mean Corpuscular Volume 100 H 80-99 fL Mean Corpuscular Hemoglobin 31 25-34 pg Mean Corpuscular Hemoglobin Concent 31 L 32-36 g/dL Red Cell Distribution Width 16.5 H 10.0-14.5 % Platelet Count 383 130-400 10^3/uL Mean Platelet Volume 10.0 9.0-12.2 fL Immature Granulocyte % (Auto) 1 % Neutrophils (%) (Auto) 82 H 42-75 % Lymphocytes (%) (Auto) 12 12-44 % Monocytes (%) (Auto) 4 0-12 % Eosinophils (%) (Auto) 0 0-10 % Basophils (%) (Auto) 0 0-10 % Neutrophils # (Auto) 9.1 H 1.8-7.8 10^3/uL Lymphocytes # (Auto) 1.4 1.0-4.0 10^3/uL Monocytes # (Auto) 0.5 0.0-1.0 10^3/uL Eosinophils # (Auto) 0.0 0.0-0.3 10^3/uL Basophils # (Auto) 0.0 0.0-0.1 10^3/uL Immature Granulocyte # (Auto) 0.1 0.0-0.1 10^3/uL Sodium Level 139 135-145 MMOL/L Potassium Level 4.1 3.6-5.0 MMOL/L Chloride Level 101 98-107 MMOL/L Carbon Dioxide Level 26 21-32 MMOL/L Anion Gap 12 5-14 MMOL/L Blood Urea Nitrogen 22 H 7-18 MG/DL Creatinine 2.16 H 0.60-1.30 MG/DL Estimat Glomerular Filtration Rate 25 BUN/Creatinine Ratio 10 Glucose Level 112 H 70-105 MG/DL Calcium Level 8.7 8.5-10.1 MG/DL Corrected Calcium 9.5 8.5-10.1 MG/DL Total Bilirubin 0.8 0.1-1.0 MG/DL Aspartate Amino Transf (AST/SGOT) 42 H 5-34 U/L Alanine Aminotransferase (ALT/SGPT) 35 0-55 U/L Alkaline Phosphatase 69 40-136 U/L Total Protein 5.6 L 6.4-8.2 GM/DL Albumin 3.0 L 3.2-4.5 GM/DL Diagnosis/Problems Diagnosis/Problems (1) Persistent atrial fibrillation Assessment & Plan: No signs of recurrence on flecainide. She is on beta- tahir for rate control in the event she has recurrent atrial fibrillation and apixaban for stroke prophylaxis. Since she had a blood transfusion, from a cardiac standpoint, I would prefer she have upper and lower endoscopy prior to discharge if possible by general surgery. (2) Primary hypertension Status: Chronic Assessment & Plan: Her blood pressure has been trending upwards. I will incre ase her dose of metoprolol and give her an extra dose today. (3) Aortic stenosis Status: Chronic Assessment & Plan: This has been in a mild range and should not be causing symptoms but will need to be followed. (4) Acute kidney injury Assessment & Plan: Her creatinine went up over the past few days. Exact etiology unclear. She is not receiving diuretic. Apparently pharmacy has determined that Zosyn may have done this and this medication has now been discontinued. We will continue to monitor her creatinine level closely. (5) Anemia Assessment & Plan: Etiology unclear. Her hemoglobin was normal earlier in the month. Some of the anemia could be related to her alcohol abuse. As above, she has now received a blood transfusion. General surgery is following the patient in regards to deciding about inpatient versus outpatient endoscopies. (6) Acute on chronic respiratory failure with hypoxemia Assessment & Plan: Most likely due to pneumonia for which she is being treated. CONI LEWIS JR, MD Dec 10, 2021 17:50
[2021-12-10] MEDS ORDERED: meTOproloL SUCCINATE 50 MG (TOPROL XL) TAB PO NR (18:00)
[2021-12-10] MEDS: DIAZEPAM INJ 10 MG/2 ML (VALIUM) SYR IVP PRN (20:13)
[2021-12-10] MEDS: PRAMIPEXOLE 0.5 MG TAB (MIRAPEX) PO SCH (20:13)
[2021-12-10] MEDS: QUEtiapine 200 MG (SEROquel) TAB IMMEDIATE RELEASE PO SCH (20:14)
[2021-12-10 20:31] VITALS: BP 177/81
[2021-12-10 23:30] VITALS: BP 131/78
[2021-12-11] MEDS: PIPERACILLIN SODIUM/TAZOBACTAM 4.5 GM in NS (IVPB) 100 ML IV SCH ×3 (01:32→17:39)
[2021-12-11] MEDS: RT-ALBUTEROL/IPRATROPIUM 3 ML (DUONEB) VIAL INH PRN (02:56)
[2021-12-11] MEDS: guaiFENesin/DM (ROBITUSSIN DM) 10 ML UDC PO PRN (03:05)
[2021-12-11 04:09] VITALS: BP 160/72
--- NOTE | 2021-12-11 05:10 | Progress Note - Hospitalist ---
Subjective HPI/CC On Admission Date Seen by Provider: Dec 11, 2021 Time Seen by Provider: 05:00 Chief complaint: Pneumonia with acute respiratory failure History of present illness: This is a 61-year-old female who was transferred from [facility] due to shortness of breath 1 day after discharge from a complicated ICU course which included A. fib with RVR status post cardioversion and pneumonia with bacteremia and alcohol withdrawal. She had been discharged to a [facility] for alcohol rehab when she began having shortness of breath so was brought to [facility] found to have significant pneumonia and due to cardiac risk factors she was transferred to higher level care. Currently she is feeling much better. Subjective/Events-last exam Pt had an episode of SOB and Elevated BP Coughing fit also ABG, CXR, Procalcitonin with BNP added to morning labs Overall, wheezing I will initiate Solumedrol in IV Pt extremely complicated and severely debilitated from long standing alcoholism and mental illness Review of Systems General: Fatigue, Malaise Pulmonary: Dyspnea, Cough Objective Exam Vital Signs Vital Signs Date Time Temp Pulse Resp B/P (MAP) Pulse Ox O2 Delivery O2 Flow Rate FiO2 12/11/21 15:46 36.0 66 18 135/76 (95) 98 Nasal Cannula 4.00 Capillary Refill : General Appearance: Anxious, Chronically ill, Mild Distress Respiratory: Accessory Muscle Use, Decreased Breath Sounds Cardiovascular: Tachycardia Neurologic/Psychiatric: Alert, Depressed Affect Results/Procedures Lab Laboratory Tests 12/11/21 05:18 Patient resulted labs reviewed. Assessment/Plan Assessment and Plan Assess & Plan/Chief Complaint Assessment: Pneumonia Hypoxia History of A. fib with RVR status post cardioversion last week Alcohol withdrawal hospital course last week Recent E. coli bacteremia Anemia requiring transfusion 12/09/21 Iron deficiency started on iron infusions Plan: IV antibiotics Supportive care Nebs O2 Singulair Steroids Dr Smith consult Ambulate Transfuse as needed Change steroids back to IV BENY WHEELER DO Dec 11, 2021 05:10
[2021-12-11 05:35] LABS: ABG OXYGEN SATURATION 91 % (94-100); ABG PCO2 48 MMHG (35-45); ABG PH 7.38 (7.37-7.43); ABG PO2 65 MMHG (79-93); ABG TCO2 29.3 MMOL/L (21.0-31.0)
[2021-12-11 05:39] LABS: BASOPHILS # (AUTO) 0.1 10^3/uL (0.0-0.1); BASOPHILS % (AUTO) 0 % (0-10); EOSINOPHILS # (AUTO) 0.1 10^3/uL (0.0-0.3); EOSINOPHILS % (AUTO) 0 % (0-10); HEMATOCRIT 30 % (35-52); HEMOGLOBIN 9.2 g/dL (11.5-16.0); LYMPHOCYTES % (AUTO) 11 % (12-44); MEAN CORPUSCULAR HEMOGLOBIN 31 pg (25-34); MEAN CORPUSCULAR HGB CONC 31 g/dL (32-36); MEAN CORPUSCULAR VOLUME 100 fL (80-99); MEAN PLATELET VOLUME 9.6 fL (9.0-12.2); MONOCYTES # (AUTO) 1.1 10^3/uL (0.0-1.0); MONOCYTES % (AUTO) 6 % (0-12); NEUTROPHILS # (AUTO) 14.7 10^3/uL (1.8-7.8); NEUTROPHILS % (AUTO) 81 % (42-75); PLATELET COUNT 393 10^3/uL (130-400); WHITE BLOOD COUNT 18.1 10^3/uL (4.3-11.0)
[2021-12-11 05:44] LABS: PATIENT TEMP 36.5; VENTILATOR NO
[2021-12-11 05:51] LABS: ALBUMIN 3.4 GM/DL (3.2-4.5)
[2021-12-11 05:52] LABS: POTASSIUM 3.5 MMOL/L (3.6-5.0)
[2021-12-11 05:53] LABS: CALCIUM 9.3 MG/DL (8.5-10.1)
[2021-12-11 05:54] LABS: TOTAL PROTEIN 6.3 GM/DL (6.4-8.2)
[2021-12-11 05:57] LABS: CREATININE SERUM 2.11 MG/DL (0.60-1.30)
[2021-12-11] MEDS: MULTIVIT W/MINERALS TAB (THERAGRAN M) PO SCH (06:31)
[2021-12-11] MEDS: SUCRALFATE 1 GM (CARAFATE) TAB PO SCH ×4 (06:31→19:57)
[2021-12-11] MEDS: KCL 20 MEQ TAB (K-DUR) PO SCH (06:32)
[2021-12-11] MEDS: methylPREDNISolone 40 MG/ML (Solu-MEDROL) VIAL IV SCH ×5 (06:33→23:26)
[2021-12-11] MEDS ORDERED: predniSONE 20 MG TAB PO SCH (07:00)
[2021-12-11 07:52] VITALS: BP 141/65
[2021-12-11] MEDS: SENNA W/DOCUSATE (SENOKOT S) TABLET PO SCH ×2 (08:00→20:56)
[2021-12-11] MEDS: DOCUSATE SODIUM 100 MG (COLACE) CAP PO SCH ×2 (08:00→20:56)
[2021-12-11] MEDS: SENNOSIDES 8.6 MG (SENOKOT) TAB PO SCH ×2 (08:00→20:56)
[2021-12-11] MEDS: LACTULOSE SYRUP 10GM/15ML (ENULOSE) 30ML UDC PO SCH ×2 (08:00→20:56)
[2021-12-11] MEDS: RT-ALBUTEROL SULF 2.5 MG/3 ML PRE-MIX VIAL INH SCH ×2 (08:08→21:10)
[2021-12-11] MEDS: RT--FLUTICASONE/SALMETEROL 113-14 (AIRDUO RespiCLICK) IH SCH ×2 (08:11→21:11)
[2021-12-11] MEDS: PANTOPRAZOLE 40 MG (PROTONIX) TAB PO SCH ×2 (08:36→19:56)
[2021-12-11] MEDS: FLECAINIDE 100 MG (TAMBOCOR) TAB PO SCH ×2 (08:36→19:57)
[2021-12-11] MEDS: GABAPENTIN 100 MG (NEURONTIN) CAP PO SCH ×3 (08:37→19:57)
[2021-12-11] MEDS: MONTELUKAST 10 MG (SINGULAIR) TAB PO SCH (08:37)
[2021-12-11] MEDS: FOLIC ACID 1 MG TAB PO SCH (08:37)
[2021-12-11] MEDS: DULoxetine 30 MG (CYMBALTA) CAP PO SCH (08:37)
[2021-12-11] MEDS: ASCORBIC ACID (VIT C) 500 MG TABLET PO SCH (08:38)
[2021-12-11] MEDS: FERROUS SULF 325 MG (IRON) TAB PO SCH (08:38)
[2021-12-11] MEDS: FLUoxetine HCL 20 MG (PROzac) CAP PO SCH (08:38)
[2021-12-11] MEDS: AMITRIPTYLINE 10 MG (ELAVIL) TAB PO SCH (08:38)
[2021-12-11] MEDS: meTOproloL SUCCINATE 50 MG (TOPROL XL) TAB PO SCH (08:39)
[2021-12-11] MEDS: BENZONATATE 100 MG (TESSALON) CAPSULE PO SCH ×3 (08:39→19:56)
--- NOTE | 2021-12-11 10:22 | Cardiology Progress Note ---
Progress Note-Cardiology Events since last exam Date Seen by Provider: Dec 11, 2021 Time Seen by Provider: 10:17 Events since last exam I am following her due to atrial fibrillation. She feels as though she is sl owly getting better. She denies chest discomfort but after she eats, feels as though there is a lump in her epigastric area. She denies dyspnea at rest, palpitations, or syncope. She has mild ankle edema. She has been ambulating in the hallways with the assistance of staff. Certain portions of this document may have been dictated utilizing voice recognition technology. Inherent to this technology, typographical and grammatical errors may exist. As much as I am diligent to identify and correct these mistakes, some errors may remain in the document. Vitals Last set of Vitals Signs Vital Signs 12/11/21 12/11/21 07:52 08:10 Temp 37.5 Pulse 81 Resp 18 B/P (MAP) 141/65 (90) Pulse Ox 90 O2 Delivery Nasal Cannula O2 Flow Rate 6.00 Labs Labs Laboratory Tests 12/11/21 05:18 Exam Vital Signs Vital Signs Date Time Temp Pulse Resp B/P (MAP) Pulse Ox O2 Delivery O2 Flow Rate FiO2 12/11/21 08:10 90 Nasal Cannula 6.00 12/11/21 07:52 37.5 81 18 141/65 (90) Physical Exam General: Alert. No acute distress. She is obese. Eye: No xanthelasma. HENT: Normocephalic. Neck: Jugular venous pressure does not appear elevated. Respiratory: Lungs are clear to auscultation. Respirations are non-labored. Breath sounds are equal. Symmetrical chest wall expansion. Cardiovascular: Normal rate. Regular rhythm. Distant S1/S2. 2/6 systolic ejection murmur. No gallop. Trace bilateral pretibial edema. Gastrointestinal: Soft. Normal bowel sounds. Skin: Warm. Dry. Neurologic: Alert and oriented to person, place, time. Cranial nerves 3-11 grossly intact. Psychiatric: Cooperative. Appropriate mood & affect. Labs Laboratory Tests Test 12/11/21 05:18 12/11/21 05:26 Range/Units White Blood Count 18.1 H 4.3-11.0 10^3/uL Red Blood Count 2.98 L 3.80-5.11 10^6/uL Hemoglobin 9.2 L 11.5-16.0 g/dL Hematocrit 30 L 35-52 % Mean Corpuscular Volume 100 H 80-99 fL Mean Corpuscular Hemoglobin 31 25-34 pg Mean Corpuscular Hemoglobin Concent 31 L 32-36 g/dL Red Cell Distribution Width 16.7 H 10.0-14.5 % Platelet Count 393 130-400 10^3/uL Mean Platelet Volume 9.6 9.0-12.2 fL Immature Granulocyte % (Auto) 1 % Neutrophils (%) (Auto) 81 H 42-75 % Lymphocytes (%) (Auto) 11 L 12-44 % Monocytes (%) (Auto) 6 0-12 % Eosinophils (%) (Auto) 0 0-10 % Basophils (%) (Auto) 0 0-10 % Neutrophils # (Auto) 14.7 H 1.8-7.8 10^3/uL Lymphocytes # (Auto) 2.0 1.0-4.0 10^3/uL Monocytes # (Auto) 1.1 H 0.0-1.0 10^3/uL Eosinophils # (Auto) 0.1 0.0-0.3 10^3/uL Basophils # (Auto) 0.1 0.0-0.1 10^3/uL Immature Granulocyte # (Auto) 0.2 H 0.0-0.1 10^3/uL Sodium Level 140 135-145 MMOL/L Potassium Level 3.5 L 3.6-5.0 MMOL/L Chloride Level 101 98-107 MMOL/L Carbon Dioxide Level 26 21-32 MMOL/L Anion Gap 13 5-14 MMOL/L Blood Urea Nitrogen 20 H 7-18 MG/DL Creatinine 2.11 H 0.60-1.30 MG/DL Estimat Glomerular Filtration Rate 26 BUN/Creatinine Ratio 9 Glucose Level 78 70-105 MG/DL Calcium Level 9.3 8.5-10.1 MG/DL Corrected Calcium 9.8 8.5-10.1 MG/DL Total Bilirubin 1.0 0.1-1.0 MG/DL Aspartate Amino Transf (AST/SGOT) 30 5-34 U/L Alanine Aminotransferase (ALT/SGPT) 34 0-55 U/L Alkaline Phosphatase 67 40-136 U/L B-Type Natriuretic Peptide 1489.9 H <100.0 PG/ML Total Protein 6.3 L 6.4-8.2 GM/DL Albumin 3.4 3.2-4.5 GM/DL Procalcitonin 0.12 H <0.10 NG/ML Blood Gas Puncture Site RIGHT RADIAL Blood Gas Patient Temperature 36.5 Arterial Blood pH 7.38 7.37-7.43 Arterial Blood Partial Pressure CO2 48 H 35-45 MMHG Arterial Blood Partial Pressure O2 65 L 79-93 MMHG Arterial Blood HCO3 28 H 23-27 MMOL/L Arterial Blood Total CO2 29.3 21.0-31.0 MMOL/L Arterial Blood Oxygen Saturation 91 L 94-100 % Arterial Blood Base Excess 3.0 H -2.5-2.5 MMOL/L Ambrose Test UNKNOWN Blood Gas Ventilator Setting NO Blood Gas Inspired Oxygen 93% Diagnosis/Problems Diagnosis/Problems (1) Persistent atrial fibrillation Assessment & Plan: No signs of recurrence on flecainide. She is on beta- tahir for rate control in the event she has recurrent atrial fibrillation and apixaban for stroke prophylaxis. Since she had a blood transfusion, her hemoglobin level now appears to be coming up. She has been taking iron tablets at home. At this point, from a cardiac standpoint, we can probably hold off on endoscopies until after discharge. I will lower the dose of flecainide to 100 mg twice daily. I will discontinue telemetry. (2) Primary hypertension Status: Chronic Assessment & Plan: Blood pressures have improved on the higher dose of metoprolol. (3) Aortic stenosis Status: Chronic Assessment & Plan: This has been in a mild range and should not be causing symptoms but will need to be followed. (4) Acute kidney injury Assessment & Plan: Her creatinine went up while she was receiving intravenous antibiotics for the pneumonia but has now stabilized although is higher than she was in the past. Exact etiology unclear. Apparently pharmacy has determined that Zosyn may have done this and this medication has now been discontinued. We will continue to monitor her creatinine level closely. (5) Anemia Assessment & Plan: Etiology unclear. Her hemoglobin was normal mid November. some of the anemia could be related to her alcohol abuse. As above, she has now received 1 blood transfusion. General surgery is following the patient in regards to deciding about inpatient versus outpatient endoscopies. I will give her 1 iron infusion. (6) Acute on chronic respiratory failure with hypoxemia Assessment & Plan: Most likely due to pneumonia for which she is being treated. (7) Alcohol dependence Status: Chronic Assessment & Plan: She is planning to go back to an inpatient alcohol rehabilitation facility following discharge. CONI LEWIS JR, MD Dec 11, 2021 10:22
--- NOTE | 2021-12-11 10:29 | Diagnostic Imaging Report ---
Indication: Dyspnea, followup pneumonia. Comparison: 12/07/2021. Discussion: Single portable upright view of the chest was obtained. Low lung volumes. Cardiomegaly is stable. Slightly improved aeration of the left mid to lower lung. Stable severe consolidation within the right lung. Right effusion with fluid tracking along the right major fissure is slightly increased. No pneumothorax or osseous abnormality. Impression: 1. Bilateral pulmonary consolidation, stable on the right and decreased on the left. 2. Enlarging right effusion. Dictated by: Dictated on workstation # [id number]
[2021-12-11] MEDS: IRON SUCROSE 200 MG/10 ML (VENOFER) VIAL IV NR (10:37)
--- NOTE | 2021-12-11 11:17 | Progress Note - Surgery ---
Subjective Date Seen by a Provider: Dec 11, 2021 Time Seen by a Provider: 09:04 Subjective/Events-last exam Breathing worse today. Not feeling well. Hgb improving. No nasuea or emesis. No abdominal pain. Alphonso n/v fever sweats chills or chest pain. Increasing need for O2 by nasal canula. Objective Exam Vital Signs Date Time Temp Pulse Resp B/P (MAP) Pulse Ox O2 Delivery O2 Flow Rate FiO2 12/11/21 08:10 90 Nasal Cannula 6.00 12/11/21 08:00 Nasal Cannula 6.00 12/11/21 07:52 37.5 81 18 141/65 (90) 95 Nasal Cannula 5.00 12/11/21 07:00 80 12/11/21 04:09 160/72 (101) 12/11/21 04:03 93 Nasal Cannula 6.00 12/11/21 04:00 89 Nasal Cannula 5.00 12/11/21 03:02 36.5 81 22 94 Nasal Cannula 5.00 12/11/21 03:00 94 Nasal Cannula 5.00 12/11/21 02:56 94 Nasal Cannula 5.00 12/11/21 02:49 89 Nasal Cannula 4.00 12/11/21 02:48 88 Nasal Cannula 3.00 12/11/21 01:00 66 12/10/21 23:30 36.3 66 20 131/78 (95) 94 Nasal Cannula 3.00 12/10/21 21:51 98 Nasal Cannula 4.00 12/10/21 20:31 36.2 80 18 177/81 (113) 93 Nasal Cannula 4.00 12/10/21 20:15 Nasal Cannula 4.00 12/10/21 19:00 71 12/10/21 16:11 36.4 70 16 171/87 (115) 97 Nasal Cannula 4.00 12/10/21 12:36 79 12/10/21 12:00 36.1 70 18 171/82 (111) 96 Nasal Cannula 4.00 I & O 12/11/21 07:00 Intake Total 2100 ml Balance 2100 ml Capillary Refill : General Appearance: No Apparent Distress, WD/WN, Chronically ill, Obese HEENT: PERRL/EOMI, Normal ENT Inspection, Pharynx Normal, Moist Mucous Membranes Neck: Full Range of Motion, Normal Inspection, Non Tender Respiratory: Chest Non Tender, No Accessory Muscle Use, No Respiratory Distress Cardiovascular: Regular Rate, Rhythm Gastrointestinal: non tender, soft Extremity: Normal Capillary Refill, Normal Inspection, Normal Range of Motion, Non Tender, No Calf Tenderness, No Pedal Edema Neurologic/Psychiatric: Alert, Oriented x3, No Motor/Sensory Deficits, D epressed Affect Skin: Normal Color, Warm/Dry Lymphatic: No Adenopathy Results Lab Laboratory Tests 12/11/21 05:18: White Blood Count 18.1H, Red Blood Count 2.98L, Hemoglobin 9.2L, Hematocrit 30L, Mean Corpuscular Volume 100H, Mean Corpuscular Hemoglobin 31, Mean Corpuscular Hemoglobin Concent 31L, Red Cell Distribution Width 16.7H, Platelet Count 393, Mean Platelet Volume 9.6, Immature Granulocyte % (Auto) 1, Neutrophils (%) (Auto) 81H, Lymphocytes (%) (Auto) 11L, Monocytes (%) (Auto) 6, Eosinophils (%) (Auto) 0, Basophils (%) (Auto) 0, Neutrophils # (Auto) 14.7H, Lymphocytes # (Auto) 2.0, Monocytes # (Auto) 1.1H, Eosinophils # (Auto) 0.1, Basophils # (Auto) 0.1, Immature Granulocyte # (Auto) 0.2H, Sodium Level 140, Potassium Level 3.5L, Chloride Level 101, Carbon Dioxide Level 26, Anion Gap 13, Blood Urea Nitrogen 20H, Creatinine 2.11H, Estimat Glomerular Filtration Rate 26, BUN/Creatinine Ratio 9, Glucose Level 78, Calcium Level 9.3, Corrected Calcium 9.8, Total Bilirubin 1.0, Aspartate Amino Transf (AST/SGOT) 30, Alanine Aminotransferase (ALT/SGPT) 34, Alkaline Phosphatase 67, B-Type Natriuretic Peptide 1489.9H, Total Protein 6.3L, Albumin 3.4, Procalcitonin 0.12H 12/11/21 05:26: Blood Gas Puncture Site RIGHT RADIAL, Blood Gas Patient Temperature 36.5, Arterial Blood pH 7.38, Arterial Blood Partial Pressure CO2 48H, Arterial Blood Partial Pressure O2 65L, Arterial Blood HCO3 28H, Arterial Blood Total CO2 29.3, Arterial Blood Oxygen Saturation 91L, Arterial Blood Base Excess 3.0H, Ambrose Test UNKNOWN, Blood Gas Ventilator Setting NO, Blood Gas Inspired Oxygen 93% Assessment/Plan Assessment/Plan Assessment/Plan anemia GERD Etoh Withdrawal Pneumonia Afib rvr mcfp anticoagulation hgb improving worsening breathing, chest x ray this am. on anticoagulation for Afib Protonix changed to BID/ carafate has not had colonoscopy for greater than 10 years, would recommend egd/colonoscopy inpatient vs outpatient since hgb stable and currently on Eliqu is likely outpatient and want respiratory status to improve unless emergent follow hgb transfuse prbc if needed encouraged using IS KEYLA ZELAYA DO Dec 11, 2021 11:17
[2021-12-11] MEDS: LOPERAMIDE SUSP 2 MG/15 ML (IMODIUM) UDC PO PRN (11:19)
--- NOTE | 2021-12-11 11:27 | Physical Therapy Evaluation ---
PT Evaluation-General Medical Diagnosis Admission Date Dec 04, 2021 at 10:12 Medical Diagnosis: sepsis, pneumonia Onset Date: Nov 25, 2021 Therapy Diagnosis Therapy Diagnosis: Gait deficit Precautions Precautions/Isolations: Fall Prevention, Standard Precautions Weight Bear Status Right Lower Extremity: Right Full Weight Bearing Left Lower Extremity: Left Full Weight Bearing Referral Physician: Dr. Biggs Reason for Referral: Evaluation/Treatment Medical History Pertinent Medical History: Atrial Fib, Alcoholism, COPD, HTN Reviewed History: Yes Social History Home: Apartment Current Living Status: Alone Entry Into Home: Elevator Prior Prior Level of Function SCALE: Activities may be completed with or without assistive devices. 3-Hwompxbecl-dmnjfvr completes the activity by him/herself with no assistance from a helper. 5-Set-up or Clean-up Assistance-helper sets up or cleans up; patient completes activity. [place] assists only prior to or following the activity. 4-Supervision or Touching Assistance-helper provides verbal cues and/or touching/steadying and/or contact guard assistance as patient completes activity. Assistance may be provided throughout the activity or intermittently. 3-Partial/Moderate Assistance-helper does LESS THAN HALF the effort. [place] lifts, holds or supports trunk or limbs, but provides less than half the effort. 2-Substantial/Maximal Assistance-helper does MORE THAN HALF the effort. [place] lifts or holds trunk or limbs and provides more than half the effort. 3-Wcprjgnxv-zwosqz does ALL the effort. Patient does none of the effort to complete the activity. Or, the assistance of 2 or more helpers is required for the patient to complete the activity. If activity was not attempted, code reason: 7-Patient Refused. 9-Not Applicable-not attempted and the patient did not perform the activity b efore the current illness, exacerbation or injury. 10-Not Attempted due to Environmental Limitations-(lack of equipment, weather restraints, etc.). 88-Not Attempted due to Medical Conditions or Safety Concerns. Bed Mobility: 6 Transfers (B,C,W/C): 6 Gait: 6 Stairs: 6 Indoor Mobility (Ambulation): Independent Stairs: Independent Prior Devices Use: None Prior Device Use: Pt did admit to furniture/wall walking PT Evaluation-Current Subjective Patient sitting in bed upon PT arrival, agreeable to evaluation. Rates pain currently at 0/10 Objective Patient Orientation: Person, Place, Time, Situation Attachments: Oxygen ROM/Strength ROM Lower Extremities WFLs bilaterally all planes Strength Lower Extremities 4/5 bilaterally all planes Sensory Vision: Functional Hearing: Functional Sensation Right Lower Extremit: Intact Sensation Left Lower Extremity: Intact Transfers Roll Left to Right (QC): 6 Sit to Lying (QC): 6 Lying to Sitting/Side of Bed(Q: 6 Sit to Stand (QC): 6 Chair/Ext-cc-Tniqq Xfer(QC): 6 Toilet Transfer (QC): 6 Gait Does the Patient Walk?: Yes Mode of Locomotion: Walk Anticipated Mode of Locomotion: Walk Walk 10 feet (QC): 4 Walk 50 ft with 2 Turns(QC): 4 Walk 150 ft (QC): 4 Distance: 450 Gait Assistive Device: None Comments/Gait Description Would benefit from assist with O2 tank, however independent with gait and assistance can come from [employer] Balance Sitting Static: Normal Sitting Dynamic: Normal Standing Static: Normal Standing Dynamic: Normal Assessment/Needs Patient up ad anthony in the room. Patient independent with all bed mobility and transfers. Patient ambulates 450 feet with no AD and only assistance for O2 tank. Patient is not appropriate for PT services at this time. She was encouraged to get out of bed as often as possible and ambulate with nursing. Patient in bed post treatment with all needs met, nursing notified, call light in hand. Rehab Potential: Good PT Grocery Shopper Goals Shelter Goals PT Grocery Shopper Goals Time Frame: Dec 11, 2021 Roll Left & Right (QC): 6 Sit to Lying (QC): 6 Lying-Sitting on Side/Bed(QC): 6 Sit to Stand (QC): 6 Chair/Mri-gp-Gduyo Xfer(QC): 6 Toilet Transfer (QC): 6 Car Transfer (QC): 6 Does the Patient Walk: Yes Walk 10 feet (QC): 6 Walk 50ft with 2 Turns (QC): 6 Walk 150 ft (QC): 6 Walking 10ft on Uneven Surface: 6 1 Step (curb) (QC): 6 4 Steps (QC): 9 12 Steps (QC): 9 Picking up an Object (QC): 6 Does the Pt use WC or Scooter?: No Wheel 50 feet with 2 turns (QC: 9 Wheel 150 feet: 9 Type: N/A (9) PT Plan Treatment/Plan Treatment Plan: Discontinue PT Treatment Plan: Education, Functional Activity Tian, Functional Strength, Gait, Safety, Therapeutic Exercise, Transfers Treatment Duration: Dec 11, 2021 Frequency: Estimated Hrs Per Day: Other Patient and/or Family Agrees t: Yes Safety Risks/Education Patient Education: Gait Training Teaching Recipient: Patient Teaching Methods: Demonstration, Discussion Response to Teaching: Verbalize Understanding, Return Demonstration Time/GCodes Time In: 1026 Time Out: 1036 Total Billed Treatment Time: 10 Total Billed Treatment Visit, REE Kelsey PT Dec 11, 2021 11:27
[2021-12-11 12:00] VITALS: BP 150/70
[2021-12-11 15:46] VITALS: BP 135/76
[2021-12-11] MEDS: PRAMIPEXOLE 0.5 MG TAB (MIRAPEX) PO SCH (19:56)
[2021-12-11] MEDS: QUEtiapine 200 MG (SEROquel) TAB IMMEDIATE RELEASE PO SCH (19:57)
[2021-12-11] MEDS: MELATONIN 3 MG TABLET PO PRN (19:57)
[2021-12-11 20:11] VITALS: BP 153/98
[2021-12-11 23:53] VITALS: BP 152/84
[2021-12-12] MEDS: PIPERACILLIN SODIUM/TAZOBACTAM 4.5 GM in NS (IVPB) 100 ML IV SCH ×3 (01:41→17:48)
[2021-12-12 03:42] VITALS: BP 156/90
--- NOTE | 2021-12-12 05:28 | Progress Note - Hospitalist ---
Subjective HPI/CC On Admission Date Seen by Provider: Dec 12, 2021 Chief complaint: Pneumonia with acute respiratory failure History of present illness: This is a 61-year-old female who was transferred from [facility] due to shortness of breath 1 day after discharge from a complicated ICU course which included A. fib with RVR status post cardioversion and pneumonia with bacteremia and alcohol withdrawal. She had been discharged to a [facility] for alcohol rehab when she began having shortness of breath so was brought to [facility] found to have significant pneumonia and due to cardiac risk factors she was transferred to higher level care. Currently she is feeling much better. Subjective/Events-last exam Patient doing well More shortness of breath IV steroids required Patient reports she had just obtained oxygen supplementation 1 month prior to decline of status requiring ICU care Severe COPD suspected and untreated sleep apnea Review of Systems General: Fatigue, Malaise Pulmonary: Dyspnea Objective Exam Vital Signs Vital Signs Date Time Temp Pulse Resp B/P (MAP) Pulse Ox O2 Delivery O2 Flow Rate FiO2 12/12/21 14:42 99 Nasal Cannula 5.00 12/12/21 12:20 36.1 65 17 146/74 (98) Capillary Refill : General Appearance: No Apparent Distress, WD/WN, Chronically ill, Obese Respiratory: Lungs Clear, Normal Breath Sounds Cardiovascular: Regular Rate, Rhythm Neurologic/Psychiatric: Alert, Oriented x3 Results/Procedures Lab Laboratory Tests 12/12/21 05:28 Patient resulted labs reviewed. Assessment/Plan Assessment and Plan Assess & Plan/Chief Complaint Assessment: Pneumonia Hypoxia History of A. fib with RVR status post cardioversion last week Alcohol withdrawal hospital course last week Recent E. coli bacteremia Anemia requiring transfusion 12/09/21 Iron deficiency started on iron infusions Exacerbation of COPD Plan: IV antibiotics Supportive care Nebs O2 Singulair Steroids Dr Smith consult Ambulate Transfuse as needed Change steroids back to IV BENY WHEELER DO Dec 12, 2021 05:28
[2021-12-12 05:54] LABS: BASOPHILS % (AUTO) 0 % (0-10); EOSINOPHILS % (AUTO) 0 % (0-10); HEMATOCRIT 30 % (35-52); HEMOGLOBIN 8.9 g/dL (11.5-16.0); LYMPHOCYTES # (AUTO) 0.9 10^3/uL (1.0-4.0); LYMPHOCYTES % (AUTO) 9 % (12-44); MEAN CORPUSCULAR HEMOGLOBIN 31 pg (25-34); MEAN CORPUSCULAR HGB CONC 30 g/dL (32-36); MEAN CORPUSCULAR VOLUME 102 fL (80-99); MEAN PLATELET VOLUME 9.8 fL (9.0-12.2); MONOCYTES # (AUTO) 0.3 10^3/uL (0.0-1.0); MONOCYTES % (AUTO) 3 % (0-12); NEUTROPHILS # (AUTO) 9.3 10^3/uL (1.8-7.8); NEUTROPHILS % (AUTO) 88 % (42-75); PLATELET COUNT 332 10^3/uL (130-400); WHITE BLOOD COUNT 10.6 10^3/uL (4.3-11.0)
[2021-12-12] MEDS: SUCRALFATE 1 GM (CARAFATE) TAB PO SCH ×4 (06:02→19:47)
[2021-12-12] MEDS: KCL 20 MEQ TAB (K-DUR) PO SCH (06:02)
[2021-12-12] MEDS: MULTIVIT W/MINERALS TAB (THERAGRAN M) PO SCH (06:02)
[2021-12-12] MEDS: LOPERAMIDE SUSP 2 MG/15 ML (IMODIUM) UDC PO PRN (06:02)
[2021-12-12 06:03] LABS: ALBUMIN 3.3 GM/DL (3.2-4.5); POTASSIUM 3.9 MMOL/L (3.6-5.0)
[2021-12-12] MEDS: methylPREDNISolone 40 MG/ML (Solu-MEDROL) VIAL IV SCH ×4 (06:03→23:30)
[2021-12-12 06:05] LABS: CALCIUM 9.2 MG/DL (8.5-10.1)
[2021-12-12 06:08] LABS: BILIRUBIN,TOTAL 0.7 MG/DL (0.1-1.0)
[2021-12-12 06:09] LABS: CREATININE SERUM 2.07 MG/DL (0.60-1.30)
[2021-12-12] MEDS: RT-ALBUTEROL SULF 2.5 MG/3 ML PRE-MIX VIAL INH SCH ×4 (06:51→22:00)
[2021-12-12] MEDS: RT--FLUTICASONE/SALMETEROL 113-14 (AIRDUO RespiCLICK) IH SCH ×2 (06:52→23:18)
[2021-12-12] MEDS: LACTULOSE SYRUP 10GM/15ML (ENULOSE) 30ML UDC PO SCH ×2 (07:34→22:20)
[2021-12-12] MEDS: SENNA W/DOCUSATE (SENOKOT S) TABLET PO SCH ×2 (07:34→22:20)
[2021-12-12] MEDS: DOCUSATE SODIUM 100 MG (COLACE) CAP PO SCH ×2 (07:34→22:20)
[2021-12-12] MEDS: SENNOSIDES 8.6 MG (SENOKOT) TAB PO SCH ×2 (07:35→22:20)
[2021-12-12 08:06] VITALS: BP 146/70
[2021-12-12] MEDS: IRON SUCROSE 200 MG/10 ML (VENOFER) VIAL IV NR (09:44)
[2021-12-12] MEDS: FLECAINIDE 100 MG (TAMBOCOR) TAB PO SCH ×2 (09:46→19:47)
[2021-12-12] MEDS: FLUoxetine HCL 20 MG (PROzac) CAP PO SCH (09:46)
[2021-12-12] MEDS: MONTELUKAST 10 MG (SINGULAIR) TAB PO SCH (09:46)
[2021-12-12] MEDS: ASCORBIC ACID (VIT C) 500 MG TABLET PO SCH (09:46)
[2021-12-12] MEDS: FERROUS SULF 325 MG (IRON) TAB PO SCH (09:47)
[2021-12-12] MEDS: FOLIC ACID 1 MG TAB PO SCH (09:47)
[2021-12-12] MEDS: GABAPENTIN 100 MG (NEURONTIN) CAP PO SCH ×3 (09:47→19:47)
[2021-12-12] MEDS: PANTOPRAZOLE 40 MG (PROTONIX) TAB PO SCH ×2 (09:47→19:47)
[2021-12-12] MEDS: BENZONATATE 100 MG (TESSALON) CAPSULE PO SCH ×3 (09:47→19:47)
[2021-12-12] MEDS: meTOproloL SUCCINATE 50 MG (TOPROL XL) TAB PO SCH (09:47)
[2021-12-12] MEDS: AMITRIPTYLINE 10 MG (ELAVIL) TAB PO SCH (09:47)
[2021-12-12] MEDS: DULoxetine 30 MG (CYMBALTA) CAP PO SCH (09:47)
--- NOTE | 2021-12-12 11:49 | Progress Note - Surgery ---
Subjective Date Seen by a Provider: Dec 12, 2021 Time Seen by a Provider: 11:45 Subjective/Events-last exam Breathing slightly improved. Ambulated in halls a little bit today. Slightly decreasing O2 nasal canula needs. Improving nausea. No abdominal pain. Denies fever sweats chills or chest pain. Hgb stable. Objective Exam Vital Signs Date Time Temp Pulse Resp B/P (MAP) Pulse Ox O2 Delivery O2 Flow Rate FiO2 12/12/21 11:15 100 Nasal Cannula 5.00 12/12/21 08:06 36.1 81 18 146/70 (95) 95 Nasal Cannula 4.00 12/12/21 08:00 Nasal Cannula 6.00 12/12/21 06:53 93 Nasal Cannula 5.00 12/12/21 03:42 36.1 65 18 156/90 (112) 95 Nasal Cannula 4.00 12/11/21 23:53 35.8 62 16 152/84 (106) 96 Nasal Cannula 4.00 12/11/21 21:11 95 Nasal Cannula 5.00 12/11/21 20:11 36.1 71 20 153/98 (116) 97 Nasal Cannula 4.00 12/11/21 20:00 Nasal Cannula 6.00 12/11/21 15:46 36.0 66 18 135/76 (95) 98 Nasal Cannula 4.00 12/11/21 12:00 35.4 69 18 150/70 (96) 95 Nasal Cannula 6.00 I & O 12/12/21 07:00 Intake Total 1500 ml Balance 1500 ml Capillary Refill : General Appearance: No Apparent Distress, Anxious, Chronically ill HEENT: PERRL/EOMI, Normal ENT Inspection, Moist Mucous Membranes Neck: Full Range of Motion, Normal Inspection, Non Tender Respiratory: Chest Non Tender, No Respiratory Distress, Accessory Muscle Use, Decreased Breath Sounds Cardiovascular: Regular Rate, Rhythm, No JVD Gastrointestinal: non tender, soft Extremity: Normal Capillary Refill, Normal Inspection, Normal Range of Motion, Non Tender, No Calf Tenderness, No Pedal Edema Neurologic/Psychiatric: Alert, Oriented x3, Normal Mood/Affect Skin: Normal Color, Warm/Dry Lymphatic: No Adenopathy Results Lab Laboratory Tests 12/12/21 05:28: White Blood Count 10.6, Red Blood Count 2.90L, Hemoglobin 8.9L, Hematocrit 30L, Mean Corpuscular Volume 102H, Mean Corpuscular Hemoglobin 31, Mean Corpuscular Hemoglobin Concent 30L, Red Cell Distribution Width 16.2H, Platelet Count 332, Mean Platelet Volume 9.8, Immature Granulocyte % (Auto) 1, Neutrophils (%) (Auto) 88H, Lymphocytes (%) (Auto) 9L, Monocytes (%) (Auto) 3, Eosinophils (%) (Auto) 0, Basophils (%) (Auto) 0, Neutrophils # (Auto) 9.3H, Lymphocytes # (Auto) 0.9L, Monocytes # (Auto) 0.3, Eosinophils # (Auto) 0.0, Basophils # (Auto) 0.0, Immature Granulocyte # (Auto) 0.1, Sodium Level 139, Potassium Level 3.9, Chloride Level 103, Carbon Dioxide Level 24, Anion Gap 12, Blood Urea Nitrogen 21H, Creatinine 2.07H, Estimat Glomerular Filtration Rate 27, BUN/Creatinine Ratio 10, Glucose Level 184H, Calcium Level 9.2, Corrected Calcium 9.8, Total Bilirubin 0.7, Aspartate Amino Transf (AST/SGOT) 17, Alanine Aminotransferase (ALT/SGPT) 24, Alkaline Phosphatase 58, Total Protein 6.0L, Albumin 3.3 Assessment/Plan Assessment/Plan Assessment/Plan anemia GERD Etoh Withdrawal Pneumonia Afib rvr mcc anticoagulation hgb stable slightly improved breathing on anticoagulation for Afib Protonix BID/ carafate has not had colonoscopy for greater than 10 years, would recommend egd/colonoscopy inpatient vs outpatient since hgb stable and currently on Eliquis likely outpatient and want respiratory status to improve unless emergent follow hgb transfuse prbc if needed encouraged using IS, patient ambulating some KEYLA ZELAYA DO Dec 12, 2021 11:49
[2021-12-12 12:20] VITALS: BP 146/74
[2021-12-12 15:52] VITALS: BP 129/74
[2021-12-12] MEDS: PRAMIPEXOLE 0.5 MG TAB (MIRAPEX) PO SCH (19:46)
[2021-12-12] MEDS: MELATONIN 3 MG TABLET PO PRN (19:46)
[2021-12-12] MEDS: QUEtiapine 200 MG (SEROquel) TAB IMMEDIATE RELEASE PO SCH (19:47)
[2021-12-12 20:11] VITALS: BP 153/91
[2021-12-12 23:42] VITALS: BP 157/76
[2021-12-13] MEDS: PIPERACILLIN SODIUM/TAZOBACTAM 4.5 GM in NS (IVPB) 100 ML IV SCH ×3 (01:57→17:40)
[2021-12-13 04:23] VITALS: BP 136/74
--- NOTE | 2021-12-13 05:33 | Progress Note - Hospitalist ---
Subjective HPI/CC On Admission Date Seen by Provider: Dec 13, 2021 Time Seen by Provider: 05:30 Chief complaint: Pneumonia with acute respiratory failure History of present illness: This is a 61-year-old female who was transferred from [facility] due to shortness of breath 1 day after discharge from a complicated ICU course which included A. fib with RVR status post cardioversion and pneumonia with bacteremia and alcohol withdrawal. She had been discharged to a [facility] for alcohol rehab when she began having shortness of breath so was brought to [facility] found to have significant pneumonia and due to cardiac risk factors she was transferred to higher level care. Currently she is feeling much better. Subjective/Events-last exam Patient doing a lot better IV steroids have made a big change Able to ambulate alone Patient doing really well overall Review of Systems General: Fatigue, Malaise Pulmonary: Dyspnea Objective Exam Vital Signs Vital Signs Date Time Temp Pulse Resp B/P (MAP) Pulse Ox O2 Delivery O2 Flow Rate FiO2 12/13/21 11:48 36.1 67 20 157/75 (102) 98 Nasal Cannula 3.00 Capillary Refill : General Appearance: No Apparent Distress, WD/WN, Chronically ill, Obese Respiratory: Lungs Clear, Normal Breath Sounds, Decreased Breath Sounds Cardiovascular: Regular Rate, Rhythm Neurologic/Psychiatric: Alert, Oriented x3, Depressed Affect Results/Procedures Lab Laboratory Tests 12/13/21 05:47 Patient resulted labs reviewed. Assessment/Plan Assessment and Plan Assess & Plan/Chief Complaint Assessment: Pneumonia Hypoxia History of A. fib with RVR status post cardioversion last week Alcohol withdrawal hospital course last week Recent E. coli bacteremia Anemia requiring transfusion 12/09/21 Iron deficiency started on iron infusions Exacerbation of COPD Plan: IV antibiotics Supportive care Nebs O2 Singulair Steroids Dr Smith consult Ambulate Transfuse as needed Change steroids back to IV BENY WHEELER DO Dec 13, 2021 05:32
[2021-12-13] MEDS: SUCRALFATE 1 GM (CARAFATE) TAB PO SCH ×4 (05:51→19:38)
[2021-12-13] MEDS: KCL 20 MEQ TAB (K-DUR) PO SCH (05:51)
[2021-12-13] MEDS: MULTIVIT W/MINERALS TAB (THERAGRAN M) PO SCH (05:51)
[2021-12-13] MEDS: methylPREDNISolone 40 MG/ML (Solu-MEDROL) VIAL IV SCH ×4 (05:51→23:14)
[2021-12-13 05:54] LABS: BASOPHILS % (AUTO) 0 % (0-10); EOSINOPHILS % (AUTO) 0 % (0-10); HEMATOCRIT 29 % (35-52); LYMPHOCYTES # (AUTO) 0.9 10^3/uL (1.0-4.0); LYMPHOCYTES % (AUTO) 7 % (12-44); MEAN CORPUSCULAR HEMOGLOBIN 31 pg (25-34); MEAN CORPUSCULAR HGB CONC 31 g/dL (32-36); MEAN CORPUSCULAR VOLUME 101 fL (80-99); MEAN PLATELET VOLUME 9.9 fL (9.0-12.2); MONOCYTES # (AUTO) 0.5 10^3/uL (0.0-1.0); MONOCYTES % (AUTO) 4 % (0-12); NEUTROPHILS # (AUTO) 12.1 10^3/uL (1.8-7.8); NEUTROPHILS % (AUTO) 88 % (42-75); PLATELET COUNT 321 10^3/uL (130-400); WHITE BLOOD COUNT 13.7 10^3/uL (4.3-11.0)
[2021-12-13 06:04] LABS: ALBUMIN 3.4 GM/DL (3.2-4.5)
[2021-12-13 06:05] LABS: POTASSIUM 3.7 MMOL/L (3.6-5.0)
[2021-12-13 06:06] LABS: CALCIUM 9.2 MG/DL (8.5-10.1)
[2021-12-13 06:07] LABS: TOTAL PROTEIN 6.1 GM/DL (6.4-8.2)
[2021-12-13 06:09] LABS: BILIRUBIN,TOTAL 0.7 MG/DL (0.1-1.0)
[2021-12-13 06:11] LABS: CREATININE SERUM 2.07 MG/DL (0.60-1.30)
[2021-12-13 07:19] VITALS: BP 159/53
[2021-12-13] MEDS: RT--FLUTICASONE/SALMETEROL 113-14 (AIRDUO RespiCLICK) IH SCH (07:40)
[2021-12-13] MEDS: RT-ALBUTEROL SULF 2.5 MG/3 ML PRE-MIX VIAL INH SCH ×4 (07:40→18:11)
[2021-12-13] MEDS: LACTOBACILLUS ACIDOPHILUS (PROBIOTIC) CAPSULE PO SCH ×3 (07:48→17:40)
[2021-12-13] MEDS: FLUoxetine HCL 20 MG (PROzac) CAP PO SCH (08:30)
[2021-12-13] MEDS: meTOproloL SUCCINATE 50 MG (TOPROL XL) TAB PO SCH (08:30)
[2021-12-13] MEDS: FERROUS SULF 325 MG (IRON) TAB PO SCH (08:30)
[2021-12-13] MEDS: FOLIC ACID 1 MG TAB PO SCH (08:31)
[2021-12-13] MEDS: DULoxetine 30 MG (CYMBALTA) CAP PO SCH (08:31)
[2021-12-13] MEDS: LACTULOSE SYRUP 10GM/15ML (ENULOSE) 30ML UDC PO SCH ×2 (08:31→19:10)
[2021-12-13] MEDS: FLECAINIDE 100 MG (TAMBOCOR) TAB PO SCH ×2 (08:31→19:38)
[2021-12-13] MEDS: MONTELUKAST 10 MG (SINGULAIR) TAB PO SCH (08:31)
[2021-12-13] MEDS: GABAPENTIN 100 MG (NEURONTIN) CAP PO SCH ×3 (08:31→19:38)
[2021-12-13] MEDS: AMITRIPTYLINE 10 MG (ELAVIL) TAB PO SCH (08:31)
[2021-12-13] MEDS: PANTOPRAZOLE 40 MG (PROTONIX) TAB PO SCH ×2 (08:31→19:38)
[2021-12-13] MEDS: BENZONATATE 100 MG (TESSALON) CAPSULE PO SCH ×3 (08:31→19:38)
[2021-12-13] MEDS: ASCORBIC ACID (VIT C) 500 MG TABLET PO SCH (08:31)
[2021-12-13] MEDS: DOCUSATE SODIUM 100 MG (COLACE) CAP PO SCH ×2 (08:35→19:10)
[2021-12-13] MEDS: SENNOSIDES 8.6 MG (SENOKOT) TAB PO SCH ×2 (08:35→19:10)
[2021-12-13] MEDS: SENNA W/DOCUSATE (SENOKOT S) TABLET PO SCH ×2 (08:35→19:10)
--- NOTE | 2021-12-13 09:48 | Progress Note - Surgery ---
Subjective Date Seen by a Provider: Dec 13, 2021 Time Seen by a Provider: 09:48 Subjective/Events-last exam coughing this morning. slight shortness of breath. using incentive spirometer. 4 L nc for o2. hgb stable. denies n/v fever sweats chills or chest pain. Objective Exam Vital Signs Date Time Temp Pulse Resp B/P (MAP) Pulse Ox O2 Delivery O2 Flow Rate FiO2 12/13/21 07:50 Nasal Cannula 4.00 12/13/21 07:40 99 Nasal Cannula 4.00 12/13/21 07:19 36.3 69 18 159/53 (88) 99 Nasal Cannula 3.00 12/13/21 04:23 36.3 69 20 136/74 (94) 96 Nasal Cannula 3.00 12/12/21 23:42 36.5 74 20 157/76 (103) 97 Nasal Cannula 3.00 12/12/21 20:11 36.8 76 20 153/91 (111) 98 Nasal Cannula 3.00 12/12/21 19:50 Nasal Cannula 4.00 12/12/21 15:52 36.2 82 20 129/74 (92) 100 Nasal Cannula 3.00 12/12/21 14:42 99 Nasal Cannula 5.00 12/12/21 12:20 36.1 65 17 146/74 (98) 100 Nasal Cannula 4.00 12/12/21 11:15 100 Nasal Cannula 5.00 I & O 12/13/21 07:00 Intake Total 2170 ml Balance 2170 ml Capillary Refill : General Appearance: No Apparent Distress, WD/WN, Chronically ill, Obese HEENT: PERRL/EOMI, Normal ENT Inspection, Moist Mucous Membranes Neck: Full Range of Motion, Normal Inspection, Non Tender Respiratory: Chest Non Tender, No Accessory Muscle Use, No Respiratory Distress Cardiovascular: Regular Rate, Rhythm, No JVD Gastrointestinal: non tender, soft Extremity: Normal Capillary Refill, Normal Inspection, Normal Range of Motion, Non Tender, No Calf Tenderness, No Pedal Edema Neurologic/Psychiatric: Alert, Oriented x3, Normal Mood/Affect Skin: Normal Color, Warm/Dry Lymphatic: No Adenopathy Results Lab Laboratory Tests 12/13/21 05:47: White Blood Count 13.7H, Red Blood Count 2.88L, Hemoglobin 9.0L, Hematocrit 29L, Mean Corpuscular Volume 101H, Mean Corpuscular Hemoglobin 31, Mean Corpuscular Hemoglobin Concent 31L, Red Cell Distribution Width 16.6H, Platelet Count 321, Mean Platelet Volume 9.9, Immature Granulocyte % (Auto) 1, Neutrophils (%) (Auto) 88H, Lymphocytes (%) (Auto) 7L, Monocytes (%) (Auto) 4, Eosinophils (%) (Auto) 0, Basophils (%) (Auto) 0, Neutrophils # (Auto) 12.1H, Lymphocytes # (Auto) 0.9L, Monocytes # (Auto) 0.5, Eosinophils # (Auto) 0.0, Basophils # (Auto) 0.0, Immature Granulocyte # (Auto) 0.2H, Sodium Level 140, Potassium Level 3.7, Chloride Level 104, Carbon Dioxide Level 23, Anion Gap 13, Blood Urea Nitrogen 22H, Creatinine 2.07H, Estimat Glomerular Filtration Rate 27, BUN/Creatinine Ratio 11, Glucose Level 154H, Calcium Level 9.2, Corrected Calcium 9.7, Total Bilirubin 0.7, Aspartate Amino Transf (AST/SGOT) 23, Alanine Aminotransferase (ALT/SGPT) 25, Alkaline Phosphatase 56, Total Protein 6.1L, Albumin 3.4 Assessment/Plan Assessment/Plan Assessment/Plan anemia GERD Etoh Withdrawal Pneumonia Afib rvr retirement anticoagulation hgb stable, follow and transfuse as needed breathing same on anticoagulation for Afib Protonix BID/ carafate has not had colonoscopy for greater than 10 years, would recommend egd/colonoscopy inpatient vs outpatient since hgb stable and currently on Eliquis likely outpatient and want respiratory status to improve unless emergent encouraged using IS, patient ambulating some KEYLA ZELAYA DO Dec 13, 2021 09:48
[2021-12-13] MEDS: IRON SUCROSE 200 MG/10 ML (VENOFER) VIAL IV NR (10:37)
[2021-12-13] MEDS ORDERED: APIX5TAB PO (11:11)
[2021-12-13] MEDS ORDERED: FLEC100T PO (11:11)
[2021-12-13] MEDS ORDERED: METO50TA7 PO (11:13)
--- NOTE | 2021-12-13 11:17 | Cardiology Progress Note ---
Progress Note-Cardiology Events since last exam Date Seen by Provider: Dec 13, 2021 Time Seen by Provider: 11:16 Events since last exam I am following her due to atrial fibrillation. She still has a cough but is not having significant shortness of breath. She has been ambulating in the hallways and around. She denies chest discomfort, palpitations, or syncope. Her ankle edema has gotten slightly worse. Certain portions of this document may have been dictated utilizing voice recognition technology. Inherent to this technology, typographical and grammatical errors may exist. As much as I am diligent to identify and correct these mistakes, some errors may remain in the document. Vitals Last set of Vitals Signs Vital Signs 12/13/21 11:48 Temp 36.1 Pulse 67 Resp 20 B/P (MAP) 157/75 (102) Pulse Ox 98 O2 Delivery Nasal Cannula O2 Flow Rate 3.00 Labs Labs Laboratory Tests 12/13/21 05:47 Exam Vital Signs Vital Signs Date Time Temp Pulse Resp B/P (MAP) Pulse Ox O2 Delivery O2 Flow Rate FiO2 12/13/21 11:48 36.1 67 20 157/75 (102) 98 Nasal Cannula 3.00 Physical Exam General: Alert. No acute distress. She is obese. Eye: No xanthelasma. HENT: Normocephalic. Neck: Jugular venous pressure does not appear elevated. Respiratory: Lungs are clear to auscultation. Respirations are non-labored. Breath sounds are equal. Symmetrical chest wall expansion. Cardiovascular: Normal rate. Regular rhythm. Distant S1/S2. 2/6 systolic eject ion murmur. No gallop. 2+ bilateral pretibial edema. Gastrointestinal: Soft. Normal bowel sounds. Skin: Warm. Dry. Neurologic: Alert and oriented to person, place, time. Cranial nerves 3-11 grossly intact. Psychiatric: Cooperative. Appropriate mood & affect. Labs Laboratory Tests Test 12/13/21 05:47 Range/Units White Blood Count 13.7 H 4.3-11.0 10^3/uL Red Blood Count 2.88 L 3.80-5.11 10^6/uL Hemoglobin 9.0 L 11.5-16.0 g/dL Hematocrit 29 L 35-52 % Mean Corpuscular Volume 101 H 80-99 fL Mean Corpuscular Hemoglobin 31 25-34 pg Mean Corpuscular Hemoglobin Concent 31 L 32-36 g/dL Red Cell Distribution Width 16.6 H 10.0-14.5 % Platelet Count 321 130-400 10^3/uL Mean Platelet Volume 9.9 9.0-12.2 fL Immature Granulocyte % (Auto) 1 % Neutrophils (%) (Auto) 88 H 42-75 % Lymphocytes (%) (Auto) 7 L 12-44 % Monocytes (%) (Auto) 4 0-12 % Eosinophils (%) (Auto) 0 0-10 % Basophils (%) (Auto) 0 0-10 % Neutrophils # (Auto) 12.1 H 1.8-7.8 10^3/uL Lymphocytes # (Auto) 0.9 L 1.0-4.0 10^3/uL Monocytes # (Auto) 0.5 0.0-1.0 10^3/uL Eosinophils # (Auto) 0.0 0.0-0.3 10^3/uL Basophils # (Auto) 0.0 0.0-0.1 10^3/uL Immature Granulocyte # (Auto) 0.2 H 0.0-0.1 10^3/uL Sodium Level 140 135-145 MMOL/L Potassium Level 3.7 3.6-5.0 MMOL/L Chloride Level 104 98-107 MMOL/L Carbon Dioxide Level 23 21-32 MMOL/L Anion Gap 13 5-14 MMOL/L Blood Urea Nitrogen 22 H 7-18 MG/DL Creatinine 2.07 H 0.60-1.30 MG/DL Estimat Glomerular Filtration Rate 27 BUN/Creatinine Ratio 11 Glucose Level 154 H 70-105 MG/DL Calcium Level 9.2 8.5-10.1 MG/DL Corrected Calcium 9.7 8.5-10.1 MG/DL Total Bilirubin 0.7 0.1-1.0 MG/DL Aspartate Amino Transf (AST/SGOT) 23 5-34 U/L Alanine Aminotransferase (ALT/SGPT) 25 0-55 U/L Alkaline Phosphatase 56 40-136 U/L Total Protein 6.1 L 6.4-8.2 GM/DL Albumin 3.4 3.2-4.5 GM/DL Diagnosis/Problems Diagnosis/Problems (1) Persistent atrial fibrillation Assessment & Plan: No signs of recurrence on flecainide. I did lower the dose of flecainide and she has remained in sinus rhythm. She is on beta-tahir for rate control in the event she has recurrent atrial fibrillation and apixaban for stroke prophylaxis. Since she had a blood transfusion, her hemoglobin level now appears to be coming up. She has been taking iron tablets at home. At this point, from a cardiac standpoint, we can probably hold off on endoscopies until after discharge. (2) Primary hypertension Status: Chronic Assessment & Plan: Blood pressures have improved on the higher dose of metoprolol. (3) Aortic stenosis Status: Chronic Assessment & Plan: This has been in a mild range and should not be causing symptoms but will need to be followed. (4) Lower extremity edema Assessment & Plan: I suspect this is stress due to immobility while she has been in the hospital as well as intravenous fluids she received. I do not believe she has heart failure. The fluid should mobilize with physical activity. I do not see any reason to give her a diuretic. (5) Acute kidney injury Assessment & Plan: Her creatinine went up while she was receiving intravenous antibiotics for the pneumonia but has now stabilized although is higher than she was in the past. Exact etiology unclear. Apparently pharmacy has determined that Zosyn may have done this and this medication has now been discontinued. We will continue to monitor her creatinine level closely. (6) Anemia Assessment & Plan: Etiology unclear. Her hemoglobin was normal mid November. some of the anemia could be related to her alcohol abuse. As above, she has now received 1 blood transfusion. General surgery is following the patient in regards to deciding about inpatient versus outpatient endoscopies. I will give her 1 iron infusion. (7) Acute on chronic respiratory failure with hypoxemia Assessment & Plan: Most likely due to pneumonia for which she is being treated. (8) Alcohol dependence Status: Chronic Assessment & Plan: She is planning to go back to an inpatient alcohol rehabilitation facility following discharge. CONI LEWIS JR, MD Dec 13, 2021 11:17
[2021-12-13 11:48] VITALS: BP 157/75
[2021-12-13 15:41] VITALS: BP 162/90
[2021-12-13] MEDS: PRAMIPEXOLE 0.5 MG TAB (MIRAPEX) PO SCH (19:38)
[2021-12-13] MEDS: QUEtiapine 200 MG (SEROquel) TAB IMMEDIATE RELEASE PO SCH (19:38)
[2021-12-13 20:02] VITALS: BP 162/84
[2021-12-13] MEDS: MELATONIN 3 MG TABLET PO PRN (20:41)
[2021-12-13 23:12] VITALS: BP 151/81
[2021-12-14] MEDS: PIPERACILLIN SODIUM/TAZOBACTAM 4.5 GM in NS (IVPB) 100 ML IV SCH ×3 (01:05→16:39)
[2021-12-14] MEDS: methylPREDNISolone 40 MG/ML (Solu-MEDROL) VIAL IV SCH ×3 (05:54→16:39)
[2021-12-14] MEDS: SUCRALFATE 1 GM (CARAFATE) TAB PO SCH ×4 (05:54→20:15)
[2021-12-14] MEDS: KCL 20 MEQ TAB (K-DUR) PO SCH (05:54)
[2021-12-14] MEDS: MULTIVIT W/MINERALS TAB (THERAGRAN M) PO SCH (05:54)
[2021-12-14 06:43] LABS: BASOPHILS % (AUTO) 0 % (0-10); EOSINOPHILS % (AUTO) 0 % (0-10); HEMATOCRIT 29 % (35-52); HEMOGLOBIN 8.8 g/dL (11.5-16.0); LYMPHOCYTES # (AUTO) 1.1 10^3/uL (1.0-4.0); LYMPHOCYTES % (AUTO) 11 % (12-44); MEAN CORPUSCULAR HEMOGLOBIN 30 pg (25-34); MEAN CORPUSCULAR HGB CONC 30 g/dL (32-36); MEAN CORPUSCULAR VOLUME 101 fL (80-99); MEAN PLATELET VOLUME 10.1 fL (9.0-12.2); MONOCYTES # (AUTO) 0.4 10^3/uL (0.0-1.0); MONOCYTES % (AUTO) 3 % (0-12); NEUTROPHILS # (AUTO) 8.5 10^3/uL (1.8-7.8); NEUTROPHILS % (AUTO) 83 % (42-75); PLATELET COUNT 265 10^3/uL (130-400); WHITE BLOOD COUNT 10.4 10^3/uL (4.3-11.0)
[2021-12-14] MEDS: RT--FLUTICASONE/SALMETEROL 113-14 (AIRDUO RespiCLICK) IH SCH ×2 (06:59→21:22)
[2021-12-14] MEDS: RT-ALBUTEROL SULF 2.5 MG/3 ML PRE-MIX VIAL INH SCH ×4 (06:59→21:22)
[2021-12-14 07:20] LABS: ALBUMIN 3.4 GM/DL (3.2-4.5); BILIRUBIN,TOTAL 0.7 MG/DL (0.1-1.0); CALCIUM 9.3 MG/DL (8.5-10.1); CREATININE SERUM 1.95 MG/DL (0.60-1.30); TOTAL PROTEIN 6.2 GM/DL (6.4-8.2)
[2021-12-14 07:34] VITALS: BP 167/89
[2021-12-14] MEDS: LACTULOSE SYRUP 10GM/15ML (ENULOSE) 30ML UDC PO SCH ×2 (09:00→20:19)
[2021-12-14] MEDS: LACTOBACILLUS ACIDOPHILUS (PROBIOTIC) CAPSULE PO SCH ×3 (09:39→16:40)
[2021-12-14] MEDS: meTOproloL SUCCINATE 50 MG (TOPROL XL) TAB PO SCH (09:39)
[2021-12-14] MEDS: AMITRIPTYLINE 10 MG (ELAVIL) TAB PO SCH (09:39)
[2021-12-14] MEDS: BENZONATATE 100 MG (TESSALON) CAPSULE PO SCH ×3 (09:39→20:15)
[2021-12-14] MEDS: FERROUS SULF 325 MG (IRON) TAB PO SCH (09:39)
[2021-12-14] MEDS: MONTELUKAST 10 MG (SINGULAIR) TAB PO SCH (09:39)
[2021-12-14] MEDS: GABAPENTIN 100 MG (NEURONTIN) CAP PO SCH ×3 (09:39→20:16)
[2021-12-14] MEDS: FLECAINIDE 100 MG (TAMBOCOR) TAB PO SCH ×2 (09:39→20:16)
[2021-12-14] MEDS: ASCORBIC ACID (VIT C) 500 MG TABLET PO SCH (09:39)
[2021-12-14] MEDS: PANTOPRAZOLE 40 MG (PROTONIX) TAB PO SCH ×2 (09:40→20:16)
[2021-12-14] MEDS: DULoxetine 30 MG (CYMBALTA) CAP PO SCH (09:40)
[2021-12-14] MEDS: FLUoxetine HCL 20 MG (PROzac) CAP PO SCH (09:40)
[2021-12-14] MEDS: FOLIC ACID 1 MG TAB PO SCH (09:40)
[2021-12-14] MEDS: IRON SUCROSE 200 MG/10 ML (VENOFER) VIAL IV NR (09:44)
[2021-12-14] MEDS: DOCUSATE SODIUM 100 MG (COLACE) CAP PO SCH ×2 (10:42→20:19)
[2021-12-14] MEDS: SENNA W/DOCUSATE (SENOKOT S) TABLET PO SCH ×2 (10:46→20:22)
[2021-12-14] MEDS: SENNOSIDES 8.6 MG (SENOKOT) TAB PO SCH ×2 (10:46→20:22)
--- NOTE | 2021-12-14 11:20 | Progress Note ---
Subjective Subjective/Events-last exam Is having significant increased work of breathing, but states not any worse than yesterday, had some bad episodes yesterday with being okay in between. Objective Exam Last Set of Vital Signs Vital Signs Date Time Temp Pulse Resp B/P (MAP) Pulse Ox O2 Delivery O2 Flow Rate FiO2 12/14/21 11:01 99 Nasal Cannula 2.00 12/14/21 07:34 36.0 79 18 167/89 (115) 12/14/21 06:59 100 Capillary Refill : I&O Intake and Output 12/13/21 23:59 Intake Total 1250 ml Balance 1250 ml Intake Oral 1150 ml IV Total 100 ml # Voids 6 # Bowel Movements 2 General: Alert, Mild Distress Lungs: Other (absent air movement on the right, end expiratory wheeze on left) Heart: Regular Rate Neuro: Normal Speech Psych/Mental Status: Mood NL Results/Procedures Lab Laboratory Tests 12/14/21 06:31: White Blood Count 10.4, Red Blood Count 2.89L, Hemoglobin 8.8L, Hematocrit 29L, Mean Corpuscular Volume 101H, Mean Corpuscular Hemoglobin 30, Mean Corpuscular Hemoglobin Concent 30L, Red Cell Distribution Width 16.8H, Platelet Count 265, Mean Platelet Volume 10.1, Immature Granulocyte % (Auto) 4, Neutrophils (%) (Auto) 83H, Lymphocytes (%) (Auto) 11L, Monocytes (%) (Auto) 3, Eosinophils (%) (Auto) 0, Basophils (%) (Auto) 0, Neutrophils # (Auto) 8.5H, Lymphocytes # (A uto) 1.1, Monocytes # (Auto) 0.4, Eosinophils # (Auto) 0.0, Basophils # (Auto) 0.0, Immature Granulocyte # (Auto) 0.4H, Sodium Level 139, Potassium Level 4.0, Chloride Level 102, Carbon Dioxide Level 23, Anion Gap 14, Blood Urea Nitrogen 23H, Creatinine 1.95H, Estimat Glomerular Filtration Rate 29, BUN/Creatinine Ratio 12, Glucose Level 140H, Calcium Level 9.3, Corrected Calcium 9.8, Total Bilirubin 0.7, Aspartate Amino Transf (AST/SGOT) 26, Alanine Aminotransferase (ALT/SGPT) 37, Alkaline Phosphatase 59, Total Protein 6.2L, Albumin 3.4 Assessment/Plan Assessment/Plan (1) Pneumonia Status: Acute Assessment & Plan: On Zosyn day 11, continues to have some difficulty breathing, repeat CXR today. (2) COPD (chronic obstructive pulmonary disease) Status: Chronic Assessment & Plan: With wheezing, possible acute exacerbation, is on solumedrol 80 mg q6 hours, has been on IV solumedrol since admit, anticipate tapering, will consult Pulmonology due to persistent respiratory issues. (3) Alcohol dependence Status: Chronic Assessment & Plan: Was discharge to inpatient rehab last stay but almost immediately readmitted inpatient for pneumonia, plan to go to [facility] again on d/c. (4) Primary hypertension Status: Chronic (5) Persistent atrial fibrillation Status: Chronic Assessment & Plan: Appreciate Cardiology recommendations. Apixaban was held early in admission due to anemia and transfusion. (6) Acute on chronic respiratory failure with hypoxemia Status: Acute (7) Anemia Assessment & Plan: Multifactorial, hemoglobin was normal at beginning of last admit, trended down slowly throughout. Is macrocytic, B12 is high. Iron normal, TIBC low and ferritin high suspicious for anemia of chronic disease developing but with underlying alcohol use and possible blood loss as well. Hemoccult positive, waiting on scopes given hemoglobin stable. s/p 1 unit transfusion on 12/09 (8) Acute kidney injury Status: Acute Assessment & Plan: Unclear etiology, trending back down. (9) DVT prophylaxis Status: Acute Assessment & Plan: Not on pharmacologic due to anemia and possible GI bleeding. VICKI VICENTE MD Dec 14, 2021 11:20
--- NOTE | 2021-12-14 12:42 | Diagnostic Imaging Report ---
INDICATION: Shortness of breath, pneumonia. EXAMINATION: Two-view chest, 12/14/2021. COMPARISON: 12/11/2021. FINDINGS: There are persistent bilateral bibasilar infiltrates, right worse than left. Findings have improved since the previous examination. There is no pneumothorax. There are no effusions. There is mild cardiomegaly. The pulmonary vasculature appears congested. IMPRESSION: 1. Improving but persistent bilateral infiltrates, right worse than left. 2. Pulmonary vascular congestion. Dictated by: Dictated on workstation # [id number]
--- NOTE | 2021-12-14 14:00 | Progress Note - Surgery ---
Subjective Date Seen by a Provider: Dec 14, 2021 Time Seen by a Provider: 08:40 Subjective/Events-last exam Patient is still with difficulty breathing she states. She is not requiring as much nasal cannula oxygen. Patient not having any nausea or vomiting. She has no abdominal pain. Her hemoglobin is stable at 8.8. She has no other complaints denies fever sweats chills or chest pain. Objective Exam Vital Signs Date Time Temp Pulse Resp B/P (MAP) Pulse Ox O2 Delivery O2 Flow Rate FiO2 12/14/21 11:01 99 Nasal Cannula 2.00 12/14/21 08:41 Nasal Cannula 2.00 12/14/21 07:34 36.0 79 18 167/89 (115) 92 Nasal Cannula 4.00 12/14/21 06:59 99 Nasal Cannula 2.00 100 12/13/21 23:12 35.4 65 20 151/81 (104) 98 Nasal Cannula 4.00 12/13/21 20:02 36.1 77 20 162/84 (110) 95 Nasal Cannula 4.00 12/13/21 19:35 Nasal Cannula 4.00 12/13/21 18:16 100 Nasal Cannula 4.00 12/13/21 18:12 99 Nasal Cannula 5.00 12/13/21 15:41 36.1 65 22 162/90 (114) 95 Nasal Cannula 3.00 I & O 12/14/21 07:00 Intake Total 1270 ml Balance 1270 ml Capillary Refill : General Appearance: No Apparent Distress, WD/WN, Chronically ill, Obese HEENT: PERRL/EOMI, Normal ENT Inspection, Moist Mucous Membranes Neck: Full Range of Motion, Normal Inspection, Non Tender Respiratory: Chest Non Tender, No Accessory Muscle Use, No Respiratory Distress Cardiovascular: Regular Rate, Rhythm, No JVD Gastrointestinal: non tender, soft Extremity: Normal Capillary Refill, Normal Inspection, Normal Range of Motion, Non Tender, No Calf Tenderness Neurologic/Psychiatric: Alert, Oriented x3, Depressed Affect Skin: Normal Color, Warm/Dry Lymphatic: No Adenopathy Results Lab Laboratory Tests 12/14/21 06:31: White Blood Count 10.4, Red Blood Count 2.89L, Hemoglobin 8.8L, Hematocrit 29L, Mean Corpuscular Volume 101H, Mean Corpuscular Hemoglobin 30, Mean Corpuscular Hemoglobin Concent 30L, Red Cell Distribution Width 16.8H, Platelet Count 265, Mean Platelet Volume 10.1, Immature Granulocyte % (Auto) 4, Neutrophils (%) (Auto) 83H, Lymphocytes (%) (Auto) 11L, Monocytes (%) (Auto) 3, Eosinophils (%) (Auto) 0, Basophils (%) (Auto) 0, Neutrophils # (Auto) 8.5H, Lymphocytes # (Auto) 1.1, Monocytes # (Auto) 0.4, Eosinophils # (Auto) 0.0, Basophils # (Auto) 0.0, Immature Granulocyte # (Auto) 0.4H, Sodium Level 139, Potassium Level 4.0, Chloride Level 102, Carbon Dioxide Level 23, Anion Gap 14, Blood Urea Nitrogen 23H, Creatinine 1.95H, Estimat Glomerular Filtration Rate 29, BUN/Creatinine Ratio 12, Glucose Level 140H, Calcium Level 9.3, Corrected Calcium 9.8, Total Bilirubin 0.7, Aspartate Amino Transf (AST/SGOT) 26, Alanine Aminotransferase (ALT/SGPT) 37, Alkaline Phosphatase 59, Total Protein 6.2L, Albumin 3.4 Assessment/Plan Assessment/Plan Assessment/Plan anemia GERD Etoh Withdrawal Pneumonia Afib rvr alf anticoagulation hgb stable, follow and transfuse as needed breathing same requiring less O2 per nasal cannula on anticoagulation for Afib Protonix BID/ carafate has not had colonoscopy for greater than 10 years, would recommend egd/colonoscopy inpatient vs outpatient since hgb stable and currently on Eliquis likely outpatient and want respiratory status to improve unless emergent encouraged using IS, patient ambulating some KEYLA ZELAYA DO Dec 14, 2021 14:00
[2021-12-14 15:05] VITALS: BP 167/89
[2021-12-14 15:17] VITALS: BP 170/97
[2021-12-14] MEDS: LOPERAMIDE SUSP 2 MG/15 ML (IMODIUM) UDC PO PRN (20:00)
[2021-12-14] MEDS: QUEtiapine 200 MG (SEROquel) TAB IMMEDIATE RELEASE PO SCH (20:13)
[2021-12-14] MEDS: PRAMIPEXOLE 0.5 MG TAB (MIRAPEX) PO SCH (20:17)
[2021-12-15] MEDS: methylPREDNISolone 40 MG/ML (Solu-MEDROL) VIAL IV SCH ×3 (00:27→11:43)
[2021-12-15] MEDS: PIPERACILLIN SODIUM/TAZOBACTAM 4.5 GM in NS (IVPB) 100 ML IV SCH ×3 (00:29→16:34)
[2021-12-15 00:55] VITALS: BP 168/80
[2021-12-15] MEDS: SUCRALFATE 1 GM (CARAFATE) TAB PO SCH ×4 (05:35→20:15)
[2021-12-15] MEDS: KCL 20 MEQ TAB (K-DUR) PO SCH (05:35)
[2021-12-15] MEDS: MULTIVIT W/MINERALS TAB (THERAGRAN M) PO SCH (05:35)
[2021-12-15 05:38] LABS: BASOPHILS % (AUTO) 0 % (0-10); EOSINOPHILS % (AUTO) 0 % (0-10); HEMATOCRIT 31 % (35-52); HEMOGLOBIN 9.5 g/dL (11.5-16.0); LYMPHOCYTES # (AUTO) 1.2 10^3/uL (1.0-4.0); LYMPHOCYTES % (AUTO) 10 % (12-44); MEAN CORPUSCULAR HEMOGLOBIN 31 pg (25-34); MEAN CORPUSCULAR HGB CONC 30 g/dL (32-36); MEAN CORPUSCULAR VOLUME 102 fL (80-99); MONOCYTES # (AUTO) 0.5 10^3/uL (0.0-1.0); MONOCYTES % (AUTO) 4 % (0-12); NEUTROPHILS # (AUTO) 10.1 10^3/uL (1.8-7.8); NEUTROPHILS % (AUTO) 81 % (42-75); PLATELET COUNT 255 10^3/uL (130-400); WHITE BLOOD COUNT 12.5 10^3/uL (4.3-11.0)
[2021-12-15 05:53] LABS: ALBUMIN 3.7 GM/DL (3.2-4.5)
[2021-12-15 05:54] LABS: POTASSIUM 3.9 MMOL/L (3.6-5.0)
[2021-12-15 05:55] LABS: CALCIUM 9.4 MG/DL (8.5-10.1)
[2021-12-15 05:56] LABS: TOTAL PROTEIN 6.3 GM/DL (6.4-8.2)
[2021-12-15 05:58] LABS: BILIRUBIN,TOTAL 0.7 MG/DL (0.1-1.0)
[2021-12-15 06:00] LABS: CREATININE SERUM 2.05 MG/DL (0.60-1.30)
[2021-12-15] MEDS: RT-ALBUTEROL SULF 2.5 MG/3 ML PRE-MIX VIAL INH SCH ×2 (07:10→21:18)
[2021-12-15] MEDS: RT--FLUTICASONE/SALMETEROL 113-14 (AIRDUO RespiCLICK) IH SCH ×2 (07:11→21:18)
[2021-12-15] MEDS: BENZONATATE 100 MG (TESSALON) CAPSULE PO SCH ×3 (07:38→20:15)
[2021-12-15] MEDS: AMITRIPTYLINE 10 MG (ELAVIL) TAB PO SCH (07:38)
[2021-12-15] MEDS: LACTOBACILLUS ACIDOPHILUS (PROBIOTIC) CAPSULE PO SCH ×3 (07:38→16:33)
[2021-12-15] MEDS: PANTOPRAZOLE 40 MG (PROTONIX) TAB PO SCH ×2 (07:38→20:17)
[2021-12-15] MEDS: FERROUS SULF 325 MG (IRON) TAB PO SCH (07:38)
[2021-12-15] MEDS: MONTELUKAST 10 MG (SINGULAIR) TAB PO SCH (07:39)
[2021-12-15] MEDS: GABAPENTIN 100 MG (NEURONTIN) CAP PO SCH ×3 (07:39→20:15)
[2021-12-15] MEDS: FLECAINIDE 100 MG (TAMBOCOR) TAB PO SCH ×2 (07:39→20:14)
[2021-12-15] MEDS: FLUoxetine HCL 20 MG (PROzac) CAP PO SCH (07:39)
[2021-12-15] MEDS: ASCORBIC ACID (VIT C) 500 MG TABLET PO SCH (07:39)
[2021-12-15] MEDS: SENNA W/DOCUSATE (SENOKOT S) TABLET PO SCH ×2 (07:40→20:19)
[2021-12-15] MEDS: FOLIC ACID 1 MG TAB PO SCH (07:40)
[2021-12-15] MEDS: DOCUSATE SODIUM 100 MG (COLACE) CAP PO SCH ×2 (07:40→20:19)
[2021-12-15] MEDS: DULoxetine 30 MG (CYMBALTA) CAP PO SCH (07:40)
[2021-12-15] MEDS: LACTULOSE SYRUP 10GM/15ML (ENULOSE) 30ML UDC PO SCH ×2 (07:40→20:19)
[2021-12-15] MEDS: meTOproloL SUCCINATE 50 MG (TOPROL XL) TAB PO SCH (07:40)
[2021-12-15] MEDS: SENNOSIDES 8.6 MG (SENOKOT) TAB PO SCH ×2 (07:40→20:19)
[2021-12-15] MEDS ORDERED: FUROSEMIDE 40 MG/4 ML INJ (LASIX) IVP ONE (08:15)
[2021-12-15 08:21] VITALS: BP 194/97
--- NOTE | 2021-12-15 09:03 | Cardiology Progress Note ---
Progress Note-Cardiology Events since last exam Date Seen by Provider: Dec 15, 2021 Time Seen by Provider: 09:01 Events since last exam I am following her due to atrial fibrillation. On 12/14 she became more short of breath. Her cough seems to have resolved. She denies chest pain, palpitations, or syncope. She has mild bilateral lower extremity edema. Her ultimate goal is to transfer to an inpatient alcohol rehabilitation facility but this was placed on hold due to her worsening shortness of breath. Certain portions of this document may have been dictated utilizing voice recognition technology. Inherent to this technology, typographical and grammatical errors may exist. As much as I am diligent to identify and correct these mistakes, some errors may remain in the document. Vitals Last set of Vitals Signs Vital Signs 12/14/21 12/15/21 15:05 08:21 Temp 36.8 Pulse 90 Resp 20 B/P (MAP) 194/97 (129) Pulse Ox 91 O2 Delivery Nasal Cannula O2 Flow Rate 3.00 FiO2 28 Labs Labs Laboratory Tests 12/15/21 05:20 Exam Vital Signs Vital Signs Date Time Temp Pulse Resp B/P (MAP) Pulse Ox O2 Delivery O2 Flow Rate FiO2 12/15/21 08:21 36.8 90 20 194/97 (129) 91 Nasal Cannula 3.00 12/14/21 15:05 28 Physical Exam General: Alert. No acute distress. She is obese. Eye: No xanthelasma. HENT: Normocephalic. Neck: Jugular venous pressure does not appear elevated. Respiratory: Lungs have bibasilar crackles. Respirations are non-labored. Breath sounds are equal. Symmetrical chest wall expansion. Cardiovascular: Normal rate. Regular rhythm. Distant S1/S2. 2/6 systolic ejection murmur. No gallop. 1+ bilateral pretibial edema. Gastrointestinal: Soft. Normal bowel sounds. Skin: Warm. Dry. Neurologic: Alert and oriented to person, place, time. Cranial nerves 3-11 grossly intact. Psychiatric: Cooperative. Appropriate mood & affect. Labs Laboratory Tests Test 12/15/21 05:20 Range/Units White Blood Count 12.5 H 4.3-11.0 10^3/uL Red Blood Count 3.07 L 3.80-5.11 10^6/uL Hemoglobin 9.5 L 11.5-16.0 g/dL Hematocrit 31 L 35-52 % Mean Corpuscular Volume 102 H 80-99 fL Mean Corpuscular Hemoglobin 31 25-34 pg Mean Corpuscular Hemoglobin Concent 30 L 32-36 g/dL Red Cell Distribution Width 17.0 H 10.0-14.5 % Platelet Count 255 130-400 10^3/uL Mean Platelet Volume 10.0 9.0-12.2 fL Immature Granulocyte % (Auto) 5 % Neutrophils (%) (Auto) 81 H 42-75 % Lymphocytes (%) (Auto) 10 L 12-44 % Monocytes (%) (Auto) 4 0-12 % Eosinophils (%) (Auto) 0 0-10 % Basophils (%) (Auto) 0 0-10 % Neutrophils # (Auto) 10.1 H 1.8-7.8 10^3/uL Lymphocytes # (Auto) 1.2 1.0-4.0 10^3/uL Monocytes # (Auto) 0.5 0.0-1.0 10^3/uL Eosinophils # (Auto) 0.0 0.0-0.3 10^3/uL Basophils # (Auto) 0.0 0.0-0.1 10^3/uL Immature Granulocyte # (Auto) 0.7 H 0.0-0.1 10^3/uL Sodium Level 141 135-145 MMOL/L Potassium Level 3.9 3.6-5.0 MMOL/L Chloride Level 105 98-107 MMOL/L Carbon Dioxide Level 23 21-32 MMOL/L Anion Gap 13 5-14 MMOL/L Blood Urea Nitrogen 26 H 7-18 MG/DL Creatinine 2.05 H 0.60-1.30 MG/DL Estimat Glomerular Filtration Rate 27 BUN/Creatinine Ratio 13 Glucose Level 179 H 70-105 MG/DL Calcium Level 9.4 8.5-10.1 MG/DL Corrected Calcium 9.6 8.5-10.1 MG/DL Total Bilirubin 0.7 0.1-1.0 MG/DL Aspartate Amino Transf (AST/SGOT) 26 5-34 U/L Alanine Aminotransferase (ALT/SGPT) 43 0-55 U/L Alkaline Phosphatase 51 40-136 U/L Total Protein 6.3 L 6.4-8.2 GM/DL Albumin 3.7 3.2-4.5 GM/DL Diagnosis/Problems Diagnosis/Problems (1) Persistent atrial fibrillation Status: Chronic Assessment & Plan: No signs of recurrence on flecainide. I did lower the dose of flecainide and she has remained in sinus rhythm. She is on beta-tahir for rate control in the event she has recurrent atrial fibrillation and apixaban for stroke prophylaxis. Since she had a blood transfusion, her hemoglobin level now appears to be coming up. She has been taking iron tablets at home. At this point, from a cardiac standpoint, we can probably hold off on endoscopies until after discharge. (2) Pulmonary vascular congestion Assessment & Plan: Her chest x-ray from 12/14 showed some evidence of pulmonary vascular congestion. I suspect this is just related to volume overload due to blood transfusion, intravenous iron as well as intravenous antibiotics and intravenous fluids she has received. I do not believe this is heart failure. I will give her 1 dose of intravenous furosemide. (3) Primary hypertension Status: Chronic Assessment & Plan: Blood pressures have improved on the higher dose of metoprolol. However, blood pressure was elevated today. I asked the nurse to give her an extra dose of metoprolol. (4) Aortic stenosis Status: Chronic Assessment & Plan: This has been in a mild range and should not be causing symptoms but will need to be followed. (5) Lower extremity edema Assessment & Plan: I suspect this is stress due to immobility while she has been in the hospital as well as intravenous fluids she received. I do not believe she has heart failure. Given the persistent peripheral edema and now evidence of pulmonary congestion on her chest x-ray I will give her 1 dose of intravenous furosemide as outlined above. (6) Acute kidney injury Status: Acute Assessment & Plan: Her creatinine went up while she was receiving intravenous antibiotics for the pneumonia but has now stabilized although is higher than she was in the past. Exact etiology unclear. Apparently pharmacy has determined that the combination of Zosyn and vancomycin may have done this and the vancomycin has now been discontinued. We will continue to monitor her creatinine level closely. (7) Anemia Assessment & Plan: Etiology unclear. Her hemoglobin was normal mid November. some of the anemia could be related to her alcohol abuse. As above, she has now received 1 blood transfusion. General surgery is following the patient in regards to deciding about inpatient versus outpatient endoscopies. I will give her 1 iron infusion. (8) Acute on chronic respiratory failure with hypoxemia Status: Acute Assessment & Plan: Most likely due to pneumonia for which she is being treated. (9) Alcohol dependence Status: Chronic Assessment & Plan: She is planning to go back to an inpatient alcohol rehabilitation facility following discharge. CONI LEWIS JR, MD Dec 15, 2021 09:03
--- NOTE | 2021-12-15 09:38 | Progress Note - Surgery ---
Subjective Date Seen by a Provider: Dec 15, 2021 Time Seen by a Provider: 08:28 Subjective/Events-last exam Patient breathing she states is worse. No blood in stool. No abdominal pain. Hgb stable. Denies n/v fever sweats chills chest pain. Objective Exam Vital Signs Date Time Temp Pulse Resp B/P (MAP) Pulse Ox O2 Delivery O2 Flow Rate FiO2 12/15/21 08:21 36.8 90 20 194/97 (129) 91 Nasal Cannula 3.00 12/15/21 08:00 Nasal Cannula 3.00 12/15/21 07:11 99 Nasal Cannula 3.00 12/15/21 00:55 36.4 77 20 168/80 (109) 99 Nasal Cannula 3.00 12/14/21 21:22 95 Nasal Cannula 3.00 12/14/21 20:05 Nasal Cannula 3.00 12/14/21 15:17 37.2 79 18 170/97 (121) 93 Nasal Cannula 1.50 12/14/21 15:05 36.0 80 99 28 12/14/21 15:03 99 Nasal Cannula 2.00 12/14/21 11:01 99 Nasal Cannula 2.00 I & O 12/15/21 07:00 Intake Total 2020 ml Balance 2020 ml Capillary Refill : General Appearance: No Apparent Distress, WD/WN, Chronically ill, Obese HEENT: PERRL/EOMI, Normal ENT Inspection, Moist Mucous Membranes Neck: Full Range of Motion, Normal Inspection, Non Tender Respiratory: Chest Non Tender, No Accessory Muscle Use, No Respiratory Distress Cardiovascular: Regular Rate, Rhythm, No JVD Gastrointestinal: non tender, soft Extremity: Normal Capillary Refill, Normal Inspection, Normal Range of Motion, Non Tender, No Calf Tenderness Neurologic/Psychiatric: Alert, Oriented x3, Depressed Affect Skin: Normal Color, Warm/Dry Lymphatic: No Adenopathy Results Lab Laboratory Tests 12/15/21 05:20: White Blood Count 12.5H, Red Blood Count 3.07L, Hemoglobin 9.5L, Hematocrit 31L, Mean Corpuscular Volume 102H, Mean Corpuscular Hemoglobin 31, Mean Corpuscular Hemoglobin Concent 30L, Red Cell Distribution Width 17.0H, Platelet Count 255, Mean Platelet Volume 10.0, Immature Granulocyte % (Auto) 5, Neutrophils (%) (Auto) 81H, Lymphocytes (%) (Auto) 10L, Monocytes (%) (Auto) 4, Eosinophils (%) (Auto) 0, Basophils (%) (Auto) 0, Neutrophils # (Auto) 10.1H, Lymphocytes # (Auto) 1.2, Monocytes # (Auto) 0.5, Eosinophils # (Auto) 0.0, Basophils # (Auto) 0.0, Immature Granulocyte # (Auto) 0.7H, Sodium Level 141, Potassium Level 3.9, Chloride Level 105, Carbon Dioxide Level 23, Anion Gap 13, Blood Urea Nitrogen 26H, Creatinine 2.05H, Estimat Glomerular Filtration Rate 27, BUN/Creatinine Ratio 13, Glucose Level 179H, Calcium Level 9.4, Corrected Calcium 9.6, Total Bilirubin 0.7, Aspartate Amino Transf (AST/SGOT) 26, Alanine Aminotransferase (ALT/SGPT) 43, Alkaline Phosphatase 51, Total Protein 6.3L, Albumin 3.7 Assessment/Plan Assessment/Plan Assessment/Plan anemia GERD Etoh Withdrawal Pneumonia Afib rvr assisted anticoagulation hgb stable, follow and transfuse as needed breathing symptoms worse, chest x ray with b/l infiltrates from yesterday continue trying to improve respiratory status on anticoagulation for Afib Protonix BID/ carafate has not had colonoscopy for greater than 10 years, would recommend egd/colonoscopy inpatient vs outpatient since hgb stable and currently on Eliquis likely outpatient and want respiratory status to improve unless emergent encouraged using IS, patient ambulating some KEYLA ZELAYA DO Dec 15, 2021 09:38
[2021-12-15] MEDS ORDERED: meTOproloL SUCCINATE 50 MG (TOPROL XL) TAB PO NR (11:15)
--- NOTE | 2021-12-15 11:17 | Pulmonary Consultation ---
History of Present Illness History of Present Illness Date Seen by Provider: Dec 15, 2021 Time Seen by Provider: 11:10 Reason for Visit: Shortness of breath History of Present Illness 61 yo F asked to see about persistent hypoxemia. Pt was originally admitted on 12/04 for SOB, Recently had pneumonia, atrial fibrillation with RVR and needed cardioversion. Other issues included alcohol withdrawal. COPD, HLD?, HTN, Bipolar. She has mild aortic stenosis according to cardiology note. Does not think she had an electrocardiogram. A nuclear stress test 07/03 was negative. An echocardiogram done recently estimated her SPAP to be in high 30's with elevated RA pressures. Pf thinks she has had seven PNA's She is a never smoker. Currently pt feels she can only walk 10 ft before getting SOB. Last CXR showed a prominant pulmonary artery, a slowly resolving consolidation in the right mid lung field and a small infiltrate in the left mid lung field. She is getting IV Zosyn since 12/04. Today is the last day. She has been on IV Vancomycin She is also on a LABA/ICS, montelukast, IV Medrol since 12/11 She is on a nasal cannula @ 3 lpm with SpO2 between 91 and 99%.. Other VS have been ok except for rises in BP. Cr has been elevated but steady at about 2.05 and liver function has been ok. Pt is morbidly obese with BMI of 41. Has not been tested for ANIYA, does snore at night. There is a strong family Hx of CAD. Father had IA's at 39 and 67, Mother of an IA at 67 Pt has no occupational exposure. 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 Allergies and Home Medications Allergies Coded Allergies: cephalexin (Verified Allergy, Severe, Has received ceftriaxone in the past w/o issue, 11/29/21) Home Medications Amitriptyline HCl 10 Mg Tablet, 10 MG PO DAILY, (Reported) Apixaban 5 Mg Tablet, 5 MG PO DAILY, (Reported) Apixaban 5 Mg Tablet, 5 MG PO BID Prescribed by: CONI LEWIS JR, MD on 12/13/21 1111 Ascorbic Acid/Ascorbate Sodium 250 Mg Tab.chew, 250 MG PO DAILY, (Reported) Duloxetine HCl 30 Mg Capsule.dr, 30 MG PO DAILY, (Reported) Ferrous Sulfate 325 Mg (65 Mg Iron) Tablet, 325 MG PO DAILY, (Reported) Flecainide Acetate 100 Mg Tablet, 100 MG PO BID Prescribed by: CONI LEWIS JR, MD on 12/13/21 1111 Fluoxetine HCl 40 Mg Capsule, 40 MG PO DAILY, (Reported) Loperamide HCl 1 Mg/7.5 Ml Liquid, 1 MG PO Q4H PRN for DIARRHEA, (Reported) Metoprolol Succinate 50 Mg Tab.er.24h, 50 MG PO DAILY, (Reported) Metoprolol Succinate 50 Mg Tab.er.24h, 100 MG PO DAILY Prescribed by: CONI LEWIS JR, MD on 12/13/21 1113 Multivit-Minerals/Folic Acid 200 Mcg Tab.chew, 200 MCG PO DAILY, (Reported) Pramipexole Di-HCl 0.5 Mg Tablet, 0.5 MG PO HS, (Reported) Quetiapine Fumarate 400 Mg Tablet, 400 MG PO HS, (Reported) Past Medical/Social/Family Hx Patient Social History Marrital Status: single Employed/Student: unemployed Tobacco Use?: No Smoking Status: Former Smoker Use of E-Cig and/or Vaping dev: No Substance use?: No Alcohol Use?: Yes Alcohol type: Hard Liquor Additional alcohol type: vodka Alcohol Frequency: Daily no alcohol for 10 days Pt stated abuse/neglect: Yes Immunizations Up To Date Influenza Vaccine Up-to-Date: No; Not Current First/Initial COVID19 Vaccinat: Second COVID19 Vaccination Minor: February 2021 Tetanus Booster (TDap): Unknown Hepatitis A: No Hepatitis B: No Current Status status: No status: No Advance Directives: No Communicates: Verbally Primary Language: Irish Preferred Spoken Language: Irish Is interpretation needed?: No Sensory deficits: Vision impairment Implanted or Applied Medical D: None Review of Systems Constitutional: see HPI EENTM: see HPI Respiratory: see HPI Cardiovascular: see HPI Gastrointestinal: see HPI Genitourinary: see HPI Musculoskeletal: see HPI Skin: see HPI Psychiatric/Neurological: See HPI Sepsis Event Evaluation Height, Weight, BMI Height: '" Weight: lbs. oz. kg; 41.01 BMI Method: Exam Exam Patient acknowledged, consented, and participated in this virtual visit which was conducted using real time audio/video Vital Signs Date Time Temp Pulse Resp B/P (MAP) Pulse Ox O2 Delivery O2 Flow Rate FiO2 12/15/21 08:21 36.8 90 20 194/97 (129) 91 Nasal Cannula 3.00 12/15/21 08:00 Nasal Cannula 3.00 12/15/21 07:11 99 Nasal Cannula 3.00 12/15/21 00:55 36.4 77 20 168/80 (109) 99 Nasal Cannula 3.00 12/14/21 21:22 95 Nasal Cannula 3.00 12/14/21 20:05 Nasal Cannula 3.00 12/14/21 15:17 37.2 79 18 170/97 (121) 93 Nasal Cannula 1.50 12/14/21 15:05 36.0 80 99 28 12/14/21 15:03 99 Nasal Cannula 2.00 l I & O 12/15/21 07:00 Intake Total 2020 ml Balance 2020 ml Height & Weight Height: '" Weight: lbs. oz. kg; 41.01 BMI Method: General Appearance: No Apparent Distress, WD/WN, Chronically ill, Mild Distress, Obese HEENT: PERRL/EOMI, Normal ENT Inspection, Moist Mucous Membranes, Other (class 3 airway) Neck: Full Range of Motion, Normal Inspection, Non Tender Respiratory: Chest Non Tender, No Accessory Muscle Use, No Respiratory Distress, Other (RN dexcribes coarse crackles in post RUL and OLEGARIO) Cardiovascular: Regular Rate, Rhythm, No JVD, Normal Peripheral Pulses Gastrointestinal: normal bowel sounds, non tender, soft Extremity: Normal Capillary Refill, Normal Inspection, Normal Range of Motion, Non Tender, No Calf Tenderness, No Pedal Edema Neurologic/Psychiatric: Alert, Oriented x3, Depressed Affect Skin: Normal Color, Warm/Dry Lymphatic: No Adenopathy Results Lab Laboratory Tests 12/14/21 06:31 12/15/21 05:20 Assessment/Plan Assessment/Plan Pt's SOB is in part due to extensive PNA which is slowly resolving. If still has infiltrate by end of month I would do bronchoscopy if she has enough pulmonary reserve. CXR shows a enlarged pulmonary artery. I suspect she has at least moderate pulmonary hypertension from combination of obesity, probably severe ANIYA leading to nighttime hypoxia, As out patient I would do overnight test for ANIYA and if positive order CPAP. I suspect there is a component of CHF contributing to SOB-she was given IV Lasix today. Spoke to pt's attending. Time spent with patient (mins): 35 CHRISTOPHER ROE MD 6, 2022 11:17
[2021-12-15 16:01] VITALS: BP 209/91
[2021-12-15] MEDS: RT-ALBUTEROL/IPRATROPIUM 3 ML (DUONEB) VIAL INH PRN (18:34)
[2021-12-15] MEDS: DIAZEPAM INJ 10 MG/2 ML (VALIUM) SYR IVP PRN (18:43)
[2021-12-15 20:03] VITALS: BP 142/100
[2021-12-15] MEDS: QUEtiapine 200 MG (SEROquel) TAB IMMEDIATE RELEASE PO SCH (20:14)
[2021-12-15] MEDS: PRAMIPEXOLE 0.5 MG TAB (MIRAPEX) PO SCH (20:15)
--- NOTE | 2021-12-15 20:51 | Progress Note ---
Subjective Subjective/Events-last exam Pt seen at about 1030 am. She states she feels terrible, she still feels short of breath and is having pain in her back, reports she was going to have surgery but then has been sick and in and out of the hospital. Objective Exam Last Set of Vital Signs Vital Signs Date Time Temp Pulse Resp B/P (MAP) Pulse Ox O2 Delivery O2 Flow Rate FiO2 12/15/21 20:23 Nasal Cannula 3.00 12/15/21 20:03 36.4 77 20 142/100 (114) 95 12/14/21 15:05 28 Capillary Refill : I&O Intake and Output 12/14/21 23:59 Intake Total 1620 ml Balance 1620 ml Intake Oral 1420 ml IV Total 200 ml # Voids 12 # Bowel Movements 3 General: Alert, No Acute Distress Lungs: Other (markedly decreased air movement on right, but some air movement heard in upper field, left side clear) Heart: Regular Rate, No Murmurs Neuro: Normal Speech Psych/Mental Status: Other (flat affect) Results/Procedures Lab Laboratory Tests 12/15/21 05:20: White Blood Count 12.5H, Red Blood Count 3.07L, Hemoglobin 9.5L, Hematocrit 31L, Mean Corpuscular Volume 102H, Mean Corpuscular Hemoglobin 31, Mean Corpuscular Hemoglobin Concent 30L, Red Cell Distribution Width 17.0H, Platelet Count 255, Mean Platelet Volume 10.0, Immature Granulocyte % (Auto) 5, Neutrophils (%) (Auto) 81H, Lymphocytes (%) (Auto) 10L, Monocytes (%) (Auto) 4, Eosinophils (%) (Auto) 0, Basophils (%) (Auto) 0, Neutrophils # (Auto) 10.1H, Lymphocytes # (Auto) 1.2, Monocytes # (Auto) 0.5, Eosinophils # (Auto) 0.0, Basophils # (Auto) 0.0, Immature Granulocyte # (Auto) 0.7H, Sodium Level 141, Potassium Level 3.9, Chloride Level 105, Carbon Dioxide Level 23, Anion Gap 13, Blood Urea Nitrogen 26H, Creatinine 2.05H, Estimat Glomerular Filtration Rate 27, BUN/Creatinine Rat io 13, Glucose Level 179H, Calcium Level 9.4, Corrected Calcium 9.6, Total Bilirubin 0.7, Aspartate Amino Transf (AST/SGOT) 26, Alanine Aminotransferase (ALT/SGPT) 43, Alkaline Phosphatase 51, Total Protein 6.3L, Albumin 3.7 Assessment/Plan Assessment/Plan (1) Pneumonia Status: Acute Assessment & Plan: On Zosyn day 12, continues to have some difficulty breathing, repeat CXR yesterday with small improvement. Pulm consulted due to persistent hypoxia. (2) COPD (chronic obstructive pulmonary disease) Status: Chronic Assessment & Plan: With wheezing, possible acute exacerbation, is on solumedrol 80 mg q6 hours, has been on IV solumedrol since admit, anticipate tapering, will consult Pulmonology due to persistent respiratory issues. 12/15 decrease solumedrol from 80 mg q6 to q12 (3) Alcohol dependence Status: Chronic Assessment & Plan: Was discharge to inpatient rehab last stay but almost immediately readmitted inpatient for pneumonia, plan to go to [facility] again on d/c. (4) Primary hypertension Status: Chronic (5) Persistent atrial fibrillation Status: Chronic Assessment & Plan: Appreciate Cardiology recommendations. Apixaban was held early in admission due to anemia and transfusion. (6) Acute on chronic respiratory failure with hypoxemia Status: Acute (7) Anemia Assessment & Plan: Multifactorial, hemoglobin was normal at beginning of last a dmit, trended down slowly throughout. Is macrocytic, B12 is high. Iron normal, TIBC low and ferritin high suspicious for anemia of chronic disease developing but with underlying alcohol use and possible blood loss as well. Hemoccult positive, waiting on scopes given hemoglobin stable. s/p 1 unit transfusion on 12/09 (8) Acute kidney injury Status: Acute Assessment & Plan: Unclear etiology, started to trend down but now back up slightly (9) DVT prophylaxis Status: Acute Assessment & Plan: Not on pharmacologic due to anemia and possible GI bleeding. VICKI VICENTE MD Dec 15, 2021 20:51
[2021-12-15 23:21] VITALS: BP 140/63
[2021-12-16] VITALS (7 sets, daily range): BP systolic 134–185; BP diastolic 80–89
[2021-12-16] MEDS ORDERED: methylPREDNISolone 40 MG/ML (Solu-MEDROL) VIAL IV SCH
[2021-12-16] MEDS: PIPERACILLIN SODIUM/TAZOBACTAM 4.5 GM in NS (IVPB) 100 ML IV SCH ×3 (02:00→18:18)
[2021-12-16] MEDS: KCL 20 MEQ TAB (K-DUR) PO SCH (06:21)
[2021-12-16] MEDS: SUCRALFATE 1 GM (CARAFATE) TAB PO SCH ×4 (06:22→20:21)
[2021-12-16] MEDS: MULTIVIT W/MINERALS TAB (THERAGRAN M) PO SCH (06:22)
[2021-12-16] MEDS: DOCUSATE SODIUM 100 MG (COLACE) CAP PO SCH ×2 (07:46→21:09)
[2021-12-16] MEDS: SENNA W/DOCUSATE (SENOKOT S) TABLET PO SCH ×2 (07:46→21:09)
[2021-12-16] MEDS: LACTULOSE SYRUP 10GM/15ML (ENULOSE) 30ML UDC PO SCH ×2 (07:46→21:09)
[2021-12-16] MEDS: SENNOSIDES 8.6 MG (SENOKOT) TAB PO SCH ×2 (07:46→21:09)
[2021-12-16] MEDS: BENZONATATE 100 MG (TESSALON) CAPSULE PO SCH ×3 (08:19→20:22)
[2021-12-16] MEDS: AMITRIPTYLINE 10 MG (ELAVIL) TAB PO SCH (08:19)
[2021-12-16] MEDS: FLECAINIDE 100 MG (TAMBOCOR) TAB PO SCH ×2 (08:19→20:22)
[2021-12-16] MEDS: MONTELUKAST 10 MG (SINGULAIR) TAB PO SCH (08:19)
[2021-12-16] MEDS: FERROUS SULF 325 MG (IRON) TAB PO SCH (08:19)
[2021-12-16] MEDS: DULoxetine 30 MG (CYMBALTA) CAP PO SCH (08:19)
[2021-12-16] MEDS: ASCORBIC ACID (VIT C) 500 MG TABLET PO SCH (08:20)
[2021-12-16] MEDS: PANTOPRAZOLE 40 MG (PROTONIX) TAB PO SCH ×2 (08:20→20:21)
[2021-12-16] MEDS: FLUoxetine HCL 20 MG (PROzac) CAP PO SCH (08:20)
[2021-12-16] MEDS: FOLIC ACID 1 MG TAB PO SCH (08:20)
[2021-12-16] MEDS: GABAPENTIN 100 MG (NEURONTIN) CAP PO SCH ×3 (08:21→20:22)
[2021-12-16] MEDS: meTOproloL SUCCINATE 50 MG (TOPROL XL) TAB PO SCH (08:21)
[2021-12-16] MEDS: LACTOBACILLUS ACIDOPHILUS (PROBIOTIC) CAPSULE PO SCH ×3 (08:25→18:18)
[2021-12-16] MEDS: RT--FLUTICASONE/SALMETEROL 113-14 (AIRDUO RespiCLICK) IH SCH ×2 (09:00→20:28)
[2021-12-16] MEDS: RT-ALBUTEROL SULF 2.5 MG/3 ML PRE-MIX VIAL INH SCH ×2 (09:00→20:29)
--- NOTE | 2021-12-16 09:12 | Diagnostic Imaging Report ---
Indication: CHF and pneumonia. Time of Exam: 8:58 AM Correlation is made with prior chest from 12/14/2021. Heart is enlarged. Right hemidiaphragm is elevated. Bilateral infiltrates, right greater appears similar to 2 days earlier. No new infiltrate is detected. There is no effusion or pneumothorax. Impression: Stable bilateral infiltrates when compared to exam 2 days earlier. Dictated by: Dictated on workstation # [id number]
[2021-12-16 09:52] LABS: HEMATOCRIT 29 % (35-52); HEMOGLOBIN 8.9 g/dL (11.5-16.0); MEAN CORPUSCULAR HEMOGLOBIN 31 pg (25-34); MEAN CORPUSCULAR HGB CONC 31 g/dL (32-36); MEAN CORPUSCULAR VOLUME 102 fL (80-99); MEAN PLATELET VOLUME 9.7 fL (9.0-12.2); PLATELET COUNT 202 10^3/uL (130-400)
[2021-12-16 10:11] LABS: CALCIUM 8.9 MG/DL (8.5-10.1); CREATININE SERUM 1.95 MG/DL (0.60-1.30); POTASSIUM 3.4 MMOL/L (3.6-5.0)
--- NOTE | 2021-12-16 11:17 | Pulmonary Progress Note ---
Subjective Date Seen by a Provider: Dec 16, 2021 Time Seen by a Provider: 09:00 Subjective/Events-last exam Available chart/vitals/labs/images reviewed. Video assessment done using telemetry Vidyo pad camera, rest of exam as per RN. Discussion with the RN, exam as per RN. Hospital course Patient today states her breathing is about the same she still has bilateral leg edema right more than the left. She has been on anticoagulant therapy. Today I ordered a chest x-ray which showed very minimal enlarged no improvement. However the right-sided densities I feel is a fluid in the minor fissure as well as the major fissure rather than a pneumonia. However patient does have a pulmonary congestive changes associated with elevated BNP suggestive of predominant problem likely is congestive heart failure rather than pneumonia. She was auscultated by bedside RN which revealed bilateral rales without any significant rhonchi. Review of Systems ros per rn Sepsis Event Evaluation Height, Weight, BMI Height: '" Weight: lbs. oz. kg; 40.75 BMI Method: Exam Exam Patient acknowledged, consented, and participated in this virtual visit which was conducted using real time audio/video Vital Signs Date Time Temp Pulse Resp B/P (MAP) Pulse Ox O2 Delivery O2 Flow Rate FiO2 12/16/21 08:10 36.0 85 18 175/80 (111) 97 Nasal Cannula 3.00 12/16/21 08:00 36.1 78 18 185/88 (120) 96 Nasal Cannula 3.00 12/16/21 03:42 36.4 86 20 134/85 (101) 94 Nasal Cannula 3.00 12/15/21 23:21 36.3 79 22 140/63 (88) 92 Nasal Cannula 3.00 12/15/21 21:19 97 Nasal Cannula 3.00 12/15/21 20:23 Nasal Cannula 3.00 12/15/21 20:03 36.4 77 20 142/100 (114) 95 Nasal Cannula 3.00 12/15/21 18:35 95 Nasal Cannula 3.00 12/15/21 16:01 36.4 70 20 209/91 (130) 91 Nasal Cannula 3.00 I & O 12/16/21 07:00 Intake Total 3260 ml Balance 3260 ml Height & Weight Height: '" Weight: lbs. oz. kg; 40.75 BMI Method: General Appearance: No Apparent Distress, WD/WN, Chronically ill, Mild Distress, Obese HEENT: PERRL/EOMI, Normal ENT Inspection, Moist Mucous Membranes, Other (class 3 airway) Neck: Full Range of Motion, Normal Inspection, Non Tender Respiratory: Chest Non Tender, No Accessory Muscle Use, No Respiratory Distress, Other (RN dexcribes coarse crackles in post RUL and OLEGARIO) Cardiovascular: Regular Rate, Rhythm, No JVD, Normal Peripheral Pulses Gastrointestinal: normal bowel sounds, non tender, soft Extremity: Normal Capillary Refill, Normal Inspection, Normal Range of Motion, Non Tender, No Calf Tenderness, No Pedal Edema Neurologic/Psychiatric: Alert, Oriented x3, Depressed Affect Skin: Normal Color, Warm/Dry Lymphatic: No Adenopathy Other comments PE PER RN Results Lab Laboratory Tests 12/15/21 05:20 12/16/21 09:43 Assessment/Plan Assessment/Plan 1. Acute hypoxic respiratory failure clinically improving. 2. Acute on chronic congestive heart failure with pulmonary congestive changes and possible fluid in the minor and major fissure on the right side. 3. Possible additional pneumonia. 4. Morbid obesity 5. History of active smoking 6. History of congestive cardiomyopathy with an estimated ejection fraction of 18% 7. Chronic atrial fibrillation not on anticoagulant therapy 8. Anemia secondary to combination of chronic disease and as well as possibly mild intermittent GI bleed. General surgery on the case for monitoring for GI bleed. Recommendations 1. We will further decrease IV Solu-Medrol and continue DuoNeb nebulizer treatment 2. Suggest aggressive diuretic therapy PER CARDIOLOGY and monitor BUN and creatinine. 3. If her right-sided densities does not improve with the diuretic therapy I would recommend to get the CT of the chest without contrast. 4. Discussed with the patient via video visit and with the bedside RN. 5. Continue anticoagulant therapy per cardiology and monitor hemoglobin. Critical Care: Critically Ill Patient Time spent with patient (mins): 20 VENKAT MONTGOMERY MD Dec 16, 2021 11:17
--- NOTE | 2021-12-16 11:38 | Cardiology Progress Note ---
Progress Note-Cardiology Events since last exam Date Seen by Provider: Dec 16, 2021 Time Seen by Provider: 11:37 Events since last exam I am following her due to atrial fibrillation. On 12/15 her blood pressure became markedly elevated and she required extra doses of beta-tahir. She did diurese with intravenous Lasix that was given on 12/15 but she still has significant peripheral edema and some shortness of breath. She denies chest pain, palpitations, or syncope. Certain portions of this document may have been dictated utilizing voice recognition technology. Inherent to this technology, typographical and grammatical errors may exist. As much as I am diligent to identify and correct these mistakes, some errors may remain in the document. Vitals Last set of Vitals Signs Vital Signs 12/14/21 12/16/21 15:05 08:10 Temp 36.0 Pulse 85 Resp 18 B/P (MAP) 175/80 (111) Pulse Ox 97 O2 Delivery Nasal Cannula O2 Flow Rate 3.00 FiO2 28 Labs Labs Laboratory Tests 12/16/21 09:43 Exam Vital Signs Vital Signs Date Time Temp Pulse Resp B/P (MAP) Pulse Ox O2 Delivery O2 Flow Rate FiO2 12/16/21 08:10 36.0 85 18 175/80 (111) 97 Nasal Cannula 3.00 12/14/21 15:05 28 Physical Exam General: Alert. No acute distress. She is obese. Eye: No xanthelasma. HENT: Normocephalic. Neck: Jugular venous pressure does not appear elevated. Respiratory: Lungs are clear to auscultation. Respirations are non-labored. Breath sounds are equal. Symmetrical chest wall expansion. Cardiovascular: Normal rate. Regular rhythm. Distant S1/S2. 2/6 systolic ejection murmur. No gallop. 2+ bilateral pretibial edema. Gastrointestinal: Soft. Normal bowel sounds. Skin: Warm. Dry. Neurologic: Alert and oriented to person, place, time. Cranial nerves 3-11 grossly intact. Psychiatric: Cooperative. Appropriate mood & affect. Labs Laboratory Tests Test 12/16/21 09:43 Range/Units White Blood Count 15.0 H 4.3-11.0 10^3/uL Red Blood Count 2.84 L 3.80-5.11 10^6/uL Hemoglobin 8.9 L 11.5-16.0 g/dL Hematocrit 29 L 35-52 % Mean Corpuscular Volume 102 H 80-99 fL Mean Corpuscular Hemoglobin 31 25-34 pg Mean Corpuscular Hemoglobin Concent 31 L 32-36 g/dL Red Cell Distribution Width 17.2 H 10.0-14.5 % Platelet Count 202 130-400 10^3/uL Mean Platelet Volume 9.7 9.0-12.2 fL Sodium Level 141 135-145 MMOL/L Potassium Level 3.4 L 3.6-5.0 MMOL/L Chloride Level 101 98-107 MMOL/L Carbon Dioxide Level 24 21-32 MMOL/L Anion Gap 16 H 5-14 MMOL/L Blood Urea Nitrogen 28 H 7-18 MG/DL Creatinine 1.95 H 0.60-1.30 MG/DL Estimat Glomerular Filtration Rate 29 BUN/Creatinine Ratio 14 Glucose Level 104 70-105 MG/DL Calcium Level 8.9 8.5-10.1 MG/DL B-Type Natriuretic Peptide 2165.1 H <100.0 PG/ML Diagnosis/Problems Diagnosis/Problems (1) Persistent atrial fibrillation Status: Chronic Assessment & Plan: No signs of recurrence on flecainide. I did lower the dose of flecainide and she has remained in sinus rhythm. She is on beta-tahir for rate control in the event she has recurrent atrial fibrillation and apixaban for stroke prophylaxis. Since she had a blood transfusion, her hemoglobin level now appears to be coming up. She has been taking iron tablets at home. At this point, from a cardiac standpoint, we can probably hold off on endoscopies until after discharge. (2) Pulmonary vascular congestion Assessment & Plan: Her chest x-ray from 12/14 showed some evidence of pulmonary vascular congestion. I suspect this is just related to volume overload due to blood transfusion, intravenous steroids, intravenous iron as well as intravenous antibiotics and intravenous fluids she has received. I do not believe this is heart failure. I will give her another dose of intravenous furosemide. (3) Primary hypertension Status: Chronic Assessment & Plan: Blood pressures have improved on the higher dose of metoprolol. However, blood pressure was elevated on 12/15. I asked the nurse to give her an extra dose of metoprolol. I suspect her blood pressure will improve once the steroids are decreased. (4) Aortic stenosis Status: Chronic Assessment & Plan: This has been in a mild range and should not be causing symptoms but will need to be followed. (5) Lower extremity edema Assessment & Plan: I suspect this is due to immobility while she has been in the hospital as well as intravenous fluids and intravenous steroids. I do not believe she has heart failure. Given the persistent peripheral edema and now ev idence of pulmonary congestion on her chest x-ray I will give her another dose of intravenous furosemide as outlined above. (6) Acute kidney injury Status: Acute Assessment & Plan: Her creatinine went up while she was receiving intravenous antibiotics for the pneumonia but has now stabilized although is higher than she was in the past. Exact etiology unclear. Apparently pharmacy has determined that the combination of Zosyn and vancomycin may have done this and the vancomycin has now been discontinued. We will continue to monitor her creatinine level closely. (7) Anemia Assessment & Plan: Etiology unclear. Her hemoglobin was normal mid November. some of the anemia could be related to her alcohol abuse. As above, she has now received 1 blood transfusion. General surgery is following the patient in regards to deciding about inpatient versus outpatient endoscopies. I will give her 1 iron infusion. (8) Acute on chronic respiratory failure with hypoxemia Status: Acute Assessment & Plan: Most likely due to pneumonia for which she is being treated. (9) Alcohol dependence Status: Chronic Assessment & Plan: She is planning to go back to an inpatient alcohol rehabilitation facility following discharge. CONI LEWIS JR, MD Dec 16, 2021 11:38
[2021-12-16] MEDS ORDERED: FUROSEMIDE 40 MG/4 ML INJ (LASIX) IVP NR (11:45)
[2021-12-16] MEDS: methylPREDNISolone 40 MG/ML (Solu-MEDROL) VIAL IV SCH (11:46)
[2021-12-16] MEDS: LOPERAMIDE SUSP 2 MG/15 ML (IMODIUM) UDC PO PRN ×2 (16:09→20:23)
--- NOTE | 2021-12-16 17:44 | Progress Note ---
Subjective Subjective/Events-last exam Seen walking the halls this morning, appears more upbeat, but still feels short of breath. Objective Exam Last Set of Vital Signs Vital Signs Date Time Temp Pulse Resp B/P (MAP) Pulse Ox O2 Delivery O2 Flow Rate FiO2 12/16/21 16:06 36.2 75 16 185/82 (116) 95 Nasal Cannula 3.00 12/14/21 15:05 28 Capillary Refill : I&O Intake and Output 12/16/21 00:00 Intake Total 3280 ml Balance 3280 ml Intake Oral 3080 ml IV Total 200 ml # Voids 11 # Bowel Movements 5 General: Alert, No Acute Distress Lungs: Other (decreased air movement on right, bilateral expiratory wheeze) Heart: Regular Rate Psych/Mental Status: Mood NL Results/Procedures Lab Laboratory Tests 12/16/21 09:43: White Blood Count 15.0H, Red Blood Count 2.84L, Hemoglobin 8.9L, Hematocrit 29L, Mean Corpuscular Volume 102H, Mean Corpuscular Hemoglobin 31, Mean Corpuscular Hemoglobin Concent 31L, Red Cell Distribution Width 17.2H, Platelet Count 202, Mean Platelet Volume 9.7, Sodium Level 141, Potassium Level 3.4L, Chloride Level 101, Carbon Dioxide Level 24, Anion Gap 16H, Blood Urea Nitrogen 28H, Creatinine 1.95H, Estimat Glomerular Filtration Rate 29, BUN/Creatinine Ratio 14, Glucose Level 104, Calcium Level 8.9, B-Type Natriuretic Peptide 2165.1H Assessment/Plan Assessment/Plan (1) Pneumonia Status: Acute Assessment & Plan: On Zosyn day 13, continues to have some difficulty breathing, repeat CXR yesterday with small improvement. Pulm consulted due to persistent hypoxia and suspect delayed healing of pneumonia and sleep apnea as well as CHF component. Consider bronch if not pneumonia not resolved by the end of the month. (2) COPD (chronic obstructive pulmonary disease) Status: Chronic Assessment & Plan: With wheezing, possible acute exacerbation, is on solumedrol 80 mg q6 hours, has been on IV solumedrol since admit, anticipate tapering, will consult Pulmonology due to persistent respiratory issues. 12/15 decrease solumedrol from 80 mg q6 to q12 12/16 will change to oral taper (3) Alcohol dependence Status: Chronic Assessment & Plan: Was discharge to inpatient rehab last stay but almost immediately readmitted inpatient for pneumonia, plan to go to [facility] again on d/c. (4) Primary hypertension Status: Chronic (5) Persistent atrial fibrillation Status: Chronic Assessment & Plan: Appreciate Cardiology recommendations. Apixaban was held early in admission due to anemia and transfusion. (6) Acute on chronic respiratory failure with hypoxemia Status: Acute (7) Anemia Assessment & Plan: Multifactorial, hemoglobin was normal at beginning of last admit, trended down slowly throughout. Is macrocytic, B12 is high. Iron normal, TIBC low and ferritin high suspicious for anemia of chronic disease developing but with underlying alcohol use and possible blood loss as well. Hemoccult positive, waiting on scopes given hemoglobin stable. s/p 1 unit transfusion on 12/09 (8) Acute kidney injury Status: Acute Assessment & Plan: Unclear etiology, started to trend down but seems to be staying around 2.0 at this point. (9) DVT prophylaxis Status: Acute Assessment & Plan: Not on pharmacologic due to anemia and possible GI bleeding. VICKI VICENTE MD Dec 16, 2021 17:44
[2021-12-16] MEDS: QUEtiapine 200 MG (SEROquel) TAB IMMEDIATE RELEASE PO SCH (20:22)
[2021-12-16] MEDS: MELATONIN 3 MG TABLET PO PRN (20:22)
[2021-12-16] MEDS: PRAMIPEXOLE 0.5 MG TAB (MIRAPEX) PO SCH (20:22)
--- NOTE | 2021-12-16 21:32 | Progress Note - Surgery ---
Subjective Date Seen by a Provider: Dec 16, 2021 Time Seen by a Provider: 17:00 Subjective/Events-last exam Breathing a little better. Hgb stable. No blood in stools. Denies any new complaints. Tolerating diet. Denies n/v fever sweats chills or chest pain. Chest x ray stable b/l infiltrates. Objective Exam Vital Signs Date Time Temp Pulse Resp B/P (MAP) Pulse Ox O2 Delivery O2 Flow Rate FiO2 12/16/21 20:30 96 Nasal Cannula 3.00 12/16/21 19:28 36.5 87 22 171/89 (116) 94 Nasal Cannula 3.00 12/16/21 16:06 36.2 75 16 185/82 (116) 95 Nasal Cannula 3.00 12/16/21 12:00 36.2 79 18 173/82 (112) 95 Nasal Cannula 3.00 12/16/21 08:10 36.0 85 18 175/80 (111) 97 Nasal Cannula 3.00 12/16/21 08:00 Nasal Cannula 6.00 12/16/21 08:00 36.1 78 18 185/88 (120) 96 Nasal Cannula 3.00 12/16/21 03:42 36.4 86 20 134/85 (101) 94 Nasal Cannula 3.00 12/15/21 23:21 36.3 79 22 140/63 (88) 92 Nasal Cannula 3.00 I & O 12/16/21 07:00 Intake Total 3260 ml Balance 3260 ml Capillary Refill : General Appearance: No Apparent Distress, WD/WN, Chronically ill, Obese HEENT: PERRL/EOMI, Normal ENT Inspection, Moist Mucous Membranes, Other (class 3 airway) Neck: Full Range of Motion, Normal Inspection, Non Tender Respiratory: Chest Non Tender, No Accessory Muscle Use, No Respiratory Distress, Other (RN dexcribes coarse crackles in post RUL and OLEGARIO) Cardiovascular: Regular Rate, Rhythm, No JVD, Normal Peripheral Pulses Gastrointestinal: normal bowel sounds, non tender, soft Extremity: Normal Capillary Refill, Normal Inspection, Normal Range of Motion, Non Tender, No Calf Tenderness, No Pedal Edema Neurologic/Psychiatric: Alert, Oriented x3, Depressed Affect Skin: Normal Color, Warm/Dry Lymphatic: No Adenopathy Results Lab Laboratory Tests 12/16/21 09:43: White Blood Count 15.0H, Red Blood Count 2.84L, Hemoglobin 8.9L, Hematocrit 29L, Mean Corpuscular Volume 102H, Mean Corpuscular Hemoglobin 31, Mean Corpuscular Hemoglobin Concent 31L, Red Cell Distribution Width 17.2H, Platelet Count 202, Mean Platelet Volume 9.7, Sodium Level 141, Potassium Level 3.4L, Chloride Level 101, Carbon Dioxide Level 24, Anion Gap 16H, Blood Urea Nitrogen 28H, Creatinine 1.95H, Estimat Glomerular Filtration Rate 29, BUN/Creatinine Ratio 14, Glucose Level 104, Calcium Level 8.9, B-Type Natriuretic Peptide 2165.1H Assessment/Plan Assessment/Plan Assessment/Plan anemia GERD Etoh Withdrawal Pneumonia Afib rvr fci anticoagulation hgb stable, follow and transfuse as needed breathing symptoms improving today- lasix, chest x ray with b/l infiltrates stable, continue improving respiratory status on anticoagulation for Afib Protonix BID/ carafate has not had colonoscopy for greater than 10 years, would recommend egd/colonoscopy inpatient vs outpatient since hgb stable and currently on Eliquis likely outpatient and want respiratory status to improve unless emergent encouraged using IS, patient ambulating some will sign off, call if needed outpatient follow up KEYLA ZELAYA DO Dec 16, 2021 21:32
[2021-12-17] VITALS (7 sets, daily range): BP systolic 125–180; BP diastolic 63–83
[2021-12-17] MEDS: methylPREDNISolone 40 MG/ML (Solu-MEDROL) VIAL IV SCH ×2 (00:44→12:36)
[2021-12-17] MEDS: PIPERACILLIN SODIUM/TAZOBACTAM 4.5 GM in NS (IVPB) 100 ML IV SCH ×2 (02:03→10:19)
[2021-12-17 05:34] LABS: HEMATOCRIT 27 % (35-52); HEMOGLOBIN 8.6 g/dL (11.5-16.0); MEAN CORPUSCULAR HEMOGLOBIN 31 pg (25-34); MEAN CORPUSCULAR HGB CONC 31 g/dL (32-36); MEAN CORPUSCULAR VOLUME 100 fL (80-99); MEAN PLATELET VOLUME 10.2 fL (9.0-12.2); PLATELET COUNT 172 10^3/uL (130-400); WHITE BLOOD COUNT 13.3 10^3/uL (4.3-11.0)
[2021-12-17 05:45] LABS: POTASSIUM 3.2 MMOL/L (3.6-5.0)
[2021-12-17 05:46] LABS: CALCIUM 8.7 MG/DL (8.5-10.1)
[2021-12-17 05:50] LABS: CREATININE SERUM 1.99 MG/DL (0.60-1.30)
[2021-12-17] MEDS: KCL 20 MEQ TAB (K-DUR) PO SCH (06:05)
[2021-12-17] MEDS: SUCRALFATE 1 GM (CARAFATE) TAB PO SCH ×4 (06:05→20:25)
[2021-12-17] MEDS: MULTIVIT W/MINERALS TAB (THERAGRAN M) PO SCH (06:05)
[2021-12-17] MEDS: DIAZEPAM INJ 10 MG/2 ML (VALIUM) SYR IVP PRN (07:56)
[2021-12-17] MEDS: LACTOBACILLUS ACIDOPHILUS (PROBIOTIC) CAPSULE PO SCH ×3 (07:57→18:26)
[2021-12-17] MEDS ORDERED: KCL 20 MEQ TAB (K-DUR) PO ONE (08:00)
[2021-12-17] MEDS: RT--FLUTICASONE/SALMETEROL 113-14 (AIRDUO RespiCLICK) IH SCH ×2 (08:14→20:31)
[2021-12-17] MEDS: RT-ALBUTEROL SULF 2.5 MG/3 ML PRE-MIX VIAL INH SCH ×2 (08:14→20:32)
--- NOTE | 2021-12-17 08:22 | Cardiology Progress Note ---
Progress Note-Cardiology Events since last exam Date Seen by Provider: Dec 17, 2021 Time Seen by Provider: 08:21 Events since last exam I am following her due to atrial fibrillation and volume overload probably re lated to prolonged course of intravenous steroids. She was given a dose of IV furosemide on 12/15 and again on 12/16. Her peripheral edema has improved but not completely resolved. Her breathing is much better. She denies chest pain. From time to time she will have a quick fluttering in her chest without associated complaints. She denies syncope. Certain portions of this document may have been dictated utilizing voice recognition technology. Inherent to this technology, typographical and gra mmatical errors may exist. As much as I am diligent to identify and correct these mistakes, some errors may remain in the document. Vitals Last set of Vitals Signs Vital Signs 12/14/21 12/17/21 12/17/21 15:05 08:00 08:14 Temp 36.2 Pulse 93 Resp 18 B/P (MAP) 131/63 (85) Pulse Ox 98 O2 Delivery Nasal Cannula O2 Flow Rate 3.00 FiO2 28 Labs Labs Laboratory Tests 12/16/21 09:43 12/17/21 05:23 Exam Vital Signs Vital Signs Date Time Temp Pulse Resp B/P (MAP) Pulse Ox O2 Delivery O2 Flow Rate FiO2 12/17/21 08:14 98 Nasal Cannula 3.00 12/17/21 08:00 36.2 93 18 131/63 (85) 12/14/21 15:05 28 Physical Exam General: Alert. No acute distress. She is obese Eye: No xanthelasma. HENT: Normocephalic. Neck: Jugular venous pressure does not appear elevated. Respiratory: Lungs are clear to auscultation. Respirations are non-labored. Breath sounds are equal. Symmetrical chest wall expansion. Cardiovascular: Normal rate. Regular rhythm. Distant S1/S2. 2/6 systolic ejection murmur. No gallop. 2+ bilateral pretibial edema without venous stasis changes. Gastrointestinal: Soft. Normal bowel sounds. Skin: Warm. Dry. Neurologic: Alert and oriented to person, place, time. Cranial nerves 3-11 grossly intact. Psychiatric: Cooperative. Appropriate mood & affect. Labs Laboratory Tests Test 12/16/21 09:43 12/17/21 05:23 Range/Units White Blood Count 15.0 H 13.3 H 4.3-11.0 10^3/uL Red Blood Count 2.84 L 2.74 L 3.80-5.11 10^6/uL Hemoglobin 8.9 L 8.6 L 11.5-16.0 g/dL Hematocrit 29 L 27 L 35-52 % Mean Corpuscular Volume 102 H 100 H 80-99 fL Mean Corpuscular Hemoglobin 31 31 25-34 pg Mean Corpuscular Hemoglobin Concent 31 L 31 L 32-36 g/dL Red Cell Distribution Width 17.2 H 17.4 H 10.0-14.5 % Platelet Count 202 172 130-400 10^3/uL Mean Platelet Volume 9.7 10.2 9.0-12.2 fL Sodium Level 141 140 135-145 MMOL/L Potassium Level 3.4 L 3.2 L 3.6-5.0 MMOL/L Chloride Level 101 99 98-107 MMOL/L Carbon Dioxide Level 24 26 21-32 MMOL/L Anion Gap 16 H 15 H 5-14 MMOL/L Blood Urea Nitrogen 28 H 28 H 7-18 MG/DL Creatinine 1.95 H 1.99 H 0.60-1.30 MG/DL Estimat Glomerular Filtration Rate 29 28 BUN/Creatinine Ratio 14 14 Glucose Level 104 165 H 70-105 MG/DL Calcium Level 8.9 8.7 8.5-10.1 MG/DL B-Type Natriuretic Peptide 2165.1 H <100.0 PG/ML Diagnosis/Problems Diagnosis/Problems (1) Persistent atrial fibrillation Status: Chronic Assessment & Plan: No signs of recurrence on flecainide. I did lower the dose of flecainide and she has remained in sinus rhythm. She is on beta-tahir for rate control in the event she has recurrent atrial fibrillation and apixaban for stroke prophylaxis. Since she had a blood transfusion, her hemoglobin level now appears to be coming up. She has been taking iron tablets at home. At this point, from a cardiac standpoint, we can probably hold off on endoscopies until after discharge. I have ordered another electrocardiogram for this morning. Dr. Clements will be covering for the weekend and please call him if you have any questions. (2) Pulmonary vascular congestion Assessment & Plan: Her chest x-ray from 12/14 showed some evidence of pulmonary vascular congestion. I suspect this is just related to volume overload due to blood transfusion, intravenous steroids, intravenous iron as well as intravenous antibiotics and intravenous fluids she has received. I do not believe this is heart failure. I will give her another dose of intravenous furosemide today. Again, this is not heart failure but rather, fluid retention related to intravenous steroids. (3) Lower extremity edema Assessment & Plan: I suspect this is due to immobility while she has been in the hospital as well as intravenous fluids and intravenous steroids. I do not believe she has heart failure but rather, fluid retention related to the steroids. I will give her another dose of intravenous furosemide today. (4) Primary hypertension Status: Chronic Assessment & Plan: Blood pressures have improved on the higher dose of metoprolol and as the intravenous steroid has been decreased. (5) Aortic stenosis Status: Chronic Assessment & Plan: This has been in a mild range and should not be causing symptoms but will need to be followed. (6) Acute kidney injury Status: Acute Assessment & Plan: Her creatinine went up while she was receiving intravenous antibiotics for the pneumonia but has now stabilized although is higher than she was in the past. Exact etiology unclear. Apparently pharmacy has determined that the combination of Zosyn and vancomycin may have done this and the vancomycin has now been discontinued. We will continue to monitor her creatinine level closely. (7) Anemia Assessment & Plan: Etiology unclear. Her hemoglobin was normal mid November. some of the anemia could be related to her alcohol abuse. As above, she has now received 1 blood transfusion. General surgery is following the patient in regards to deciding about inpatient versus outpatient endoscopies. I will give her 1 iron infusion. (8) Acute on chronic respiratory failure with hypoxemia Status: Acute Assessment & Plan: Most likely due to pneumonia for which she is being treated. (9) Alcohol dependence Status: Chronic Assessment & Plan: She is planning to go back to an inpatient alcohol rehabilitation facility following discharge. CONI LEWIS JR, MD Dec 17, 2021 08:22
[2021-12-17] MEDS ORDERED: FUROSEMIDE 40 MG/4 ML INJ (LASIX) IVP ONE (08:30)
--- NOTE | 2021-12-17 08:53 | Tele-ICU Progress Note ---
Subjective Date Seen by a Provider: Dec 17, 2021 Time Seen by a Provider: 07:45 Subjective/Events-last exam This virtual visit was conducted using real time audio/video.Please see Dr. Elizabeth's note also. Thank you for asking us to see this patient for respiratory insufficiency due to pna. Also COPD, undiagnosed obesity hypoventilation syndrome and obstructive sleep apnea. Recent events: doing much better and ambulating. PE: VSS. O2 sat 95 % on 2 LPM HEENT: No obvious masses, adenopathy or JVD. Chest: clear to auscultation. Diminished CV: RRR S1 S2 No murmur or added sounds. Abd: Non-tender. Bowel sounds Y. : Unremarkable. [place] N. HOG MAN/psychiatric: Grossly intact. No obvious focal findings. Extremities: 1+ edema. Capillary refill < 3 seconds. Skin: unremarkable. Results: Elevated .BUN 28, Creat 1.99 Decreased Hb 8.6, K 3.2. B.38/46/65. CXR: R basal infilt., hyperinflated c/w COPD. Available chart/ vitals / labs / images reviewed. Video assessment done using teleICU camera, rest of exam as per RN. A/P: Respiratory insufficiency due to pna. Also COPD, undiagnosed obesity hypoventilation syndrome and obstructive sleep apnea. Continue present management with O2, Airduo, Duonebs, Singulaire. Would d/c medrol and give prednisone 40 mg/day PO for 5 days. Monitor for increasing oxygenation needs and/or need for intubation. Critical Care: critically ill patient. Cont.abx. Replace K. Consider bronchoscopy if incomplete resolution of XR opacity. Consider sleep study when at baseline. Discussed with ARNEL Dempsey. Asked RN to reach out to eICU if any questions or concerns later. Time spent with patient/coordination of care with other health professionals (mins):40 Sepsis Event Evaluation Height, Weight, BMI Height: '" Weight: lbs. oz. kg; 40.61 BMI Method: Exam Exam Patient acknowledged, consented, and participated in this virtual visit which was conducted using real time audio/video Vital Signs Date Time Temp Pulse Resp B/P (MAP) Pulse Ox O2 Delivery O2 Flow Rate FiO2 12/17/21 03:29 36.1 80 20 125/73 (90) 97 Nasal Cannula 3.00 12/16/21 23:47 36.0 67 18 145/83 (103) 97 Nasal Cannula 3.00 12/16/21 20:30 96 Nasal Cannula 3.00 12/16/21 20:25 Nasal Cannula 3.00 12/16/21 19:28 36.5 87 22 171/89 (116) 94 Nasal Cannula 3.00 12/16/21 16:06 36.2 75 16 185/82 (116) 95 Nasal Cannula 3.00 12/16/21 12:00 36.2 79 18 173/82 (112) 95 Nasal Cannula 3.00 I & O 12/17/21 07:00 Intake Total 2730 ml Balance 2730 ml Height & Weight Height: '" Weight: lbs. oz. kg; 40.61 BMI Method: General Appearance: No Apparent Distress, WD/WN, Chronically ill, Obese HEENT: PERRL/EOMI, Normal ENT Inspection, Moist Mucous Membranes, Other (class 3 airway) Neck: Full Range of Motion, Normal Inspection, Non Tender Respiratory: Chest Non Tender, No Accessory Muscle Use, No Respiratory Distress, Other (RN dexcribes coarse crackles in post RUL and OLEGARIO) Cardiovascular: Regular Rate, Rhythm, No JVD, Normal Peripheral Pulses Gastrointestinal: normal bowel sounds, non tender, soft Extremity: Normal Capillary Refill, Normal Inspection, Normal Range of Motion, Non Tender, No Calf Tenderness, No Pedal Edema Neurologic/Psychiatric: Alert, Oriented x3, Depressed Affect Skin: Normal Color, Warm/Dry Lymphatic: No Adenopathy Results Lab Laboratory Tests 12/16/21 09:43 12/17/21 05:23 Assessment/Plan Assessment/Plan See free text. Critical Care: Critically Ill Patient ERA SOLORIO MD Dec 17, 2021 08:53
[2021-12-17] MEDS: FERROUS SULF 325 MG (IRON) TAB PO SCH (10:20)
[2021-12-17] MEDS: DULoxetine 30 MG (CYMBALTA) CAP PO SCH (10:20)
[2021-12-17] MEDS: FLECAINIDE 100 MG (TAMBOCOR) TAB PO SCH ×2 (10:21→20:25)
[2021-12-17] MEDS: ASCORBIC ACID (VIT C) 500 MG TABLET PO SCH (10:21)
[2021-12-17] MEDS: BENZONATATE 100 MG (TESSALON) CAPSULE PO SCH ×3 (10:21→20:25)
[2021-12-17] MEDS: AMITRIPTYLINE 10 MG (ELAVIL) TAB PO SCH (10:21)
[2021-12-17] MEDS: MONTELUKAST 10 MG (SINGULAIR) TAB PO SCH (10:21)
[2021-12-17] MEDS: meTOproloL SUCCINATE 50 MG (TOPROL XL) TAB PO SCH (10:21)
[2021-12-17] MEDS: PANTOPRAZOLE 40 MG (PROTONIX) TAB PO SCH ×2 (10:22→20:25)
[2021-12-17] MEDS: FOLIC ACID 1 MG TAB PO SCH (10:22)
[2021-12-17] MEDS: SENNOSIDES 8.6 MG (SENOKOT) TAB PO SCH ×2 (10:22→20:29)
[2021-12-17] MEDS: DOCUSATE SODIUM 100 MG (COLACE) CAP PO SCH ×2 (10:22→20:29)
[2021-12-17] MEDS: GABAPENTIN 100 MG (NEURONTIN) CAP PO SCH ×3 (10:22→20:25)
[2021-12-17] MEDS: FLUoxetine HCL 20 MG (PROzac) CAP PO SCH (10:22)
[2021-12-17] MEDS: LACTULOSE SYRUP 10GM/15ML (ENULOSE) 30ML UDC PO SCH ×2 (10:23→20:29)
[2021-12-17] MEDS: SENNA W/DOCUSATE (SENOKOT S) TABLET PO SCH ×2 (10:24→20:29)
--- NOTE | 2021-12-17 14:25 | Progress Note ---
Subjective Subjective/Events-last exam Pt states she is feeling much better today, she is smiling and speaking in full sentences. Sitting up in chair and does not appear short of breath today. Objective Exam Last Set of Vital Signs Vital Signs Date Time Temp Pulse Resp B/P (MAP) Pulse Ox O2 Delivery O2 Flow Rate FiO2 12/17/21 12:00 36.4 70 18 157/74 (101) 98 Nasal Cannula 3.00 12/14/21 15:05 28 Capillary Refill : I&O Intake and Output 12/17/21 00:00 Intake Total 3080 ml Balance 3080 ml Intake Oral 2880 ml IV Total 200 ml # Voids 19 # Bowel Movements 7 General: Alert, No Acute Distress Lungs: Other (ronchi on right, but markedly improved air movement) Heart: Regular Rate Extremities: Other (localized pitting edema over right anterior riddle) Neuro: Normal Speech Psych/Mental Status: Mood NL Results/Procedures Lab Laboratory Tests 12/17/21 05:23: White Blood Count 13.3H, Red Blood Count 2.74L, Hemoglobin 8.6L, Hematocrit 27L, Mean Corpuscular Volume 100H, Mean Corpuscular Hemoglobin 31, Mean Corpuscular Hemoglobin Concent 31L, Red Cell Distribution Width 17.4H, Platelet Count 172, Mean Platelet Volume 10.2, Sodium Level 140, Potassium Level 3.2L, Chloride Level 99, Carbon Dioxide Level 26, Anion Gap 15H, Blood Urea Nitrogen 28H, Creatinine 1.99H, Estimat Glomerular Filtration Rate 28, BUN/Creatinine Ratio 14, Glucose Level 165H, Calcium Level 8.7 Assessment/Plan Assessment/Plan (1) Pneumonia Status: Acute Assessment & Plan: On Zosyn day 14, continues to have some difficulty breathing, repeat CXR yesterday with small improvement. Pulm consulted due to persistent hypoxia and suspect delayed healing of pneumonia and sleep apnea as well as CHF component. Consider bronch if not pneumonia not resolved by the end of the month. 12/17 given 14 days of Zosyn and improvement today, will d/c. (2) COPD (chronic obstructive pulmonary disease) Status: Chronic Assessment & Plan: With wheezing, possible acute exacerbation, is on solumedrol 80 mg q6 hours, has been on IV solumedrol since admit, anticipate tapering, will consult Pulmonology due to persistent respiratory issues. 12/15 decrease solumedrol from 80 mg q6 to q12 12/16 will change to oral taper (3) Alcohol dependence Status: Chronic Assessment & Plan: Was discharge to inpatient rehab last stay but almost im mediately readmitted inpatient for pneumonia, plan to go to [facility] again on d/c. (4) Primary hypertension Status: Chronic (5) Persistent atrial fibrillation Status: Chronic Assessment & Plan: Appreciate Cardiology recommendations. Apixaban was held early in admission due to anemia and transfusion. (6) Acute on chronic respiratory failure with hypoxemia Status: Acute (7) Anemia Assessment & Plan: Multifactorial, hemoglobin was normal at beginning of last admit, trended down slowly throughout. Is macrocytic, B12 is high. Iron normal, TIBC low and ferritin high suspicious for anemia of chronic disease developing but with underlying alcohol use and possible blood loss as well. Hemoccult positive, waiting on scopes given hemoglobin stable. s/p 1 unit transfusion on 12/09 (8) Acute kidney injury Status: Acute Assessment & Plan: Unclear etiology, started to trend down but seems to be staying around 2.0 at this point. (9) DVT prophylaxis Status: Acute Assessment & Plan: Not on pharmacologic due to anemia and possible GI bleeding. VICKI VICENTE MD Dec 17, 2021 14:25
[2021-12-17] MEDS: predniSONE 10 MG TAB PO SCH (15:34)
[2021-12-17] MEDS: MELATONIN 3 MG TABLET PO PRN (20:24)
[2021-12-17] MEDS: QUEtiapine 200 MG (SEROquel) TAB IMMEDIATE RELEASE PO SCH (20:25)
[2021-12-17] MEDS: PRAMIPEXOLE 0.5 MG TAB (MIRAPEX) PO SCH (20:25)
[2021-12-18 03:27] VITALS: BP 170/74
[2021-12-18 05:56] LABS: HEMATOCRIT 27 % (35-52); HEMOGLOBIN 8.4 g/dL (11.5-16.0); MEAN CORPUSCULAR HEMOGLOBIN 31 pg (25-34); MEAN CORPUSCULAR HGB CONC 31 g/dL (32-36); MEAN CORPUSCULAR VOLUME 101 fL (80-99); MEAN PLATELET VOLUME 10.6 fL (9.0-12.2); PLATELET COUNT 156 10^3/uL (130-400); WHITE BLOOD COUNT 11.9 10^3/uL (4.3-11.0)
[2021-12-18] MEDS: KCL 20 MEQ TAB (K-DUR) PO SCH (06:10)
[2021-12-18] MEDS: MULTIVIT W/MINERALS TAB (THERAGRAN M) PO SCH (06:10)
[2021-12-18] MEDS: SUCRALFATE 1 GM (CARAFATE) TAB PO SCH ×4 (06:10→20:41)
[2021-12-18] MEDS: predniSONE 10 MG TAB PO SCH (06:10)
[2021-12-18 06:13] LABS: POTASSIUM 3.2 MMOL/L (3.6-5.0)
[2021-12-18 06:18] LABS: CREATININE SERUM 1.7 MG/DL (0.60-1.30)
[2021-12-18 06:21] LABS: MAGNESIUM 1.7 MG/DL (1.6-2.4)
[2021-12-18] MEDS: RT--FLUTICASONE/SALMETEROL 113-14 (AIRDUO RespiCLICK) IH SCH ×2 (07:32→19:35)
[2021-12-18] MEDS: RT-ALBUTEROL SULF 2.5 MG/3 ML PRE-MIX VIAL INH SCH ×2 (07:32→19:36)
[2021-12-18 07:43] VITALS: BP 170/84
[2021-12-18] MEDS: DIAZEPAM 2 MG (VALIUM) TAB PO PRN ×2 (08:27→19:35)
[2021-12-18] MEDS: GABAPENTIN 100 MG (NEURONTIN) CAP PO SCH ×3 (08:27→20:41)
[2021-12-18] MEDS: FLECAINIDE 100 MG (TAMBOCOR) TAB PO SCH ×2 (08:27→20:40)
[2021-12-18] MEDS: DULoxetine 30 MG (CYMBALTA) CAP PO SCH (08:27)
[2021-12-18] MEDS: FLUoxetine HCL 20 MG (PROzac) CAP PO SCH (08:27)
[2021-12-18] MEDS: LACTOBACILLUS ACIDOPHILUS (PROBIOTIC) CAPSULE PO SCH ×3 (08:27→16:22)
[2021-12-18] MEDS: AMITRIPTYLINE 10 MG (ELAVIL) TAB PO SCH (08:28)
[2021-12-18] MEDS: FERROUS SULF 325 MG (IRON) TAB PO SCH (08:28)
[2021-12-18] MEDS: PANTOPRAZOLE 40 MG (PROTONIX) TAB PO SCH ×2 (08:28→20:41)
[2021-12-18] MEDS: meTOproloL SUCCINATE 50 MG (TOPROL XL) TAB PO SCH (08:28)
[2021-12-18] MEDS: FOLIC ACID 1 MG TAB PO SCH (08:28)
[2021-12-18] MEDS: SENNOSIDES 8.6 MG (SENOKOT) TAB PO SCH ×2 (08:28→20:45)
[2021-12-18] MEDS: SENNA W/DOCUSATE (SENOKOT S) TABLET PO SCH ×2 (08:28→20:45)
[2021-12-18] MEDS: BENZONATATE 100 MG (TESSALON) CAPSULE PO SCH ×3 (08:29→20:40)
[2021-12-18] MEDS: MONTELUKAST 10 MG (SINGULAIR) TAB PO SCH (08:29)
[2021-12-18] MEDS: ASCORBIC ACID (VIT C) 500 MG TABLET PO SCH (08:29)
[2021-12-18] MEDS: DOCUSATE SODIUM 100 MG (COLACE) CAP PO SCH ×2 (08:30→20:44)
[2021-12-18] MEDS: LACTULOSE SYRUP 10GM/15ML (ENULOSE) 30ML UDC PO SCH ×2 (08:30→20:44)
--- NOTE | 2021-12-18 11:20 | Progress Note - Hospitalist ---
Subjective HPI/CC On Admission Date Seen by Provider: Dec 18, 2021 Time Seen by Provider: 09:00 Chief complaint: Pneumonia with acute respiratory failure History of present illness: This is a 61-year-old female who was transferred from [facility] due to shortness of breath 1 day after discharge from a complicated ICU course which included A. fib with RVR status post cardioversion and pneumonia with bacteremia and alcohol withdrawal. She had been discharged to a [facility] for alcohol rehab when she began having shortness of breath so was brought to [facility] found to have significant pneumonia and due to cardiac risk factors she was transferred to higher level care. Currently she is feeling much better. Subjective/Events-last exam Patient reports feeling little less short of breath today still more fatigued than baseline. No sputum production. No chest pain decreasing cough. No night sweats chills or fever reported. Objective Exam Vital Signs Vital Signs Date Time Temp Pulse Resp B/P (MAP) Pulse Ox O2 Delivery O2 Flow Rate FiO2 12/18/21 07:43 36.2 73 20 170/84 (112) 99 Nasal Cannula 1.00 12/14/21 15:05 28 Capillary Refill : General Appearance: No Apparent Distress, Obese Respiratory: No Accessory Muscle Use, No Respiratory Distress, Other (Coarse breath sounds bilaterally with some diminishment of breath sounds in the right base compared to the left no wheezing noted with regular respiration.) Cardiovascular: Regular Rate, Rhythm, No Edema, No Gallop, No JVD, No Murmur, Normal Peripheral Pulses Extremity: No Pedal Edema Results/Procedures Lab Laboratory Tests 12/18/21 05:25 Patient resulted labs reviewed. Assessment/Plan Assessment and Plan Assess & Plan/Chief Complaint (1) Pneumonia Status: Acute Assessment & Plan: On Zosyn day 14, continues to have some difficulty breathing, repeat CXR yesterday with small improvement. Pulm consulted due to persistent hypoxia and suspect delayed healing of pneumonia and sleep apnea as well as CHF component. Consider bronch if not pneumonia not resolved by the end of the month. 7/8 given 14 days of Zosyn and improvement today, will d/c. 12/18 slow improvement in pneumonia. Considering history of small-volume hemoptysis recurrent pneumonia and likely right-sided atelectasis will likely need pulmonary follow-up as outpatient with consideration for bronchoscopy to evaluate for a postobstructive process. (2) COPD (chronic obstructive pulmonary disease) Status: Chronic Assessment & Plan: With wheezing, possible acute exacerbation, is on solumedrol 80 mg q6 hours, has been on IV solumedrol since admit, anticipate tapering, will consult Pulmonology due to persistent respiratory issues. 12/15 decrease solumedrol from 80 mg q6 to q12 12/16 will change to oral taper (3) Alcohol dependence Status: Chronic Assessment & Plan: Was discharge to inpatient rehab last stay but almost immediately readmitted inpatient for pneumonia, plan to go to [facility] again on d/c. (4) Primary hypertension Status: Chronic (5) Persistent atrial fibrillation Status: Chronic Assessment & Plan: Appreciate Cardiology recommendations. Apixaban was held early in admission due to anemia and transfusion. (6) Acute on chronic respiratory failure with hypoxemia Status: Acute (7) Anemia Assessment & Plan: Multifactorial, hemoglobin was normal at beginning of last admit, trended down slowly throughout. Is macrocytic, B12 is high. Iron normal, TIBC low and ferritin high suspicious for anemia of chronic disease developing but with underlying alcohol use and possible blood loss as well. Hemoccult positive, waiting on scopes given hemoglobin stable. s/p 1 unit transfusion on 12/09 (8) Acute kidney injury Status: Acute Assessment & Plan: Unclear etiology, started to trend down but seems to be staying around 2.0 at this point. (9) DVT prophylaxis Status: Acute Assessment & Plan: Not on pharmacologic due to anemia and possible GI bleeding Critical Care Critically Ill Patient ADITYA BARRY MD Dec 18, 2021 11:20
[2021-12-18 11:24] VITALS: BP 172/81
[2021-12-18 16:00] VITALS: BP 182/88
[2021-12-18 19:42] VITALS: BP 187/84
[2021-12-18] MEDS: QUEtiapine 200 MG (SEROquel) TAB IMMEDIATE RELEASE PO SCH (20:41)
[2021-12-18] MEDS: PRAMIPEXOLE 0.5 MG TAB (MIRAPEX) PO SCH (20:41)
[2021-12-18] MEDS: ACETAMINOPHEN 325 MG TABLET PO PRN (20:43)
[2021-12-19] VITALS (7 sets, daily range): BP systolic 140–198; BP diastolic 77–91
[2021-12-19] MEDS: RT--FLUTICASONE/SALMETEROL 113-14 (AIRDUO RespiCLICK) IH SCH ×2 (06:36→20:51)
[2021-12-19] MEDS: RT-ALBUTEROL SULF 2.5 MG/3 ML PRE-MIX VIAL INH SCH ×2 (06:36→20:51)
[2021-12-19] MEDS: SUCRALFATE 1 GM (CARAFATE) TAB PO SCH (06:37)
[2021-12-19] MEDS: KCL 20 MEQ TAB (K-DUR) PO SCH (06:37)
[2021-12-19] MEDS: MULTIVIT W/MINERALS TAB (THERAGRAN M) PO SCH (06:37)
[2021-12-19] MEDS: predniSONE 10 MG TAB PO SCH (06:40)
[2021-12-19] MEDS: FOLIC ACID 1 MG TAB PO SCH (09:08)
[2021-12-19] MEDS: GABAPENTIN 100 MG (NEURONTIN) CAP PO SCH ×3 (09:08→20:27)
[2021-12-19] MEDS: FLUoxetine HCL 20 MG (PROzac) CAP PO SCH (09:09)
[2021-12-19] MEDS: ASCORBIC ACID (VIT C) 500 MG TABLET PO SCH (09:09)
[2021-12-19] MEDS: PANTOPRAZOLE 40 MG (PROTONIX) TAB PO SCH ×2 (09:09→20:27)
[2021-12-19] MEDS: BENZONATATE 100 MG (TESSALON) CAPSULE PO SCH (09:09)
[2021-12-19] MEDS: meTOproloL SUCCINATE 50 MG (TOPROL XL) TAB PO SCH (09:09)
[2021-12-19] MEDS: FERROUS SULF 325 MG (IRON) TAB PO SCH (09:09)
[2021-12-19] MEDS: MONTELUKAST 10 MG (SINGULAIR) TAB PO SCH (09:09)
[2021-12-19] MEDS: AMITRIPTYLINE 10 MG (ELAVIL) TAB PO SCH (09:09)
[2021-12-19] MEDS: DIAZEPAM 2 MG (VALIUM) TAB PO PRN ×2 (09:09→20:27)
[2021-12-19] MEDS: LACTOBACILLUS ACIDOPHILUS (PROBIOTIC) CAPSULE PO SCH ×3 (09:09→17:27)
[2021-12-19] MEDS: DULoxetine 30 MG (CYMBALTA) CAP PO SCH (09:09)
[2021-12-19] MEDS: FLECAINIDE 100 MG (TAMBOCOR) TAB PO SCH ×2 (09:09→20:27)
[2021-12-19] MEDS: LACTULOSE SYRUP 10GM/15ML (ENULOSE) 30ML UDC PO SCH ×2 (09:10→20:27)
[2021-12-19] MEDS: SENNA W/DOCUSATE (SENOKOT S) TABLET PO SCH ×2 (09:42→20:27)
[2021-12-19] MEDS: DOCUSATE SODIUM 100 MG (COLACE) CAP PO SCH (09:42)
[2021-12-19] MEDS: SENNOSIDES 8.6 MG (SENOKOT) TAB PO SCH ×2 (09:42→20:28)
--- NOTE | 2021-12-19 10:25 | Progress Note - Hospitalist ---
Subjective HPI/CC On Admission Date Seen by Provider: Dec 19, 2021 Time Seen by Provider: 08:30 Chief complaint: Pneumonia with acute respiratory failure History of present illness: This is a 61-year-old female who was transferred from [facility] due to shortness of breath 1 day after discharge from a complicated ICU course which included A. fib with RVR status post cardioversion and pneumonia with bacteremia and alcohol withdrawal. She had been discharged to a [facility] for alcohol rehab when she began having shortness of breath so was brought to [facility] found to have significant pneumonia and due to cardiac risk factors she was transferred to higher level care. Currently she is feeling much better. Subjective/Events-last exam Patient feeling better less shortness of breath down to 1 L of oxygen decreased cough minimal sputum production. Objective Exam Vital Signs Vital Signs Date Time Temp Pulse Resp B/P (MAP) Pulse Ox O2 Delivery O2 Flow Rate FiO2 12/19/21 08:09 36.5 92 18 165/77 (106) 98 Nasal Cannula 2.00 12/14/21 15:05 28 Capillary Refill : General Appearance: No Apparent Distress, Obese Respiratory: No Accessory Muscle Use, No Respiratory Distress, Other (Improved air movement persistent rhonchi few rales in the right base coarse breath sounds on the left minimal expiratory wheezing on right) Cardiovascular: Regular Rate, Rhythm, No Edema, No Gallop, No JVD, No Murmur, Normal Peripheral Pulses Results/Procedures Lab Patient resulted labs reviewed. Assessment/Plan Assessment and Plan Assess & Plan/Chief Complaint (1) Pneumonia Status: Acute Assessment & Plan: On Zosyn day 14, continues to have some difficulty breathing, repeat CXR yesterday with small improvement. Pulm consulted due to persistent hypoxia and suspect delayed healing of pneumonia and sleep apnea as well as CHF component. Consider bronch if not pneumonia not resolved by the end of the month. 12/17 given 14 days of Zosyn and improvement today, will d/c. 12/18 slow improvement in pneumonia. Considering history of small-volume hemoptysis recurrent pneumonia and likely right-sided atelectasis will likely need pulmonary follow-up as outpatient with consideration for bronchoscopy to evaluate for a postobstructive process. 12/19 continued improvements patient finished 14 days of IV antibiotics off antibiotics for the last 48 hourshours. Again discussed follow-up with senior programmer as an outpatient likely discharge in the morning. Plan is to go to the [facility] when they are off of COVID diversion due to an active case there. Iron studies did not suggest iron deficiency patient taking over 20 pills in the morning have pared back significantly today. (2) COPD (chronic obstructive pulmonary disease) Status: Chronic Assessment & Plan: With wheezing, possible acute exacerbation, is on solumedrol 80 mg q6 hours, has been on IV solumedrol since admit, anticipate tapering, will consult Pulmonology due to persistent respiratory issues. 12/15 decrease solumedrol from 80 mg q6 to q12 12/16 will change to oral taper (3) Alcohol dependence Status: Chronic Assessment & Plan: Was discharge to inpatient rehab last stay but almost immediately readmitted inpatient for pneumonia, plan to go to [facility] again on d/c. (4) Primary hypertension Status: Chronic (5) Persistent atrial fibrillation Status: Chronic Assessment & Plan: Appreciate Cardiology recommendations. Apixaban was held early in admission due to anemia and transfusion. (6) Acute on chronic respiratory failure with hypoxemia Status: Acute (7) Anemia Assessment & Plan: Multifactorial, hemoglobin was normal at beginning of last admit, trended down slowly throughout. Is macrocytic, B12 is high. Iron normal, TIBC low and ferritin high suspicious for anemia of chronic disease developing b ut with underlying alcohol use and possible blood loss as well. Hemoccult positive, waiting on scopes given hemoglobin stable. s/p 1 unit transfusion on 12/09 (8) Acute kidney injury Status: Acute Assessment & Plan: Unclear etiology, started to trend down but seems to be staying around 2.0 at this point. (9) DVT prophylaxis Status: Acute Assessment & Plan: Not on pharmacologic due to anemia and possible GI bleeding Critical Care Critically Ill Patient ADITYA BARRY MD Dec 19, 2021 10:25
[2021-12-19] MEDS ORDERED: LOSARTAN 50 MG (COZAAR) TAB PO ONE ×2 (12:30→16:30)
[2021-12-19] MEDS: PRAMIPEXOLE 0.5 MG TAB (MIRAPEX) PO SCH (20:27)
[2021-12-19] MEDS: QUEtiapine 200 MG (SEROquel) TAB IMMEDIATE RELEASE PO SCH (20:27)
[2021-12-20 03:36] VITALS: BP 182/97
[2021-12-20] MEDS: predniSONE 10 MG TAB PO SCH (06:23)
[2021-12-20] MEDS ORDERED: KCL 10 MEQ TAB (MICRO K) PO SCH (07:00)
[2021-12-20 07:01] LABS: BASOPHILS % (AUTO) 0 % (0-10); EOSINOPHILS # (AUTO) 0.4 10^3/uL (0.0-0.3); EOSINOPHILS % (AUTO) 2 % (0-10); HEMATOCRIT 30 % (35-52); LYMPHOCYTES # (AUTO) 2.4 10^3/uL (1.0-4.0); LYMPHOCYTES % (AUTO) 15 % (12-44); MEAN CORPUSCULAR HEMOGLOBIN 31 pg (25-34); MEAN CORPUSCULAR HGB CONC 30 g/dL (32-36); MEAN CORPUSCULAR VOLUME 103 fL (80-99); MEAN PLATELET VOLUME 10.6 fL (9.0-12.2); MONOCYTES # (AUTO) 0.7 10^3/uL (0.0-1.0); MONOCYTES % (AUTO) 4 % (0-12); NEUTROPHILS % (AUTO) 77 % (42-75); PLATELET COUNT 155 10^3/uL (130-400); WHITE BLOOD COUNT 15.5 10^3/uL (4.3-11.0)
[2021-12-20 07:11] LABS: ALBUMIN 3.5 GM/DL (3.2-4.5); POTASSIUM 3.2 MMOL/L (3.6-5.0)
[2021-12-20 07:13] LABS: CALCIUM 8.8 MG/DL (8.5-10.1)
[2021-12-20 07:15] LABS: BILIRUBIN,TOTAL 0.8 MG/DL (0.1-1.0)
[2021-12-20 07:17] LABS: CREATININE SERUM 1.42 MG/DL (0.60-1.30)
[2021-12-20 07:21] VITALS: BP 147/85
[2021-12-20 07:26] LABS: ANISOCYTOSIS SLIGHT; EOSINOPHILS % (MANUAL) 1 %; LYMPHOCYTES % (MANUAL) 11 %; MONOCYTES % (MANUAL) 2 %; NEUTROPHILS % (MANUAL) 86 %
[2021-12-20] MEDS: RT-ALBUTEROL SULF 2.5 MG/3 ML PRE-MIX VIAL INH SCH (07:34)
[2021-12-20] MEDS: RT--FLUTICASONE/SALMETEROL 113-14 (AIRDUO RespiCLICK) IH SCH (07:38)
[2021-12-20] MEDS: LACTOBACILLUS ACIDOPHILUS (PROBIOTIC) CAPSULE PO SCH (07:44)
[2021-12-20] MEDS: AMITRIPTYLINE 10 MG (ELAVIL) TAB PO SCH (07:44)
[2021-12-20] MEDS: DULoxetine 30 MG (CYMBALTA) CAP PO SCH (07:44)
[2021-12-20] MEDS: GABAPENTIN 100 MG (NEURONTIN) CAP PO SCH (07:44)
[2021-12-20] MEDS: LACTULOSE SYRUP 10GM/15ML (ENULOSE) 30ML UDC PO SCH (07:45)
[2021-12-20] MEDS: FLUoxetine HCL 20 MG (PROzac) CAP PO SCH (07:45)
[2021-12-20] MEDS: meTOproloL SUCCINATE 50 MG (TOPROL XL) TAB PO SCH (07:45)
[2021-12-20] MEDS: PANTOPRAZOLE 40 MG (PROTONIX) TAB PO SCH (07:45)
[2021-12-20] MEDS: DIAZEPAM 2 MG (VALIUM) TAB PO PRN (07:45)
[2021-12-20] MEDS: FLECAINIDE 100 MG (TAMBOCOR) TAB PO SCH (07:45)
[2021-12-20] MEDS: SENNA W/DOCUSATE (SENOKOT S) TABLET PO SCH (07:47)
[2021-12-20] MEDS: SENNOSIDES 8.6 MG (SENOKOT) TAB PO SCH (07:47)
[2021-12-20] MEDS ORDERED: LOSARTAN 50 MG (COZAAR) TAB PO SCH ×2 (09:00)
[2021-12-20 10:15] VITALS: BP 108/72
[2021-12-20] MEDS ORDERED: DULO30CA49 PO (11:10)
[2021-12-20] MEDS ORDERED: OXC5T PO (11:10)
[2021-12-20] MEDS ORDERED: FLUO40CA PO (11:10)
[2021-12-20] MEDS ORDERED: DIAZ2TAB2 PO (11:10)
[2021-12-20] MEDS ORDERED: GABA-486 PO (11:10)
[2021-12-20] MEDS ORDERED: LACT1CAP7 PO (11:10)
[2021-12-20] MEDS ORDERED: PANT40TA52 PO (11:10)
[2021-12-20] MEDS ORDERED: PRAM0.5T9 PO (11:10)
[2021-12-20] MEDS ORDERED: FLUT1AER4 IH (11:10)
[2021-12-20] MEDS ORDERED: POTA-160 PO (11:10)
[2021-12-20] MEDS ORDERED: QUET400T13 PO (11:10)
[2021-12-20] MEDS ORDERED: HYDR25TA4 PO (11:10)
[2021-12-20] MEDS ORDERED: AMT10T PO (11:10)
--- NOTE | 2021-12-20 11:12 | Discharge Summary ---
Discharge Summary Hospital Course Was the Problem List Reviewed?: Yes Problems/Dx: (1) Persistent atrial fibrillation Status: Chronic (2) Pulmonary vascular congestion (3) Lower extremity edema (4) Primary hypertension Status: Chronic (5) Aortic stenosis Status: Chronic (6) Acute kidney injury Status: Acute (7) Anemia (8) Acute on chronic respiratory failure with hypoxemia Status: Acute (9) Alcohol dependence Status: Chronic Hospital Course Date of Admission: Dec 04, 2021 at 10:12 Admission Diagnosis : Family Physician/Provider: Lida Storm MD Date of Discharge: 12/20/21 Discharge Diagnosis: PNA, AECOPD, ETOHism Hospital Course: Pt had a lengthy hospital course for 17 days, one day after she was discharged from her critical illness for a two week hospital stay. She suffered pneumonia w ith exacerbation of COPD, alcoholism, and afib with RVR. She was maintained on anticoagulation. Home care was needed at discharge. She did have subtle wheezing at discharge but that will ultimately resolve as an outpatient. Alcohol rehab outpatient will be completed. Home health will be ordered. We will have oxygen evaluation prior to discharge. Labs and Pending Lab Test: Laboratory Tests 12/20/21 06:50: White Blood Count 15.5H, Red Blood Count 2.87L, Hemoglobin 9.0L, Hematocrit 30L, Mean Corpuscular Volume 103H, Mean Corpuscular Hemoglobin 31, Mean Corpuscular Hemoglobin Concent 30L, Red Cell Distribution Width 17.5H, Platelet Count 155, Mean Platelet Volume 10.6, Immature Granulocyte % (Auto) 1, Neutrophils (%) (Auto) 77H, Lymphocytes (%) (Auto) 15, Monocytes (%) (Auto) 4, Eosinophils (%) (Auto) 2, Basophils (%) (Auto) 0, Neutrophils # (Auto) 12.0H, Lymphocytes # (Auto) 2.4, Monocytes # (Auto) 0.7, Eosinophils # (Auto) 0.4H, Basophils # (Auto) 0.0, Immature Granulocyte # (Auto) 0.1, Neutrophils % (Manual) 86, Lymphocytes % (Manual) 11, Monocytes % (Manual) 2, Eosinophils % (Manual) 1, Anisocytosis SLIGHT, Sodium Level 142, Potassium Level 3.2L, Chloride Level 99, Carbon Dioxide Level 29, Anion Gap 14, Blood Urea Nitrogen 20H, Creatinine 1.42H , Estimat Glomerular Filtration Rate 42, BUN/Creatinine Ratio 14, Glucose Level 83, Calcium Level 8.8, Corrected Calcium 9.2, Total Bilirubin 0.8, Aspartate Amino Transf (AST/SGOT) 40H, Alanine Aminotransferase (ALT/SGPT) 91H, Alkaline Phosphatase 52, Total Protein 6.0L, Albumin 3.5 Home Meds Active Acidophilus-Pectin Capsule (Lactobacillus Acidophilus/Pect) 75 Million Cell-100 Mg Capsule 2 Each PO TIDWM Pantoprazole Sodium 40 Mg Tablet.dr 40 Mg PO BID Fluticasone-Salmeterol 113-14 (Fluticasone/Salmeterol) 113 Mcg-14 Mcg/Actuation Aer.pow.ba 0 Each IH RTBID twice daily Hydrochlorothiazide 25 Mg Tablet 25 Mg PO DAILY Klor-Con 10 (Potassium Chloride) 10 Meq Tablet.er 10 Meq PO DAILY@0700 Diazepam 2 Mg Tablet 2 Mg PO BID PRN Gabapentin 100 Mg Capsule 100 Mg PO TID Oxyir Tablet (Oxycodone HCl) 5 Mg Tab 5 Mg PO Q6HR PRN Amitriptyline HCl 10 Mg Tablet 10 Mg PO DAILY Fluoxetine HCl 40 Mg Capsule 40 Mg PO DAILY Pramipexole Dihydrochloride (Pramipexole Di-HCl) 0.5 Mg Tablet 0.5 Mg PO HS Quetiapine Fumarate 400 Mg Tablet 400 Mg PO HS Duloxetine HCl 30 Mg Capsule.dr 30 Mg PO DAILY Metoprolol Succinate 50 Mg Tab.er.24h 100 Mg PO DAILY Flecainide Acetate 100 Mg Tablet 100 Mg PO BID Eliquis (Apixaban) 5 Mg Tablet 5 Mg PO BID Reported Iron (Ferrous Sulfate) 325 Mg (65 Mg Iron) Tablet 325 Mg PO DAILY Vitamin C 250 mg Tablet Chew (Ascorbic Acid/Ascorbate Sodium) 250 Mg Tab.chew 250 Mg PO DAILY Multivitamin Gummies (Multivit-Minerals/Folic Acid) 200 Mcg Tab.chew 200 Mcg PO DAILY Eliquis (Apixaban) 5 Mg Tablet 5 Mg PO DAILY Metoprolol Succinate 50 Mg Tab.er.24h 50 Mg PO DAILY Imodium A-D (Loperamide HCl) 1 Mg/7.5 Ml Liquid 1 Mg PO Q4H PRN Assessment/Pt Instructions PCP 1 week Discharge Planning: <30 minutes discharge planning Discharge Instructions Discharge Diet: No Restrictions Activity as Tolerated: Yes Discharge Physical Examination Vital Signs Vital Signs Date Time Temp Pulse Resp B/P (MAP) Pulse Ox O2 Delivery O2 Flow Rate FiO2 12/20/21 10:15 108/72 (84) 12/20/21 07:36 96 Nasal Cannula 2.00 12/20/21 07:21 36.7 79 18 12/14/21 15:05 28 General Appearance: No Apparent Distress, WD/WN, Chronically ill Respiratory: No Accessory Muscle Use, No Respiratory Distress, Wheezing Cardiovascular: Regular Rate, Rhythm Neurologic/Psychiatric: Alert, Oriented x3, Depressed Affect Allergies: Coded Allergies: cephalexin (Verified Allergy, Severe, Has received ceftriaxone in the past w/o issue, 11/29/21) Discharge Summary Date of Admission Dec 04, 2021 at 10:12 Date of Discharge Discharge Date: Dec 20, 2021 Admission Diagnosis Assessment: Pneumonia Hypoxia History of A. fib with RVR status post cardioversion last week Alcohol withdrawal hospital course last week Recent E. coli bacteremia Plan: IV antibiotics Supportive care Discharge Diagnosis Assessment: Pneumonia Hypoxia History of A. fib with RVR status post cardioversion last week Alcohol withdrawal hospital course last week Recent E. coli bacteremia Anemia requiring transfusion 12/09/21 Iron deficiency started on iron infusions Exacerbation of COPD Plan: IV antibiotics Supportive care Nebs O2 Singulair Steroids Dr Simth consult Ambulate Transfuse as needed Change steroids back to IV (1) Persistent atrial fibrillation Status: Chronic Assessment & Plan: No signs of recurrence on flecainide. I did lower the dose of flecainide and she has remained in sinus rhythm. She is on beta-tahir for rate control in the event she has recurrent atrial fibrillation and apixaban for stroke prophylaxis. Since she had a blood transfusion, her hemoglobin level now appears to be coming up. She has been taking iron tablets at home. At this point, from a cardiac standpoint, we can probably hold off on endoscopies until after discharge. I have ordered another electrocardiogram for this morning. Dr. Clements will be covering for the weekend and please call him if you have any questions. (2) Pulmonary vascular congestion Assessment & Plan: Her chest x-ray from 12/14 showed some evidence of pulmonary vascular congestion. I suspect this is just related to volume overload due to blood transfusion, intravenous steroids, intravenous iron as well as intravenous antibiotics and intravenous fluids she has received. I do not believe this is heart failure. I will give her another dose of intravenous furosemide today. Again, this is not heart failure but rather, fluid retention related to intravenous steroids. (3) Lower extremity edema Assessment & Plan: I suspect this is due to immobility while she has been in the hospital as well as intravenous fluids and intravenous steroids. I do not believe she has heart failure but rather, fluid retention related to the steroids. I will give her another dose of intravenous furosemide today. (4) Primary hypertension Status: Chronic Assessment & Plan: Blood pressures have improved on the higher dose of metoprolol and as the intravenous steroid has been decreased. (5) Aortic stenosis Status: Chronic Assessment & Plan: This has been in a mild range and should not be causing symptoms but will need to be followed. (6) Acute kidney injury Status: Acute Assessment & Plan: Her creatinine went up while she was receiving intravenous antibiotics for the pneumonia but has now stabilized although is higher than she was in the past. Exact etiology unclear. Apparently pharmacy has determined that the combination of Zosyn and vancomycin may have done this and the vancomycin has now been discontinued. We will continue to monitor her creatinine level closely. (7) Anemia Assessment & Plan: Etiology unclear. Her hemoglobin was normal mid November. some of the anemia could be related to her alcohol abuse. As above, she has now received 1 blood transfusion. General surgery is following the patient in regards to deciding about inpatient versus outpatient endoscopies. I will give her 1 iron infusion. (8) Acute on chronic respiratory failure with hypoxemia Status: Acute Assessment & Plan: Most likely due to pneumonia for which she is being treated. (9) Alcohol dependence Status: Chronic Assessment & Plan: She is [facility] discharge. BENY WHEELER DO Dec 20, 2021 11:12
--- NOTE | 2021-12-20 11:12 | D/C HH Face to Face Order ---
D/C HH Face to Face Orders Reconcile Patient Problems Problems Reviewed?: Yes Instructions for Patient HH Patient Instructions/FollowUp: PCP 1 week Physician to follow Patient: PCP Discharge Diet for Home: No Restrictions Patient Problems: COPD Alcoholism Patient Data-Allergies,Ht & Wt Patient Allergies: Coded Allergies: cephalexin (Verified Allergy, Severe, Has received ceftriaxone in the past w/o issue, 11/29/21) Home Health Need/Face to Face Date of Face to Face: Dec 20, 2021 Clinical Findings: Generalized weakness and fatigue, Instability, Muscle weakness, Shortness of breath, Unsteady gait I have seen Pt taka-ur-olan: Yes Discharged To: Home Diagnosis/Conditions: COPD Patient is Homebound due to: Inocencia fall risk due to instabilty, Muscle weakness, Shortness of breath/distress Homebound Status Due to the above stated illness, injury or surgical procedure (medical condition or diagnosis) and associated clinical findings, the patient is homebound because of his/her inability to leave home except with aid of a supportive device and/or person AND leaving the home requires a considerable and taxing effort or is medically contraindicated. Pt req the following assistanc: Walker Certify Stmt I certify that this patient is under my care and that I, a nurse practitioner or a physician; a clinical trials assistant working with me, had a face to face encounter that - meets the physician face to face encounter requirements with this patient as dated. BENY WHEELER DO Dec 20, 2021 11:12
[2021-12-20 12:02] VITALS: BP 181/86
[2021-12-20 14:02] VITALS: BP 181/86
== END 2021-12-20 13:35 | disposition home health service (06) | DRG 193 ==
LOC: CSD 10:12 → 4TH 16:15
PROVIDERS: ADMIT Internal Medicine; ATTEND Internal Medicine
DX: J18.9 Pneumonia, unspecified organism (principal); J96.21 Acute and chronic respiratory failure with hypoxia; I48.19 Other persistent atrial fibrillation; Z68.41 Body mass index [BMI] 40.0-44.9, adult; J44.0 Chronic obstructive pulmonary disease with (acute) lower respiratory infection; J44.1 Chronic obstructive pulmonary disease with (acute) exacerbation; N17.9 Acute kidney failure, unspecified; I42.0 Dilated cardiomyopathy; I48.0 Paroxysmal atrial fibrillation; I35.0 Nonrheumatic aortic (valve) stenosis; E66.01 Morbid (severe) obesity due to excess calories; E78.00 Pure hypercholesterolemia, unspecified; I10 Essential (primary) hypertension; F10.20 Alcohol dependence, uncomplicated; K21.9 Gastro-esophageal reflux disease without esophagitis; D50.9 Iron deficiency anemia, unspecified; G47.30 Sleep apnea, unspecified; F31.9 Bipolar disorder, unspecified; D64.9 Anemia, unspecified; H54.7 Unspecified visual loss; Z87.891 Personal history of nicotine dependence; Z88.1 Allergy status to other antibiotic agents; Z79.01 Long term (current) use of anticoagulants; Z82.49 Family history of ischemic heart disease and other diseases of the circulatory system
CPT/HCPCS: 36415; 71045; 71046; 80048; 80053; 80202; 82274; 82607; 82728; 82746; 82805; 82947; 83540; 83550; 83735; 83880; 84145; 85007; 85025; 85027; 86850; 86900; 86901; 86920; 93005; 94640; 94664; 94760; 94761

== ENCOUNTER 2022-03-04 11:11 | Emergency (ER) | payer MEDICAID ==
[~2022-03-04] VITALS: Ht 165.1 cm; Wt 99.2 kg
[~2022-03-04 11:11] MED LIST changes: +AMT10T PO; +ASCO250T55 PO; +DIAZ2TAB2 PO; +FLUO40CA PO; +FLUT1AER4 IH; +GABA-486 PO; +LACT1CAP7 PO; +MULT200T12 PO; +OXC5T PO; +PANT40TA52 PO; +POTA-160 PO; +POTA-177 PO; -POTA10TA37 PO
[2022-03-04] MEDS ORDERED: FLUORESCEIN (FLUOR-I-STRIPS) 1 MG STRP ONE (11:21)
[2022-03-04] MEDS ORDERED: TETRACAINE 0.5% OPHTH SOLN 4 ML BTL (SINGLE DOSE ONLY) ONE (11:21)
[2022-03-04 11:23] VITALS: BP 145/82
--- NOTE | 2022-03-04 11:27 | ED EENT ---
History of Present Illness General Chief Complaint: Eye Problems Stated Complaint: LT EYE FOREIGN OBJECT Source: patient History of Present Illness Date Seen by Provider: Mar 04, 2022 Time Seen by Provider: 11:16 Initial Comments 61-year-old female presenting with complaints of feeling like she has a scratch or something caught in her left eye. She states that she woke up with this sensation. She is unsure what might be in the eye but states she had similar symptoms a few years ago with an ingrown eyelash. She had her economic history teacher at the time have to pull the eyelash out with tweezers. She states she has not established care with an eye doctor here in [facility] since moving here. She denies doing anything to her eye and has not tried to flush it or treat it at home. She has no difficulty with vision. She feels like the irritation is m ore to the outer part of her left eye. She has no redness or drainage. Timing/Duration: abrupt, this morning (when woke up) Location: eye (L) Prearrival Treatment: no prearrival treatment Modifying Factors: Worse With Other (blinking makes eye hurt more) Associated Symptoms: No change in hearing, No cough, No drooling, No ear drainage, No facial pain/swelling, No fever, No malaise, No nasal congesti on/drainage, No poor fluid intake, No poor solids intake, No sinus infection, No sore throat, No tooth pain, No voice change Allergies and Home Medications Allergies Coded Allergies: cephalexin (Verified Allergy, Severe, Has received ceftriaxone in the past w/o issue, 11/29/21) Patient Home Medication List Home Medication List Reviewed: Yes Amitriptyline HCl (Amitriptyline HCl) 10 Mg Tablet, 10 MG PO DAILY Prescribed by: BENY WHEELER on 12/20/21 1110 Apixaban (Eliquis) 5 Mg Tablet, 5 MG PO BID Prescribed by: CONI LEWIS JR, MD on 12/13/21 1111 Ascorbic Acid/Ascorbate Sodium (Vitamin C 250 mg Tablet Chew) 250 Mg Tab.chew, 250 MG PO DAILY, (Reported) Entered as Reported by: INGRID SLADE on 12/06/21 0946 Diazepam (Diazepam) 2 Mg Tablet, 2 MG PO BID PRN for ANXIETY Prescribed by: BENY WHEELER on 12/20/21 1111 Duloxetine HCl (Duloxetine HCl) 30 Mg Capsule.dr, 30 MG PO DAILY Prescribed by: BENY WHEELER on 12/20/21 1110 Ferrous Sulfate (Iron) 325 Mg (65 Mg Iron) Tablet, 325 MG PO DAILY, (Reported) Entered as Reported by: INGRID SLADE on 12/06/21 0947 Flecainide Acetate (Flecainide Acetate) 100 Mg Tablet, 100 MG PO BID Prescribed by: CONI LEWIS JR, MD on 12/13/21 1111 Fluoxetine HCl (Fluoxetine HCl) 40 Mg Capsule, 40 MG PO DAILY Prescribed by: BENY WHEELER on 12/20/21 1110 Fluticasone/Salmeterol (Fluticasone-Salmeterol 113-14) 113 Mcg-14 Mcg/Actuation Aer.pow.ba, 0 EACH IH RTBID Prescribed by: BENY WHEELER on 12/20/21 111 Gabapentin (Gabapentin) 100 Mg Capsule, 100 MG PO TID Prescribed by: BENY WHEELER on 12/20/21 111 Hydrochlorothiazide (Hydrochlorothiazide) 25 Mg Tablet, 25 MG PO DAILY Prescribed by: BENY WHEELER on 12/20/21 111 Lactobacillus Acidophilus/Pect (Acidophilus-Pectin Capsule) 75 Million Cell-100 Mg Capsule, 2 EACH PO TIDWM Prescribed by: BENY WHEELER on 12/20/21 111 Loperamide HCl (Imodium A-D) 1 Mg/7.5 Ml Liquid, 1 MG PO Q4H PRN for DIARRHEA, (Reported) Entered as Reported by: INGRID SLADE on 06/28/21 0834 Metoprolol Succinate (Metoprolol Succinate) 50 Mg Tab.er.24h, 100 MG PO DAILY Prescribed by: CONI LEWIS JR, MD on 12/13/21 1113 Multivit-Minerals/Folic Acid (Multivitamin Gummies) 200 Mcg Tab.chew, 200 MCG PO DAILY, (Reported) Entered as Reported by: INGRID SLADE on 12/06/21 0946 Oxycodone Hcl (Oxyir Tablet) 5 Mg Tab, 5 MG PO Q6HR PRN for PAIN-SEE DOSE INSTRUCTIONS Prescribed by: BENY WHEELER on 12/20/21 1111 Pantoprazole Sodium (Pantoprazole Sodium) 40 Mg Tablet.dr, 40 MG PO BID Prescribed by: BENY WHEELER on 12/20/21 1110 Polymyxin B Sulf/Trimethoprim (Polytrim Eye Drops) 10,000 Unit-1 Mg/Ml Drops, 1 DROP OS QID Prescribed by: COLTEN FRANKLIN on 03/04/22 1155 Potassium Chloride (Klor-Con 10) 10 Meq Tablet.er, 10 MEQ PO DAILY@0700 Prescribed by: BENY WHEELER on 12/20/21 111 Pramipexole Di-HCl (Pramipexole Dihydrochloride) 0.5 Mg Tablet, 0.5 MG PO HS Prescribed by: BENY WHEELER on 12/20/21 111 Quetiapine Fumarate (Quetiapine Fumarate) 400 Mg Tablet, 400 MG PO HS Prescribed by: BENY WHEELER on 12/20/21 111 Review of Systems Review of Systems Constitutional: No chills, No fever Eyes: See HPI; Denies Blurred Vision, Denies Drainage; Foreign Body Sensation; Denies Photophobia, Denies Vision Changes Ears: No Symptoms Reported Nose: no symptoms reported Mouth: no symptoms reported Throat: no symptoms reported Respiratory: no symptoms reported Cardiovascular: no symptoms reported Gastrointestinal: no symptoms reported Musculoskeletal: no symptoms reported Skin: no symptoms reported Neurological: No Symptoms Reported Past Iozrakl-Xwnrnh-Lmkipc Hx Immunizations Up To Date First/Initial COVID19 Vaccinat: Second COVID19 Vaccination Minor: February 2021 Past Medical History Surgery/Hospitalization HX: Alcohol Abuse, Bipolar Surgeries: Yes Abdominal, Appendectomy, Gallbladder Respiratory: Yes COPD Cardiac: Yes Atrial Fibrillation, High Cholesterol, Hypertension Neurological: No Genitourinary: No Gastrointestinal: Yes Gastroesophageal Reflux Musculoskeletal: No Endocrine: No Cancer: No Psychosocial: Yes Bipolar Family Medical History No Pertinent Family Hx Physical Exam Vital Signs Vital Signs - First Documented 03/04/22 11:23 Temp 36.7 Pulse 75 Resp 18 B/P (MAP) 145/82 (103) Pulse Ox 98 O2 Delivery Room Air Height, Weight, BMI Height: '" Weight: lbs. oz. kg; 37.78 BMI Method: General Appearance: WD/WN, no apparent distress Eyes: bilateral eye PERRL, bilateral eye EOMI Cardiovascular: normal peripheral pulses Neurologic/Psychiatric: alert, oriented x 3 Skin: normal color, warm/dry Procedures/Interventions Eye : Location: left eye Eye Irrigated w/ Saline (ccs): 15 Anesthesia (gtts): Tetracaine Progress/Procedure Conclusion After obtaining verbal consent from the patient the left time was anesthetized with tetracaine drops. Then using fluorescein dye to highlight the eye and any foreign body or abrasion. With magnification of the eye there was still no obvious FB or abrasion and her concern for ingrown eyelash/hair was not seen either. She had the eye flushed with 15 mL of balanced salt solution in case there was a small object that I did not see. Order 3 days of antibiotic drop in case she has start of infection or irritation to the eyelid causing her symptoms. Progress/Results/Core Measures Results/Orders My Orders Orders - COLTEN FRANKLIN MD Tetracaine 0.5% Ophth Meri Sdv (Tetracai (03/04/22 11:30) Fluorescein Strips ([id number]) (03/04/22 11:30) Balanced Salt Irrigation Soln (Bss Irrig (03/04/22 11:30) Fluorescein Strips ([id number]) (03/04/22 11:21) Tetracaine 0.5% Ophth Meri Sdv (Tetracai (03/04/22 11:21) Medications Given in ED Current Medications Medications Dose Ordered Sig/Gallito Route Start Time Stop Time Status Last Admin Dose Admin Balanced Salt Solution 15 ml ONCE ONCE IR 03/04/22 11:30 03/04/22 11:31 DC 03/04/22 11:37 15 ML Fluorescein Sodium 1 mg ONCE ONCE OU 03/04/22 11:30 03/04/22 11:31 DC 03/04/22 11:37 1 MG Tetracaine HCl 4 ml ONCE ONCE OU 03/04/22 11:30 03/04/22 11:31 DC 03/04/22 11:37 4 ML Vital Signs/I&O 03/04/22 11:23 Temp 36.7 Pulse 75 Resp 18 B/P (MAP) 145/82 (103) Pulse Ox 98 O2 Delivery Room Air Progress Progress Note #1: Progress Note Will examine eye with tetracaine and fluorescein dye to look for abrasion or foreign body. May need to check with an eye doctor if having continued issues and if nothing shows up on exam. Progress Note #2: Progress Note No obvious foreign body or abrasion to the left eye. No ingrown hair for eyelash seen either when examined under magnification and with black light and fluorescein dye. Flushed eye with Balanced salt solution and counseled on follow up and return precautions. Will try 3 day course of antibiotic drops in case there is an infection or irritation to the eyelids that is not clear currently. Given information for Dr. Dey but advised she could see any eye doctor of her choice for follow up if not improved later today or over the weekend Departure Impression Primary Impression: Left eye pain Additional Impression: Sensation of foreign body in eye Disposition: 01 HOME, SELF-CARE Condition: Stable Departure-Patient Inst. Decision time for Depature: 11:51 Referrals: SUNNY FUNEZ MD (PCP) Primary Care Physician Patient Instructions: Foreign Body in Eye ED, How to Use Eye Drops Add. Discharge Instructions: No obvious ingrown eye lash or signs of foreign body or abrasion to eye on exam here in the Emergency Department. Use saline drops or artificial tears to help with eye irritation. Use the antibiotic drops to help with possible eyelid irritation causing the sensation of foreign body. If not improving or continued symptoms the next step will be to see an eye doctor for more formal exam. Dr. Dey is one of the eye doctors here in [place]. His address is [address] [place] [address]. His phone number is . They usually can see you even on the weekend if needed. All discharge instructions reviewed with patient and/or family. Voiced understanding. Scripts Polymyxin B Sulf/Trimethoprim (Polytrim Eye Drops) 10,000 Unit-1 Mg/Ml Drops 1 DROP OS QID for Eye irritation for 3 Days, #10 ML 0 Refills Prov: COLTEN FRANKLIN MD 03/04/22 COLTEN FRANKLIN MD Mar 04, 2022 11:27
[2022-03-04] MEDS ORDERED: FLUORESCEIN (FLUOR-I-STRIPS) 1 MG STRP OU ONE (11:30)
[2022-03-04] MEDS ORDERED: BSS 15 ML IR ONE (11:30)
[2022-03-04] MEDS ORDERED: TETRACAINE 0.5% OPHTH SOLN 4 ML BTL (SINGLE DOSE ONLY) OU ONE (11:30)
[2022-03-04] MEDS ORDERED: POLY10DR OS (11:55)
== END 2022-03-04 11:57 | disposition home or self-care (01) ==
LOC: EDUNIT# 11:11 → ER FS 11:13
DX: H57.12 Ocular pain, left eye (principal); H57.89 Other specified disorders of eye and adnexa
CPT/HCPCS: 99281

== ENCOUNTER 2022-03-12 12:48 | Emergency (ER) | payer MEDICAID ==
[~2022-03-12] VITALS: Ht 165.1 cm; Wt 96.4 kg
[~2022-03-12 12:48] MED LIST changes: +POLY10DR OS
--- NOTE | 2022-03-12 13:31 | ED Cough/URI ---
General Chief Complaint: Cough/Cold/Flu Symptoms Stated Complaint: COUGHING BLOOD Source: patient Exam Limitations: no limitations History of Present Illness Date Seen by Provider: Mar 12, 2022 Time Seen by Provider: 12:55 Initial Comments 61-year-old female with past medical history of A. fib on Eliquis, chronic respiratory failure with hypoxia on roughly 2 L baseline oxygen, hypertension coming in due to progressively more productive cough and now with streaking hemoptysis for the past week. She says has not had a large amount of blood, mostly is just productive mucus. She says she is never felt the same since having COVID last year, and has had pneumonia twice since then. She says she feels similar to those times. Denies any real chest pain, shortness of breath, congestion, fever that she knows of, but she does feel warm. Also denies any rash, vomiting, diarrhea, or any other concerns. Does continue to take all of her medicines including her Eliquis. Has never had a blood clot that she knows of. Denies any swelling in her legs or pain. Denies any recent surgeries. Allergies and Home Medications Allergies Coded Allergies: cephalexin (Verified Allergy, Severe, Has received ceftriaxone in the past w/o issue, 11/29/21) Patient Home Medication List Home Medication List Reviewed: Yes Amitriptyline HCl (Amitriptyline HCl) 10 Mg Tablet, 10 MG PO DAILY Prescribed by: BENY WHEELER on 12/20/21 1110 Apixaban (Eliquis) 5 Mg Tablet, 5 MG PO BID Prescribed by: CONI LEWIS JR, MD on 12/13/21 1111 Ascorbic Acid/Ascorbate Sodium (Vitamin C 250 mg Tablet Chew) 250 Mg Tab.chew, 250 MG PO DAILY, (Reported) Entered as Reported by: INGRID SLADE on 12/06/21 0946 Diazepam (Diazepam) 2 Mg Tablet, 2 MG PO BID PRN for ANXIETY Prescribed by: BENY WHEELER on 12/20/21 1111 Duloxetine HCl (Duloxetine HCl) 30 Mg Capsule.dr, 30 MG PO DAILY Prescribed by: BENY WHEELER on 12/20/21 1110 Ferrous Sulfate (Iron) 325 Mg (65 Mg Iron) Tablet, 325 MG PO DAILY, (Reported) Entered as Reported by: INGRID SLADE on 12/06/21 0947 Flecainide Acetate (Flecainide Acetate) 100 Mg Tablet, 100 MG PO BID Prescribed by: CONI LEWIS JR, MD on 12/13/21 1111 Fluoxetine HCl (Fluoxetine HCl) 40 Mg Capsule, 40 MG PO DAILY Prescribed by: BENY WHEELER on 12/20/21 111 Fluticasone/Salmeterol (Fluticasone-Salmeterol 113-14) 113 Mcg-14 Mcg/Actuation Aer.pow.ba, 0 EACH IH RTBID Prescribed by: BENY WHEELER on 12/20/21 111 Gabapentin (Gabapentin) 100 Mg Capsule, 100 MG PO TID Prescribed by: BENY WHEELER on 12/20/21 111 Hydrochlorothiazide (Hydrochlorothiazide) 25 Mg Tablet, 25 MG PO DAILY Prescribed by: BENY WHEELER on 12/20/21 111 Lactobacillus Acidophilus/Pect (Acidophilus-Pectin Capsule) 75 Million Cell-100 Mg Capsule, 2 EACH PO TIDWM Prescribed by: BENY WHEELER on 12/20/21 111 Levofloxacin (Levofloxacin) 750 Mg Tablet, 750 MG PO DAILY Prescribed by: SARA HAM on 03/12/22 1549 Loperamide HCl (Imodium A-D) 1 Mg/7.5 Ml Liquid, 1 MG PO Q4H PRN for DIARRHEA, (Reported) Entered as Reported by: INGRID SLADE on 06/28/21 0834 Metoprolol Succinate (Metoprolol Succinate) 50 Mg Tab.er.24h, 100 MG PO DAILY Prescribed by: CONI LEWIS JR, MD on 12/13/21 1113 Multivit-Minerals/Folic Acid (Multivitamin Gummies) 200 Mcg Tab.chew, 200 MCG PO DAILY, (Reported) Entered as Reported by: INGRID SLADE on 12/06/21 0946 Oxycodone Hcl (Oxyir Tablet) 5 Mg Tab, 5 MG PO Q6HR PRN for PAIN-SEE DOSE INSTRUCTIONS Prescribed by: BENY WHEELER on 12/20/21 1111 Pantoprazole Sodium (Pantoprazole Sodium) 40 Mg Tablet.dr, 40 MG PO BID Prescribed by: BENY WHEELER on 12/20/21 111 Polymyxin B Sulf/Trimethoprim (Polytrim Eye Drops) 10,000 Unit-1 Mg/Ml Drops, 1 DROP OS QID Prescribed by: COLTEN FRANKLIN on 03/04/22 1155 Potassium Chloride (Klor-Con 10) 10 Meq Tablet.er, 10 MEQ PO DAILY@0700 Prescribed by: BENY WHEELER on 12/20/21 1110 Pramipexole Di-HCl (Pramipexole Dihydrochloride) 0.5 Mg Tablet, 0.5 MG PO HS Prescribed by: BENY WHEELER on 12/20/21 1110 Quetiapine Fumarate (Quetiapine Fumarate) 400 Mg Tablet, 400 MG PO HS Prescribed by: BENY WHEELER on 12/20/21 1110 Review of Systems Review of Systems Constitutional: chills, malaise EENTM: no symptoms reported Respiratory: cough Cardiovascular: no symptoms reported Gastrointestinal: no symptoms reported Genitourinary: no symptoms reported Musculoskeletal: no symptoms reported Skin: no symptoms reported Psychiatric/Neurological: No Symptoms Reported Hematologic/Lymphatic: No Symptoms Reported Immunological/Allergic: no symptoms reported All Other Systems Reviewed Negative Unless Noted: Yes Past Pjaxfcx-Gciavf-Ykouxv Hx Patient Social History Alcohol Use?: No (chronic alcohol use but quit drinking November 2021) Immunizations Up To Date First/Initial COVID19 Vaccinat: Second COVID19 Vaccination Minor: February 2021 Third COVID19 Vaccination Date: Past Medical History Surgery/Hospitalization HX: Alcohol Abuse, Bipolar Surgeries: Yes Abdominal, Appendectomy, Gallbladder Respiratory: Yes COPD Cardiac: Yes Atrial Fibrillation, High Cholesterol, Hypertension Neurological: No Genitourinary: No Gastrointestinal: Yes Gastroesophageal Reflux Musculoskeletal: No Endocrine: No Cancer: No Psychosocial: Yes Bipolar Family Medical History No Pertinent Family Hx Physical Exam Vital Signs - First Documented 03/12/22 13:07 Temp 37.0 Pulse 81 Resp 18 B/P (MAP) 166/81 (109) Pulse Ox 94 O2 Delivery Room Air Capillary Refill : Height: '" Weight: lbs. oz. kg; 36.00 BMI Method: General Appearance: WD/WN, no apparent distress Eyes: Bilateral Eye Normal Inspection HEENT: PERRL/EOMI, normal ENT inspection, pharynx normal Neck: non-tender, full range of motion, supple, normal inspection Respiratory: chest non-tender, lungs clear, normal breath sounds, no respiratory distress, no accessory muscle use Cardiovascular: regular rate, rhythm, no edema, no murmur Gastrointestinal: normal bowel sounds, non tender, soft; No rebound Extremities: normal range of motion, non-tender, normal inspection, no pedal edema, no calf tenderness, normal capillary refill Neurologic/Psychiatric: no motor/sensory deficits, alert, normal mood/affect Skin: normal color, warm/dry Lymphatic: no adenopathy Progress/Results/Core Measures Suspected Sepsis SIRS Temperature: Pulse: Respiratory Rate: Laboratory Tests 03/12/22 13:40: White Blood Count 7.6 Blood Pressure / Mean: Laboratory Tests 03/12/22 13:40: Creatinine 0.85, INR Comment 1.0, Platelet Count 228, Total Bilirubin 0.4 Results/Orders Lab Results Laboratory Tests Test 03/12/22 13:40 03/12/22 13:44 Range/Units White Blood Count 7.6 4.3-11.0 10^3/uL Red Blood Count 3.58 L 3.80-5.11 10^6/uL Hemoglobin 11.0 L 11.5-16.0 g/dL Hematocrit 33 L 35-52 % Mean Corpuscular Volume 92 80-99 fL Mean Corpuscular Hemoglobin 31 25-34 pg Mean Corpuscular Hemoglobin Concent 34 32-36 g/dL Red Cell Distribution Width 14.8 H 10.0-14.5 % Platelet Count 228 130-400 10^3/uL Mean Platelet Volume 9.9 9.0-12.2 fL Immature Granulocyte % (Auto) 1 % Neutrophils (%) (Auto) 78 H 42-75 % Lymphocytes (%) (Auto) 18 12-44 % Monocytes (%) (Auto) 3 0-12 % Eosinophils (%) (Auto) 0 0-10 % Basophils (%) (Auto) 0 0-10 % Neutrophils # (Auto) 5.9 1.8-7.8 10^3/uL Lymphocytes # (Auto) 1.4 1.0-4.0 10^3/uL Monocytes # (Auto) 0.2 0.0-1.0 10^3/uL Eosinophils # (Auto) 0.0 0.0-0.3 10^3/uL Basophils # (Auto) 0.0 0.0-0.1 10^3/uL Immature Granulocyte # (Auto) 0.0 0.0-0.1 10^3/uL Prothrombin Time 14.0 12.2-14.7 SEC INR Comment 1.0 0.8-1.4 Activated Partial Thromboplast Time 29 24-35 SEC Sodium Level 138 135-145 MMOL/L Potassium Level 4.2 3.6-5.0 MMOL/L Chloride Level 100 98-107 MMOL/L Carbon Dioxide Level 25 21-32 MMOL/L Anion Gap 13 5-14 MMOL/L Blood Urea Nitrogen 13 7-18 MG/DL Creatinine 0.85 0.60-1.30 MG/DL Estimat Glomerular Filtration Rate 77 BUN/Creatinine Ratio 15 Glucose Level 129 H 70-105 MG/DL Calcium Level 9.9 8.5-10.1 MG/DL Corrected Calcium 9.5 8.5-10.1 MG/DL Total Bilirubin 0.4 0.1-1.0 MG/DL Aspartate Amino Transf (AST/SGOT) 23 5-34 U/L Alanine Aminotransferase (ALT/SGPT) 39 0-55 U/L Alkaline Phosphatase 98 40-136 U/L Troponin I < 0.30 <0.30 NG/ML Pro-B-Type Natriuretic Peptide 1488.0 H <125.0 PG/ML Total Protein 7.5 6.4-8.2 GM/DL Albumin 4.5 3.2-4.5 GM/DL Influenza Type A (RT-PCR) Not Detected Not Detecte Influenza Type B (RT-PCR) Not Detected Not Detecte SARS-CoV-2 RNA (RT-PCR) Not Detected Not Detecte My Orders Orders - SARA HAM MD Ed Iv/Invasive Line Start (03/12/22 13:26) Cbc With Automated Diff (03/12/22 13:26) Comprehensive Metabolic Panel (03/12/22 13:26) Protime With Inr (03/12/22 13:26) Partial Thromboplastin Time (03/12/22 13:26) Ekg Tracing (03/12/22 13:26) Influenza A And B By Pcr (03/12/22 13:26) Probnp Fs (03/12/22 13:26) Troponin I Fs (03/12/22 13:26) Chest 1 View Ap/Pa Only (03/12/22 13:26) Covid 19 Inhouse Test (03/12/22 13:26) Ct Angio Chest W (03/12/22 14:26) Iohexol Injection (Omnipaque 350 Mg/Ml 1 (03/12/22 14:45) Received Contrast (Hold Metformin- Contr (03/12/22 14:45) Sodium Chloride Flush (Catheter Flush Sy (03/12/22 14:45) Ns (Ivpb) (Sodium Chloride 0.9% Ivpb Bag (03/12/22 14:45) Medications Given in ED Current Medications Medications Dose Ordered Sig/Gallito Route Start Time Stop Time Status Last Admin Dose Admin Iohexol 100 ml ONCE ONCE IV 03/12/22 14:45 03/12/22 14:46 DC 03/12/22 14:56 100 ML Sodium Chloride 10 ml NEEDED PRN IV 03/12/22 14:45 03/12/22 14:56 10 ML Sodium Chloride 100 ml ONCE ONCE IV 03/12/22 14:45 03/12/22 14:46 DC 03/12/22 14:56 100 ML Vital Signs/I&O 03/12/22 13:07 Temp 37.0 Pulse 81 Resp 18 B/P (MAP) 166/81 (109) Pulse Ox 94 O2 Delivery Room Air Capillary Refill : Progress Note : Progress Note 61-year-old female with progressing productive cough with no streaks of blood. ABCs were intact and vitals were stable on presentation. Physical exam r eassuring with no focal abnormalities. The patient was here for quite some time, and was reevaluated, never had any type of hemoptysis here. She wears oxygen at home up to 2 L. Here she was on room air with an oxygen saturation of 96% or greater. Basic labs with no significant abnormality. CT chest performed due to the hemoptysis with no PE. She does have some signs of mild infection. She just finished doxycycline with little improvement, so we will start her on Levaquin. She was then discharged home in stable condition with strict return precautions. She should follow-up with her primary doctor to discuss if she should continue the blood thinners or if she should pause them. ECG Initial ECG Impression Date: Mar 12, 2022 Initial ECG Impression Time: 13:40 Initial ECG Rate: 78 Initial ECG Rhythm: Normal Sinus Comment Narrow QRS, normal axis, no significant ST changes or T wave abnormalities Diagnostic Imaging Diagonstic Imaging: Xray Plain Films/CT/US/NM/MRI: chest Comments [facility]. [place], [place] NAME: ALBINO LAZCANO [facility] REC#: [id number] PT STATUS: REG ER : 1960 PHYSICIAN: SARA HAM MD ADMIT DATE: 03/12/22/ER FS Draft Date of Exam:03/12/22 CHEST 1 VIEW AP/PA ONLY INDICATION: Hemoptysis. History of COVID pneumonia. IMPRESSION: 12/11/2021. FINDINGS: There is a linear region of airspace opacification within the inferior aspect of the right lung base. This is at the site of prior dense consolidation on comparison examination and may reflect a region of parenchymal scar. There is also some stable discoid atelectasis or scar within the mid left lung. There is unchanged elevation of the right hemidiaphragm. There may be a right-sided effusion. There is no clear evidence of a left effusion but there is no pneumothorax. There is enlargement of the cardiac silhouette which is unchanged from prior exam. IMPRESSION: 1. Enlarged cardiac silhouette and elevation of the right hemidiaphragm are stable from prior exam. 2. There is stable discoid atelectasis or scar in the mid left lung. There is also now linear opacification within the right lung base at the site of prior consolidation comparison examination that likely reflects a region of parenchymal scar. There may be a trace to small right-sided effusion. Dictated on workstation # [id number] Dict: 03/12/22 1405 Trans: 03/12/22 1414 [facility] [id number] Interpreted by: MAR BETTENCOURT MD Electronically signed by: Departure Impression Primary Impression: Cough with hemoptysis Disposition: HOME, SELF-CARE Condition: Stable Departure-Patient Inst. Decision time for Depature: 15:47 Referrals: SUNNY FUNEZ MD (PCP) Primary Care Physician Patient Instructions: Coughing up Blood Add. Discharge Instructions: It does look like there is still some infection in your lungs. You will be on a different antibiotic that is slightly stronger for the next week. Call your doctor in the next 3 days or so if things are not starting to improve. If you have large blood clots that are constantly coming up (more than a cup of blood), come back to the ER. If the bleeding increases, hold her blood thinners and call your regular doctor to ask when you should restart them. Scripts Levofloxacin (Levofloxacin) 750 Mg Tablet 750 MG PO DAILY for 7 Days, #7 TAB Prov: SARA HAM MD 03/12/22 Work/School Note: Work Release Form Date Seen in the Emergency Department: Mar 12, 2022 Return to Work: Mar 14, 2022 Restrictions: No Restrictions SARA HAM MD Mar 12, 2022 13:31
[2022-03-12 13:44] LABS: BASOPHILS % (AUTO) 0 % (0-10); EOSINOPHILS % (AUTO) 0 % (0-10); HEMATOCRIT 33 % (35-52); LYMPHOCYTES # (AUTO) 1.4 10^3/uL (1.0-4.0); LYMPHOCYTES % (AUTO) 18 % (12-44); MEAN CORPUSCULAR HEMOGLOBIN 31 pg (25-34); MEAN CORPUSCULAR HGB CONC 34 g/dL (32-36); MEAN CORPUSCULAR VOLUME 92 fL (80-99); MEAN PLATELET VOLUME 9.9 fL (9.0-12.2); MONOCYTES # (AUTO) 0.2 10^3/uL (0.0-1.0); MONOCYTES % (AUTO) 3 % (0-12); NEUTROPHILS # (AUTO) 5.9 10^3/uL (1.8-7.8); NEUTROPHILS % (AUTO) 78 % (42-75); PLATELET COUNT 228 10^3/uL (130-400); WHITE BLOOD COUNT 7.6 10^3/uL (4.3-11.0)
[2022-03-12 14:06] LABS: CHLORIDE 100 MMOL/L (98-107); POTASSIUM 4.2 MMOL/L (3.6-5.0); SODIUM 138 MMOL/L (135-145)
[2022-03-12 14:07] LABS: ALANINE AMINOTRANSFERASE 39 U/L (0-55); ALBUMIN 4.5 GM/DL (3.2-4.5); ALKALINE PHOSPHATASE 98 U/L (40-136); BILIRUBIN,TOTAL 0.4 MG/DL (0.1-1.0); BUN/CREATININE RATIO 15; CALCIUM 9.9 MG/DL (8.5-10.1); CARBON DIOXIDE 25 MMOL/L (21-32); CREATININE SERUM 0.85 MG/DL (0.60-1.30); GFR ESTIMATED 77; GLUCOSE 129 MG/DL (70-105); TOTAL PROTEIN 7.5 GM/DL (6.4-8.2)
--- NOTE | 2022-03-12 14:14 | Diagnostic Imaging Report ---
INDICATION: Hemoptysis. History of COVID pneumonia. IMPRESSION: 12/11/2021. FINDINGS: There is a linear region of airspace opacification within the inferior aspect of the right lung base. This is at the site of prior dense consolidation on comparison examination and may reflect a region of parenchymal scar. There is also some stable discoid atelectasis or scar within the mid left lung. There is unchanged elevation of the right hemidiaphragm. There may be a right-sided effusion. There is no clear evidence of a left effusion but there is no pneumothorax. There is enlargement of the cardiac silhouette which is unchanged from prior exam. IMPRESSION: 1. Enlarged cardiac silhouette and elevation of the right hemidiaphragm are stable from prior exam. 2. There is stable discoid atelectasis or scar in the mid left lung. There is also now linear opacification within the right lung base at the site of prior consolidation comparison examination that likely reflects a region of parenchymal scar. There may be a trace to small right-sided effusion. Dictated by: Dictated on workstation # [id number]
[2022-03-12] MEDS ORDERED: HOLD METFORMIN - RECEIVED CONTRAST 20 ML VIAL IV SCH (14:45)
[2022-03-12] MEDS ORDERED: NS 100 ML (IVPB) BAG IV ONE (14:45)
[2022-03-12] MEDS ORDERED: CATHETER FLUSH 10 ML SYR IV PRN (14:45)
[2022-03-12] MEDS ORDERED: IOHEXOL 350 MG/ML 100 ML (OMNIPAQUE 350) VIAL IV ONE (14:45)
--- NOTE | 2022-03-12 15:11 | Diagnostic Imaging Report ---
Procedure: CT angiography of the chest with contrast. Technique: Multiple contiguous axial images were obtained through the chest after uneventful bolus administration of intravenous contrast. 3D reconstructed CTA MIP acquisitions were also performed. Auto Exposure Controls were utilized during the CT exam to meet ALARA standards for radiation dose reduction. Indication: Hemoptysis and dyspnea. Comparison: 11/25/2021. Discussion: No pulmonary embolus identified. Infiltrates have decreased within both lungs. There is some residual groundglass infiltrate and/or atelectasis and scarring. Overall, the lungs show significantly improved aeration. No bronchiectasis. No pulmonary lesion. Mild cardiomegaly is stable. No pleural or pericardial fluid. Hiatal hernia is stable. Dilatation of the common bile duct is chronic in appearance. No adenopathy. No osseous abnormality identified. Thoracic aorta is normal in caliber and configuration. Impression: 1. No pulmonary embolus identified. 2. Infiltrates within the lungs have decreased from the prior exam. There is some linear scarring or atelectasis noted within the right midlung and lung bases. There is some mild groundglass infiltrate noted throughout which show a similar distribution to the prior exam on the right. These may be somewhat new on the left. This could represent a degree of waxing and waning pneumonia. Dictated by: Dictated on workstation # [id number]
[2022-03-12] MEDS ORDERED: LEVO750T PO (15:49)
[2022-03-12 15:55] VITALS: BP 143/82
== END 2022-03-12 15:57 | disposition home or self-care (01) ==
LOC: EDUNIT# 12:48 → ER FS 12:49
DX: R04.2 Hemoptysis (principal); R05.1 Acute cough; I48.91 Unspecified atrial fibrillation; J96.11 Chronic respiratory failure with hypoxia; Z99.81 Dependence on supplemental oxygen; Z20.822 Contact with and (suspected) exposure to COVID-19; Z79.01 Long term (current) use of anticoagulants
CPT/HCPCS: 36415; 71045; 71275; 80053; 83880; 84484; 85025; 85610; 85730; 87636; 93005; Q9967

== ENCOUNTER 2022-06-09 17:12 | Emergency (ER) | payer MEDICAID ==
[~2022-06-09] VITALS: Ht 165.1 cm; Wt 99.8 kg
[~2022-06-09 17:12] MED LIST changes: +LEVO750T PO
--- NOTE | 2022-06-09 17:23 | ED Chest Pain ---
General Stated Complaint: CP Source: patient Exam Limitations: no limitations History of Present Illness Date Seen by Provider: Jun 09, 2022 Time Seen by Provider: 17:15 Initial Comments 61-year-old female with history of A. 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 She states she is "been sick" for about 3 weeks. She describes flulike symptoms with body aches cough. She denies any fevers. Since that time she has had some intermittent chest pains. These are described as fleeting, states sharp stabbing pains in her anterior chest only last a few seconds and resolve spontaneously. She has had them 6 or 7 times today which is more frequent than she had been having them previously. She has not had to increase her oxygen at home. She has not been on any recent antibiotics and has no sick contacts. She denies any cardiac history but was told by her primary care doctor at the visit yesterday that she has a heart murmur. She denies knowing about a murmur previous to this. Allergies and Home Medications Allergies Coded Allergies: cephalexin (Verified Allergy, Severe, Has received ceftriaxone in the past w/o issue, 11/29/21) Patient Home Medication List Home Medication List Reviewed: Yes Amitriptyline HCl (Amitriptyline HCl) 10 Mg Tablet, 10 MG PO DAILY Prescribed by: BENY WHEELER on 12/20/21 1110 Apixaban (Eliquis) 5 Mg Tablet, 5 MG PO BID Prescribed by: CONI LEWIS JR, MD on 12/13/21 1111 Ascorbic Acid/Ascorbate Sodium (Vitamin C 250 mg Tablet Chew) 250 Mg Tab.chew, 250 MG PO DAILY, (Reported) Entered as Reported by: INGRID SLADE on 12/06/21 0946 Diazepam (Diazepam) 2 Mg Tablet, 2 MG PO BID PRN for ANXIETY Prescribed by: BENY WHEELER on 12/20/21 1111 Duloxetine HCl (Duloxetine HCl) 30 Mg Capsule.dr, 30 MG PO DAILY Prescribed by: BENY WHEELER on 12/20/21 1110 Ferrous Sulfate (Iron) 325 Mg (65 Mg Iron) Tablet, 325 MG PO DAILY, (Reported) Entered as Reported by: INGRID SLADE on 12/06/21 0947 Flecainide Acetate (Flecainide Acetate) 100 Mg Tablet, 100 MG PO BID Prescribed by: CONI LWEIS JR, MD on 12/13/21 1111 Fluoxetine HCl (Fluoxetine HCl) 40 Mg Capsule, 40 MG PO DAILY Prescribed by: BENY WHEELER on 12/20/21 111 Fluticasone/Salmeterol (Fluticasone-Salmeterol 113-14) 113 Mcg-14 Mcg/Actuation Aer.pow.ba, 0 EACH IH RTBID Prescribed by: BENY WHEELER on 12/20/21 111 Gabapentin (Gabapentin) 100 Mg Capsule, 100 MG PO TID Prescribed by: BENY WHEELER on 12/20/21 111 Hydrochlorothiazide (Hydrochlorothiazide) 25 Mg Tablet, 25 MG PO DAILY Prescribed by: BENY WHEELER on 12/20/21 111 Lactobacillus Acidophilus/Pect (Acidophilus-Pectin Capsule) 75 Million Cell-100 Mg Capsule, 2 EACH PO TIDWM Prescribed by: BENY WHEELER on 12/20/21 111 Levofloxacin (Levofloxacin) 750 Mg Tablet, 750 MG PO DAILY Prescribed by: SARA HAM on 03/12/22 1549 Loperamide HCl (Imodium A-D) 1 Mg/7.5 Ml Liquid, 1 MG PO Q4H PRN for DIARRHEA, (Reported) Entered as Reported by: INGRID SLADE on 06/28/21 0834 Metoprolol Succinate (Metoprolol Succinate) 50 Mg Tab.er.24h, 100 MG PO DAILY Prescribed by: CONI LEWIS JR, MD on 12/13/21 1113 Multivit-Minerals/Folic Acid (Multivitamin Gummies) 200 Mcg Tab.chew, 200 MCG PO DAILY, (Reported) Entered as Reported by: INGRID SLADE on 12/06/21 0946 Oxycodone Hcl (Oxyir Tablet) 5 Mg Tab, 5 MG PO Q6HR PRN for PAIN-SEE DOSE INSTRUCTIONS Prescribed by: BENY WHEELER on 12/20/21 1111 Pantoprazole Sodium (Pantoprazole Sodium) 40 Mg Tablet.dr, 40 MG PO BID Prescribed by: BENY WHEELER on 12/20/21 111 Polymyxin B Sulf/Trimethoprim (Polytrim Eye Drops) 10,000 Unit-1 Mg/Ml Drops, 1 DROP OS QID Prescribed by: COLTEN FRANKLIN on 03/04/22 1155 Potassium Chloride (Klor-Con 10) 10 Meq Tablet.er, 10 MEQ PO DAILY@0700 Prescribed by: BENY WHEELER on 12/20/21 1110 Pramipexole Di-HCl (Pramipexole Dihydrochloride) 0.5 Mg Tablet, 0.5 MG PO HS Prescribed by: BENY WHEELER on 12/20/21 1110 Quetiapine Fumarate (Quetiapine Fumarate) 400 Mg Tablet, 400 MG PO HS Prescribed by: BENY WHEELER on 12/20/21 1110 Review of Systems Review of Systems Constitutional: no symptoms reported EENTM: No Symptoms Reported Respiratory: Cough, Shortness of Air Cardiovascular: Chest Pain Gastrointestinal: No Symptoms Reported Genitourinary: No Symptoms Reported Musculoskeletal: no symptoms reported Skin: no symptoms reported Psychiatric/Neurological: No Symptoms Reported Endocrine: No Symptoms Reported Hematologic/Lymphatic: No Symptoms Reported Past Sjrjznx-Cyotgs-Jbonmt Hx Patient Social History Tobacco Use?: No Use of E-Cig and/or Vaping dev: No Substance use?: No Alcohol Use?: Yes Immunizations Up To Date First/Initial COVID19 Vaccinat: Second COVID19 Vaccination Minor: February 2021 Third COVID19 Vaccination Date: Past Medical History Surgery/Hospitalization HX: Alcohol Abuse, Bipolar, HTN, COPD Surgeries: Yes Abdominal, Appendectomy, Gallbladder Respiratory: Yes COPD Cardiac: Yes Atrial Fibrillation, High Cholesterol, Hypertension Neurological: No Genitourinary: No Gastrointestinal: Yes Gastroesophageal Reflux Musculoskeletal: No Endocrine: No Cancer: No Psychosocial: Yes Bipolar Family Medical History Reviewed Nursing Family Hx No Pertinent Family Hx Physical Exam Vital Signs Vital Signs - First Documented 06/09/22 17:18 Temp 35.4 Pulse 79 Resp 19 B/P (MAP) 161/108 (125) O2 Delivery Room Air Capillary Refill : Height, Weight, BMI Height: '" Weight: lbs. oz. kg; 35.00 BMI Method: General Appearance: No Apparent Distress HEENT: Normal ENT Inspection, Pharynx Normal Neck: Full Range of Motion, Normal Inspection, Non Tender, Supple Respiratory: Chest Non Tender, Lungs Clear, Normal Breath Sounds, No Accessory Muscle Use, No Respiratory Distress Cardiovascular: Regular Rate, Rhythm, No Edema, Normal Peripheral Pulses, Systolic Murmur (3/6 RSB) Extremity: Normal Capillary Refill, Normal Inspection, No Calf Tenderness Neurologic/Psychiatric: Alert, Oriented x3, Normal Mood/Affect Skin: Normal Color, Warm/Dry Lymphatic: No Adenopathy Progress/Results/Core Measures Results/Orders Lab Results Laboratory Tests Test 06/09/22 17:19 Range/Units White Blood Count 9.1 4.3-11.0 10^3/uL Red Blood Count 3.48 L 3.80-5.11 10^6/uL Hemoglobin 10.6 L 11.5-16.0 g/dL Hematocrit 32 L 35-52 % Mean Corpuscular Volume 91 80-99 fL Mean Corpuscular Hemoglobin 31 25-34 pg Mean Corpuscular Hemoglobin Concent 33 32-36 g/dL Red Cell Distribution Width 13.9 10.0-14.5 % Platelet Count 192 130-400 10^3/uL Mean Platelet Volume 9.9 9.0-12.2 fL Immature Granulocyte % (Auto) 0 % Neutrophils (%) (Auto) 71 42-75 % Lymphocytes (%) (Auto) 21 12-44 % Monocytes (%) (Auto) 6 0-12 % Eosinophils (%) (Auto) 2 0-10 % Basophils (%) (Auto) 0 0-10 % Neutrophils # (Auto) 6.4 1.8-7.8 10^3/uL Lymphocytes # (Auto) 1.9 1.0-4.0 10^3/uL Monocytes # (Auto) 0.5 0.0-1.0 10^3/uL Eosinophils # (Auto) 0.2 0.0-0.3 10^3/uL Basophils # (Auto) 0.0 0.0-0.1 10^3/uL Immature Granulocyte # (Auto) 0.0 0.0-0.1 10^3/uL Sodium Level 139 135-145 MMOL/L Potassium Level 3.8 3.6-5.0 MMOL/L Chloride Level 100 98-107 MMOL/L Carbon Dioxide Level 27 21-32 MMOL/L Anion Gap 12 5-14 MMOL/L Blood Urea Nitrogen 18 7-18 MG/DL Creatinine 0.97 0.60-1.30 MG/DL Estimat Glomerular Filtration Rate 66 BUN/Creatinine Ratio 19 Glucose Level 105 70-105 MG/DL Calcium Level 9.4 8.5-10.1 MG/DL Corrected Calcium 9.1 8.5-10.1 MG/DL Total Bilirubin 0.5 0.1-1.0 MG/DL Aspartate Amino Transf (AST/SGOT) 14 5-34 U/L Alanine Aminotransferase (ALT/SGPT) 20 0-55 U/L Alkaline Phosphatase 111 40-136 U/L Total Protein 7.2 6.4-8.2 GM/DL Albumin 4.4 3.2-4.5 GM/DL My Orders Orders - GOOD FERNANDO DO Cbc With Automated Diff (06/09/22 17:21) Comprehensive Metabolic Panel (06/09/22 17:21) Troponin I Valerie (06/09/22 17:21) Chest 1 View Ap/Pa Only (06/09/22 17:21) Ekg Tracing (06/09/22 17:29) Vital Signs/I&O 06/09/22 17:18 Temp 35.4 Pulse 79 Resp 19 B/P (MAP) 161/108 (125) O2 Delivery Room Air Comment Sinus rhythm. 76 bpm. Normal intervals. Normal axis. No ST or T wave abnormalities. No ectopy. No STEMI. Departure Communication (Admissions) Pt is hemodynamically stable. She does have significant cardiac risk factors however her story does not likely indicate a cardiac etiology. Symptoms were more towards pleuritic type chest pain which she has had in the past. No evidence for ACS at this time with a normal EKG, negative troponin. Chest x-ray showed chronic changes but no acute findings. No evidence for pneumonia, pneumothorax. She will be discharged with supportive care and close follow-up. Impression Primary Impression: Pleurisy Disposition: 01 HOME, SELF-CARE Condition: Stable Departure-Patient Inst. Referrals: SUNNY FUNEZ MD (PCP/Family) Primary Care Physician Patient Instructions: Pleuritic Chest Pain Add. Discharge Instructions: Use motrin and tylenol as needed for pain. Follow up with your primary doctor should your symptoms persist. Return to the ER for any non emergent needs. GOOD FERNANDO DO Jun 09, 2022 17:23
[2022-06-09 17:30] LABS: BASOPHILS % (AUTO) 0 % (0-10); EOSINOPHILS # (AUTO) 0.2 10^3/uL (0.0-0.3); EOSINOPHILS % (AUTO) 2 % (0-10); HEMATOCRIT 32 % (35-52); HEMOGLOBIN 10.6 g/dL (11.5-16.0); LYMPHOCYTES # (AUTO) 1.9 10^3/uL (1.0-4.0); LYMPHOCYTES % (AUTO) 21 % (12-44); MEAN CORPUSCULAR HEMOGLOBIN 31 pg (25-34); MEAN CORPUSCULAR HGB CONC 33 g/dL (32-36); MEAN CORPUSCULAR VOLUME 91 fL (80-99); MEAN PLATELET VOLUME 9.9 fL (9.0-12.2); MONOCYTES # (AUTO) 0.5 10^3/uL (0.0-1.0); MONOCYTES % (AUTO) 6 % (0-12); NEUTROPHILS # (AUTO) 6.4 10^3/uL (1.8-7.8); NEUTROPHILS % (AUTO) 71 % (42-75); PLATELET COUNT 192 10^3/uL (130-400); WHITE BLOOD COUNT 9.1 10^3/uL (4.3-11.0)
--- NOTE | 2022-06-09 17:49 | Diagnostic Imaging Report ---
INDICATION: Cough and chest pain. COMPARISON: 03/12/2022. FINDINGS: The heart is enlarged, unchanged. There is some vascular congestion, unchanged. Streaky perihilar linear opacities and zones of partial atelectasis versus scarring are present. Some of this is stable. Others are new. No alveolar consolidation. No effusion or pneumothorax. IMPRESSION: Similar to the prior the some zones of linear perihilar scarring, stable, as well as likely some increased subsegmental atelectasis. Unchanged cardiomegaly and mild vascular congestion, but no taylor edema, pleural fluid, pneumothorax, or pneumonic consolidation. Dictated by: Dictated on workstation # [id number]
[2022-06-09 17:58] LABS: ALANINE AMINOTRANSFERASE 20 U/L (0-55); ALKALINE PHOSPHATASE 111 U/L (40-136); BILIRUBIN,TOTAL 0.5 MG/DL (0.1-1.0); BUN/CREATININE RATIO 19; CALCIUM 9.4 MG/DL (8.5-10.1); CARBON DIOXIDE 27 MMOL/L (21-32); CHLORIDE 100 MMOL/L (98-107); CREATININE SERUM 0.97 MG/DL (0.60-1.30); GFR ESTIMATED 66; GLUCOSE 105 MG/DL (70-105); POTASSIUM 3.8 MMOL/L (3.6-5.0); SODIUM 139 MMOL/L (135-145)
[2022-06-09 17:59] LABS: ALBUMIN 4.4 GM/DL (3.2-4.5); TOTAL PROTEIN 7.2 GM/DL (6.4-8.2)
[2022-06-09 19:32] VITALS: BP 124/71
== END 2022-06-09 19:33 | disposition home or self-care (01) ==
LOC: EDUNIT# 17:12 → ER FS 17:13
DX: R09.1 Pleurisy (principal); Z86.16 Personal history of COVID-19; Z28.311 Partially vaccinated for COVID-19; Z99.81 Dependence on supplemental oxygen
CPT/HCPCS: 36415; 71045; 80053; 84484; 85025

== ENCOUNTER 2022-10-06 18:27 | Emergency (ER) | payer MEDICAID ==
[~2022-10-06] VITALS: Ht 165.1 cm; Wt 100.0 kg
[2022-10-06 18:53] LABS: BASOPHILS % (AUTO) 0 % (0-10); EOSINOPHILS % (AUTO) 0 % (0-10); HEMATOCRIT 42 % (35-52); LYMPHOCYTES # (AUTO) 1.5 10^3/uL (1.0-4.0); LYMPHOCYTES % (AUTO) 20 % (12-44); MEAN CORPUSCULAR HEMOGLOBIN 30 pg (25-34); MEAN CORPUSCULAR HGB CONC 34 g/dL (32-36); MEAN CORPUSCULAR VOLUME 90 fL (80-99); MEAN PLATELET VOLUME 10.1 fL (9.0-12.2); MONOCYTES # (AUTO) 0.3 10^3/uL (0.0-1.0); MONOCYTES % (AUTO) 4 % (0-12); NEUTROPHILS # (AUTO) 5.8 10^3/uL (1.8-7.8); NEUTROPHILS % (AUTO) 76 % (42-75); PLATELET COUNT 174 10^3/uL (130-400); WHITE BLOOD COUNT 7.6 10^3/uL (4.3-11.0)
--- NOTE | 2022-10-06 19:13 | ED General ---
General Chief Complaint: Abdominal/GI Problems Stated Complaint: DIZZINESS,SOB,N/V/D Nursing Triage Note: PT AMBULATE TO ROOM FS06 WITH C/O N/V/D, GENERAL WEAKNESS X4 DAYS. PT REPORTS HEARING VOICES DESCRIBING WAYS THEY ARE GOING TO KILL HER. PT DENIES SI/HI. Source of Information: Patient History of Present Illness Date Seen by Provider: Oct 06, 2022 Time Seen by Provider: 18:30 Initial Comments 62-year-old female presenting by private vehicle to the emergency department with complaints of 4 days of nausea and diarrhea. She states that she has been having generalized weakness as well. She denies any pain or burning with urination. She has not seen any blood with her diarrhea. She has been hearing voices for over a month telling her ways to kill her herself. She denies having suicidal or homicidal ideations. She did see the provider through [facility] and got medication for her auditory hallucinations but states that it has not helped. She is feeling dizzy and lightheaded when she stands up. Since this has been going on for the last 4 days she came to the emergency department tonight. Timing/Duration: 3-4 Days Severity: Moderate Modifying Factors: worse with Eating Associated Systoms: No Chest Pain, No Cough, No Diaphoresis, No Fever/Chills, No Headaches, No Loss of Appetite; Malaise, Nausea/Vomiting; No Rash, No Seizure; Shortness of Air; No Syncope; Weakness Allergies and Home Medications Allergies Coded Allergies: cephalexin (Verified Allergy, Severe, Has received ceftriaxone in the past w/o issue, 11/29/21) Latex, Natural Rubber (Verified Allergy, Unknown, 10/06/22) Patient Home Medication List Home Medication List Reviewed: Yes Amitriptyline HCl (Amitriptyline HCl) 10 Mg Tablet, 10 MG PO DAILY Prescribed by: BENY WHEELER on 12/20/21 1110 Apixaban (Eliquis) 5 Mg Tablet, 5 MG PO BID Prescribed by: CONI LEWIS JR, MD on 12/13/21 1111 Ascorbic Acid/Ascorbate Sodium (Vitamin C 250 mg Tablet Chew) 250 Mg Tab.chew, 250 MG PO DAILY, (Reported) Entered as Reported by: INGRID SLADE on 12/06/21 0946 Diazepam (Diazepam) 2 Mg Tablet, 2 MG PO BID PRN for ANXIETY Prescribed by: BENY WHEELER on 12/20/21 1111 Duloxetine HCl (Duloxetine HCl) 30 Mg Capsule.dr, 30 MG PO DAILY Prescribed by: BENY WHEELER on 12/20/21 1110 Ferrous Sulfate (Iron) 325 Mg (65 Mg Iron) Tablet, 325 MG PO DAILY, (Reported) Entered as Reported by: INGRID SLADE on 12/06/21 0947 Flecainide Acetate (Flecainide Acetate) 100 Mg Tablet, 100 MG PO BID Prescribed by: CONI LEWIS JR, MD on 12/13/21 1111 Fluoxetine HCl (Fluoxetine HCl) 40 Mg Capsule, 40 MG PO DAILY Prescribed by: BENY WHEELER on 12/20/21 1110 Fluticasone/Salmeterol (Fluticasone-Salmeterol 113-14) 113 Mcg-14 Mcg/Actuation Aer.pow.ba, 0 EACH IH RTBID Prescribed by: BENY WHEELER on 12/20/21 111 Gabapentin (Gabapentin) 100 Mg Capsule, 100 MG PO TID Prescribed by: BENY WHEELER on 12/20/21 111 Hydrochlorothiazide (Hydrochlorothiazide) 25 Mg Tablet, 25 MG PO DAILY Prescribed by: BENY WHEELER on 12/20/21 1110 Lactobacillus Acidophilus/Pect (Acidophilus-Pectin Capsule) 75 Million Cell-100 Mg Capsule, 2 EACH PO TIDWM Prescribed by: BENY WHEELER on 12/20/21 111 Levofloxacin (Levofloxacin) 750 Mg Tablet, 750 MG PO DAILY Prescribed by: SARA HAM on 03/12/22 1549 Loperamide HCl (Imodium A-D) 1 Mg/7.5 Ml Liquid, 1 MG PO Q4H PRN for DIARRHEA, (Reported) Entered as Reported by: INGRID SLADE on 06/28/21 0834 Metoprolol Succinate (Metoprolol Succinate) 50 Mg Tab.er.24h, 100 MG PO DAILY Prescribed by: CONI LEWIS JR, MD on 12/13/21 1113 Multivit-Minerals/Folic Acid (Multivitamin Gummies) 200 Mcg Tab.chew, 200 MCG PO DAILY, (Reported) Entered as Reported by: INGRID SLADE on 12/06/21 0946 Oxycodone Hcl (Oxyir Tablet) 5 Mg Tab, 5 MG PO Q6HR PRN for PAIN-SEE DOSE INSTRUCTIONS Prescribed by: BENY WHEELER on 12/20/21 1111 Pantoprazole Sodium (Pantoprazole Sodium) 40 Mg Tablet.dr, 40 MG PO BID Prescribed by: BENY WHEELER on 12/20/21 1110 Polymyxin B Sulf/Trimethoprim (Polytrim Eye Drops) 10,000 Unit-1 Mg/Ml Drops, 1 DROP OS QID Prescribed by: COLTEN FRANKLIN on 03/04/22 1155 Potassium Chloride (Klor-Con 10) 10 Meq Tablet.er, 10 MEQ PO DAILY@0700 Prescribed by: BENY WHEELER on 12/20/21 1110 Pramipexole Di-HCl (Pramipexole Dihydrochloride) 0.5 Mg Tablet, 0.5 MG PO HS Prescribed by: BENY WHEELER on 12/20/21 1110 Promethazine HCl (Promethazine Tablet) 25 Mg Tablet, 25 MG PO Q6H PRN for NAUS EA/VOMITING Prescribed by: COLTEN FRANKLIN on 10/06/222051 Quetiapine Fumarate (Quetiapine Fumarate) 400 Mg Tablet, 400 MG PO HS Prescribed by: BENY WHEELER on 12/20/21 1110 Sulfamethoxazole/Trimethoprim (Bactrim Ds Tablet) 1 Each Tablet, 1 EACH PO BID Prescribed by: COLTEN FRANKLIN on 10/06/222051 Review of Systems Review of Systems Constitutional: No chills; dizziness (With standing); No fever; malaise, weakness EENTM: no symptoms reported Respiratory: see HPI, short of breath; No stridor; wheezing Cardiovascular: No chest pain Gastrointestinal: No abdominal pain; diarrhea, nausea, vomiting Genitourinary: No dysuria Musculoskeletal: no symptoms reported Skin: No rash Psychiatric/Neurological: Anxiety, Emotional Problems Past Hkqlerf-Wwothu-Hrptym Hx Patient Social History Tobacco Use?: No Smoking Status: Never a Smoker Smokeless Tobacco Frequency: Never a User Use of E-Cig and/or Vaping dev: No Substance use?: No Alcohol Use?: Yes Alcohol Frequency: Once in a while Pt feels they are or have been: No Immunizations Up To Date First/Initial COVID19 Vaccinat: Second COVID19 Vaccination Minor: February 2021 Third COVID19 Vaccination Date: Past Medical History Surgery/Hospitalization HX: Alcohol Abuse, Bipolar, HTN, COPD Surgeries: Yes Abdominal, Appendectomy, Gallbladder Respiratory: Yes COPD Cardiac: Yes Atrial Fibrillation, High Cholesterol, Hypertension Neurological: No Genitourinary: No Gastrointestinal: Yes Gastroesophageal Reflux Musculoskeletal: No Endocrine: No Cancer: No Psychosocial: Yes Bipolar Family Medical History No Pertinent Family Hx Physical Exam Vital Signs Vital Signs - First Documented 10/06/22 10/06/22 18:30 21:36 Temp 36.8 Pulse 72 Resp 18 B/P (MAP) 121/92 (102) Pulse Ox 98 O2 Delivery Room Air Capillary Refill : Less Than 3 Seconds Height, Weight, BMI Height: '" Weight: lbs. oz. kg; 36.00 BMI Method: General Appearance: No Apparent Distress, Anxious, Obese HEENT: PERRL/EOMI, Pharynx Normal, Moist Mucous Membranes Neck: Full Range of Motion, Normal Inspection, Non Tender, Supple Respiratory: Chest Non Tender, No Accessory Muscle Use, No Respiratory Distre ss, Decreased Breath Sounds, Wheezing (Expiratory wheezing) Cardiovascular: Regular Rate, Rhythm, Normal Peripheral Pulses Gastrointestinal: Normal Bowel Sounds, No Pulsatile Mass, Non Tender, Soft Extremity: Normal Capillary Refill, Normal Inspection, No Pedal Edema Neurologic/Psychiatric: Alert, Oriented x3 Skin: Normal Color, Warm/Dry Progress/Results/Core Measures Suspected Sepsis SIRS Temperature: Pulse: 72 Respiratory Rate: 18 Laboratory Tests 10/06/22 18:47: White Blood Count 7.6 Blood Pressure 121 /92 Mean: 102 Laboratory Tests 10/06/22 18:47: Creatinine 1.07, Platelet Count 174, Total Bilirubin 0.8 Results/Orders Lab Results Laboratory Tests Test 10/06/22 18:47 10/06/22 19:55 Range/Units White Blood Count 7.6 4.3-11.0 10^3/uL Red Blood Count 4.66 3.80-5.11 10^6/uL Hemoglobin 14.0 11.5-16.0 g/dL Hematocrit 42 35-52 % Mean Corpuscular Volume 90 80-99 fL Mean Corpuscular Hemoglobin 30 25-34 pg Mean Corpuscular Hemoglobin Concent 34 32-36 g/dL Red Cell Distribution Width 13.7 10.0-14.5 % Platelet Count 174 130-400 10^3/uL Mean Platelet Volume 10.1 9.0-12.2 fL Immature Granulocyte % (Auto) 0 % Neutrophils (%) (Auto) 76 H 42-75 % Lymphocytes (%) (Auto) 20 12-44 % Monocytes (%) (Auto) 4 0-12 % Eosinophils (%) (Auto) 0 0-10 % Basophils (%) (Auto) 0 0-10 % Neutrophils # (Auto) 5.8 1.8-7.8 10^3/uL Lymphocytes # (Auto) 1.5 1.0-4.0 10^3/uL Monocytes # (Auto) 0.3 0.0-1.0 10^3/uL Eosinophils # (Auto) 0.0 0.0-0.3 10^3/uL Basophils # (Auto) 0.0 0.0-0.1 10^3/uL Immature Granulocyte # (Auto) 0.0 0.0-0.1 10^3/uL Sodium Level 137 135-145 MMOL/L Potassium Level 3.8 3.6-5.0 MMOL/L Chloride Level 98 98-107 MMOL/L Carbon Dioxide Level 23 21-32 MMOL/L Anion Gap 16 H 5-14 MMOL/L Blood Urea Nitrogen 17 7-18 MG/DL Creatinine 1.07 0.60-1.30 MG/DL Estimat Glomerular Filtration Rate 58 BUN/Creatinine Ratio 16 Glucose Level 156 H 70-105 MG/DL Calcium Level 9.7 8.5-10.1 MG/DL Corrected Calcium 9.3 8.5-10.1 MG/DL Magnesium Level 2.0 1.6-2.4 MG/DL Total Bilirubin 0.8 0.1-1.0 MG/DL Aspartate Amino Transf (AST/SGOT) 282 H 5-34 U/L Alanine Aminotransferase (ALT/SGPT) 187 H 0-55 U/L Alkaline Phosphatase 261 H 40-136 U/L Troponin I < 0.30 <0.30 NG/ML Pro-B-Type Natriuretic Peptide 2178.0 H <125.0 PG/ML Total Protein 7.5 6.4-8.2 GM/DL Albumin 4.5 3.2-4.5 GM/DL Lipase 18 8-78 U/L Salicylates Level < 0.3 L 5.0-20.0 MG/DL Acetaminophen Level < 10 L 10-30 UG/ML Serum Alcohol < 10 <10 MG/DL Urine Color YELLOW Urine Clarity SL CLOUDY Urine pH 5.5 5-9 Urine Specific Graham >=1.030 1.016-1.022 Urine Protein 1+ H NEGATIVE Urine Glucose (UA) NEGATIVE NEGATIVE Urine Ketones TRACE H NEGATIVE Urine Nitrite POSITIVE H NEGATIVE Urine Bilirubin 2+ H NEGATIVE Urine Urobilinogen 0.2 < = 1.0 MG/DL Urine Leukocyte Esterase 1+ H NEGATIVE Urine RBC (Auto) NEGATIVE NEGATIVE Urine RBC NONE /HPF Urine WBC 10-25 H /HPF Urine Squamous Epithelial Cells 0-2 /HPF Urine Crystals NONE /LPF Urine Bacteria LARGE H /HPF Urine Casts PRESENT /LPF Urine Hyaline Casts 2-5 H /LPF Urine Granular Casts 2-5 H /LPF Urine Mucus NEGATIVE /LPF Urine Culture Indicated YES Urine Opiates Screen POSITIVE H NEGATIVE Urine Oxycodone Screen NEGATIVE NEGATIVE Urine Methadone Screen NEGATIVE NEGATIVE Urine Propoxyphene Screen NEGATIVE NEGATIVE Urine Barbiturates Screen NEGATIVE NEGATIVE Ur Tricyclic Antidepressants Screen POSITIVE H NEGATIVE Urine Phencyclidine Screen NEGATIVE NEGATIVE Urine Amphetamines Screen NEGATIVE NEGATIVE Urine Methamphetamines Screen NEGATIVE NEGATIVE Urine Benzodiazepines Screen NEGATIVE NEGATIVE Urine Cocaine Screen NEGATIVE NEGATIVE Urine Cannabinoids Screen NEGATIVE NEGATIVE My Orders Orders - COLTEN FRANKLIN MD Ua Culture If Indicated (10/06/22 18:34) Cbc With Automated Diff (10/06/22 18:34) Comprehensive Metabolic Panel (10/06/22 18:34) Alcohol (10/06/22 18:34) Drug Screen Stat (Urine) (10/06/22 18:34) Acetaminophen (10/06/22 18:34) Salicylate (10/06/22 18:34) Ekg Tracing (10/06/22 18:34) Ed Iv/Invasive Line Start (10/06/22 18:34) Monitor-Rhythm Ecg Trace Only (10/06/22 18:34) Lipase (10/06/22 18:34) Troponin I Fs (10/06/22 18:34) Probnp Fs (10/06/22 18:34) Magnesium (10/06/22 18:34) Ns Iv 1000 Ml (Sodium Chloride 0.9%) (10/06/22 19:14) Pantoprazole Injection (Protonix Injecti (10/06/22 19:14) Ondansetron Injection (Zofran Injectio (10/06/22 19:14) Urine Culture (10/06/22 19:55) Levofloxacin 500 Mg/100 Ml Iv (Levaquin (10/06/22 20:32) Vital Signs/I&O 10/06/22 10/06/22 18:30 21:36 Temp 36.8 36.5 Pulse 72 91 Resp 18 18 B/P (MAP) 121/92 (102) 112/56 Pulse Ox 98 O2 Delivery Room Air Room Air Capillary Refill : Less Than 3 Seconds Blood Pressure Mean: 102 Progress Note #1: Progress Note Potential diagnosis of gastroenteritis, electrolyte imbalance, alcohol abuse, polysubstance abuse, pancreatitis, diverticulitis, colitis, pyelonephritis. Obtain peripheral IV access and send labs for complete blood count, comprehensive metabolic profile, acetaminophen level, salicylate level, alcohol level, magnesium, urinalysis, urine drug screen. Administer normal saline 1 L IV fluid bolus for hydration, Protonix 40 mg IV for possible gastritis, Zofran 4 mg IV for nausea and vomiting. Advised if she has any diarrhea here to let us know so we could collect a specimen. Progress Note #2: Progress Note Her white blood cell count was normal at 7.6. She had normal basic electrolytes on her comprehensive metabolic profile. Her renal function was normal as well. She did have elevated liver enzymes with an AST of 282, ALT of 187, alkaline phosphatase of 261. Her sugar was slightly elevated at 156. Her magnesium was normal at 2. Her troponin was negative at less than 0.3. She did have a mild elevation of her proBNP to 2178. Her urinalysis showed dehydration with elevated specific gravity greater than 1.030. She had positive nitrites with 1+ leukocyte esterase 10-25 white blood cells and large bacteria for UTI. She had been on a course of Macrobid on September 12. Her last urine culture through [facility] has shown E. coli that was pansensitive. Will administer a dose of Levaquin IV here and discharged on Bactrim DS. Have patient drink here to ensure that she was going to keep fluids down. Advised if she has any diarrhea here we would collect a specimen for testing. Encouraged to call Dr. Morales and [facility] clinic in am about her medications and see if they want to adjust or change anything to help her more with the chronic conditions and hallucinations. 2109 She is tolerating po in the ED and has not had any vomiting or diarrhea. Will discharge as planned above. Departure Impression Primary Impression: Acute cystitis without hematuria Additional Impression: Nausea vomiting and diarrhea Disposition: HOME, SELF-CARE Condition: Stable Departure-Patient Inst. Decision time for Depature: 20:49 Referrals: SUNNY FUNEZ MD (PCP/Family) Primary Care Physician Patient Instructions: Nausea and Vomiting, Adult ED, Urinary Tract Infection, Adult ED, Diarrhea, Adult ED Add. Discharge Instructions: Take the full course of antibiotics to treat for urine infection. Drink plenty of water and electrolyte drinks to help keep hydrated. Use the nausea medicine to help keep your stomach settled. Take your nausea medicine and antibiotics from the time you take your potassium pills by at least an hour or two. Check back with clinic and Dr. Morales about your medications as they may need to adjust them or try something different. All discharge instructions reviewed with patient and/or family. Voiced understanding. Scripts Promethazine HCl (Promethazine Tablet) 25 Mg Tablet 25 MG PO Q6H PRN for NAUSEA/VOMITING for 3 Days, #12 TAB 0 Refills Prov: COLTEN FRANKLIN MD 10/06/22 Sulfamethoxazole/Trimethoprim (Bactrim Ds Tablet) 1 Each Tablet 1 EACH PO BID for UTI for 5 Days, #10 TAB 0 Refills Prov: COLTEN FRANKLIN MD 10/06/22 COLTEN FRANKLIN MD Oct 06, 2022 19:13
[2022-10-06] MEDS ORDERED: ONDANSETRON 4 MG/2 ML (SDV) Z0FRAN IVP STA (19:14)
[2022-10-06] MEDS ORDERED: NS IV 1000 ML 1,000 ML IV STA (19:14)
[2022-10-06] MEDS ORDERED: PANTOPRAZOLE 40 MG (PROTONIX) VIAL IV STA (19:14)
[2022-10-06 19:27] LABS: SODIUM 137 MMOL/L (135-145)
[2022-10-06 19:28] LABS: ALANINE AMINOTRANSFERASE 187 U/L (0-55); ALBUMIN 4.5 GM/DL (3.2-4.5); ALKALINE PHOSPHATASE 261 U/L (40-136); BILIRUBIN,TOTAL 0.8 MG/DL (0.1-1.0); BUN/CREATININE RATIO 16; CALCIUM 9.7 MG/DL (8.5-10.1); CARBON DIOXIDE 23 MMOL/L (21-32); CHLORIDE 98 MMOL/L (98-107); CREATININE SERUM 1.07 MG/DL (0.60-1.30); GFR ESTIMATED 58; GLUCOSE 156 MG/DL (70-105); POTASSIUM 3.8 MMOL/L (3.6-5.0); TOTAL PROTEIN 7.5 GM/DL (6.4-8.2)
[2022-10-06 19:29] LABS: ACETAMINOPHEN < 10 UG/ML (10-30); SALICYLATE < 0.3 MG/DL (5.0-20.0)
[2022-10-06 19:30] LABS: LIPASE 18 U/L (8-78)
[2022-10-06 20:04] LABS: CLARITY,URINE SL CLOUDY; COLOR,URINE YELLOW; GLUCOSE, URINE (UA) NEGATIVE (NEGATIVE); KETONES,URINE TRACE (NEGATIVE); LEUKOCYTE ESTERASE ,URINE 1+ (NEGATIVE); NITRITE,URINE POSITIVE (NEGATIVE); PH,URINE 5.5 (5-9); PROTEIN,URINE 1+ (NEGATIVE)
[2022-10-06 20:14] LABS: BILIRUBIN,URINE 2+ (NEGATIVE)
[2022-10-06 20:15] LABS: BACTERIA,URINE LARGE /HPF; SQUAMOUS EPITHELIAL CELL,UR 0-2 /HPF
[2022-10-06 20:16] LABS: OPIATE SCREEN URINE POSITIVE (NEGATIVE); TRICYCLIC ANTIDEPRESSANTS SCRE POSITIVE (NEGATIVE)
[2022-10-06 20:17] LABS: AMPHETAMINE SCREEN, URINE NEGATIVE (NEGATIVE); BARBITURATE SCREEN URINE NEGATIVE (NEGATIVE); BENZODIAZEPINES SCREEN URINE NEGATIVE (NEGATIVE); CANNABINOID SCREEN, URINE NEGATIVE (NEGATIVE); COCAINE SCREEN URINE NEGATIVE (NEGATIVE); METHADONE STAT NEGATIVE (NEGATIVE); OXYCODONE STAT NEGATIVE (NEGATIVE); PROPOXYPHENE STAT NEGATIVE (NEGATIVE)
[2022-10-06] MEDS ORDERED: PROM25TA14 PO (20:52)
[2022-10-06] MEDS ORDERED: SULF1TAB38 PO (20:52)
[2022-10-06 21:36] VITALS: BP 112/56
[2022-10-08] MEDS ORDERED: NITR-65 PO (14:36)
== END 2022-10-06 21:36 | disposition home or self-care (01) ==
LOC: EDUNIT# 18:27 → ER FS 18:29
DX: N30.90 Cystitis, unspecified without hematuria (principal); R19.7 Diarrhea, unspecified; R11.2 Nausea with vomiting, unspecified; R74.01 Elevation of levels of liver transaminase levels; E86.0 Dehydration; E66.9 Obesity, unspecified; Z68.36 Body mass index [BMI] 36.0-36.9, adult; Z91.040 Latex allergy status; Z88.2 Allergy status to sulfonamides; Z28.310 Unvaccinated for COVID-19
CPT/HCPCS: 36415; 80053; 80306; 81000; 83690; 83735; 83880; 84484; 85025; 87088; 93005; 99284; G0480 ×3; 80320; 80329; 87077; 87186

== ENCOUNTER 2022-10-19 07:47 | Outpatient (CLI) | payer MEDICAID ==
[~2022-10-19] VITALS: Ht 165.1 cm; Wt 109.9 kg
[~2022-10-19 07:47] MED LIST changes: +NITR-65 PO; +PROM25TA14 PO; +SULF1TAB38 PO
[2022-10-20] MEDS ORDERED: MIRT-68 PO (10:27)
[2022-10-20] MEDS ORDERED: FLUT1BLS13 IH (10:27)
[2022-10-20] MEDS ORDERED: QUET300T19 PO (10:27)
[2022-10-20] MEDS ORDERED: [UNRECOGNIZED DRUG - CODE] PO (10:27)
[2022-10-20] MEDS ORDERED: CHOL500050 PO (10:27)
[2022-10-20] MEDS ORDERED: QUET100T33 PO (10:27)
[2022-10-20] MEDS ORDERED: FLEC100T PO (10:27)
[2022-10-20] MEDS ORDERED: ZINC50TA11 PO (10:27)
[2022-10-20] MEDS ORDERED: PRAM0.5T2 PO (10:27)
[2022-10-20] MEDS ORDERED: MTP100TCR PO (10:27)
[2022-10-20] MEDS ORDERED: POTA99CA PO (10:27)
[2022-10-20] MEDS ORDERED: ALBU90AE2 PO (10:27)
[2022-10-20] MEDS ORDERED: HYDR-3781 PO (10:27)
[2022-10-20] MEDS ORDERED: ASCO500T16 PO (10:27)
[2022-10-20] MEDS ORDERED: ACHD5005 PO (10:27)
[2022-10-20] MEDS ORDERED: SERT-414 PO (10:27)
[2022-10-20] MEDS ORDERED: FURO20TA4 PO (10:27)
[2022-10-20] MEDS ORDERED: APIX5TAB PO (10:27)
== END 2022-10-20 10:32 | disposition home or self-care (01) ==
LOC: PREOP 07:47
PROVIDERS: ATTEND Surgery
DX: Z01.818 Encounter for other preprocedural examination (principal); R19.5 Other fecal abnormalities

== ENCOUNTER 2022-10-22 07:44 | Emergency (ER) | payer MEDICAID ==
[~2022-10-22] VITALS: Ht 165.1 cm; Wt 111.2 kg
[~2022-10-22 07:44] MED LIST changes: +ALBU90AE2 PO; +ASCO500T16 PO; +CHOL500050 PO; +FLUT1BLS13 IH; +FURO20TA4 PO; +HYDR-3781 PO; +MIRT-68 PO; +POTA99CA PO; +QUET100T33 PO; +QUET300T19 PO; +SERT-414 PO; +ZINC50TA11 PO; +[UNRECOGNIZED DRUG - CODE] PO
[2022-10-22 07:50] VITALS: BP 118/71
--- NOTE | 2022-10-22 07:58 | ED Cardiac General ---
History of Present Illness General Chief Complaint: General Problems/Pain Stated Complaint: WEIGHT GAIN WITH CHF History of Present Illness Date Seen by Provider: October 22, 2022 Time Seen by Provider: 07:56 Initial Comments 62-year-old female with PMH of CHF/A-fib on Eliquis/HTN/obesity, is here with complaints of 5 pound weight gain since yesterday. Patient states that she feels mildly bloated. Patient called her PCP today and was told to come into the ER by her PCP. Denies chest pain, palpitations, shortness of breath, abdominal pain, abdominal distention. Patient does not notice any leg swelling out of the ordinary. Pt is completely asymptomatic. Allergies and Home Medications Allergies Coded Allergies: cephalexin (Verified Allergy, Severe, Has received ceftriaxone in the past w/o issue, 11/29/21) Latex, Natural Rubber (Verified Allergy, Unknown, 10/06/22) Patient Home Medication List Home Medication List Reviewed: Yes Albuterol Sulfate (Proair Digihaler) 90 Mcg Aer.pw.bas, 90 MCG PO Q4H PRN for WHEEZING, (Reported) Entered as Reported by: JESSICA DUTTON on 10/20/22 1027 Apixaban (Eliquis) 5 Mg Tablet, 5 MG PO BID, (Reported) Entered as Reported by: JESSICA DUTTON on 10/20/22 1027 Ascorbic Acid/Ascorbate Sodium (Vitamin C 500 mg Tablet Chew) 500 Mg Tab.chew, 500 MG PO BID, (Reported) Entered as Reported by: JESSICA DUTTON on 10/20/22 1027 Cholecalciferol (Vitamin D3) (Vitamin D3) 125 Mcg (5000 Unit) Capsule, 125 MCG PO BID, (Reported) Entered as Reported by: JESSICA DUTTON on 10/20/22 1027 Flecainide Acetate (Flecainide Acetate) 100 Mg Tablet, 100 MG PO BID, (Reported) Entered as Reported by: JESSICA DUTTON on 10/20/22 1027 Fluticasone Propion/Salmeterol (Fluticasone-Salmeterol 500-50) 500 Mcg-50 Mcg/Dose Blst.w.dev, 1 PUFF IH BID, (Reported) Entered as Reported by: JESSICA DUTTON on 10/20/22 1027 Furosemide (Furosemide) 20 Mg Tablet, 40 MG PO DAILY, (Reported) Entered as Reported by: JESSICA DUTTON on 10/20/22 1027 Hydrocodone/Acetaminophen (Hydrocodone-Acetamin 5-325 mg) 5 Mg-325 Mg Tablet, 1 TAB PO TID PRN for PAIN-MODERATE (5-7), (Reported) Entered as Reported by: JESSICA DUTTON on 10/20/22 1027 Hydroxyzine Pamoate (Hydroxyzine Pamoate) 25 Mg Capsule, 25 MG PO BID PRN for ANXIETY, (Reported) Entered as Reported by: JESSICA DUTTON on 10/20/22 1027 Metoprolol Succinate (Metoprolol Succinate) 100 Mg Tab.er.24h, 100 MG PO DAILY, (Reported) Entered as Reported by: JESSICA DUTTON on 10/20/22 1027 Mirtazapine (Mirtazapine) 15 Mg Tablet, 15 MG PO HS, (Reported) Entered as Reported by: JESSICA DUTTON on 10/20/22 1027 Multivit-Minerals/Folic Acid (Multivitamin Gummies) 200 Mcg Tab.chew, 200 MCG PO DAILY, (Reported) Entered as Reported by: INGRID SLADE on 12/06/21 0946 Potassium Citrate (Potassium) 99 Mg Capsule, 99 MG PO DAILY, (Reported) Entered as Reported by: JESSICA DUTTON on 10/20/22 1027 Pramipexole Di-HCl (Mirapex) 0.5 Mg Tablet, 0.5 MG PO HS, (Reported) Entered as Reported by: JESSICA DUTTON on 10/20/22 1027 Quetiapine Fumarate (Quetiapine Fumarate) 100 Mg Tablet, 100 MG PO 0800,1200, (Reported) Entered as Reported by: JESSICA DUTTON on 10/20/22 1027 Quetiapine Fumarate (Quetiapine Fumarate) 300 Mg Tablet, 600 MG PO HS, (Reported) Entered as Reported by: JESSICA DUTTON on 10/20/22 1027 Saccharomyces Boulardii/Yeast (Saccharomyces Boulardii-Mos Cp) 5 Billion Cell- 200 Mg Capsule.dr, 1 EACH PO DAILY, (Reported) Entered as Reported by: JESSICA DUTTON on 10/20/22 1027 Sertraline HCl (Sertraline HCl) 100 Mg Tablet, 150 MG PO DAILY, (Reported) Entered as Reported by: JESSICA DUTTON on 10/20/22 1027 Zinc Gluconate (Zinc) 50 Mg Tablet, 50 MG PO DAILY, (Reported) Entered as Reported by: JESSICA DUTTON on 10/20/22 1027 Discontinued Medications Amitriptyline HCl (Amitriptyline HCl) 10 Mg Tablet, 10 MG PO DAILY Discontinued Reason: No Longer Taking Prescribed by: BENY WHEELER on 12/20/21 1110 Apixaban (Eliquis) 5 Mg Tablet, 5 MG PO BID Discontinued Reason: No Longer Taking Prescribed by: CONI LEWIS JR, MD on 12/13/21 1111 Ascorbic Acid/Ascorbate Sodium (Vitamin C 250 mg Tablet Chew) 250 Mg Tab.chew, 250 MG PO DAILY, (Reported) Discontinued Reason: Prescription changed Entered as Reported by: INGRID SLADE on 12/06/21 0946 Diazepam (Diazepam) 2 Mg Tablet, 2 MG PO BID PRN for ANXIETY Discontinued Reason: No Longer Taking Prescribed by: BENY WHEELER on 12/20/21 1111 Duloxetine HCl (Duloxetine HCl) 30 Mg Capsule.dr, 30 MG PO DAILY Discontinued Reason: No Longer Taking Prescribed by: BENY WHEELER on 12/20/21 1110 Ferrous Sulfate (Iron) 325 Mg (65 Mg Iron) Tablet, 325 MG PO DAILY, (Reported) Discontinued Reason: No Longer Taking Entered as Reported by: INGRID SLADE on 12/06/21 0947 Flecainide Acetate (Flecainide Acetate) 100 Mg Tablet, 100 MG PO BID Discontinued Reason: No Longer Taking Prescribed by: CONI LEWIS JR, MD on 12/13/21 1111 Fluoxetine HCl (Fluoxetine HCl) 40 Mg Capsule, 40 MG PO DAILY Discontinued Reason: No Longer Taking Prescribed by: BENY WHEELER on 12/20/21 1110 Fluticasone/Salmeterol (Fluticasone-Salmeterol 113-14) 113 Mcg-14 Mcg/Actuation Aer.pow.ba, 0 EACH IH RTBID Discontinued Reason: No Longer Taking Prescribed by: BENY WHEELER on 12/20/21 1110 Gabapentin (Gabapentin) 100 Mg Capsule, 100 MG PO TID Discontinued Reason: No Longer Taking Prescribed by: BENY WHEELER on 12/20/21 1110 Hydrochlorothiazide (Hydrochlorothiazide) 25 Mg Tablet, 25 MG PO DAILY Discontinued Reason: No Longer Taking Prescribed by: BENY WHEELER on 12/20/21 1110 Lactobacillus Acidophilus/Pect (Acidophilus-Pectin Capsule) 75 Million Cell-100 Mg Capsule, 2 EACH PO TIDWM Discontinued Reason: No Longer Taking Prescribed by: BENY WHEELER on 12/20/21 1110 Levofloxacin (Levofloxacin) 750 Mg Tablet, 750 MG PO DAILY Discontinued Reason: No Longer Taking Prescribed by: SARA HAM on 03/12/22 1549 Loperamide HCl (Imodium A-D) 1 Mg/7.5 Ml Liquid, 1 MG PO Q4H PRN for DIARRHEA, (Reported) Discontinued Reason: No Longer Taking Entered as Reported by: INGRID SLADE on 06/28/21 0834 Metoprolol Succinate (Metoprolol Succinate) 50 Mg Tab.er.24h, 100 MG PO DAILY Discontinued Reason: No Longer Taking Prescribed by: CONI LEWIS JR, MD on 12/13/21 1113 Nitrofurantoin Monohyd/M-Cryst (Macrobid 100 mg Capsule) 100 Mg Capsule, 1 TAB PO BID Discontinued Reason: No Longer Taking Prescribed by: COLTEN FRANKLIN on 10/08/22 1436 Oxycodone Hcl (Oxyir Tablet) 5 Mg Tab, 5 MG PO Q6HR PRN for PAIN-SEE DOSE INSTRUCTIONS Discontinued Reason: No Longer Taking Prescribed by: BENY WHEELER on 12/20/21 1111 Pantoprazole Sodium (Pantoprazole Sodium) 40 Mg Tablet.dr, 40 MG PO BID Discontinued Reason: No Longer Taking Prescribed by: BENY WHEELER on 12/20/21 1110 Polymyxin B Sulf/Trimethoprim (Polytrim Eye Drops) 10,000 Unit-1 Mg/Ml Drops, 1 DROP OS QID Discontinued Reason: No Longer Taking Prescribed by: COLTEN FRANKLIN on 03/04/22 1155 Potassium Chloride (Klor-Con 10) 10 Meq Tablet.er, 10 MEQ PO DAILY@0700 Discontinued Reason: No Longer Taking Prescribed by: BENY WHEELER on 12/20/21 1110 Pramipexole Di-HCl (Pramipexole Dihydrochloride) 0.5 Mg Tablet, 0.5 MG PO HS Discontinued Reason: No Longer Taking Prescribed by: BENY WHEELER on 12/20/21 111 Promethazine HCl (Promethazine Tablet) 25 Mg Tablet, 25 MG PO Q6H PRN for NAUSEA/VOMITING Discontinued Reason: No Longer Taking Prescribed by: COLTEN FRANKLIN on 10/06/222051 Quetiapine Fumarate (Quetiapine Fumarate) 400 Mg Tablet, 400 MG PO HS Discontinued Reason: No Longer Taking Prescribed by: BENY WHEELER on 12/20/21 111 Review of Systems Review of Systems Constitutional: see HPI, weight gain EENTM: No Symptoms Reported Respiratory: No Symptoms Reported Gastrointestinal: See HPI Genitourinary: No Symptoms Reported Musculoskeletal: no symptoms reported Skin: no symptoms reported Psychiatric/Neurological: No Symptoms Reported Endocrine: No Symptoms Reported Hematologic/Lymphatic: No Symptoms Reported Past Teqtqha-Ydukhb-Izoqco Hx Immunizations Up To Date Tetanus Booster (TDap): Unknown First/Initial COVID19 Vaccinat: Second COVID19 Vaccination Minor: February 2021 Third COVID19 Vaccination Date: Seasonal Allergies Seasonal Allergies: No Past Medical History Surgery/Hospitalization HX: Alcohol Abuse, Bipolar, HTN, COPD Surgeries: Yes (gastric bypass, esophagus sx) Appendectomy, Section, Gallbladder Respiratory: Yes (hx of lung issues after covid, uses oxygen prn) COPD Cardiac: Yes Atrial Fibrillation, High Cholesterol, Hypertension Neurological: No Genitourinary: No Gastrointestinal: Yes (+cologuard) Gastroesophageal Reflux, Chronic Constipation, Chronic Diarrhea Musculoskeletal: Yes Arthritis Endocrine: No HEENT: No (partial denture) Cancer: No Psychosocial: Yes Anxiety, Bipolar, Depression Integumentary: No Blood Disorders: Yes (hx of anemia) Family Medical History No Pertinent Family Hx Physical Exam Vital Signs Vital Signs - First Documented 10/22/22 07:50 Temp 36.1 Pulse 80 Resp 18 B/P (MAP) 118/71 (87) Pulse Ox 93 O2 Delivery Room Air Capillary Refill : Height, Weight, BMI Height: '" Weight: lbs. oz. kg; 40.31 BMI Method: General Appearance: No Apparent Distress, WD/WN HEENT: PERRL/EOMI Neck: Full Range of Motion Respiratory: Chest Non Tender, Lungs Clear, Normal Breath Sounds, No Accessory Muscle Use Cardiovascular: Regular Rate, Rhythm, No Murmur, Other (1+ pedal edema bilaterally) Gastrointestinal: Normal Bowel Sounds, Non Tender, Soft, Other Extremity: Normal Range of Motion Neurologic/Psychiatric: Alert, Oriented x3, No Motor/Sensory Deficits Skin: Normal Color Progress/Results/Core Measures Results/Orders Vital Signs/I&O 10/22/22 07:50 Temp 36.1 Pulse 80 Resp 18 B/P (MAP) 118/71 (87) Pulse Ox 93 O2 Delivery Room Air Progress Progress Note : Progress Note 1. WEIGHT GAIN/ GAS: - Although patient states that she has gained 5 pounds since yesterday, prior records were reviewed and shown that on October 20, 2022, patient weighed 110 kg, and today in the ER she weighs 111 kg. Patient is completely asymptomatic other than stating that she feels a little bloated and is burping. Vitals are stable.She does not appear to be fluid overloaded clinically, with clear lung sounds, only 1+ pedal edema in ankles only, no abdominal distension, normal JVP. Pt's PCP has already increased her Lasix from 40mg daily to 60 mg daily yesterday. I recommend pt to follow up with her PCP for further CHF management. - Pepcid 20mg oral was given to pt in the ER -The patient was seen in the ED, and treated appropriately to presentation at a specific point in time. Patient is informed that there is a possibility that disease and illness can evolve and change in acuity rapidly or slowly after patient is discharged from the ER. Precautionary advice given to the patient for immediate return to ER if symptoms worsen or do not resolve, and to seek emergency care sooner rather than later. Pt also advised on the importance of PCP follow up and compliance with management and follow up plan with PCP and/or specialist, as this is part of the management plan. Pt verbally expressed understanding. Departure Impression Primary Impression: Increased body weight Additional Impression: Gas bloat syndrome Disposition: 01 HOME, SELF-CARE Condition: Stable Departure-Patient Inst. Referrals: SUNNY FUNEZ MD (PCP/Family) Primary Care Physician Patient Instructions: Gas and Bloating, Heart Healthy Diet, Weight Loss Tips Add. Discharge Instructions: I recommend pt to follow up with her PCP for further CHF management. All discharge instructions reviewed with patient and/or family. Voiced understa nding. BABATUNDE FOSTER MD October 22, 2022 07:58
[2022-10-22] MEDS ORDERED: FAMOTIDINE 20 MG (PEPCID) TABLET PO ONE (08:15)
== END 2022-10-22 08:26 | disposition home or self-care (01) ==
LOC: EDUNIT# 07:44 → ER FS 07:46
DX: R14.0 Abdominal distension (gaseous) (principal); I48.91 Unspecified atrial fibrillation; E66.9 Obesity, unspecified; Z68.41 Body mass index [BMI] 40.0-44.9, adult; Z86.16 Personal history of COVID-19; Z91.040 Latex allergy status; Z79.01 Long term (current) use of anticoagulants
CPT/HCPCS: 99283

== ENCOUNTER 2022-12-21 05:43 | Outpatient (CLI) | payer MEDICAID ==
[~2022-12-21] VITALS: Ht 165 cm; Wt 109.0 kg
== END 2022-12-21 10:04 | disposition home or self-care (01) ==
LOC: PREOP 05:43
PROVIDERS: ATTEND Surgery
DX: Z01.818 Encounter for other preprocedural examination (principal)

== ENCOUNTER 2022-12-26 08:10 | Day surgery (SDC) | payer MEDICAID ==
[~2022-12-26] VITALS: Ht 165 cm; Wt 109.0 kg
[2022-12-26] MEDS ORDERED: LACTATED RINGERS 1,000 ML IV STA (08:12)
[2022-12-26 08:20] VITALS: BP 186/96
[2022-12-26] MEDS ORDERED: PROPOFOL INJECTION 50 ML IV ONE (08:32)
[2022-12-26 09:00] VITALS: BP 109/53
--- NOTE | 2022-12-26 09:03 | Progress Note-Post Operative ---
Post-Operative Progess Note Surgeon (s)/Sports Management Intern (s) Surgeon ERIC NOLEN DO Sports Management Intern: none Pre-Operative Diagnosis +Cologuard Post-Operative Diagnosis Int hemorrhoids Poor prep Procedure & Operative Findings Date of Procedure 12/26/22 Procedure Performed/Findings Colonoscopy PROCEDURE NOTE: After informed consent was obtained, the patient was brought to the endoscopy suite, placed in bed in left lateral decubitus position. She was administered IV sedation by the ALUMINUM POOL INSTALLER who then monitored her vitals the entire time, heart rate, blood pressure and pulse ox and the scope was inserted, pushed all the way to about 150 cm and pushed into the cecum, took a picture of appendiceal orifice and noted the ileocecal valve. Then slowly withdrew the scope insufflating to look circumferentially at the adkins starting in the cecum, up the ascending colon to the hepatic flexure, then down the transverse colon, splenic flexure, into the descending colon down in the sigmoid and then into the rectal vault and retroflexed the scope. Took apicture of the internal hemorrhoids. She had a fair amount of retained ve getable matter, that was too large to suction up; I called this a poor prep. The patient tolerated the procedure. She was recovered in endoscopy suite. Recommended for repeat colonoscopy in 5 years, because of the poor prep. Anesthesia Type IV sedation by ALUMINUM POOL INSTALLER Estimated Blood Loss Estimated blood loss (mL): none Specimens/Packing Specimens Removed none ERIC NOLEN DO Dec 26, 2022 09:03
[2022-12-26 09:05] VITALS: BP 119/58
--- NOTE | 2022-12-26 09:05 | Endoscopy Discharge Instruct ---
Endo Procedure/Findings Findings 1.: Internal Hemorrhoids 2.: Other Findings (poor prep) Discharge Instructions - Activity: You might feel a little sleepy until tomorrow. This is due to the medicine you received to relax you. Until tomorrow, you should: NOT drive a car, operate machinery or power tools. NOT drink any alcoholic beverages. NOT make any important decisions or sign importortant papers. Do not return to work until tomorrow, unless otherwise instructed. Resume previous activities tomorrow. Diet: Start by taking liquids. If you tolerate liquids, advance to solid food. 1.: Colonscopy in 5 years Notify Physician - If you experience excessive bleeding, unusual abdominal pain, fever, or chest p ain, contact your doctor immediately. Follow-Up: Other Follow up in my office in one week ERIC NOLEN DO Dec 26, 2022 09:05
[2022-12-26 09:10] VITALS: BP_SYST 119; BP_SYST 120; BP_DIAS 58; BP_DIAS 62
--- NOTE | 2022-12-26 11:52 | Anesthesia-General Post-Op ---
MAC Patient Condition Mental Status/LOC: Same as Preop Cardiovascular: Satisfactory Nausea/Vomiting: Absent Respiratory: Satisfactory Pain: Controlled Complications: Absent Post Op Complications Complications None Follow Up Care/Instructions Patient Instructions None needed. Anesthesiology Discharge Order Discharge Order Patient is doing well, no complaints, stable vital signs, no apparent adverse anesthesia problems. No complications reported per nursing. EVANGELINA SANTIAGO CRNA Dec 26, 2022 11:52
== END 2022-12-26 09:35 | disposition home or self-care (01) ==
LOC: ENDO 08:10
PROVIDERS: ATTEND Surgery
DX: Z12.11 Encounter for screening for malignant neoplasm of colon (principal); K64.8 Other hemorrhoids; R19.5 Other fecal abnormalities; J44.9 Chronic obstructive pulmonary disease, unspecified; E66.9 Obesity, unspecified; Z68.41 Body mass index [BMI] 40.0-44.9, adult

== ENCOUNTER 2023-01-03 23:58 | Emergency (ER) | payer MEDICAID ==
[~2023-01-03] VITALS: Ht 165.1 cm; Wt 104.5 kg
[2023-01-04] MEDS ORDERED: fentaNYL INJ 100 MCG/2 ML AMP IVP ONE (00:15)
[2023-01-04] MEDS ORDERED: ONDANSETRON 4 MG/2 ML (SDV) Z0FRAN IVP ONE (00:15)
[2023-01-04 00:30] LABS: HEMATOCRIT 37 % (35-52); HEMOGLOBIN 12.2 g/dL (11.5-16.0); MEAN CORPUSCULAR HEMOGLOBIN 31 pg (25-34); MEAN CORPUSCULAR HGB CONC 33 g/dL (32-36); MEAN CORPUSCULAR VOLUME 93 fL (80-99); MEAN PLATELET VOLUME 10.7 fL (9.0-12.2); PLATELET COUNT 218 10^3/uL (130-400); WHITE BLOOD COUNT 8.2 10^3/uL (4.3-11.0)
[2023-01-04 00:31] LABS: BASOPHILS % (AUTO) 0 % (0-10); EOSINOPHILS # (AUTO) 0.2 10^3/uL (0.0-0.3); EOSINOPHILS % (AUTO) 2 % (0-10); LYMPHOCYTES # (AUTO) 3.5 X 10^3 (1.0-4.0); LYMPHOCYTES % (AUTO) 42 % (12-44); MONOCYTES # (AUTO) 0.7 X 10^3 (0.0-1.0); MONOCYTES % (AUTO) 9 % (0-12); NEUTROPHILS # (AUTO) 3.8 X 10^3 (1.8-7.8); NEUTROPHILS % (AUTO) 47 % (42-75)
[2023-01-04 00:51] LABS: BUN/CREATININE RATIO 33; CALCIUM 9.6 MG/DL (8.5-10.1); CARBON DIOXIDE 23 MMOL/L (21-32); CHLORIDE 100 MMOL/L (98-107); CREATININE SERUM 1.09 MG/DL (0.60-1.30); GFR ESTIMATED 57; GLUCOSE 133 MG/DL (70-105); MAGNESIUM 2.2 MG/DL (1.6-2.4); POTASSIUM 3.9 MMOL/L (3.6-5.0); SODIUM 139 MMOL/L (135-145)
[2023-01-04 00:52] LABS: ALANINE AMINOTRANSFERASE 17 U/L (0-55); ALBUMIN 4.4 GM/DL (3.2-4.5); ALKALINE PHOSPHATASE 94 U/L (40-136); BILIRUBIN,TOTAL 0.2 MG/DL (0.1-1.0)
[2023-01-04] MEDS ORDERED: PROMETHAZINE INJ 25 MG/ML (PHENERGAN) AMP IVP ONE (01:00)
[2023-01-04] MEDS ORDERED: LACTATED RINGERS 1,000 ML IV ONE (01:00)
--- NOTE | 2023-01-04 01:03 | ED General ---
General Chief Complaint: Head/Cervical Problems Nursing Triage Note: Patient arrival per [facility] BLS for CC: headache x 1 week. Pt reports having sharp pains in head for 1 week. Pt is on Hydrocodone for chronic back pain and states the pill doen't help headache. Pt reports some dizziness also. Source of Information: Patient, EMS, Old Records Exam Limitations: No Limitations History of Present Illness Date Seen by Provider: Jan 03, 2023 Time Seen by Provider: 23:58 Initial Comments This 62-year-old woman presents to the emergency room via [facility] with complaints of acute headache for the past week. Tonight she woke up shaking and was concerned that she was having a seizure. She has been nauseated and vomited yesterday secondary to headache. She reports waking about 10 minutes before calling EMS. She feels weak in the legs and complains of disequilibrium. She reports having a dysphoric sensation with ambulation. Her headache is of a stabbing nature and seems different than her migraines. She has a past history of migraines but denies having a significant headache within the last 5 years. EMS reports that she walked to the ambulance on her own power without any apparent difficulty before they could even get the cot out of the ambulance. Patient takes hydrocodone for pain and took her last dose around 1900. She has atrial fibrillation and takes Eliquis. Her last dose was this evening around 2100. Dr. Storm is her physician at [facility]. Allergies and Home Medications Allergies Coded Allergies: cephalexin (Verified Allergy, Severe, Has received ceftriaxone in the past w/o issue, 11/29/21) Latex, Natural Rubber (Verified Allergy, Unknown, 10/06/22) zolpidem (Verified Adverse Reaction, Unknown, SLEEP WALKING, 12/26/22) Patient Home Medication List Home Medication List Reviewed: Yes Albuterol Sulfate (Proair Digihaler) 90 Mcg Aer.pw.bas, 90 MCG PO Q4H PRN for WHEEZING, (Reported) Entered as Reported by: JESSICA DUTTON on 10/20/22 1027 Apixaban (Eliquis) 5 Mg Tablet, 5 MG PO BID, (Reported) Entered as Reported by: JESSICA DUTTON on 10/20/22 1027 Ascorbic Acid/Ascorbate Sodium (Vitamin C 500 mg Tablet Chew) 500 Mg Tab.chew, 500 MG PO BID, (Reported) Entered as Reported by: JESSICA DUTTON on 10/20/22 1027 Cholecalciferol (Vitamin D3) (Vitamin D3) 125 Mcg (5000 Unit) Capsule, 125 MCG PO BID, (Reported) Entered as Reported by: JESSICA DUTTON on 10/20/22 1027 Flecainide Acetate (Flecainide Acetate) 100 Mg Tablet, 100 MG PO BID, (Reported) Entered as Reported by: JESSICA DUTTON on 10/20/22 1027 Fluticasone Propion/Salmeterol (Fluticasone-Salmeterol 500-50) 500 Mcg-50 Mcg/Dose Blst.w.dev, 1 PUFF IH BID, (Reported) Entered as Reported by: JESSICA DUTTON on 10/20/22 102 Furosemide (Furosemide) 20 Mg Tablet, 40 MG PO DAILY, (Reported) Entered as Reported by: JESSICA DUTTON on 10/20/22 1027 Hydrocodone/Acetaminophen (Hydrocodone-Acetamin 5-325 mg) 5 Mg-325 Mg Tablet, 1 TAB PO TID PRN for PAIN-MODERATE (5-7), (Reported) Entered as Reported by: JESSICA DUTTON on 10/20/22 102 Hydroxyzine Pamoate (Hydroxyzine Pamoate) 25 Mg Capsule, 25 MG PO BID PRN for ANXIETY, (Reported) Entered as Reported by: JESSICA DUTTON on 10/20/22 1027 Metoprolol Succinate (Metoprolol Succinate) 100 Mg Tab.er.24h, 100 MG PO DAILY, (Reported) Entered as Reported by: JESSICA DUTTON on 10/20/22 1027 Mirtazapine (Mirtazapine) 15 Mg Tablet, 15 MG PO HS, (Reported) Entered as Reported by: JESSICA DUTTON on 10/20/22 1027 Multivit-Minerals/Folic Acid (Multivitamin Gummies) 200 Mcg Tab.chew, 200 MCG PO DAILY, (Reported) Entered as Reported by: INGRID SLADE on 12/06/21 0946 Ondansetron (Ondansetron Odt) 4 Mg Tab.rapdis, 4 MG SL Q4H PRN for NAUSEA/VOMITING Prescribed by: CIARA SIMEON on 01/04/23 0155 Potassium Citrate (Potassium) 99 Mg Capsule, 99 MG PO DAILY, (Reported) Entered as Reported by: JESSICA DUTTON on 10/20/22 1027 Pramipexole Di-HCl (Mirapex) 0.5 Mg Tablet, 0.5 MG PO HS, (Reported) Entered as Reported by: JESSICA DUTTON on 10/20/22 1027 Quetiapine Fumarate (Quetiapine Fumarate) 100 Mg Tablet, 100 MG PO 0800,1200, (Reported) Entered as Reported by: JESSICA DUTTON on 10/20/22 1027 Quetiapine Fumarate (Quetiapine Fumarate) 300 Mg Tablet, 600 MG PO HS, (Reported) Entered as Reported by: JESSICA DUTTON on 10/20/22 1027 Saccharomyces Boulardii/Yeast (Saccharomyces Boulardii-Mos Cp) 5 Billion Cell- 200 Mg Capsule.dr, 1 EACH PO DAILY, (Reported) Entered as Reported by: JESSICA DUTTON on 10/20/22 1027 Sertraline HCl (Sertraline HCl) 100 Mg Tablet, 150 MG PO DAILY, (Reported) Entered as Reported by: JESSICA DUTTON on 10/20/22 1027 Zinc Gluconate (Zinc) 50 Mg Tablet, 50 MG PO DAILY, (Reported) Entered as Reported by: JESSICA DUTTON on 10/20/22 1027 Review of Systems Review of Systems Constitutional: no symptoms reported EENTM: see HPI Respiratory: no symptoms reported Cardiovascular: see HPI Gastrointestinal: see HPI Genitourinary: no symptoms reported Musculoskeletal: no symptoms reported Skin: no symptoms reported Psychiatric/Neurological: See HPI Hematologic/Lymphatic: See HPI Immunological/Allergic: no symptoms reported Past Bdakdth-Wpdbot-Nrmqnz Hx Patient Social History Tobacco Use?: No Smoking Status: Unknown if Ever Smoked Use of E-Cig and/or Vaping dev: No Use of E-Cig and/or Vaping Rafa: Unknown if Ever Used Substance use?: No Alcohol Use?: No (Prior frequent alcohol use until July 2022) Pt feels they are or have been: No Immunizations Up To Date Tetanus Booster (TDap): Unknown First/Initial COVID19 Vaccinat: Second COVID19 Vaccination Minor: Third COVID19 Vaccination Date: COVID19 Vaccine 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 Seasonal Allergies Seasonal Allergies: No Past Medical History Surgery/Hospitalization HX: Alcohol Abuse Hx, Bipolar, HTN, COPD, ANIYA, SI Hx, Cardiomyopathy, Hyperlipidemia, A Fib, Cholecystectomy, Appendectomy, Hysterectomy, Colonoscopy Surgeries: Yes (gastric bypass, esophagus sx, salpingectomy) Appendectomy, Section, Gallbladder Respiratory: Yes (hx of lung issues after covid, uses oxygen prn) COPD (Uses oxygen up to 3 L/min intermittently since COVID-19 infection) Cardiac: Yes Atrial Fibrillation, High Cholesterol, Hypertension Neurological: Yes Headaches /Migraines Reproductive Disorders: No Genitourinary: No Gastrointestinal: Yes (+cologuard) Gastroesophageal Reflux, Chronic Constipation, Chronic Diarrhea Musculoskeletal: Yes Arthritis, Chronic Back Pain Endocrine: No HEENT: No (partial denture) Cancer: No Psychosocial: Yes Anxiety, Bipolar, Depression Integumentary: No Blood Disorders: Yes (hx of anemia) Family Medical History No Pertinent Family Hx Physical Exam Vital Signs Vital Signs - First Documented 01/03/23 01/04/23 23:58 00:45 Temp 36.5 Pulse 86 Resp 18 B/P (MAP) 153/70 (97) Pulse Ox 93 O2 Delivery Room Air O2 Flow Rate 2.00 Capillary Refill : Less Than 3 Seconds Height, Weight, BMI Height: '" Weight: lbs. oz. 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 Normal gait.) Skin: Normal Color, Warm/Dry Progress/Results/Core Measures Suspected Sepsis SIRS Temperature: Pulse: 86 Respiratory Rate: 18 Laboratory Tests 01/04/23 00:15: White Blood Count 8.2 Blood Pressure 153 /70 Mean: 97 Laboratory Tests 01/04/23 00:15: Creatinine 1.09, Platelet Count 218, Total Bilirubin 0.2 Results/Orders Lab Results Laboratory Tests Test 01/04/23 00:15 Range/Units White Blood Count 8.2 4.3-11.0 10^3/uL Red Blood Count 3.97 3.80-5.11 10^6/uL Hemoglobin 12.2 11.5-16.0 g/dL Hematocrit 37 35-52 % Mean Corpuscular Volume 93 80-99 fL Mean Corpuscular Hemoglobin 31 25-34 pg Mean Corpuscular Hemoglobin Concent 33 32-36 g/dL Red Cell Distribution Width 13.8 10.0-14.5 % Platelet Count 218 130-400 10^3/uL Mean Platelet Volume 10.7 9.0-12.2 fL Immature Granulocyte % (Auto) 0 % Neutrophils (%) (Auto) 47 42-75 % Lymphocytes (%) (Auto) 42 12-44 % Monocytes (%) (Auto) 9 0-12 % Eosinophils (%) (Auto) 2 0-10 % Basophils (%) (Auto) 0 0-10 % Neutrophils # (Auto) 3.8 1.8-7.8 X 10^3 Lymphocytes # (Auto) 3.5 1.0-4.0 X 10^3 Monocytes # (Auto) 0.7 0.0-1.0 X 10^3 Eosinophils # (Auto) 0.2 0.0-0.3 10^3/uL Basophils # (Auto) 0.0 0.0-0.1 10^3/uL Immature Granulocyte # (Auto) 0.0 0.0-0.1 10^3/uL Sodium Level 139 135-145 MMOL/L Potassium Level 3.9 3.6-5.0 MMOL/L Chloride Level 100 98-107 MMOL/L Carbon Dioxide Level 23 21-32 MMOL/L Anion Gap 16 H 5-14 MMOL/L Blood Urea Nitrogen 36 H 7-18 MG/DL Creatinine 1.09 0.60-1.30 MG/DL Estimat Glomerular Filtration Rate 57 BUN/Creatinine Ratio 33 Glucose Level 133 H 70-105 MG/DL Calcium Level 9.6 8.5-10.1 MG/DL Corrected Calcium 9.3 8.5-10.1 MG/DL Magnesium Level 2.2 1.6-2.4 MG/DL Total Bilirubin 0.2 0.1-1.0 MG/DL Aspartate Amino Transf (AST/SGOT) 17 5-34 U/L Alanine Aminotransferase (ALT/SGPT) 17 0-55 U/L Alkaline Phosphatase 94 40-136 U/L Total Protein 7.0 6.4-8.2 GM/DL Albumin 4.4 3.2-4.5 GM/DL Serum Alcohol < 10 <10 MG/DL My Orders Orders - CIARA ANDREA MD Ct Head Wo-R/O Stroke (01/04/23 00:12) Alcohol (01/04/23 00:12) Cbc With Automated Diff (01/04/23 00:12) Comprehensive Metabolic Panel (01/04/23 00:12) Magnesium (01/04/23 00:12) Ed Iv/Invasive Line Start (01/04/23 00:12) Monitor-Rhythm Ecg Trace Only (01/04/23 00:12) Fentanyl Inj (Sublimaze Injection) (01/04/23 00:15) Ondansetron Injection (Zofran Injectio (01/04/23 00:15) Promethazine Injection (Phenergan Injec (01/04/23 01:00) Dexamethasone Injection (Decadron Inje (01/04/23 01:00) Lactated Ringers (Lr 1000 Ml Iv Solution (01/04/23 01:00) Medications Given in ED Current Medications Medications Dose Ordered Sig/Gallito Route Start Time Stop Time Status Last Admin Dose Admin Dexamethasone Sodium Phosphate 4 mg ONCE ONCE IV 01/04/23 01:00 01/04/23 01:01 DC 01/04/23 01:02 4 MG Fentanyl Citrate 50 mcg ONCE ONCE IVP 01/04/23 00:15 01/04/23 00:18 DC 01/04/23 00:35 50 MCG Lactated Ringer's 1,000 ml @ 0 mls/hr Q0M ONCE IV 01/04/23 01:00 01/04/23 01:01 DC 01/04/23 01:02 999 MLS/HR Ondansetron HCl 8 mg ONCE ONCE IVP 01/04/23 00:15 01/04/23 00:18 DC 01/04/23 00:35 8 MG Promethazine HCl 12.5 mg ONCE ONCE IVP 01/04/23 01:00 01/04/23 01:01 DC 01/04/23 01:02 12.5 MG Vital Signs/I&O 01/03/23 01/04/23 01/04/23 01/04/23 23:58 00:35 00:45 02:10 Temp 36.5 36.5 36.3 Pulse 86 79 Resp 18 17 B/P (MAP) 153/70 (97) 120/66 Pulse Ox 93 87 95 O2 Delivery Room Air Nasal Cannula Room Air O2 Flow Rate 2.00 Capillary Refill : Less Than 3 Seconds Blood Pressure Mean: 97 Progress Note #1: Time: 00:59 Progress Note Patient was interviewed and examined upon arrival to the room at 2358. Report was received from EMS. History, exam, and orders were placed by around 0015. Labs and CT of the head were obtained. There was concern about the nature of her headache in the context of anticoagulation. Subacute intracranial hemorrhage was ruled out with CT. CT head was reviewed by me and I appreciated no masses or intracranial hemorrhages by my interpretation. Stat rad report was also reviewed. Pain was treated with fentanyl and nausea was treated with Zofran. She had reasonable improvement in her symptoms with these therapies. Residual symptoms will be treated with dexamethasone 4 mg IV, Phenergan 12.5 mg, and a liter of LR. NSAIDs are being avoided due to the Eliquis use. Labs were reviewed and interpreted by me. CBC was unremarkable. CMP was relatively unremarkable except for elevated BUN which may suggest some hypovolemia which is being treated with IV fluids. Magnesium was unremarkable. Patient was found to have no focal neurologic deficits on exam. We will monitor her response to further treatment and ensure she can ambulate safely. Oxygen saturations were running in the 88-92 range on room air. Patient informed us that she has been using oxygen intermittently at home up to 3 L/min by nasal cannula since having COVID-19. Progress Note #2: Time: 01:07 Progress Note Patient was updated with her results and plan of care. She is agreeable to IV fluids, Phenergan, and dexamethasone. She demonstrated ability to walk about the exam room independently and safely. She denied dizziness or disequilibrium with the ambulation. Patient has been observed on telemetry. She has remained in sinus rhythm by my interpretation of clinical research monitor. ECG Initial ECG Rhythm: Normal Sinus (By my interpretation of telemetry) Diagnostic Imaging Diagonstic Imaging: CT Plain Films/CT/US/NM/MRI: head Comments CT head reviewed by me. There were no acute abnormalities per my interpretation. Specifically I appreciated no intracranial hemorrhages or masses. Stat rad report concurred with this interpretation. Departure Impression Primary Impression: Acute headache Qualified Codes: R51.9 - Headache, unspecified Additional Impression: Disequilibrium Disposition: HOME, SELF-CARE Condition: Improved Departure-Patient Inst. Decision time for Depature: 01:53 Referrals: SUNNY STORM MD (PCP/Family) Primary Care Physician Patient Instructions: Headache, Adult ED Add. Discharge Instructions: Drink plenty of clear liquids to stay well-hydrated. Use Zofran (ondansetron) as prescribed for nausea and vomiting. Please contact your psychiatrist office tomorrow to discuss your Seroquel dosing. You may need to decrease your dose since symptoms seem to have worsened around the time you increased her Seroquel dose. Use Tylenol (acetaminophen) up to 1000 mg every 6 hours as needed for headache or pain. Follow-up with your primary care provider soon as possible. Return to the ER if you have worsening symptoms despite following these instructions. All discharge instructions reviewed with patient and/or family. Voiced u nderstanding. Scripts Ondansetron (Ondansetron Odt) 4 Mg Tab.rapdis 4 MG SL Q4H PRN for NAUSEA/VOMITING, #10 TAB Prov: CIARA ANDREA MD 01/04/23 Copy Copies To 1: [facility]CIARA HOUSTON MD Jan 04, 2023 01:03
[2023-01-04] MEDS ORDERED: ONDA4TAB11 SL (01:55)
[2023-01-04 02:10] VITALS: BP 120/66
--- NOTE | 2023-01-04 06:25 | Diagnostic Imaging Report ---
INDICATION: Severe headache and disequilibrium. TECHNIQUE: Multiple contiguous axial images were obtained through the brain without the use of intravenous contrast. Auto Exposure Controls were utilized during the CT exam to meet ALARA standards for radiation dose reduction. There is no prior study for comparison. There were no extra-axial fluid collections. No intracranial hemorrhage. No intracranial mass or mass effect. No midline shift. The ventricles are normal in size and position. There were no focal parenchymal abnormalities in the brain. Calvarial windows are unremarkable. IMPRESSION: Negative noncontrast brain CT. Dictated by: Dictated on workstation # [id number]
== END 2023-01-04 02:10 | disposition home or self-care (01) ==
LOC: EDUNIT# 23:58 → ER FS 23:59
DX: R05.9 Cough, unspecified (principal)
CPT/HCPCS: 36415; 70450; 80053; 83735; 85025; 93041; 99284; G0480; 80320

== ENCOUNTER 2023-04-27 21:50 | Emergency (ER) | payer MEDICAID ==
[~2023-04-27] VITALS: Ht 165 cm; Wt 108.8 kg
[~2023-04-27 21:50] MED LIST changes: +ONDA4TAB11 SL
--- NOTE | 2023-04-27 22:05 | ED Respiratory ---
General Chief Complaint: Respiratory Problems Stated Complaint: SOB History of Present Illness Date Seen by Provider: Apr 27, 2023 Time Seen by Provider: 22:00 Initial Comments 62-year-old female with PMH of COPD/long-haul COVID, is brought in by EMS with complaints of shortness of breath. Patient states that she is always short of breath for the past 1-1/2 years after having COVID. Patient has had to be on 3 L of oxygen since then. Patient states that in addition she has developed a cough and increasing shortness of breath for the past couple of days, along with congestion. Patient reports seeing a news department intern and her PCP 1 week ago and states that a lot of her inhalers were stopped. Denies fever and chills, chest pain, abdominal pain, diarrhea. Allergies and Home Medications Allergies Coded Allergies: cephalexin (Verified Allergy, Severe, Has received ceftriaxone in the past w/o issue, 11/29/21) Latex, Natural Rubber (Verified Allergy, Unknown, 10/06/22) zolpidem (Verified Adverse Reaction, Unknown, SLEEP WALKING, 12/26/22) Patient Home Medication List Home Medication List Reviewed: Yes Albuterol Sulfate (Proair Digihaler) 90 Mcg Aer.pw.bas, 90 MCG PO Q4H PRN for WHEEZING, (Reported) Entered as Reported by: JESSICA DUTTON on 10/20/22 1027 Apixaban (Eliquis) 5 Mg Tablet, 5 MG PO BID, (Reported) Entered as Reported by: JESSICA DUTTON on 10/20/22 1027 Ascorbic Acid/Ascorbate Sodium (Vitamin C 500 mg Tablet Chew) 500 Mg Tab.chew, 500 MG PO BID, (Reported) Entered as Reported by: JESSICA DUTTON on 10/20/22 1027 Cholecalciferol (Vitamin D3) (Vitamin D3) 125 Mcg (5000 Unit) Capsule, 125 MCG PO BID, (Reported) Entered as Reported by: JESSICA DUTTON on 10/20/22 1027 Flecainide Acetate (Flecainide Acetate) 100 Mg Tablet, 100 MG PO BID, (Reported) Entered as Reported by: JESSICA DUTTON on 10/20/22 1027 Fluticasone Propion/Salmeterol (Fluticasone-Salmeterol 500-50) 500 Mcg-50 Mcg/Dose Blst.w.dev, 1 PUFF IH BID, (Reported) Entered as Reported by: JESSICA DUTTON on 10/20/22 1027 Furosemide (Furosemide) 20 Mg Tablet, 40 MG PO DAILY, (Reported) Entered as Reported by: JESSICA DUTTON on 10/20/22 1027 Hydrocodone/Acetaminophen (Hydrocodone-Acetamin 5-325 mg) 5 Mg-325 Mg Tablet, 1 TAB PO TID PRN for PAIN-MODERATE (5-7), (Reported) Entered as Reported by: JESSICA DUTTON on 10/20/22 1027 Hydroxyzine Pamoate (Hydroxyzine Pamoate) 25 Mg Capsule, 25 MG PO BID PRN for ANXIETY, (Reported) Entered as Reported by: JESSICA DUTTON on 10/20/22 1027 Metoprolol Succinate (Metoprolol Succinate) 100 Mg Tab.er.24h, 100 MG PO DAILY, (Reported) Entered as Reported by: JESSICA DUTTON on 10/20/22 1027 Mirtazapine (Mirtazapine) 15 Mg Tablet, 15 MG PO HS, (Reported) Entered as Reported by: JESSICA DUTTON on 10/20/22 1027 Multivit-Minerals/Folic Acid (Multivitamin Gummies) 200 Mcg Tab.chew, 200 MCG PO DAILY, (Reported) Entered as Reported by: INGRID SLADE on 12/06/21 0946 Ondansetron (Ondansetron Odt) 4 Mg Tab.rapdis, 4 MG SL Q4H PRN for NAUSEA/VOMITING Prescribed by: CIARA SIMEON on 01/04/23 0155 Potassium Citrate (Potassium) 99 Mg Capsule, 99 MG PO DAILY, (Reported) Entered as Reported by: JESSICA DUTTON on 10/20/22 1027 Pramipexole Di-HCl (Mirapex) 0.5 Mg Tablet, 0.5 MG PO HS, (Reported) Entered as Reported by: JESSICA DUTTON on 10/20/22 1027 Quetiapine Fumarate (Quetiapine Fumarate) 100 Mg Tablet, 100 MG PO 0800,1200, (Reported) Entered as Reported by: JESSICA DUTTON on 10/20/22 1027 Quetiapine Fumarate (Quetiapine Fumarate) 300 Mg Tablet, 600 MG PO HS, (Reported) Entered as Reported by: JESSICA DUTTON on 10/20/22 1027 Saccharomyces Boulardii/Yeast (Saccharomyces Boulardii-Mos Cp) 5 Billion Cell- 200 Mg Capsule.dr, 1 EACH PO DAILY, (Reported) Entered as Reported by: JESSICA DUTTON on 10/20/22 1027 Sertraline HCl (Sertraline HCl) 100 Mg Tablet, 150 MG PO DAILY, (Reported) Entered as Reported by: JESSICA DUTTON on 10/20/22 1027 Zinc Gluconate (Zinc) 50 Mg Tablet, 50 MG PO DAILY, (Reported) Entered as Reported by: JESSICA DUTTON on 10/20/22 1027 Review of Systems Review of Systems Constitutional: no symptoms reported EENTM: no symptoms reported Respiratory: short of breath, wheezing Cardiovascular: no symptoms reported Gastrointestinal: no symptoms reported Genitourinary: no symptoms reported Musculoskeletal: no symptoms reported Skin: no symptoms reported Psychiatric/Neurological: No Symptoms Reported Past Nmnkeod-Mgodpf-Syugli Hx Immunizations Up To Date Tetanus Booster (TDap): Unknown First/Initial COVID19 Vaccinat: Second COVID19 Vaccination Minor: Third COVID19 Vaccination Date: Seasonal Allergies Seasonal Allergies: No Past Medical History Surgery/Hospitalization HX: Alcohol Abuse Hx, Bipolar, HTN, COPD, ANIYA, SI Hx, Cardiomyopathy, Hyperlipidemia, A Fib, Cholecystectomy, Appendectomy, Hysterectomy, Colonoscopy Surgeries: Yes (gastric bypass, esophagus sx, salpingectomy) Appendectomy, Section, Gallbladder Respiratory: Yes (hx of lung issues after covid, uses oxygen prn) COPD Cardiac: Yes Atrial Fibrillation, High Cholesterol, Hypertension Neurological: Yes Headaches /Migraines Reproductive Disorders: No Genitourinary: No Gastrointestinal: Yes (+cologuard) Gastroesophageal Reflux, Chronic Constipation, Chronic Diarrhea Musculoskeletal: Yes Arthritis, Chronic Back Pain Endocrine: No HEENT: No (partial denture) Cancer: No Psychosocial: Yes Anxiety, Bipolar, Depression Integumentary: No Blood Disorders: Yes (hx of anemia) Family Medical History No Pertinent Family Hx Physical Exam Vital Signs - First Documented 04/27/23 04/27/23 21:50 22:03 Temp 36.1 Pulse 88 Resp 24 B/P (MAP) 126/57 (80) Pulse Ox 95 O2 Delivery Nasal Cannula O2 Flow Rate 3.00 Capillary Refill : Height: '" Weight: lbs. oz. kg; 38.00 BMI Method: General Appearance: WD/WN, no apparent distress, obese HEENT: normal ENT inspection Neck: non-tender, full range of motion, supple Respiratory: chest non-tender, rhonchi, wheezing, expiration Cardiovascular: normal peripheral pulses, no edema Gastrointestinal: non tender, soft Extremities: normal range of motion, no pedal edema Neurologic/Psychiatric: alert, normal mood/affect, oriented x 3 Skin: normal color Progress/Results/Core Measures Suspected Sepsis SIRS Temperature: Pulse: Respiratory Rate: Laboratory Tests 04/27/23 21:50: White Blood Count 6.8 Blood Pressure / Mean: Laboratory Tests 04/27/23 21:50: Creatinine 0.96, INR Comment 1.0, Platelet Count 240, Total Bilirubin 0.3 Results/Orders Lab Results Laboratory Tests Test 04/27/23 21:50 04/27/23 22:45 Range/Units White Blood Count 6.8 4.3-11.0 10^3/uL Red Blood Count 3.75 L 3.80-5.11 10^6/uL Hemoglobin 10.8 L 11.5-16.0 g/dL Hematocrit 35 35-52 % Mean Corpuscular Volume 93 80-99 fL Mean Corpuscular Hemoglobin 29 25-34 pg Mean Corpuscular Hemoglobin Concent 31 L 32-36 g/dL Red Cell Distribution Width 14.6 H 10.0-14.5 % Platelet Count 240 130-400 10^3/uL Mean Platelet Volume 10.5 9.0-12.2 fL Immature Granulocyte % (Auto) 0 % Neutrophils (%) (Auto) 52 42-75 % Lymphocytes (%) (Auto) 39 12-44 % Monocytes (%) (Auto) 6 0-12 % Eosinophils (%) (Auto) 3 0-10 % Basophils (%) (Auto) 0 0-10 % Neutrophils # (Auto) 3.5 1.8-7.8 10^3/uL Lymphocytes # (Auto) 2.6 1.0-4.0 10^3/uL Monocytes # (Auto) 0.4 0.0-1.0 10^3/uL Eosinophils # (Auto) 0.2 0.0-0.3 10^3/uL Basophils # (Auto) 0.0 0.0-0.1 10^3/uL Immature Granulocyte # (Auto) 0.0 0.0-0.1 10^3/uL Percent Immature Platelet Fraction 4.1 0.0-7.6 % Prothrombin Time 13.5 12.2-14.7 SEC INR Comment 1.0 0.8-1.4 Activated Partial Thromboplast Time 27 24-35 SEC D-Dimer 0.51 H 0.00-0.49 UG/ML Sodium Level 140 135-145 MMOL/L Potassium Level 4.1 3.6-5.0 MMOL/L Chloride Level 103 98-107 MMOL/L Carbon Dioxide Level 24 21-32 MMOL/L Anion Gap 13 5-14 MMOL/L Blood Urea Nitrogen 26 H 7-18 MG/DL Creatinine 0.96 0.60-1.30 MG/DL Estimat Glomerular Filtration Rate 66 BUN/Creatinine Ratio 27 Glucose Level 150 H 70-105 MG/DL Calcium Level 9.2 8.5-10.1 MG/DL Corrected Calcium 9.1 8.5-10.1 MG/DL Magnesium Level 2.0 1.6-2.4 MG/DL Total Bilirubin 0.3 0.1-1.0 MG/DL Aspartate Amino Transf (AST/SGOT) 20 5-34 U/L Alanine Aminotransferase (ALT/SGPT) 15 0-55 U/L Alkaline Phosphatase 99 40-136 U/L Troponin I < 0.30 <0.30 NG/ML Pro-B-Type Natriuretic Peptide 890.7 H <125.0 PG/ML Total Protein 7.1 6.4-8.2 GM/DL Albumin 4.1 3.2-4.5 GM/DL Influenza Type A (RT-PCR) Not Detected Not Detecte Influenza Type B (RT-PCR) Not Detected Not Detecte SARS-CoV-2 RNA (RT-PCR) Not Detected Not Detecte Urine Color YELLOW Urine Clarity SL CLOUDY Urine pH 6.0 5-9 Urine Specific Arlee 1.020 1.016-1.022 Urine Protein NEGATIVE NEGATIVE Urine Glucose (UA) NEGATIVE NEGATIVE Urine Ketones NEGATIVE NEGATIVE Urine Nitrite NEGATIVE NEGATIVE Urine Bilirubin NEGATIVE NEGATIVE Urine Urobilinogen 0.2 < = 1.0 MG/DL Urine Leukocyte Esterase NEGATIVE NEGATIVE Urine RBC (Auto) NEGATIVE NEGATIVE Urine RBC NONE /HPF Urine WBC 5-10 H /HPF Urine Squamous Epithelial Cells RARE /HPF Urine Crystals NONE /LPF Urine Bacteria MODERATE H /HPF Urine Casts NONE /LPF Urine Mucus NEGATIVE /LPF Urine Culture Indicated YES Urine Opiates Screen POSITIVE H NEGATIVE Urine Oxycodone Screen NEGATIVE NEGATIVE Urine Methadone Screen NEGATIVE NEGATIVE Urine Barbiturates Screen NEGATIVE NEGATIVE Ur Tricyclic Antidepressants Screen POSITIVE H NEGATIVE Urine Phencyclidine Screen NEGATIVE NEGATIVE Urine Amphetamines Screen NEGATIVE NEGATIVE Urine Methamphetamines Screen NEGATIVE NEGATIVE Urine Benzodiazepines Screen NEGATIVE NEGATIVE Urine Cocaine Screen NEGATIVE NEGATIVE Urine Cannabinoids Screen NEGATIVE NEGATIVE My Orders Orders - BABATUNDE FOSTER MD Chest 1 View Ap/Pa Only (04/27/23 22:05) Cbc And Automated Diff (04/27/23 22:05) Comprehensive Metabolic Panel (04/27/23 22:05) Fibrin Degradation Products (04/27/23 22:05) Drug Screen Stat (Urine) (04/27/23 22:05) Magnesium (04/27/23 22:05) Protime With Inr (04/27/23 22:05) Partial Thromboplastin Time (04/27/23 22:05) Ua Culture If Indicated (04/27/23 22:05) Probnp Fs (04/27/23 22:05) Troponin I Fs (04/27/23 22:05) Ipratropium/Albuterol Inh Soln (Ipratrop (04/27/23 22:15) Methylprednisolone Sod Succ (Methylpredn (04/27/23 22:06) Svn Small Volume Nebulizer (04/27/23 22:06) Influenza A And B By Pcr (04/27/23 22:23) Covid 19 Inhouse Test (04/27/23 22:23) Ct Angio Chest W (04/27/23 23:00) Urine Culture (04/27/23 22:45) Ipratropium/Albuterol Inh Soln (Ipratrop (04/27/23 23:15) Svn Small Volume Nebulizer (04/27/23 23:07) Azithromycin Tablet (Azithromycin Tabl (04/28/23 00:45) Ipratropium/Albuterol Inh Soln (Ipratrop (04/28/23 00:45) Svn Small Volume Nebulizer (04/28/23 00:32) Medications Given in ED Current Medications Medications Dose Ordered Sig/Gallito Route Start Time Stop Time Status Last Admin Dose Admin Albuterol/ Ipratropium 3 ml ONCE ONCE INH 04/27/23 22:15 04/27/23 22:16 DC 04/27/23 22:22 3 ML Albuterol/ Ipratropium 3 ml ONCE ONCE INH 04/27/23 23:15 04/27/23 23:16 DC 04/27/23 23:28 3 ML Albuterol/ Ipratropium 3 ml ONCE ONCE INH 04/28/23 00:45 04/28/23 00:46 DC 04/28/23 00:45 3 ML Azithromycin 500 mg ONCE ONCE PO 04/28/23 00:45 04/28/23 00:46 DC 04/28/23 00:45 500 MG Vital Signs/I&O 04/27/23 04/27/23 21:50 22:03 Temp 36.1 Pulse 88 Resp 24 B/P (MAP) 126/57 (80) Pulse Ox 95 O2 Delivery Nasal Cannula Room Air O2 Flow Rate 3.00 Capillary Refill : Progress Note : Progress Note 1. ACUTE COPD EXACERBATION/ PNEUMONITIS: - CXR: pneumonitis - CTA CHEST: Negative for PE. Strandy infiltrate in the right upper lobe likely pneumonitis. Atelectasis present as well. - CBC/CMP: normal WBC, unremarkable - BNP: 890 - UA/ UDS: Negative for infection, positive for opiates and TCA - COVID test/ Rapid flu test: negative - Duo Neb x3 in the ER, and 1 in the ambulance. Patient's symptoms resolved, and lungs are clear upon discharge. - Solumedrol 125mg iv STAT -Prescription given for prednisone 50 mg daily for the next 3 days - Azithromycin for 3 days , first tab given in the ER. -Follow-up with PCP within the next 7 days -Patient did not need any oxygen in the ER, and her oxygen saturation is 100% on room air -The patient was seen in the ED, and treated appropriately to presentation at a specific point in time. Patient is informed that there is a possibility that disease and illness can evolve and change in acuity rapidly or slowly after adiel galdamez is discharged from the ER. Precautionary advice given to the patient for immediate return to ER if symptoms worsen or do not resolve, and to seek emergency care sooner rather than later. Pt also advised on the importance of PCP follow up and compliance with management and follow up plan with PCP and/or specialist, as this is part of the management plan. Pt verbally expressed understanding. Diagnostic Imaging Diagonstic Imaging: Xray, CT Plain Films/CT/US/NM/MRI: chest Departure Impression Primary Impression: Acute exacerbation of chronic obstructive pulmonary disease (COPD) Disposition: HOME, SELF-CARE Condition: Stable Departure-Patient Inst. Referrals: SUNNY FUNEZ MD (PCP/Family) Primary Care Physician Patient Instructions: COPD Exacerbation, Adult ED, Medicines for chronic obstructive pulmonary disease (COPD), Oral steroid medicines, COPD Diet Add. Discharge Instructions: -Prescription given for prednisone 50 mg daily for the next 3 days - Azithromycin for 3 days , first tab given in the ER. -Follow-up with PCP within the next 7 days All discharge instructions reviewed with patient and/or family. Voiced understanding. Scripts Prednisone (Prednisone) 50 Mg Tab 50 MG PO DAILY for 3 Days, #3 TAB Prov: BABATUNDE FOSTER MD 04/28/23 Azithromycin (Azithromycin) 500 Mg Tablet 500 MG PO HS for 2 Days, #2 TAB Prov: BABATUNDE FOSTER MD 04/28/23 BABATUNDE FOSTER MD Apr 27, 2023 22:04
[2023-04-27] MEDS ORDERED: methylPREDNISolone INJ 125 MG VIAL IV STA (22:06)
[2023-04-27 22:13] LABS: BASOPHILS % (AUTO) 0 % (0-10); EOSINOPHILS # (AUTO) 0.2 10^3/uL (0.0-0.3); EOSINOPHILS % (AUTO) 3 % (0-10); HEMATOCRIT 35 % (35-52); HEMOGLOBIN 10.8 g/dL (11.5-16.0); LYMPHOCYTES # (AUTO) 2.6 10^3/uL (1.0-4.0); LYMPHOCYTES % (AUTO) 39 % (12-44); MEAN CORPUSCULAR HEMOGLOBIN 29 pg (25-34); MEAN CORPUSCULAR HGB CONC 31 g/dL (32-36); MEAN CORPUSCULAR VOLUME 93 fL (80-99); MEAN PLATELET VOLUME 10.5 fL (9.0-12.2); MONOCYTES # (AUTO) 0.4 10^3/uL (0.0-1.0); MONOCYTES % (AUTO) 6 % (0-12); NEUTROPHILS # (AUTO) 3.5 10^3/uL (1.8-7.8); NEUTROPHILS % (AUTO) 52 % (42-75); PLATELET COUNT 240 10^3/uL (130-400); WHITE BLOOD COUNT 6.8 10^3/uL (4.3-11.0)
[2023-04-27] MEDS ORDERED: RT-Ipratropium/Albuterol NEB 3 ML VIAL INH ONE ×2 (22:15→23:15)
[2023-04-27 22:36] LABS: FIBRIN DEGRADATION PRODUCTS 0.51 UG/ML (0.00-0.49); PROTHROMBIN TIME PATIENT 13.5 SEC (12.2-14.7)
[2023-04-27 22:37] LABS: BUN/CREATININE RATIO 27; CARBON DIOXIDE 24 MMOL/L (21-32); CHLORIDE 103 MMOL/L (98-107); CREATININE SERUM 0.96 MG/DL (0.60-1.30); GFR ESTIMATED 66; POTASSIUM 4.1 MMOL/L (3.6-5.0); SODIUM 140 MMOL/L (135-145)
[2023-04-27 22:38] LABS: ALANINE AMINOTRANSFERASE 15 U/L (0-55); ALBUMIN 4.1 GM/DL (3.2-4.5); ALKALINE PHOSPHATASE 99 U/L (40-136); BILIRUBIN,TOTAL 0.3 MG/DL (0.1-1.0); CALCIUM 9.2 MG/DL (8.5-10.1); GLUCOSE 150 MG/DL (70-105); TOTAL PROTEIN 7.1 GM/DL (6.4-8.2)
[2023-04-27 22:56] LABS: BILIRUBIN,URINE NEGATIVE (NEGATIVE); COLOR,URINE YELLOW; GLUCOSE, URINE (UA) NEGATIVE (NEGATIVE); KETONES,URINE NEGATIVE (NEGATIVE); LEUKOCYTE ESTERASE ,URINE NEGATIVE (NEGATIVE); NITRITE,URINE NEGATIVE (NEGATIVE); PROTEIN,URINE NEGATIVE (NEGATIVE)
[2023-04-27 23:03] LABS: BACTERIA,URINE MODERATE /HPF; CLARITY,URINE SL CLOUDY
[2023-04-27 23:04] LABS: SQUAMOUS EPITHELIAL CELL,UR RARE /HPF
[2023-04-27 23:05] LABS: AMPHETAMINE SCREEN, URINE NEGATIVE (NEGATIVE); BARBITURATE SCREEN URINE NEGATIVE (NEGATIVE); CANNABINOID SCREEN, URINE NEGATIVE (NEGATIVE); COCAINE SCREEN URINE NEGATIVE (NEGATIVE); METHADONE STAT NEGATIVE (NEGATIVE); OPIATE SCREEN URINE POSITIVE (NEGATIVE); OXYCODONE STAT NEGATIVE (NEGATIVE); TRICYCLIC ANTIDEPRESSANTS SCRE POSITIVE (NEGATIVE)
[2023-04-28] MEDS ORDERED: RT-Ipratropium/Albuterol NEB 3 ML VIAL INH ONE (00:45)
[2023-04-28] MEDS ORDERED: AZITHROMYCIN 250 MG TABLET PO ONE (00:45)
[2023-04-28] MEDS ORDERED: AZIT500T9 PO (01:25)
[2023-04-28] MEDS ORDERED: PRD50T PO (01:25)
[2023-04-28 01:29] VITALS: BP 193/99
--- NOTE | 2023-04-28 07:36 | Diagnostic Imaging Report ---
PROCEDURE: CT angiography Chest TECHNIQUE: After intravenous administration of contrast, thin section axial CT angiography of the chest was performed. 3D MIP reconstructions were made. All CT scans use one or more of the following dose optimizing techniques: automated exposure control, MA and/or KvP adjustment based on a patient size and exam type, or iterative reconstruction. INDICATION: Shortness of breath and elevated d-dimer COMPARISON: CTA chest from 03/22/2022 FINDINGS: Vasculature: No pulmonary emboli. No CT evidence of pulmonary hypertension or right ventricular strain. Thoracic aorta is normal in caliber. No aortic dissection or pseudoaneurysm. Heart and mediastinum: Visualized thyroid is normal. No supraclavicular, axillary, or intra-thoracic lymphadenopathy. The heart is normal in size without pericardial effusion. Pleura: No pleural effusion or pneumothorax. Lungs and airway: No endoluminal lesion in the trachea or central bronchi. Scattered areas of groundglass and architectural distortion within the bilateral upper lobes and right lower lobe are not changed. No pneumonia or edema has developed. Upper abdomen: No concerning abnormality in the upper abdomen. Musculoskeletal: No concerning osseous lesion. IMPRESSION: 1. No acute cardiopulmonary process. Specifically, no pulmonary emboli or acute aortic syndrome. 2. Scattered areas of atelectasis/scar within both lungs are stable. Dictated by: Dictated on workstation # [id number]
--- NOTE | 2023-04-28 07:52 | Diagnostic Imaging Report ---
EXAMINATION: Chest radiograph, portable AP view. DATE: 04/27/2023 10:25 PM INDICATION: 62-year-old female, shortness of breath. COMPARISON: June 09, 2022. FINDINGS: Heart size and mediastinal contours are unchanged. There is no identified pneumothorax. The right lung base is incompletely imaged. There is no identified large pleural effusion. There are predominantly linear opacities in the right midlung which appear unchanged may reflect scarring. There is no identified focal airspace consolidation in the included [id number]. IMPRESSION: 1. No identified acute cardiopulmonary abnormality. 2. The right lung base is incompletely imaged. Dictated by: Dictated on workstation # [id number]
== END 2023-04-28 01:29 | disposition home or self-care (01) ==
LOC: EDUNIT# 21:50 → ER FS 21:52
DX: J44.1 Chronic obstructive pulmonary disease with (acute) exacerbation (principal); E66.9 Obesity, unspecified; Z68.38 Body mass index [BMI] 38.0-38.9, adult; Z99.81 Dependence on supplemental oxygen; Z91.040 Latex allergy status
CPT/HCPCS: 36415; 71045; 71275; 80053; 80306; 81000; 83735; 83880; 84484; 85025; 85379; 85610; 85730; 87077; 87088; 87184; 87186; 87636; 94640; 96374

== ENCOUNTER 2023-05-09 12:13 | Emergency (ER) | payer MEDICAID ==
[~2023-05-09] VITALS: Ht 165 cm; Wt 114.0 kg
[~2023-05-09 12:13] MED LIST changes: +AZIT500T9 PO; +PRD50T PO
[2023-05-09 12:22] VITALS: BP 140/59
--- NOTE | 2023-05-09 12:28 | ED General ---
General Chief Complaint: COVID19 Suspect/Confirmed Stated Complaint: DIZZNESS; NAUSEA; COVID+ History of Present Illness Date Seen by Provider: May 09, 2023 Time Seen by Provider: 12:23 Initial Comments 62-year-old female with PMH of long-haul COVID syndrome/COPD/A-fib/obesity, is sent here from clinic for assessment of patient's COVID symptoms. Patient has been having generalized body aches, loss of appetite, nausea, congestion, intermittent cough for the past 10 days. Patient was tested positive for COVID just yesterday. Denies vomiting, diarrhea, abdominal pain, chest pain, shortness of breath. Patient is alert and oriented and is not coughing in the ER. No known sick contacts. Patient has also had COVID a year ago and states that she has been ill very frequently since then. Patient is not a smoker. Allergies and Home Medications Allergies Coded Allergies: cephalexin (Verified Allergy, Severe, Has received ceftriaxone in the past w/o issue, 11/29/21) Latex, Natural Rubber (Verified Allergy, Unknown, 10/06/22) zolpidem (Verified Adverse Reaction, Unknown, SLEEP WALKING, 12/26/22) Patient Home Medication List Home Medication List Reviewed: Yes Albuterol Sulfate (Proair Digihaler) 90 Mcg Aer.pw.bas, 90 MCG PO Q4H PRN for WHEEZING, (Reported) Entered as Reported by: JESSICA DUTTON on 10/20/22 1027 Apixaban (Eliquis) 5 Mg Tablet, 5 MG PO BID, (Reported) Entered as Reported by: JESSICA DUTTON on 10/20/22 1027 Ascorbic Acid/Ascorbate Sodium (Vitamin C 500 mg Tablet Chew) 500 Mg Tab.chew, 500 MG PO BID, (Reported) Entered as Reported by: JESSICA DUTTON on 10/20/22 1027 Azithromycin (Azithromycin) 500 Mg Tablet, 500 MG PO HS Prescribed by: BABATUNDE FOSTER MD on 04/28/23 0125 Cholecalciferol (Vitamin D3) (Vitamin D3) 125 Mcg (5000 Unit) Capsule, 125 MCG PO BID, (Reported) Entered as Reported by: JESSICA DUTTON on 10/20/22 1027 Flecainide Acetate (Flecainide Acetate) 100 Mg Tablet, 100 MG PO BID, (Reported) Entered as Reported by: JESSICA DUTTON on 10/20/22 1027 Fluticasone Propion/Salmeterol (Fluticasone-Salmeterol 500-50) 500 Mcg-50 Mcg/Dose Blst.w.dev, 1 PUFF IH BID, (Reported) Entered as Reported by: JESSICA DUTTON on 10/20/22 1027 Furosemide (Furosemide) 20 Mg Tablet, 40 MG PO DAILY, (Reported) Entered as Reported by: JESSICA DUTTON on 10/20/22 1027 Hydrocodone/Acetaminophen (Hydrocodone-Acetamin 5-325 mg) 5 Mg-325 Mg Tablet, 1 TAB PO TID PRN for PAIN-MODERATE (5-7), (Reported) Entered as Reported by: JESSICA DUTTON on 10/20/22 1027 Hydroxyzine Pamoate (Hydroxyzine Pamoate) 25 Mg Capsule, 25 MG PO BID PRN for ANXIETY, (Reported) Entered as Reported by: JESSICA DUTTON on 10/20/22 1027 Metoprolol Succinate (Metoprolol Succinate) 100 Mg Tab.er.24h, 100 MG PO DAILY, (Reported) Entered as Reported by: JESSICA DUTTON on 10/20/22 1027 Mirtazapine (Mirtazapine) 15 Mg Tablet, 15 MG PO HS, (Reported) Entered as Reported by: JESSICA DUTTON on 10/20/22 1027 Multivit-Minerals/Folic Acid (Multivitamin Gummies) 200 Mcg Tab.chew, 200 MCG PO DAILY, (Reported) Entered as Reported by: INGRID SLADE on 12/06/21 0946 Ondansetron (Ondansetron Odt) 4 Mg Tab.rapdis, 4 MG SL Q4H PRN for NAUSEA/VOMITING Prescribed by: CIARA SIMEON on 01/04/23 0155 Potassium Citrate (Potassium) 99 Mg Capsule, 99 MG PO DAILY, (Reported) Entered as Reported by: JESSICA DUTTON on 10/20/22 1027 Pramipexole Di-HCl (Mirapex) 0.5 Mg Tablet, 0.5 MG PO HS, (Reported) Entered as Reported by: JESSICA DUTTON on 10/20/22 1027 Prednisone (Prednisone) 50 Mg Tab, 50 MG PO DAILY Prescribed by: BABATUNDE FOSTER MD on 04/28/23 0125 Quetiapine Fumarate (Quetiapine Fumarate) 100 Mg Tablet, 100 MG PO 0800,1200, (Reported) Entered as Reported by: JESSICA DUTTON on 10/20/22 1027 Quetiapine Fumarate (Quetiapine Fumarate) 300 Mg Tablet, 600 MG PO HS, (Reported) Entered as Reported by: JESSICA DUTTON on 10/20/22 1027 Saccharomyces Boulardii/Yeast (Saccharomyces Boulardii-Mos Cp) 5 Billion Cell- 200 Mg Capsule.dr, 1 EACH PO DAILY, (Reported) Entered as Reported by: JESSICA DUTTON on 10/20/22 1027 Sertraline HCl (Sertraline HCl) 100 Mg Tablet, 150 MG PO DAILY, (Reported) Entered as Reported by: JESSICA DUTTON on 10/20/22 1027 Zinc Gluconate (Zinc) 50 Mg Tablet, 50 MG PO DAILY, (Reported) Entered as Reported by: JESSICA DUTTON on 10/20/22 1027 Review of Systems Review of Systems Constitutional: see HPI, malaise EENTM: no symptoms reported Respiratory: cough Cardiovascular: no symptoms reported Gastrointestinal: see HPI, loss of appetite, nausea Skin: no symptoms reported Past Xrhhqhy-Csbfis-Aktzvl Hx Patient Social History Tobacco Use?: No Substance use?: No Alcohol Use?: No Immunizations Up To Date Tetanus Booster (TDap): Unknown First/Initial COVID19 Vaccinat: Second COVID19 Vaccination Minor: Third COVID19 Vaccination Date: Seasonal Allergies Seasonal Allergies: No Past Medical History Surgery/Hospitalization HX: Alcohol Abuse Hx, Bipolar, HTN, COPD, ANIYA, SI Hx, Cardiomyopathy, Hyperlipidemia, A Fib, Cholecystectomy, Appendectomy, Hysterectomy, Colonoscopy Surgeries: Yes (gastric bypass, esophagus sx, salpingectomy) Appendectomy, Section, Gallbladder Respiratory: Yes (hx of lung issues after covid, uses oxygen prn) COPD Cardiac: Yes Atrial Fibrillation, High Cholesterol, Hypertension Neurological: Yes Headaches /Migraines Reproductive Disorders: No Genitourinary: No Gastrointestinal: Yes (+cologuard) Gastroesophageal Reflux, Chronic Constipation, Chronic Diarrhea Musculoskeletal: Yes Arthritis, Chronic Back Pain Endocrine: No HEENT: No (partial denture) Cancer: No Psychosocial: Yes Anxiety, Bipolar, Depression Integumentary: No Blood Disorders: Yes (hx of anemia) Family Medical History No Pertinent Family Hx Physical Exam Vital Signs Vital Signs - First Documented 05/09/23 12:22 Temp 36.6 Pulse 77 Resp 18 B/P (MAP) 140/59 (86) Pulse Ox 99 O2 Delivery Room Air Capillary Refill : Height, Weight, BMI Height: '" Weight: lbs. oz. kg; 39.00 BMI Method: General Appearance: No Apparent Distress, WD/WN HEENT: PERRL/EOMI, Normal ENT Inspection Neck: Full Range of Motion, Normal Inspection, Non Tender, Supple Respiratory: Chest Non Tender, Lungs Clear, Normal Breath Sounds Cardiovascular: Regular Rate, Rhythm Gastrointestinal: Normal Bowel Sounds, Non Tender, Soft Neurologic/Psychiatric: Alert, Oriented x3, Normal Mood/Affect Skin: Normal Color Lymphatic: No Adenopathy Progress/Results/Core Measures Suspected Sepsis SIRS Temperature: Pulse: Respiratory Rate: Blood Pressure / Mean: Results/Orders My Orders Orders - BABATUNDE FOSTER MD Ed Iv/Invasive Line Start (05/09/23 12:37) Normal Saline 1l Bolus (05/09/23 12:45) Vital Signs/I&O 05/09/23 12:22 Temp 36.6 Pulse 77 Resp 18 B/P (MAP) 140/59 (86) Pulse Ox 99 O2 Delivery Room Air Capillary Refill : Progress Note : Progress Note 1. COVID POSITIVE: - NS IVF bolus - Zofran 4mg iv - Pt feels better after fluids and Zofran - Zofran prescription to be taken every 6 hours as needed for nausea and vomiting. - Follow up with PCP within 1 week - Adequate hydration advised -The patient was seen in the ED, and treated appropriately to presentation at a specific point in time. Patient is informed that there is a possibility that disease and illness can evolve and change in acuity rapidly or slowly after patient is discharged from the ER. Precautionary advice given to the patient for immediate return to ER if symptoms worsen or do not resolve, and to seek e mergency care sooner rather than later. Pt also advised on the importance of PCP follow up and compliance with management and follow up plan with PCP and/or specialist, as this is part of the management plan. Pt verbally expressed understanding. Departure Impression Primary Impression: COVID-19 Disposition: 01 HOME, SELF-CARE Condition: Improved Departure-Patient Inst. Referrals: APRIL OCAMPO APRN (PCP) Primary Care Physician [facility] (Family) Primary Care Physician Patient Instructions: Long COVID Add. Discharge Instructions: - Zofran prescription to be taken every 6 hours as needed for nausea and vomiting. - Follow up with PCP within 1 week - Adequate hydration advised All discharge instructions reviewed with patient and/or family. Voiced understanding. Scripts Ondansetron (Ondansetron Odt) 4 Mg Tab.rapdis 4 MG SL Q6H PRN for NAUSEA/VOMITING for 4 Days, #20 TAB Prov: BABATUNDE FOSTER MD 05/09/23 BABATUNDE FOSTER MD May 09, 2023 12:28
[2023-05-09] MEDS ORDERED: ONDANSETRON INJECTION 4 MG/2 ML (SDV) IVP ONE (12:45)
[2023-05-09] MEDS ORDERED: NS IV 1000 ML 1,000 ML IV SCH (12:45)
[2023-05-09] MEDS ORDERED: ONDA4TAB11 SL (13:07)
== END 2023-05-09 13:30 | disposition home or self-care (01) ==
LOC: EDUNIT# 12:13 → ER FS 12:14
DX: U07.1 COVID-19 (principal); R42 Dizziness and giddiness; R63.0 Anorexia; R11.0 Nausea; R09.81 Nasal congestion; R05.9 Cough, unspecified; R52 Pain, unspecified; E66.9 Obesity, unspecified; Z68.39 Body mass index [BMI] 39.0-39.9, adult; Z91.040 Latex allergy status; Z73.0 Burn-out